=== PATIENT | male | born 1980 | race Two or more races ===

== ENCOUNTER 2019-12-06 12:43 | Outpatient (REF) | payer MEDICARE, MEDICAID, SELFPAY ==
[2019-12-06 13:23] LABS: MANUAL DIFF FLAG NO
[2019-12-06 13:38] LABS: Basophils Percent Auto 0.1 % (0-2); Eosinophils Percent Auto 0.1 % (0-4); Hematocrit 44.8 % (42-52); Hemoglobin 13.1 g/dl (14.0-18.0); Imm Gran Abs Auto 0.06 X10*3/uL (0.00-0.03); Imm Gran Pct Auto 0.6 % (0.0-0.4); Lymphocytes Absolute Auto 2.6 X10*3/uL (1.2-4.9); Lymphocytes Percent Auto 27.2 % (20-40); Mean Corpuscular HGB Conc 29.2 g/dl (31.0-36.0); Mean Corpuscular Hemoglobin 21.2 pg (27.0-33.0); Mean Corpuscular Volume 72.5 fL (80-98); Mean Platelet Volume 10.1 fL (9.4-12.4); Monocytes Absolute Auto 0.7 X10*3/uL (0.1-1.2); Monocytes Percent Auto 7.1 % (2-11); Neutrophils Absolute Auto 6.1 X10*3/uL (2.0-8.3); Neutrophils Percent Auto 64.9 % (45-73); Platelet Count 305 X10*3/uL (160-400); Red Blood Count 6.18 X10*6/uL (4.60-5.80); Red Cell Distribution Width 20.3 % (11.0-16.0); White Blood Count 9.4 X10*3/uL (4.8-10.8)
== END 2019-12-06 12:44 | disposition home or self-care (01) ==
LOC: HO.LABR 12:43
PROVIDERS: PCP Internal Medicine; Visit Provider Clinical Nurse Specialist Psychiatric/Mental Health, Adult
DX: Z79.899 Other long term (current) drug therapy (principal)
CPT/HCPCS: 36415; 85025

== ENCOUNTER 2019-12-27 09:57 | Outpatient (REF) | payer MEDICARE, MEDICAID, SELFPAY ==
[2019-12-27 10:36] LABS: MANUAL DIFF FLAG NO
[2019-12-27 10:49] LABS: Basophils Percent Auto 0.1 % (0-2); Hematocrit 45.3 % (42-52); Hemoglobin 13.2 g/dl (14.0-18.0); Imm Gran Abs Auto 0.06 X10*3/uL (0.00-0.03); Imm Gran Pct Auto 0.6 % (0.0-0.4); Lymphocytes Absolute Auto 2.5 X10*3/uL (1.2-4.9); Lymphocytes Percent Auto 25.5 % (20-40); Mean Corpuscular HGB Conc 29.1 g/dl (31.0-36.0); Mean Corpuscular Hemoglobin 21.1 pg (27.0-33.0); Mean Corpuscular Volume 72.2 fL (80-98); Mean Platelet Volume 10.2 fL (9.4-12.4); Monocytes Absolute Auto 0.8 X10*3/uL (0.1-1.2); Neutrophils Absolute Auto 6.4 X10*3/uL (2.0-8.3); Neutrophils Percent Auto 65.8 % (45-73); Platelet Count 293 X10*3/uL (160-400); Red Blood Count 6.27 X10*6/uL (4.60-5.80); Red Cell Distribution Width 19.9 % (11.0-16.0); White Blood Count 9.7 X10*3/uL (4.8-10.8)
== END 2019-12-27 09:58 | disposition home or self-care (01) ==
LOC: HO.LABR 09:57
PROVIDERS: PCP Internal Medicine; Visit Provider Clinical Nurse Specialist Psychiatric/Mental Health, Adult
DX: Z79.899 Other long term (current) drug therapy (principal)
CPT/HCPCS: 36415; 85025

== ENCOUNTER 2020-01-16 12:38 | Outpatient (REF) | payer MEDICARE, MEDICAID, SELFPAY ==
[2020-01-16 13:33] LABS: Mean Corpuscular Volume 71.8 fL (80-98); Red Blood Count 6.27 X10*6/uL (4.60-5.80); Red Cell Distribution Width 19.6 % (11.0-16.0)
[2020-01-16 13:36] LABS: Hemoglobin 13.1 g/dl (14.0-18.0); Imm Gran Abs Auto 0.04 X10*3/uL (0.00-0.03); Imm Gran Pct Auto 0.4 % (0.0-0.4); Lymphocytes Absolute Auto 2.3 X10*3/uL (1.2-4.9); Lymphocytes Percent Auto 21.7 % (20-40); Mean Corpuscular HGB Conc 29.1 g/dl (31.0-36.0); Mean Corpuscular Hemoglobin 20.9 pg (27.0-33.0); Monocytes Absolute Auto 0.7 X10*3/uL (0.1-1.2); Monocytes Percent Auto 6.9 % (2-11); Neutrophils Absolute Auto 7.7 X10*3/uL (2.0-8.3); Platelet Count 300 X10*3/uL (160-400); White Blood Count 10.8 X10*3/uL (4.8-10.8)
== END 2020-01-16 12:39 | disposition home or self-care (01) ==
LOC: HO.LABR 12:38
PROVIDERS: PCP Internal Medicine; Visit Provider Clinical Nurse Specialist Psychiatric/Mental Health, Adult
DX: Z79.899 Other long term (current) drug therapy (principal)
CPT/HCPCS: 36415; 85025

== ENCOUNTER 2020-02-06 14:00 | Outpatient (REF) | payer MEDICARE, MEDICAID, SELFPAY ==
[2020-02-06 15:04] LABS: Eosinophils Percent Auto 0.1 % (0-4); Imm Gran Abs Auto 0.03 X10*3/uL (0.00-0.03); Imm Gran Pct Auto 0.3 % (0.0-0.4); Lymphocytes Percent Auto 28.6 % (20-40); MANUAL DIFF FLAG SCAN; Red Cell Distribution Width 19.5 % (11.0-16.0); SCAN SMEAR FLAG 1
[2020-02-06 15:06] LABS: Basophils Percent Auto 0.2 % (0-2); Hematocrit 45.2 % (42-52); Hemoglobin 13.1 g/dl (14.0-18.0); Mean Corpuscular Hemoglobin 20.9 pg (27.0-33.0); Mean Corpuscular Volume 72.1 fL (80-98); Mean Platelet Volume 10.1 fL (9.4-12.4); Monocytes Absolute Auto 0.9 X10*3/uL (0.1-1.2); Monocytes Percent Auto 8.7 % (2-11); Neutrophils Absolute Auto 6.6 X10*3/uL (2.0-8.3); Neutrophils Percent Auto 62.1 % (45-73); Platelet Count 304 X10*3/uL (160-400); Red Blood Count 6.27 X10*6/uL (4.60-5.80); White Blood Count 10.6 X10*3/uL (4.8-10.8)
[2020-02-06 15:10] LABS: PLT ABN DIST 1
[2020-02-06 15:36] LABS: SLIDE REVIEW VERIFIED
== END 2020-02-06 14:01 | disposition home or self-care (01) ==
LOC: HO.LABR 14:00
PROVIDERS: PCP Internal Medicine; Visit Provider Clinical Nurse Specialist Psychiatric/Mental Health, Adult
DX: Z79.899 Other long term (current) drug therapy (principal)
CPT/HCPCS: 36415; 85025

== ENCOUNTER 2020-03-05 10:01 | Outpatient (REF) | payer MEDICARE, MEDICAID, SELFPAY ==
[2020-03-05 10:45] LABS: Eosinophils Percent Auto 0.1 % (0-4)
[2020-03-05 10:46] LABS: Basophils Percent Auto 0.1 % (0-2); Imm Gran Abs Auto 0.04 X10*3/uL (0.00-0.03); Imm Gran Pct Auto 0.4 % (0.0-0.4); Lymphocytes Absolute Auto 2.1 X10*3/uL (1.2-4.9); Lymphocytes Percent Auto 23.8 % (20-40); Mean Corpuscular HGB Conc 29.5 g/dl (31.0-36.0); Mean Corpuscular Hemoglobin 21.5 pg (27.0-33.0); Mean Corpuscular Volume 72.6 fL (80-98); Mean Platelet Volume 10.4 fL (9.4-12.4); Monocytes Absolute Auto 0.7 X10*3/uL (0.1-1.2); Monocytes Percent Auto 7.3 % (2-11); Neutrophils Absolute Auto 6.1 X10*3/uL (2.0-8.3); Neutrophils Percent Auto 68.3 % (45-73); Platelet Count 310 X10*3/uL (160-400); Red Blood Count 6.06 X10*6/uL (4.60-5.80); Red Cell Distribution Width 19.9 % (11.0-16.0)
[2020-03-05 10:51] LABS: MANUAL DIFF FLAG NO
== END 2020-03-05 10:02 | disposition home or self-care (01) ==
LOC: HO.LABR 10:01
PROVIDERS: PCP Internal Medicine; Visit Provider Clinical Nurse Specialist Psychiatric/Mental Health, Adult
DX: Z79.899 Other long term (current) drug therapy (principal)
CPT/HCPCS: 36415; 85025

== ENCOUNTER 2020-04-02 13:20 | Outpatient (REF) | payer MEDICARE, MEDICAID, SELFPAY ==
[2020-04-02 14:20] LABS: Mean Corpuscular Volume 71.8 fL (80-98)
[2020-04-02 14:22] LABS: Basophils Percent Auto 0.1 % (0-2); Eosinophils Percent Auto 0.1 % (0-4); Hemoglobin 13.3 g/dl (14.0-18.0); Imm Gran Abs Auto 0.04 X10*3/uL (0.00-0.03); Imm Gran Pct Auto 0.4 % (0.0-0.4); Lymphocytes Absolute Auto 3.1 X10*3/uL (1.2-4.9); Lymphocytes Percent Auto 29.9 % (20-40); Mean Corpuscular HGB Conc 29.6 g/dl (31.0-36.0); Mean Corpuscular Hemoglobin 21.2 pg (27.0-33.0); Monocytes Absolute Auto 0.7 X10*3/uL (0.1-1.2); Monocytes Percent Auto 7.1 % (2-11); Neutrophils Absolute Auto 6.4 X10*3/uL (2.0-8.3); Neutrophils Percent Auto 62.4 % (45-73); Platelet Count 314 X10*3/uL (160-400); Red Blood Count 6.27 X10*6/uL (4.60-5.80); Red Cell Distribution Width 19.7 % (11.0-16.0); White Blood Count 10.3 X10*3/uL (4.8-10.8)
[2020-04-02 14:39] LABS: MANUAL DIFF FLAG NO
[2020-04-02 14:44] LABS: Lithium 0.45 mmol/L (0.60-1.20)
[2020-04-02 14:47] LABS: Anion Gap 18 (12-20); Blood Urea Nitrogen 14 mg/dL (9-16); Carbon Dioxide 21 mmol/L (22-29); Chloride 104 mmol/L (96-108); Estimated Glomerular Filt Rate > 60; Glucose Random 213 mg/dL (60-115); Potassium 5.3 mmol/L (3.3-5.1); Sodium 138 mmol/L (135-145)
[2020-04-02 14:54] LABS: Thyroid Stimulating Hormone 2.81 uIU/mL (0.32-4.0)
[2020-04-02 14:56] LABS: Calcium 10.8 mg/dL (8.4-10.2)
== END 2020-04-02 13:21 | disposition home or self-care (01) ==
LOC: HO.LAB 13:20
PROVIDERS: PCP Internal Medicine; Visit Provider Clinical Nurse Specialist Psychiatric/Mental Health, Adult
DX: Z79.899 Other long term (current) drug therapy (principal)
CPT/HCPCS: 36415; 80048; 80178; 84443; 85025

== ENCOUNTER 2020-04-03 13:51 | Outpatient (REF) | payer MEDICARE, MEDICAID, SELFPAY ==
[2020-04-03 16:45] LABS: Basophils Percent Auto 0.1 % (0-2); Hemoglobin 13.2 g/dl (14.0-18.0); Imm Gran Pct Auto 0.5 % (0.0-0.4); MANUAL DIFF FLAG SCAN; SCAN SMEAR FLAG 1
[2020-04-03 16:46] LABS: Eosinophils Absolute Auto 0.1 X10*3/uL (0.0-0.4); Eosinophils Percent Auto 0.5 % (0-4); Hematocrit 44.1 % (42-52); Imm Gran Abs Auto 0.06 X10*3/uL (0.00-0.03); Lymphocytes Absolute Auto 3.4 X10*3/uL (1.2-4.9); Mean Corpuscular HGB Conc 29.9 g/dl (31.0-36.0); Mean Corpuscular Hemoglobin 21.5 pg (27.0-33.0); Mean Corpuscular Volume 71.9 fL (80-98); Monocytes Absolute Auto 0.8 X10*3/uL (0.1-1.2); Neutrophils Absolute Auto 6.7 X10*3/uL (2.0-8.3); Neutrophils Percent Auto 60.9 % (45-73); Platelet Count 341 X10*3/uL (160-400); Red Blood Count 6.13 X10*6/uL (4.60-5.80); Red Cell Distribution Width 19.6 % (11.0-16.0); White Blood Count 10.9 X10*3/uL (4.8-10.8)
[2020-04-03 16:47] LABS: PLT ABN DIST 1
[2020-04-03 17:06] LABS: Alanine Aminotransferase 22 U/L (0-40); Albumin Level 4.5 g/dL (3.5-5.0); Alkaline Phosphatase 119 U/L (39-117); Anion Gap 15 (12-20); Aspartate Amino Transferase 17 U/L (5-37); Bilirubin Total 0.2 mg/dL (0.0-1.0); Blood Urea Nitrogen 15 mg/dL (9-16); Calcium 10.1 mg/dL (8.4-10.2); Carbon Dioxide 21 mmol/L (22-29); Chloride 103 mmol/L (96-108); Cholesterol 212 mg/dL; Estimated Glomerular Filt Rate > 60; Glucose Fasting 112 mg/dL (60-99); HDL Cholesterol 30 mg/dL; Potassium 4.9 mmol/L (3.3-5.1); Sodium 134 mmol/L (135-145); Total Protein 7.9 g/dL (6.5-8.0); Triglycerides 545 mg/dL
[2020-04-03 17:11] LABS: SLIDE REVIEW VERIFIED
== END 2020-04-03 13:52 | disposition home or self-care (01) ==
LOC: HO.HMGCLDS 13:51
PROVIDERS: PCP Internal Medicine; Visit Provider Internal Medicine
DX: E11.65 Type 2 diabetes mellitus with hyperglycemia (principal); E78.5 Hyperlipidemia, unspecified; I10 Essential (primary) hypertension; Z79.4 Long term (current) use of insulin
CPT/HCPCS: 36415; 80053; 80061; 85025

== ENCOUNTER → 2020-04-25 11:07 | Outpatient (BNVA) | payer MEDICARE, MEDICAID, SELFPAY | PROVIDERS: PCP Internal Medicine; Visit Provider Internal Medicine Pulmonary Disease | DX: R91.1 Solitary pulmonary nodule (principal); J43.9 Emphysema, unspecified | CPT/HCPCS: 99202 ==

== ENCOUNTER 2020-04-29 12:49 | Outpatient (REF) | payer MEDICARE, MEDICAID, SELFPAY ==
[2020-04-29 13:55] LABS: Basophils Percent Auto 0.1 % (0-2); Hemoglobin 12.4 g/dl (14.0-18.0); MANUAL DIFF FLAG SCAN; Monocytes Absolute Auto 0.6 X10*3/uL (0.1-1.2); SCAN SMEAR FLAG 1
[2020-04-29 13:56] LABS: Eosinophils Percent Auto 0.1 % (0-4); Hematocrit 41.4 % (42-52); Imm Gran Abs Auto 0.03 X10*3/uL (0.00-0.03); Imm Gran Pct Auto 0.3 % (0.0-0.4); Lymphocytes Absolute Auto 2.7 X10*3/uL (1.2-4.9); Lymphocytes Percent Auto 29.6 % (20-40); Mean Corpuscular Hemoglobin 21.2 pg (27.0-33.0); Mean Corpuscular Volume 70.8 fL (80-98); Mean Platelet Volume 10.3 fL (9.4-12.4); Monocytes Percent Auto 7.1 % (2-11); Neutrophils Absolute Auto 5.7 X10*3/uL (2.0-8.3); Neutrophils Percent Auto 62.8 % (45-73); Platelet Count 305 X10*3/uL (160-400); Red Blood Count 5.85 X10*6/uL (4.60-5.80); Red Cell Distribution Width 19.2 % (11.0-16.0); White Blood Count 9.1 X10*3/uL (4.8-10.8)
[2020-04-29 14:02] LABS: PLT ABN DIST 1
[2020-04-29 14:56] LABS: SLIDE REVIEW VERIFIED
[2020-04-29 15:24] LABS: Creatinine Urine 31.33 mg/dL
== END 2020-04-29 12:50 | disposition home or self-care (01) ==
LOC: HO.LABR 12:49
PROVIDERS: Absent Provider Internal Medicine; PCP Internal Medicine; Visit Provider Clinical Nurse Specialist Psychiatric/Mental Health, Adult
DX: I10 Essential (primary) hypertension (principal); E78.5 Hyperlipidemia, unspecified; E11.65 Type 2 diabetes mellitus with hyperglycemia; Z79.899 Other long term (current) drug therapy; Z79.4 Long term (current) use of insulin
CPT/HCPCS: 36415; 82043; 85025

== ENCOUNTER 2020-05-17 12:41 | Outpatient (REF) | payer MEDICARE, MEDICAID, SELFPAY ==
--- NOTE | ~2020-05-17 | CT_ITS ---
EXAMINATION: CT CHEST WITHOUT CONTRAST CLINICAL INFORMATION: Pulmonary nodule. COMPARISON: CT chest 02/07/2015. TECHNIQUE: Multidetector volumetric CT imaging of the chest was done. Axial MIP volume rendering provided. Sagittal and coronal reformatted images were obtained. This CT examination was performed using dose optimization techniques as appropriate, variously including the following: *Automated exposure control *Adjustment of mA and/or kV according to patient size (this includes techniques or standardized protocols for targeted exams where dose is matched to indication/reason for exam; i.e. extremities or head) *Use of iterative reconstruction technique DLP: 225 mGy-cm FINDINGS: STUDIO MUSICIAN: Well-expanded lungs. LUNGS: There are diffuse emphysematous changes of the lungs without any acute pneumonic process. There is a 3 mm nodule right upper lobe along the posterior major fissure axial image 168/8, previously measured 2 mm. There is 3 mm nodule right upper lobe laterally axial image 168/6, stable. There is a 2 mm nodule left upper lobe axial image 174/8, stable. 2 mm two nodules in left upper lobe axial image 178/8, stable. 1 mm calcified nodule right lower lobe image 72/7, largest 9 mm nodule right middle lobe attached to the major fissure axial image 325/8, stable. There is no acute consolidation, mass or ground-glass density. MEDIASTINUM: The thyroid lobes are symmetric and normal. The central trachea and bronchi are widely patent. The heart size and the great vessels are normal caliber. No pericardial effusion seen. There are no abnormal-sized mediastinal or hilar lymph nodes seen. PLEURA: There is no pleural effusion. No pleural mass or thickening. AXILLA: No abnormal axillary lymph node seen. There is a 1.4 cm lymph node right axilla. The chest wall is unremarkable. UPPER ABDOMEN: There is likely mild cardiomegaly. Otherwise rest of visualized liver, spleen, pancreas and bilateral adrenal glands are unremarkable. Bone windows reveal no calvarial abnormality. OSSEOUS STRUCTURES: There is moderate ventral spondylosis mid and lower dorsal spine. No lytic process. CT/CT chest wo con IMPRESSION: Multiple bilateral pulmonary nodules. Some of the nodules including largest nodule appears slightly larger measuring 9 mm on today's exam compared to [address] chest exam. No abnormal mediastinal lymphadenopathy or mass seen.
== END 2020-05-17 12:42 | disposition home or self-care (01) ==
LOC: HO.CT 12:41
PROVIDERS: Visit Provider Internal Medicine Pulmonary Disease
DX: R91.1 Solitary pulmonary nodule (principal)
CPT/HCPCS: 71250

== ENCOUNTER → 2020-05-21 14:19 | Outpatient (BNVA) | payer MEDICARE, MEDICAID, SELFPAY | PROVIDERS: PCP Internal Medicine; Visit Provider Internal Medicine Pulmonary Disease | DX: J43.9 Emphysema, unspecified (principal); R91.8 Other nonspecific abnormal finding of lung field; F17.200 Nicotine dependence, unspecified, uncomplicated; Z71.6 Tobacco abuse counseling | CPT/HCPCS: 99212 ==

== ENCOUNTER 2020-05-27 13:23 | Outpatient (REF) | payer MEDICARE, MEDICAID, SELFPAY ==
[2020-05-27 13:40] LABS: MANUAL DIFF FLAG NO
[2020-05-27 13:42] LABS: Basophils Percent Auto 0.1 % (0-2); Eosinophils Percent Auto 0.2 % (0-4); Hematocrit 42.2 % (42-52); Hemoglobin 12.5 g/dl (14.0-18.0); Imm Gran Abs Auto 0.06 X10*3/uL (0.00-0.03); Imm Gran Pct Auto 0.6 % (0.0-0.4); Lymphocytes Absolute Auto 2.8 X10*3/uL (1.2-4.9); Lymphocytes Percent Auto 27.5 % (20-40); Mean Corpuscular HGB Conc 29.6 g/dl (31.0-36.0); Mean Corpuscular Volume 70.8 fL (80-98); Mean Platelet Volume 9.7 fL (9.4-12.4); Monocytes Absolute Auto 0.7 X10*3/uL (0.1-1.2); Monocytes Percent Auto 6.8 % (2-11); Neutrophils Absolute Auto 6.6 X10*3/uL (2.0-8.3); Neutrophils Percent Auto 64.8 % (45-73); Platelet Count 314 X10*3/uL (160-400); Red Blood Count 5.96 X10*6/uL (4.60-5.80); Red Cell Distribution Width 18.6 % (11.0-16.0); White Blood Count 10.2 X10*3/uL (4.8-10.8)
== END 2020-05-27 13:24 | disposition home or self-care (01) ==
LOC: HO.LABR 13:23
PROVIDERS: PCP Internal Medicine; Visit Provider Clinical Nurse Specialist Psychiatric/Mental Health, Adult
DX: Z79.899 Other long term (current) drug therapy (principal)
CPT/HCPCS: 36415; 85025

== ENCOUNTER 2020-05-29 12:38 | Outpatient (REF) | payer MEDICARE, MEDICAID, SELFPAY ==
--- NOTE | 2020-05-29 13:50 | PFT_ITS ---
FLOWS: FEV1 of 70% of predicted at 2.78 L. FVC 67% of predicted at 3.28 L. FEV1 to FVC ratio of 0.85. No bronchodilator response except in small to medium airways. LUNG VOLUMES: Total lung capacity 71% of predicted at 4.64 L. Residual volume 84% of predicted at 1.47 L. Slow vital capacity 66% of predicted at 3.17 L. Expiratory reserve volume 44% of predicted at 0.65 L. Diffusion capacity is moderately decreased, diffusion capacity improves to being mildly decreased after adjustment for alveolar ventilation. IMPRESSION: Moderate restrictive ventilatory defect with no bronchodilator response except in small to medium airways. Decreased diffusion capacity together with restrictive ventilatory defect suggests underlying pulmonary parenchymal disease. Clinical correlation is advised. MD DAVE Gardiner/MODL / [id number] MTDD
== END 2020-05-29 12:39 | disposition home or self-care (01) ==
LOC: HO.RESP 12:38
PROVIDERS: PCP Internal Medicine; Visit Provider Internal Medicine Pulmonary Disease
DX: J43.9 Emphysema, unspecified (principal)
CPT/HCPCS: 94060; 94727; 94729

== ENCOUNTER 2020-06-24 13:18 | Outpatient (REF) | payer MEDICARE, MEDICAID, SELFPAY ==
[2020-06-24 14:06] LABS: Basophils Percent Auto 0.2 % (0-2); Hematocrit 43.2 % (42-52); Red Cell Distribution Width 19.7 % (11.0-16.0); SCAN SMEAR FLAG 1
[2020-06-24 14:08] LABS: Eosinophils Percent Auto 0.2 % (0-4); Hemoglobin 12.3 g/dl (14.0-18.0); Imm Gran Abs Auto 0.04 X10*3/uL (0.00-0.03); Imm Gran Pct Auto 0.4 % (0.0-0.4); Lymphocytes Absolute Auto 2.9 X10*3/uL (1.2-4.9); Lymphocytes Percent Auto 27.6 % (20-40); Mean Corpuscular HGB Conc 28.5 g/dl (31.0-36.0); Mean Corpuscular Hemoglobin 20.3 pg (27.0-33.0); Mean Corpuscular Volume 71.3 fL (80-98); Mean Platelet Volume 10.2 fL (9.4-12.4); Monocytes Absolute Auto 0.8 X10*3/uL (0.1-1.2); Monocytes Percent Auto 7.4 % (2-11); Neutrophils Absolute Auto 6.7 X10*3/uL (2.0-8.3); Neutrophils Percent Auto 64.2 % (45-73); Platelet Count 283 X10*3/uL (160-400); Red Blood Count 6.06 X10*6/uL (4.60-5.80); White Blood Count 10.4 X10*3/uL (4.8-10.8)
[2020-06-24 14:14] LABS: PLT ABN DIST 1
== END 2020-06-24 13:19 | disposition home or self-care (01) ==
LOC: HO.LABR 13:18
PROVIDERS: PCP Internal Medicine; Visit Provider Clinical Nurse Specialist Psychiatric/Mental Health, Adult
DX: Z79.899 Other long term (current) drug therapy (principal)
CPT/HCPCS: 36415; 85025

== ENCOUNTER 2020-07-22 13:25 | Outpatient (REF) | payer MEDICARE, MEDICAID, SELFPAY ==
[2020-07-22 14:45] LABS: Basophils Percent Auto 0.1 % (0-2); Hemoglobin 12.4 g/dl (14.0-18.0); Lymphocytes Percent Auto 26.7 % (20-40); SCAN SMEAR FLAG 1
[2020-07-22 14:48] LABS: Hematocrit 43.1 % (42-52); Imm Gran Abs Auto 0.05 X10*3/uL (0.00-0.03); Imm Gran Pct Auto 0.5 % (0.0-0.4); Lymphocytes Absolute Auto 2.7 X10*3/uL (1.2-4.9); Mean Corpuscular HGB Conc 28.8 g/dl (31.0-36.0); Mean Corpuscular Hemoglobin 20.8 pg (27.0-33.0); Mean Corpuscular Volume 72.4 fL (80-98); Mean Platelet Volume 10.5 fL (9.4-12.4); Monocytes Absolute Auto 0.7 X10*3/uL (0.1-1.2); Monocytes Percent Auto 7.3 % (2-11); Neutrophils Absolute Auto 6.7 X10*3/uL (2.0-8.3); Neutrophils Percent Auto 65.4 % (45-73); Platelet Count 297 X10*3/uL (160-400); Red Blood Count 5.95 X10*6/uL (4.60-5.80); Red Cell Distribution Width 22.9 % (11.0-16.0); White Blood Count 10.2 X10*3/uL (4.8-10.8)
[2020-07-22 14:58] LABS: PLT ABN DIST 1
== END 2020-07-22 13:26 | disposition home or self-care (01) ==
LOC: HO.LABR 13:25
PROVIDERS: PCP Internal Medicine; Visit Provider Clinical Nurse Specialist Psychiatric/Mental Health, Adult
DX: Z79.899 Other long term (current) drug therapy (principal)
CPT/HCPCS: 36415; 85025

== ENCOUNTER 2020-08-19 11:19 | Outpatient (REF) | payer MEDICARE, MEDICAID, SELFPAY ==
[2020-08-19 12:01] LABS: Basophils Percent Auto 0.1 % (0-2); Imm Gran Abs Auto 0.05 X10*3/uL (0.00-0.03); Imm Gran Pct Auto 0.5 % (0.0-0.4); MANUAL DIFF FLAG SCAN; Monocytes Percent Auto 6.1 % (2-11); SCAN SMEAR FLAG 1
[2020-08-19 12:03] LABS: Eosinophils Percent Auto 0.1 % (0-4); Hematocrit 44.8 % (42-52); Hemoglobin 13.6 g/dl (14.0-18.0); Lymphocytes Absolute Auto 2.7 X10*3/uL (1.2-4.9); Lymphocytes Percent Auto 25.7 % (20-40); Mean Corpuscular HGB Conc 30.4 g/dl (31.0-36.0); Mean Corpuscular Hemoglobin 22.2 pg (27.0-33.0); Mean Corpuscular Volume 73.1 fL (80-98); Monocytes Absolute Auto 0.6 X10*3/uL (0.1-1.2); Neutrophils Percent Auto 67.5 % (45-73); Red Blood Count 6.13 X10*6/uL (4.60-5.80); Red Cell Distribution Width 23.2 % (11.0-16.0)
[2020-08-19 12:08] LABS: PLT ABN DIST 1
[2020-08-19 12:22] LABS: White Blood Count 10.4 X10*3/uL (4.8-10.8)
[2020-08-19 12:23] LABS: Platelet Count 295 X10*3/uL (160-400)
[2020-08-19 12:36] LABS: SLIDE REVIEW VERIFIED
== END 2020-08-19 11:20 | disposition home or self-care (01) ==
LOC: HO.LABR 11:19
PROVIDERS: PCP Internal Medicine; Visit Provider Clinical Nurse Specialist Psychiatric/Mental Health, Adult
DX: Z79.899 Other long term (current) drug therapy (principal)
CPT/HCPCS: 36415; 85025

== ENCOUNTER 2020-09-16 14:11 | Outpatient (REF) | payer MEDICARE, MEDICAID, SELFPAY ==
[2020-09-16 15:03] LABS: Basophils Percent Auto 0.1 % (0-2); Imm Gran Abs Auto 0.04 X10*3/uL (0.00-0.03); Imm Gran Pct Auto 0.4 % (0.0-0.4); Monocytes Absolute Auto 0.6 X10*3/uL (0.1-1.2); Neutrophils Percent Auto 67.4 % (45-73); Red Cell Distribution Width 22.5 % (11.0-16.0); SCAN SMEAR FLAG 1
[2020-09-16 15:05] LABS: Hematocrit 46.7 % (42-52); Hemoglobin 13.9 g/dl (14.0-18.0); Lymphocytes Absolute Auto 2.4 X10*3/uL (1.2-4.9); Lymphocytes Percent Auto 25.5 % (20-40); Mean Corpuscular HGB Conc 29.8 g/dl (31.0-36.0); Mean Corpuscular Hemoglobin 23.4 pg (27.0-33.0); Mean Corpuscular Volume 78.5 fL (80-98); Monocytes Percent Auto 6.6 % (2-11); Neutrophils Absolute Auto 6.2 X10*3/uL (2.0-8.3); Platelet Count 266 X10*3/uL (160-400); Red Blood Count 5.95 X10*6/uL (4.60-5.80); White Blood Count 9.3 X10*3/uL (4.8-10.8)
[2020-09-16 15:11] LABS: PLT ABN DIST 1
== END 2020-09-16 14:12 | disposition home or self-care (01) ==
LOC: HO.LABR 14:11
PROVIDERS: Absent Provider Clinical Nurse Specialist Psychiatric/Mental Health, Adult; PCP Internal Medicine; Visit Provider Internal Medicine
DX: Z79.899 Other long term (current) drug therapy (principal)
CPT/HCPCS: 36415; 85025

== ENCOUNTER 2020-09-30 09:53 | Outpatient (REF) | payer MEDICARE, MEDICAID, SELFPAY ==
[2020-09-30 11:21] LABS: MANUAL DIFF FLAG NO
[2020-09-30 11:49] LABS: Basophils Percent Auto 0.1 % (0-2); Hematocrit 51.8 % (42-52); Hemoglobin 15.7 g/dl (14.0-18.0); Imm Gran Abs Auto 0.04 X10*3/uL (0.00-0.03); Imm Gran Pct Auto 0.5 % (0.0-0.4); Lymphocytes Absolute Auto 2.2 X10*3/uL (1.2-4.9); Lymphocytes Percent Auto 25.1 % (20-40); Mean Corpuscular HGB Conc 30.3 g/dl (31.0-36.0); Mean Corpuscular Hemoglobin 24.1 pg (27.0-33.0); Mean Corpuscular Volume 79.6 fL (80-98); Mean Platelet Volume 9.9 fL (9.4-12.4); Monocytes Absolute Auto 0.6 X10*3/uL (0.1-1.2); Neutrophils Absolute Auto 5.8 X10*3/uL (2.0-8.3); Neutrophils Percent Auto 67.3 % (45-73); Platelet Count 254 X10*3/uL (160-400); Red Blood Count 6.51 X10*6/uL (4.60-5.80); Red Cell Distribution Width 21.7 % (11.0-16.0); White Blood Count 8.6 X10*3/uL (4.8-10.8)
[2020-09-30 11:57] LABS: Estimated Average Glucose 111 mg/dL; Hemoglobin A1c % 5.5 %
[2020-09-30 12:02] LABS: Alanine Aminotransferase 24 U/L (0-40); Anion Gap 13 (12-20); Aspartate Amino Transferase 24 U/L (5-37); Blood Urea Nitrogen 8 mg/dL (9-16); Calcium 10.6 mg/dL (8.4-10.2); Carbon Dioxide 22 mmol/L (22-29); Chloride 108 mmol/L (96-108); Cholesterol 208 mg/dL; Estimated Glomerular Filt Rate > 60; Glucose Fasting 52 mg/dL (60-99); HDL Cholesterol 30 mg/dL; Iron 94 mcg/dL (45-160); LDL Cholesterol Calculated 123 mg/dl; Percent Iron Saturation 22 % (15-50); Potassium 4.5 mmol/L (3.3-5.1); Sodium 138 mmol/L (135-145); Total Iron Binding Capacity 421 mcg/dL (228-428); Triglycerides 275 mg/dL; Unsaturated Iron Binding 327 ug/dL
== END 2020-09-30 09:54 | disposition home or self-care (01) ==
LOC: HO.HMGCLDS 09:53
PROVIDERS: PCP Internal Medicine; Visit Provider Internal Medicine
DX: E78.1 Pure hyperglyceridemia (principal); D50.9 Iron deficiency anemia, unspecified; E11.29 Type 2 diabetes mellitus with other diabetic kidney complication; E66.9 Obesity, unspecified; I10 Essential (primary) hypertension
CPT/HCPCS: 36415; 80048; 80061; 83036; 83540; 84450; 84460; 85025

== ENCOUNTER 2020-10-14 13:55 | Outpatient (REF) | payer MEDICARE, MEDICAID, SELFPAY ==
[2020-10-14 14:55] LABS: Basophils Percent Auto 0.1 % (0-2); Eosinophils Percent Auto 0.1 % (0-4); Hemoglobin 15.9 g/dl (14.0-18.0); Imm Gran Abs Auto 0.06 X10*3/uL (0.00-0.03); Imm Gran Pct Auto 0.6 % (0.0-0.4); Red Cell Distribution Width 20.3 % (11.0-16.0)
[2020-10-14 14:57] LABS: Hematocrit 50.7 % (42-52); Lymphocytes Absolute Auto 2.7 X10*3/uL (1.2-4.9); Lymphocytes Percent Auto 25.5 % (20-40); Mean Corpuscular HGB Conc 31.4 g/dl (31.0-36.0); Mean Corpuscular Hemoglobin 24.9 pg (27.0-33.0); Mean Corpuscular Volume 79.5 fL (80-98); Monocytes Absolute Auto 0.8 X10*3/uL (0.1-1.2); Neutrophils Absolute Auto 7.1 X10*3/uL (2.0-8.3); Neutrophils Percent Auto 66.7 % (45-73); Platelet Count 280 X10*3/uL (160-400); Red Blood Count 6.38 X10*6/uL (4.60-5.80); White Blood Count 10.7 X10*3/uL (4.8-10.8)
[2020-10-14 14:59] LABS: MANUAL DIFF FLAG NO
== END 2020-10-14 13:56 | disposition home or self-care (01) ==
LOC: HO.LABR 13:55
PROVIDERS: PCP Internal Medicine; Visit Provider Clinical Nurse Specialist Psychiatric/Mental Health, Adult
DX: Z79.899 Other long term (current) drug therapy (principal)
CPT/HCPCS: 36415; 85025

== ENCOUNTER 2020-11-05 10:06 | Outpatient (REF) | payer MEDICARE, MEDICAID, SELFPAY ==
[2020-11-05 10:48] LABS: MANUAL DIFF FLAG NO
[2020-11-05 11:02] LABS: Basophils Percent Auto 0.1 % (0-2); Hematocrit 51.4 % (42-52); Hemoglobin 16.5 g/dl (14.0-18.0); Imm Gran Abs Auto 0.07 X10*3/uL (0.00-0.03); Imm Gran Pct Auto 0.7 % (0.0-0.4); Lymphocytes Absolute Auto 2.4 X10*3/uL (1.2-4.9); Lymphocytes Percent Auto 23.3 % (20-40); Mean Corpuscular HGB Conc 32.1 g/dl (31.0-36.0); Mean Corpuscular Hemoglobin 25.9 pg (27.0-33.0); Mean Corpuscular Volume 80.6 fL (80-98); Mean Platelet Volume 10.2 fL (9.4-12.4); Monocytes Absolute Auto 0.7 X10*3/uL (0.1-1.2); Monocytes Percent Auto 6.7 % (2-11); Neutrophils Absolute Auto 7.1 X10*3/uL (2.0-8.3); Neutrophils Percent Auto 69.2 % (45-73); Platelet Count 266 X10*3/uL (160-400); Red Blood Count 6.38 X10*6/uL (4.60-5.80); Red Cell Distribution Width 19.6 % (11.0-16.0); White Blood Count 10.2 X10*3/uL (4.8-10.8)
== END 2020-11-05 10:07 | disposition home or self-care (01) ==
LOC: HO.LABR 10:06
PROVIDERS: PCP Internal Medicine; Visit Provider Clinical Nurse Specialist Psychiatric/Mental Health, Adult
DX: Z79.899 Other long term (current) drug therapy (principal)
CPT/HCPCS: 36415; 85025

== ENCOUNTER 2020-11-11 12:56 | Outpatient (REF) | payer MEDICARE, MEDICAID, SELFPAY ==
--- NOTE | ~2020-11-11 | CT_ITS ---
EXAMINATION: CT CHEST WITHOUT CONTRAST CLINICAL INFORMATION: Follow-up pulmonary nodule COMPARISON: Previous chest CT scans most recent April 2020 TECHNIQUE: Multidetector volumetric CT imaging of the chest was done. Axial MIP volume rendering provided. Sagittal and coronal reformatted images were obtained. This CT examination was performed using dose optimization techniques as appropriate, variously including the following: *Automated exposure control *Adjustment of mA and/or kV according to patient size (this includes techniques or standardized protocols for targeted exams where dose is matched to indication/reason for exam; i.e. extremities or head) *Use of iterative reconstruction technique DLP: 236 mGy-cm FINDINGS: LUNGS: There are bilateral pulmonary nodules that are stable. Largest pulmonary nodule is a 9 mm right middle lobe nodule adjacent to the major fissure. No new pulmonary nodule is seen. MEDIASTINUM: There are small mediastinal lymph nodes that are stable. No enlarged lymph nodes are seen. The mediastinum is otherwise normal. PLEURA: There is no pleural effusion. No pleural mass or thickening. AXILLA: There are small bilateral axillary lymph nodes that are stable. No enlarged lymph nodes or chest wall mass is seen. UPPER ABDOMEN: Unremarkable. OSSEOUS STRUCTURES: There are degenerative changes of the spine. CT/CT chest wo con IMPRESSION: Stable pulmonary nodules, largest measuring 9 mm in the right middle lobe adjacent to the major fissure.
== END 2020-11-11 12:57 | disposition home or self-care (01) ==
LOC: HO.CT 12:56
PROVIDERS: PCP Internal Medicine; Visit Provider Internal Medicine Pulmonary Disease
DX: R91.8 Other nonspecific abnormal finding of lung field (principal)
CPT/HCPCS: 71250

== ENCOUNTER → 2020-11-21 13:49 | Outpatient (BNVA) | payer MEDICARE, MEDICAID, SELFPAY | PROVIDERS: PCP Internal Medicine; Visit Provider Internal Medicine Pulmonary Disease | DX: J43.9 Emphysema, unspecified (principal); R91.8 Other nonspecific abnormal finding of lung field | CPT/HCPCS: 99212 ==

== ENCOUNTER 2020-12-18 10:22 | Outpatient (REF) | payer MEDICARE, MEDICAID, SELFPAY ==
[2020-12-18 10:34] LABS: MANUAL DIFF FLAG NO
[2020-12-18 11:03] LABS: Hematocrit 48.9 % (42-52); Hemoglobin 16.1 g/dl (14.0-18.0); Imm Gran Abs Auto 0.05 X10*3/uL (0.00-0.03); Imm Gran Pct Auto 0.6 % (0.0-0.4); Lymphocytes Absolute Auto 1.9 X10*3/uL (1.2-4.9); Lymphocytes Percent Auto 21.9 % (20-40); Mean Corpuscular HGB Conc 32.9 g/dl (31.0-36.0); Mean Corpuscular Hemoglobin 27.7 pg (27.0-33.0); Mean Corpuscular Volume 84.2 fL (80-98); Monocytes Absolute Auto 0.6 X10*3/uL (0.1-1.2); Monocytes Percent Auto 6.7 % (2-11); Neutrophils Absolute Auto 6.3 X10*3/uL (2.0-8.3); Neutrophils Percent Auto 70.8 % (45-73); Platelet Count 245 X10*3/uL (160-400); Red Blood Count 5.81 X10*6/uL (4.60-5.80); Red Cell Distribution Width 18.1 % (11.0-16.0); White Blood Count 8.8 X10*3/uL (4.8-10.8)
== END 2020-12-18 10:23 | disposition home or self-care (01) ==
LOC: HO.LABR 10:22
PROVIDERS: Visit Provider Clinical Nurse Specialist Psychiatric/Mental Health, Adult
DX: Z79.899 Other long term (current) drug therapy (principal)
CPT/HCPCS: 36415; 85025

== ENCOUNTER 2021-01-07 08:50 | Outpatient (REF) | payer MEDICARE, MEDICAID, SELFPAY ==
[2021-01-07 09:51] LABS: Lithium 0.69 mmol/L (0.60-1.20)
[2021-01-07 10:21] LABS: Thyroid Stimulating Hormone 1.42 uIU/mL (0.32-4.0)
[2021-01-07 10:44] LABS: Anion Gap 16 (12-20); Blood Urea Nitrogen 12 mg/dL (9-16); Calcium 10.7 mg/dL (8.4-10.2); Carbon Dioxide 20 mmol/L (22-29); Chloride 110 mmol/L (96-108); Estimated Glomerular Filt Rate > 60; Glucose Random 131 mg/dL (60-115); Sodium 140 mmol/L (135-145)
== END 2021-01-07 08:51 | disposition home or self-care (01) ==
LOC: HO.LAB 08:50
PROVIDERS: Visit Provider Clinical Nurse Specialist Psychiatric/Mental Health, Adult
DX: Z13.89 Encounter for screening for other disorder (principal)
CPT/HCPCS: 36415; 80048; 80178; 84443

== ENCOUNTER 2021-01-07 11:07 | Emergency (ER) | payer MEDICARE, MEDICAID, SELFPAY ==
[2021-01-07 12:06] VITALS: BP 150/95; PULSE 102; RESP 16; TEMP 36.7; O2SAT 100; BMI 35.4
--- NOTE | 2021-01-07 12:14 | ECG_ITS ---
Test Reason : elevated potasium Blood Pressure : / mmHG Vent. Rate : 095 BPM Atrial Rate : 095 BPM P-R Int : 152 ms QRS Dur : 088 ms QT Int : 328 ms P-R-T Axes : 054 051 002 degrees QTc Int : 412 ms Normal sinus rhythm Normal ECG When compared with ECG of 18-APR-2019 07:11, No significant change was found Referred By: Generic ED Physician Electronically Signed By:YIFAN DORSEY MD
[2021-01-07 12:38] LABS: MANUAL DIFF FLAG NO
[2021-01-07 12:43] LABS: Basophils Percent Auto 0.1 % (0-2); Hematocrit 49.1 % (42.0-52.0); Hemoglobin 16.2 g/dl (14.0-18.0); Imm Gran Abs Auto 0.06 X10*3/uL (0.00-0.03); Imm Gran Pct Auto 0.6 % (0.0-0.4); Lymphocytes Absolute Auto 2.4 X10*3/uL (1.2-4.9); Lymphocytes Percent Auto 24.9 % (20-40); Mean Corpuscular Hemoglobin 28.4 pg (27.0-33.0); Mean Platelet Volume 9.9 fL (9.4-12.4); Monocytes Absolute Auto 0.8 X10*3/uL (0.1-1.2); Monocytes Percent Auto 7.9 % (2-11); Neutrophils Absolute Auto 6.4 x10*3/uL (2.0-8.3); Neutrophils Percent Auto 66.5 % (45-73); Platelet Count 248 X10*3/uL (160-400); Red Blood Count 5.71 X10*6/uL (4.60-5.80); Red Cell Distribution Width 16.9 % (11.0-16.0); White Blood Count 9.6 X10*3/uL (4.8-10.8)
[2021-01-07 13:14] LABS: Anion Gap 14 (12-20); Blood Urea Nitrogen 11 mg/dL (9-16); Calcium 10.1 mg/dL (8.4-10.2); Carbon Dioxide 18 mmol/L (22-29); Chloride 111 mmol/L (96-108); Creatinine Clr Calc Pharmacy 139.5; Estimated Glomerular Filt Rate > 60; Glucose Random 92 mg/dL (60-115); Sodium 138 mmol/L (135-145)
[2021-01-07 14:40] VITALS: BP 158/98; PULSE 80; TEMP 36.8; O2SAT 99
--- NOTE | 2021-01-07 15:45 | ED.GENADULT ---
HPI - General Adult General Chief complaint: Recheck/Abnormal Lab/Rx Stated complaint: elevated potassium Time Seen by Provider: 01/07/21 12:23 Source: patient Mode of arrival: ambulatory Limitations: no limitations History of Present Illness HPI narrative: Patient comes to emergency room because he was told that his potassium is high. Patient had lab drawn today. Patient states that he is asymptomatic. Related Data Home Medications Medication Instructions Recorded Confirmed COVID-19 vacc,mRNA(Simperium)(PF) 30 0.3 ml IM DIRECTED 04/03/20 07/14/20 mcg/0.3 mL IM susp blood sugar diagnostic #10 ea 04/03/20 07/14/20 clozapine 200 mg tablet 200 mg PO BEDTIME 04/03/20 07/14/20 haloperidol 5 mg tablet 5 mg PO BID 04/03/20 07/14/20 hydroxyzine HCl 25 mg tablet mg PO 04/03/20 07/14/20 lancets 30 gauge #100 ea 04/03/20 07/14/20 lithium carbonate 300 mg capsule 600 mg PO BID cap 04/03/20 07/14/20 lorazepam 1 mg tablet 1 mg PO BID 04/03/20 07/14/20 trazodone 50 mg tablet 25 mg PO BEDTIME tab 04/03/20 07/14/20 Previous Rx's Medication Instructions Recorded clotrimazole 1 % topical cream 1 appl TOPICAL BID 14 Days #45 g 04/03/20 docusate sodium 100 mg capsule 100 mg PO BID PRN #60 cap 05/15/20 ferrous fumarate 324 mg (106 mg 324 mg PO DAILY #30 tab 07/10/20 iron) tablet omeprazole 40 mg capsule,delayed 40 mg PO DAILY #30 cap 09/15/20 release COMFRT TOUCH PAD ALC PREP #100 ea 10/01/20 gemfibrozil 600 mg tablet 600 mg PO BID #60 tab 10/07/20 losartan 25 mg tablet 25 mg PO DAILY #30 tab 10/07/20 omega-3 acid ethyl esters 1 gram 2 cap PO BID 30 Days #120 cap 10/16/20 capsule (Lovaza) insulin lispro protamine-lispro 30 unit (0.3 mL) SUBCUT BID #20 ml 10/21/20 100 unit/mL (75-25) subcutaneous susp (Humalog Mix 75-25(U-100)Insuln) empagliflozin 10 mg tablet 10 mg PO DAILY #28 tab 10/30/20 (Jardiance) metformin 1,000 mg tablet 1,000 mg PO BID #56 tab 11/05/20 albuterol sulfate 90 mcg/actuation 2 puff INHALATION Q4-6H PRN 30 11/21/20 aerosol inhaler Days #1 ea insulin syringe-needle U-100 0.5 #100 ea 12/26/20 mL 31 gauge x 5/16 acetaminophen 500 mg tablet 500 mg PO Q12H PRN #30 tab 01/07/21 Allergies Allergy/AdvReac Type Severity Reaction Status Date / Time No Known Allergies Allergy Verified 11/21/20 13:53 Review of Systems Review of Systems: Constitutional : No Weight loss, No Fever, No Chills, No Night Sweats, No Fatigue, No Malaise ENT/Mouth : No Hearing loss, No Ear Pain, No Nasal Congestion, No Sinus Pain, No Hoarseness, No sore throat, No Rhinorrhea, No Swallowing Difficulty Eyes: No Eye Pain, No Swelling, No Redness, No Foreign Body, No Discharge, No Vision Changes Cardiovascular : No Chest Pain, No SOB, No Dyspnea on Exertion, No Orthopnea, No Edema, No Palpitations Respiratory : No Cough, No Sputum, No Wheezing, No Smoke Exposure, No Dyspnea Gastrointestinal : No Nausea, No Vomiting, No Diarrhea, No Constipation, No abdominal Pain, No Hematochezia, No Melena Genitourinary : no irregular bleeding, No Dysuria, No Urinary Frequency, No Hematuria, No Urinary Incontinence, No Urgency, No Flank Pain, No Urinary Flow Changes, No Hesitancy Musculoskeletal : No joint pain, No Myalgias, No Joint Swelling Skin : No Skin Lesions, No rash Neuro : No Weakness, No Numbness, No Paresthesias, No Loss of Consciousness, No Dizziness, No Headache Psych : No Anxiety/Panic, No Depression, No SI/HI/AH/VH, No Social Issues, Heme/Lymph: No Bruising, No Bleeding,No Lymphadenopathy Endocrine : No Polyuria, No Polydipsia, No Temperature Intolerance [facility] Past Medical History Medical History Essential hypertension Mixed dyslipidemia Obesity (BMI 30-39.9) Restrictive airway disease Schizoaffective disorder Smoker unmotivated to quit Solitary pulmonary nodule on lung CT Type 2 diabetes mellitus with other diabetic kidney complication Surgical History No pertinent past surgical history Family History Family History Father Unknown family medical history Mother Unknown family medical history Brother No problems noted. Sister No problems noted. Social History Social History Housing: Other Housing Other:: senior living Alcohol intake: never Patient Tobacco Use Status: Current everyday Tobacco user Cigarette Packs Per Day: 2 e-Cigarette/Vaping Use: Never Used Advance Directives: No Advance Directives Information Provided: Yes service: No Current occupational status: disabled Physical Exam Vital Signs: Vital Signs: Last Vital Signs Temp 98.3 F 01/07/21 14:40 Pulse 80 01/07/21 14:40 Resp 16 01/07/21 12:06 BP 158/98 H 01/07/21 14:40 Pulse Ox 99 01/07/21 14:40 Body Mass Index 35.4 Const: Other: Appearance: Alert. Oriented X3. No acute distress. Eyes: Pupils equal, round and reactive to light. ENT: Pharynx normal. Neck: Normal inspection. Neck supple. No lymph nodes noted. No crepitus CVS: Normal heart rate and rhythm. Pulses normal. Normal S1 and S2 Respiratory: No respiratory distress. Breath sounds normal. No Wheezing. No rales Abdomen: Soft and nontender. No rigidity. No distention. good BS x4 Skin: Skin warm and dry. Normal skin color. Normal skin turgor. Extremities: No lower extremity edema. No Lacerations. No Rash Neuro: Oriented X 3. No motor deficit. No sensory deficit. Moving all extermities. No slurred speech. Course Course Course Narrative: Patient's labs were redrawn, potassium is normal. EKG does not show peaked T-waves. Patient is asymptomatic. Medical Decision Making Lab Data Result diagrams: 01/07/21 12:33 01/07/21 12:33 Labs: Lab Results 01/07/21 01/07/21 Range/Units 12:33 12:33 WBC 9.6 (4.8-10.8) X10*3/uL RBC 5.71 (4.60-5.80) X10*6/uL Hgb 16.2 (14.0-18.0) g/dl Hct 49.1 (42.0-52.0) % MCV 86.0 (80.0-98.0) fL MCH 28.4 (27.0-33.0) pg MCHC 33.0 (31.0-36.0) g/dl RDW 16.9 H (11.0-16.0) % Plt Count 248 (160-400) X10*3/uL MPV 9.9 (9.4-12.4) fL Immature Gran % (Auto) 0.6 H (0.0-0.4) % Neut % (Auto) 66.5 (45-73) % Lymph % (Auto) 24.9 (20-40) % [place] % (Auto) 7.9 (2-11) % Eos % (Auto) 0.0 (0-4) % Baso % (Auto) 0.1 (0-2) % Lymph # (Auto) 2.4 (1.2-4.9) X10*3/uL [place] # (Auto) 0.8 (0.1-1.2) X10*3/uL Eos # (Auto) 0.0 (0.0-0.4) X10*3/uL Baso # (Auto) 0.0 (0.0-0.2) X10*3/uL Abs Immat Gran (auto) 0.06 H (0.00-0.03) X10*3/uL Absolute Neuts (auto) 6.4 (2.0-8.3) x10*3/uL Absolute Nucleated RBC 0.000 (0.0-0.012) X10*3/uL Nucleated RBC % (auto) 0.0 (0.0-0.2) /100WBC Sodium 138 (135-145) mmol/L Potassium 5.0 (3.3-5.1) mmol/L Chloride 111 H (96-108) mmol/L Carbon Dioxide 18 L (22-29) mmol/L Anion Gap 14 (12-20) BUN 11 (9-16) mg/dL Creatinine 0.82 (0.5-1.4) mg/dL Estim Creat Clear Calc 139.5 Estimated GFR > 60 Random Glucose 92 (60-115) mg/dL Calcium 10.1 (8.4-10.2) mg/dL ECG Data Attestation: I personally reviewed and interpreted this ECG as follows: (Sinus rhythm, 195, no ST segment depression or elevation, nonspecific T-wave inversion in lead 3, no peaked T-waves, QTC 412) Discharge Plan Discharge Clinical Impression: Normal exam Patient Disposition: Home, Self-Care Additional Instructions: Normal exam Prescriptions: No Action docusate sodium 100 mg capsule 100 mg PO BID PRN (Reason: constipation) Qty: 60 RF: 0 omeprazole 40 mg capsule,delayed release(DR/EC) 40 mg PO DAILY Qty: 30 RF: 5 (DME) COMFRT TOUCH PAD ALC PREP See Rx Instructions .Route .MEDSUPPLY Qty: 100 RF: 3 gemfibrozil 600 mg tablet 600 mg PO BID Qty: 60 RF: 5 losartan 25 mg tablet 25 mg PO DAILY Qty: 30 RF: 5 Humalog Mix 75-25(U-100)Insuln 100 unit/mL (75-25) suspension 30 unit subcut BID Qty: 20 RF: 4 Jardiance 10 mg tablet 10 mg PO DAILY Qty: 28 RF: 6 metformin 1,000 mg tablet 1,000 mg PO BID Qty: 56 RF: 5 (DME) insulin syringe-needle U-100 0.5 mL 31 gauge x 5/16 syringe See Rx Instructions ea .ROUTE DIRECTED Qty: 100 RF: 3 acetaminophen 500 mg tablet 500 mg PO Q12H PRN (Reason: for pain) Qty: 30 RF: 0 ferrous fumarate 324 mg (106 mg iron) tablet 324 mg PO DAILY Qty: 30 RF: 5 Pfizer COVID-19 Vaccine (EUA) 30 mcg/0.3 mL suspension for reconstitution 0.3 ml IM DIRECTED RF: 0 lorazepam 1 mg tablet 1 mg PO BID RF: 0 lithium carbonate 300 mg capsule 600 mg PO BID RF: 0 clozapine 200 mg tablet 200 mg PO BEDTIME RF: 0 haloperidol 5 mg tablet 5 mg PO BID RF: 0 hydroxyzine HCl 25 mg tablet PO RF: 0 trazodone 50 mg tablet 25 mg PO BEDTIME RF: 0 (DME) lancets 30 gauge misc See Rx Instructions ea Not Applicable BID Qty: 100 RF: 0 (DME) Easy Talk Glucose Test Strip See Rx Instructions ea Not Applicable BID Qty: 10 RF: 0 clotrimazole 1 % cream 1 appl topical BID 14 Days Qty: 45 RF: 0 omega-3 acid ethyl esters [Lovaza] 1 gram capsule 2 cap PO BID 30 Days Qty: 120 RF: 5 albuterol sulfate 90 mcg/actuation HFA aerosol inhaler 2 puff inhalation Q4-6H PRN (Reason: shortness of breath or wheezing) 30 Days Qty: 1 RF: 2
[2021-01-07 15:49] VITALS: BP 135/82; PULSE 94; RESP 20; TEMP 36.9; O2SAT 97
== END 2021-01-07 16:10 | disposition home or self-care (01) ==
PROVIDERS: Emergency Provider Emergency Medicine; PCP Internal Medicine
DX: Z03.89 Encounter for observation for other suspected diseases and conditions ruled out (principal); I10 Essential (primary) hypertension; E11.9 Type 2 diabetes mellitus without complications; E78.2 Mixed hyperlipidemia; F17.200 Nicotine dependence, unspecified, uncomplicated
CPT/HCPCS: 36415; 80048; 80178; 84443; 85025; 93005; 99283; 99284

== ENCOUNTER 2021-01-14 09:07 | Outpatient (REF) | payer MEDICARE, MEDICAID, SELFPAY ==
[2021-01-14 11:48] LABS: MANUAL DIFF FLAG NO
[2021-01-14 11:51] LABS: Eosinophils Percent Auto 0.2 % (0-4); Hematocrit 49.1 % (42.0-52.0); Hemoglobin 16.2 g/dl (14.0-18.0); Imm Gran Abs Auto 0.04 X10*3/uL (0.00-0.03); Imm Gran Pct Auto 0.5 % (0.0-0.4); Lymphocytes Absolute Auto 2.1 X10*3/uL (1.2-4.9); Lymphocytes Percent Auto 23.7 % (20-40); Mean Corpuscular Hemoglobin 28.3 pg (27.0-33.0); Mean Corpuscular Volume 85.7 fL (80.0-98.0); Mean Platelet Volume 10.6 fL (9.4-12.4); Monocytes Absolute Auto 0.6 X10*3/uL (0.1-1.2); Monocytes Percent Auto 6.9 % (2-11); Neutrophils Absolute Auto 5.9 x10*3/uL (2.0-8.3); Neutrophils Percent Auto 68.7 % (45-73); Platelet Count 283 X10*3/uL (160-400); Red Blood Count 5.73 X10*6/uL (4.60-5.80); Red Cell Distribution Width 16.4 % (11.0-16.0); White Blood Count 8.6 X10*3/uL (4.8-10.8)
[2021-01-14 12:09] LABS: Estimated Average Glucose 120 mg/dL; Hemoglobin A1c % 5.8 %
[2021-01-14 12:17] LABS: Alanine Aminotransferase 17 U/L (0-40); Anion Gap 13 (12-20); Aspartate Amino Transferase 13 U/L (5-37); Blood Urea Nitrogen 14 mg/dL (9-16); Calcium 10.3 mg/dL (8.4-10.2); Carbon Dioxide 21 mmol/L (22-29); Chloride 107 mmol/L (96-108); Cholesterol 197 mg/dL; Estimated Glomerular Filt Rate > 60; Glucose Fasting 99 mg/dL (60-99); HDL Cholesterol 30 mg/dL; Iron 66 mcg/dL (45-160); Percent Iron Saturation 18 % (15-50); Potassium 4.7 mmol/L (3.3-5.1); Sodium 136 mmol/L (135-145); Total Iron Binding Capacity 364 mcg/dL (228-428); Triglycerides 417 mg/dL; Unsaturated Iron Binding 298 ug/dL
== END 2021-01-14 09:08 | disposition home or self-care (01) ==
LOC: HO.HMGCLR 09:07
PROVIDERS: PCP Internal Medicine; Visit Provider Clinical Nurse Specialist Psychiatric/Mental Health, Adult
DX: E11.29 Type 2 diabetes mellitus with other diabetic kidney complication (principal); E78.2 Mixed hyperlipidemia; I10 Essential (primary) hypertension; E66.9 Obesity, unspecified; F17.200 Nicotine dependence, unspecified, uncomplicated; Z79.899 Other long term (current) drug therapy
CPT/HCPCS: 36415; 80048; 80061; 83036; 83540; 84450; 84460; 85025

== ENCOUNTER 2021-02-11 10:13 | Outpatient (REF) | payer MEDICARE, MEDICAID, SELFPAY ==
[2021-02-11 10:26] LABS: MANUAL DIFF FLAG NO
[2021-02-11 10:38] LABS: Basophils Percent Auto 0.1 % (0-2); Eosinophils Percent Auto 0.2 % (0-4); Hematocrit 48.4 % (42.0-52.0); Hemoglobin 16.1 g/dl (14.0-18.0); Imm Gran Abs Auto 0.04 X10*3/uL (0.00-0.03); Imm Gran Pct Auto 0.4 % (0.0-0.4); Lymphocytes Absolute Auto 2.3 X10*3/uL (1.2-4.9); Lymphocytes Percent Auto 25.3 % (20-40); Mean Corpuscular HGB Conc 33.3 g/dl (31.0-36.0); Mean Corpuscular Hemoglobin 28.7 pg (27.0-33.0); Mean Corpuscular Volume 86.3 fL (80.0-98.0); Mean Platelet Volume 10.2 fL (9.4-12.4); Monocytes Absolute Auto 0.7 X10*3/uL (0.1-1.2); Monocytes Percent Auto 7.7 % (2-11); Neutrophils Percent Auto 66.3 % (45-73); Platelet Count 255 X10*3/uL (160-400); Red Blood Count 5.61 X10*6/uL (4.60-5.80); Red Cell Distribution Width 15.3 % (11.0-16.0); White Blood Count 9.1 X10*3/uL (4.8-10.8)
== END 2021-02-11 10:14 | disposition home or self-care (01) ==
LOC: HO.LABR 10:13
PROVIDERS: PCP Internal Medicine; Visit Provider Clinical Nurse Specialist Psychiatric/Mental Health, Adult
DX: Z79.899 Other long term (current) drug therapy (principal)
CPT/HCPCS: 36415; 85025

== ENCOUNTER 2021-03-11 13:10 | Outpatient (REF) | payer MEDICARE, MEDICAID, SELFPAY ==
[2021-03-11 13:22] LABS: MANUAL DIFF FLAG NO
[2021-03-11 13:39] LABS: Eosinophils Percent Auto 0.3 % (0-4); Hematocrit 50.1 % (42.0-52.0); Hemoglobin 16.9 g/dl (14.0-18.0); Imm Gran Abs Auto 0.04 X10*3/uL (0.00-0.03); Imm Gran Pct Auto 0.4 % (0.0-0.4); Lymphocytes Absolute Auto 2.8 X10*3/uL (1.2-4.9); Lymphocytes Percent Auto 26.6 % (20-40); Mean Corpuscular HGB Conc 33.7 g/dl (31.0-36.0); Mean Corpuscular Hemoglobin 28.9 pg (27.0-33.0); Mean Corpuscular Volume 85.6 fL (80.0-98.0); Mean Platelet Volume 10.6 fL (9.4-12.4); Monocytes Absolute Auto 0.7 X10*3/uL (0.1-1.2); Monocytes Percent Auto 6.9 % (2-11); Neutrophils Percent Auto 65.8 % (45-73); Platelet Count 268 X10*3/uL (160-400); Red Blood Count 5.85 X10*6/uL (4.60-5.80); Red Cell Distribution Width 14.8 % (11.0-16.0); White Blood Count 10.6 X10*3/uL (4.8-10.8)
== END 2021-03-11 13:11 | disposition home or self-care (01) ==
LOC: HO.LABR 13:10
PROVIDERS: PCP Internal Medicine; Visit Provider Clinical Nurse Specialist Psychiatric/Mental Health, Adult
DX: Z79.899 Other long term (current) drug therapy (principal)
CPT/HCPCS: 36415; 85025

== ENCOUNTER 2021-04-15 10:38 | Outpatient (REF) | payer MEDICARE, MEDICAID, SELFPAY ==
[2021-04-15 10:55] LABS: MANUAL DIFF FLAG NO
[2021-04-15 11:25] LABS: Basophils Percent Auto 0.1 % (0-2); Hematocrit 49.2 % (42.0-52.0); Hemoglobin 16.5 g/dl (14.0-18.0); Imm Gran Abs Auto 0.04 X10*3/uL (0.00-0.03); Imm Gran Pct Auto 0.4 % (0.0-0.4); Lymphocytes Absolute Auto 2.1 X10*3/uL (1.2-4.9); Lymphocytes Percent Auto 21.2 % (20-40); Mean Corpuscular HGB Conc 33.5 g/dl (31.0-36.0); Mean Corpuscular Hemoglobin 28.9 pg (27.0-33.0); Mean Corpuscular Volume 86.2 fL (80.0-98.0); Mean Platelet Volume 10.4 fL (9.4-12.4); Monocytes Absolute Auto 0.7 X10*3/uL (0.1-1.2); Monocytes Percent Auto 7.1 % (2-11); Neutrophils Absolute Auto 7.1 x10*3/uL (2.0-8.3); Neutrophils Percent Auto 71.2 % (45-73); Platelet Count 249 X10*3/uL (160-400); Red Blood Count 5.71 X10*6/uL (4.60-5.80); White Blood Count 9.9 X10*3/uL (4.8-10.8)
== END 2021-04-15 10:39 | disposition home or self-care (01) ==
LOC: HO.LABR 10:38
PROVIDERS: PCP Internal Medicine; Visit Provider Clinical Nurse Specialist Psychiatric/Mental Health, Adult
DX: Z79.899 Other long term (current) drug therapy (principal)
CPT/HCPCS: 36415; 85025

== ENCOUNTER 2021-05-13 12:43 | Outpatient (REF) | payer MEDICARE, MEDICAID, SELFPAY ==
[2021-05-13 13:03] LABS: MANUAL DIFF FLAG NO
[2021-05-13 13:30] LABS: Basophils Percent Auto 0.1 % (0-2); Eosinophils Percent Auto 0.1 % (0-4); Hematocrit 46.3 % (42.0-52.0); Hemoglobin 15.7 g/dl (14.0-18.0); Imm Gran Abs Auto 0.05 X10*3/uL (0.00-0.03); Imm Gran Pct Auto 0.6 % (0.0-0.4); Lymphocytes Absolute Auto 2.4 X10*3/uL (1.2-4.9); Lymphocytes Percent Auto 27.5 % (20-40); Mean Corpuscular HGB Conc 33.9 g/dl (31.0-36.0); Mean Corpuscular Hemoglobin 29.5 pg (27.0-33.0); Mean Corpuscular Volume 86.9 fL (80.0-98.0); Mean Platelet Volume 10.6 fL (9.4-12.4); Monocytes Absolute Auto 0.6 X10*3/uL (0.1-1.2); Monocytes Percent Auto 7.5 % (2-11); Neutrophils Absolute Auto 5.5 x10*3/uL (2.0-8.3); Neutrophils Percent Auto 64.2 % (45-73); Platelet Count 246 X10*3/uL (160-400); Red Blood Count 5.33 X10*6/uL (4.60-5.80); White Blood Count 8.5 X10*3/uL (4.8-10.8)
== END 2021-05-13 12:44 | disposition home or self-care (01) ==
LOC: HO.LABR 12:43
PROVIDERS: PCP Internal Medicine; Visit Provider Clinical Nurse Specialist Psychiatric/Mental Health, Adult
DX: Z79.899 Other long term (current) drug therapy (principal)
CPT/HCPCS: 36415; 85025

== ENCOUNTER 2021-05-19 09:34 | Outpatient (REF) | payer MEDICARE, MEDICAID, SELFPAY ==
[2021-05-19 12:03] LABS: Alanine Aminotransferase 19 U/L (0-40); Anion Gap 12 (12-20); Aspartate Amino Transferase 13 U/L (5-37); Blood Urea Nitrogen 16 mg/dL (9-16); Calcium 10.1 mg/dL (8.4-10.2); Carbon Dioxide 21 mmol/L (22-29); Chloride 107 mmol/L (96-108); Cholesterol 192 mg/dL; Estimated Glomerular Filt Rate > 60; Glucose Fasting 157 mg/dL (60-99); HDL Cholesterol 27 mg/dL; LDL Cholesterol Calculated 87 mg/dl; Sodium 135 mmol/L (135-145); Triglycerides 390 mg/dL
[2021-05-19 12:21] LABS: Estimated Average Glucose 111 mg/dL; Hemoglobin A1c % 5.5 %
== END 2021-05-19 09:35 | disposition home or self-care (01) ==
LOC: HO.HMGCLDS 09:34
PROVIDERS: PCP Internal Medicine; Visit Provider Internal Medicine
DX: E11.29 Type 2 diabetes mellitus with other diabetic kidney complication (principal); E66.9 Obesity, unspecified; E78.2 Mixed hyperlipidemia; I10 Essential (primary) hypertension
CPT/HCPCS: 36415; 80048; 80061; 82043; 82306; 83036; 84450; 84460

== ENCOUNTER 2021-06-09 15:47 | Outpatient (REF) | payer MEDICARE, MEDICAID, SELFPAY ==
[2021-06-09 15:56] LABS: MANUAL DIFF FLAG NO
[2021-06-09 16:52] LABS: Basophils Percent Auto 0.1 % (0-2); Hematocrit 46.7 % (42.0-52.0); Hemoglobin 15.8 g/dl (14.0-18.0); Imm Gran Abs Auto 0.06 X10*3/uL (0.00-0.03); Imm Gran Pct Auto 0.6 % (0.0-0.4); Lymphocytes Absolute Auto 2.8 X10*3/uL (1.2-4.9); Lymphocytes Percent Auto 26.6 % (20-40); Mean Corpuscular HGB Conc 33.8 g/dl (31.0-36.0); Mean Corpuscular Hemoglobin 28.7 pg (27.0-33.0); Mean Corpuscular Volume 84.8 fL (80.0-98.0); Mean Platelet Volume 10.2 fL (9.4-12.4); Monocytes Absolute Auto 0.7 X10*3/uL (0.1-1.2); Monocytes Percent Auto 6.5 % (2-11); Neut%MD 66.2 %; Neutrophils Absolute Auto 6.9 x10*3/uL (2.0-8.3); Neutrophils Percent Auto 66.2 % (45-73); Platelet Count 276 X10*3/uL (160-400); Red Blood Count 5.51 X10*6/uL (4.60-5.80); Red Cell Distribution Width 14.7 % (11.0-16.0); WBCANC 10.4 X10*3/uL; White Blood Count 10.4 X10*3/uL (4.8-10.8)
== END 2021-06-09 15:48 | disposition home or self-care (01) ==
LOC: HO.LABR 15:47
PROVIDERS: PCP Internal Medicine; Visit Provider Clinical Nurse Specialist Psychiatric/Mental Health, Adult
DX: Z79.899 Other long term (current) drug therapy (principal)
CPT/HCPCS: 36415; 85025

== ENCOUNTER 2021-07-03 14:51 | Outpatient (REF) | payer MEDICARE, MEDICAID, SELFPAY ==
[2021-07-03 16:34] LABS: Alanine Aminotransferase 12 U/L (0-40); Albumin Level 4.2 g/dL (3.5-5.0); Alkaline Phosphatase 121 U/L (39-117); Anion Gap 12 (12-20); Aspartate Amino Transferase 14 U/L (5-37); Bilirubin Total 0.3 mg/dL (0.0-1.0); Blood Urea Nitrogen 15 mg/dL (9-16); Calcium 10.4 mg/dL (8.4-10.2); Carbon Dioxide 21 mmol/L (22-29); Chloride 106 mmol/L (96-108); Estimated Glomerular Filt Rate > 60; Glucose Random 118 mg/dL (60-115); Potassium 4.9 mmol/L (3.3-5.1); Sodium 134 mmol/L (135-145); Total Protein 7.4 g/dL (6.5-8.0)
[2021-07-03 16:40] LABS: Lithium 1.03 mmol/L (0.60-1.20)
[2021-07-03 16:55] LABS: Thyroid Stimulating Hormone 2.54 uIU/mL (0.32-4.0)
== END 2021-07-03 14:52 | disposition home or self-care (01) ==
LOC: HO.HMGCLDS 14:51
PROVIDERS: PCP Internal Medicine; Visit Provider Clinical Nurse Specialist Psychiatric/Mental Health, Adult
DX: Z51.81 Encounter for therapeutic drug level monitoring (principal); Z79.899 Other long term (current) drug therapy
CPT/HCPCS: 36415; 80053; 80178; 84443

== ENCOUNTER 2021-07-08 14:20 | Outpatient (REF) | payer MEDICARE, MEDICAID, SELFPAY ==
[2021-07-08 16:18] LABS: MANUAL DIFF FLAG NO
[2021-07-08 16:23] LABS: Basophils Percent Auto 0.1 % (0-2); Eosinophils Percent Auto 0.2 % (0-4); Hemoglobin 16.2 g/dl (14.0-18.0); Imm Gran Abs Auto 0.05 X10*3/uL (0.00-0.03); Imm Gran Pct Auto 0.5 % (0.0-0.4); Lymphocytes Absolute Auto 2.7 X10*3/uL (1.2-4.9); Lymphocytes Percent Auto 26.3 % (20-40); Mean Corpuscular HGB Conc 33.8 g/dl (31.0-36.0); Mean Corpuscular Hemoglobin 28.6 pg (27.0-33.0); Mean Corpuscular Volume 84.7 fL (80.0-98.0); Mean Platelet Volume 10.7 fL (9.4-12.4); Monocytes Absolute Auto 0.7 X10*3/uL (0.1-1.2); Monocytes Percent Auto 6.5 % (2-11); Neutrophils Absolute Auto 6.9 x10*3/uL (2.0-8.3); Neutrophils Percent Auto 66.4 % (45-73); Platelet Count 278 X10*3/uL (160-400); Red Blood Count 5.67 X10*6/uL (4.60-5.80); Red Cell Distribution Width 14.6 % (11.0-16.0); White Blood Count 10.3 X10*3/uL (4.8-10.8)
[2021-07-08 16:33] LABS: Estimated Average Glucose 105 mg/dL; Hemoglobin A1c % 5.3 %
[2021-07-08 16:42] LABS: Alanine Aminotransferase 21 U/L (0-40); Anion Gap 15 (12-20); Aspartate Amino Transferase 19 U/L (5-37); Blood Urea Nitrogen 14 mg/dL (9-16); Calcium 11.3 mg/dL (8.4-10.2); Carbon Dioxide 24 mmol/L (22-29); Chloride 106 mmol/L (96-108); Cholesterol 239 mg/dL; Estimated Glomerular Filt Rate > 60; Glucose Fasting 138 mg/dL (60-99); HDL Cholesterol 28 mg/dL; Potassium 5.7 mmol/L (3.3-5.1); Sodium 139 mmol/L (135-145); Triglycerides 447 mg/dL
[2021-07-08 16:58] LABS: Vitamin D 25-OH Total 25.4 ng/mL (>30)
== END 2021-07-08 14:21 | disposition home or self-care (01) ==
LOC: HO.HMGCLR 14:20
PROVIDERS: PCP Internal Medicine; Visit Provider Clinical Nurse Specialist Psychiatric/Mental Health, Adult
DX: E11.29 Type 2 diabetes mellitus with other diabetic kidney complication (principal); E55.9 Vitamin D deficiency, unspecified; E66.9 Obesity, unspecified; E78.2 Mixed hyperlipidemia; I10 Essential (primary) hypertension; Z79.899 Other long term (current) drug therapy
CPT/HCPCS: 36415; 80048; 80061; 82306; 83036; 84450; 84460; 85025

== ENCOUNTER 2021-07-31 15:01 | Outpatient (REF) | payer MEDICARE, MEDICAID, SELFPAY ==
[2021-07-31 16:22] LABS: MANUAL DIFF FLAG NO
[2021-07-31 16:25] LABS: Basophils Percent Auto 0.2 % (0-2); Hematocrit 47.2 % (42.0-52.0); Hemoglobin 15.5 g/dl (14.0-18.0); Imm Gran Abs Auto 0.06 X10*3/uL (0.00-0.03); Imm Gran Pct Auto 0.6 % (0.0-0.4); Lymphocytes Absolute Auto 2.6 X10*3/uL (1.2-4.9); Lymphocytes Percent Auto 27.3 % (20-40); Mean Corpuscular HGB Conc 32.8 g/dl (31.0-36.0); Mean Corpuscular Volume 85.4 fL (80.0-98.0); Monocytes Absolute Auto 0.6 X10*3/uL (0.1-1.2); Monocytes Percent Auto 6.7 % (2-11); Neutrophils Absolute Auto 6.1 x10*3/uL (2.0-8.3); Neutrophils Percent Auto 65.2 % (45-73); Platelet Count 248 X10*3/uL (160-400); Red Blood Count 5.53 X10*6/uL (4.60-5.80); Red Cell Distribution Width 14.8 % (11.0-16.0); White Blood Count 9.4 X10*3/uL (4.8-10.8)
[2021-07-31 16:48] LABS: Potassium 5.1 mmol/L (3.3-5.1)
[2021-08-04 13:35] LABS: Calcium, Ionized 5.8 mg/dL (4.8-5.6)
== END 2021-07-31 15:02 | disposition home or self-care (01) ==
LOC: HO.HMGCLDS 15:01
PROVIDERS: PCP Internal Medicine; Visit Provider Clinical Nurse Specialist Psychiatric/Mental Health, Adult
DX: E83.52 Hypercalcemia (principal); E87.5 Hyperkalemia; Z79.899 Other long term (current) drug therapy
CPT/HCPCS: 36415; 82330; 84132; 85025

== ENCOUNTER 2021-08-04 12:39 | Outpatient (REF) | payer MEDICARE, MEDICAID, SELFPAY ==
[2021-08-04 12:51] LABS: MANUAL DIFF FLAG NO
[2021-08-04 13:52] LABS: Basophils Percent Auto 0.1 % (0-2); Hematocrit 47.2 % (42.0-52.0); Hemoglobin 15.6 g/dl (14.0-18.0); Imm Gran Abs Auto 0.04 X10*3/uL (0.00-0.03); Imm Gran Pct Auto 0.4 % (0.0-0.4); Lymphocytes Absolute Auto 2.5 X10*3/uL (1.2-4.9); Lymphocytes Percent Auto 25.5 % (20-40); Mean Corpuscular HGB Conc 33.1 g/dl (31.0-36.0); Mean Corpuscular Hemoglobin 28.2 pg (27.0-33.0); Mean Corpuscular Volume 85.2 fL (80.0-98.0); Mean Platelet Volume 10.5 fL (9.4-12.4); Monocytes Absolute Auto 0.7 X10*3/uL (0.1-1.2); Monocytes Percent Auto 7.4 % (2-11); Neutrophils Absolute Auto 6.5 x10*3/uL (2.0-8.3); Neutrophils Percent Auto 66.6 % (45-73); Platelet Count 255 X10*3/uL (160-400); Red Blood Count 5.54 X10*6/uL (4.60-5.80); Red Cell Distribution Width 14.6 % (11.0-16.0); White Blood Count 9.8 X10*3/uL (4.8-10.8)
== END 2021-08-04 12:40 | disposition home or self-care (01) ==
LOC: HO.LABR 12:39
PROVIDERS: PCP Internal Medicine; Visit Provider Clinical Nurse Specialist Psychiatric/Mental Health, Adult
DX: Z79.899 Other long term (current) drug therapy (principal)
CPT/HCPCS: 36415; 85025

== ENCOUNTER 2021-09-02 14:56 | Outpatient (REF) | payer MEDICARE, MEDICAID, SELFPAY ==
[2021-09-02 16:51] LABS: MANUAL DIFF FLAG NO
[2021-09-02 17:07] LABS: Basophils Percent Auto 0.1 % (0-2); Eosinophils Percent Auto 0.1 % (0-4); Hematocrit 46.8 % (42.0-52.0); Hemoglobin 15.6 g/dl (14.0-18.0); Imm Gran Abs Auto 0.04 X10*3/uL (0.00-0.03); Imm Gran Pct Auto 0.4 % (0.0-0.4); Lymphocytes Absolute Auto 2.5 X10*3/uL (1.2-4.9); Lymphocytes Percent Auto 26.5 % (20-40); Mean Corpuscular HGB Conc 33.3 g/dl (31.0-36.0); Mean Corpuscular Hemoglobin 28.3 pg (27.0-33.0); Mean Corpuscular Volume 84.9 fL (80.0-98.0); Mean Platelet Volume 10.6 fL (9.4-12.4); Monocytes Absolute Auto 0.7 X10*3/uL (0.1-1.2); Neutrophils Absolute Auto 6.3 x10*3/uL (2.0-8.3); Neutrophils Percent Auto 65.9 % (45-73); Platelet Count 259 X10*3/uL (160-400); Red Blood Count 5.51 X10*6/uL (4.60-5.80); Red Cell Distribution Width 15.1 % (11.0-16.0); White Blood Count 9.5 X10*3/uL (4.8-10.8)
== END 2021-09-02 14:57 | disposition home or self-care (01) ==
LOC: HO.LABR 14:56
PROVIDERS: PCP Internal Medicine; Visit Provider Clinical Nurse Specialist Psychiatric/Mental Health, Adult
DX: Z79.899 Other long term (current) drug therapy (principal)
CPT/HCPCS: 36415; 85025

== ENCOUNTER 2021-09-30 10:00 | Outpatient (REF) | payer MEDICARE, MEDICAID, SELFPAY ==
[2021-09-30 11:22] LABS: MANUAL DIFF FLAG NO
[2021-09-30 11:39] LABS: Basophils Percent Auto 0.1 % (0-2); Hemoglobin 16.3 g/dl (14.0-18.0); Imm Gran Abs Auto 0.07 X10*3/uL (0.00-0.03); Imm Gran Pct Auto 0.7 % (0.0-0.4); Lymphocytes Absolute Auto 2.1 X10*3/uL (1.2-4.9); Mean Corpuscular Hemoglobin 28.5 pg (27.0-33.0); Mean Corpuscular Volume 84.1 fL (80.0-98.0); Mean Platelet Volume 10.3 fL (9.4-12.4); Monocytes Absolute Auto 0.7 X10*3/uL (0.1-1.2); Monocytes Percent Auto 6.5 % (2-11); Neutrophils Absolute Auto 7.6 x10*3/uL (2.0-8.3); Neutrophils Percent Auto 72.7 % (45-73); Platelet Count 277 X10*3/uL (160-400); Red Blood Count 5.71 X10*6/uL (4.60-5.80); Red Cell Distribution Width 15.4 % (11.0-16.0); White Blood Count 10.4 X10*3/uL (4.8-10.8)
== END 2021-09-30 10:01 | disposition home or self-care (01) ==
LOC: HO.LABR 10:00
PROVIDERS: PCP Internal Medicine; Visit Provider Clinical Nurse Specialist Psychiatric/Mental Health, Adult
DX: Z79.899 Other long term (current) drug therapy (principal)
CPT/HCPCS: 36415; 85025

== ENCOUNTER 2021-10-30 13:28 | Outpatient (REF) | payer MEDICARE, MEDICAID, SELFPAY ==
[2021-10-30 13:43] LABS: MANUAL DIFF FLAG NO
[2021-10-30 14:13] LABS: Basophils Percent Auto 0.1 % (0-2); Eosinophils Percent Auto 0.1 % (0-4); Hematocrit 45.4 % (42.0-52.0); Hemoglobin 15.7 g/dl (14.0-18.0); Imm Gran Abs Auto 0.07 X10*3/uL (0.00-0.03); Imm Gran Pct Auto 0.7 % (0.0-0.4); Lymphocytes Absolute Auto 2.5 X10*3/uL (1.2-4.9); Mean Corpuscular HGB Conc 34.6 g/dl (31.0-36.0); Mean Corpuscular Hemoglobin 29.2 pg (27.0-33.0); Mean Corpuscular Volume 84.5 fL (80.0-98.0); Mean Platelet Volume 10.1 fL (9.4-12.4); Monocytes Absolute Auto 0.8 X10*3/uL (0.1-1.2); Monocytes Percent Auto 7.6 % (2-11); Neut%MD 67.5 %; Neutrophils Percent Auto 67.5 % (45-73); Platelet Count 270 X10*3/uL (160-400); Red Blood Count 5.37 X10*6/uL (4.60-5.80); Red Cell Distribution Width 15.7 % (11.0-16.0); WBCANC 10.3 X10*3/uL; White Blood Count 10.3 X10*3/uL (4.8-10.8)
== END 2021-10-30 13:29 | disposition home or self-care (01) ==
LOC: HO.LABR 13:28
PROVIDERS: PCP Internal Medicine; Visit Provider Clinical Nurse Specialist Psychiatric/Mental Health, Adult
DX: Z79.899 Other long term (current) drug therapy (principal)
CPT/HCPCS: 36415; 85025

== ENCOUNTER 2021-11-11 12:26 | Outpatient (REF) | payer MEDICARE, MEDICAID, SELFPAY ==
--- NOTE | ~2021-11-11 | CT_ITS ---
EXAMINATION: CT CHEST WITHOUT CONTRAST CLINICAL INFORMATION: Follow-up pulmonary nodules. COMPARISON: Prior chest CT examinations, most recently 11/11/2020. TECHNIQUE: Multidetector volumetric CT imaging of the chest was done. Axial MIP volume rendering provided. Sagittal and coronal reformatted images were obtained. This CT examination was performed using dose optimization techniques as appropriate, variously including the following: *Automated exposure control *Adjustment of mA and/or kV according to patient size (this includes techniques or standardized protocols for targeted exams where dose is matched to indication/reason for exam; i.e. extremities or head) *Use of iterative reconstruction technique DLP: 241 mGy-cm FINDINGS: CHANGE MANAGEMENT ADMINISTRATOR: The lungs are symmetrically well-expanded and grossly clear. There is mild elevation of the right hemidiaphragm. LUNGS: At the posterolateral right apex (7:135), a 4 mm noncalcified nodule is seen. Within the anterior segment of the right upper lobe (7:153, 154 and 159), 6 mm, 4 mm and 4 mm noncalcified nodules are seen. Abutting the right major fissure medially (7:75), a 4 mm benign fissural lymph node is seen. Abutting the accessory fissure (7:205), a 3 mm benign fissural lymph node is seen. Posteriorly within the right middle lobe, abutting the accessory fissure (7:299), a stable 9 x 4 mm noncalcified nodule is seen. There is a benign, calcified granuloma situated within the lateral basal segment of the left lower lobe (7:247). Within the apicoposterior segment of the left upper lobe laterally (7:195), a 2 mm noncalcified nodule is seen. These nodules are unchanged from 05/17/2020. There is no new mass, infiltrate or groundglass opacity. No generalized increase is seen in peripheral interlobular septal markings. There is a very mild bilateral mosaic attenuation pattern. There is a little if any small airway thickening. The central airways appear patent. MEDIASTINUM: The mediastinum is normal. PLEURA: There is no pleural effusion. No pleural mass or thickening. AXILLA: There are mildly enlarged bilateral axillary lymph nodes, the largest on the right showing a short axis diameter of 1.1 cm, and on the left 1.2 cm (3:11 and 14). UPPER ABDOMEN: Unremarkable. OSSEOUS STRUCTURES: There is multi-level moderate to marked thoracic degenerative disc disease and spondylosis. No acute or aggressive osseous abnormality is seen. CT/CT chest wo IV con IMPRESSION: 1. There is a continued stable appearance from 05/17/2020 of multiple bilateral pulmonary nodules, the largest within the right middle lobe measuring 9 mm. According to the UPDATED 2017 Fleischner Society recommendations, the advised follow-up imaging for multiple solid nodules, the largest measuring 6 mm or greater, is: LOW RISK PATIENT: CT at 3-6 months, then consider CT at 18-24 months. HIGH RISK PATIENT: CT at 3-6 months, then at 18-24 months. 2. No new nodule, mass, infiltrate or groundglass opacity is seen. 3. There is a very mild bilateral mosaic attenuation pattern, which can be obstructed with obstructive small airways disease. 4. No mediastinal or hilar lymphadenopathy or pleural effusion is seen. 5. Again, there are borderline enlarged, nonspecific bilateral axillary lymph nodes, which should be managed on a clinical basis. 6. No acute or aggressive osseous abnormality is seen. Fleischner guidelines were followed.
== END 2021-11-11 12:27 | disposition home or self-care (01) ==
LOC: HO.CT 12:26
PROVIDERS: Visit Provider Internal Medicine Pulmonary Disease
DX: R91.1 Solitary pulmonary nodule (principal)
CPT/HCPCS: 71250

== ENCOUNTER → 2021-11-13 13:54 | Outpatient (BNVA) | payer MEDICARE, MEDICAID, SELFPAY | PROVIDERS: PCP Internal Medicine; Visit Provider Internal Medicine Pulmonary Disease | DX: J43.9 Emphysema, unspecified (principal); R91.8 Other nonspecific abnormal finding of lung field; F17.210 Nicotine dependence, cigarettes, uncomplicated | CPT/HCPCS: 99212 ==

== ENCOUNTER 2021-11-25 09:56 | Outpatient (REF) | payer MEDICARE, MEDICAID, SELFPAY ==
[2021-11-25 11:23] LABS: MANUAL DIFF FLAG NO
[2021-11-25 11:31] LABS: Basophils Percent Auto 0.1 % (0-2); Hematocrit 45.5 % (42.0-52.0); Hemoglobin 15.2 g/dl (14.0-18.0); Imm Gran Abs Auto 0.04 X10*3/uL (0.00-0.03); Imm Gran Pct Auto 0.4 % (0.0-0.4); Lymphocytes Absolute Auto 1.9 X10*3/uL (1.2-4.9); Lymphocytes Percent Auto 21.2 % (20-40); Mean Corpuscular HGB Conc 33.4 g/dl (31.0-36.0); Mean Corpuscular Hemoglobin 28.5 pg (27.0-33.0); Mean Corpuscular Volume 85.4 fL (80.0-98.0); Mean Platelet Volume 10.2 fL (9.4-12.4); Monocytes Absolute Auto 0.6 X10*3/uL (0.1-1.2); Monocytes Percent Auto 7.1 % (2-11); Neutrophils Absolute Auto 6.4 x10*3/uL (2.0-8.3); Neutrophils Percent Auto 71.2 % (45-73); Platelet Count 280 X10*3/uL (160-400); Red Blood Count 5.33 X10*6/uL (4.60-5.80); Red Cell Distribution Width 15.3 % (11.0-16.0)
[2021-11-25 11:49] LABS: Alanine Aminotransferase 15 U/L (0-40); Anion Gap 14 (12-20); Aspartate Amino Transferase 14 U/L (5-37); Blood Urea Nitrogen 16 mg/dL (9-16); Carbon Dioxide 18 mmol/L (22-29); Chloride 109 mmol/L (96-108); Cholesterol 230 mg/dL; Estimated Glomerular Filt Rate > 60; Glucose Fasting 135 mg/dL (60-99); HDL Cholesterol 26 mg/dL; Potassium 5.1 mmol/L (3.3-5.1); Sodium 136 mmol/L (135-145); Triglycerides 488 mg/dL
[2021-11-25 12:06] LABS: Estimated Average Glucose 117 mg/dL; Hemoglobin A1c % 5.7 %
[2021-11-25 12:08] LABS: Vitamin D 25-OH Total 34.4 ng/mL (>30)
[2021-11-27 06:05] LABS: LDL Cholesterol Direct 114 mg/dL (<100)
[2021-11-27 12:32] LABS: Calcium, Ionized 5.3 mg/dL (4.8-5.6)
== END 2021-11-25 09:57 | disposition home or self-care (01) ==
LOC: HO.HMGCLDS 09:56
PROVIDERS: Absent Provider Clinical Nurse Specialist Psychiatric/Mental Health, Adult; PCP Internal Medicine; Visit Provider Internal Medicine
DX: E11.29 Type 2 diabetes mellitus with other diabetic kidney complication (principal); E66.9 Obesity, unspecified; E78.2 Mixed hyperlipidemia; E83.52 Hypercalcemia; I10 Essential (primary) hypertension; Z79.899 Other long term (current) drug therapy
CPT/HCPCS: 36415; 80048; 80061; 82306; 82330; 83036; 83721; 84450; 84460; 85025

== ENCOUNTER 2021-12-23 09:34 | Outpatient (REF) | payer MEDICARE, MEDICAID, SELFPAY ==
[2021-12-23 11:10] LABS: MANUAL DIFF FLAG NO
[2021-12-23 11:27] LABS: Basophils Percent Auto 0.2 % (0-2); Hematocrit 46.9 % (42.0-52.0); Hemoglobin 15.7 g/dl (14.0-18.0); Imm Gran Abs Auto 0.04 X10*3/uL (0.00-0.03); Imm Gran Pct Auto 0.4 % (0.0-0.4); Lymphocytes Absolute Auto 2.4 X10*3/uL (1.2-4.9); Lymphocytes Percent Auto 22.2 % (20-40); Mean Corpuscular HGB Conc 33.5 g/dl (31.0-36.0); Mean Corpuscular Hemoglobin 28.6 pg (27.0-33.0); Mean Corpuscular Volume 85.6 fL (80.0-98.0); Monocytes Absolute Auto 0.8 X10*3/uL (0.1-1.2); Monocytes Percent Auto 7.3 % (2-11); Neutrophils Absolute Auto 7.5 x10*3/uL (2.0-8.3); Neutrophils Percent Auto 69.9 % (45-73); Platelet Count 311 X10*3/uL (160-400); Red Blood Count 5.48 X10*6/uL (4.60-5.80); Red Cell Distribution Width 14.9 % (11.0-16.0); White Blood Count 10.7 X10*3/uL (4.8-10.8)
== END 2021-12-23 09:35 | disposition home or self-care (01) ==
LOC: HO.HMGCLR 09:34
PROVIDERS: PCP Internal Medicine; Visit Provider Clinical Nurse Specialist Psychiatric/Mental Health, Adult
DX: Z79.899 Other long term (current) drug therapy (principal)
CPT/HCPCS: 36415; 85025

== ENCOUNTER 2022-01-20 09:51 | Outpatient (REF) | payer MEDICARE, MEDICAID, SELFPAY ==
[2022-01-20 11:45] LABS: MANUAL DIFF FLAG NO
[2022-01-20 11:57] LABS: Basophils Percent Auto 0.1 % (0-2); Eosinophils Percent Auto 0.2 % (0-4); Hematocrit 46.1 % (42.0-52.0); Hemoglobin 15.4 g/dl (14.0-18.0); Imm Gran Abs Auto 0.04 X10*3/uL (0.00-0.03); Imm Gran Pct Auto 0.4 % (0.0-0.4); Lymphocytes Absolute Auto 2.3 X10*3/uL (1.2-4.9); Lymphocytes Percent Auto 22.2 % (20-40); Mean Corpuscular HGB Conc 33.4 g/dl (31.0-36.0); Mean Corpuscular Hemoglobin 28.4 pg (27.0-33.0); Mean Corpuscular Volume 85.1 fL (80.0-98.0); Mean Platelet Volume 10.6 fL (9.4-12.4); Monocytes Absolute Auto 0.7 X10*3/uL (0.1-1.2); Monocytes Percent Auto 6.5 % (2-11); Neutrophils Absolute Auto 7.3 x10*3/uL (2.0-8.3); Neutrophils Percent Auto 70.6 % (45-73); Platelet Count 278 X10*3/uL (160-400); Red Blood Count 5.42 X10*6/uL (4.60-5.80); Red Cell Distribution Width 14.9 % (11.0-16.0); White Blood Count 10.3 X10*3/uL (4.8-10.8)
[2022-01-20 12:40] LABS: Lithium 1.03 mmol/L (0.60-1.20)
[2022-01-20 13:20] LABS: Anion Gap 13 (12-20); Blood Urea Nitrogen 21 mg/dL (9-16); Calcium 10.7 mg/dL (8.4-10.2); Carbon Dioxide 21 mmol/L (22-29); Chloride 106 mmol/L (96-108); Estimated Glomerular Filt Rate > 60; Glucose Random 125 mg/dL (60-115); Potassium 5.1 mmol/L (3.3-5.1); Sodium 135 mmol/L (135-145); Thyroid Stimulating Hormone 1.99 uIU/mL (0.32-4.0)
== END 2022-01-20 09:52 | disposition home or self-care (01) ==
LOC: HO.HMGCLDS 09:51
PROVIDERS: PCP Internal Medicine; Visit Provider Clinical Nurse Specialist Psychiatric/Mental Health, Adult
DX: Z79.899 Other long term (current) drug therapy (principal)
CPT/HCPCS: 36415; 80048; 80178; 84443; 85025

== ENCOUNTER 2022-02-18 11:49 | Outpatient (REF) | payer MEDICARE, MEDICAID, SELFPAY ==
[2022-02-18 13:57] LABS: MANUAL DIFF FLAG NO
[2022-02-18 14:02] LABS: Basophils Percent Auto 0.1 % (0-2); Eosinophils Percent Auto 0.1 % (0-4); Hematocrit 43.5 % (42.0-52.0); Hemoglobin 14.7 g/dl (14.0-18.0); Imm Gran Abs Auto 0.04 X10*3/uL (0.00-0.03); Imm Gran Pct Auto 0.4 % (0.0-0.4); Lymphocytes Absolute Auto 2.4 X10*3/uL (1.2-4.9); Lymphocytes Percent Auto 23.1 % (20-40); Mean Corpuscular HGB Conc 33.8 g/dl (31.0-36.0); Mean Corpuscular Hemoglobin 28.4 pg (27.0-33.0); Mean Corpuscular Volume 84.1 fL (80.0-98.0); Mean Platelet Volume 10.1 fL (9.4-12.4); Monocytes Absolute Auto 0.7 X10*3/uL (0.1-1.2); Monocytes Percent Auto 6.3 % (2-11); Neutrophils Absolute Auto 7.4 x10*3/uL (2.0-8.3); Platelet Count 269 X10*3/uL (160-400); Red Blood Count 5.17 X10*6/uL (4.60-5.80); Red Cell Distribution Width 15.4 % (11.0-16.0); White Blood Count 10.6 X10*3/uL (4.8-10.8)
== END 2022-02-18 11:50 | disposition home or self-care (01) ==
LOC: HO.HMGCLR 11:49
PROVIDERS: PCP Internal Medicine; Visit Provider Clinical Nurse Specialist Psychiatric/Mental Health, Adult
DX: Z79.899 Other long term (current) drug therapy (principal)
CPT/HCPCS: 36415; 85025

== ENCOUNTER 2022-03-18 15:02 | Outpatient (REF) | payer MEDICARE, MEDICAID, SELFPAY ==
[2022-03-18 16:40] LABS: MANUAL DIFF FLAG NO
[2022-03-18 16:46] LABS: Basophils Percent Auto 0.3 % (0-2); Eosinophils Percent Auto 0.3 % (0-4); Hematocrit 45.2 % (42.0-52.0); Hemoglobin 15.3 g/dl (14.0-18.0); Imm Gran Abs Auto 0.09 X10*3/uL (0.00-0.03); Imm Gran Pct Auto 0.7 % (0.0-0.4); Lymphocytes Percent Auto 23.9 % (20-40); Mean Corpuscular HGB Conc 33.8 g/dl (31.0-36.0); Mean Corpuscular Volume 85.6 fL (80.0-98.0); Mean Platelet Volume 10.4 fL (9.4-12.4); Monocytes Absolute Auto 0.8 X10*3/uL (0.1-1.2); Monocytes Percent Auto 6.7 % (2-11); Neutrophils Absolute Auto 8.6 x10*3/uL (2.0-8.3); Neutrophils Percent Auto 68.1 % (45-73); Platelet Count 293 X10*3/uL (160-400); Red Blood Count 5.28 X10*6/uL (4.60-5.80); Red Cell Distribution Width 15.5 % (11.0-16.0); White Blood Count 12.6 X10*3/uL (4.8-10.8)
== END 2022-03-18 15:03 | disposition home or self-care (01) ==
LOC: HO.HMGCLDS 15:02
PROVIDERS: PCP Internal Medicine; Visit Provider Clinical Nurse Specialist Psychiatric/Mental Health, Adult
DX: Z79.899 Other long term (current) drug therapy (principal)
CPT/HCPCS: 36415; 85025

== ENCOUNTER 2022-04-15 12:33 | Outpatient (REF) | payer MEDICARE, MEDICAID, SELFPAY ==
[2022-04-15 14:03] LABS: MANUAL DIFF FLAG NO
[2022-04-15 14:14] LABS: Basophils Percent Auto 0.2 % (0-2); Hematocrit 48.9 % (42.0-52.0); Hemoglobin 16.1 g/dl (14.0-18.0); Imm Gran Abs Auto 0.06 X10*3/uL (0.00-0.03); Imm Gran Pct Auto 0.4 % (0.0-0.4); Lymphocytes Absolute Auto 2.8 X10*3/uL (1.2-4.9); Lymphocytes Percent Auto 21.3 % (20-40); Mean Corpuscular HGB Conc 32.9 g/dl (31.0-36.0); Mean Corpuscular Hemoglobin 28.7 pg (27.0-33.0); Mean Corpuscular Volume 87.2 fL (80.0-98.0); Mean Platelet Volume 10.3 fL (9.4-12.4); Monocytes Absolute Auto 0.9 X10*3/uL (0.1-1.2); Monocytes Percent Auto 6.4 % (2-11); Neutrophils Absolute Auto 9.6 x10*3/uL (2.0-8.3); Neutrophils Percent Auto 71.7 % (45-73); Platelet Count 327 X10*3/uL (160-400); Red Blood Count 5.61 X10*6/uL (4.60-5.80); Red Cell Distribution Width 14.9 % (11.0-16.0); White Blood Count 13.4 X10*3/uL (4.8-10.8)
== END 2022-04-15 12:34 | disposition home or self-care (01) ==
LOC: HO.HMGCLDS 12:33
PROVIDERS: Visit Provider Clinical Nurse Specialist Psychiatric/Mental Health, Adult
DX: Z79.899 Other long term (current) drug therapy (principal)
CPT/HCPCS: 36415; 85025

== ENCOUNTER 2022-04-29 08:59 | Outpatient (REF) | payer MEDICARE, MEDICAID, SELFPAY ==
[2022-04-29 11:01] LABS: MANUAL DIFF FLAG NO
[2022-04-29 11:22] LABS: Basophils Percent Auto 0.2 % (0-2); Eosinophils Percent Auto 0.3 % (0-4); Hematocrit 45.8 % (42.0-52.0); Imm Gran Abs Auto 0.04 X10*3/uL (0.00-0.03); Imm Gran Pct Auto 0.4 % (0.0-0.4); Lymphocytes Absolute Auto 2.3 X10*3/uL (1.2-4.9); Lymphocytes Percent Auto 21.5 % (20-40); Mean Corpuscular HGB Conc 32.8 g/dl (31.0-36.0); Mean Corpuscular Hemoglobin 28.1 pg (27.0-33.0); Mean Corpuscular Volume 85.9 fL (80.0-98.0); Mean Platelet Volume 9.8 fL (9.4-12.4); Monocytes Absolute Auto 0.7 X10*3/uL (0.1-1.2); Monocytes Percent Auto 6.6 % (2-11); Neutrophils Absolute Auto 7.5 x10*3/uL (2.0-8.3); Platelet Count 278 X10*3/uL (160-400); Red Blood Count 5.33 X10*6/uL (4.60-5.80); White Blood Count 10.5 X10*3/uL (4.8-10.8)
[2022-04-29 11:48] LABS: Estimated Average Glucose 111 mg/dL; Hemoglobin A1c % 5.5 %
[2022-04-29 12:27] LABS: Alanine Aminotransferase 21 U/L (0-40); Aspartate Amino Transferase 19 U/L (5-37); Cholesterol 192 mg/dL; HDL Cholesterol 29 mg/dL; LDL Cholesterol Calculated 96 mg/dl; Triglycerides 337 mg/dL
[2022-04-30 10:23] LABS: LDL Cholesterol Direct 108 mg/dL (<100)
== END 2022-04-29 09:00 | disposition home or self-care (01) ==
LOC: HO.HMGCLDS 08:59
PROVIDERS: Absent Provider Clinical Nurse Specialist Psychiatric/Mental Health, Adult; PCP Internal Medicine; Visit Provider Internal Medicine
DX: E78.2 Mixed hyperlipidemia (principal); E66.9 Obesity, unspecified; I10 Essential (primary) hypertension; E11.29 Type 2 diabetes mellitus with other diabetic kidney complication; Z79.899 Other long term (current) drug therapy
CPT/HCPCS: 36415; 80061; 83036; 83721; 84450; 84460; 85025

== ENCOUNTER 2022-05-14 13:40 | Outpatient (REF) | payer MEDICARE, MEDICAID, SELFPAY ==
[2022-05-14 16:38] LABS: MANUAL DIFF FLAG NO
[2022-05-14 16:41] LABS: Basophils Absolute Auto 0.1 X10*3/uL (0.0-0.2); Basophils Percent Auto 0.4 % (0-2); Eosinophils Absolute Auto 0.1 X10*3/uL (0.0-0.4); Eosinophils Percent Auto 0.8 % (0-4); Hematocrit 45.3 % (42.0-52.0); Hemoglobin 15.1 g/dl (14.0-18.0); Imm Gran Abs Auto 0.08 X10*3/uL (0.00-0.03); Imm Gran Pct Auto 0.6 % (0.0-0.4); Lymphocytes Absolute Auto 2.6 X10*3/uL (1.2-4.9); Lymphocytes Percent Auto 20.5 % (20-40); Mean Corpuscular HGB Conc 33.3 g/dl (31.0-36.0); Mean Corpuscular Hemoglobin 28.6 pg (27.0-33.0); Mean Corpuscular Volume 85.8 fL (80.0-98.0); Mean Platelet Volume 10.2 fL (9.4-12.4); Monocytes Absolute Auto 1.1 X10*3/uL (0.1-1.2); Monocytes Percent Auto 8.3 % (2-11); Neut%MD 69.4 %; Neutrophils Absolute Auto 8.8 x10*3/uL (2.0-8.3); Neutrophils Percent Auto 69.4 % (45-73); Platelet Count 302 X10*3/uL (160-400); Red Blood Count 5.28 X10*6/uL (4.60-5.80); Red Cell Distribution Width 14.8 % (11.0-16.0); WBCANC 12.7 X10*3/uL; White Blood Count 12.7 X10*3/uL (4.8-10.8)
== END 2022-05-14 13:41 | disposition home or self-care (01) ==
LOC: HO.HMGCLR 13:40
PROVIDERS: PCP Internal Medicine; Visit Provider Clinical Nurse Specialist Psychiatric/Mental Health, Adult
DX: Z79.899 Other long term (current) drug therapy (principal)
CPT/HCPCS: 36415; 85025

== ENCOUNTER 2022-06-09 12:45 | Outpatient (REF) | payer MEDICARE, MEDICAID, SELFPAY ==
[2022-06-09 13:51] LABS: MANUAL DIFF FLAG NO
[2022-06-09 14:07] LABS: Basophils Percent Auto 0.3 % (0-2); Eosinophils Percent Auto 0.1 % (0-4); Hematocrit 44.9 % (42.0-52.0); Hemoglobin 15.1 g/dl (14.0-18.0); Imm Gran Abs Auto 0.06 X10*3/uL (0.00-0.03); Imm Gran Pct Auto 0.5 % (0.0-0.4); Lymphocytes Absolute Auto 2.8 X10*3/uL (1.2-4.9); Lymphocytes Percent Auto 24.4 % (20-40); Mean Corpuscular HGB Conc 33.6 g/dl (31.0-36.0); Mean Corpuscular Hemoglobin 28.4 pg (27.0-33.0); Mean Corpuscular Volume 84.4 fL (80.0-98.0); Monocytes Absolute Auto 0.8 X10*3/uL (0.1-1.2); Monocytes Percent Auto 7.3 % (2-11); Neutrophils Absolute Auto 7.8 x10*3/uL (2.0-8.3); Neutrophils Percent Auto 67.4 % (45-73); Platelet Count 312 X10*3/uL (160-400); Red Blood Count 5.32 X10*6/uL (4.60-5.80); Red Cell Distribution Width 14.5 % (11.0-16.0); White Blood Count 11.6 X10*3/uL (4.8-10.8)
== END 2022-06-09 12:46 | disposition home or self-care (01) ==
LOC: HO.HMGCLR 12:45
PROVIDERS: PCP Internal Medicine; Visit Provider Clinical Nurse Specialist Psychiatric/Mental Health, Adult
DX: Z79.899 Other long term (current) drug therapy (principal)
CPT/HCPCS: 36415; 85025

== ENCOUNTER 2022-06-18 10:31 | Outpatient (REF) | payer MEDICARE, MEDICAID, SELFPAY ==
[2022-06-18 14:40] LABS: Anion Gap 12 (12-20); Blood Urea Nitrogen 27 mg/dL (9-16); Calcium 10.5 mg/dL (8.4-10.2); Carbon Dioxide 22 mmol/L (22-29); Chloride 108 mmol/L (96-108); Estimated Glomerular Filt Rate 38; Glucose Random 167 mg/dL (60-115); Potassium 5.6 mmol/L (3.3-5.1); Sodium 136 mmol/L (135-145)
[2022-06-18 14:59] LABS: Thyroid Stimulating Hormone 2.45 uIU/mL (0.32-4.0)
[2022-06-18 15:06] LABS: Lithium 1.08 mmol/L (0.60-1.20)
== END 2022-06-18 10:32 | disposition home or self-care (01) ==
LOC: HO.HMGCLR 10:31
PROVIDERS: PCP Internal Medicine; Visit Provider Clinical Nurse Specialist Psychiatric/Mental Health, Adult
DX: Z79.899 Other long term (current) drug therapy (principal)
CPT/HCPCS: 36415; 80048; 80178; 84443

== ENCOUNTER 2022-06-30 11:36 | Outpatient (REF) | payer MEDICARE, MEDICAID, SELFPAY ==
[2022-06-30 14:24] LABS: Potassium 5.3 mmol/L (3.3-5.1)
== END 2022-06-30 11:37 | disposition home or self-care (01) ==
LOC: HO.HMGCLDS 11:36
PROVIDERS: PCP Internal Medicine; Visit Provider Internal Medicine
DX: E87.5 Hyperkalemia (principal)
CPT/HCPCS: 36415; 84132

== ENCOUNTER 2022-07-13 14:44 | Outpatient (REF) | payer MEDICARE, MEDICAID, SELFPAY ==
[2022-07-13 16:39] LABS: MANUAL DIFF FLAG NO
[2022-07-13 16:44] LABS: Basophils Percent Auto 0.3 % (0-2); Eosinophils Percent Auto 0.1 % (0-4); Imm Gran Abs Auto 0.03 X10*3/uL (0.00-0.03); Imm Gran Pct Auto 0.4 % (0.0-0.4); Lymphocytes Absolute Auto 2.3 X10*3/uL (1.2-4.9); Lymphocytes Percent Auto 30.7 % (20-40); Mean Corpuscular HGB Conc 33.3 g/dl (31.0-36.0); Mean Corpuscular Hemoglobin 28.5 pg (27.0-33.0); Mean Corpuscular Volume 85.5 fL (80.0-98.0); Mean Platelet Volume 9.6 fL (9.4-12.4); Monocytes Absolute Auto 0.5 X10*3/uL (0.1-1.2); Monocytes Percent Auto 7.2 % (2-11); Neutrophils Absolute Auto 4.5 x10*3/uL (2.0-8.3); Neutrophils Percent Auto 61.3 % (45-73); Platelet Count 286 X10*3/uL (160-400); Red Blood Count 4.91 X10*6/uL (4.60-5.80); Red Cell Distribution Width 14.1 % (11.0-16.0); White Blood Count 7.3 X10*3/uL (4.8-10.8)
[2022-07-13 17:07] LABS: Anion Gap 13 (12-20); Blood Urea Nitrogen 14 mg/dL (9-16); Carbon Dioxide 21 mmol/L (22-29); Chloride 103 mmol/L (96-108); Estimated Glomerular Filt Rate 43; Glucose Random 131 mg/dL (60-115); Potassium 4.8 mmol/L (3.3-5.1); Sodium 132 mmol/L (135-145)
[2022-07-13 17:19] LABS: Lithium < 0.10 mmol/L (0.60-1.20)
[2022-07-13 17:24] LABS: Thyroid Stimulating Hormone 1.14 uIU/mL (0.32-4.0)
== END 2022-07-13 14:45 | disposition home or self-care (01) ==
LOC: HO.HMGCLR 14:44
PROVIDERS: PCP Internal Medicine; Visit Provider Clinical Nurse Specialist Psychiatric/Mental Health, Adult
DX: Z79.899 Other long term (current) drug therapy (principal)
CPT/HCPCS: 36415; 80048; 80178; 84443; 85025

== ENCOUNTER 2022-08-12 14:21 | Outpatient (REF) | payer MEDICARE, MEDICAID, SELFPAY ==
[2022-08-12 17:03] LABS: MANUAL DIFF FLAG NO
[2022-08-12 17:06] LABS: Basophils Percent Auto 0.3 % (0-2); Eosinophils Percent Auto 0.2 % (0-4); Hematocrit 42.5 % (42.0-52.0); Hemoglobin 14.4 g/dl (14.0-18.0); Imm Gran Abs Auto 0.03 X10*3/uL (0.00-0.03); Imm Gran Pct Auto 0.3 % (0.0-0.4); Lymphocytes Percent Auto 33.9 % (20-40); Mean Corpuscular HGB Conc 33.9 g/dl (31.0-36.0); Mean Corpuscular Hemoglobin 28.3 pg (27.0-33.0); Mean Corpuscular Volume 83.5 fL (80.0-98.0); Mean Platelet Volume 10.4 fL (9.4-12.4); Monocytes Absolute Auto 0.7 X10*3/uL (0.1-1.2); Monocytes Percent Auto 7.8 % (2-11); Neutrophils Absolute Auto 5.1 x10*3/uL (2.0-8.3); Neutrophils Percent Auto 57.5 % (45-73); Platelet Count 278 X10*3/uL (160-400); Red Blood Count 5.09 X10*6/uL (4.60-5.80); Red Cell Distribution Width 14.1 % (11.0-16.0); White Blood Count 8.9 X10*3/uL (4.8-10.8)
== END 2022-08-12 14:22 | disposition home or self-care (01) ==
LOC: HO.HMGCLR 14:21
PROVIDERS: PCP Internal Medicine; Visit Provider Clinical Nurse Specialist Psychiatric/Mental Health, Adult
DX: Z79.899 Other long term (current) drug therapy (principal)
CPT/HCPCS: 36415; 85025

== ENCOUNTER 2022-09-09 11:48 | Outpatient (REF) | payer MEDICARE, MEDICAID, SELFPAY ==
[2022-09-09 13:33] LABS: MANUAL DIFF FLAG NO
[2022-09-09 13:53] LABS: Basophils Percent Auto 0.4 % (0-2); Eosinophils Absolute Auto 0.1 X10*3/uL (0.0-0.4); Eosinophils Percent Auto 0.8 % (0-4); Hematocrit 41.6 % (42.0-52.0); Hemoglobin 13.8 g/dl (14.0-18.0); Imm Gran Abs Auto 0.05 X10*3/uL (0.00-0.03); Imm Gran Pct Auto 0.6 % (0.0-0.4); Lymphocytes Absolute Auto 2.5 X10*3/uL (1.2-4.9); Lymphocytes Percent Auto 29.6 % (20-40); Mean Corpuscular HGB Conc 33.2 g/dl (31.0-36.0); Mean Corpuscular Hemoglobin 27.7 pg (27.0-33.0); Mean Corpuscular Volume 83.5 fL (80.0-98.0); Mean Platelet Volume 9.7 fL (9.4-12.4); Monocytes Absolute Auto 0.6 X10*3/uL (0.1-1.2); Monocytes Percent Auto 7.4 % (2-11); Neutrophils Absolute Auto 5.1 x10*3/uL (2.0-8.3); Neutrophils Percent Auto 61.2 % (45-73); Platelet Count 269 X10*3/uL (160-400); Red Blood Count 4.98 X10*6/uL (4.60-5.80); Red Cell Distribution Width 14.3 % (11.0-16.0); White Blood Count 8.4 X10*3/uL (4.8-10.8)
[2022-09-09 14:14] LABS: Lithium < 0.10 mmol/L (0.60-1.20)
[2022-09-09 14:28] LABS: Anion Gap 15 (12-20); Blood Urea Nitrogen 27 mg/dL (9-16); Calcium 10.8 mg/dL (8.4-10.2); Carbon Dioxide 20 mmol/L (22-29); Chloride 106 mmol/L (96-108); Estimated Glomerular Filt Rate 32; Glucose Random 194 mg/dL (60-115); Potassium 4.8 mmol/L (3.3-5.1); Sodium 136 mmol/L (135-145)
[2022-09-09 14:52] LABS: Thyroid Stimulating Hormone 0.63 uIU/mL (0.32-4.0)
== END 2022-09-09 11:49 | disposition home or self-care (01) ==
LOC: HO.HMGCLR 11:48
PROVIDERS: PCP Internal Medicine; Visit Provider Clinical Nurse Specialist Psychiatric/Mental Health, Adult
DX: Z79.899 Other long term (current) drug therapy (principal)
CPT/HCPCS: 36415; 80048; 80178; 84443; 85025

== ENCOUNTER 2022-10-12 11:15 | Outpatient (REF) | payer MEDICARE, MEDICAID, SELFPAY ==
[2022-10-12 13:21] LABS: MANUAL DIFF FLAG NO
[2022-10-12 13:44] LABS: Basophils Percent Auto 0.4 % (0-2); Eosinophils Percent Auto 0.1 % (0-4); Hematocrit 40.3 % (42.0-52.0); Imm Gran Abs Auto 0.04 X10*3/uL (0.00-0.03); Imm Gran Pct Auto 0.6 % (0.0-0.4); Lymphocytes Absolute Auto 1.8 X10*3/uL (1.2-4.9); Mean Corpuscular HGB Conc 34.7 g/dl (31.0-36.0); Mean Corpuscular Hemoglobin 28.3 pg (27.0-33.0); Mean Corpuscular Volume 81.6 fL (80.0-98.0); Mean Platelet Volume 10.9 fL (9.4-12.4); Monocytes Absolute Auto 0.5 X10*3/uL (0.1-1.2); Neutrophils Absolute Auto 4.5 x10*3/uL (2.0-8.3); Neutrophils Percent Auto 65.9 % (45-73); Platelet Count 246 X10*3/uL (160-400); Red Blood Count 4.94 X10*6/uL (4.60-5.80); White Blood Count 6.8 X10*3/uL (4.8-10.8)
== END 2022-10-12 11:16 | disposition home or self-care (01) ==
LOC: HO.HMGCLR 11:15
PROVIDERS: PCP Internal Medicine; Visit Provider Clinical Nurse Specialist Psychiatric/Mental Health, Adult
DX: Z79.899 Other long term (current) drug therapy (principal)
CPT/HCPCS: 36415; 85025

== ENCOUNTER 2022-10-16 13:49 | Emergency (ER) | payer MEDICARE, MEDICAID, SELFPAY ==
[2022-10-16 13:58] VITALS: BP 144/92; BP 158/96; PULSE 103; PULSE 107; RESP 18; O2SAT 93; BMI 31.9
[2022-10-16 14:05] LABS: Glucose, Whole Blood > 600 mg/dL (60-115)
[2022-10-16 14:05] LABS: Glucose, Whole Blood > 600 mg/dL (60-115)
--- NOTE | 2022-10-16 14:07 | MHC.EDTECH ---
POC machine read Kayla CERVANTESN. aware. Test done 2x. left middle finger and right middle finger. SG
[2022-10-16 14:13] LABS: MANUAL DIFF FLAG NO
[2022-10-16 14:15] LABS: Basophils Percent Auto 0.4 % (0-2); Eosinophils Percent Auto 0.1 % (0-4); Hemoglobin 13.9 g/dl (14.0-18.0); Imm Gran Abs Auto 0.04 X10*3/uL (0.00-0.03); Imm Gran Pct Auto 0.4 % (0.0-0.4); Lymphocytes Absolute Auto 2.6 X10*3/uL (1.2-4.9); Lymphocytes Percent Auto 28.5 % (20-40); Mean Corpuscular HGB Conc 35.6 g/dl (31.0-36.0); Mean Corpuscular Hemoglobin 28.5 pg (27.0-33.0); Mean Corpuscular Volume 79.9 fL (80.0-98.0); Mean Platelet Volume 10.6 fL (9.4-12.4); Monocytes Absolute Auto 0.7 X10*3/uL (0.1-1.2); Monocytes Percent Auto 7.3 % (2-11); Neutrophils Absolute Auto 5.7 x10*3/uL (2.0-8.3); Neutrophils Percent Auto 63.3 % (45-73); Platelet Count 246 X10*3/uL (160-400); Red Blood Count 4.88 X10*6/uL (4.60-5.80); Red Cell Distribution Width 13.7 % (11.0-16.0)
[2022-10-16 14:21] LABS: Appearance Urine Clear; Color Urine Yellow; Glucose Urine UA >=1000 mg/dL (Negative); Leukocyte Esterase Urine Negative (Negative); Nitrite Urine Negative (Negative); PH 6.5 (5.0-9.0); UMIC TRIGGER UACC YES; Urine Blood Negative (Negative); Urine Ketones Negative (Negative); Urine Protein Negative (Neg-Trace)
[2022-10-16 14:26] LABS: Bacteria Urine None Seen (None Seen); Hyaline Casts Urine 0-2 /LPF (0-2); RBC Urine 0-2 /HPF (0-2); Squamous Epithelial Cell Urine 0-2 /HPF (0-2); WBC Urine 0-5 /HPF (0-5)
--- NOTE | 2022-10-16 14:33 | PC.NURSE ---
2 reading with glucometer reported >600, MD aware. awaiting lab glucose result
[2022-10-16 14:34] LABS: Anion Gap 15 (12-20); Blood Urea Nitrogen 44 mg/dL (9-16); Calcium 10.8 mg/dL (8.4-10.2); Carbon Dioxide 21 mmol/L (22-29); Chloride 97 mmol/L (96-108); Creatinine Clr Calc Pharmacy 37.6; Estimated Glomerular Filt Rate 25; Potassium 4.7 mmol/L (3.3-5.1); Sodium 128 mmol/L (135-145)
[2022-10-16] MEDS: 0.9 % Sodium Chloride 1,000 ML 999 ML IV ×3 (14:41→16:05)
[2022-10-16] MEDS: Insulin Regular, Human 100 UNIT/ML 3 ML VIAL 10 UNIT IVPUSH (14:46)
--- NOTE | 2022-10-16 15:15 | ED.GENADULT ---
HPI - General Adult General Chief complaint: General Medical Stated complaint: High blood sugar per EMS Time Seen by Provider: 10/16/22 14:33 Source: patient Mode of arrival: ambulatory Limitations: other (poor historian ) History of Present Illness HPI narrative: 42 year old male history of diabetes mellitus, dyslipidemia, obesity, emphysema with restrictive airway disease, and history of schizoaffective disorder, followed by psychiatry, here today with concenrs his sugar has been high for one day, states his iCetanayle maria d monitor read high . No medical complaints. States med compliance. No CP, SOB, N/V, abd pain, headache, vision changes, diziness., dizziess, changes in bowel habits and urination Related Data Home Medications Medication Instructions Recorded Confirmed blood sugar diagnostic #10 ea 04/03/20 10/16/22 clozapine 200 mg tablet 200 mg PO BEDTIME 04/03/20 10/16/22 haloperidol 5 mg tablet 5 mg PO BID 04/03/20 10/16/22 lancets 30 gauge #100 ea 04/03/20 10/16/22 lorazepam 1 mg tablet 1 mg PO BID 04/03/20 10/16/22 acetaminophen 500 mg tablet 500 mg PO Q6H PRN Pain 01/15/22 10/16/22 (Tylenol Extra Strength) insulin lispro protamine-lispro 30 unit subcut BID 10/16/22 10/16/22 100 unit/mL (75-25) subcutaneous susp (Humalog Mix 75-25(U-100)Insuln) metformin 1,000 mg tablet 1,000 mg PO BID 10/16/22 10/16/22 Previous Rx's Medication Instructions Recorded docusate sodium 100 mg capsule 100 mg PO BID PRN constipation #60 05/15/20 caps pen needle, diabetic 33 gauge x #100 ea 12/15/2105/14 (Comfort EZ Pen [place]) Anoro Ellipta 62.5 mcg-25 1 ea PO DAILY #60 ea 06/12/22 mcg/actuation powder for inhalation (umeclidinium-vilanterol) albuterol sulfate 90 mcg/actuation 2 puff inhalation Q4-6H PRN for 06/22/22 aerosol inhaler wheezing #1 ea fenofibrate 160 mg tablet 160 mg PO DAILY #90 tabs 07/10/22 ferrous fumarate 324 mg (106 mg 324 mg PO DAILY #90 tabs 08/07/22 iron) tablet empagliflozin 25 mg tablet 25 mg PO DAILY #30 tabs 08/31/22 omeprazole 20 mg capsule,delayed 20 mg PO BID #56 caps 09/14/22 release Lantus Solostar U-100 Insulin 100 35 unit (0.35 mL) subcut QPM #15 mL 09/22/22 unit/mL (3 mL) subcutaneous pen (insulin glargine) losartan 25 mg tablet 25 mg PO DAILY #90 tabs 10/16/22 Allergies Allergy/AdvReac Type Severity Reaction Status Date / Time No Known Allergies Allergy Verified 08/31/22 11:31 Review of Systems Review of Systems: Constitutional : No Weight loss, No Fever, No Chills, No Fatigue, No Malaise ENT/Mouth : No sore throat, No Rhinorrhea Eyes: No Eye Pain, No Swelling, No Redness Cardiovascular : No Chest Pain, No SOB, No Dyspnea on Exertion, No Orthopnea, No Edema, No Palpitations Respiratory : No Cough, No Sputum, No Wheezing Gastrointestinal : No Nausea, No Vomiting, No Diarrhea, No Constipation, No abdominal Pain, No Hematochezia, No Melena Genitourinary : No Dysuria, No Urinary Frequency, No Hematuria, Musculoskeletal : No joint pain, No Myalgias, No Joint Swelling Skin : No Skin Lesions, No rash Neuro : No Weakness, No Numbness, No Dizziness, No Headache Psych : No Anxiety/Panic, No Depression All other systems reviewed and are negative Yes all other systems are reviewed and are negative [facility] Past Medical History Attestation statement: The following information was validated with the patient. Source: old records reviewed and nursing notes reviewed Medical History Essential hypertension Mixed dyslipidemia Obesity (BMI 30-39.9) Rash and nonspecific skin eruption Restrictive airway disease Schizoaffective disorder Smoker unmotivated to quit Solitary pulmonary nodule on lung CT Tremor Type 2 diabetes mellitus with other diabetic kidney complication Vitamin D deficiency Surgical History No pertinent past surgical history Family History Family History Father Unknown family medical history Mother Unknown family medical history Brother No problems noted. Sister No problems noted. Social History Social History Housing: Other Housing Other:: half-way Alcohol intake: never Patient Tobacco Use Status: Current everyday Tobacco user Cigarette Packs Per Day: 2 Smoked in Last 30 Days: Yes e-Cigarette/Vaping Use: Never Used Use of substances other than those prescribed or required for medical reasons: No Advance Directives: No service: No Current occupational status: disabled Cognitive needs: No Hearing needs: No Vision needs: Yes Physical Exam ED Vital Signs: Vital Signs - 24 hr 10/16/22 13:58 10/16/22 17:35 Temperature 99.0 F Pulse Rate 103 H 81 Respiratory Rate 18 18 Blood Pressure 144/92 H 145/87 H Pulse Oximetry 93 98 Oxygen Delivery Method Room Air Room Air BMI result Body Mass Index 31.9 vss Appearance: Alert.? Oriented X3.? No acute distress.?Bizzare affect, unkempt. Head: Normocephalic, atraumatic, no step-offs or deformities Eyes: Pupils equal, round and reactive to light.? Neck: Normal inspection.? Neck supple.? CVS: Normal heart rate and rhythm.? Pulses normal.? Respiratory: No respiratory distress.? Breath sounds normal.? Abdomen: Soft and nontender.? Skin: Skin warm and dry.? Normal skin color.? Normal skin turgor.? Extremities: No lower extremity edema.? No calf ttp. 5/5 strength to bilateral upper and lower extremities Neuro: Oriented X 3.? No motor deficit.? No sensory deficit. CN 2-12 intact . Normal finger to nose, negative romberg and pronator drift. 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 Course Reevaluation(s) Reevaluation #1: Patient's CBC appears to be around patient's baseline. No acute finding. Patient's sodium 128, normal anion gap, normal potassium. Noted to have an acute on chronic kidney injury will hydrate with IV fluids, patient's blood glucose 721, giving 2 L IV fluids with 10 units of IV insulin. Patient's urine clean without infection noted to have glucose however no ketones. Beta hydroxybutyrate pending, VBG pending. I do not suspect that this is acute diabetic ketoacidosis. Time: 15:22 Reevaluation #2: Spoke to patients PCP states patient is at a half-way for intellectual delayed individuals, he has a poor diet. No longer on metformin due to kidney function. She feels as though patient would benifit from pscy consult, PT and CM. Unclear if patient is getting his meds, he is an unreliable historian per PCP. Usually has bizarre affect, this is not new. Time: 15:35 Reevaluation #3: Beta hydroxybutyrate normal again reassuring unlikely HHS, DKA. Likely poorly controlled diabetes likely secondary to poor med compliance. Time: 16:20 Additional Reevaluation(s): 1802 Patient's blood sugar normalized, will continue him on home meds. Patient is being followed by PT and case management. They are trying to figure out patient's outpatient providers and what resources he currently has at home. There is concerns the patient sugar was likely elevated secondary to non med compliance. PCP also vocalize interest in a possible psychiatric evaluation on this patient. At this time patient to be placed into observation to allow more time to be evaluated by PT, case management. Pending disposition. Patient aware. ( please refer to CM note.) Medications Administered Discontinued Medications Generic Name Dose Route Start Last Admin Trade Name Freq PRN Reason Stop Dose Admin Sodium Chloride 1,000 mls @ 999 mls/hr 10/16/22 14:45 10/16/22 15:51 Ns IV 10/16/22 15:45 Infused .Q1H1M ELIZA Infusion Sodium Chloride 1,000 mls @ 999 mls/hr 10/16/22 14:45 10/16/22 15:51 Ns IV 10/16/22 15:45 Infused .Q1H1M ELIZA Infusion Sodium Chloride 1,000 mls @ 999 mls/hr 10/16/22 16:00 10/16/22 17:09 Ns IV 10/16/22 17:00 Infused .Q1H1M ELIZA Infusion Insulin Human Regular 10 unit 10/16/22 14:35 10/16/22 14:46 Insulin Regular, Human 100 Unit/Ml 3 Ml Vial 0.1 unit/kg (10 unit) 10/16/22 14:36 10 unit IVPUSH Administration ONCE ONE Medical Decision Making Medical Decision Making MDM Narrative: 42-year-old male presents with high sugars, no medical complaints. According to chart review patient's PCP states 42-year-old male with diabetes mellitus currently on Humalog 109535 units but twice a day and metformin 1000 mg twice a day and Jardiance 10 mg daily, here today for follow-up.? Patient states that his nurses have been insisting that he take his evening dose of insulin even though his sugar has been running low around 60.? He has freestyle Maria D and has been checking his blood sugar and he states that his blood sugar has always been running low in the evenings.? Last hemoglobin A1c April 2022 was 5.5%.? He also states that he has been taking his Jardiance and around 11:00 o'clock when his nurses, in to give him his medicine, takes it with food peer ? PE patient with bizarre affect, unkempt. Likely poorly controlled diabetes mellitus, versus HHS versus DKA. Will rule out electrolyte disturbances. No signs of diabetic coma. No signs of encephalopathy. Plan labs, point of care, insulin, fluids, urine Differential Diagnosis Differential Diagnoses: The differential diagnosis associated with the presentation includes Likely poorly controlled diabetes mellitus, versus HHS versus DKA. Will rule out electrolyte disturbances. No signs of diabetic coma. No signs of encephalopathy. Admission/Observation Consideration of admission/observation: Escalation of care including admission/observation considered Possible Lab Data MDM Lab Attestation statement: I reviewed the patient's lab results. 10/16/22 14:09 10/16/22 14:09 Labs: Lab Results 10/16/22 10/16/22 10/16/22 Range/Units 14:00 14:02 14:09 WBC 9.0 (4.8-10.8) X10*3/uL RBC 4.88 (4.60-5.80) X10*6/uL Hgb 13.9 L (14.0-18.0) g/dl Hct 39.0 L (42.0-52.0) % MCV 79.9 L (80.0-98.0) fL MCH 28.5 (27.0-33.0) pg MCHC 35.6 (31.0-36.0) g/dl RDW 13.7 (11.0-16.0) % Plt Count 246 (160-400) X10*3/uL MPV 10.6 (9.4-12.4) fL Immature Gran % (Auto) 0.4 (0.0-0.4) % Neut % (Auto) 63.3 (45-73) % Lymph % (Auto) 28.5 (20-40) % Montgomery % (Auto) 7.3 (2-11) % Eos % (Auto) 0.1 (0-4) % Baso % (Auto) 0.4 (0-2) % Lymph # (Auto) 2.6 (1.2-4.9) X10*3/uL Montgomery # (Auto) 0.7 (0.1-1.2) X10*3/uL Eos # (Auto) 0.0 (0.0-0.4) X10*3/uL Baso # (Auto) 0.0 (0.0-0.2) X10*3/uL Abs Immat Gran (auto) 0.04 H (0.00-0.03) X10*3/uL Absolute Neuts (auto) 5.7 (2.0-8.3) x10*3/uL Absolute Nucleated RBC 0.000 (0.0-0.012) X10*3/uL Nucleated RBC % (auto) 0.0 (0.0-0.2) /100WBC VBG pH (7.32-7.43) VBG pCO2 mmHg VBG pO2 mmHg VBG HCO3 (22-26) mmol/L VBG O2 Saturation % VBG Base Excess mmol/L Sodium (135-145) mmol/L Potassium (3.3-5.1) mmol/L Chloride (96-108) mmol/L Carbon Dioxide (22-29) mmol/L Anion Gap (12-20) BUN (9-16) mg/dL Creatinine (0.5-1.4) mg/dL Estim Creat Clear Calc Estimated GFR POC Glucose > 600 H* > 600 H* (60-115) mg/dL Random Glucose (60-115) mg/dL Calcium (8.4-10.2) mg/dL Beta-Hydroxybutyrate (0.02-0.27) mmol/L Urine Color Urine Appearance Urine pH (5.0-9.0) Ur Specific Bluefield (1.005-1.025) Urine Protein (Neg-Trace) mg/dL Urine Glucose (UA) (Negative) mg/dL Urine Ketones (Negative) mg/dL Urine Blood (Negative) Urine Nitrite (Negative) Ur Leukocyte Esterase (Negative) Urine RBC (0-2) /HPF Urine WBC (0-5) /HPF Ur Squamous Epith Cells (0-2) /HPF Urine Bacteria (None Seen) Hyaline Casts (0-2) /LPF 10/16/22 10/16/22 10/16/22 Range/Units 14:09 14:12 15:14 WBC (4.8-10.8) X10*3/uL RBC (4.60-5.80) X10*6/uL Hgb (14.0-18.0) g/dl Hct (42.0-52.0) % MCV (80.0-98.0) fL MCH (27.0-33.0) pg MCHC (31.0-36.0) g/dl RDW (11.0-16.0) % Plt Count (160-400) X10*3/uL MPV (9.4-12.4) fL Immature Gran % (Auto) (0.0-0.4) % Neut % (Auto) (45-73) % Lymph % (Auto) (20-40) % Montgomery % (Auto) (2-11) % Eos % (Auto) (0-4) % Baso % (Auto) (0-2) % Lymph # (Auto) (1.2-4.9) X10*3/uL Montgomery # (Auto) (0.1-1.2) X10*3/uL Eos # (Auto) (0.0-0.4) X10*3/uL Baso # (Auto) (0.0-0.2) X10*3/uL Abs Immat Gran (auto) (0.00-0.03) X10*3/uL Absolute Neuts (auto) (2.0-8.3) x10*3/uL Absolute Nucleated RBC (0.0-0.012) X10*3/uL Nucleated RBC % (auto) (0.0-0.2) /100WBC VBG pH (7.32-7.43) VBG pCO2 mmHg VBG pO2 mmHg VBG HCO3 (22-26) mmol/L VBG O2 Saturation % VBG Base Excess mmol/L Sodium 128 L (135-145) mmol/L Potassium 4.7 (3.3-5.1) mmol/L Chloride 97 (96-108) mmol/L Carbon Dioxide 21 L (22-29) mmol/L Anion Gap 15 (12-20) BUN 44 H (9-16) mg/dL Creatinine 2.83 H (0.5-1.4) mg/dL Estim Creat Clear Calc 37.6 Estimated GFR 25 POC Glucose (60-115) mg/dL Random Glucose 721 H* (60-115) mg/dL Calcium 10.8 H (8.4-10.2) mg/dL Beta-Hydroxybutyrate 0.07 (0.02-0.27) mmol/L Urine Color Yellow Urine Appearance Clear Urine pH 6.5 (5.0-9.0) Ur Specific [place] 1.010 (1.005-1.025) Urine Protein Negative (Neg-Trace) mg/dL Urine Glucose (UA) >=1000 H (Negative) mg/dL Urine Ketones Negative (Negative) mg/dL Urine Blood Negative (Negative) Urine Nitrite Negative (Negative) Ur Leukocyte Esterase Negative (Negative) Urine RBC 0-2 (0-2) /HPF Urine WBC 0-5 (0-5) /HPF Ur Squamous Epith Cells 0-2 (0-2) /HPF Urine Bacteria None Seen (None Seen) Hyaline Casts 0-2 (0-2) /LPF 10/16/22 10/16/22 10/16/22 Range/Units 15:15 15:45 17:33 WBC (4.8-10.8) X10*3/uL RBC (4.60-5.80) X10*6/uL Hgb (14.0-18.0) g/dl Hct (42.0-52.0) % MCV (80.0-98.0) fL MCH (27.0-33.0) pg MCHC (31.0-36.0) g/dl RDW (11.0-16.0) % Plt Count (160-400) X10*3/uL MPV (9.4-12.4) fL Immature Gran % (Auto) (0.0-0.4) % Neut % (Auto) (45-73) % Lymph % (Auto) (20-40) % Montgomery % (Auto) (2-11) % Eos % (Auto) (0-4) % Baso % (Auto) (0-2) % Lymph # (Auto) (1.2-4.9) X10*3/uL Montgomery # (Auto) (0.1-1.2) X10*3/uL Eos # (Auto) (0.0-0.4) X10*3/uL Baso # (Auto) (0.0-0.2) X10*3/uL Abs Immat Gran (auto) (0.00-0.03) X10*3/uL Absolute Neuts (auto) (2.0-8.3) x10*3/uL Absolute Nucleated RBC (0.0-0.012) X10*3/uL Nucleated RBC % (auto) (0.0-0.2) /100WBC VBG pH 7.36 (7.32-7.43) VBG pCO2 35 mmHg VBG pO2 78 mmHg VBG HCO3 20 L (22-26) mmol/L VBG O2 Saturation 96.0 % VBG Base Excess -4.0 mmol/L Sodium (135-145) mmol/L Potassium (3.3-5.1) mmol/L Chloride (96-108) mmol/L Carbon Dioxide (22-29) mmol/L Anion Gap (12-20) BUN (9-16) mg/dL Creatinine (0.5-1.4) mg/dL Estim Creat Clear Calc Estimated GFR POC Glucose 365 H* 280 H (60-115) mg/dL Random Glucose (60-115) mg/dL Calcium (8.4-10.2) mg/dL Beta-Hydroxybutyrate (0.02-0.27) mmol/L Urine Color Urine Appearance Urine pH (5.0-9.0) Ur Specific [place] (1.005-1.025) Urine Protein (Neg-Trace) mg/dL Urine Glucose (UA) (Negative) mg/dL Urine Ketones (Negative) mg/dL Urine Blood (Negative) Urine Nitrite (Negative) Ur Leukocyte Esterase (Negative) Urine RBC (0-2) /HPF Urine WBC (0-5) /HPF Ur Squamous Epith Cells (0-2) /HPF Urine Bacteria (None Seen) Hyaline Casts (0-2) /LPF Core Measures AMI core measures followed: Yes Measure exclusions: not indicated Critical Care Time Critical Care Time Critical Care Time: No Discharge Plan Discharge Clinical Impression: Poorly controlled disease, DERRICK (acute kidney injury), Acute hyperglycemia Patient Disposition: Still a Patient Prescriptions: No Action docusate sodium 100 mg capsule 100 mg PO BID PRN (Reason: constipation) Qty: 60 0RF (DME) pen needle, diabetic [Comfort EZ Pen [place]] 33 gauge x 3/16 needle See Rx Instructions .Route Qty: 100 5RF Rx Instructions: inject insulin twice daily Anoro Ellipta 62.5-25 mcg/actuation blister with device 1 ea PO DAILY Qty: 60 5RF albuterol sulfate 90 mcg/actuation HFA aerosol inhaler 2 puff inhalation Q4-6H PRN (Reason: for wheezing) Qty: 1 1RF fenofibrate 160 mg tablet 160 mg PO DAILY Qty: 90 1RF ferrous fumarate 324 mg (106 mg iron) tablet 324 mg PO DAILY Qty: 90 1RF Rx Instructions: take with Vitamin C tablets or orange juice omeprazole 20 mg capsule,delayed release(DR/EC) 20 mg PO BID Qty: 56 5RF losartan 25 mg tablet 25 mg PO DAILY Qty: 90 1RF metformin 1,000 mg tablet 1,000 mg PO BID Humalog Mix 75-25(U-100)Insuln 100 unit/mL (75-25) suspension 30 unit subcut BID lorazepam 1 mg tablet 1 mg PO BID clozapine 200 mg tablet 200 mg PO BEDTIME haloperidol 5 mg tablet 5 mg PO BID (DME) lancets 30 gauge misc See Rx Instructions Not Applicable BID Qty: 100 Rx Instructions: As directed (DME) Easy Talk Glucose Test Strip See Rx Instructions Not Applicable BID Qty: 10 Rx Instructions: As directed acetaminophen [Tylenol Extra Strength] 500 mg tablet 500 mg PO Q6H PRN (Reason: Pain) Jardiance 25 mg tablet 25 mg PO DAILY Qty: 30 6RF Rx Instructions: Take 1 tablet 1 hour before breakfast insulin glargine [Lantus Solostar U-100 Insulin] 100 unit/mL (3 mL) insulin pen 35 unit subcut QPM Qty: 15 1RF
[2022-10-16 15:27] LABS: VBG HCO3 20 mmol/L (22-26); VBG pCO2 35 mmHg; VBG pH 7.36 (7.32-7.43); VBG pO2 78 mmHg
[2022-10-16 15:35] LABS: Beta-Hydroxybutyrate 0.07 mmol/L (0.02-0.27)
[2022-10-16 15:42] LABS: Venous Blood Gas Refer to POC result
[2022-10-16 15:48] LABS: Glucose, Whole Blood 365 mg/dL (60-115)
--- NOTE | 2022-10-16 16:02 | MHC.CM.ED ---
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 HE ALSO HAS DAILY CORPORATE SALES MANAGER SERVICES. CALL TO [facility] @ [phone] T/W GIVEN ROSIE'S CONTACT NUMBER OF [phone]. MESSAGE LEFT FOR A CALL BACK TO DISCUSS PATIENT DC PLAN. PROVIDER UPDATED.
--- NOTE | 2022-10-16 16:04 | PHA.MEDREC ---
Pharmacy Consult ? Medication Reconciliation Pharmacy has completed the medication reconciliation. Patient is poor historian, did not know his meds or last time taken. [facility], called for clarification on some medications and used claims for others. Patient is on clozaril 200 mg, last dose taken unknown
--- NOTE | 2022-10-16 16:12 | MHC.CM.ED ---
Addendum entered by Iva Luther RN 10/16/22 16:15: CALL TO [facility] @ [phone]. MESSAGE LEFT IN GENERAL MAILBOX FOR A CALL BACK TO DISCUSS PATIENT DC NEEDS Original Note: CALL TO DDS RN, WAYLON. PER WAYLON, PATIENT IS LIKELY AFFILIATED WITH [facility] SERVICES. SHE IS AWARE FROM WORK AT THIS TIME AND UNABLE TO HELP LOOK UP ANY FURTHER INFORMATION. SHE WILL CALL T/W BACK ONCE SHE HAS ACCESS.
[2022-10-16 17:35] VITALS: BP 145/87; PULSE 81; RESP 18; TEMP 37.2; O2SAT 98
[2022-10-16 17:36] LABS: Glucose, Whole Blood 280 mg/dL (60-115)
[2022-10-16 19:27] VITALS: BP 139/82; PULSE 74; RESP 18; O2SAT 96
[2022-10-16 21:19] LABS: Glucose, Whole Blood 233 mg/dL (60-115)
[2022-10-16] MEDS: HaloperidoL 5 MG TABLET PO (21:25)
[2022-10-16] MEDS: Insulin Glargine,Hum.rec.anlog 100 UNIT/ML 10 ML VIAL 35 UNIT SUBCUT (21:25)
[2022-10-16] MEDS: LORazepam 1 MG TABLET PO (21:25)
[2022-10-16] MEDS: Insulin Lispro 100 UNIT/ML 3 ML VIAL SUBCUT (21:26)
[2022-10-16 22:04] VITALS: BP 144/80; PULSE 90; RESP 20; TEMP 36.6; O2SAT 97
--- NOTE | 2022-10-16 22:25 | PC.NURSE ---
late entry: this RN called pharmacy for missing medication. Pt medicated otherwise per APR.Pt tolerated well, now resting
[2022-10-16] MEDS: cloZAPine 25 MG TABLET 50 MG PO (22:27)
--- NOTE | 2022-10-17 00:33 | PC.NURSE ---
pt resting comfortably in bed at this time, respirations even and unlabored, skin pwd. Occasionally getting up to walk around, empties urinal by oneself. No apparent distress at this time
--- NOTE | 2022-10-17 02:29 | PC.NURSE ---
pt continues to rest comfortably, offers no complaints to this RN. Respirations even and unlabored, skin pwd, laying down at this time. Continue plan of care for physician obs
[2022-10-17 03:05] VITALS: BP 138/92; PULSE 88; RESP 15; O2SAT 98
[2022-10-17 05:45] VITALS: BP 156/86; PULSE 79; RESP 17; TEMP 36.7; O2SAT 99
--- NOTE | 2022-10-17 06:46 | PC.NURSE ---
verbal report given to RN on overflow unit
[2022-10-17] MEDS: Omeprazole 20 MG CAPSULE.DR PO (07:07)
[2022-10-17 07:08] VITALS: BP 144/91; PULSE 86; RESP 16; O2SAT 98
--- NOTE | 2022-10-17 08:16 | MHC.EDTECH ---
Pt asked for clothes to be washed. Clothes are being washed in the behavioral pod washer. Put in at 0814am SG.
[2022-10-17 08:17] LABS: Glucose, Whole Blood 231 mg/dL (60-115)
[2022-10-17] MEDS: Ferrous Sulfate 324 MG TABLET.DR PO (08:50)
[2022-10-17] MEDS: LORazepam 1 MG TABLET PO (08:50)
[2022-10-17] MEDS: Insulin Lispro 100 UNIT/ML 3 ML VIAL SUBCUT ×2 (08:50→11:59)
[2022-10-17] MEDS: Docusate Sodium 100 MG CAPSULE PO (08:53)
[2022-10-17] MEDS: Fenofibrate 160 MG TABLET PO (09:25)
[2022-10-17] MEDS: Empagliflozin 25 MG TABLET PO (09:25)
[2022-10-17] MEDS: HaloperidoL 5 MG TABLET PO (09:25)
[2022-10-17 10:06] VITALS: BP 152/90; PULSE 78; RESP 18; TEMP 36.5; O2SAT 98
--- NOTE | 2022-10-17 10:07 | MHC.EDTECH ---
Patients clothes are washed, dried, folded and returned to pt overflow room 7 SG.
[2022-10-17 10:34] LABS: Anion Gap 13 (12-20); Blood Urea Nitrogen 37 mg/dL (9-16); Calcium 10.5 mg/dL (8.4-10.2); Carbon Dioxide 24 mmol/L (22-29); Chloride 109 mmol/L (96-108); Creatinine Clr Calc Pharmacy 42.8; Estimated Glomerular Filt Rate 28; Glucose Random 336 mg/dL (60-115); Potassium 5.2 mmol/L (3.3-5.1); Sodium 141 mmol/L (135-145)
[2022-10-17 11:54] LABS: Glucose, Whole Blood 301 mg/dL (60-115)
[2022-10-19 08:40] LABS: Glucose Random 721 mg/dL (60-115)
== END 2022-10-17 15:00 | disposition home or self-care (01) ==
PROVIDERS: Physician Assistant; Physician Assistant Medical; Emergency Provider Emergency Medicine Emergency Medical Services; PCP Internal Medicine
DX: E11.65 Type 2 diabetes mellitus with hyperglycemia (principal); N17.9 Acute kidney failure, unspecified; I10 Essential (primary) hypertension; E78.2 Mixed hyperlipidemia; F25.9 Schizoaffective disorder, unspecified; F17.210 Nicotine dependence, cigarettes, uncomplicated; E66.9 Obesity, unspecified; Z68.31 Body mass index [BMI] 31.0-31.9, adult; Z91.148 Patient's other noncompliance with medication regimen for other reason
CPT/HCPCS: 36415; 80048; 81001; 82010; 82803; 82947; 85025; 96361; 96374; 99284

== ENCOUNTER 2022-10-21 12:17 | Outpatient (AMB) | payer MEDICARE, MEDICAID, SELFPAY ==
--- NOTE | 2022-10-21 12:20 | A.OFFPC_ITS ---
Vital Signs 10/21/22 12:23 Height 5 ft 8 in Weight 217 lb BMI 33.0 BP 132/76 Blood Pressure Location Rt brachial Position Sitting Pulse 101 H Pulse Source Pulse Oximeter Pulse Oximetry (%) 97 Intake Visit Reasons: [facility] ER hyperglycemia Intake Note: pt is here for ED f/u - hyperglycemia Receptionist Required: No Accompanied by: Self / Same As Patient Allergies No Known Allergies Allergy (Verified 10/21/22 12:36) Medication List - Last Reconciled 10/21/22 by Rowena Cedeno MD acetaminophen (Tylenol Extra Strength) 500 mg PO Q12H PRN albuterol sulfate 90 mcg/actuation 2 puffs inhalation Q4-6H PRN Anoro Ellipta 62.5-25 mcg/actuation (umeclidinium-vilanterol) 1 ea PO DAILY NS clozapine 200 mg PO BEDTIME docusate sodium 100 mg PO BID PRN fenofibrate 160 mg PO DAILY ferrous fumarate 324 mg PO DAILY haloperidol 5 mg PO BID insulin glargine (Lantus Solostar U-100 Insulin) 40 units subcut QAM lorazepam 1 mg PO BID losartan 25 mg PO DAILY Tobacco use date assessed: 08/31/22 HPI [facility] ER hyperglycemia HPI Details 42 year old male history of diabetes mellitus, dyslipidemia, obesity, emphysema with restrictive airway disease, and history of schizoaffective disorder, followed by psychiatry, here today for follow-up after recent ER visit for acute hyperglycemia with freestyle Maria D reading high. At the ER his blood sugar was in the 700s. He has been on Humalog 75/ 25 , and sliding scale of insulin, as well as empagliflozin and metformin in the past, the latter discontinued due to decreasing renal function. Patient however has not been compliant with his medications or his diet. He has irregular meal times and eats whatever he likes. He has been taking his empagliflozin at 11:00 with his breakfast and has not been taking his insulin regularly. He has [facility] preparing his insulin and patient administers it to himself. His breakfast this morning was mashed potatoes with present spots, and had this neck of salad which was potato salad mid day. He gets meals on wheels once a day, but this consists of mashed potatoes, pasta and fruit cup all the time. States that he prepares his own dinner which usually consists of cereal, or any leftover meals. ? 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 Sister No problems noted. Social History Housing: Other [facility] Other[facility] Alcohol intake: never Patient Tobacco Use Status: Current everyday Tobacco user Cigarette Packs Per Day: 2 e-Cigarette/Vaping Use: Never Used service: No Current occupational status: disabled Cognitive needs: No Hearing needs: No Vision needs: Yes Questionnaire Thrive Questionnaire Date Thrive assessed: 10/21/22 What is your living situation today?: I have a steady place to live Within the past 12 months, did the food you bought not last and you didn't have the money to get more?: Never true Within the past 12 months, did you worry whether your food would run out before you got money to buy more?: Never true Do you have trouble paying for medicines?: No Do you have trouble getting transportation to medical appointments?: No Do you have trouble paying your heating and electricity bill?: No Do you have trouble taking care of your child, family member or friend?: No Do you have trouble with day-to-day activities such as bathing, preparing meals, shopping, managing finances, etc.?: No Are you currently unemployed and looking for a job?: No Are you interested in more education?: No AUDIT C Alcohol Use Questionnaire (AUDIT-C) 1. How often do you have a drink containing alcohol?: Never Total Score: 0 WILBERTO-7 AMB Questionnaire WILBERTO-7 Date WILBERTO - 7 assessed: 01/15/22 Source: Developed by Drs. Mauro Lunsford, Kimmie Rizvi, Remy Mora and colleagues, with an educational dale from [employer]. Review of Systems Const Denies daytime sleepiness, Denies fatigue, Denies headache(s) and Denies malaise Eyes Denies change in vision ENT Denies vertigo, Denies headache(s), Denies nasal congestion and Denies post nasal drip Card Denies chest pain, Denies pedal edema, Denies dyspnea and Denies orthopnea Resp Denies cough, Denies hemoptysis, Denies dyspnea and Denies wheezing GI Denies abdominal pain and Denies heartburn Denies genital lesions, Denies dysuria, Reports urinary frequency, Denies urinary incontinence and Denies urinary urgency Musc Denies myalgias, Denies arthralgias and Denies joint swelling Neuro Denies vertigo, Denies headache(s) and Denies Sensory deficit (Neuro) Endo Denies fatigue, Reports polydipsia and Reports polyuria Jimmy/Lymph Denies easy bruising Aller/Immun Denies seasonal rhinorrhea and Denies wheezing Physical exam (Primary Care) Vital Signs: Last Vital Signs Pulse 101 H 10/21/22 12:23 BP 132/76 10/21/22 12:23 Pulse Ox 97 10/21/22 12:23 BMI result Body Mass Index 33.0 Tobacco/Smoking Status: Tobacco use Status Tobacco use date assessed 08/31/22 10/21/22 12:21 Patient Tobacco Use Status Current everyday Tobacco 10/21/22 12:21 e-Cigarette/Vaping Use Never Used 10/21/22 12:21 Are you ready to quit: No Thrive Assessment: Date of Thrive Assessment Date Thrive assessed 01/15/22 10/21/22 12:21 Const Other: Nursing Unit Coordinator present General: cooperative, comfortable, no acute distress, poor hygiene and other (unkempt) Orientation/consciousness: patient oriented x3 HENMT Head: Yes normocephalic Ears: hearing grossly normal bilaterally General nose exam: Normal external nose present Face and sinus: Yes face symmetric Mouth: Normal oral and palatal mucosa present and moist mucous membranes Teeth and gingiva: poor dentition Eyes General: appearance normal, both eyes and all related structures Neck Neck: Yes full ROM, Yes no lymphadenopathy and Yes supple Resp Effort & Inspection: normal respiratory effort and able to speak in complete sentences Auscultation: clear to auscultation bilaterally Cardio Rate: regular rate Rhythm: regular rhythm Heart sounds: S1 normal heart sound present and S2 normal heart sound present GI Inspection: Yes obesity Palpation (GI): Soft to palpation, nontender, no guarding and no masses General: Yes no CVA tenderness Back/Spine/Pelvis Back: no CVA tenderness and No back tenderness Neuro General: patient oriented x3, gait normal, moves all extremities, Normal light touch and pain sensation, no focal motor deficits and CN's II-XI intact bilaterally Gait exam (Neuro): Normal gait present Sensory Exam: No Sensory deficit (Neuro) Extrem Other: Thickened and toenails bilaterally, peripheral pulses full and equal, no pedal edema noted, plantar calluses bilateral General: Yes full ROM, Yes no joint enlargement, Yes no pedal edema and Yes normal gait Results AMB Hemoglobin A1c AMB Hemoglobin A1c 9.7 % Last Edit by Jimmy Lim CMA on 10/21/22 12: 45 Results Reviewed Results Reviewed: Laboratory Last Values Hgb A1c (Clinic) 9.7 % (4.0-6.0) H 10/21/22 12:45 SPEC : [id number] KESHAWN: 10/16/22 STATUS: COMP REQ : [id number] RECD: 10/16/[address]: Sukhjinder Steel MD COMP: 10/16/22 ENTERED: 10/16/[address]: Rowena Cedeno MD [facility] ED Physician ORDERED: CBC Auto Diff Test Result Flag Reference Site WBC 9.0 4.8-10.8 X1 0*3/uL RBC 4.88 4.60-5.80 X10*6/uL HGB 13.9 L 14.0-18.0 g/dl HCT 39.0 L 42.0-52.0 % MCV 79.9 L 80.0-98.0 fL MCH 28.5 27.0-33.0 pg MCHC 35.6 31.0-36.0 g/dl RDW 13.7 11.0-16.0 % PLT 246 160-400 X10*3/uL MPV 10.6 9.4-12.4 fL Neut Pct Auto 63.3 45-73 % ImGran Pct Auto 0.4 0.0-0.4 % Lymp Pct Auto 28.5 20-40 % Hickman Pct Auto 7.3 2-11 % Eos Pct Auto 0.1 0-4 % Baso Pct Auto 0.4 0-2 % NRBC Pct Auto 0.0 0.0-0.2 /100WBC ANC Neut Abs # 5.7 2.0-8.3 x10*3/uL ImGran Abs Auto 0.04 H 0.00-0.03 X10*3/uL Lymph Abs Auto 2.6 1.2-4.9 X10*3/uL Hickman Abs Auto 0.7 0.1-1.2 X10*3/uL Eos Abs Auto 0.0 0.0-0.4 X10*3/uL Baso Abs Auto 0.0 0.0-0.2 X10*3/uL NRBC Abs Auto 0.000 0.0-0.012 X10*3/uL ENTERED: 10/17/[address] [facility] [address]: Rowena Cedeno MD ORDERED: BMP Test Result Flag Reference Site Sodium 141 135-145 mmol/L Potassium 5.2 H 3.3-5.1 mmol/L CL 109 H 96-108 mmol/L CO2 24 22-29 mmol/L Gap 13 12-20 BUN 37 H 9-16 mg/dL Creat 2.49 H 0.5-1.4 mg/dL Estimated CrCl 42.8 eGFR (calculated from the MDRD study equation) and eCrCl (calculated from the Cockcroft-Gault equation) are bas ed on different parameters and may not yield comparable results. If eCrCl result is absurd, please check patient's height/weight. EGFR 28 NOTE: For -Vietnamese individuals, multiply the result by 1.210. Chronic Kidney Disease: Estimated GFR < 60 mL/min/1.73m2 Severe Kidney Disease: Estimated GFR < 15 mL/min/1.73m2 Glucose, Random 336 H 60-115 mg/dL CA 10.5 H 8.4-10.2 mg/dL Assessment and Plan Assessment & Plan (1) Type 2 diabetes mellitus with other diabetic kidney complication: Code(s): E11.29 - Type 2 diabetes mellitus with other diabetic kidney complication Plan: Lantus dose was increased to 40 units subQ twice a day a.m. and p.m. before breakfast and supper, stressed importance of taking his empagliflozin 25 mg daily in a.m. an hour before breakfast and to take only with water. Referred to diabetic nurse, with regards to doing home visit to educate patients with regards to diet and further diabetes education. Stressed importance of getting flu vaccine and getting his COVID booster. Up-to-date with his pneumococcal vaccination. He is up-to-date with his diabetes retinopathy screening and sabina betes foot exam (2) Smoker unmotivated to quit: Code(s): F17.200 - Nicotine dependence, unspecified, uncomplicated Plan: Patient strongly advised to stop smoking, as smoking damages blood vessels, degenerative of joints and spine, damage to lungs and heart., predisposes to developing certain cancers like lung, breast, bladder, colon. Recommended to try decreasing cigarette use by 1-2 cigarettes a day. Advised to monitor what triggers are for smoking so that this can be discussed on the next office visit. We can discuss different options to quit smoking when ready. (3) Obesity (BMI 30-39.9): Code(s): E66.9 - Obesity, unspecified Plan: Referred to Community navigation service/circuit manager, for assistance for dietary guidance and further diabetes education. (4) Schizoaffective disorder: Code(s): F25.9 - Schizoaffective disorder, unspecified Plan: Followed by psychiatry (5) Essential hypertension: Code(s): I10 - Essential (primary) hypertension Plan: Blood pressure at goal of less than 130/80. Continue with losartan 25 mg daily. Reinforced importance of following a low sodium diet, getting regular exercise, and lowering stress levels. (6) Noncompliance with medication regimen: Code(s): Z91.148 - Patient's other noncompliance with medication regimen for other reason (7) Hypercalcemia: Code(s): E83.52 - Hypercalcemia Plan: Ordered serum calcium and intact PTH, has been referred to endocrine in the past but was a no-show. Orders: Orders AMB Hemoglobin A1c 10/21/22 Z13.9 - Encounter for screening, unspecified PTHI 11/16/22 E83.52 - Hypercalcemia Medications: Changed From insulin glargine (Lantus Solostar U-100 Insulin) 40 units subcut QAM E11.29 - Type 2 diabetes mellitus with other diabetic kidney complication To insulin glargine (Lantus Solostar U-100 Insulin) Take 40 units twice a day with breakfast and supper 40 units subcut Q12H E11.29 - Type 2 diabetes mellitus with other diabetic kidney complication Refilled empagliflozin Take 1 tablet 1 hour before breakfast 25 mg PO DAILY 30 tabs 6RF E11.65 - Type 2 diabetes mellitus with hyperglycemia, Z79.4 - lobsterman (current) use of insulin Coding Level of Care Code Est Pt Level 4 (74624) Diagnoses Type 2 diabetes mellitus with other diabetic kidney complication E11.29 Smoker unmotivated to quit F17.200 Obesity (BMI 30-39.9) E66.9 Schizoaffective disorder F25.9 Essential hypertension I10 Noncompliance with medication regimen Z91.148 Hypercalcemia E83.52
[2022-10-21 12:23] VITALS: BP 132/76; PULSE 101; O2SAT 97; BMI 33.0
== END 2022-10-21 13:26 | disposition home or self-care (01) ==
PROVIDERS: PCP Internal Medicine; Visit Provider Internal Medicine
DX: E11.29 Type 2 diabetes mellitus with other diabetic kidney complication (principal); F17.210 Nicotine dependence, cigarettes, uncomplicated; F25.9 Schizoaffective disorder, unspecified; E83.52 Hypercalcemia; I10 Essential (primary) hypertension; E66.9 Obesity, unspecified; Z91.148 Patient's other noncompliance with medication regimen for other reason
CPT/HCPCS: 83036; 99214

== ENCOUNTER 2022-11-11 13:41 | Outpatient (REF) | payer MEDICARE, MEDICAID, SELFPAY ==
[2022-11-11 14:00] LABS: MANUAL DIFF FLAG NO
[2022-11-11 14:11] LABS: Basophils Percent Auto 0.3 % (0-2); Eosinophils Absolute Auto 0.1 X10*3/uL (0.0-0.4); Eosinophils Percent Auto 0.8 % (0-4); Hematocrit 41.9 % (42.0-52.0); Hemoglobin 14.4 g/dl (14.0-18.0); Imm Gran Abs Auto 0.04 X10*3/uL (0.00-0.03); Imm Gran Pct Auto 0.5 % (0.0-0.4); Lymphocytes Absolute Auto 2.6 X10*3/uL (1.2-4.9); Lymphocytes Percent Auto 30.1 % (20-40); Mean Corpuscular HGB Conc 34.4 g/dl (31.0-36.0); Mean Corpuscular Hemoglobin 28.2 pg (27.0-33.0); Monocytes Absolute Auto 0.7 X10*3/uL (0.1-1.2); Monocytes Percent Auto 8.5 % (2-11); Neutrophils Absolute Auto 5.2 x10*3/uL (2.0-8.3); Neutrophils Percent Auto 59.8 % (45-73); Platelet Count 273 X10*3/uL (160-400); Red Blood Count 5.11 X10*6/uL (4.60-5.80); Red Cell Distribution Width 14.6 % (11.0-16.0); White Blood Count 8.7 X10*3/uL (4.8-10.8)
[2022-11-11 14:43] LABS: Estimated Average Glucose 209 mg/dL; Hemoglobin A1c % 8.9 % (<6.0)
[2022-11-11 14:48] LABS: Alanine Aminotransferase 15 U/L (0-40); Anion Gap 14 (12-20); Aspartate Amino Transferase 14 U/L (5-37); Blood Urea Nitrogen 30 mg/dL (9-16); Calcium 10.6 mg/dL (8.4-10.2); Carbon Dioxide 23 mmol/L (22-29); Chloride 102 mmol/L (96-108); Cholesterol 213 mg/dL (<200); Estimated Glomerular Filt Rate 25; Glucose Fasting 155 mg/dL (60-99); HDL Cholesterol 29 mg/dL (>40); Potassium 4.2 mmol/L (3.3-5.1); Sodium 135 mmol/L (135-145); Triglycerides 491 mg/dL (<150)
[2022-11-11 15:42] LABS: Creatinine Urine 16.18 mg/dL; Microalbum/Creatinine Ratio Ur 284.3 ug/mg cr (<30)
[2022-11-13 23:58] LABS: Calcium (PTHI) 10.3 mg/dL (8.6-10.3); PTHI 44 pg/mL (16-77)
== END 2022-11-11 13:42 | disposition home or self-care (01) ==
LOC: HO.LABR 13:41
PROVIDERS: PCP Internal Medicine; Visit Provider Clinical Nurse Specialist Psychiatric/Mental Health, Adult
DX: E11.29 Type 2 diabetes mellitus with other diabetic kidney complication (principal); E78.2 Mixed hyperlipidemia; I10 Essential (primary) hypertension; E83.52 Hypercalcemia; Z79.899 Other long term (current) drug therapy
CPT/HCPCS: 36415; 80048; 80061; 82043; 82570; 83036; 83970; 84450; 84460; 85025

== ENCOUNTER 2022-11-24 13:00 | Outpatient (AMB) | payer MEDICARE, MEDICAID, SELFPAY ==
[2022-11-24 13:02] VITALS: BP 130/88; PULSE 86; O2SAT 96; BMI 33.8
--- NOTE | 2022-11-24 13:02 | A.OFFPC_ITS ---
Vital Signs 11/24/22 13:02 Height 5 ft 8 in Weight 222 lb 4 oz BMI 33.8 BP 130/88 Blood Pressure Location Rt brachial Position Sitting Pulse 86 Pulse Source Pulse Oximeter Pulse Oximetry (%) 96 Oxygen Delivery Method Room Air Intake Visit Reasons: 1 month follow up Allergies No Known Allergies Allergy (Verified 11/24/22 13:28) Medication List - Last Reconciled 11/24/22 by Rowena Cedeno MD acetaminophen (Tylenol Extra Strength) 500 mg PO Q12H PRN albuterol sulfate 90 mcg/actuation 2 puffs inhalation Q4-6H PRN Anoro Ellipta 62.5-25 mcg/actuation (umeclidinium-vilanterol) 1 ea PO DAILY NS clozapine 200 mg PO BEDTIME docusate sodium 100 mg PO BID PRN empagliflozin 25 mg PO DAILY fenofibrate 160 mg PO DAILY ferrous fumarate 324 mg PO DAILY haloperidol 5 mg PO BID insulin glargine (Lantus Solostar U-100 Insulin) 50 units subcut QAM lorazepam 1 mg PO BID losartan 25 mg PO DAILY pen needle, diabetic (Comfort EZ Pen [place]) inject insulin twice daily Trulicity (dulaglutide) 0.75 mg (0.5 mL) subcut QWEEK NS Tobacco use date assessed: 11/24/22 Dental Screening Dental Screen Date: 11/24/22 Did you have a dental visit in the last 12 months?: Yes Did you have a dental problem in the last 6 months where you did not have access to dental care?: No Was dental information given to patient?: Patient has dentist HPI 1 month follow up HPI Details 42-year-old male here today for follow-u p on his diabetes mellitus, currently on Trulicity 0.75 mg once a week, Jardiance 25 mg in the morning and Lantus 50 units twice a day. Patient however has been having hypoglycemic episodes, states that his sugar this morning was 68. He was advised to just take Lantus in the morning but has not yet made the change. He also has a very poor diet, gets meals on wheels, does not shop, eats a lot of canned food, had spaghetti 0 with meat balls for breakfast this morning, blood sugar after eating went up to 162 mg/dl. He was referred to endocrine for follow-up, but has not yet been contacted regarding an appointment. He also has been referred to hospital educator, but patient canceled his appointment. His latest fasting labs showed markedly elevated triglycerides, hemoglobin A1c has gone down to 8.9%, serum GFR is down to 25. He has been referred and seen by Nephrology before, but patient refusing to go to any future appointments . Has been seeing his eye doctor for her retinopathy screening and his foot doctor swell on regular basis. Advised for him to get his flu shot and his COVID booster but patient declined getting both. [facility] Medical History (Updated 11/25/22 @ 03:06 by Rowena Cedeno MD) CKD (chronic kidney disease) stage 4, GFR 15-29 ml/min Type 2 diabetes mellitus with complication, with long-term current use of insulin Uncontrolled diabetes mellitus with hyperglycemia Hypercalcemia Noncompliance with medication regimen Rash and nonspecific skin eruption Tremor Vitamin D deficiency Mixed dyslipidemia Restrictive airway disease Type 2 diabetes mellitus with other diabetic kidney complication Solitary pulmonary nodule on lung CT Smoker unmotivated to quit Obesity (BMI 30-39.9) Schizoaffective disorder Essential hypertension Surgical History No pertinent past surgical history Family History Father Unknown family medical history Mother Unknown family medical history Brother No problems noted. Sister No problems noted. Social History Housing: Other Housing Other:: residential Alcohol intake: never Patient Tobacco Use Status: Current everyday Tobacco user Cigarette Packs Per Day: 2 e-Cigarette/Vaping Use: Never Used service: No Current occupational status: disabled Cognitive needs: No Hearing needs: No Vision needs: Yes Questionnaire Thrive Questionnaire Date Thrive assessed: 10/21/22 AUDIT C Alcohol Use Questionnaire (AUDIT-C) 1. How often do you have a drink containing alcohol?: Never 3. How often do you have six or more drinks on one occasion?: Never Total Score: 0 Score Reviewed/Action Taken: Yes WILBERTO-7 AMB Questionnaire WILBERTO-7 Date WILBERTO - 7 assessed: 01/15/22 Source: Developed by Drs. Mauro Lunsford, Kimmie B.W. Remy Rizvi and colleagues, with an educational dale from [employer]. Review of Systems Const Denies headache(s) and Reports lethargy Eyes Denies change in vision ENT Denies vertigo, Denies headache(s), Denies nasal congestion and Denies post nasal drip Card Denies chest pain, Denies chest pain with activity, Denies pedal edema, Denies irregular heart rhythm, Denies dyspnea and Denies orthopnea Resp Denies cough, Denies dyspnea and Denies wheezing GI Denies abdominal pain and Denies heartburn Denies dysuria, Reports urinary frequency, Denies urinary incontinence and Denies urinary urgency Musc Denies myalgias, Denies arthralgias and Denies joint swelling Neuro Reports behavioral changes, Denies vertigo, Denies headache(s) and Denies Sensory deficit (Neuro) Psych Reports behavioral changes and Reports mood swings Endo Reports polydipsia and Reports polyuria Jimmy/Lymph Denies easy bruising Aller/Immun Denies seasonal rhinorrhea and Denies wheezing Physical exam (Primary Care) Vital Signs: Last Vital Signs Pulse 86 11/24/22 13:02 BP 130/88 11/24/22 13:02 Pulse Ox 96 11/24/22 13:02 Oxygen Delivery Method Room Air 11/24/22 13:02 BMI result Body Mass Index 33.8 Tobacco/Smoking Status: Tobacco use Status Tobacco use date assessed 11/24/22 11/24/22 13:03 Patient Tobacco Use Status Current everyday Tobacco 11/24/22 13:03 e-Cigarette/Vaping Use Never Used 11/24/22 13:03 Are you ready to quit: No Thrive Assessment: Date of Thrive Assessment Date Thrive assessed 10/21/22 11/24/22 13:03 Const Other: Superior Court Judge present General: cooperative, comfortable, no acute distress and other (unkempt) Orientation/consciousness: patient oriented x3 HENMT Head: Yes normocephalic Ears: hearing grossly normal bilaterally General nose exam: Normal external nose present Face and sinus: Yes face symmetric Mouth: Normal oral and palatal mucosa present and moist mucous membranes Teeth and gingiva: poor dentition Eyes General: appearance normal, both eyes and all related structures Neck Neck: Yes full ROM, Yes no lymphadenopathy and Yes supple Resp Effort & Inspection: normal respiratory effort and able to speak in complete sentences Auscultation: clear to auscultation bilaterally Cardio Rate: regular rate Rhythm: regular rhythm Heart sounds: S1 normal heart sound present and S2 normal heart sound present GI Inspection: Yes obesity Palpation (GI): Soft to palpation, nontender, no guarding and no masses General: Yes no CVA tenderness Back/Spine/Pelvis Back: no CVA tenderness and No back tenderness Neuro General: patient oriented x3, gait normal, moves all extremities, Normal light touch and pain sensation, no focal motor deficits and CN's II-XI intact bilaterally Gait exam (Neuro): Normal gait present Sensory Exam: No Sensory deficit (Neuro) Extrem Other: Thickened and toenails bilaterally, peripheral pulses full and equal, no pedal edema noted, plantar calluses bilateral General: Yes full ROM, Yes no joint enlargement, Yes no pedal edema and Yes normal gait Results Reviewed Results Reviewed: ENTERED: 11/11/22-[address] [facility] [address]: Rui Dutta OPEN HEARTH STOCKYARD SUPERVISOR ORDERED: Met Prof Fast, AST, ALT, Lipid Panel Test Result Flag Reference Site Sodium 135 135-145 mmol/L Potassium 4.2 3.3-5.1 mmol/L CL 102 96-108 mmol/L CO2 23 22-29 mmol/L Gap 14 12-20 BUN 30 H 9-16 mg/dL Creat 2.83 H 0.5-1.4 mg/dL EGFR 25 NOTE: For -[place] individuals, multiply the result by 1.210. Chronic Kidney Disease: Estimated GFR < 60 mL/min/1.73m2 Severe Kidney Disease: Estimated GFR < 15 mL/min/1.73m2 FBS 155 H 60-99 mg/dL A fasting glucose of 126 mg/dl or greater on more than one occasion is considered diagnostic of diabetes. CA 10.6 H 8.4-10.2 mg/dL AST (GOT) 14 5-37 U/L ALT (GPT) 15 0-40 U/L Triglyceride 491 H <150 mg/dL Desirable Triglyceride: less than 150 mg/dL Borderline High Triglyceride 150-199 mg/dL High Triglyceride: 200-499 mg/dL Very High Triglyceride: greater than or equal to 5OO mg/dL Cholesterol 213 H <200 mg/dL Desirable Cholesterol: less than 200 mg/dL Borderline High Cholesterol: 200-239 mg/dL High Cholesterol: greater than 239 mg/dL LDL Calculated Test not performed <100 mg/dL Unable to calculate the LDL. The formula of Friedwald, Harrington, and Emanuel is only valid if the triglycerides are less than 400 mg/dl. HDL 29 L >40 mg/dL Desirable HDL: greater than 40 mg/dL Note: This HDL assay may give artificially low results in patients with liver disease. Laboratory Tests 11/11/22 13:58 Estimat Average Glucose 209 Hemoglobin A1c % 8.9 H Assessment and Plan Assessment & Plan (1) Uncontrolled diabetes mellitus with hyperglycemia: Code(s): E11.65 - Type 2 diabetes mellitus with hyperglycemia Qualifiers: Diabetes mellitus type: type 2 Qualified Code(s): E11.65 - Type 2 diabetes mellitus with hyperglycemia Plan: Continue with Trulicity and Jardiance, decrease Lantus to 50 units in am with breakfast will refer back again to nurse navigator for diabetes education and help with diet. Advised to keep but record of blood sugar readings 3 times a day before meals keep a record of the readings and send a log to us for review after a week. Up-to-date with his diabetes retinopathy screening and foot exam. Has diabetic nephropathy, refusing to go follow-up with nephrology. Reinforced importance of getting blood sugar and cholesterol and blood pressure controlled. Does not want to get flu or COVID vaccine booster (2) Mixed dyslipidemia: Code(s): E78.2 - Mixed hyperlipidemia Plan: Continue fenofibrate again emphasized importance of getting blood sugar under control (3) CKD (chronic kidney disease) stage 4, GFR 15-29 ml/min: Code(s): N18.4 - Chronic kidney disease, stage 4 (severe) Plan: Was being seen by Nephrology poor control of diabetes, patient refusing to go follow-up with his cardiology manager. Inform patient that if he does not get this treated, he will end up with renal failure and will need dialysis , but patient still refusing to go. (4) Essential hypertension: Code(s): I10 - Essential (primary) hypertension Plan: Blood pressure within normal limits, continued on losartan Orders: Orders Hemoglobin A1c 01/29/23 E11.65 - Type 2 diabetes mellitus with hyperglycemia, E78.2 - Mixed hyperlipidemia, N18.4 - Chronic kidney disease, stage 4 (severe) Lipid Panel 01/29/23 E11.65 - Type 2 diabetes mellitus with hyperglycemia, E78.2 - Mixed hyperlipidemia, N18.4 - Chronic kidney disease, stage 4 (severe) Comprehensive [place]. Panel Fast 01/29/23 E11.65 - Type 2 diabetes mellitus with hyperglycemia, E78.2 - Mixed hyperlipidemia, N18.4 - Chronic kidney disease, stage 4 (severe) Coding Level of Care Code Est Pt Level 4 (05965) Diagnoses Uncontrolled type 2 diabetes mellitus with hyperglycemia E11.65 Diabetes mellitus type: type 2 Mixed dyslipidemia E78.2 CKD (chronic kidney disease) stage 4, GFR 15-29 ml/min N18.4 Essential hypertension I10
== END 2022-11-24 14:36 | disposition home or self-care (01) ==
PROVIDERS: PCP Internal Medicine; Visit Provider Internal Medicine
DX: E11.65 Type 2 diabetes mellitus with hyperglycemia (principal); I12.9 Hypertensive chronic kidney disease with stage 1 through stage 4 chronic kidney disease, or unspecified chronic kidney disease; E78.2 Mixed hyperlipidemia; N18.4 Chronic kidney disease, stage 4 (severe)
CPT/HCPCS: 99214

== ENCOUNTER 2022-11-30 08:41 | Outpatient (REF) | payer MEDICARE, MEDICAID, SELFPAY ==
[2022-11-30 11:18] LABS: MANUAL DIFF FLAG NO
[2022-11-30 11:56] LABS: Basophils Percent Auto 0.4 % (0-2); Hematocrit 41.4 % (42.0-52.0); Hemoglobin 14.2 g/dl (14.0-18.0); Imm Gran Abs Auto 0.04 X10*3/uL (0.00-0.03); Imm Gran Pct Auto 0.5 % (0.0-0.4); Lymphocytes Absolute Auto 2.2 X10*3/uL (1.2-4.9); Lymphocytes Percent Auto 26.4 % (20-40); Mean Corpuscular HGB Conc 34.3 g/dl (31.0-36.0); Mean Corpuscular Hemoglobin 29.2 pg (27.0-33.0); Mean Corpuscular Volume 85.2 fL (80.0-98.0); Mean Platelet Volume 10.2 fL (9.4-12.4); Monocytes Absolute Auto 0.7 X10*3/uL (0.1-1.2); Monocytes Percent Auto 8.1 % (2-11); Neutrophils Absolute Auto 5.5 x10*3/uL (2.0-8.3); Neutrophils Percent Auto 64.6 % (45-73); Platelet Count 256 X10*3/uL (160-400); Red Blood Count 4.86 X10*6/uL (4.60-5.80); White Blood Count 8.5 X10*3/uL (4.8-10.8)
== END 2022-11-30 08:42 | disposition home or self-care (01) ==
LOC: HO.HMGCLR 08:41
PROVIDERS: PCP Internal Medicine; Visit Provider Clinical Nurse Specialist Psychiatric/Mental Health, Adult
DX: Z79.899 Other long term (current) drug therapy (principal)
CPT/HCPCS: 36415; 85025

== ENCOUNTER 2022-12-23 10:59 | Outpatient (AMB) | payer MEDICARE, MEDICAID, SELFPAY ==
[2022-12-23 11:01] VITALS: BP 132/87; PULSE 114; O2SAT 98; BMI 34.2
--- NOTE | 2022-12-23 11:01 | MHC.OFFVIS ---
Intake Vital Signs 12/23/22 11:01 Height 5 ft 8 in Weight 224 lb 13.944 oz BMI 34.2 BP 132/87 Blood Pressure Location Lt brachial Position Sitting Pulse 114 H Pulse Source Doppler Pulse Oximetry (%) 98 Oxygen Delivery Method Room Air Intake Visit Reasons: Emphysema of lung Allergies No Known Allergies Allergy (Verified 12/23/22 11:04) HPI Emphysema of lung HPI Details 42-year-old gentleman, active 40+ pack-year smoker with underlying schizophrenia followed for emphysema and previously stable bilateral pulmonary nodules up to 9 mm.? Patient has not completed his follow-up CT chest. He complains of mild chest congestion, though he denies an acute exacerbation. He has stopped using his Anoro. [facility] Medical History (Updated 11/25/22 @ 03:06 by Rowena Cedeno MD) CKD (chronic kidney disease) stage 4, GFR 15-29 ml/min Type 2 diabetes mellitus with complication, with long-term current use of insulin Uncontrolled diabetes mellitus with hyperglycemia Hypercalcemia Noncompliance with medication regimen Rash and nonspecific skin eruption Tremor Vitamin D deficiency Mixed dyslipidemia Restrictive airway disease Type 2 diabetes mellitus with other diabetic kidney complication Solitary pulmonary nodule on lung CT Smoker unmotivated to quit Obesity (BMI 30-39.9) Schizoaffective disorder Essential hypertension Surgical History No pertinent past surgical history Family History Father Unknown family medical history Mother Unknown family medical history Brother No problems noted. Sister No problems noted. Social History Housing: Other Housing Other:: senior care Alcohol intake: never Patient Tobacco Use Status: Current everyday Tobacco user Cigarette Packs Per Day: 2 e-Cigarette/Vaping Use: Never Used service: No Current occupational status: disabled Cognitive needs: No Hearing needs: No Vision needs: Yes Review of Systems Const Denies daytime sleepiness, Denies excessive sweating, Denies fatigue, Denies fever(s), Denies lethargy, Denies malaise, Denies night sweats, Denies snoring and Denies weight loss Eyes Denies blurry vision and Denies itchy eyes ENT Denies nasal congestion, Denies post nasal drip, Denies sinus pain, Denies sinus pressure and Denies other ( Thrush) Card Denies chest pain, Denies pedal edema, Denies dyspnea, Denies orthopnea and Denies paroxysmal nocturnal dyspnea Resp Reports cough, Denies hemoptysis, Denies excessive phlegm production, Denies dyspnea, Denies snoring and Denies wheezing GI Denies abdominal pain and Denies heartburn Musc Denies myalgias, Denies arthralgias and Denies joint swelling Skin/Breast Denies rash Neuro Denies memory loss and Denies seizure-like activity Psych Denies abnormal sleep pattern, Denies anxiety and Denies memory loss Endo Denies excessive sweating, Denies fatigue and Denies heat intolerance Jimmy/Lymph Denies easy bruising Aller/Immun Denies itchy eyes, Denies seasonal rhinorrhea and Denies wheezing Physical Exam Vital Signs: Last Vital Signs Pulse 114 H 12/23/22 11:01 BP 132/87 12/23/22 11:01 Pulse Ox 98 12/23/22 11:01 Oxygen Delivery Method Room Air 12/23/22 11:01 BMI result Body Mass Index 34.2 Const General: no acute distress and alert Nutritional Appearance: not obese Orientation/consciousness: Other orientation findings ( oriented) HEENT Head: Yes atraumatic Eyes General: appearance normal, both eyes and all related structures Sclerae: sclerae normal EOM: EOMs intact bilaterally Neck Neck: Yes supple Lymphatic: no lymphadenopathy noted Resp Effort & Inspection: normal respiratory effort and no use of accessory muscles Auscultation: clear to auscultation bilaterally Cardio Rate: regular rate Rhythm: regular rhythm Heart sounds: no gallops, no murmurs and no rubs Skin General skin exam: other ( warm) Extrem General: No clubbing, No cyanosis and No edema Assessment & Plan Assessment & Plan (1) Pulmonary nodules: Code(s): R91.8 - Other nonspecific abnormal finding of lung field Plan: patient refused 2nd follow-up CT chest. Previously stable 9 mm and under pulmonary nodules. Follow-up CT chest is reordered. Patient has been advised on benefits of completed follow-up CT chest. (2) Emphysema of lung: Code(s): J43.9 - Emphysema, unspecified Plan: Patient has discontinued his Anoro and now is complaining of a chronic cough and some wheezing. Will restart on Anoro. Orders: Orders CT chest wo IV con Today R91.8 - Other nonspecific abnormal finding of lung field Medications: Changed From Anoro Ellipta 62.5-25 mcg/actuation (umeclidinium-vilanterol) 1 ea PO DAILY 60 ea 0RF NS To Anoro Ellipta 62.5-25 mcg/actuation (umeclidinium-vilanterol) 1 ea PO DAILY 1 ea 6RF 30 days NS Coding Level of Care Code Est Pt Level 4 (67132) Diagnoses Pulmonary nodules R91.8 Emphysema of lung J43.9
== END 2022-12-23 11:21 | disposition home or self-care (01) ==
PROVIDERS: PCP Internal Medicine; Visit Provider Internal Medicine Pulmonary Disease
DX: R91.8 Other nonspecific abnormal finding of lung field (principal); J43.9 Emphysema, unspecified
CPT/HCPCS: 99214

== ENCOUNTER → 2022-12-23 10:59 | Outpatient (BNVA) | payer MEDICARE, MEDICAID, SELFPAY | PROVIDERS: PCP Internal Medicine; Visit Provider Internal Medicine Pulmonary Disease | DX: R91.8 Other nonspecific abnormal finding of lung field (principal); J43.9 Emphysema, unspecified | CPT/HCPCS: 99212 ==

== ENCOUNTER 2022-12-31 09:45 | Outpatient (REF) | payer MEDICARE, MEDICAID, SELFPAY ==
[2022-12-31 13:09] LABS: MANUAL DIFF FLAG NO
[2022-12-31 13:24] LABS: Basophils Percent Auto 0.4 % (0-2); Eosinophils Percent Auto 0.1 % (0-4); Hematocrit 43.5 % (42.0-52.0); Hemoglobin 15.1 g/dl (14.0-18.0); Imm Gran Abs Auto 0.04 X10*3/uL (0.00-0.03); Imm Gran Pct Auto 0.5 % (0.0-0.4); Lymphocytes Absolute Auto 1.4 X10*3/uL (1.2-4.9); Lymphocytes Percent Auto 17.1 % (20-40); Mean Corpuscular HGB Conc 34.7 g/dl (31.0-36.0); Mean Corpuscular Hemoglobin 29.3 pg (27.0-33.0); Mean Corpuscular Volume 84.3 fL (80.0-98.0); Mean Platelet Volume 10.2 fL (9.4-12.4); Monocytes Absolute Auto 0.5 X10*3/uL (0.1-1.2); Monocytes Percent Auto 6.4 % (2-11); Neut%MD 75.5 %; Neutrophils Absolute Auto 6.1 x10*3/uL (2.0-8.3); Neutrophils Percent Auto 75.5 % (45-73); Platelet Count 248 X10*3/uL (160-400); Red Blood Count 5.16 X10*6/uL (4.60-5.80); Red Cell Distribution Width 14.6 % (11.0-16.0)
== END 2022-12-31 09:46 | disposition home or self-care (01) ==
LOC: HO.HMGCLR 09:45
PROVIDERS: Visit Provider Clinical Nurse Specialist Psychiatric/Mental Health, Adult
DX: Z79.899 Other long term (current) drug therapy (principal)
CPT/HCPCS: 36415; 85025

== ENCOUNTER 2023-01-26 11:02 | Outpatient (REF) | payer MEDICARE, MEDICAID, SELFPAY ==
--- NOTE | ~2023-01-26 | CT_ITS ---
EXAMINATION: CT CHEST WITHOUT CONTRAST CLINICAL INFORMATION: Pulmonary nodularity. COMPARISON: 11/11/2021 TECHNIQUE: Multidetector volumetric CT imaging of the chest was done. Axial MIP volume rendering provided. Sagittal and coronal reformatted images were obtained. This CT examination was performed using dose optimization techniques as appropriate, variously including the following: *Automated exposure control *Adjustment of mA and/or kV according to patient size (this includes techniques or standardized protocols for targeted exams where dose is matched to indication/reason for exam; i.e. extremities or head) *Use of iterative reconstruction technique DLP: 326 mGy-cm FINDINGS: The thoracic inlet is comparable to previous. The axillary region once again shows some prominent adenopathy of uncertain etiology. Previously it measured 1.1 cm short axis on the same cut measures 1.4 cm short axis. This is on the right. On the left another node measuring 1.4 cm short axis previously 1 cm short axis. Centrally mildly prominent nodes are felt to be grossly stable. This is a noncontrast study but the hilar regions I feel are comparable to previous. Imaging of the lung soto. Right lung: Nodule abutting the major fissure in the right lung measured previously at 9 mm measures approximately a centimeter. Image 300 series 5. Stable-appearing 6 mm nodule on image 157. Stable-appearing 4 mm nodule on image 150. Stable-appearing peripheral nodule on image 165. 4 mm. Other small areas of micronodularity are noted on the right. Left lung: Again scattered areas of micronodularity. Nodule described in left midlung laterally is not as well seen here. No suspicious increase. New 2 mm nodule on image 176 left upper lobe. New 2 mm nodule left upper lobe anterior image 135. Review of the bone windows does not demonstrate evidence for bony lesion. CT/CT chest wo IV con IMPRESSION: Once again some prominent axillary adenopathy here and several nodes I believe show some mild increase. Underlying malignancy would need to be considered versus inflammatory etiology. Consider PET/CT at this time to further evaluate. The largest nodule in the right lung which is abutting the fissure appears slightly larger than previous at 1 cm. Again PET/CT would be recommended at this time for full evaluation Other small nodules are described some of which are stable and other small new nodules are noted. Again these may well be inflammatory. Early malignancy cannot be excluded.
[2023-01-26 11:56] LABS: MANUAL DIFF FLAG NO
[2023-01-26 12:05] LABS: Basophils Percent Auto 0.3 % (0-2); Eosinophils Percent Auto 0.2 % (0-4); Hemoglobin 15.1 g/dl (14.0-18.0); Imm Gran Abs Auto 0.06 X10*3/uL (0.00-0.03); Imm Gran Pct Auto 0.6 % (0.0-0.4); Lymphocytes Absolute Auto 2.3 X10*3/uL (1.2-4.9); Lymphocytes Percent Auto 24.6 % (20-40); Mean Corpuscular HGB Conc 35.1 g/dl (31.0-36.0); Mean Corpuscular Hemoglobin 28.8 pg (27.0-33.0); Mean Corpuscular Volume 81.9 fL (80.0-98.0); Monocytes Absolute Auto 0.7 X10*3/uL (0.1-1.2); Monocytes Percent Auto 7.7 % (2-11); Neut%MD 66.6 %; Neutrophils Absolute Auto 6.2 x10*3/uL (2.0-8.3); Neutrophils Percent Auto 66.6 % (45-73); Platelet Count 243 X10*3/uL (160-400); Red Blood Count 5.25 X10*6/uL (4.60-5.80); Red Cell Distribution Width 14.1 % (11.0-16.0); WBCANC 9.3 X10*3/uL; White Blood Count 9.3 X10*3/uL (4.8-10.8)
== END 2023-01-26 11:03 | disposition home or self-care (01) ==
LOC: HO.CT 11:02
PROVIDERS: Absent Provider Clinical Nurse Specialist Psychiatric/Mental Health, Adult; PCP Internal Medicine; Visit Provider Internal Medicine Pulmonary Disease
DX: R91.8 Other nonspecific abnormal finding of lung field (principal); Z79.899 Other long term (current) drug therapy
CPT/HCPCS: 36415; 71250; 85025

== ENCOUNTER 2023-01-28 11:38 | Outpatient (AMB) | payer MEDICARE, MEDICAID, SELFPAY ==
[2023-01-28 11:40] VITALS: BP 138/84; PULSE 104; O2SAT 98; BMI 34.2
--- NOTE | 2023-01-28 11:40 | A.OFFVIS_ITS ---
Intake Vital Signs 01/28/23 11:40 Height 5 ft 8 in Weight 224 lb 13.944 oz BMI 34.2 BP 138/84 Blood Pressure Location Rt brachial Position Sitting Pulse 104 H Pulse Source Doppler Pulse Oximetry (%) 98 Oxygen Delivery Method Room Air Intake Visit Reasons: Emphysema Allergies No Known Allergies Allergy (Verified 01/28/23 11:41) HPI Emphysema HPI Details 42-year-old gentleman, active 40+ pack-y ear smoker with underlying schizophrenia followed for emphysema and previously stable bilateral pulmonary nodules up to 9 mm.? Patient has completed his follow-up CT chest, however resultant not available for this visit. He has been using Anoro with improvement in his cough. Today he does complain of nasal congestion before bedtime. [facility] Medical History (Updated 01/28/23 @ 11:53 by Benny Hartmann MD) CKD (chronic kidney disease) stage 4, GFR 15-29 ml/min Type 2 diabetes mellitus with complication, with long-term current use of insulin Uncontrolled diabetes mellitus with hyperglycemia Hypercalcemia Noncompliance with medication regimen Rash and nonspecific skin eruption Tremor Vitamin D deficiency Mixed dyslipidemia Restrictive airway disease Type 2 diabetes mellitus with other diabetic kidney complication Solitary pulmonary nodule on lung CT Smoker unmotivated to quit Obesity (BMI 30-39.9) Schizoaffective disorder Essential hypertension Surgical History No pertinent past surgical history Family History Father Unknown family medical history Mother Unknown family medical history Brother No problems noted. Sister No problems noted. Social History Housing: Other Housing Other:: residential Alcohol intake: never Patient Tobacco Use Status: Current everyday Tobacco user Cigarette Packs Per Day: 2 e-Cigarette/Vaping Use: Never Used service: No Current occupational status: disabled Cognitive needs: No Hearing needs: No Vision needs: Yes Review of Systems Const Denies daytime sleepiness, Denies excessive sweating, Denies fatigue, Denies fever(s), Denies lethargy, Denies malaise, Denies night sweats, Denies snoring and Denies weight loss Eyes Denies blurry vision and Denies itchy eyes ENT Reports nasal congestion, Denies post nasal drip, Denies sinus pain, Denies sinus pressure and Denies other ( Thrush) Card Denies chest pain, Denies pedal edema, Denies dyspnea, Denies orthopnea and Denies paroxysmal nocturnal dyspnea Resp Denies cough, Denies hemoptysis, Denies excessive phlegm production, Denies dyspnea, Denies snoring and Denies wheezing GI Denies abdominal pain and Denies heartburn Musc Denies myalgias, Denies arthralgias and Denies joint swelling Skin/Breast Denies rash Neuro Denies memory loss and Denies seizure-like activity Psych Denies abnormal sleep pattern, Denies anxiety and Denies memory loss Endo Denies excessive sweating, Denies fatigue and Denies heat intolerance Jimmy/Lymph Denies easy bruising Aller/Immun Denies itchy eyes, Denies seasonal rhinorrhea and Denies wheezing Physical Exam Vital Signs: Last Vital Signs Pulse 104 H 01/28/23 11:40 BP 138/84 01/28/23 11:40 Pulse Ox 98 01/28/23 11:40 Oxygen Delivery Method Room Air 01/28/23 11:40 BMI result Body Mass Index 34.2 Const General: no acute distress and alert Nutritional Appearance: not obese Orientation/consciousness: Other orientation findings ( oriented) HEENT Head: Yes atraumatic Eyes General: appearance normal, both eyes and all related structures Sclerae: sclerae normal EOM: EOMs intact bilaterally Neck Neck: Yes supple Lymphatic: no lymphadenopathy noted Resp Effort & Inspection: normal respiratory effort and no use of accessory muscles Auscultation: clear to auscultation bilaterally Cardio Rate: regular rate Rhythm: regular rhythm Heart sounds: no gallops, no murmurs and no rubs Skin General skin exam: other ( warm) Extrem General: No clubbing, No cyanosis and No edema Assessment & Plan Assessment & Plan (1) Emphysema of lung: Code(s): J43.9 - Emphysema, unspecified Plan: Cough improved on Anoro. Continue current regimen. Including albuterol MDI. (2) Pulmonary nodules: Code(s): R91.8 - Other nonspecific abnormal finding of lung field Plan: Follow-up CT chest results a pending. Upon my review of the images, no worrisome nodule. (3) Nasal congestion: Code(s): R09.81 - Nasal congestion Plan: Will start on empiric Flonase. Medications: New fluticasone propionate 50 mcg/actuation (Flonase Allergy Relief) administer into each nostril 1 spray intranasal BEDTIME 16 grams 6RF 30 days Coding Level of Care Code Est Pt Level 4 (88569) Diagnoses Emphysema of lung J43.9 Pulmonary nodules R91.8 Nasal congestion R09.81
== END 2023-01-28 11:53 | disposition home or self-care (01) ==
PROVIDERS: PCP Internal Medicine; Visit Provider Internal Medicine Pulmonary Disease
DX: J43.9 Emphysema, unspecified (principal); R91.8 Other nonspecific abnormal finding of lung field; R09.81 Nasal congestion
CPT/HCPCS: 99214

== ENCOUNTER → 2023-01-28 11:38 | Outpatient (BNVA) | payer MEDICARE, MEDICAID, SELFPAY | PROVIDERS: PCP Internal Medicine; Visit Provider Internal Medicine Pulmonary Disease | DX: R91.8 Other nonspecific abnormal finding of lung field (principal); J43.9 Emphysema, unspecified; R09.81 Nasal congestion | CPT/HCPCS: 99212 ==

== ENCOUNTER 2023-01-29 08:03 | Outpatient (REF) | payer MEDICARE, MEDICAID, SELFPAY ==
[2023-01-29 11:45] LABS: Estimated Average Glucose 240 mg/dL
[2023-01-29 12:07] LABS: Alanine Aminotransferase 19 U/L (0-40); Alkaline Phosphatase 85 U/L (39-117); Anion Gap 14 (12-20); Aspartate Amino Transferase 18 U/L (5-37); Bilirubin Total 0.1 mg/dL (0.0-1.0); Blood Urea Nitrogen 30 mg/dL (9-16); Calcium 10.2 mg/dL (8.4-10.2); Carbon Dioxide 22 mmol/L (22-29); Chloride 103 mmol/L (96-108); Cholesterol 258 mg/dL (<200); Estimated Glomerular Filt Rate 35; Glucose Fasting 238 mg/dL (60-99); HDL Cholesterol 28 mg/dL (>40); Potassium 4.2 mmol/L (3.3-5.1); Sodium 135 mmol/L (135-145); Total Protein 7.9 g/dL (6.5-8.0); Triglycerides 658 mg/dL (<150)
== END 2023-01-29 08:04 | disposition home or self-care (01) ==
LOC: HO.HMGCLDS 08:03
PROVIDERS: PCP Internal Medicine; Visit Provider Internal Medicine
DX: E11.65 Type 2 diabetes mellitus with hyperglycemia (principal); N18.4 Chronic kidney disease, stage 4 (severe); E78.2 Mixed hyperlipidemia
CPT/HCPCS: 36415; 80053; 80061; 83036

== ENCOUNTER 2023-02-01 16:14 | Outpatient (AMB) | payer MEDICARE, MEDICAID, SELFPAY ==
--- NOTE | 2023-02-01 16:04 | A.OFFPC_ITS ---
Intake Visit Reasons: discuss BS with animal care taker/[phone] Intake Note: discuss pt's blood sugar house parent name is Lacell Allergies No Known Allergies Allergy (Verified 02/17/23 12:54) Medication List - Last Reconciled 02/01/23 by Rowena Cedeno MD acetaminophen (Tylenol Extra Strength) 500 mg PO Q12H PRN albuterol sulfate 90 mcg/actuation 2 puffs inhalation Q4-6H clozapine 200 mg PO BEDTIME docusate sodium 100 mg PO BID PRN empagliflozin 25 mg PO DAILY fenofibrate 160 mg PO DAILY ferrous fumarate 324 mg PO DAILY fluticasone propionate 50 mcg/actuation (Flonase Allergy Relief) 1 spray intranasal BEDTIME 30 days haloperidol 5 mg PO BID insulin glargine (Lantus Solostar U-100 Insulin) 50 units (0.5 mL) subcut QAM lorazepam 1 mg PO BID losartan 25 mg PO DAILY pen needle, diabetic (Comfort EZ [place]) inject insulin twice daily Trulicity (dulaglutide) 0.75 mg (0.5 mL) subcut QWEEK NS umeclidinium-vilanterol 62.5-25 mcg/actuation (Anoro Ellipta) 1 ea PO DAILY Tobacco use date assessed: 02/01/23 Dental Screening Dental Screen Date: 02/01/23 Did you have a dental visit in the last 12 months?: Yes Did you have a dental problem in the last 6 months where you did not have access to dental care?: No Was dental information given to patient?: Patient has dentist HPI discuss BS with animal care taker/[phone] HPI Details Tele health visit made with patient and caregiver regarding results of recent fasting labs. He has diabetes mellitus, nephropathy, currently taking Trulicity 0.75 mg once a week and empagliflozin 25 mg daily in a.m.. Hemoglobin A1c on recent labs came back at 10%, higher than last check. With an average glucose at 240 mg in the last 3 months. His fasting lipids also showed marked elevation in his triglycerides, unable to obtain LDL cholesterol. Currently on fenofibrate. Patient as per caregiver has not really been following recommended diet, snacks all the time, and no exercise at all. He also has not been checking his blood sugar at home. [facility] Medical History (Updated 02/17/23 @ 13:15 by Rowena Cedeno MD) Type 2 diabetes mellitus with obesity CKD (chronic kidney disease) stage 4, GFR 15-29 ml/min Type 2 diabetes mellitus with complication, with long-term current use of insulin Uncontrolled diabetes mellitus with hyperglycemia Hypercalcemia Noncompliance with medication regimen Rash and nonspecific skin eruption Tremor Vitamin D deficiency Mixed dyslipidemia Restrictive airway disease Type 2 diabetes mellitus with other diabetic kidney complication Solitary pulmonary nodule on lung CT Smoker unmotivated to quit Obesity (BMI 30-39.9) Schizoaffective disorder Essential hypertension Surgical History No pertinent past surgical history Family History Father Unknown family medical history Mother Unknown family medical history Brother No problems noted. Sister No problems noted. Social History Housing: Other Housing Other:: intermediate Alcohol intake: never Patient Tobacco Use Status: Current everyday Tobacco user Cigarette Packs Per Day: 2 e-Cigarette/Vaping Use: Never Used service: No Current occupational status: disabled Cognitive needs: No Hearing needs: No Vision needs: Yes Questionnaire Thrive Questionnaire Date Thrive assessed: 10/21/22 WILBERTO-7 AMB Questionnaire WILBERTO-7 Date WILBERTO - 7 assessed: 01/15/22 Source: Developed by Drs. Mauro Lunsford, Kimmie Rizvi, Remy Mora and colleagues, with an educational dale from [employer]. Review of Systems Const Denies daytime sleepiness, Denies excessive sweating, Denies fatigue, Denies fever(s), Denies lethargy, Denies malaise, Denies night sweats, Denies snoring and Denies weight loss Eyes Denies blurry vision and Denies itchy eyes ENT Reports nasal congestion, Denies post nasal drip, Denies sinus pain, Denies sinus pressure and Denies other ( Thrush) Card Denies chest pain, Denies pedal edema, Denies dyspnea, Denies orthopnea and Denies paroxysmal nocturnal dyspnea Resp Denies cough, Denies hemoptysis, Denies excessive phlegm production, Denies dyspnea, Denies snoring and Denies wheezing GI Denies abdominal pain and Denies heartburn Reports urinary frequency Musc Denies myalgias, Denies arthralgias and Denies joint swelling Skin/Breast Denies rash Neuro Denies memory loss, Denies seizure-like activity and Denies Sensory deficit (Neuro) Psych Denies abnormal sleep pattern, Denies anxiety and Denies memory loss Endo Denies excessive sweating, Denies fatigue and Denies heat intolerance Jimmy/Lymph Denies easy bruising Aller/Immun Denies itchy eyes, Denies seasonal rhinorrhea and Denies wheezing Physical exam (Primary Care) Tobacco/Smoking Status: Tobacco use Status Tobacco use date assessed 02/01/23 02/01/23 16:13 Patient Tobacco Use Status Current everyday Tobacco 02/01/23 16:05 e-Cigarette/Vaping Use Never Used 02/01/23 16:05 Thrive Assessment: Date of Thrive Assessment Date Thrive assessed 10/21/22 02/01/23 16:05 Neuro Sensory Exam: No Sensory deficit (Neuro) Telehealth Telehealth Location of provider rendering services: practice address Location of patient: address on file Patient Identification confirmed using: Name, : Yes Telehealth method: video Patient verbally consented to treatment: Yes Patient verbally consented to billing insurance company: Yes Patient informed of any privacy concerns related to visit: Yes Minutes spent on Phone/Video with Pt.: 15 Results Reviewed Results Reviewed: ENTERED: 01/29/23 KALA BELL: ORDERED: CMP Fast, Lipid Panel Test Result Flag Reference Site Sodium 135 135-145 mmol/L Potassium 4.2 3.3-5.1 mmol/L CL 103 96-108 mmol/L CO2 22 22-29 mmol/L Gap 14 12-20 BUN 30 H 9-16 mg/dL Creat 2.07 H 0.5-1.4 mg/dL EGFR 35 NOTE: For -[place] individuals, multiply the result by 1.210. Chronic Kidney Disease: Estimated GFR < 60 mL/min/1.73m2 Severe Kidney Disease: Estimated GFR < 15 mL/min/1.73m2 FBS 238 H 60-99 mg/dL A fasting glucose of 126 mg/dl or greater on more than one occasion is considered diagnostic of diabetes. CA 10.2 8.4-10.2 mg/dL Total Bili 0.1 0.0-1.0 mg/dL AST (GOT) 18 5-37 U/L ALT (GPT) 19 0-40 U/L Protein, Total 7.9 6.5-8.0 g/dL Alb 4.0 3.5-5.0 g/dL Triglyceride 658 H <150 mg/dL Desirable Triglyceride: less than 150 mg/dL Borderline High Triglyceride 150-199 mg/dL High Triglyceride: 200-499 mg/dL Very High Triglyceride: greater than or equal to 5OO mg/dL Cholesterol 258 H <200 mg/dL Desirable Cholesterol: less than 200 mg/dL Borderline High Cholesterol: 200-239 mg/dL High Cholesterol: greater than 239 mg/dL LDL Calculated Test not performed <100 mg/dL Unable to calculate the LDL. The formula of Friedwald, Harrington, and Emanuel is only valid if the triglycerides are less than 400 mg/dl. HDL 28 L >40 mg/dL Desirable HDL: greater than 40 mg/dL Note: This HDL assay may give artificially low results in patients with liver disease. Alk Phos 85 39-117 U/L Laboratory Tests 11/11/22 01/29/23 13:58 08:11 Estimat Average Glucose 240 Hemoglobin A1c % 10.0 H PTH Intact 44 Calcium (PTH Intact) 10.3 Assessment and Plan Assessment & Plan (1) Type 2 diabetes mellitus with complication, with long-term current use of insulin: Code(s): E11.8 - Type 2 diabetes mellitus with unspecified complications; Z79.4 - long term care social worker (current) use of insulin Plan: Will increase Trulicity dose to 1.5 mg once a week , and continue taking empagliflozin 25 mg once a day in a.m. take it an hour before breakfast and only with glass of water. Stressed adherence to recommended diet has been seen by diabetic nurse and discussed ways to take any eat but patient very noncompliant with diet, encouraged to some exercise on a daily basis. At least walk for 15 minutes every day. Recommend to get his diabetes eye screen and once a year.. Prescription sent for [employer] Maria D reader and sensor kit to check blood sugar at home (2) Mixed dyslipidemia: Code(s): E78.2 - Mixed hyperlipidemia Plan: Discuss recent fasting lipid results with patient and caregiver with marked elevation triglycerides, continue fenofibrate, in started rosuvastatin 5 mg daily. Stressed importance of following recommended diet and getting regular exercise. Recheck labs again in 3 month Medications: New rosuvastatin 5 mg PO DAILY 30 tabs 5RF flash glucose scanning reader (FreeStyle Maria D 2 [place]) As directed 1 ea 5RF E11.8 - Type 2 diabetes mellitus with unspecified complications, Z79.4 - long term care social worker (current) use of insulin, E11.65 - Type 2 diabetes mellitus with hyperglycemia flash glucose sensor (FreeStyle Maria D 2 Sensor kit) As directed 1 ea 5RF E11.8 - Type 2 diabetes mellitus with unspecified complications, Z79.4 - long term care social worker (current) use of insulin, E11.65 - Type 2 diabetes mellitus with hyperglycemia Changed From Trulicity 0.75 mg (0.5 mL) subcut QWEEK 2 mL 2RF NS E11.8 - Type 2 diabetes mellitus with unspecified complications, Z79.4 - long term care social worker (current) use of insulin To dulaglutide 1.5 mg (0.5 mL) subcut QWEEK 2 mL 4RF 30 days E11.8 - Type 2 diabetes mellitus with unspecified complications, Z79.4 - jail (current) use of insulin Coding Level of Care Code Tele Est Pt Level 3 (18827) Diagnoses Type 2 diabetes mellitus with complication, with long-term current use of insulin E11.8; Z79.4 Mixed dyslipidemia E78.2
== END 2023-02-01 16:59 | disposition home or self-care (01) ==
LOC: HO.HMGC 16:14
PROVIDERS: PCP Internal Medicine; Visit Provider Internal Medicine
DX: E11.8 Type 2 diabetes mellitus with unspecified complications (principal); Z79.4 Long term (current) use of insulin; E78.2 Mixed hyperlipidemia
CPT/HCPCS: 99213

== ENCOUNTER 2023-02-17 11:46 | Outpatient (AMB) | payer MEDICARE, MEDICAID, SELFPAY ==
--- NOTE | 2023-02-17 12:18 | MHC.PC.OV ---
Vital Signs 02/17/23 12:19 Height 5 ft 8 in Weight 223 lb BMI 33.9 BP 120/80 Blood Pressure Location Lt brachial Position Sitting Pulse 104 H Pulse Source Pulse Oximeter Pulse Oximetry (%) 96 Oxygen Delivery Method Room Air Intake Visit Reasons: 3 Month follow up Intake Note: Pt is here to go over his lab results Allergies No Known Allergies Allergy (Verified 02/17/23 12:54) Medication List - Last Reconciled 02/17/23 by Rowena Cedeno MD acetaminophen (Tylenol Extra Strength) 500 mg PO Q12H PRN albuterol sulfate 90 mcg/actuation 2 puffs inhalation Q4-6H clozapine 200 mg PO BEDTIME docusate sodium 100 mg PO BID PRN dulaglutide 1.5 mg (0.5 mL) subcut QWEEK 30 days empagliflozin 25 mg PO DAILY fenofibrate 160 mg PO DAILY ferrous fumarate 324 mg PO DAILY flash glucose scanning reader [facility] 2 [place]) As directed flash glucose sensor ([facility] Maria D 2 Sensor kit) As directed fluticasone propionate 50 mcg/actuation (Flonase Allergy Relief) 1 spray intranasal BEDTIME 30 days haloperidol 5 mg PO BID insulin glargine (Lantus Solostar U-100 Insulin) 50 units (0.5 mL) subcut QAM lorazepam 1 mg PO BID losartan 25 mg PO DAILY omeprazole 20 mg PO BID pen needle, diabetic (Comfort EZ Pen [place]) inject insulin twice daily rosuvastatin 5 mg PO DAILY umeclidinium-vilanterol 62.5-25 mcg/actuation (Anoro Ellipta) 1 ea PO DAILY Tobacco use date assessed: 02/17/23 Dental Screening Dental Screen Date: 02/17/23 Did you have a dental visit in the last 12 months?: Yes Did you have a dental problem in the last 6 months where you did not have access to dental care?: No Was dental information given to patient?: Patient has dentist HPI 3 Month follow up HPI Details 43-year-old male here today for follow-up on his diabetes mellitus. He is currently on Trulicity 1.5 mg weekl, Lantus 50 units daily in a.m., and Jardiance 25 mg daily in a.m.. Patient has been using his freestyle Maria D and his sugar readings has been ranging from a low of 250 to HI readings over the last several weeks. He has been giving himself all his medicine in the morning when his nurse comes. He does it before breakfast, which now consist of a turkey sandwich. States that he does not eat lunch or dinner but snacks. No exercise at all, does not leave the house . He does have an appointment with [facility] for his diabetes retinopathy exam next month. Copy of results requested. His currently on fenofibrate but triglycerides now in the 600. Continues to refuse getting any vaccines. Laboratory Tests 01/29/23 08:11 Estimat Average Gl ucose 240 Hemoglobin A1c % 10.0 H [facility] Medical History (Updated 02/17/23 @ 13:15 by Rowena Cedeno MD) Type 2 diabetes mellitus with obesity CKD (chronic kidney disease) stage 4, GFR 15-29 ml/min Type 2 diabetes mellitus with complication, with long-term current use of insulin Uncontrolled diabetes mellitus with hyperglycemia Hypercalcemia Noncompliance with medication regimen Rash and nonspecific skin eruption Tremor Vitamin D deficiency Mixed dyslipidemia Restrictive airway disease Type 2 diabetes mellitus with other diabetic kidney complication Solitary pulmonary nodule on lung CT Smoker unmotivated to quit Obesity (BMI 30-39.9) Schizoaffective disorder Essential hypertension Surgical History No pertinent past surgical history Family History Father Unknown family medical history Mother Unknown family medical history Brother No problems noted. Sister No problems noted. Social History Housing: Other Housing Other:: retirement Alcohol intake: never Patient Tobacco Use Status: Current everyday Tobacco user Cigarette Packs Per Day: 2 e-Cigarette/Vaping Use: Never Used service: No Current occupational status: disabled Cognitive needs: No Hearing needs: No Vision needs: Yes Questionnaire Thrive Questionnaire Date Thrive assessed: 10/21/22 WILBERTO-7 AMB Questionnaire WILBERTO-7 Date WILBERTO - 7 assessed: 01/15/22 Source: Developed by Drs. Mauro Lunsford, Kimmie Rizvi, Remy Mora and colleagues, with an educational dale from [employer]. Review of Systems Const Denies daytime sleepiness, Denies excessive sweating, Denies fatigue, Denies fever(s), Denies lethargy, Denies malaise, Denies night sweats, Denies snoring and Denies weight loss Eyes Denies blurry vision and Denies itchy eyes ENT Reports nasal congestion, Denies post nasal drip, Denies sinus pain, Denies sinus pressure and Denies other ( Thrush) Card Denies chest pain, Denies pedal edema, Denies dyspnea, Denies orthopnea and Denies paroxysmal nocturnal dyspnea Resp Denies cough, Denies hemoptysis, Denies excessive phlegm production, Denies dyspnea, Denies snoring and Denies wheezing GI Denies abdominal pain and Denies heartburn Reports urinary frequency Musc Denies myalgias, Denies arthralgias and Denies joint swelling Skin/Breast Denies rash Neuro Denies memory loss, Denies seizure-like activity and Denies Sensory deficit (Neuro) Psych Denies abnormal sleep pattern, Denies anxiety and Denies memory loss Endo Denies excessive sweating, Denies fatigue and Denies heat intolerance Jimmy/Lymph Denies easy bruising Aller/Immun Denies itchy eyes, Denies seasonal rhinorrhea and Denies wheezing Physical exam (Primary Care) Vital Signs: Last Vital Signs Pulse 104 H 02/17/23 12:19 BP 120/80 02/17/23 12:19 Pulse Ox 96 02/17/23 12:19 Oxygen Delivery Method Room Air 02/17/23 12:19 BMI result Body Mass Index 33.9 Tobacco/Smoking Status: Tobacco use Status Tobacco use date assessed 02/17/23 02/17/23 12:30 Patient Tobacco Use Status Current everyday Tobacco 02/17/23 12:19 e-Cigarette/Vaping Use Never Used 02/17/23 12:19 Are you ready to quit: No Thrive Assessment: Date of Thrive Assessment Date Thrive assessed 10/21/22 02/17/23 12:19 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 General: comfortable, no acute distress and other (unkempt) Orientation/consciousness: patient oriented x3 HENMT Head: Yes normocephalic Ears: hearing grossly normal bilaterally General nose exam: Normal external nose present Face and sinus: Yes face symmetric Mouth: Normal oral and palatal mucosa present and moist mucous membranes Teeth and gingiva: poor dentition Eyes General: appearance normal, both eyes and all related structures Neck Neck: Yes full ROM, Yes no lymphadenopathy and Yes supple Resp Effort & Inspection: normal respiratory effort and able to speak in complete sentences Auscultation: clear to auscultation bilaterally Cardio Rate: regular rate Rhythm: regular rhythm Heart sounds: S1 normal heart sound present and S2 normal heart sound present GI Inspection: Yes obesity Palpation (GI): Soft to palpation, nontender, no guarding and no masses General: Yes no CVA tenderness Back/Spine/Pelvis Back: no CVA tenderness and No back tenderness Skin General skin exam: dry skin Neuro General: patient oriented x3, gait normal, moves all extremities, Normal light touch and pain sensation, no focal motor deficits and CN's II-XI intact bilaterally Gait exam (Neuro): Normal gait present Sensory Exam: No Sensory deficit (Neuro) Extrem Other: Thickened and toenails bilaterally, peripheral pulses full and equal, no pedal edema noted, plantar calluses bilateral General: Yes full ROM, Yes no joint enlargement, Yes no pedal edema and Yes normal gait Results Reviewed Results Reviewed: ENTERED: 01/29/[address] [facility] [address]: ORDERED: CMP Fast, Lipid Panel Test Result Flag Reference Sodium 135 135-145 mmol/L Potassium 4.2 3.3-5.1 mmol/L CL 103 96-108 mmol/L CO2 22 22-29 mmol/L Gap 14 12-20 BUN 30 H 9-16 mg/dL Creat 2.07 H 0.5-1.4 mg/dL EGFR 35 NOTE: For -[place]izen [place] individuals, multiply the result by 1.210. Chronic Kidney Disease: Estimated GFR < 60 mL/min/1.73m2 Severe Kidney Disease: Estimated GFR < 15 mL/min/1.73m2 FBS 238 H 60-99 mg/dL A fasting glucose of 126 mg/dl or greater on more than one occasion is considered diagnostic of diabetes. CA 10.2 8.4-10.2 mg/dL Total Bili 0.1 0.0-1.0 mg/dL AST (GOT) 18 5-37 U/L ALT (GPT) 19 0-40 U/L Protein, Total 7.9 6.5-8.0 g/dL Alb 4.0 3.5-5.0 g/dL Triglyceride 658 H <150 mg/dL Desirable Triglyceride: less than 150 mg/dL Borderline High Triglyceride 150-199 mg/dL High Triglyceride: 200-499 mg/dL Very High Triglyceride: greater than or equal to 5OO mg/dL Cholesterol 258 H <200 mg/dL Desirable Cholesterol: less than 200 mg/dL Borderline High Cholesterol: 200-239 mg/dL High Cholesterol: greater than 239 mg/dL LDL Calculated Test not performed <100 mg/dL Unable to calculate the LDL. The formula of Friedwald, Harrington, and Emanuel is only valid if the triglycerides are less than 400 mg/dl. HDL 28 L >40 mg/dL Desirable HDL: greater than 40 mg/dL Note: This HDL assay may give artificially low results in patients with liver disease. Alk Phos 85 39-117 U/L Assessment and Plan Assessment & Plan (1) Type 2 diabetes mellitus with other diabetic kidney complication: Code(s): E11.29 - Type 2 diabetes mellitus with other diabetic kidney complication Plan: Currently on Lantus 50 units in the morning. Advised to increase it to by 2 units every 2 days until we can get his fasting glucose less than 150 mg/dL. Continue empagliflozin 25 mg once a day in a.m. an hour before eating. Unable to start him on mealtime insulin as he is unable to give it to self peer Stressed importance of picking the right food to eat. Avoid snacking on junk food. Has been referred for diabetes education in the past, patient has poor compliance with recommendations given. (2) CKD (chronic kidney disease) stage 4, GFR 15-29 ml/min: Code(s): N18.4 - Chronic kidney disease, stage 4 (severe) Plan: Stressed importance of getting blood pressure and diabetes mellitus under control, patient advised to avoid NSAIDs. Stay well-hydrated. Repeat another fasting lipid panel, microalbumin, screening, basic metabolic panel in 3 month (3) Mixed dyslipidemia: Code(s): E78.2 - Mixed hyperlipidemia Plan: Currently on rosuvastatin and fenofibrate stressed importance of following recommended diet, and getting blood sugar under control (4) Essential hypertension: Code(s): I10 - Essential (primary) hypertension Plan: Blood pressure stable controlled at present time. continue losartan 25 mg daily (5) Restrictive airway disease: Code(s): J98.4 - Other disorders of lung Plan: Referred to Pulmonary currently on Anoro Ellipta, and albuterol inhaler as needed (6) Pulmonary nodules: Code(s): R91.8 - Other nonspecific abnormal finding of lung field Plan: Referred to Pulmonary for further evaluation (7) Emphysema of lung: Code(s): J43.9 - Emphysema, unspecified Plan: Referred to Pulmonary, currently on Anoro Ellipta and rescue inhaler with albuterol. Advised to quit smoking but patient unmotivated to quit at present time. Orders: Orders Hemoglobin A1c 04/30/23 N18.4 - Chronic kidney disease, stage 4 (severe), E11.65 - Type 2 diabetes mellitus with hyperglycemia, E11.69 - Type 2 diabetes mellitus with other specified complication, E66.9 - Obesity, unspecified, E78.2 - Mixed hyperlipidemia, E11.29 - Type 2 diabetes mellitus with other diabetic kidney complication, I10 - Essential (primary) hypertension Alanine Aminotransferase 04/30/23 N18.4 - Chronic kidney disease, stage 4 (severe), E11.65 - Type 2 diabetes mellitus with hyperglycemia, E11.69 - Type 2 diabetes mellitus with other specified complication, E66.9 - Obesity, unspecified, E78.2 - Mixed hyperlipidemia, E11.29 - Type 2 diabetes mellitus with other diabetic kidney complication, I10 - Essential (primary) hypertension Microalbumin, Random (w Creat) 04/30/23 N18.4 - Chronic kidney disease, stage 4 (severe), E11.65 - Type 2 diabetes mellitus with hyperglycemia, E11.69 - Type 2 diabetes mellitus with other specified complication, E66.9 - Obesity, unspecified, E78.2 - Mixed hyperlipidemia, E11.29 - Type 2 diabetes mellitus with other diabetic kidney complication, I10 - Essential (primary) hypertension Vitamin D 25-OH Total 04/30/23 N18.4 - Chronic kidney disease, stage 4 (severe), E11.65 - Type 2 diabetes mellitus with hyperglycemia, E11.69 - Type 2 diabetes mellitus with other specified complication, E66.9 - Obesity, unspecified, E78.2 - Mixed hyperlipidemia, E11.29 - Type 2 diabetes mellitus with other diabetic kidney complication, I10 - Essential (primary) hypertension Aspartate Amino Transferase 04/30/23 N18.4 - Chronic kidney disease, stage 4 (severe), E11.65 - Type 2 diabetes mellitus with hyperglycemia, E11.69 - Type 2 diabetes mellitus with other specified complication, E66.9 - Obesity, unspecified, E78.2 - Mixed hyperlipidemia, E11.29 - Type 2 diabetes mellitus with other diabetic kidney complication, I10 - Essential (primary) hypertension Basic Metabolic Panel Fasting 04/30/23 N18.4 - Chronic kidney disease, stage 4 (severe), E11.65 - Type 2 diabetes mellitus with hyperglycemia, E11.69 - Type 2 diabetes mellitus with other specified complication, E66.9 - Obesity, unspecified, E78.2 - Mixed hyperlipidemia, E11.29 - Type 2 diabetes mellitus with other diabetic kidney complication, I10 - Essential (primary) hypertension Lipid Panel 04/30/23 N18.4 - Chronic kidney disease, stage 4 (severe), E11.65 - Type 2 diabetes mellitus with hyperglycemia, E11.69 - Type 2 diabetes mellitus with other specified complication, E66.9 - Obesity, unspecified, E78.2 - Mixed hyperlipidemia, E11.29 - Type 2 diabetes mellitus with other diabetic kidney complication, I10 - Essential (primary) hypertension Coding Level of Care Code Est Pt Level 4 (41335) Diagnoses Type 2 diabetes mellitus with other diabetic kidney complication E11.29 CKD (chronic kidney disease) stage 4, GFR 15-29 ml/min N18.4 Mixed dyslipidemia E78.2 Essential hypertension I10 Restrictive airway disease J98.4 Pulmonary nodules R91.8 Emphysema of lung J43.9
[2023-02-17 12:19] VITALS: BP 120/80; PULSE 104; O2SAT 96; BMI 33.9
== END 2023-02-17 13:11 | disposition home or self-care (01) ==
PROVIDERS: PCP Internal Medicine; Visit Provider Internal Medicine
DX: E11.29 Type 2 diabetes mellitus with other diabetic kidney complication (principal); I12.9 Hypertensive chronic kidney disease with stage 1 through stage 4 chronic kidney disease, or unspecified chronic kidney disease; N18.4 Chronic kidney disease, stage 4 (severe); E78.2 Mixed hyperlipidemia; J98.4 Other disorders of lung; R91.8 Other nonspecific abnormal finding of lung field; J43.9 Emphysema, unspecified
CPT/HCPCS: 99214

== ENCOUNTER 2023-02-25 12:00 | Outpatient (REF) | payer MEDICARE, MEDICAID, SELFPAY ==
[2023-02-25 13:35] LABS: MANUAL DIFF FLAG NO
[2023-02-25 13:47] LABS: Basophils Percent Auto 0.2 % (0-2); Hematocrit 42.1 % (42.0-52.0); Hemoglobin 14.9 g/dl (14.0-18.0); Imm Gran Abs Auto 0.06 X10*3/uL (0.00-0.03); Imm Gran Pct Auto 0.7 % (0.0-0.4); Lymphocytes Absolute Auto 2.3 X10*3/uL (1.2-4.9); Lymphocytes Percent Auto 27.7 % (20-40); Mean Corpuscular HGB Conc 35.4 g/dl (31.0-36.0); Mean Corpuscular Hemoglobin 29.4 pg (27.0-33.0); Mean Corpuscular Volume 83.2 fL (80.0-98.0); Monocytes Absolute Auto 0.5 X10*3/uL (0.1-1.2); Monocytes Percent Auto 6.4 % (2-11); Neutrophils Absolute Auto 5.5 x10*3/uL (2.0-8.3); Platelet Count 221 X10*3/uL (160-400); Red Blood Count 5.06 X10*6/uL (4.60-5.80); Red Cell Distribution Width 13.8 % (11.0-16.0); WBCANC 8.5 X10*3/uL; White Blood Count 8.5 X10*3/uL (4.8-10.8)
== END 2023-02-25 12:01 | disposition home or self-care (01) ==
LOC: HO.HMGCLR 12:00
PROVIDERS: PCP Internal Medicine; Visit Provider Clinical Nurse Specialist Psychiatric/Mental Health, Adult
DX: Z79.899 Other long term (current) drug therapy (principal)
CPT/HCPCS: 36415; 85025

== ENCOUNTER 2023-03-25 13:12 | Outpatient (REF) | payer MEDICARE, MEDICAID, SELFPAY ==
[2023-03-25 16:19] LABS: MANUAL DIFF FLAG NO
[2023-03-25 16:40] LABS: Basophils Percent Auto 0.3 % (0-2); Eosinophils Percent Auto 0.1 % (0-4); Hematocrit 43.6 % (42.0-52.0); Hemoglobin 14.9 g/dl (14.0-18.0); Imm Gran Abs Auto 0.03 X10*3/uL (0.00-0.03); Imm Gran Pct Auto 0.3 % (0.0-0.4); Lymphocytes Absolute Auto 2.4 X10*3/uL (1.2-4.9); Lymphocytes Percent Auto 26.8 % (20-40); Mean Corpuscular HGB Conc 34.2 g/dl (31.0-36.0); Mean Corpuscular Hemoglobin 28.2 pg (27.0-33.0); Mean Corpuscular Volume 82.6 fL (80.0-98.0); Mean Platelet Volume 11.1 fL (9.4-12.4); Monocytes Absolute Auto 0.5 X10*3/uL (0.1-1.2); Monocytes Percent Auto 6.1 % (2-11); Neutrophils Absolute Auto 5.9 x10*3/uL (2.0-8.3); Neutrophils Percent Auto 66.4 % (45-73); Platelet Count 228 X10*3/uL (160-400); Red Blood Count 5.28 X10*6/uL (4.60-5.80); Red Cell Distribution Width 14.1 % (11.0-16.0); White Blood Count 8.9 X10*3/uL (4.8-10.8)
== END 2023-03-25 13:13 | disposition home or self-care (01) ==
LOC: HO.HMGCLR 13:12
PROVIDERS: PCP Internal Medicine; Visit Provider Clinical Nurse Specialist Psychiatric/Mental Health, Adult
DX: Z79.899 Other long term (current) drug therapy (principal)
CPT/HCPCS: 36415; 85025

== ENCOUNTER 2023-04-21 14:27 | Outpatient (REF) | payer MEDICARE, MEDICAID, SELFPAY ==
[2023-04-21 16:06] LABS: MANUAL DIFF FLAG NO
[2023-04-21 16:14] LABS: Basophils Percent Auto 0.3 % (0-2); Eosinophils Percent Auto 0.2 % (0-4); Hemoglobin 14.5 g/dl (14.0-18.0); Imm Gran Abs Auto 0.05 X10*3/uL (0.00-0.03); Imm Gran Pct Auto 0.6 % (0.0-0.4); Lymphocytes Absolute Auto 2.8 X10*3/uL (1.2-4.9); Lymphocytes Percent Auto 31.7 % (20-40); Mean Corpuscular HGB Conc 35.4 g/dl (31.0-36.0); Mean Corpuscular Hemoglobin 28.7 pg (27.0-33.0); Mean Platelet Volume 10.8 fL (9.4-12.4); Monocytes Absolute Auto 0.7 X10*3/uL (0.1-1.2); Monocytes Percent Auto 7.5 % (2-11); Neutrophils Absolute Auto 5.4 x10*3/uL (2.0-8.3); Neutrophils Percent Auto 59.7 % (45-73); Platelet Count 228 X10*3/uL (160-400); Red Blood Count 5.06 X10*6/uL (4.60-5.80); Red Cell Distribution Width 14.1 % (11.0-16.0)
== END 2023-04-21 14:28 | disposition home or self-care (01) ==
LOC: HO.HMGCLR 14:27
PROVIDERS: Visit Provider Clinical Nurse Specialist Psychiatric/Mental Health, Adult
DX: Z79.899 Other long term (current) drug therapy (principal)
CPT/HCPCS: 36415; 85025

== ENCOUNTER 2023-05-19 11:31 | Outpatient (AMB) | payer MEDICARE, MEDICAID, SELFPAY ==
[2023-05-19 11:42] VITALS: BP 122/84; PULSE 100; O2SAT 96; BMI 34.0
--- NOTE | 2023-05-19 11:42 | A.OFFPC_ITS ---
<Statement entered by Rowena Cedeno MD - 07/05/24 15:29> This note has been administratively?closed. Vital Signs 05/19/23 11:42 Height 5 ft 8 in Weight 223 lb 6 oz BMI 34.0 BP 122/84 Blood Pressure Location Lt brachial Position Sitting Pulse 100 Pulse Source Pulse Oximeter Pulse Oximetry (%) 96 Oxygen Delivery Method Room Air Intake Visit Reasons: 3 Month follow up Intake Note: Pt is here today for his 3 months f/u Allergies No Known Allergies Allergy (Verified 05/19/23 12:19) Medication List - Last Reconciled 05/19/23 by Rowena Cedeno MD acetaminophen (Tylenol Extra Strength) 500 mg PO Q12H PRN albuterol sulfate 90 mcg/actuation 2 puffs inhalation Q4-6H clozapine 200 mg PO BEDTIME docusate sodium 100 mg PO BID PRN dulaglutide 1.5 mg (0.5 mL) subcut QWEEK 30 days empagliflozin 25 mg PO DAILY fenofibrate 160 mg PO DAILY ferrous fumarate 324 mg PO DAILY flash glucose scanning reader ([employer] Maria D 2 [place]) As directed flash glucose sensor (FreeStyle Maria D 2 Sensor kit) As directed fluticasone propionate 50 mcg/actuation (Flonase Allergy Relief) 1 spray intranasal BEDTIME 30 days haloperidol 5 mg PO BID insulin degludec (Tresiba U-100 Insulin) 80 units subcut DAILY lorazepam 1 mg PO BID losartan 25 mg PO DAILY omeprazole 20 mg PO BID pen needle, diabetic (Comfort EZ Pen [place]) inject insulin twice daily rosuvastatin 5 mg PO DAILY umeclidinium-vilanterol 62.5-25 mcg/actuation (Anoro Ellipta) 1 ea PO DAILY Tobacco use date assessed: 05/19/23 Dental Screening Dental Screen Date: 05/19/23 Did you have a dental visit in the last 12 months?: Yes Did you have a dental problem in the last 6 months where you did not have access to dental care?: No Was dental information given to patient?: Patient has dentist HPI 3 Month follow up HPI Details 43-year-old male with history of schizoa ffective disorder, emphysema, is accompanied today by his caregiver. Has been taking his diabetes mellitus, hypertension, dyslipidemia, obesity, here today for follow-up. He previously was on Lantus but was recently sees changed to Tresiba at 80 units subcu given in the morning by his visiting nurse.Has been taking his Jardiance in the morning an hour before breakfast, but states that he ran out of his Trulicity for approximately 4 weeks now and just recently started again higher dose of 1.5 mg 4 days ago. He has been checking his blood sugar with freestyle Maria D and it has been running around 150-200 in the mid morning and then dropping to between 150-100 mg in the mid afternoon with occasional drops up to 50 mg/dL. He states that he only eats breakfast, does not eat lunch or dinner, no exercise at all. [facility] Medical History Type 2 diabetes mellitus with obesity CKD (chronic kidney disease) stage 4, GFR 15-29 ml/min Type 2 diabetes mellitus with complication, with long-term current use of insulin Uncontrolled diabetes mellitus with hyperglycemia Hypercalcemia Noncompliance with medication regimen Rash and nonspecific skin eruption Tremor Vitamin D deficiency Mixed dyslipidemia Restrictive airway disease Type 2 diabetes mellitus with other diabetic kidney complication Solitary pulmonary nodule on lung CT Smoker unmotivated to quit Obesity (BMI 30-39.9) Schizoaffective disorder Essential hypertension Surgical History No pertinent past surgical history Family History Father Unknown family medical history Mother Unknown family medical history Brother No problems noted. Sister No problems noted. Social History Housing: Other Housing Other:: skilled nursing Alcohol intake: never Patient Tobacco Use Status: Current everyday Tobacco user Cigarette Packs Per Day: 2 e-Cigarette/Vaping Use: Never Used service: No Current occupational status: disabled Cognitive needs: No Hearing needs: No Vision needs: Yes Questionnaire PHQ-9 Over the last 2 weeks, how often have you been bothered by any of the following problems? 1. Little interest or pleasure in doing things: nearly every day 2. Feeling down, depressed, or hopeless: nearly every day 3. Trouble falling or staying asleep, or sleeping too much: nearly every day 4. Feeling tired or having little energy: nearly every day 5. Poor appetite or overeating: nearly every day 6. Feeling bad about yourself - or that you are a failure or have let yourself or your family down: not at all 7. Trouble concentrating on things, such as reading the newspaper or watching television: nearly every day 8. Moving or speaking so slowly that other people could have noticed. Or the opposite - being so fidgety or restless that you have been moving around a lot more than usual: nearly every day 9. Thoughts that you would be better off or of hurting yourself in some way: not at all Total score: 21 Depression Screening Interpretation: Positive Depression Screening Follow-up: Existing condition, In treatment and Community Mental Health Worker F/U Depression Screening Done: Yes Source: Developed by Drs. Mauro Lunsford, Kimmie Rizvi, Remy Mora and colleagues, with an educational dale from [employer]. Thrive Questionnaire Date Thrive assessed: 05/19/23 I am a: Patient What is your living situation today?: I have a steady place to live Within the past 12 months, did the food you bought not last and you didn't have the money to get more?: Never true Within the past 12 months, did you worry whether your food would run out before you got money to buy more?: Never true Do you have trouble paying for medicines?: No Do you have trouble getting transportation to medical appointments?: No Do you have trouble paying your heating and electricity bill?: No Do you have trouble taking care of your child, family member or friend?: No Do you have trouble with day-to-day activities such as bathing, preparing meals, shopping, managing finances, etc.?: No Are you currently unemployed and looking for a job?: No Are you interested in more education?: No THRIVE Score: 0 AUDIT C Alcohol Use Questionnaire (AUDIT-C) 1. How often do you have a drink containing alcohol?: Never Total Score: 0 WILBERTO-7 AMB Questionnaire WILBERTO-7 Date WILBERTO - 7 assessed: 05/19/23 Feeling nervous, anxious, or on edge: 1 = Several days Not being able to stop or control worryin = Nearly every day Worrying too much about different things: 1 = Several days Trouble relaxin = Nearly every day Being so restless that it is hard to sit still: 2 = More than half the days Becoming easily annoyed or irritable: 1 = Several days Feeling afraid as if something awful might happen: 1 = Several days Total WILBERTO-7 score (0-4 normal; 5-9 mild; 10-14 moderate; 15-21 severe): 12 Source: Developed by Drs. Mauro Lunsford, Kimmie Rizvi, Remy Mora and colleagues, with an educational dale from [employer]. WILBERTO-7 Assessment Billing WILBERTO-7 Assessment Tool: WILBERTO-7 Assessment 47753 (Followed by psychiatry) Review of Systems Const Denies fatigue, Denies fever(s), Denies lethargy and Denies malaise Eyes Denies blurry vision ENT Denies post nasal drip, Denies sinus pain, Denies sinus pressure and Denies other ( Thrush) Card Denies chest pain, Denies pedal edema, Denies dyspnea and Denies orthopnea Resp Denies cough, Denies hemoptysis, Denies dyspnea and Denies wheezing GI Denies abdominal pain and Denies heartburn Reports urinary frequency Musc Denies myalgias, Denies arthralgias and Denies joint swelling Skin/Breast Denies rash Neuro Denies seizure-like activity and Denies Sensory deficit (Neuro) Psych Reports as per HPI Endo Denies fatigue and Denies heat intolerance Jimmy/Lymph Denies easy bruising Aller/Immun Denies seasonal rhinorrhea and Denies wheezing Physical exam (Primary Care) Vital Signs: Last Vital Signs Pulse 109 H 05/19/23 11:42 BP 122/84 05/19/23 11:42 Pulse Ox 96 05/19/23 11:42 Oxygen Delivery Method Room Air 05/19/23 11:42 BMI result Body Mass Index 34.0 Tobacco/Smoking Status: Tobacco use Status Tobacco use date assessed 05/19/23 05/19/23 11:45 Patient Tobacco Use Status Current everyday Tobacco 05/19/23 11:45 e-Cigarette/Vaping Use Never Used 05/19/23 11:45 Are you ready to quit: No PHQ-9: PHQ-9 Score PHQ-9: Total score 21 05/19/23 12:18 Depression Screening Interpretation: Positive Depression Screening Follow-up: Existing condition, In treatment and Community Mental Health Worker F/U Thrive Assessment: Date of Thrive Assessment Date Thrive assessed 05/19/23 05/19/23 11:59 Const 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: 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 General: comfortable, no acute distress and other (unkempt) Orientation/consciousness: patient oriented x3 HENMT Head: Yes normocephalic General nose exam: Normal external nose present Face and sinus: Yes face symmetric Mouth: Normal oral and palatal mucosa present and moist mucous membranes Teeth and gingiva: poor dentition Eyes General: appearance normal, both eyes and all related structures Neck Neck: Yes full ROM, Yes no lymphadenopathy and Yes supple Resp Effort & Inspection: normal respiratory effort and able to speak in complete sentences Auscultation: clear to auscultation bilaterally Cardio Rate: regular rate Rhythm: regular rhythm Heart sounds: S1 normal heart sound present and S2 normal heart sound present GI Inspection: Yes obesity Palpation (GI): Soft to palpation, nontender, no guarding and no masses Skin General skin exam: dry skin Neuro General: patient oriented x3, gait normal, moves all extremities, Normal light touch and pain sensation, no focal motor deficits and CN's II-XI intact bilaterally Gait exam (Neuro): Normal gait present Sensory Exam: No Sensory deficit (Neuro) Extrem Other: Thickened and toenails bilaterally, peripheral pulses full and equal, no pedal edema noted, plantar calluses bilateral General: Yes full ROM, Yes no joint enlargement, Yes no pedal edema and Yes normal gait Results Reviewed Results Reviewed: me: ArelyMatty Age/Sex: 43/M : 1980 Unit#: [id number] Attend Dr: JUAN PURVIS, Re04/21/23 Status: DEP REF Location: [facility] Disch: SPEC : [id number] KESHAWN: 04/21/23 STATUS: COMP REQ : [id number] RECD: 04/21/23-[address]: JUAN PURVIS, COMP: 04/21/23 ENTERED: 04/21/23-[address]: ORDERED: CBC Auto Diff Test Result Flag Reference WBC 9.0 4.8-10.8 X10*3/uL RBC 5.06 4.60-5.80 X10*6/uL HGB 14.5 14.0-18.0 g/dl HCT 41.0 L 42.0-52.0 % MCV 81.0 80.0-98.0 fL MCH 28.7 27.0-33.0 pg MCHC 35.4 31.0-36.0 g/dl RDW 14.1 11.0-16.0 % PLT 228 160-400 X10*3/uL MPV 10.8 9.4-12.4 fL Neut Pct Auto 59.7 45-73 % ImGran Pct Auto 0.6 H 0.0-0.4 % Lymp Pct Auto 31.7 20-40 % Day Pct Auto 7.5 2-11 % Eos Pct Auto 0.2 0-4 % Baso Pct Auto 0.3 0-2 % NRBC Pct Auto 0.0 0.0-0.2 /100WBC ANC Neut Abs # 5.4 2.0-8.3 x10*3/uL ImGran Abs Auto 0.05 H 0.00-0.03 X10*3/uL Lymph Abs Auto 2.8 1.2-4.9 X10*3/uL Day Abs Auto 0.7 0.1-1.2 X10*3/uL Eos Abs Auto 0.0 0.0-0.4 X10*3/uL Baso Abs Auto 0.0 0.0-0.2 X10*3/uL NRBC Abs Auto 0.000 0.0-0.012 X10*3/uL Name: Matty Mcgee Age/Sex: 42/M : 1980 Unit#: [id number] Attend Dr: Rowena Cedeno MD Re01/29/23 Status: DEP [facility] Disch: SPEC : [id number] KESHAWN: 01/29/23 STATUS: COMP REQ : [id number] RECD: 01/29/[address]: Rowena Cedeno MD COMP: 01/29/23 ENTERED: 01/29/[address]: ORDERED: CMP Fast, Lipid Panel Test Result Flag Reference Sodium 135 135-145 mmol/L Potassium 4.2 3.3-5.1 mmol/L CL 103 96-108 mmol/L CO2 22 22-29 mmol/L Gap 14 12-20 BUN 30 H 9-16 mg/dL Creat 2.07 H 0.5-1.4 mg/dL EGFR 35 NOTE: For -Ivorian individuals, multiply the result by 1.210. Chronic Kidney Disease: Estimated GFR < 60 mL/min/1.73m2 Severe Kidney Disease: Estimated GFR < 15 mL/min/1.73m2 FBS 238 H 60-99 mg/dL A fasting glucose of 126 mg/dl or greater on more than one occasion is considered diagnostic of diabetes. CA 10.2 8.4-10.2 mg/dL Total Bili 0.1 0.0-1.0 mg/dL AST (GOT) 18 5-37 U/L ALT (GPT) 19 0-40 U/L Protein, Total 7.9 6.5-8.0 g/dL Alb 4.0 3.5-5.0 g/dL Triglyceride 658 H <150 mg/dL Desirable Triglyceride: less than 150 mg/dL Borderline High Triglyceride 150-199 mg/dL High Triglyceride: 200-499 mg/dL Very High Triglyceride: greater than or equal to 5OO mg/dL Cholesterol 258 H <200 mg/dL Desirable Cholesterol: less than 200 mg/dL Borderline High Cholesterol: 200-239 mg/dL High Cholesterol: greater than 239 mg/dL LDL Calculated Test not performed <100 mg/dL Unable to calculate the LDL. The formula of Friedwald, Harrington, and Emanuel is only valid if the triglycerides are less than 400 mg/dl. HDL 28 L >40 mg/dL Desirable HDL: greater than 40 mg/dL Note: This HDL assay may give artificially low results in patients with liver disease. Alk Phos 85 39-117 U/L Laboratory Tests 01/29/23 08:11 Estimat Average Glucose 240 Hemoglobin A1c % 10.0 H Assessment and Plan Assessment & Plan (1) Type 2 diabetes mellitus with complication, with long-term current use of insulin: Code(s): E11.8 - Type 2 diabetes mellitus with unspecified complications; Z79.4 - assisted (current) use of insulin Plan: Diabetes mellitus poorly controlled with hemoglobin A1c now at 10.0 %. Recently restarted back on Trulicity, but at a higher dose of 1.5 mg subcutaneously given once a week, continued on empagliflozin 25 mg daily in a.m., and are advised to take his Tresiba 80 units at night with supper instead of in the morning. Continue to monitor blood sugar with freestyle Maria D. Goal is to go at least less than 150 mg in the morning when he wakes up and maintain it throughout today. Reinforced importance of following recommended diet as discussed with his excellence consultant. He is up-to-date with his diabetes retinopathy screening, as well as his diabetes foot exam. As per his caregiver, she states that he already has an appointment to see Dr. Bebeto obrien at the [facility] next month. (2) Mixed dyslipidemia: Code(s): E78.2 - Mixed hyperlipidemia (3) Essential hypertension: Code(s): I10 - Essential (primary) hypertension Medications: Refilled empagliflozin Take 1 tablet 1 hour before breakfast 25 mg PO DAILY 30 tabs 6RF E11.65 - Type 2 diabetes mellitus with hyperglycemia, Z79.4 - assisted (current) use of insulin Coding Level of Care Code Est Pt Level 4 (00775) Diagnoses Type 2 diabetes mellitus with complication, with long-term current use of insulin E11.8; Z79.4 Mixed dyslipidemia E78.2 Essential hypertension I10 Additional Codes WILBERTO-7 Assessment Billing - WILBERTO-7 Assessment Tool: WILBERTO-7 Assessment 29403 ([id number])
== END 2023-05-19 12:46 | disposition home or self-care (01) ==
PROVIDERS: PCP Internal Medicine; Visit Provider Internal Medicine
DX: E11.8 Type 2 diabetes mellitus with unspecified complications (principal); Z79.4 Long term (current) use of insulin; E78.2 Mixed hyperlipidemia; I10 Essential (primary) hypertension
CPT/HCPCS: 99499

== ENCOUNTER 2023-05-19 12:39 | Outpatient (REF) | payer MEDICARE, MEDICAID, SELFPAY ==
[2023-05-19 16:09] LABS: MANUAL DIFF FLAG NO
[2023-05-19 16:25] LABS: Basophils Percent Auto 0.3 % (0-2); Hemoglobin 15.4 g/dl (14.0-18.0); Imm Gran Abs Auto 0.05 X10*3/uL (0.00-0.03); Imm Gran Pct Auto 0.6 % (0.0-0.4); Lymphocytes Absolute Auto 2.4 X10*3/uL (1.2-4.9); Lymphocytes Percent Auto 27.6 % (20-40); Mean Corpuscular HGB Conc 34.2 g/dl (31.0-36.0); Mean Corpuscular Hemoglobin 28.4 pg (27.0-33.0); Mean Corpuscular Volume 82.9 fL (80.0-98.0); Mean Platelet Volume 11.1 fL (9.4-12.4); Monocytes Absolute Auto 0.6 X10*3/uL (0.1-1.2); Monocytes Percent Auto 6.9 % (2-11); Neutrophils Absolute Auto 5.7 x10*3/uL (2.0-8.3); Neutrophils Percent Auto 64.6 % (45-73); Platelet Count 221 X10*3/uL (160-400); Red Blood Count 5.43 X10*6/uL (4.60-5.80); Red Cell Distribution Width 14.8 % (11.0-16.0); White Blood Count 8.8 X10*3/uL (4.8-10.8)
== END 2023-05-19 12:40 | disposition home or self-care (01) ==
LOC: HO.HMGCLR 12:39
PROVIDERS: PCP Internal Medicine; Visit Provider Clinical Nurse Specialist Psychiatric/Mental Health, Adult
DX: Z79.899 Other long term (current) drug therapy (principal)
CPT/HCPCS: 36415; 85025

== ENCOUNTER 2023-06-21 11:38 | Outpatient (REF) | payer MEDICARE, MEDICAID, SELFPAY ==
[2023-06-21 13:36] LABS: MANUAL DIFF FLAG NO
[2023-06-21 13:57] LABS: Basophils Percent Auto 0.2 % (0-2); Hemoglobin 15.7 g/dl (14.0-18.0); Imm Gran Abs Auto 0.06 X10*3/uL (0.00-0.03); Imm Gran Pct Auto 0.6 % (0.0-0.4); Lymphocytes Absolute Auto 2.6 X10*3/uL (1.2-4.9); Lymphocytes Percent Auto 24.5 % (20-40); Mean Corpuscular HGB Conc 34.1 g/dl (31.0-36.0); Mean Corpuscular Hemoglobin 28.6 pg (27.0-33.0); Mean Corpuscular Volume 83.9 fL (80.0-98.0); Mean Platelet Volume 10.4 fL (9.4-12.4); Monocytes Absolute Auto 0.6 X10*3/uL (0.1-1.2); Monocytes Percent Auto 5.7 % (2-11); Neutrophils Absolute Auto 7.3 x10*3/uL (2.0-8.3); Platelet Count 248 X10*3/uL (160-400); Red Blood Count 5.48 X10*6/uL (4.60-5.80); Red Cell Distribution Width 14.9 % (11.0-16.0); White Blood Count 10.5 X10*3/uL (4.8-10.8)
== END 2023-06-21 11:39 | disposition home or self-care (01) ==
LOC: HO.HMGCLR 11:38
PROVIDERS: PCP Internal Medicine; Visit Provider Clinical Nurse Specialist Psychiatric/Mental Health, Adult
DX: Z79.899 Other long term (current) drug therapy (principal)
CPT/HCPCS: 36415; 85025

== ENCOUNTER 2023-07-21 12:32 | Outpatient (REF) | payer MEDICARE, MEDICAID, SELFPAY ==
[2023-07-21 16:48] LABS: MANUAL DIFF FLAG NO
[2023-07-21 18:01] LABS: Basophils Percent Auto 0.3 % (0-2); Eosinophils Percent Auto 0.1 % (0-4); Hematocrit 44.4 % (42.0-52.0); Hemoglobin 15.2 g/dl (14.0-18.0); Imm Gran Abs Auto 0.04 X10*3/uL (0.00-0.03); Imm Gran Pct Auto 0.4 % (0.0-0.4); Lymphocytes Absolute Auto 2.5 X10*3/uL (1.2-4.9); Lymphocytes Percent Auto 27.4 % (20-40); Mean Corpuscular HGB Conc 34.2 g/dl (31.0-36.0); Mean Corpuscular Hemoglobin 29.1 pg (27.0-33.0); Mean Corpuscular Volume 84.9 fL (80.0-98.0); Mean Platelet Volume 10.6 fL (9.4-12.4); Monocytes Absolute Auto 0.7 X10*3/uL (0.1-1.2); Monocytes Percent Auto 7.3 % (2-11); Neutrophils Absolute Auto 5.8 x10*3/uL (2.0-8.3); Neutrophils Percent Auto 64.5 % (45-73); Platelet Count 225 X10*3/uL (160-400); Red Blood Count 5.23 X10*6/uL (4.60-5.80); Red Cell Distribution Width 15.5 % (11.0-16.0)
== END 2023-07-21 12:33 | disposition home or self-care (01) ==
LOC: HO.HMGCLR 12:32
PROVIDERS: PCP Internal Medicine; Visit Provider Clinical Nurse Specialist Psychiatric/Mental Health, Adult
DX: Z79.899 Other long term (current) drug therapy (principal)
CPT/HCPCS: 36415; 85025

== ENCOUNTER 2023-08-04 11:37 | Outpatient (AMB) | payer MEDICARE, MEDICAID, SELFPAY ==
[2023-08-04 11:43] VITALS: BP 128/70; PULSE 89; O2SAT 98; BMI 33.4
--- NOTE | 2023-08-04 11:43 | MHC.OFFVIS ---
Vital Signs 08/04/23 11:43 Height 5 ft 8 in Weight 220 lb BMI 33.4 BP 128/70 Blood Pressure Location Rt brachial Position Sitting Pulse 89 Pulse Source Pulse Oximeter Pulse Oximetry (%) 98 Oxygen Delivery Method Room Air Intake Visit Reasons: Emphysema Length Control Tester Required: No Allergies No Known Allergies Allergy (Verified 08/04/23 11:45) HPI HPI Emphysema: Details: 43-year-old gentleman, active 40+ pack-year smoker with underlying schizophrenia followed for emphysema, environmental allergies, and bilateral pulmonary nodule.? patient continues on Anoro, albuterol MDI, and Flonase with reasonable control of his symptoms. He denies any recent exacerbations. His CT chest shows slowly increasing pulmonary nodules. 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 CKD (chronic kidney disease) stage 4, GFR 15-29 ml/min Type 2 diabetes mellitus with complication, with long-term current use of insulin Uncontrolled diabetes mellitus with hyperglycemia Hypercalcemia Noncompliance with medication regimen Rash and nonspecific skin eruption Tremor Vitamin D deficiency Mixed dyslipidemia Restrictive airway disease Type 2 diabetes mellitus with other diabetic kidney complication Solitary pulmonary nodule on lung CT Smoker unmotivated to quit Obesity (BMI 30-39.9) Schizoaffective disorder Essential hypertension Surgical History No pertinent past surgical history Family History Father Unknown family medical history Mother Unknown family medical history Brother No problems noted. Sister No problems noted. Social History Housing: Other Housing Other:: longterm Alcohol intake: never Patient Tobacco Use Status: Current everyday Tobacco user Cigarette Packs Per Day: 2 e-Cigarette/Vaping Use: Never Used service: No Current occupational status: disabled Cognitive needs: No Hearing needs: No Vision needs: Yes Review of Systems Const Denies daytime sleepiness, Denies excessive sweating, Denies fatigue, Denies fever(s), Denies lethargy, Denies malaise, Denies night sweats, Denies snoring and Denies weight loss Eyes Denies blurry vision and Denies itchy eyes ENT Denies nasal congestion, Denies post nasal drip, Denies sinus pain, Denies sinus pressure and Denies other ( Thrush) Card Denies chest pain, Denies pedal edema, Denies dyspnea, Denies orthopnea and Denies paroxysmal nocturnal dyspnea Resp Denies cough, Denies hemoptysis, Denies excessive phlegm production, Denies dyspnea, Denies snoring and Denies wheezing GI Denies abdominal pain and Denies heartburn Musc Denies myalgias, Denies arthralgias and Denies joint swelling Skin/Breast Denies rash Neuro Denies memory loss and Denies seizure-like activity Psych Denies abnormal sleep pattern, Denies anxiety and Denies memory loss Endo Denies excessive sweating, Denies fatigue and Denies heat intolerance Jimmy/Lymph Denies easy bruising Aller/Immun Denies itchy eyes, Denies seasonal rhinorrhea and Denies wheezing Physical Exam Vital Signs: Last Vital Signs Pulse 89 08/04/23 11:43 BP 128/70 08/04/23 11:43 Pulse Ox 98 08/04/23 11:43 Oxygen Delivery Method Room Air 08/04/23 11:43 BMI result Body Mass Index 33.4 Const General: no acute distress and alert Nutritional Appearance: not obese Orientation/consciousness: Other orientation findings ( oriented) HEENT Head: Yes atraumatic Eyes General: appearance normal, both eyes and all related structures Sclerae: sclerae normal EOM: EOMs intact bilaterally Neck Neck: Yes supple Lymphatic: no lymphadenopathy noted Resp Effort & Inspection: normal respiratory effort and no use of accessory muscles Auscultation: clear to auscultation bilaterally Cardio Rate: regular rate Rhythm: regular rhythm Heart sounds: no gallops, no murmurs and no rubs Skin General skin exam: other ( warm) Extrem General: No clubbing, No cyanosis and No edema Assessment & Plan Assessment & Plan (1) Pulmonary nodules: Code(s): R91.8 - Other nonspecific abnormal finding of lung field Category: Medical Plan: Slowly enlarging pulmonary nodules. Will obtain PET-CT for further evaluation. (2) Emphysema of lung: Code(s): J43.9 - Emphysema, unspecified Category: Medical Plan: Well controlled on Anoro and albuterol MDI. Continue current regimen. (3) Environmental allergies: Code(s): Z91.09 - Other allergy status, other than to drugs and biological substances Category: Medical Plan: Well controlled on Flonase. Continue current regimen. Orders: Orders PET CT fusion skull to thigh Today R91.8 - Other nonspecific abnormal finding of lung field Coding Level of Care Code Est Pt Level 4 (06741) Diagnoses Pulmonary nodules R91.8 Emphysema of lung J43.9 Environmental allergies Z91.09
== END 2023-08-04 11:55 | disposition home or self-care (01) ==
PROVIDERS: PCP Internal Medicine; Visit Provider Internal Medicine Pulmonary Disease
DX: R91.8 Other nonspecific abnormal finding of lung field (principal); J43.9 Emphysema, unspecified; Z91.09 Other allergy status, other than to drugs and biological substances
CPT/HCPCS: 99214

== ENCOUNTER → 2023-08-04 11:37 | Outpatient (BNVA) | payer MEDICARE, MEDICAID, SELFPAY | PROVIDERS: PCP Internal Medicine; Visit Provider Internal Medicine Pulmonary Disease | DX: R91.8 Other nonspecific abnormal finding of lung field (principal); J43.9 Emphysema, unspecified; Z91.09 Other allergy status, other than to drugs and biological substances | CPT/HCPCS: 99212 ==

== ENCOUNTER 2023-08-18 11:01 | Outpatient (AMB) | payer MEDICARE, MEDICAID, SELFPAY ==
[2023-08-18 11:02] VITALS: BP 122/80; PULSE 105; TEMP 36.4; O2SAT 96; BMI 33.1
--- NOTE | 2023-08-18 11:02 | AM.OFFWIN_ITS ---
Intake Vital Signs 08/18/23 11:02 Height 5 ft 8 in Weight 218 lb BMI 33.1 BP 122/80 Blood Pressure Location Lt brachial Position Sitting Pulse 105 H Pulse Source Pulse Oximeter Temp 97.5 F Temp Source Temporal Artery Scan Pulse Oximetry (%) 96 Oxygen Delivery Method Room Air Intake Visit Reasons: EP RT ear pain Intake Note: pt is here today for rt ear pain started 2 months ago Patient Tobacco Use Status: Current everyday Tobacco user Allergies No Known Allergies Allergy (Verified 08/18/23 11:05) Do you need a note to return to daycare/school/sports/work: No HPI EP RT ear pain HPI Details 43 year old male patient here today with [facility] worker Liselle for c/o right ear pain and pressure for about 2 months. Has not had this evaluated yet. Denies any fever/chills. Denies drainage from ear but reports sensation of water in his ear. 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 CKD (chronic kidney disease) stage 4, GFR 15-29 ml/min Type 2 diabetes mellitus with complication, with long-term current use of insulin Uncontrolled diabetes mellitus with hyperglycemia Hypercalcemia Noncompliance with medication regimen Rash and nonspecific skin eruption Tremor Vitamin D deficiency Mixed dyslipidemia Restrictive airway disease Type 2 diabetes mellitus with other diabetic kidney complication Solitary pulmonary nodule on lung CT Smoker unmotivated to quit Obesity (BMI 30-39.9) Schizoaffective disorder Essential hypertension Surgical History No pertinent past surgical history Family History Father Unknown family medical history Mother Unknown family medical history Brother No problems noted. Sister No problems noted. Social History Housing: Other Housing Other:: correction Alcohol intake: never Patient Tobacco Use Status: Current everyday Tobacco user Cigarette Packs Per Day: 2 e-Cigarette/Vaping Use: Never Used service: No Current occupational status: disabled Cognitive needs: No Hearing needs: No Vision needs: Yes Review of Systems Const All systems reviewed & are unremarkable except as noted in HPI and below Physical Exam Vital Signs: BMI result Body Mass Index 0.3 Const General: cooperative, healthy appearing and no acute distress HEENT Head: Yes normal to inspection Ears: hearing grossly normal bilaterally, external ears normal, Abnormal EAC present excessive cerumen on the right and TM abnormal wth effusion purulent on the right, erythematous on the right and with fluid behind the TM on the right Neck Neck: Yes no lymphadenopathy Resp Effort & Inspection: normal respiratory effort Skin General skin exam: no rashes or lesions noted Extrem General: Yes capillary refill normal and Yes no clubbing, cyanosis or edema Psych Appearance: grossly normal Mental Status: mental status grossly normal Speech and movement: Normal speech and movement present Assessment & Plan Assessment & Plan (1) Right otitis media with effusion: Code(s): H65.91 - Unspecified nonsuppurative otitis media, right ear Plan: Cefdinir BID 7 days. Cannot take Augmentin due to renal impairment. Reviewed ind ications, use, possible s/e of medication. May take an otc decongestant and wax drops as needed. He should return to the clinic if he does not improve with treatment. Medications: New cefdinir Take twice a day for 1 week. 300 mg PO BID 7 days 14 caps 0RF H65.91 - Unspecified nonsuppurative otitis media, right ear Coding Level of Care Code Est Pt Level 4 (32910) Diagnoses Right otitis media with effusion H65.91
== END 2023-08-18 11:41 | disposition home or self-care (01) ==
PROVIDERS: PCP Internal Medicine; Visit Provider Nurse Practitioner Family
DX: H65.91 Unspecified nonsuppurative otitis media, right ear (principal)
CPT/HCPCS: 99214

== ENCOUNTER 2023-08-18 11:27 | Outpatient (REF) | payer MEDICARE, MEDICAID, SELFPAY ==
[2023-08-18 12:53] LABS: MANUAL DIFF FLAG NO
[2023-08-18 13:01] LABS: Basophils Percent Auto 0.3 % (0-2); Eosinophils Percent Auto 0.1 % (0-4); Hematocrit 45.2 % (42.0-52.0); Hemoglobin 15.7 g/dl (14.0-18.0); Imm Gran Abs Auto 0.04 X10*3/uL (0.00-0.03); Imm Gran Pct Auto 0.4 % (0.0-0.4); Lymphocytes Absolute Auto 2.2 X10*3/uL (1.2-4.9); Lymphocytes Percent Auto 23.9 % (20-40); Mean Corpuscular HGB Conc 34.7 g/dl (31.0-36.0); Mean Corpuscular Hemoglobin 28.9 pg (27.0-33.0); Mean Corpuscular Volume 83.1 fL (80.0-98.0); Mean Platelet Volume 10.6 fL (9.4-12.4); Monocytes Absolute Auto 0.6 X10*3/uL (0.1-1.2); Monocytes Percent Auto 6.6 % (2-11); Neutrophils Absolute Auto 6.3 x10*3/uL (2.0-8.3); Neutrophils Percent Auto 68.7 % (45-73); Platelet Count 225 X10*3/uL (160-400); Red Blood Count 5.44 X10*6/uL (4.60-5.80); Red Cell Distribution Width 14.7 % (11.0-16.0); White Blood Count 9.2 X10*3/uL (4.8-10.8)
== END 2023-08-18 11:28 | disposition home or self-care (01) ==
LOC: HO.HMGCLR 11:27
PROVIDERS: PCP Internal Medicine; Referring Provider Clinical Nurse Specialist Psychiatric/Mental Health, Adult; Visit Provider Internal Medicine
DX: Z79.899 Other long term (current) drug therapy (principal)
CPT/HCPCS: 36415; 85025

== ENCOUNTER 2023-09-08 09:04 | Outpatient (REF) | payer MEDICARE, MEDICAID, SELFPAY ==
[2023-09-08 13:10] LABS: MANUAL DIFF FLAG NO
[2023-09-08 13:30] LABS: Basophils Percent Auto 0.1 % (0-2); Hematocrit 47.5 % (42.0-52.0); Hemoglobin 16.8 g/dl (14.0-18.0); Imm Gran Abs Auto 0.05 X10*3/uL (0.00-0.03); Imm Gran Pct Auto 0.5 % (0.0-0.4); Lymphocytes Absolute Auto 2.3 X10*3/uL (1.2-4.9); Lymphocytes Percent Auto 25.1 % (20-40); Mean Corpuscular HGB Conc 35.4 g/dl (31.0-36.0); Mean Corpuscular Hemoglobin 29.5 pg (27.0-33.0); Mean Corpuscular Volume 83.3 fL (80.0-98.0); Mean Platelet Volume 10.8 fL (9.4-12.4); Monocytes Absolute Auto 0.6 X10*3/uL (0.1-1.2); Monocytes Percent Auto 6.4 % (2-11); Neutrophils Absolute Auto 6.3 x10*3/uL (2.0-8.3); Neutrophils Percent Auto 67.9 % (45-73); Platelet Count 203 X10*3/uL (160-400); Red Cell Distribution Width 14.1 % (11.0-16.0); White Blood Count 9.2 X10*3/uL (4.8-10.8)
[2023-09-08 13:46] LABS: Estimated Average Glucose 214 mg/dL; Hemoglobin A1c % 9.1 % (<6.0)
[2023-09-08 14:11] LABS: Alanine Aminotransferase 35 U/L (0-40); Anion Gap 13 (12-20); Aspartate Amino Transferase 28 U/L (5-37); Blood Urea Nitrogen 24 mg/dL (9-16); Calcium 9.9 mg/dL (8.4-10.2); Carbon Dioxide 22 mmol/L (22-29); Chloride 102 mmol/L (96-108); Cholesterol 145 mg/dL (<200); Estimated Glomerular Filt Rate 34; Glucose Fasting 189 mg/dL (60-99); HDL Cholesterol 25 mg/dL (>40); LDL Cholesterol Calculated 42 mg/dL (<100); Potassium 4.4 mmol/L (3.3-5.1); Sodium 133 mmol/L (135-145); Triglycerides 393 mg/dL (<150); Vitamin D 25-OH Total 32.6 ng/mL (>30)
[2023-09-08 14:30] LABS: Creatinine Urine 18.64 mg/dL; Microalbum/Creatinine Ratio Ur 160.9 ug/mg cr (<30)
== END 2023-09-08 09:05 | disposition home or self-care (01) ==
LOC: HO.HMGCLR 09:04
PROVIDERS: PCP Internal Medicine; Referring Provider Clinical Nurse Specialist Psychiatric/Mental Health, Adult; Visit Provider Internal Medicine
DX: Z79.899 Other long term (current) drug therapy (principal); N18.4 Chronic kidney disease, stage 4 (severe); E11.65 Type 2 diabetes mellitus with hyperglycemia; E11.69 Type 2 diabetes mellitus with other specified complication; E66.9 Obesity, unspecified; E78.2 Mixed hyperlipidemia; E11.29 Type 2 diabetes mellitus with other diabetic kidney complication; I10 Essential (primary) hypertension
CPT/HCPCS: 36415; 80048; 80061; 82043; 82306; 82570; 83036; 84450; 84460; 85025

== ENCOUNTER 2023-09-14 12:11 | Outpatient (AMB) | payer MEDICARE, MEDICAID, SELFPAY ==
[2023-09-14 12:59] VITALS: BP 128/86; PULSE 84; O2SAT 97; BMI 33.0
--- NOTE | 2023-09-14 12:59 | A.OFFPC_ITS ---
Vital Signs 09/14/23 12:59 Height 5 ft 8 in Weight 217 lb BMI 33.0 BP 128/86 Blood Pressure Location Lt brachial Position Sitting Pulse 84 Pulse Source Pulse Oximeter Pulse Oximetry (%) 97 Oxygen Delivery Method Room Air Intake Visit Reasons: PE Intake Note: Pt is here today for his PE Allergies No Known Allergies Allergy (Verified 09/20/23 02:28) Medication List - Last Reconciled 09/20/23 by Rowena Cedeno MD acetaminophen (Tylenol Extra Strength) 500 mg PO Q12H PRN albuterol sulfate 90 mcg/actuation 2 puffs inhalation Q4-6H bisacodyl (Dulcolax (bisacodyl)) 10 mg (2 x 5 mg) PO BEDTIME PRN 2 days clozapine 200 mg PO BEDTIME docusate sodium 100 mg PO BID PRN empagliflozin 25 mg PO DAILY fenofibrate 160 mg PO DAILY ferrous fumarate 324 mg PO DAILY flash glucose scanning reader ([email or web address] Maria D 2 [place]) As directed flash glucose sensor ([employer] Maria D 2 Sensor kit) As directed fluticasone propionate 50 mcg/actuation (Flonase Allergy Relief) 1 spray intranasal BEDTIME 30 days haloperidol 5 mg PO BID insulin degludec (Tresiba U-100 Insulin) 80 units subcut DAILY lorazepam 1 mg PO BID losartan 25 mg PO DAILY metformin 1,000 mg PO BID omeprazole 20 mg PO BID pen needle, diabetic (Comfort EZ Pen [place]) inject insulin twice daily rosuvastatin 5 mg PO DAILY semaglutide (Ozempic) mg subcut umeclidinium-vilanterol 62.5-25 mcg/actuation (Anoro Ellipta) 1 ea PO DAILY Tobacco use date assessed: 09/14/23 Dental Screening Dental Screen Date: 09/14/23 Did you have a dental visit in the last 12 months?: Yes Did you have a dental problem in the last 6 months where you did not have access to dental care?: No Was dental information given to patient?: Patient has dentist HPI PE HPI Details 43-year-old male with diabetes mellitus, hyperlipidemia, hypertension, with history schizoaffective disorder, and obesity, here today accompanied by caregiver for his physical exam. He has been trying to follow recommended diet, has been taking his medicines as directed, but admits to not getting any regular exercise. [facility] Medical History (Updated 09/14/23 @ 13:48 by Rowena Cedeno MD) CKD (chronic kidney disease) stage 3, GFR 30-59 ml/min Tinea unguium Type 2 diabetes mellitus with diabetic polyneuropathy Type 2 diabetes mellitus with obesity CKD (chronic kidney disease) stage 4, GFR 15-29 ml/min Type 2 diabetes mellitus with complication, with long-term current use of insulin Uncontrolled diabetes mellitus with hyperglycemia Hypercalcemia Noncompliance with medication regimen Rash and nonspecific skin eruption Tremor Vitamin D deficiency Mixed dyslipidemia Restrictive airway disease Type 2 diabetes mellitus with other diabetic kidney complication Solitary pulmonary nodule on lung CT Smoker unmotivated to quit Obesity (BMI 30-39.9) Schizoaffective disorder Essential hypertension Surgical History No pertinent past surgical history Family History Father Unknown family medical history Mother Unknown family medical history Brother No problems noted. Sister No problems noted. Social History Housing: Other Housing Other:: residential Alcohol intake: never Patient Tobacco Use Status: Current everyday Tobacco user Cigarette Packs Per Day: 2 e-Cigarette/Vaping Use: Never Used service: No Current occupational status: disabled Cognitive needs: No Hearing needs: No Vision needs: Yes Questionnaire PHQ-9 Over the last 2 weeks, how often have you been bothered by any of the following problems? 1. Little interest or pleasure in doing things: not at all 2. Feeling down, depressed, or hopeless: several days 3. Trouble falling or staying asleep, or sleeping too much: nearly every day 4. Feeling tired or having little energy: several days 5. Poor appetite or overeating: several days 6. Feeling bad about yourself - or that you are a failure or have let yourself or your family down: not at all 7. Trouble concentrating on things, such as reading the newspaper or watching television: several days 8. Moving or speaking so slowly that other people could have noticed. Or the opposite - being so fidgety or restless that you have been moving around a lot more than usual: several days 9. Thoughts that you would be better off or of hurting yourself in some way: not at all Total score: 8 Source: Developed by Drs. Mauro Lunsford, Kimmie Rizvi, Remy Mora and colleagues, with an educational dale from [employer]. Thrive Questionnaire Date Thrive assessed: 05/19/23 I am a: Patient What is your living situation today?: I have a steady place to live Within the past 12 months, did the food you bought not last and you didn't have the money to get more?: Never true Within the past 12 months, did you worry whether your food would run out before you got money to buy more?: Never true Do you have trouble paying for medicines?: No Do you have trouble getting transportation to medical appointments?: No Do you have trouble paying your heating and electricity bill?: No Do you have trouble taking care of your child, family member or friend?: No Do you have trouble with day-to-day activities such as bathing, preparing meals, shopping, managing finances, etc.?: No Are you currently unemployed and looking for a job?: No Are you interested in more education?: No Please select the resources that you would like help with: Housing/Nursing Home Currently or been in a relationship where the following occur: I choose not to answer THRIVE Score: 0 AUDIT C Alcohol Use Questionnaire (AUDIT-C) 1. How often do you have a drink containing alcohol?: Never Total Score: 0 WILBERTO-7 AMB Questionnaire WILBERTO-7 Date WILBERTO - 7 assessed: 05/19/23 Feeling nervous, anxious, or on edge: 0 = Not at all Not being able to stop or control worryin = Several days Worrying too much about different things: 0 = Not at all Trouble relaxin = Not at all Being so restless that it is hard to sit still: 0 = Not at all Becoming easily annoyed or irritable: 1 = Several days Feeling afraid as if something awful might happen: 0 = Not at all Total WILBERTO-7 score (0-4 normal; 5-9 mild; 10-14 moderate; 15-21 severe): 2 Source: Developed by Kimmie Leos Kurt Kroenke a nd colleagues, with an educational dale from [employer]. Review of Systems Const Denies fatigue, Denies fever(s), Denies lethargy and Denies malaise Eyes Denies blurry vision ENT Denies post nasal drip, Denies sinus pain, Denies sinus pressure and Denies other ( Thrush) Card Denies chest pain, Denies pedal edema, Denies dyspnea and Denies orthopnea Resp Denies cough, Denies hemoptysis, Denies dyspnea and Denies wheezing GI Denies abdominal pain and Denies heartburn Reports urinary frequency Musc Denies myalgias, Denies arthralgias and Denies joint swelling Skin/Breast Denies rash Neuro Denies Sensory deficit (Neuro) Psych Reports as per HPI Endo Denies fatigue and Denies heat intolerance Jimmy/Lymph Denies easy bruising Aller/Immun Denies seasonal rhinorrhea and Denies wheezing Physical exam (Primary Care) Vital Signs: Last Vital Signs Pulse 84 09/14/23 12:59 BP 128/86 09/14/23 12:59 Pulse Ox 97 09/14/23 12:59 Oxygen Delivery Method Room Air 09/14/23 12:59 BMI result Body Mass Index 33.0 Tobacco/Smoking Status: Tobacco use Status Tobacco use date assessed 09/14/23 09/14/23 13:09 Patient Tobacco Use Status Current everyday Tobacco 09/14/23 12:59 e-Cigarette/Vaping Use Never Used 09/14/23 12:59 Are you ready to quit: No PHQ-9: PHQ-9 Score PHQ-9: Total score 8 09/14/23 13:56 Thrive Assessment: Date of Thrive Assessment Date Thrive assessed 05/19/23 09/14/23 12:59 Currently or been in a relationship where the following occur: I choose not to answer Const Other: Learning Coordinator present General: comfortable and no acute distress Orientation/consciousness: patient oriented x3 HENMT Head: Yes normocephalic General nose exam: Normal external nose present Face and sinus: Yes face symmetric Mouth: Normal oral and palatal mucosa present and moist mucous membranes Teeth and gingiva: poor dentition Eyes General: appearance normal, both eyes and all related structures Neck Neck: Yes full ROM, Yes no lymphadenopathy and Yes supple Resp Effort & Inspection: normal respiratory effort and able to speak in complete sentences Auscultation: clear to auscultation bilaterally Cardio Rate: regular rate Rhythm: regular rhythm Heart sounds: S1 normal heart sound present and S2 normal heart sound present GI Inspection: Yes obesity Palpation (GI): Soft to palpation, nontender, no guarding and no masses General: Yes no CVA tenderness Back/Spine/Pelvis Back: no CVA tenderness and No back tenderness Skin General skin exam: dry skin Neuro General: patient oriented x3, gait normal, moves all extremities, Normal light touch and pain sensation, no focal motor deficits and CN's II-XI intact bilaterally Gait exam (Neuro): Normal gait present Sensory Exam: No Sensory deficit (Neuro) Extrem Other: Thickened and toenails bilaterally, peripheral pulses full and equal, no pedal edema noted, plantar calluses bilateral General: Yes full ROM, Yes no joint enlargement, Yes no pedal edema and Yes normal gait Results Reviewed Results Reviewed: vivi: Arely,Alberto Age/Sex: 43/M : 1980 Unit#: [id number] Attend Dr: Rowena Cedeno MD Re09/08/23 Status: DEP REF Location: [facility] Disch: SPEC : [id number] KESHAWN: 09/08/23 STATUS: COMP REQ : [id number] RECD: 09/08/[address]: Rui Dutta NP COMP: 09/08/23 ENTERED: 09/08/[address]: Rowena Cedeno MD ORDERED: CBC Auto Diff Test Result Flag Reference WBC 9.2 4.8-10.8 X10*3/uL RBC 5.70 4.60-5.80 X10*6/uL HGB 16.8 14.0-18.0 g/dl HCT 47.5 42.0-52.0 % MCV 83.3 80.0-98.0 fL MCH 29.5 27.0-33.0 pg MCHC 35.4 31.0-36.0 g/dl RDW 14.1 11.0-16.0 % PLT 203 160-400 X10*3/uL MPV 10.8 9.4-12.4 fL Neut Pct Auto 67.9 45-73 % ImGran Pct Auto 0.5 H 0.0-0.4 % Lymp Pct Auto 25.1 20-40 % Sampson Pct Auto 6.4 2-11 % Eos Pct Auto 0.0 0-4 % Baso Pct Auto 0.1 0-2 % NRBC Pct Auto 0.0 0.0-0.2 /100WBC ANC Neut Abs # 6.3 2.0-8.3 x10*3/uL ImGran Abs Auto 0.05 H 0.00-0.03 X10*3/uL Lymph Abs Auto 2.3 1.2-4.9 X10*3/uL Sampson Abs Auto 0.6 0.1-1.2 X10*3/uL Eos Abs Auto 0.0 0.0-0.4 X10*3/uL Baso Abs Auto 0.0 0.0-0.2 X10*3/uL NRBC Abs Auto 0.000 0.0-0.012 X10*3/uL vivi: Surjit Mcgeeto Age/Sex: 43/M : 1980 Unit#: [id number] Attend Dr: Rowena Cedeno MD Re09/08/23 Status: DEP REF Location: [facility] Disch: SPEC : [id number] KESHAWN: 09/08/23 STATUS: COMP REQ : [id number] RECD: 09/08/[address] [facility] [address]: Rui Dutta NP COMP: 09/08/23 ENTERED: 09/08/23 [facility] DR: Rowena Cedeno MD ORDERED: CBC Auto Diff Test Result Flag Reference WBC 9.2 4.8-10.8 X10*3/uL RBC 5.70 4.60-5.80 X10*6/uL HGB 16.8 14.0-18.0 g/dl HCT 47.5 42.0-52.0 % MCV 83.3 80.0-98.0 fL MCH 29.5 27.0-33.0 pg MCHC 35.4 31.0-36.0 g/dl RDW 14.1 11.0-16.0 % PLT 203 160-400 X10*3/uL MPV 10.8 9.4-12.4 fL Neut Pct Auto 67.9 45-73 % ImGran Pct Auto 0.5 H 0.0-0.4 % Lymp Pct Auto 25.1 20-40 % Sampson Pct Auto 6.4 2-11 % Eos Pct Auto 0.0 0-4 % Baso Pct Auto 0.1 0-2 % NRBC Pct Auto 0.0 0.0-0.2 /100WBC ANC Neut Abs # 6.3 2.0-8.3 x10*3/uL ImGran Abs Auto 0.05 H 0.00-0.03 X10*3/uL Lymph Abs Auto 2.3 1.2-4.9 X10*3/uL Sampson Abs Auto 0.6 0.1-1.2 X10*3/uL Eos Abs Auto 0.0 0.0-0.4 X10*3/uL Baso Abs Auto 0.0 0.0-0.2 X10*3/uL NRBC Abs Auto 0.000 0.0-0.012 X10*3/uL Laboratory Tests 09/08/23 09:34 Estimat Average Glucose 214 Hemoglobin A1c % 9.1 H Urine Creatinine 18.64 Urine Microalbumin 30.0 Microalb/Creat Ratio 160.9 H ENTERED: 09/08/23-931 KALA BELL: ORDERED: Met Prof Fast, AST, ALT, Lipid Panel, Vitamin D 25-OH Test Result Flag Reference Sodium 133 L 135-145 mmol/L Potassium 4.4 3.3-5.1 mmol/L CL 102 96-108 mmol/L CO2 22 22-29 mmol/L Gap 13 12-20 BUN 24 H 9-16 mg/dL Creat 2.11 H 0.5-1.4 mg/dL EGFR 34 NOTE: For -Thai individuals, multiply the result by 1.210. Chronic Kidney Disease: Estimated GFR < 60 mL/min/1.73m2 Severe Kidney Disease: Estimated GFR < 15 mL/min/1.73m2 FBS 189 H 60-99 mg/dL A fasting glucose of 126 mg/dl or greater on more than one occasion is considered diagnostic of diabetes. CA 9.9 8.4-10.2 mg/dL AST (GOT) 28 5-37 U/L ALT (GPT) 35 0-40 U/L Triglyceride 393 H <150 mg/dL Desirable Triglyceride: less than 150 mg/dL Borderline High Triglyceride 150-199 mg/dL High Triglyceride: 200-499 mg/dL Very High Triglyceride: greater than or equal to 5OO mg/dL Cholesterol 145 <200 mg/dL Desirable Cholesterol: less than 200 mg/dL Borderline High Cholesterol: 200-239 mg/dL High Cholesterol: greater than 239 mg/dL LDL Calculated 42 <100 mg/dL Desirable LDL: less than 100 mg/dL Near Optimal/Above Optimal LDL: 110-129 mg/dL Borderline High LDL: 130-159 mg/dL High LDL: 160-189 mg/dL Very High LDL: greater than or equal to 190 mg/dL HDL 25 L >40 mg/dL Desirable HDL: greater than 40 mg/dL Note: This HDL assay may give artificially low results in patients with liver disease. Vit D 25-OH Tot 32.6 >30 ng/mL Health Based Reference Values* Assessment and Plan Assessment & Plan (1) Annual visit for general adult medical examination with abnormal findings: Code(s): Z00.01 - Encounter for general adult medical examination with abnormal findings Plan: Reviewed recent fasting lab results with patient and caregiver. Recommended dental visit every 6 months and regular eye exams once a year. Take adequate calcium in diet and vitamin-D 3 at 2000 IU per cap once a day, in addition to weight-bearing exercises to help maintain good muscle tone and weight control. Instructed to do self-testicular exam check for any mass. Has had COVID vaccines in the past but does not want to get the booster, reminded to get yearly flu shots, up-to-date with his pneumonia vaccine and Tdap (2) CKD (chronic kidney disease) stage 3, GFR 30-59 ml/min: Code(s): N18.30 - Chronic kidney disease, stage 3 unspecified Plan: Likely due to poorly poorly controlled diabetes mellitus, referred to nephrology clinic for further evaluation management (3) Uncontrolled diabetes mellitus with hyperglycemia: Code(s): E11.65 - Type 2 diabetes mellitus with hyperglycemia Qualifiers: Diabetes mellitus type: type 2 Qualified Code(s): E11.65 - Type 2 diabetes mellitus with hyperglycemia Plan: Slight improvement in his a hemoglobin A1c noted now at 9.1%. Will continue on Ozempic, metformin 1000 mg twice a day and Tresiba 80 units at night as well as empagliflozin 25 mg daily. Reinforced importance of following recommended diet, and getting regular exercise at least 15 minutes of cardio exercise on a daily basis. (4) Mixed dyslipidemia: Code(s): E78.2 - Mixed hyperlipidemia Plan: Reviewed recent fasting lipid profile with patient with levels within normal limits except for low good cholesterol . Continue rosuvastatin 5 mg once a day , in addition to adherence to low-cholesterol diet and regular exercise, at least 30 minutes 3 to 4 times a week. Advised patient to make healthy food choices, eat more fruits, vegetables, whole grains, wild caught fish and low- fat dairy. Limit amount of meat and fried or fatty food products, as well as processed foods and fast foods. Follow-up scheduled with repeat fasting lipid panel in 3 months. (5) Type 2 diabetes mellitus with other diabetic kidney complication: Code(s): E11.29 - Type 2 diabetes mellitus with other diabetic kidney complication Plan: Slight improvement in his a hemoglobin A1c noted now at 9.1%. Will continue on Ozempic, metformin 1000 mg twice a day and Tresiba 80 units at night as well as empagliflozin 25 mg daily. Reinforced importance of following recommended diet, and getting regular exercise at least 15 minutes of cardio exercise on a daily basis , referral to nephrology ordered (6) Essential hypertension: Code(s): I10 - Essential (primary) hypertension Plan: Blood pressure at goal of less than 130/80. Continue with current medication. Reinforced importance of following a low sodium diet, getting regular exercise, and lowering stress levels. (7) Schizoaffective disorder: Code(s): F25.9 - Schizoaffective disorder, unspecified Plan: Followed by psychiatry (8) Smoker unmotivated to quit: Code(s): F17.200 - Nicotine dependence, unspecified, uncomplicated Plan: Patient strongly advised to stop smoking, as smoking damages blood vessels, degenerative of joints and spine, damage to lungs and heart., predisposes to developing certain cancers like lung, breast, bladder, colon. Recommended to try decreasing cigarette use by 1-2 cigarettes a day. Advised to monitor what triggers are for smoking so that this can be discussed on the next office visit. We can discuss different options to quit smoking when ready. (9) Solitary pulmonary nodule on lung CT: Code(s): R91.1 - Solitary pulmonary nodule Plan: Followed by Pulmonary Orders: Referrals Nephrology Referral E11.65 - Type 2 diabetes mellitus with hyperglycemia, N18.30 - Chronic kidney disease, stage 3 unspecified Coding Level of Care Code Est Pt [facility] Care [id number]) Diagnoses Annual visit for general adult medical examination with abnormal findings Z00.01 CKD (chronic kidney disease) stage 3, GFR 30-59 ml/min N18.30 Uncontrolled type 2 diabetes mellitus with hyperglycemia E11.65 Diabetes mellitus type: type 2 Mixed dyslipidemia E78.2 Type 2 diabetes mellitus with other diabetic kidney complication E11.29 Essential hypertension I10 Schizoaffective disorder F25.9 Smoker unmotivated to quit F17.200 Solitary pulmonary nodule on lung CT R91.1
== END 2023-09-14 13:57 | disposition home or self-care (01) ==
PROVIDERS: PCP Internal Medicine; Visit Provider Internal Medicine
DX: Z00.00 Encounter for general adult medical examination without abnormal findings (principal); N18.30 Chronic kidney disease, stage 3 unspecified; E11.65 Type 2 diabetes mellitus with hyperglycemia; E11.29 Type 2 diabetes mellitus with other diabetic kidney complication; F25.9 Schizoaffective disorder, unspecified; E78.2 Mixed hyperlipidemia; I10 Essential (primary) hypertension; F17.200 Nicotine dependence, unspecified, uncomplicated; R91.1 Solitary pulmonary nodule
CPT/HCPCS: 99396

== ENCOUNTER 2023-09-23 14:03 | Outpatient (AMB) | payer MEDICARE, MEDICAID, SELFPAY ==
[2023-09-23 14:05] VITALS: BP 110/76; PULSE 101; O2SAT 95; BMI 33.1
--- NOTE | 2023-09-23 14:05 | HO.NEPHOV_ITS ---
Vital Signs 09/23/23 14:05 Height 5 ft 8 in Weight 218 lb BMI 33.1 BP 110/76 Blood Pressure Location Lt brachial Position Sitting Pulse 101 H Pulse Source Pulse Oximeter Pulse Oximetry (%) 95 Oxygen Delivery Method Room Air Intake Visit Reasons: CKD/ Type2 Diabetes M[employer]/ [employer] Consultant Required: No Accompanied by: mend worker Allergies No Known Allergies Allergy (Verified 09/23/23 14:08) Medication List - Last Reconciled 09/23/23 by Bruce Ye MD acetaminophen (Tylenol Extra Strength) 500 mg PO Q12H PRN albuterol sulfate 90 mcg/actuation 2 puffs inhalation Q4-6H bisacodyl (Dulcolax (bisacodyl)) 10 mg (2 x 5 mg) PO BEDTIME PRN 2 days clozapine 200 mg PO BEDTIME docusate sodium 100 mg PO BID PRN empagliflozin 25 mg PO DAILY fenofibrate 160 mg PO DAILY ferrous fumarate 324 mg PO DAILY flash glucose scanning reader (AdMobiusStyle Maria D 2 [place]) As directed flash glucose sensor (FreeStyle Maria D 2 Sensor kit) As directed fluticasone propionate 50 mcg/actuation (Flonase Allergy Relief) 1 spray intranasal BEDTIME 30 days haloperidol 5 mg PO BID hydroxyzine HCl 25 mg PO BEDTIME PRN insulin degludec (Tresiba U-100 Insulin) 80 units subcut DAILY lorazepam 1 mg PO BID losartan 25 mg PO DAILY omeprazole 20 mg PO BID pen needle, diabetic (Comfort EZ [place]) inject insulin twice daily rosuvastatin 5 mg PO DAILY semaglutide (Ozempic) mg subcut umeclidinium-vilanterol 62.5-25 mcg/actuation (Anoro Ellipta) 1 ea PO DAILY HPI Comments Details: Matty is a middle-aged man with a history of schizoaffective disorder who was on lithium for many years. [place] was stopped 06/26/2022 He has a longstanding history of diabetes mellitus. History of chronic kidney disease. He was previously seen about a year ago and lost to follow-up. He has been referred again for management of CKD. Recent serum creatinine is 2.0 mg/dL with the EGFR of about 33 mL/minute. The blood pressure has been well controlled. He is currently on angiotensin receptor lesia along with Jardiance. He was on metformin which has been recently discontinued. He Smokes 2PPD [facility] Medical History (Updated 09/14/23 @ 13:48 by Rowena Cedeno MD) CKD (chronic kidney disease) stage 3, GFR 30-59 ml/min Tinea unguium Type 2 diabetes mellitus with diabetic polyneuropathy Type 2 diabetes mellitus with obesity CKD (chronic kidney disease) stage 4, GFR 15-29 ml/min Type 2 diabetes mellitus with complication, with long-term current use of insulin Uncontrolled diabetes mellitus with hyperglycemia Hypercalcemia Noncompliance with medication regimen Rash and nonspecific skin eruption Tremor Vitamin D deficiency Mixed dyslipidemia Restrictive airway disease Type 2 diabetes mellitus with other diabetic kidney complication Solitary pulmonary nodule on lung CT Smoker unmotivated to quit Obesity (BMI 30-39.9) Schizoaffective disorder Essential hypertension Surgical History No pertinent past surgical history Family History Father Unknown family medical history Mother Unknown family medical history Brother No problems noted. Sister No problems noted. Social History Housing: Other Housing Other:: [facility] Alcohol intake: never Patient Tobacco Use Status: Current everyday Tobacco user Cigarette Packs Per Day: 2 e-Cigarette/Vaping Use: Never Used service: No Current occupational status: disabled Cognitive needs: No Hearing needs: No Vision needs: Yes Review of Systems Const Denies fever(s) and Denies weight loss Card Denies chest pain Resp Denies cough and Denies hemoptysis GI Denies abdominal pain, Denies diarrhea and Denies nausea Musc Denies back pain Neuro Denies focal weakness Physical Exam Vital Signs: Last Vital Signs Pulse 101 H 09/23/23 14:05 BP 110/76 09/23/23 14:05 Pulse Ox 95 09/23/23 14:05 Oxygen Delivery Method Room Air 09/23/23 14:05 BMI result Body Mass Index 33.1 Const General: comfortable; No acute distress Orientation/consciousness: patient oriented x3 Eyes General: appearance normal, both eyes and all related structures Visual Gross: normal visual gross by confrontation Neck Neck: Yes supple and Yes no JVD Resp Effort & Inspection: normal respiratory effort and respiratory effort not decreased Auscultation: rhonchi Cardio Palpation: no palpable S3 and no palpable S4 Heart sounds: no rubs GI Inspection: Yes normal to inspection Palpation (GI): Soft to palpation Percussion: Yes normal to percussion Auscultation: normal bowel sounds General: Yes no CVA tenderness Back/Spine/Pelvis Back: no CVA tenderness Skin General skin exam: no petechiae and no purpura Neuro General: patient oriented x3 and no focal motor deficits Extrem General: No clubbing and No edema Results Reviewed Nephrology Results: Hgb 16.8 g/dl (14.0-18.0) 09/08/23 WBC 9.2 X10*3/uL (4.8-10.8) 09/08/23 Plt Count 203 X10*3/uL (160-400) 09/08/23 Sodium 133 mmol/L (135-145) L 09/08/23 Potassium 4.4 mmol/L (3.3-5.1) 09/08/23 Chloride 102 mmol/L (96-108) 09/08/23 Carbon Dioxide 22 mmol/L (22-29) 09/08/23 BUN 24 mg/dL (9-16) H 09/08/23 Creatinine 2.11 mg/dL (0.5-1.4) H 09/08/23 Calcium 9.9 mg/dL (8.4-10.2) 09/08/23 Urine Creatinine 18.64 mg/dL 09/08/23 Assessment & Plan Assessment & Plan (1) CKD (chronic kidney disease) stage 3, GFR 30-59 ml/min: Code(s): N18.30 - Chronic kidney disease, stage 3 unspecified Category: Medical Plan Matty has stage IIIB chronic kidney disease. CKD is most likely due to underlying diabetic kidney disease. He has been on lithium for a long time therefore lithium nephropathy can not be ruled out. At present he has no evidence of diabetes insipidus. He is no longer on lithium. Goal is to slow the portion of renal disease. Continue to maintain obtain blood pressure less than 130/80. Discussed importance of tight control blood sugar and A1c should be maintained less than 7%. Discussed importance of smoking cessation but he has no intention to quit. He will definitely benefit from weight loss. Given the degree of renal insufficiency I would avoid using metformin due to risk of lactic acidosis. We will continue to screen for comorbid conditions including anemia and secondary hyperparathyroidism prior to his next visit. Orders: Orders Comprehensive Met. Panel 3 Months N18.30 - Chronic kidney disease, stage 3 unspecified Total Protein Urine Random 3 Months N18.30 - Chronic kidney disease, stage 3 unspecified UA and rflx microscopic 3 Months N18.30 - Chronic kidney disease, stage 3 unspecified Parathyroid Hormone Intact 3 Months N18.30 - Chronic kidney disease, stage 3 unspecified Creatinine Urine 3 Months N18.30 - Chronic kidney disease, stage 3 unspecified Complete Blood Count Auto Diff 3 Months N18.30 - Chronic kidney disease, stage 3 unspecified Coding Level of Care Code New Pt Level 4 (41708) Diagnoses CKD (chronic kidney disease) stage 3, GFR 30-59 ml/min N18.30
== END 2023-09-23 15:06 | disposition home or self-care (01) ==
PROVIDERS: PCP Internal Medicine; Visit Provider Internal Medicine Hypertension Specialist
DX: N18.30 Chronic kidney disease, stage 3 unspecified (principal)
CPT/HCPCS: 99204

== ENCOUNTER → 2023-09-23 14:03 | Outpatient (BNVA) | payer MEDICARE, MEDICAID, SELFPAY | PROVIDERS: PCP Internal Medicine; Visit Provider Internal Medicine Hypertension Specialist | DX: E11.65 Type 2 diabetes mellitus with hyperglycemia (principal); E11.42 Type 2 diabetes mellitus with diabetic polyneuropathy; N18.30 Chronic kidney disease, stage 3 unspecified; Z91.148 Patient's other noncompliance with medication regimen for other reason | CPT/HCPCS: 99202 ==

== ENCOUNTER 2023-10-06 10:56 | Outpatient (REF) | payer MEDICARE, MEDICAID, SELFPAY ==
[2023-10-06 13:32] LABS: MANUAL DIFF FLAG NO
[2023-10-06 13:35] LABS: Basophils Percent Auto 0.2 % (0-2); Hematocrit 46.7 % (42.0-52.0); Hemoglobin 16.1 g/dl (14.0-18.0); Imm Gran Abs Auto 0.04 X10*3/uL (0.00-0.03); Imm Gran Pct Auto 0.4 % (0.0-0.4); Lymphocytes Absolute Auto 2.3 X10*3/uL (1.2-4.9); Lymphocytes Percent Auto 23.4 % (20-40); Mean Corpuscular HGB Conc 34.5 g/dl (31.0-36.0); Mean Corpuscular Hemoglobin 29.2 pg (27.0-33.0); Mean Corpuscular Volume 84.8 fL (80.0-98.0); Mean Platelet Volume 10.4 fL (9.4-12.4); Monocytes Absolute Auto 0.7 X10*3/uL (0.1-1.2); Monocytes Percent Auto 7.1 % (2-11); Neutrophils Absolute Auto 6.6 x10*3/uL (2.0-8.3); Neutrophils Percent Auto 68.9 % (45-73); Platelet Count 216 X10*3/uL (160-400); Red Blood Count 5.51 X10*6/uL (4.60-5.80); Red Cell Distribution Width 14.1 % (11.0-16.0); White Blood Count 9.6 X10*3/uL (4.8-10.8)
== END 2023-10-06 10:57 | disposition home or self-care (01) ==
LOC: HO.HMGCLR 10:56
PROVIDERS: PCP Internal Medicine; Visit Provider Clinical Nurse Specialist Psychiatric/Mental Health, Adult
DX: Z79.899 Other long term (current) drug therapy (principal)
CPT/HCPCS: 36415; 85025

== ENCOUNTER 2023-11-04 10:31 | Outpatient (REF) | payer MEDICARE, MEDICAID, SELFPAY ==
[2023-11-04 13:28] LABS: MANUAL DIFF FLAG NO
[2023-11-04 13:42] LABS: Basophils Percent Auto 0.1 % (0-2); Hematocrit 44.9 % (42.0-52.0); Hemoglobin 15.4 g/dl (14.0-18.0); Imm Gran Abs Auto 0.03 X10*3/uL (0.00-0.03); Imm Gran Pct Auto 0.3 % (0.0-0.4); Lymphocytes Absolute Auto 2.7 X10*3/uL (1.2-4.9); Lymphocytes Percent Auto 29.6 % (20-40); Mean Corpuscular HGB Conc 34.3 g/dl (31.0-36.0); Mean Corpuscular Hemoglobin 29.4 pg (27.0-33.0); Mean Corpuscular Volume 85.7 fL (80.0-98.0); Mean Platelet Volume 10.1 fL (9.4-12.4); Monocytes Absolute Auto 0.7 X10*3/uL (0.1-1.2); Monocytes Percent Auto 7.5 % (2-11); Neutrophils Absolute Auto 5.7 x10*3/uL (2.0-8.3); Neutrophils Percent Auto 62.5 % (45-73); Platelet Count 224 X10*3/uL (160-400); Red Blood Count 5.24 X10*6/uL (4.60-5.80); Red Cell Distribution Width 14.3 % (11.0-16.0); White Blood Count 9.2 X10*3/uL (4.8-10.8)
== END 2023-11-04 10:32 | disposition home or self-care (01) ==
LOC: HO.HMGCLR 10:31
PROVIDERS: PCP Internal Medicine; Visit Provider Clinical Nurse Specialist Psychiatric/Mental Health, Adult
DX: Z79.899 Other long term (current) drug therapy (principal)
CPT/HCPCS: 36415; 85025

== ENCOUNTER 2023-12-01 11:07 | Outpatient (AMB) | payer MEDICARE, MEDICAID, SELFPAY ==
--- NOTE | 2023-12-01 11:20 | MHC.OFFWIV ---
Intake Vital Signs 12/01/23 11:22 Height 5 ft 8 in Weight 220 lb BMI 33.4 BP 110/78 Blood Pressure Location Rt brachial Position Sitting Pulse 102 H Pulse Source Pulse Oximeter Pulse Oximetry (%) 97 Oxygen Delivery Method Room Air Intake Visit Reasons: EP RT hip pain Intake Note: Patient here for right hip pain that has been going on for about 1 week but yesterday it became severe. Patient Tobacco Use Status: Current everyday Tobacco user Allergies No Known Allergies Allergy (Verified 12/01/23 11:23) Do you need a note to return to daycare/school/sports/work: No HPI HPI Comments History of Present Illness Details Patient is a 43-year-old male here with his can worker complaining of 1 week of right hip pain. He states originally the pain was in his low back and now it is in his hip. He states it nothing seems to make it better but walking seems to make it worse. Patient denies any fevers, nausea, vomiting, diarrhea or urinary complaints. Patient's can worker had to give him a walker in order for him to be able to walk because the pain is so severe. She states he typically does not use a walker at baseline. [facility] Medical History (Updated 12/01/23 @ 11:48 by Angy Monroe PA-C) CKD (chronic kidney disease) stage 3, GFR 30-59 ml/min Tinea unguium Type 2 diabetes mellitus with diabetic polyneuropathy Type 2 diabetes mellitus with obesity CKD (chronic kidney disease) stage 4, GFR 15-29 ml/min Type 2 diabetes mellitus with complication, with long-term current use of insulin Uncontrolled diabetes mellitus with hyperglycemia Hypercalcemia Noncompliance with medication regimen Rash and nonspecific skin eruption Tremor Vitamin D deficiency Mixed dyslipidemia Restrictive airway disease Type 2 diabetes mellitus with other diabetic kidney complication Solitary pulmonary nodule on lung CT Smoker unmotivated to quit Obesity (BMI 30-39.9) Schizoaffective disorder Essential hypertension Surgical History No pertinent past surgical history Family History Father Unknown family medical history Mother Unknown family medical history Brother No problems noted. Sister No problems noted. Social History Housing: Other Housing Other:: residential Alcohol intake: never Patient Tobacco Use Status: Current everyday Tobacco user Cigarette Packs Per Day: 2 e-Cigarette/Vaping Use: Never Used service: No Current occupational status: disabled Cognitive needs: No Hearing needs: No Vision needs: Yes Review of Systems Const All systems reviewed & are unremarkable except as noted in HPI and below Physical Exam Vital Signs: Last Vital Signs Pulse 102 H 12/01/23 11:22 BP 110/78 12/01/23 11:22 Pulse Ox 97 12/01/23 11:22 Oxygen Delivery Method Room Air 12/01/23 11:22 BMI result Body Mass Index 33.4 Const General: cooperative, healthy appearing, comfortable, no acute distress and well developed Orientation/consciousness: patient oriented x3 Limitations: ambulation with walker (2/2 pain) HEENT Head: Yes normal to inspection Ears: hearing grossly normal bilaterally General nose exam: Normal external nose present Face and sinus: Yes normal facial exam Eyes General: appearance normal, both eyes and all related structures Neck Neck: Yes normal visual inspection and Yes full ROM Resp Effort & Inspection: normal respiratory effort and able to speak in complete sentences GI Inspection: Yes normal to inspection Male General Exam: Yes hernia (right inguinal, reducible when laying down) Skin General skin exam: no rashes or lesions noted Neuro General: patient oriented x3 Extrem General: Yes normal to inspection Assessment & Plan Assessment & Plan (1) Severe right inguinal pain: Code(s): R10.31 - Right lower quadrant pain Plan: Hernia is reducible when the patient lays down however is exquisitely painful when he stands up or tries to walk and is using a walker today because the pain is so severe. Recommended he go to the emergency department for an further workup to determine if strangulated or incarcerated. vacuum worker verbalized understanding and stated she will bring him to the emergency department right now. Called ahead to [facility] ED with expect. Plan See above Coding Level of Care Code Est Pt Level 5 (81245) Diagnoses Severe right inguinal pain R10.31
[2023-12-01 11:22] VITALS: BP 110/78; PULSE 102; O2SAT 97; BMI 33.4
== END 2023-12-01 13:41 | disposition home or self-care (01) ==
PROVIDERS: PCP Internal Medicine; Visit Provider Physician Assistant
DX: R10.31 Right lower quadrant pain (principal)

== ENCOUNTER → 2023-12-01 11:07 | Outpatient (BNVA) | payer MEDICARE, MEDICAID, SELFPAY | PROVIDERS: PCP Internal Medicine ==

== ENCOUNTER 2023-12-01 11:47 | Outpatient (REF) | payer MEDICARE, MEDICAID, SELFPAY ==
[2023-12-01 13:41] LABS: MANUAL DIFF FLAG NO
[2023-12-01 14:01] LABS: Hematocrit 43.6 % (42.0-52.0); Hemoglobin 15.1 g/dl (14.0-18.0); Imm Gran Abs Auto 0.05 X10*3/uL (0.00-0.03); Imm Gran Pct Auto 0.5 % (0.0-0.4); Lymphocytes Absolute Auto 2.3 X10*3/uL (1.2-4.9); Lymphocytes Percent Auto 23.5 % (20-40); Mean Corpuscular HGB Conc 34.6 g/dl (31.0-36.0); Mean Corpuscular Volume 83.8 fL (80.0-98.0); Mean Platelet Volume 10.4 fL (9.4-12.4); Monocytes Absolute Auto 0.8 X10*3/uL (0.1-1.2); Monocytes Percent Auto 8.5 % (2-11); Neutrophils Absolute Auto 6.6 x10*3/uL (2.0-8.3); Neutrophils Percent Auto 67.5 % (45-73); Platelet Count 234 X10*3/uL (160-400); Red Cell Distribution Width 14.5 % (11.0-16.0); White Blood Count 9.7 X10*3/uL (4.8-10.8)
== END 2023-12-01 11:48 | disposition home or self-care (01) ==
LOC: HO.HMGCLR 11:47
PROVIDERS: Visit Provider Clinical Nurse Specialist Psychiatric/Mental Health, Adult
DX: Z79.899 Other long term (current) drug therapy (principal); R10.31 Right lower quadrant pain
CPT/HCPCS: 36415; 85025; 99212

== ENCOUNTER 2023-12-01 12:40 | Emergency (ER) | payer MEDICARE, MEDICAID, SELFPAY ==
--- NOTE | ~2023-12-01 | US_ITS ---
EXAMINATION: US right inguinal region, LIMITED CLINICAL INFORMATION: Right inguinal hernia. Pain. COMPARISON: None available. TECHNIQUE: Grayscale ultrasound and color Doppler exam right inguinal region. FINDINGS: There is no inguinal hernia. There are morphologically normal-appearing lymph nodes. Largest has a short axis diameter 0.8 cm. No pathologically enlarged lymph nodes. No fluid collection mass or inflammation. US/US pelvic limited IMPRESSION: No acute abnormality. No inguinal hernia. Electronically signed by: Micheal Sims MD 12/01/2023 03:33 PM EDT
--- NOTE | ~2023-12-01 | CT_ITS ---
EXAMINATION: CT ABDOMEN AND PELVIS WITHOUT CONTRAST CLINICAL INFORMATION: Right hip/groin pain, evaluate for inguinal hernia. COMPARISON: Pelvic ultrasound 12/01/2023. TECHNIQUE: Multidetector volumetric imaging was performed from the superior aspect of the liver through the pubic symphysis. Sagittal and coronal reformatted images were obtained on the technologist's workstation. This CT examination was performed using dose optimization techniques as appropriate, variously including the following: *Automated exposure control *Adjustment of mA and/or kV according to patient size (this includes techniques or standardized protocols for targeted exams where dose is matched to indication/reason for exam; i.e. extremities or head) *Use of iterative reconstruction technique DLP: 788 mGy-cm FINDINGS: The lack of intravenous contrast limits evaluation of the solid visceral organs including the liver, spleen, pancreas, and kidneys. LUNG BASES: Well-defined oblong-shaped fissural based solid nodule measuring 1 cm along the anterior aspect of the right major fissure in the right middle lobe (4:27), unchanged dating back to 2020, most suggestive with a lymph node, for which no imaging follow-up is recommended. Small calcified granuloma in the right lower lobe (4:3). No focal consolidation or pleural effusion. LIVER, GALLBLADDER, AND BILIARY TREE: The liver is normal in size, shape, and attenuation. No focal hepatic lesion or biliary ductal dilatation is present. The gallbladder is unremarkable with no evidence of radiopaque gallstones, gallbladder wall thickening, or obvious pericholecystic inflammatory changes. PANCREAS: Diffuse fatty infiltration. No main ductal dilatation. No peripancreatic inflammatory changes. SPLEEN: Enlarged measuring 13.8 cm craniocaudally. ADRENAL GLANDS: Unremarkable. KIDNEYS AND URETERS: The kidneys are normal in size, shape, and attenuation. No hydronephrosis, hydroureter, or calculi seen. No perinephric stranding. BLADDER: Unremarkable. GASTROINTESTINAL TRACT: The stomach and the small bowel are nondilated. Normal appendix. A few colonic diverticuli without pericolonic inflammatory changes to suspect acute diverticulitis. No evidence of bowel obstruction. ABDOMINAL WALL: Small fat-containing left inguinal hernia and umbilical hernia. No right inguinal hernia. Trace superficial symmetric fat stranding in the soft tissues of the lower anterior abdominal wall (3:66), suggestive of injection sites. LYMPH NODES: No lymphadenopathy by CT short axis size criteria. VASCULAR: Normal caliber of the abdominal aorta. Mild atherosclerotic disease. PELVIC VISCERA: Unremarkable. OSSEOUS STRUCTURES: No acute or aggressive appearing osseous findings. CT/CT abdomen pelvis wo IV con IMPRESSION: 1. Small fat-containing left inguinal hernia and umbilical hernia. No right inguinal hernia. 2. Mild diverticulosis but no evidence of acute diverticulitis. 3. Nonspecific splenomegaly. Electronically signed by: Ronda Quiñones MD 12/01/2023 06:31 PM EDT
--- NOTE | ~2023-12-01 | XR_ITS ---
EXAMINATION: XR PELVIS XR HIP, RIGHT CLINICAL INFORMATION: Pain. COMPARISON: CT abdomen and pelvis from 12/01/2023. TECHNIQUE: Single AP radiograph of the pelvis. Two views of the right hip (AP and lateral). FINDINGS: No fracture or dislocation of the pelvis. The iliopectineal, ilioischial, and sacral arcuate lines remain intact. The sacroiliac joints remain in normal alignment on the limited view. The femoral heads remain well aligned with their respective acetabula on the single AP view. Mild degenerative arthropathy of the bilateral hip joints. No radiopaque foreign bodies. No fracture or dislocation of the right hip. The femoral head remains well-seated in the acetabulum. The trabecular lines remain intact. Mild degenerative loss of hip joint space. No lytic or sclerotic osseous lesions. No focal soft tissue swelling. No radiopaque foreign bodies. XR/XR hip RT w PEL1V IMPRESSION: 1. No evidence of acute fracture or dislocation of the pelvis or right hip. 2. 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 Electronically signed by: Sang Burdick DO 12/01/2023 08:44 PM EDT
--- NOTE | 2023-12-01 12:42 | ED_ITS ---
HPI - General Adult General Chief complaint: Abdominal Pain Stated complaint: urg care sent for hernia Time Seen by Provider: 12/01/23 15:56 Source: patient Mode of arrival: ambulatory Limitations: no limitations History of Present Illness HPI narrative: Patient is a 43-year-old male who presents to the emergency department for evaluation with referral from walk-in clinic. He presented there today for evaluation of pain to his right hip that is also felt within the right groin region over the past 4-5 days by his account. He states that previously he was experiencing pain across his right lower back for a couple of months, that was worse with ambulation. He was given a walker today by his long-term staff because the pain was so severe. He denies fevers or chills, nausea, vomiting, diarrhea, constipation, dysuria, urinary frequency/urgency/hesitancy. Denies having any known history of an inguinal hernia. States that he was told at the walk-in clinic that he had a large hernia that needed evaluation and may be the cause for his pain Related Data Home Medications ?Medication ?Instructions ?Recorded ?Confirmed clozapine 200 mg tablet 200 mg PO BEDTIME 04/03/20 09/23/23 haloperidol 5 mg tablet 5 mg PO BID 04/03/20 09/23/23 lorazepam 1 mg tablet 1 mg PO BID 04/03/20 09/23/23 acetaminophen 500 mg tablet 500 mg PO Q12H PRN Pain 10/21/22 09/23/23 (Tylenol Extra Strength) albuterol sulfate 90 mcg/actuation 2 puff inhalation Q4-6H for 02/01/23 09/23/23 aerosol inhaler wheezing insulin degludec 100 unit/mL 80 unit subcut DAILY 05/19/23 09/23/23 subcutaneous solution (Tresiba U-100 Insulin) semaglutide 1 mg/dose (4 mg/3 mL) mg subcut 09/14/23 09/23/23 subcutaneous pen injector (Ozempic) hydroxyzine HCl 25 mg tablet 25 mg PO BEDTIME PRN 09/23/23 09/23/23 Previous Rx's ?Medication ?Instructions ?Recorded docusate sodium 100 mg capsule 100 mg PO BID PRN constipation #60 05/15/20 caps fluticasone propionate 50 1 spray intranasal BEDTIME 30 days 01/28/23 mcg/actuation nasal #16 grams spray,suspension (Flonase Allergy Relief) flash glucose scanning reader #1 ea 02/01/23 (FreeStyle Maria D 2 [place]) flash glucose sensor (FreeStyle #1 ea 02/01/23 Maria D 2 Sensor kit) empagliflozin 25 mg tablet 25 mg PO DAILY #30 tabs 05/19/23 fenofibrate 160 mg tablet 160 mg PO DAILY #90 tabs 06/30/23 umeclidinium 62.5 mcg-vilanterol 1 ea PO DAILY #60 ea 07/06/23 25 mcg/actuation powdr for inhalation (Anoro Ellipta) ferrous fumarate 324 mg (106 mg 324 mg PO DAILY #90 tabs 08/03/23 iron) tablet bisacodyl 5 mg tablet,delayed 10 mg (2 x 5 mg) PO BEDTIME PRN 09/16/23 release (Dulcolax (bisacodyl)) constipation 2 days #4 tabs omeprazole 20 mg capsule,delayed 20 mg PO BID #180 caps 09/17/23 release losartan 25 mg tablet 25 mg PO DAILY #90 tabs 10/18/23 rosuvastatin 5 mg tablet 5 mg PO DAILY #30 tabs 11/19/23 pen needle, diabetic 33 gauge x #100 ea 11/22/23 3/16 (Comfort EZ Pen [place]) Allergies Allergy/AdvReac Type Severity Reaction Status Date / Time No Known Allergies Allergy Verified 12/01/23 12:50 Review of Systems 2 Review of Systems: Yes all other systems are reviewed and are negative PMFSH Past Medical History Attestation statement: The following information was validated with the patient. Source: old records reviewed Medical History CKD (chronic kidney disease) stage 3, GFR 30-59 ml/min Tinea unguium Type 2 diabetes mellitus with diabetic polyneuropathy Type 2 diabetes mellitus with obesity CKD (chronic kidney disease) stage 4, GFR 15-29 ml/min Type 2 diabetes mellitus with complication, with long-term current use of insulin Uncontrolled diabetes mellitus with hyperglycemia Hypercalcemia Noncompliance with medication regimen Rash and nonspecific skin eruption Tremor Vitamin D deficiency Mixed dyslipidemia Restrictive airway disease Type 2 diabetes mellitus with other diabetic kidney complication Solitary pulmonary nodule on lung CT Smoker unmotivated to quit Obesity (BMI 30-39.9) Schizoaffective disorder Essential hypertension Surgical History No pertinent past surgical history Family History Family History Father Unknown family medical history Mother Unknown family medical history Brother No problems noted. Sister No problems noted. Social History Social History Housing: Other Housing Other:: long-term Alcohol intake: never Patient Tobacco Use Status: Current everyday Tobacco user Cigarette Packs Per Day: 2 Smoked in Last 30 Days: Yes e-Cigarette/Vaping Use: Never Used Use of substances other than those prescribed or required for medical reasons: Yes Substance Use Type: Marijuana Substance Use Frequency: Occasionally Advance Directives: No Do you have a plan to hurt others: No Plan service: No Current occupational status: disabled Cognitive needs: No Hearing needs: No Vision needs: Yes Physical Exam ED Vital Signs: Vital Signs - 24 hr 12/01/23 12:44 12/01/23 14:57 12/01/23 16:28 Temperature 98.4 F 98.2 F 97.6 F Pulse Rate 95 86 82 Respiratory Rate 16 16 16 Blood Pressure 121/79 126/79 137/85 Pulse Oximetry 98 99 99 Oxygen Delivery Method Room Air Room Air Room Air 12/01/23 17:06 12/01/23 20:20 Temperature 98.2 F 98.2 F Pulse Rate 87 87 Respiratory Rate 16 16 Blood Pressure 132/88 132/88 Pulse Oximetry 94 94 Oxygen Delivery Method Room Air Room Air BMI result Body Mass Index 33.4 Appearance: Alert.?Oriented to person, place and time. No acute distress.?Normal affect. Eyes: Pupils equal, round and reactive to light.? ENT: Pharynx normal.?? Neck: Normal inspection.? Neck supple.?? CVS: Heart sounds normal. Normal heart rate and rhythm.? Pulses normal.?? Respiratory: No respiratory distress.? Lung sounds clear to auscultation bilaterally?? Abdomen: Soft right lower quadrant tenderness upon palpation, no appreciable inguinal hernia Normoactive bowel sounds. Skin: Skin warm and dry.? Normal skin color.? Extremities: No lower extremity edema.? No calf ttp?2+ DP/PT pulse bilaterally, decreased AROM to the right hip Neuro: Moves all extremities spontaneously. Sensation intact bilaterally. CN II- XII intact. No focal neuro deficits. Ambulates with normal steady gait. Course Course Course Narrative: This is a rapid medical exam performed by Mable Negron NP: Additional HPI, ROS, PE not included below will be deferred to primary provider. Patient is a 43-year-old male referred to ED by urgent care provider for evaluation of right inguinal and hip pain x 1 week. Difficulty with ambulation due to pain. Per UC provider, patient had reducible inguinal hernia but ongoing severe pain. Patient denies any difficulty urinating or having a bowel movement. Plan: labs, UA, will need CT Reevaluation(s) Reevaluation #1: CT abdomen and pelvis without evidence of a right inguinal hernia, noted small fat containing left inguinal hernia and umbilical hernia, no evidence of strangulation. Mild diverticulosis but no diverticulitis. Normal appendix. Time: 18:58 Medications Administered Discontinued Medications Generic Name Dose Route Start Last Admin Trade Name Freq PRN Reason Stop Dose Admin Morphine Sulfate 4 mg 12/01/23 16:31 12/01/23 17:04 Morphine Sulfate 4 Mg/Ml Cartridge IVPUSH 12/01/23 16:32 4 mg ONCE ONE Administration Protocol Ondansetron HCl 4 mg 12/01/23 16:31 12/01/23 17:04 Ondansetron Hcl 4 Mg/2 Ml Vial IVPUSH 12/01/23 16:32 4 mg ONCE ONE Administration Medical Decision Making Medical Decision Making MDM Narrative: Patient is a 43-year-old male with past medical history of CKD, type 2 diabetes with polyneuropathy and long-term insulin usage, dyslipidemia, restrictive airway disease, pulmonary nodule, obesity, schizoaffective disorder, hypertension presenting to emergency department for evaluation of right hip/groin pain as per HPI. At the time of my evaluation I am unable to appreciate the inguinal hernia despite my efforts for patient to increase his intra-abdominal pressure while supine, nor on standing. He does have exquisite tenderness upon palpation in his right inguinal region and upon palpation of his right lateral hip. No tenderness in the lumbar region or along the SI joint. Plan to obtain serum labs and CT of the abdomen and pelvis for further evaluation Differential Diagnosis Differential Diagnoses: The differential diagnosis associated with the presentation includes (Inguinal hernia, incarcerated/strangulated hernia, osteoarthritis of the right hip, appendicitis) Admission/Observation Consideration of admission/observation: Escalation of care including admission/observation considered (See narrative above in course narrative for further detail) Lab Data MDM Lab Attestation statement: I reviewed the patient's lab results. Urinalysis without evidence of infection or microscopic hematuria. No electrolyte derangement. Renal function at baseline. No lactic acidosis. LFTs within normal range. CBC is without leukocytosis anemia or thrombocytopenia. 12/01/23 12:56 12/01/23 12:56 Labs: Lab Results 12/01/23 12/01/23 Range/Units 12:56 14:54 WBC 10.8 (4.8-10.8) X10*3/uL RBC 5.32 (4.60-5.80) X10*6/uL Hgb 15.3 (14.0-18.0) g/dl Hct 43.4 (42.0-52.0) % MCV 81.6 (80.0-98.0) fL MCH 28.8 (27.0-33.0) pg MCHC 35.3 (31.0-36.0) g/dl RDW 14.3 (11.0-16.0) % Plt Count 225 (160-400) X10*3/uL MPV 10.0 (9.4-12.4) fL Immature Gran % (Auto) 0.4 (0.0-0.4) % Neut % (Auto) 65.1 (45-73) % Lymph % (Auto) 26.3 (20-40) % [place] % (Auto) 8.0 (2-11) % Eos % (Auto) 0.0 (0-4) % Baso % (Auto) 0.2 (0-2) % Lymph # (Auto) 2.8 (1.2-4.9) X10*3/uL [place] # (Auto) 0.9 (0.1-1.2) X10*3/uL Eos # (Auto) 0.0 (0.0-0.4) X10*3/uL Baso # (Auto) 0.0 (0.0-0.2) X10*3/uL Abs Immat Gran (auto) 0.04 H (0.00-0.03) X10*3/uL Absolute Neuts (auto) 7.0 (2.0-8.3) x10*3/uL Absolute Nucleated RBC 0.000 (0.0-0.012) X10*3/uL Nucleated RBC % (auto) 0.0 (0.0-0.2) /100WBC Sodium 139 (135-145) mmol/L Potassium 4.6 (3.3-5.1) mmol/L Chloride 108 (96-108) mmol/L Carbon Dioxide 20 L (22-29) mmol/L Anion Gap 16 (12-20) BUN 33 H (9-16) mg/dL Creatinine 2.33 H (0.5-1.4) mg/dL Estim Creat Clear Calc 46.3 Estimated GFR 31 Random Glucose 298 H (60-115) mg/dL Lactic Acid 1.5 (0.5-2.0) mmol/L Calcium 10.2 (8.4-10.2) mg/dL Total Bilirubin 0.2 (0.0-1.0) mg/dL AST 7 (5-37) U/L ALT 15 (0-40) U/L Alkaline Phosphatase 88 (39-117) U/L Total Protein 7.8 (6.5-8.0) g/dL Albumin 4.1 (3.5-5.0) g/dL Urine Color Yellow Urine Appearance Clear Urine pH 5.5 (5.0-9.0) Ur Specific [place] 1.015 (1.005-1.025) Urine Protein Negative (Neg-Trace) mg/dL Urine Glucose (UA) >=1000 H (Negative) mg/dL Urine Ketones Negative (Negative) mg/dL Urine Blood Negative (Negative) Urine Nitrite Negative (Negative) Ur Leukocyte Esterase Negative (Negative) Urine RBC 0-2 (0-2) /HPF Urine WBC 0-5 (0-5) /HPF Ur Squamous Epith Cells 0-2 (0-2) /HPF Urine Bacteria None Seen (None Seen) Hyaline Casts 0-2 (0-2) /LPF Independent Interpretation I performed an independent interpretation of an: Plain X-Ray (No fractures of the right hip) Radiology Impression Discussion of test interpretation with radiology: I have reviewed the radiologist's reading. Radiologist Impression: US/US pelvic limited IMPRESSION: No acute abnormality. No inguinal hernia. CT/CT abdomen pelvis wo IV con IMPRESSION: 1. Small fat-containing left inguinal hernia and umbilical hernia. No right inguinal hernia. 2. Mild diverticulosis but no evidence of acute diverticulitis. 3. Nonspecific splenomegaly. XR/XR hip RT w PEL1V IMPRESSION: 1. No evidence of acute fracture or dislocation of the pelvis or right hip. 2. 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 External Record Review External record reviewed: Outpatient record (Walk-in clinic visit earlier today) Had large reducible right inguinal hernia on examination - provider concern for strangulation/incarceration Prescription Management I considered prescription management with: Pain Medication Chronic Conditions Patient?s care impacted by: Diabetes and Hypertension Critical Care Time Critical Care Time Critical Care Time: Yes Total Critical Care Time: 35 Attestation: I personally attest to this critical care time spent taking care of the patient exclusive of all other billable procedures was approximately 35 minutes including initial evaluation of patient, ordering tests, morphine IV and re- evaluation, documentation, re-evaluation. Discharge Plan Discharge Clinical Impression: Acute pain of right hip Patient Disposition: Home, Self-Care Instructions: Hip Pain (ED) Additional Instructions: Imaging does not show evidence of any fracture to the hip. A CT scan of the abdomen and pelvis was obtained, there was concern when he was evaluated at urgent care for a right inguinal hernia, this hernia is not appreciated at the time of evaluation in the emergency department, no findings on CT scan concerning for a complicated hernia. Given your recent report of lower back pain, you can get neuropathic pain that can travel into the leg and hip. Please follow-up closely with primary care doctor. Apply ice to the area for 10-15 minutes 3-4 times daily, use the walker as needed to help facilitate walking Prescriptions: No Action docusate sodium 100 mg capsule 100 mg PO BID PRN (Reason: constipation) Qty: 60 0RF fenofibrate 160 mg tablet 160 mg PO DAILY Qty: 90 4RF Anoro Ellipta 62.5-25 mcg/actuation blister with device 1 ea PO DAILY Qty: 60 2RF ferrous fumarate 324 mg (106 mg iron) tablet 324 mg PO DAILY Qty: 90 0RF Rx Instructions: take with Vitamin C tablets or orange juice bisacodyl [Dulcolax (bisacodyl)] 5 mg tablet,delayed release (DR/EC) 10 mg PO BEDTIME PRN (Reason: constipation) 2 Days Qty: 4 0RF omeprazole 20 mg capsule,delayed release(DR/EC) 20 mg PO BID Qty: 180 0RF losartan 25 mg tablet 25 mg PO DAILY Qty: 90 0RF rosuvastatin 5 mg tablet 5 mg PO DAILY Qty: 30 0RF (DME) pen needle, diabetic [Comfort EZ Pen [place]] 33 gauge x 3/16 needle See Rx Instructions .Route Qty: 100 4RF Rx Instructions: inject insulin twice daily lorazepam 1 mg tablet 1 mg PO BID clozapine 200 mg tablet 200 mg PO BEDTIME haloperidol 5 mg tablet 5 mg PO BID acetaminophen [Tylenol Extra Strength] 500 mg tablet 500 mg PO Q12H PRN (Reason: Pain) Ozempic 1 mg/dose (4 mg/3 mL) pen injector subcut albuterol sulfate 90 mcg/actuation HFA aerosol inhaler 2 puff inhalation Q4-6H (DME) FreeStyle Maria D 2 Sensor Kit See Rx Instructions .Route Qty: 1 5RF Rx Instructions: As directed (DME) FreeStyle Maria D 2 [place] Misc See Rx Instructions .Route Qty: 1 5RF Rx Instructions: As directed insulin degludec [Tresiba U-100 Insulin] 100 unit/mL solution 80 unit subcut DAILY empagliflozin 25 mg tablet 25 mg PO DAILY Qty: 30 6RF Rx Instructions: Take 1 tablet 1 hour before breakfast fluticasone propionate [Flonase Allergy Relief] 50 mcg/actuation spray,suspension 1 spray intranasal BEDTIME 30 Days Qty: 16 6RF Rx Instructions: administer into each nostril hydroxyzine HCl 25 mg tablet 25 mg PO BEDTIME PRN Referrals: Rowena Cedeno MD [Primary Care Provider] - Interventions: ED Discharge Assessment Last Done: 12/01/23 20:20 Discharge Date/Time: 12/01/23 19:51 Print Language: Italian
[2023-12-01 12:44] VITALS: BP 121/79; PULSE 95; RESP 16; TEMP 36.9; O2SAT 98; BMI 33.4
[2023-12-01 13:04] LABS: MANUAL DIFF FLAG NO
[2023-12-01 13:07] LABS: Basophils Percent Auto 0.2 % (0-2); Hematocrit 43.4 % (42.0-52.0); Hemoglobin 15.3 g/dl (14.0-18.0); Imm Gran Abs Auto 0.04 X10*3/uL (0.00-0.03); Imm Gran Pct Auto 0.4 % (0.0-0.4); Lymphocytes Absolute Auto 2.8 X10*3/uL (1.2-4.9); Lymphocytes Percent Auto 26.3 % (20-40); Mean Corpuscular HGB Conc 35.3 g/dl (31.0-36.0); Mean Corpuscular Hemoglobin 28.8 pg (27.0-33.0); Mean Corpuscular Volume 81.6 fL (80.0-98.0); Monocytes Absolute Auto 0.9 X10*3/uL (0.1-1.2); Neutrophils Percent Auto 65.1 % (45-73); Platelet Count 225 X10*3/uL (160-400); Red Blood Count 5.32 X10*6/uL (4.60-5.80); Red Cell Distribution Width 14.3 % (11.0-16.0); White Blood Count 10.8 X10*3/uL (4.8-10.8)
[2023-12-01 13:24] LABS: Lactic Acid 1.5 mmol/L (0.5-2.0)
[2023-12-01 13:28] LABS: Alanine Aminotransferase 15 U/L (0-40); Albumin Level 4.1 g/dL (3.5-5.0); Alkaline Phosphatase 88 U/L (39-117); Anion Gap 16 (12-20); Aspartate Amino Transferase 7 U/L (5-37); Bilirubin Total 0.2 mg/dL (0.0-1.0); Blood Urea Nitrogen 33 mg/dL (9-16); Calcium 10.2 mg/dL (8.4-10.2); Carbon Dioxide 20 mmol/L (22-29); Chloride 108 mmol/L (96-108); Creatinine Clr Calc Pharmacy 46.3; Estimated Glomerular Filt Rate 31; Glucose Random 298 mg/dL (60-115); Potassium 4.6 mmol/L (3.3-5.1); Sodium 139 mmol/L (135-145); Total Protein 7.8 g/dL (6.5-8.0)
[2023-12-01 14:57] VITALS: BP 126/79; PULSE 86; RESP 16; TEMP 36.8; O2SAT 99
[2023-12-01 15:22] LABS: Appearance Urine Clear; Color Urine Yellow; Glucose Urine UA >=1000 mg/dL (Negative); Leukocyte Esterase Urine Negative (Negative); Nitrite Urine Negative (Negative); PH 5.5 (5.0-9.0); Specific Gravity - Urine 1.015 (1.005-1.025); UMIC TRIGGER UACC YES; Urine Blood Negative (Negative); Urine Ketones Negative (Negative); Urine Protein Negative (Neg-Trace)
[2023-12-01 15:24] LABS: Bacteria Urine None Seen (None Seen); Hyaline Casts Urine 0-2 /LPF (0-2); RBC Urine 0-2 /HPF (0-2); Squamous Epithelial Cell Urine 0-2 /HPF (0-2); WBC Urine 0-5 /HPF (0-5)
[2023-12-01 16:28] VITALS: BP 137/85; PULSE 82; RESP 16; TEMP 36.4; O2SAT 99
[2023-12-01] MEDS: Morphine Sulfate 4 MG/ML CARTRIDGE IVPUSH (17:04)
[2023-12-01] MEDS: ondansetron HCL 4 MG/2 ML VIAL IVPUSH (17:04)
[2023-12-01 17:06] VITALS: BP 132/88; PULSE 87; RESP 16; TEMP 36.8; O2SAT 94
[2023-12-01 20:20] VITALS: BP 132/88; PULSE 87; RESP 16; TEMP 36.8; O2SAT 94
== END 2023-12-01 19:51 | disposition home or self-care (01) ==
PROVIDERS: Registered Nurse Emergency; Emergency Provider Internal Medicine; PCP Internal Medicine
DX: M25.551 Pain in right hip (principal); R10.31 Right lower quadrant pain; F17.210 Nicotine dependence, cigarettes, uncomplicated
CPT/HCPCS: 36415; 73502; 74176; 76857; 80053; 81001; 83605; 85025; 96374; 96375; 99284; J2270; J2405

== ENCOUNTER 2023-12-04 08:52 | Emergency (ER) | payer MEDICARE, MEDICAID, SELFPAY ==
--- NOTE | ~2023-12-04 | CT_ITS ---
EXAMINATION: CT HIP WITHOUT CONTRAST, RIGHT CLINICAL INFORMATION: Right hip COMPARISON: Radiographs 12/01/2023 TECHNIQUE: Multidetector volumetric imaging was obtained through the right hip without contrast material. Multiplanar reformatted images were submitted in coronal and sagittal planes. This CT examination was performed using dose optimization techniques as appropriate, variously including the following: *Automated exposure control *Adjustment of mA and/or kV according to patient size (this includes techniques or standardized protocols for targeted exams where dose is matched to indication/reason for exam; i.e. extremities or head) *Use of iterative reconstruction technique DLP: 276 mGy-cm FINDINGS: No acute fracture or malalignment. Mild right hip osteoarthritis with small marginal osteophytes along the superior acetabular rim. Small focus of calcification at the gluteus minimus insertion onto the greater trochanter may represent calcific tendinitis. No adenopathy. Mild L5-S1 degenerative disc disease and facet arthrosis. CT/CT hip RT wo IV con IMPRESSION: No acute fracture or malalignment. Mild right hip osteoarthritis. Gluteus minimus insertional calcific tendinitis. Electronically signed by: Douglas King MD 12/04/2023 11:19 AM EDT
[2023-12-04 09:01] VITALS: BP 140/80; BP 144/83; PULSE 102; PULSE 95; RESP 18; TEMP 36.4; O2SAT 97; O2SAT 98; BMI 34.2
--- NOTE | 2023-12-04 10:11 | ED.BACK ---
HPI - Back Pain/Injury General Chief Complaint: Back Pain/Injury Stated Complaint: R HIP PAIN,AMB W/WALKER PER EMS Time Seen by Provider: 12/04/23 09:53 Source: patient and EMS Mode of arrival: EMS Limitations: no limitations History of Present Illness ED Provider: Rhoda Claire APRN HPI Narrative: 43 yo male with past medical history of IDDM, high cholesterol, chronic kidney disease, schizoaffective disorder who presents the ER with complaints of right hip pain for the last few weeks. Patient reports he was seen here on November 30 and was discharged home after some imaging with recommendation to take Tylenol for pain. Reports he has been taking Tylenol every 3-4 hours with continued pain. Denies any injury or trauma. He reports pain begins in his right hip and at times shoots down the right leg. He denies any associated numbness, tingling, weakness, swelling. He does live alone and is having difficulty with ambulation Related Data Home Medications ?Medication ?Instructions ?Recorded ?Confirmed clozapine 200 mg tablet 200 mg PO DAILY 04/03/20 12/04/23 haloperidol 5 mg tablet 5 mg PO BID 04/03/20 12/04/23 acetaminophen 500 mg tablet 500 mg PO Q12H PRN Pain 10/21/22 12/04/23 (Tylenol Extra Strength) albuterol sulfate 90 mcg/actuation 2 puff inhalation Q6H PRN for 02/01/23 12/04/23 aerosol inhaler wheezing insulin degludec 100 unit/mL 45 unit subcut DAILY 05/19/23 12/04/23 subcutaneous solution (Tresiba U-100 Insulin) semaglutide 1 mg/dose (4 mg/3 mL) 1 mg subcut TH@0900 09/14/23 12/04/23 subcutaneous pen injector (Ozempic) docusate sodium 100 mg capsule 100 mg PO BEDTIME 12/04/23 12/04/23 docusate sodium 100 mg capsule 200 mg PO DAILY constipation 12/04/23 12/04/23 Previous Rx's ?Medication ?Instructions ?Recorded fluticasone propionate 50 1 spray intranasal BEDTIME 30 days 01/28/23 mcg/actuation nasal #16 grams spray,suspension (Flonase Allergy Relief) flash glucose scanning reader #1 ea 02/01/23 (FreeStyle Maria D 2 [place]) flash glucose sensor (FreeStyle #1 ea 02/01/23 Maria D 2 Sensor kit) empagliflozin 25 mg tablet 25 mg PO DAILY #30 tabs 05/19/23 fenofibrate 160 mg tablet 160 mg PO DAILY #90 tabs 06/30/23 umeclidinium 62.5 mcg-vilanterol 1 ea PO DAILY #60 ea 07/06/23 25 mcg/actuation powdr for inhalation (Anoro Ellipta) ferrous fumarate 324 mg (106 mg 324 mg PO DAILY #90 tabs 08/03/23 iron) tablet bisacodyl 5 mg tablet,delayed 10 mg (2 x 5 mg) PO BEDTIME PRN 09/16/23 release (Dulcolax (bisacodyl)) constipation 2 days #4 tabs omeprazole 20 mg capsule,delayed 20 mg PO BID #180 caps 09/17/23 release losartan 25 mg tablet 25 mg PO DAILY #90 tabs 10/18/23 rosuvastatin 5 mg tablet 5 mg PO DAILY #30 tabs 11/19/23 pen needle, diabetic 33 gauge x #100 ea 11/22/2305/14 (Comfort EZ Pen [place]) Allergies Allergy/AdvReac Type Severity Reaction Status Date / Time No Known Allergies Allergy Verified 12/04/23 09:03 Review of Systems Review of Systems: Yes all other systems are reviewed and are negative Constitutional: Constitutional: Reports no additional constitutional complaints, Denies body ache(s), Denies chills, Denies fever(s), Denies headache(s), Denies night sweats, Denies weakness and Denies weight loss Eyes: Eyes: Reports no additional eye complaints and Denies change in vision ENT: Reports system reviewed and no additional complaints, except as documented, Denies dizziness, Denies headache(s), Denies nasal congestion, Denies nasal discharge and Denies neck pain Cardiovascular: Cardiovascular: Reports no additional cardiovascular complaints, Denies chest pain, Denies leg edema and Denies dyspnea Respiratory: Respiratory: Reports no additional respiratory complaints, Denies cough and Denies dyspnea Gastrointestinal: Gastrointestinal: Reports no additional gastrointestinal complaints, Denies abdominal pain, Denies diarrhea, Denies nausea and Denies vomiting Genitourinary: Genitourinary: Denies urinary incontinence Musculoskeletal: Musculoskeletal: Reports no additional musculoskeletal complaints, Denies back pain, Reports arthralgias, Denies joint swelling, Denies neck pain, Denies numbness, Reports radiating pain into limb and Denies tingling Integumentary/Breasts: Skin/Breast: Reports system reviewed and no additional complaints, except as docu and Denies rash Neurologic: Reports system reviewed and no additional complaints, except as documented, Denies Abnormal speech present, Denies dizziness, Denies headache(s), Denies numbness, Denies tingling and Denies weakness PMFSH Past Medical History Attestation statement: The following information was validated with the patient. Source: old records reviewed and nursing notes reviewed Medical History CKD (chronic kidney disease) stage 3, GFR 30-59 ml/min Tinea unguium Type 2 diabetes mellitus with diabetic polyneuropathy Type 2 diabetes mellitus with obesity CKD (chronic kidney disease) stage 4, GFR 15-29 ml/min Type 2 diabetes mellitus with complication, with long-term current use of insulin Uncontrolled diabetes mellitus with hyperglycemia Hypercalcemia Noncompliance with medication regimen Rash and nonspecific skin eruption Tremor Vitamin D deficiency Mixed dyslipidemia Restrictive airway disease Type 2 diabetes mellitus with other diabetic kidney complication Solitary pulmonary nodule on lung CT Smoker unmotivated to quit Obesity (BMI 30-39.9) Schizoaffective disorder Essential hypertension Surgical History No pertinent past surgical history Family History Family History Father Unknown family medical history Mother Unknown family medical history Brother No problems noted. Sister No problems noted. Social History Social History Housing: Other Housing Other:: fdc Alcohol intake: never Patient Tobacco Use Status: Current everyday Tobacco user Cigarette Packs Per Day: 2 Smoked in Last 30 Days: Yes e-Cigarette/Vaping Use: Never Used Use of substances other than those prescribed or required for medical reasons: Yes Substance Use Type: Marijuana Advance Directives: No Advance Directives Information Provided: Yes Do you have a plan to hurt others: No Plan service: No Current occupational status: disabled Cognitive needs: No Hearing needs: No Vision needs: Yes Physical Exam Vital Signs: Vital Signs: Last Vital Signs Temp 95.7 F L 12/04/23 16:43 Pulse 78 12/04/23 16:43 Resp 16 12/04/23 16:43 BP 140/90 H 12/04/23 16:43 Pulse Ox 99 12/04/23 16:43 O2 Del Method Room Air 12/04/23 16:43 BMI result Body Mass Index 34.2 Const: General: cooperative, healthy appearing, comfortable and no acute distress Orientation/consciousness: patient oriented x3 Limitations: no limitations HEENT: Head: Yes normal to inspection Ears: hearing grossly normal bilaterally General nose exam: Normal external nose present Face and sinus: Yes normal facial exam Mouth: Normal oral and palatal mucosa present Throat: Yes posterior oropharynx normal Eyes: General: appearance normal, both eyes and all related structures Pupils: Equal, round and reactive pupils present Neck: Neck: Yes normal visual inspection Chest: Chest palpation & inspection: normal inspection of the chest Resp: Effort & Inspection: normal respiratory effort Auscultation: clear to auscultation bilaterally Cardio: Rate: regular rate Rhythm: regular rhythm Peripheral pulses: Peripheral pulses 2+ throughout GI: Inspection: Yes normal to inspection Palpation (GI): Soft to palpation and nontender Auscultation: normal bowel sounds Back/Spine/Pelvis: Thoracic/Lumbar Spine: thoracic and lumbar spine normal to inspection Skin: General skin exam: no rashes or lesions noted Neuro: General: patient oriented x3, no focal motor deficits and normal sensation to monofilament Cranial nerves: Yes Equal, round and reactive pupils present Cognition (Neuro): normal cognition Speech: No Abnormal speech present Motor exam (neuro): 5/5 motor strength present throughout Sensory Exam: Normal double simultaneous stimulation for sensation Deep tendon reflexes (DTR's): Right patellar reflex intensity grade: 2+ and Left patellar reflex intensity grade: 2+ Extrem: Other: Pain on palpation to right hip flexor which is worsened with right straight leg raise. FROM of right hip/right knee. CMS intact distally. No pain on palpation over back General: Yes normal to inspection Course Course Course Narrative: CT shows arthritis, tendonitis. Despite analgesia patient having diff with ambulation. May need STR. Will consult PT/CM Reevaluation(s) Reevaluation #1: 1300-Placed in physician obs pending above Medications Administered Generic Name Dose Route Start Last Admin Trade Name Freq PRN Reason Stop Dose Admin Docusate Sodium 200 mg 12/04/23 15:00 12/04/23 15:41 Docusate Sodium 100 Mg Capsule PO Not Given DAILY ELIZA Empagliflozin 25 mg 12/04/23 15:00 12/04/23 15:41 Empagliflozin 25 Mg Tablet PO Not Given DAILY ELIZA Fenofibrate 160 mg 12/04/23 15:00 12/04/23 15:42 Fenofibrate 160 Mg Tablet PO Not Given DAILY ELIZA Haloperidol 5 mg 12/04/23 15:00 12/04/23 15:42 Haloperidol 5 Mg Tablet PO Not Given BID ELIZA Losartan Potassium 25 mg 12/04/23 15:00 12/04/23 15:42 Losartan Potassium 25 Mg Tablet PO Not Given DAILY [facility] Protocol Omeprazole 20 mg 12/04/23 16:30 12/04/23 16:34 Omeprazole 20 Mg Capsule. PO 20 mg BID@[id number],[id number] ELIZA Administration Discontinued Medications Generic Name Dose Route Start Last Admin Trade Name Annette PRN Reason Stop Dose Admin Oxycodone HCl 10 mg 12/04/23 10:22 12/04/23 10:47 Oxycodone Hcl Immed Release 5 Mg Tablet PO 12/04/23 10:23 10 mg ONCE ONE Administration Medical Decision Making Medical Decision Making MDM Narrative: 43 yo male with past medical history of IDDM, high cholesterol, chronic kidney disease, schizoaffective disorder who presents the ER with complaints of right hip pain for the last few weeks. Patient reports he was seen here on November 30 and was discharged home after some imaging with recommendation to take Tylenol for pain. Reports he has been taking Tylenol every 3-4 hours with continued pain. Denies any injury or trauma. He reports pain begins in his right hip and at times shoots down the right leg. He denies any associated numbness, tingling, weakness, swelling. He does live alone and is having difficulty with ambulation Pain on palpation to right hip flexor which is worsened with right straight leg raise. FROM of right hip/right knee. CMS intact distally. No pain on palpation over back No neurological deficits or red flag symptoms. Reviewed previous ER records (negative CT A/P, groin US, x-rays) Will obtain labs, CT hip, provide pain control May need CM Differential Diagnosis Differential Diagnoses: The differential diagnosis associated with the presentation includes Hip flexor strain, Sprain, radiculopathy. Low suspicion for cellulitis, vascular injury, arterial occlusion, fracture, dislocation, septic joint, DVT, malignancy, caude equina/cord compression, epidural abscess Admission/Observation Consideration of admission/observation: Escalation of care including admission/observation considered CT shows arthritis, tendonitis. Despite analgesia patient having diff with ambulation. May need STR. Will consult PT/CM Consult Healthcare Provider Management of the patient was discussed with: Dice Table Person Lab Data [facility] Lab Attestation statement: I reviewed the patient's lab results. 12/04/23 10:40 12/04/23 10:40 Labs: Lab Results 12/04/23 12/04/23 12/04/23 Range/Units 10:40 13:43 17:48 WBC 8.6 (4.8-10.8) X10*3/uL RBC 5.33 (4.60-5.80) X10*6/uL Hgb 15.3 (14.0-18.0) g/dl Hct 44.3 (42.0-52.0) % MCV 83.1 (80.0-98.0) fL MCH 28.7 (27.0-33.0) pg MCHC 34.5 (31.0-36.0) g/dl RDW 14.4 (11.0-16.0) % Plt Count 263 (160-400) X10*3/uL MPV 9.7 (9.4-12.4) fL Immature Gran % (Auto) 0.3 (0.0-0.4) % Neut % (Auto) 66.5 (45-73) % Lymph % (Auto) 25.8 (20-40) % [place] % (Auto) 7.2 (2-11) % Eos % (Auto) 0.1 (0-4) % Baso % (Auto) 0.1 (0-2) % Lymph # (Auto) 2.2 (1.2-4.9) X10*3/uL [place] # (Auto) 0.6 (0.1-1.2) X10*3/uL Eos # (Auto) 0.0 (0.0-0.4) X10*3/uL Baso # (Auto) 0.0 (0.0-0.2) X10*3/uL Abs Immat Gran (auto) 0.03 (0.00-0.03) X10*3/uL Absolute Neuts (auto) 5.7 (2.0-8.3) x10*3/uL Absolute Nucleated RBC 0.000 (0.0-0.012) X10*3/uL Nucleated RBC % (auto) 0.0 (0.0-0.2) /100WBC Sodium 141 (135-145) mmol/L Potassium 5.0 (3.3-5.1) mmol/L Chloride 111 H (96-108) mmol/L Carbon Dioxide 23 (22-29) mmol/L Anion Gap 12 (12-20) BUN 30 H (9-16) mg/dL Creatinine 2.30 H (0.5-1.4) mg/dL Estim Creat Clear Calc 47.4 Estimated GFR 31 POC Glucose 116 H 182 H (60-115) mg/dL Random Glucose 178 H (60-115) mg/dL Calcium 10.0 (8.4-10.2) mg/dL Total Bilirubin 0.2 (0.0-1.0) mg/dL Direct Bilirubin < 0.2 (0.0-0.5) mg/dL AST 11 (5-37) U/L ALT 14 (0-40) U/L Alkaline Phosphatase 68 (39-117) U/L Total Protein 7.4 (6.5-8.0) g/dL Albumin 4.0 (3.5-5.0) g/dL Independent Interpretation I performed an independent interpretation of an: CT Scan Interpretation: I independently reviewed the CT scan agree with the radiology report Radiology Impression Discussion of test interpretation with radiology: I have reviewed the radiologist's reading. Radiologist Impression: [place] [id number] CT Scan Report Signed Patient: Matty Mcgee MR#: [id number] : 1980 Acct:[id number] Age/Sex: 43 / M ADM Date: 12/04/23 Loc: HO.ED Attending Dr: Ordering Physician: Rhoda Hdz NP Date of Service: 12/04/23 Procedure(s): CT hip RT wo IV con Accession Number(s): [id number] cc: Rowena Cedeno MD; Rhoda Hdz NP~ EXAMINATION: CT HIP WITHOUT CONTRAST, RIGHT CLINICAL INFORMATION: Right hip COMPARISON: Radiographs 12/01/2023 TECHNIQUE: Multidetector volumetric imaging was obtained through the right hip without contrast material. Multiplanar reformatted images were submitted in coronal and sagittal planes. This CT examination was performed using dose optimization techniques as appropriate, variously including the following: *Automated exposure control *Adjustment of mA and/or kV according to patient size (this includes techniques or standardized protocols for targeted exams where dose is matched to indication/reason for exam; i.e. extremities or head) *Use of iterative reconstruction technique DLP: 276 mGy-cm FINDINGS: No acute fracture or malalignment. Mild right hip osteoarthritis with small marginal osteophytes along the superior acetabular rim. Small focus of calcification at the gluteus minimus insertion onto the greater trochanter may represent calcific tendinitis. No adenopathy. Mild L5-S1 degenerative disc disease and facet arthrosis. CT/CT hip RT wo IV con IMPRESSION: No acute fracture or malalignment. Mild right hip osteoarthritis. Gluteus minimus insertional calcific tendinitis. Independent Historian Clinical information obtained from an independent historian. History obtained from or confirmed by: EMS External Record Review External record reviewed: Outside ED record Discharge Plan Discharge Clinical Impression: Hip pain Patient Disposition: Still a Patient Instructions: Hip Pain (ED) Prescriptions: No Action fenofibrate 160 mg tablet 160 mg PO DAILY Qty: 90 4RF Anoro Ellipta 62.5-25 mcg/actuation blister with device 1 ea PO DAILY Qty: 60 2RF ferrous fumarate 324 mg (106 mg iron) tablet 324 mg PO DAILY Qty: 90 0RF Rx Instructions: take with Vitamin C tablets or orange juice bisacodyl [Dulcolax (bisacodyl)] 5 mg tablet,delayed release (DR/EC) 10 mg PO BEDTIME PRN (Reason: constipation) 2 Days Qty: 4 0RF omeprazole 20 mg capsule,delayed release(DR/EC) 20 mg PO BID Qty: 180 0RF losartan 25 mg tablet 25 mg PO DAILY Qty: 90 0RF rosuvastatin 5 mg tablet 5 mg PO DAILY Qty: 30 0RF (DME) pen needle, diabetic [Comfort EZ Pen [place]] 33 gauge x 3/16 needle See Rx Instructions .Route Qty: 100 4RF Rx Instructions: inject insulin twice daily docusate sodium 100 mg Capsule 100 mg PO BEDTIME docusate sodium 100 mg capsule 200 mg PO DAILY clozapine 200 mg tablet 200 mg PO DAILY haloperidol 5 mg tablet 5 mg PO BID acetaminophen [Tylenol Extra Strength] 500 mg tablet 500 mg PO Q12H PRN (Reason: Pain) Ozempic 1 mg/dose (4 mg/3 mL) pen injector 1 mg subcut TH@0900 albuterol sulfate 90 mcg/actuation HFA aerosol inhaler 2 puff inhalation Q6H PRN (Reason: for wheezing) (DME) FreeStyle Maria D 2 Sensor Kit See Rx Instructions .Route Qty: 1 5RF Rx Instructions: As directed (DME) FreeStyle Maria D 2 [place] Misc See Rx Instructions .Route Qty: 1 5RF Rx Instructions: As directed insulin degludec [Tresiba U-100 Insulin] 100 unit/mL solution 45 unit subcut DAILY empagliflozin 25 mg tablet 25 mg PO DAILY Qty: 30 6RF Rx Instructions: Take 1 tablet 1 hour before breakfast fluticasone propionate [Flonase Allergy Relief] 50 mcg/actuation spray,suspension 1 spray intranasal BEDTIME 30 Days Qty: 16 6RF Rx Instructions: administer into each nostril Print Language: Serbian
[2023-12-04 10:44] LABS: MANUAL DIFF FLAG NO
[2023-12-04 10:46] LABS: Basophils Percent Auto 0.1 % (0-2); Eosinophils Percent Auto 0.1 % (0-4); Hematocrit 44.3 % (42.0-52.0); Hemoglobin 15.3 g/dl (14.0-18.0); Imm Gran Abs Auto 0.03 X10*3/uL (0.00-0.03); Imm Gran Pct Auto 0.3 % (0.0-0.4); Lymphocytes Absolute Auto 2.2 X10*3/uL (1.2-4.9); Lymphocytes Percent Auto 25.8 % (20-40); Mean Corpuscular HGB Conc 34.5 g/dl (31.0-36.0); Mean Corpuscular Hemoglobin 28.7 pg (27.0-33.0); Mean Corpuscular Volume 83.1 fL (80.0-98.0); Mean Platelet Volume 9.7 fL (9.4-12.4); Monocytes Absolute Auto 0.6 X10*3/uL (0.1-1.2); Monocytes Percent Auto 7.2 % (2-11); Neutrophils Absolute Auto 5.7 x10*3/uL (2.0-8.3); Neutrophils Percent Auto 66.5 % (45-73); Platelet Count 263 X10*3/uL (160-400); Red Blood Count 5.33 X10*6/uL (4.60-5.80); Red Cell Distribution Width 14.4 % (11.0-16.0); White Blood Count 8.6 X10*3/uL (4.8-10.8)
[2023-12-04] MEDS: oxyCODONE HCl Immed Release 5 MG TABLET 10 MG PO (10:47)
--- NOTE | 2023-12-04 10:50 | PC.NURSE ---
pt a&ox3, vss, c/o 10/08 rt hip pain with movement, pt states he lives home alone and is unable to ambulate very much because of the pain. pt medicated for pain per order
[2023-12-04 11:23] LABS: Alanine Aminotransferase 14 U/L (0-40); Alkaline Phosphatase 68 U/L (39-117); Anion Gap 12 (12-20); Aspartate Amino Transferase 11 U/L (5-37); Bilirubin Direct < 0.2 mg/dL (0.0-0.5); Bilirubin Total 0.2 mg/dL (0.0-1.0); Blood Urea Nitrogen 30 mg/dL (9-16); Carbon Dioxide 23 mmol/L (22-29); Chloride 111 mmol/L (96-108); Creatinine Clr Calc Pharmacy 47.4; Estimated Glomerular Filt Rate 31; Glucose Random 178 mg/dL (60-115); Sodium 141 mmol/L (135-145); Total Protein 7.4 g/dL (6.5-8.0)
--- NOTE | 2023-12-04 11:55 | MHC.EDTECH ---
patient took a few steps away from the bed with walker and stated he could no longer ambulate do to not being able to put pressure on his right foot.
--- NOTE | 2023-12-04 11:56 | PC.NURSE ---
pt attempted to walk with walker, was only to take a few steps and c/o 9/10 pain and wanting to sit. will notify provider
[2023-12-04 12:16] VITALS: BP 144/83; PULSE 95; O2SAT 97
[2023-12-04 13:51] LABS: Glucose, Whole Blood 116 mg/dL (60-115)
--- NOTE | 2023-12-04 13:54 | PC.NURSE ---
pharmacy called x2 for med req to be completed, the patient list was faxed to pharmacy, they have stated that they need to come speak with the patient regarding medications on his list as there is inconsistencies.
--- NOTE | 2023-12-04 13:59 | PC.NURSE ---
pt a&ox3, continues to state he has 8/10 pain with movement in his hip. PT eval patient and suggested short term rehab, CM spoke with patient and is working on a place. Pharmacy to come speak with patient as well. pt currently sitting at bedside eating a sandwich. call marie within reach, will continue with plan of care
--- NOTE | 2023-12-04 14:03 | MHC.CM.PN ---
CM ED CONSULT RECEIVED. CM MET WITH PT AT BEDSIDE. 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 THROUGH [employer]. PT IS INDEPENDENT AT BASELINE. NO MH SERVICES OR COUNSELOR IN COMMUNITY. PER PT, PCP MANAGES MEDICATIONS. [place] DR. AGUILA [place] [facility] [place]. DP: PT HAS BEEN REC FOR STR BY P.T. REFERRALS SENT AND [facility] HAS OFFERED A BED AND PT ACCEPTS. CENTER WILL NEED [facility] APPROVAL BEFORE DC SO PT IS AWARE THIS WILL HAPPEN 12/05. CM WILL CONTINUE TO FOLLOW FOR ANY CHANGE TO DC PLAN.
--- NOTE | 2023-12-04 14:32 | PHA.MEDREC ---
Addendum entered by Paulo Go 12/04/23 15:14: reviewed Original Note: Pharmacy Consult ? Medication Reconciliation Pharmacy has completed the medication reconciliation.
--- NOTE | 2023-12-04 15:42 | PC.NURSE ---
pt is unable to tell this nurse the names of the medications he took this morning, upon questioning further pt states that he has a nurse that comes in and gives him his medications so hes unsure what he took. this nurse spoke with the emc provider and it was decided to hold the am medications as he stated he got medication this morning. will continue medications as due for the rest of the day
[2023-12-04] MEDS: Omeprazole 20 MG CAPSULE.DR PO (16:34)
--- NOTE | 2023-12-04 16:35 | PC.NURSE ---
pt medicated per order
[2023-12-04 16:43] VITALS: BP 140/90; PULSE 78; RESP 16; TEMP 35.4; O2SAT 99
[2023-12-04 17:52] LABS: Glucose, Whole Blood 182 mg/dL (60-115)
[2023-12-04] MEDS: HaloperidoL 5 MG TABLET PO (20:56)
[2023-12-04] MEDS: Docusate Sodium 100 MG CAPSULE PO (20:56)
[2023-12-04] MEDS: Fluticasone Propionate Nasal 16 GM SPRAY 1 SPRAY NOSTRIL-B (20:57)
[2023-12-04] MEDS: oxyCODONE HCl Immed Release 5 MG TABLET PO (21:00)
[2023-12-04 21:06] VITALS: BP 149/92; PULSE 78; RESP 16; TEMP 36.5; O2SAT 98
[2023-12-05] MEDS: Omeprazole 20 MG CAPSULE.DR PO ×2 (05:57→17:40)
--- NOTE | 2023-12-05 06:02 | PC.NURSE ---
Pt ambulatory to restroom using walker and with standby assist.
[2023-12-05 07:26] LABS: Glucose, Whole Blood 145 mg/dL (60-115)
[2023-12-05] MEDS: cloZAPine 100 MG TABLET 200 MG PO (09:02)
[2023-12-05] MEDS: Docusate Sodium 100 MG CAPSULE 200 MG PO (09:02)
[2023-12-05] MEDS: Atorvastatin Calcium 20 MG TABLET PO (09:03)
[2023-12-05 09:05] VITALS: BP 141/99
[2023-12-05] MEDS: Losartan Potassium 25 MG TABLET PO (09:05)
[2023-12-05] MEDS: HaloperidoL 5 MG TABLET PO ×2 (09:05→20:28)
[2023-12-05] MEDS: Fenofibrate 160 MG TABLET PO (09:05)
[2023-12-05] MEDS: Insulin Glargine,Hum.rec.anlog 100 UNIT/ML 10 ML VIAL 32 UNIT SUBCUT (09:06)
[2023-12-05] MEDS: Empagliflozin 25 MG TABLET PO (09:06)
[2023-12-05 09:28] VITALS: BP 141/99; PULSE 80; RESP 18; TEMP 36.6; O2SAT 98
[2023-12-05 11:51] LABS: Glucose, Whole Blood 190 mg/dL (60-115)
[2023-12-05 15:44] VITALS: BP 120/78; PULSE 99; RESP 16; TEMP 36.9; O2SAT 98
--- NOTE | 2023-12-05 16:37 | PC.NURSE ---
Case workers Karen updated on plan for STR
[2023-12-05 17:05] LABS: Glucose, Whole Blood 223 mg/dL (60-115)
[2023-12-05 17:42] VITALS: BP 128/89; PULSE 99; RESP 18; TEMP 36.6; O2SAT 97
[2023-12-05 20:20] VITALS: BP 127/87; PULSE 92; RESP 12; TEMP 36.6; O2SAT 96
[2023-12-05] MEDS: Fluticasone Propionate Nasal 16 GM SPRAY 1 SPRAY NOSTRIL-B (20:28)
[2023-12-05] MEDS: Docusate Sodium 100 MG CAPSULE PO (20:28)
--- NOTE | 2023-12-05 23:41 | PC.NURSE ---
Handoff report to Deedee RN for continued care.
[2023-12-06 04:11] LABS: Glucose, Whole Blood 159 mg/dL (60-115)
--- NOTE | 2023-12-06 04:19 | PC.NURSE ---
Patient is alert and oriented x3, VSS. POC 159. Patient denies any pain at present. Patient uses a urinal independently, ambulates to the restroom with a walker and supervision for BM. Patient offers no complaints at present, resting comfortably on the hospital marie, call marie in reach, plan of care ongoing.
[2023-12-06] MEDS: oxyCODONE HCl Immed Release 5 MG TABLET PO (05:15)
--- NOTE | 2023-12-06 05:20 | PC.NURSE ---
Patient medicated with PRN Oxycodone 5 mg PO for 8/10 pain in right hip.
[2023-12-06] MEDS: Omeprazole 20 MG CAPSULE.DR PO ×2 (06:45→17:20)
[2023-12-06 08:06] VITALS: BP 124/75; PULSE 77; RESP 18; TEMP 36.9; O2SAT 95
--- NOTE | 2023-12-06 08:44 | MHC.CM.ED ---
Patient remains in ER overflow. Physical therapy is recommending STR. [facility] is able to offer a bed. Patient accepted this bed. MDS completed and sent to [facility]. Waiting for [facility] leveling approval from [facility] before patient can transfer to facility. Continue to monitor for d/c needs.
[2023-12-06] MEDS: Losartan Potassium 25 MG TABLET PO (09:20)
[2023-12-06] MEDS: Ferrous Sulfate 324 MG TABLET.DR PO (09:20)
[2023-12-06] MEDS: Insulin Glargine,Hum.rec.anlog 100 UNIT/ML 10 ML VIAL 32 UNIT SUBCUT (09:20)
[2023-12-06] MEDS: Atorvastatin Calcium 20 MG TABLET PO (09:20)
--- NOTE | 2023-12-06 09:30 | PC.NURSE ---
Some 09:00 meds. missing from [facility] - requested per pharmacy. Awaiting meds. at this time.
[2023-12-06] MEDS: cloZAPine 100 MG TABLET 200 MG PO (10:56)
[2023-12-06] MEDS: Docusate Sodium 100 MG CAPSULE 200 MG PO (10:58)
[2023-12-06] MEDS: Empagliflozin 25 MG TABLET PO (10:58)
[2023-12-06] MEDS: Fenofibrate 160 MG TABLET PO (10:58)
[2023-12-06] MEDS: HaloperidoL 5 MG TABLET PO (10:58)
[2023-12-06 11:14] LABS: Glucose, Whole Blood 202 mg/dL (60-115)
[2023-12-06 14:00] VITALS: BP 134/85; PULSE 107; RESP 17; TEMP 36.9; O2SAT 94
--- NOTE | 2023-12-06 14:37 | MHC.CM.ED ---
Received notification from Donna at [facility] that [facility] leveling has been sent to [facility]. Moraima from [facility] agreeable to patient being transferred to the facility. Eric JOHN booked for 6pm. Med nec with chart. Patient, Lina FLORES and Mable DOMINGO aware. Continue to monitor for d/c needs.
--- NOTE | 2023-12-06 16:43 | MHC.EDTECH ---
SANDRA Mills said to disregard covid swab order .
[2023-12-06 16:45] LABS: Glucose, Whole Blood 230 mg/dL (60-115)
--- NOTE | 2023-12-06 16:53 | PC.NURSE ---
No COVID swab needed per Lydia, Case Management. Facility not requesting it.
[2023-12-06 17:58] VITALS: BP 139/88; PULSE 100; RESP 16; TEMP 36.7; O2SAT 98
--- NOTE | 2023-12-06 18:00 | MHC.EDTECH ---
This pct assumed care of Patient ,vitals taken ,Patient was set up with dinner ,ate 100 % drank 480 ml fluids ,1000 ml urine empty from urinal .
--- NOTE | 2023-12-06 18:47 | PC.NURSE ---
[id number] called to SANDRA Parker at [facility]
[2023-12-06 18:48] VITALS: BP 139/88; PULSE 100; RESP 16; TEMP 36.7; O2SAT 98
== END 2023-12-06 18:50 ==
PROVIDERS: Nurse Practitioner Family; Emergency Provider Internal Medicine; PCP Internal Medicine
DX: M25.551 Pain in right hip (principal); M76.9 Unspecified enthesopathy, lower limb, excluding foot; M16.11 Unilateral primary osteoarthritis, right hip; E11.22 Type 2 diabetes mellitus with diabetic chronic kidney disease; I12.9 Hypertensive chronic kidney disease with stage 1 through stage 4 chronic kidney disease, or unspecified chronic kidney disease; N18.4 Chronic kidney disease, stage 4 (severe); E78.2 Mixed hyperlipidemia; F25.9 Schizoaffective disorder, unspecified; F17.210 Nicotine dependence, cigarettes, uncomplicated; Z79.4 Long term (current) use of insulin; Z79.02 Long term (current) use of antithrombotics/antiplatelets; Z79.899 Other long term (current) drug therapy
CPT/HCPCS: 36415; 73700; 80048; 80076; 82947; 85025; 97162; 99285

== ENCOUNTER 2023-12-25 09:19 | Outpatient (REF) | payer MEDICARE, MEDICAID, SELFPAY ==
[2023-12-25 09:48] LABS: MANUAL DIFF FLAG NO
[2023-12-25 09:59] LABS: Basophils Percent Auto 0.1 % (0-2); Eosinophils Percent Auto 0.5 % (0-4); Hematocrit 41.7 % (42.0-52.0); Hemoglobin 14.5 g/dl (14.0-18.0); Imm Gran Abs Auto 0.05 X10*3/uL (0.00-0.03); Imm Gran Pct Auto 0.6 % (0.0-0.4); Lymphocytes Percent Auto 24.7 % (20-40); Mean Corpuscular HGB Conc 34.8 g/dl (31.0-36.0); Mean Corpuscular Hemoglobin 28.8 pg (27.0-33.0); Mean Corpuscular Volume 82.9 fL (80.0-98.0); Mean Platelet Volume 10.2 fL (9.4-12.4); Monocytes Absolute Auto 0.5 X10*3/uL (0.1-1.2); Monocytes Percent Auto 5.8 % (2-11); Neutrophils Absolute Auto 5.7 x10*3/uL (2.0-8.3); Neutrophils Percent Auto 68.3 % (45-73); Platelet Count 205 X10*3/uL (160-400); Red Blood Count 5.03 X10*6/uL (4.60-5.80); Red Cell Distribution Width 14.6 % (11.0-16.0); White Blood Count 8.3 X10*3/uL (4.8-10.8)
[2023-12-25 10:32] LABS: Appearance Urine Clear; Color Urine Yellow; Glucose Urine UA >=1000 mg/dL (Negative); Leukocyte Esterase Urine Negative (Negative); Nitrite Urine Negative (Negative); UMIC TRIGGER UA YES; Urine Blood Negative (Negative); Urine Ketones Negative (Negative); Urine Protein Negative (Neg-Trace)
[2023-12-25 10:37] LABS: Bacteria Urine None Seen (None Seen); Hyaline Casts Urine 0-2 /LPF (0-2); RBC Urine 0-2 /HPF (0-2); Squamous Epithelial Cell Urine 0-2 /HPF (0-2); WBC Urine 0-5 /HPF (0-5)
[2023-12-25 10:38] LABS: Alanine Aminotransferase 24 U/L (0-40); Albumin Level 3.9 g/dL (3.5-5.0); Alkaline Phosphatase 87 U/L (39-117); Anion Gap 13 (12-20); Aspartate Amino Transferase 17 U/L (5-37); Bilirubin Total 0.2 mg/dL (0.0-1.0); Blood Urea Nitrogen 29 mg/dL (9-16); Carbon Dioxide 21 mmol/L (22-29); Chloride 106 mmol/L (96-108); Estimated Glomerular Filt Rate 30; Glucose Random 362 mg/dL (60-115); Potassium 4.9 mmol/L (3.3-5.1); Sodium 135 mmol/L (135-145); Total Protein 7.1 g/dL (6.5-8.0)
[2023-12-25 11:05] LABS: Total Protein Urine Random < 7 mg/dL (<12)
== END 2023-12-25 09:20 | disposition home or self-care (01) ==
LOC: HO.LAB 09:19
PROVIDERS: PCP Internal Medicine; Visit Provider Internal Medicine Hypertension Specialist
DX: N18.30 Chronic kidney disease, stage 3 unspecified (principal)
CPT/HCPCS: 36415; 80053; 81001; 82570; 83970; 84156; 85025

== ENCOUNTER 2023-12-28 13:15 | Outpatient (AMB) | payer MEDICARE, MEDICAID, SELFPAY ==
[2023-12-28 13:33] VITALS: BP 112/82; PULSE 90; O2SAT 97; BMI 33.0
--- NOTE | 2023-12-28 13:33 | HO.NEPHOV ---
Vital Signs 12/28/23 13:33 Height 5 ft 8 in Weight 217 lb BMI 33.0 BP 112/82 Blood Pressure Location Lt brachial Position Sitting Pulse 90 Pulse Source Pulse Oximeter Pulse Oximetry (%) 97 Oxygen Delivery Method Room Air Intake Visit Reasons: Oct follow up/ Conf Gravity Flow Irrigator Required: No Accompanied by: Pulverizer Allergies No Known Allergies Allergy (Verified 12/28/23 13:34) Medication List - Last Reconciled 12/28/23 by Bruce Ye MD acetaminophen (Tylenol Extra Strength) 500 mg PO Q12H PRN albuterol sulfate 90 mcg/actuation 2 puffs inhalation Q6H PRN bisacodyl (Dulcolax (bisacodyl)) 10 mg (2 x 5 mg) PO BEDTIME PRN 2 days clozapine 200 mg PO DAILY docusate sodium 200 mg PO DAILY docusate sodium 100 mg PO BEDTIME empagliflozin 25 mg PO DAILY fenofibrate 160 mg PO DAILY ferrous fumarate 324 mg PO DAILY flash glucose scanning reader (careersmoreStyle Maria D 2 Mclean) As directed flash glucose sensor (FreeStyle Maria D 2 Sensor kit) As directed fluticasone propionate 50 mcg/actuation (Flonase Allergy Relief) 1 spray intranasal BEDTIME 30 days haloperidol 5 mg PO BID hydroxyzine HCl 25 mg PO DAILY insulin degludec (Tresiba U-100 Insulin) 45 units subcut DAILY lorazepam 1 mg PO DAILY PRN omeprazole 20 mg PO BID pen needle, diabetic (Comfort EZ [employer]) inject insulin twice daily rosuvastatin 5 mg PO DAILY semaglutide (Ozempic) 1 mg subcut TH@0900 umeclidinium-vilanterol 62.5-25 mcg/actuation (Anoro Ellipta) 1 ea PO DAILY HPI Comments Details: Matty is a middle-aged man with a history of schizoaffective disorder who was on lithium for many years. Amonate was stopped 06/26/2022 He has a longstanding history of diabetes mellitus. History of chronic kidney disease. He was previously seen about a year ago and lost to follow-up. He has been referred again for management of CKD. Recent serum creatinine is 2.0 mg/dL with the EGFR of about 33 mL/minute. The blood pressure has been well controlled. He is currently on angiotensin receptor lesia along with Jardiance. He was on metformin which has been recently discontinued. He Smokes 2PPD 12/28/23 Overall doing OK Off Metformin now Currently on SGLT-2 inhibitors [facility] Medical History CKD (chronic kidney disease) stage 3, GFR 30-59 ml/min Tinea unguium Type 2 diabetes mellitus with diabetic polyneuropathy Type 2 diabetes mellitus with obesity CKD (chronic kidney disease) stage 4, GFR 15-29 ml/min Type 2 diabetes mellitus with complication, with long-term current use of insulin Uncontrolled diabetes mellitus with hyperglycemia Hypercalcemia Noncompliance with medication regimen Rash and nonspecific skin eruption Tremor Vitamin D deficiency Mixed dyslipidemia Restrictive airway disease Type 2 diabetes mellitus with other diabetic kidney complication Solitary pulmonary nodule on lung CT Smoker unmotivated to quit Obesity (BMI 30-39.9) Schizoaffective disorder Essential hypertension Surgical History No pertinent past surgical history Family History Father Unknown family medical history Mother Unknown family medical history Brother No problems noted. Sister No problems noted. Social History Housing: Other Housing Other:: long term Alcohol intake: never Patient Tobacco Use Status: Current everyday Tobacco user Cigarette Packs Per Day: 2 e-Cigarette/Vaping Use: Never Used Substance Use Type: Marijuana Advance Directives Date on File: 12/06/23 service: No Current occupational status: disabled Cognitive needs: No Hearing needs: No Vision needs: Yes Physical Exam Vital Signs: BMI result Body Mass Index 33.0 Results Reviewed Nephrology Results: Hgb 14.5 g/dl (14.0-18.0) 12/25/23 WBC 8.3 X10*3/uL (4.8-10.8) 12/25/23 Plt Count 205 X10*3/uL (160-400) 12/25/23 Sodium 135 mmol/L (135-145) 12/25/23 Potassium 4.9 mmol/L (3.3-5.1) 12/25/23 Chloride 106 mmol/L (96-108) 12/25/23 Carbon Dioxide 21 mmol/L (22-29) L 12/25/23 BUN 29 mg/dL (9-16) H 12/25/23 Creatinine 2.39 mg/dL (0.5-1.4) H 12/25/23 Calcium 10.0 mg/dL (8.4-10.2) 12/25/23 PTH Intact 67.0 pg/mL (8.7-77.1) 12/25/23 Urine Protein Negative mg/dL (Neg-Trace) 12/25/23 Urine Creatinine 12.90 mg/dL 12/25/23 Assessment & Plan Assessment & Plan (1) CKD (chronic kidney disease) stage 3, GFR 30-59 ml/min: Code(s): N18.30 - Chronic kidney disease, stage 3 unspecified Category: Medical Plan Matty has stage IIIB chronic kidney disease. CKD is most likely due to underlying diabetic kidney disease. He has been on lithium for a long time therefore lithium nephropathy can not be ruled out. At present he has no evidence of diabetes insipidus. He is no longer on lithium. Goal is to slow the portion of renal disease. Continue to maintain obtain blood pressure less than 130/80. Discussed importance of tight control blood sugar and A1c should be maintained less than 7%. Discussed importance of smoking cessation but he has no intention to quit. He will definitely benefit from weight loss. Given the degree of renal insufficiency I agree with avoiding metformin due to risk of lactic acidosis. Agree with SGLT-2 inhibitors for renal protection We will continue to screen for comorbid conditions including anemia and secondary hyperparathyroidism prior to his next visit. Orders: Orders Electrolytes 4 Months N18.30 - Chronic kidney disease, stage 3 unspecified Calcium 4 Months N18.30 - Chronic kidney disease, stage 3 unspecified Creatinine Urine 4 Months N18.30 - Chronic kidney disease, stage 3 unspecified Blood Urea Nitrogen 4 Months N18.30 - Chronic kidney disease, stage 3 unspecified Creatinine 4 Months N18.30 - Chronic kidney disease, stage 3 unspecified Total Protein Urine Random 4 Months N18.30 - Chronic kidney disease, stage 3 unspecified Parathyroid Hormone Related Pr 4 Months N18.30 - Chronic kidney disease, stage 3 unspecified Complete Blood Count no Diff 4 Months N18.30 - Chronic kidney disease, stage 3 unspecified Coding Level of Care Code Est Pt Level 4 (68921) Diagnoses CKD (chronic kidney disease) stage 3, GFR 30-59 ml/min N18.30
== END 2023-12-28 13:49 | disposition home or self-care (01) ==
LOC: HO.HKA 13:16
PROVIDERS: PCP Internal Medicine; Visit Provider Internal Medicine Hypertension Specialist
DX: E11.22 Type 2 diabetes mellitus with diabetic chronic kidney disease (principal); N18.32 Chronic kidney disease, stage 3b
CPT/HCPCS: 99214

== ENCOUNTER → 2023-12-28 13:15 | Outpatient (BNVA) | payer MEDICARE, MEDICAID, SELFPAY | PROVIDERS: PCP Internal Medicine; Visit Provider Internal Medicine Hypertension Specialist | DX: E11.22 Type 2 diabetes mellitus with diabetic chronic kidney disease (principal); E11.65 Type 2 diabetes mellitus with hyperglycemia; E11.42 Type 2 diabetes mellitus with diabetic polyneuropathy; N18.32 Chronic kidney disease, stage 3b | CPT/HCPCS: 99212 ==

== ENCOUNTER 2023-12-29 14:38 | Outpatient (REF) | payer MEDICARE, MEDICAID, SELFPAY ==
[2023-12-29 14:52] LABS: MANUAL DIFF FLAG NO
[2023-12-29 15:05] LABS: Hematocrit 41.4 % (42.0-52.0); Hemoglobin 14.3 g/dl (14.0-18.0); Imm Gran Abs Auto 0.03 X10*3/uL (0.00-0.03); Imm Gran Pct Auto 0.4 % (0.0-0.4); Lymphocytes Absolute Auto 2.3 X10*3/uL (1.2-4.9); Lymphocytes Percent Auto 29.7 % (20-40); Mean Corpuscular HGB Conc 34.5 g/dl (31.0-36.0); Mean Corpuscular Hemoglobin 29.1 pg (27.0-33.0); Mean Corpuscular Volume 84.1 fL (80.0-98.0); Mean Platelet Volume 9.9 fL (9.4-12.4); Monocytes Absolute Auto 0.5 X10*3/uL (0.1-1.2); Monocytes Percent Auto 6.3 % (2-11); Neutrophils Absolute Auto 4.9 x10*3/uL (2.0-8.3); Neutrophils Percent Auto 63.6 % (45-73); Platelet Count 211 X10*3/uL (160-400); Red Blood Count 4.92 X10*6/uL (4.60-5.80); White Blood Count 7.7 X10*3/uL (4.8-10.8)
[2023-12-29 15:14] LABS: Estimated Average Glucose 189 mg/dL; Hemoglobin A1C 240.9616 umol/L; Hemoglobin A1c % 8.2 % (<6.0); Total Hemoglobin (HGBA1C) 3630.1016 umol/L
[2023-12-29 17:04] LABS: Alanine Aminotransferase 33 U/L (0-40); Anion Gap 14 (12-20); Aspartate Amino Transferase 17 U/L (5-37); Blood Urea Nitrogen 27 mg/dL (9-16); Calcium 9.7 mg/dL (8.4-10.2); Carbon Dioxide 22 mmol/L (22-29); Chloride 106 mmol/L (96-108); Cholesterol 140 mg/dL (<200); Estimated Glomerular Filt Rate 30; Glucose Fasting 368 mg/dL (60-99); HDL Cholesterol 25 mg/dL (>40); Potassium 5.1 mmol/L (3.3-5.1); Sodium 137 mmol/L (135-145); Triglycerides 458 mg/dL (<150)
== END 2023-12-29 14:39 | disposition home or self-care (01) ==
LOC: HO.LABR 14:38
PROVIDERS: PCP Internal Medicine
DX: Z79.899 Other long term (current) drug therapy (principal); E11.8 Type 2 diabetes mellitus with unspecified complications; Z79.4 Long term (current) use of insulin
CPT/HCPCS: 36415; 80048; 80061; 83036; 84450; 84460; 85025

== ENCOUNTER 2024-02-03 13:43 | Outpatient (REF) | payer MEDICARE, MEDICAID, SELFPAY ==
[2024-02-03 13:54] LABS: MANUAL DIFF FLAG NO
[2024-02-03 14:42] LABS: Hematocrit 44.9 % (42.0-52.0); Hemoglobin 15.4 g/dl (14.0-18.0); Imm Gran Abs Auto 0.05 X10*3/uL (0.00-0.03); Imm Gran Pct Auto 0.6 % (0.0-0.4); Lymphocytes Absolute Auto 2.5 X10*3/uL (1.2-4.9); Lymphocytes Percent Auto 29.3 % (20-40); Mean Corpuscular HGB Conc 34.3 g/dl (31.0-36.0); Mean Corpuscular Hemoglobin 28.7 pg (27.0-33.0); Mean Corpuscular Volume 83.6 fL (80.0-98.0); Mean Platelet Volume 10.2 fL (9.4-12.4); Monocytes Absolute Auto 0.7 X10*3/uL (0.1-1.2); Monocytes Percent Auto 7.8 % (2-11); Neutrophils Absolute Auto 5.3 x10*3/uL (2.0-8.3); Neutrophils Percent Auto 62.3 % (45-73); Platelet Count 220 X10*3/uL (160-400); Red Blood Count 5.37 X10*6/uL (4.60-5.80); Red Cell Distribution Width 15.1 % (11.0-16.0); White Blood Count 8.5 X10*3/uL (4.8-10.8)
--- OUTSIDE RECORDS SUMMARY | 2024-02-09 02:41 | XMS_ITS | Patient Health Record ---
Author Organization [facility] Address [address] [facility] [place] [address] Care Team Providers Care Food Critic Name Role Phone Pao ZHANG, Rowena Garrido Primary Care Provider Un available Black, Matilda Unavailable [phone] Allergies No Known Allergies Reason For Referral No Information Medications Medication SIG (Take, Route, Frequency, Duration) Notes Start Date End Date Status Cleocin-T 1 % 1 application to affected area Externally Twice a day Not-Salud la Extra Depth Orthopedic Shoes (1 Pair) with Customized Heat Molded Multidensity Innersoles (3 Pair) as directed Dx: IDDM/Polyneuropathy (E10.42), Hammertoe Foot Deformity (M20.41,M20.42), Preulcerative Skin Lesion(s) (L85.1) 03/31/2022 Active Jardiance 25 MG 1 tablet Once a day Active Cozaar 25 MG 1 tablet Orally Once a day Active traZODone HCl Active Hydrocortisone 2.5 % as directed Externa lly to feet Twice a day for 30 days Not-Taking hydrOXYzine HCl 25 MG as directed Orally Active Vascepa Not-Taking Taylor 3 Active Benadryl Not-Taking Losartan Potassium 25 MG 1 tablet Orally Once a day Not-Taking Clozaril 200 MG 1 tablet Orally Once a day Active Ativan 1 MG as directed Active metFORMIN HCl Not-Ta hola Haldol Active Tricor 145 MG 1 tablet Orally Once a day for 30 day(s) Not-Taking Colace 100 MG 1 capsule as needed Orally Once a day for 30 day(s) Active Invokana Not-Taking Tylenol Not-Taking Trulicity Active Omeprazole 20 MG 1 capsule 30 minutes before morning meal Orally Once a day Active PriLOSEC 20 MG 1 capsule Orally Onc e a day for 30 day(s) Not-Taking Rosuvastatin Calcium 5 MG 1 tablet Orall y Once a day Active [place] Carbonate 600 MG as directed Ora lly Twice a day Not-Taking Ozempic Active PriLOSEC Not-Taking Vitamin D Not-Taking Lantus Not-Taking Fenofibrate 160 MG as directed Active Tresiba 100 UNIT/ML as directed Subcutaneous Active Fish Oil Not-Taking Anoro Ellipta 62.5-25 MCG/ACT 1 puff Inhalation Once a day Active HumuLIN 70/30 (70-30) 100 UNIT/ML as directed Subcutaneous Not-Taking Flonase Active Gemfibrozil 600 MG as directed Orally Twice a day Not-Taking Albuterol Sulfate Ac tive Glucophage 1000 MG 1 tablet with meals Orally Twice a day for 30 day(s) Not-Taking Immunizations Vaccine Route Administration Date Status Comme nts COVID-19 Pfizer BioNTAmlogic Vaccine Unknown 12/25/2020 Administered First Dose: 04/01/20 Second Dose: 04/22/2020 Influenza Unknown 11/23/2014 Administered Influenza Unknown 11/12/2016 Administered Influenza Unknown 11/08/2017 Administered Influenza Unknown 12/11/2021 Administered Influenza Unknown 05/20/2023 Refused Pneumococcal Unknown 02/19/2016 Refused Social History Tobacco Use: Social History Observation Description Date Details (start date - stop date) Current Smoker NA - NA Tobacco Use/Smoking Question Answer Notes Are you a: current smoker How often do you smoke cigarettes? every day How many cigarettes a day do you smoke? 31 or mo re How soon after you wake up d o you smoke your first cigarette? within 5 minutes Are you interested in quitting? Thinking about q uitting Alcohol Screen Question Answer Notes Did you have a drink containing alcohol in the p ast year? No Points 0 Interpretation Negative Tobacco use other than smoking: Question Answer Notes Are you an other tobacco user? No Problems Problem Type SNOMED Code ICD Code Onset Dates Problem Status W/U Status Risk Notes Problem Acquired hammer toe of right foot (2007769741300089 ) Other hammer toe(s) (acquired), right foot (M20.41) Active confirmed Problem Acquired hammer toe of left foot (2784354978720497 ) Other hammer toe(s) (acquired), left foot (M20.42) Active confirmed Problem Localized, primary osteoarthritis of the ankle and/or foot (065949193) Primary osteoarthritis, right ankle and foot (M19.071) Active confirmed Problem Polyneuropathy due to diabetes mellitus type I (786599103) Type 1 diabetes mellitus with diabetic polyneuropathy (E10.42) Active confirmed Vital Signs Height 5ft 8in in 01/24/2024 Weight 220 lbs 01/24/2024 BMI 33.45 kg/m2 01/24/2024 Procedures Procedure Date Ordered Date Performed Result Body Sit e 15514-WZCPIPO NAIL, 6 OR MORE 02/08/2023 N/A 37641-NRQB SKIN LESIONS, OVER 4 02/08/2023 N/A 97501-HXEDEBL NAIL, 6 OR MORE 05/20/2023 N/A 52997-TDOM SKIN LESIONS, OVER 4 05/20/2023 N/A 59654-OUBISJR NAIL, 6 OR MORE 09/16/2023 N/A 78650-VCLL SKIN LESIONS, OVER 4 09/16/2023 N/A 59940-FKWNTNH NAIL, 6 OR MORE 01/24/2024 N/A 56203-Xxsmutxr Plate 01/24/2024 N/A 72080-ZHOE SKIN LESIONS, OVER 4 01/24/2024 N/A Encounters Encounter Location Date Provider Diagnosis [address] [address] 02/08/2023 Matilda Black Type 1 diabetes mellitus with diabetic polyneuropathy E10.42 and Tinea unguium B35.[address] [address] 05/20/2023 Matilda Black Type 1 diabetes mellitus with diabetic polyneuropathy E10.42 and Tinea unguium B35.[address] [address] 09/16/2023 Matilda Black Type 1 diabetes mellitus with diabetic polyneuropathy E10.42 and Tinea unguium B35.[address] [address] 01/24/2024 Matilda Black Type 1 diabetes mellitus with diabetic polyneuropathy E10.42 ; Tinea unguium B35.1 and Ingrown nail L60.0 [facility] [address] [place] [address] 09/16/2023 Matilda Gonzalez [facility] [address] [place] [address] 10/21/2023 Matilda Gonzalez Assessments Encounter Date Diagnosis (ICD Code) Assessment Notes Treatment Notes Treatment Clinical Notes Section Notes 02/08/2023 Tinea unguium (ICD-10 - B35.1) 02/08/2023 Type 1 diabetes mellitus with diabetic polyneuropathy (ICD-10 - E10.42) 05/20/2023 Type 1 diabetes mellitus with diabetic polyneuropathy (ICD-10 - E10.42) 09/16/2023 Type 1 diabetes mellitus with diabetic polyneuropathy (ICD-10 - E10.42) 01/24/2024 Type 1 diabetes mellitus with diabetic polyneuropathy (ICD-10 - E10.42) 01/24/2024 Tinea unguium (ICD-10 - B35.1) 09/16/2023 Tinea unguium (ICD-10 - B35.1) 05/20/2023 Tinea unguium (ICD-10 - B35.1) 01/24/2024 Ingrown nail (ICD-10 - L60.0) Plan Of Treatment Pending Test Test Name Order Date 00398-SMFIUIA NAIL, 6 OR MORE 01/07/2012 71539-OLOGLIW NAIL, 6 OR MORE 04/11/2012 53231-KVPLAGU NAIL, 6 OR MORE 07/11/2012 03616-OZOFQIN NAIL, 6 OR MORE 10/03/2012 52619-OTRUWHG NAIL, 6 OR MORE 12/19/2012 05834-NRPKCOY NAIL, 6 OR MORE 03/23/2013 03210-EZQVWDC NAIL, 6 OR MORE 06/21/2013 04881-GTOAOPH NAIL, 6 OR MORE 09/20/2013 06731-EPYRJKH NAIL, 6 OR MORE 12/07/2013 58731-XGBCAZO NAIL, 6 OR MORE 03/14/2014 82718-FCLNIUY NAIL, 6 OR MORE 06/20/2014 20390-FBRWHIE NAIL, 6 OR MORE 08/23/2014 17724-MDKENCV NAIL, 6 OR MORE 11/22/2014 22468-QFFZWME NAIL, 6 OR MORE 02/13/2015 55582-QZRAPTY NAIL, 6 OR MORE 05/15/2015 32661-COTKGAQ NAIL, 6 OR MORE 08/12/2015 00073-HFSQWWT NAIL, 6 OR MORE 11/11/2015 04713-INLNPVU NAIL, 6 OR MORE 02/19/2016 66472-XBLYBXH NAIL, 6 OR MORE 05/21/2016 21212-ZUHJZBY NAIL, 6 OR MORE 10/05/2016 41818-YZTRFKU NAIL, 6 OR MORE 01/11/2017 37478-GPBVUSX NAIL, 6 OR MORE 04/12/2017 56370-DJTAHSP NAIL, 6 OR MORE 09/16/2017 37023-RMJTMRG NAIL, 6 OR MORE 12/16/2017 01533-HKUXOSB NAIL, 6 OR MORE 03/17/2018 85359-ZMVNYZF NAIL, 6 OR MORE 07/14/2018 81990-XLUXZED NAIL, 6 OR MORE 01/16/2019 04801-FBIUCVO NAIL, 6 OR MORE 08/17/2019 39379-KMVGAXH NAIL, 6 OR MORE 11/20/2019 38643-LQXZFZK NAIL, 6 OR MORE 03/07/2020 12006-NZZUYVT NAIL, 6 OR MORE 06/06/2020 00835-QDBMMAJ NAIL, 6 OR MORE 09/12/2020 00981-NHBNIML NAIL, 6 OR MORE 12/26/2020 27774-AOMEKJJ NAIL, 6 OR MORE 04/07/2021 86262-RVNJQEO NAIL, 6 OR MORE 07/07/2021 24371-XFEEDGN NAIL, 6 OR MORE 10/13/2021 17480-KROMDPV NAIL, 6 OR MORE 01/12/2022 51832-WZWGMJD NAIL, 6 OR MORE 06/04/2022 97411-JKOFJJD NAIL, 6 OR MORE 08/24/2022 52165-UHLABKN NAIL, 6 OR MORE 11/19/2022 29741-IFPXWJW NAIL, 6 OR MORE 02/08/2023 24520-IFWCBGW NAIL, 6 OR MORE 05/20/2023 66105-UJJPYGS NAIL, 6 OR MORE 09/16/2023 96726-WQPKCFM NAIL, 6 OR MORE 01/24/2024 06728-Kkdiijtb Plate 01/24/2024 55001-Ogliglfj Plate 08/24/2022 98057-Fgvbpkht Plate 10/13/2021 17323-Mxrlwwfc Plate 07/07/2021 48944-Irxoudug Plate 11/22/2014 87049-Ywrpsgvq Plate 08/23/2014 44756-Awvgkufw Plate 06/20/2014 02936-Kqbuveam Plate 03/14/2014 10813-Xvyvrmoa Plate 12/07/2013 82552-Vpgtkxvn Plate 09/20/2013 65312-Yilricxt Plate 06/21/2013 62964-Etwlmdio Plate Each Additional 90274-Heumakit Plate Each Additional 10/2021 65367, J0702- INJECT or DRAIN, JOINT/BUR SA 06/06/2020 49820-RXAJ SKIN LESIONS, OVER 4 07/08/19 15723-DTKT SKIN LESIONS, OVER 4 04/07/19 30097-GHCG SKIN LESIONS, OVER 4 12/27/19 51371-KFFI SKIN LESIONS, OVER 4 10/14/19 99883-CCGB SKIN LESIONS, OVER 4 01/13/20 75158-CRZP SKIN LESIONS, OVER 4 08/25/19 23 27854-HREG SKIN LESIONS, OVER 4 06/05/19 27259-NHLJ SKIN LESIONS, OVER 4 09/16/19 24 86442-IDDF SKIN LESIONS, OVER 4 05/20/19 81650-ALGY SKIN LESIONS, OVER 4 02/09/20 98625-EGDG SKIN LESIONS, OVER 4 11/20/19 97099-BCBH SKIN LESIONS, OVER 4 01/24/20 24 68325-OPIP SKIN LESIONS, 2 TO 4 06/07/19 55756-XZMA SKIN LESIONS, 2 TO 4 09/13/19 42855-AOFM SKIN LESIONS, 2 TO 4 03/07/19 15667-QIXB SKIN LESIONS, 2 TO 4 11/20/19 98693-IOML SKIN LESIONS, 2 TO 4 08/17/19 90665-IFEI SKIN LESIONS, 2 TO 4 01/17/20 57289-ZKAH SKIN LESIONS, 2 TO 4 07/15/19 65386-MJRC SKIN LESIONS, 2 TO 4 03/17/19 46778-OPZL SKIN LESIONS, 2 TO 4 12/17/19 18 79969-GSFR SKIN LESIONS, 2 TO 4 07/19/20 18 79925-NLQO SKIN LESIONS, 2 TO 4 01/12/20 17 88129-NHST SKIN LESIONS, 2 TO 4 04/12/19 18 25386-YBBE SKIN LESIONS, 2 TO 4 06/22/19 14 07878-YGPJ SKIN LESIONS, 2 TO 4 09/21/19 14 96391-KATA SKIN LESIONS, 2 TO 4 12/08/19 14 88439-ACUR SKIN LESIONS, 2 TO 4 03/23/19 14 11734-SSQW SKIN LESIONS, 2 TO 4 10/04/19 13 98718-VCWJ SKIN LESIONS, 2 TO 4 07/12/19 13 78301-QMDU SKIN LESIONS, 2 TO 4 03/14/19 15 58827-MFXB SKIN LESIONS, 2 TO 4 06/21/19 15 15026-PXXI SKIN LESION 05/21/2016 52903-AQCY SKIN LESION 10/05/2016 Next Appt Details Provider Name:Matilda Gonzalez , 05/01/2024 01:30:00 PM, [address] [place] [address], [place], [address], Insurance Providers Payer Name Payer Address Payer Phone Subscriber Number Group Number Insured Name Patient Relationship to Insured Coverage Start Date Coverage End Date Medicare [employer] [address] [place] [address] [id number] Matty Mejia Self - patient is the insured Medical (General) History Medical History History ICD Code anxiety depression diabetic headaches/migraines high blood pressure psychiatric disorder reflux chicken pox Surgical History Surgery Date(Month/Year) Hospitalization History Reason Date(Month/Year) bad hip [facility] 10/31/2023 [facility]- pt cant remember overnight sleep study 12/2014
--- OUTSIDE RECORDS SUMMARY | 2024-02-09 02:41 | XMS_ITS ---
Author Organization [facility] Address [address] [place] [address] Care Team Providers Care Thermostat Repairer Name Role Phone Pao ZHANG, Rowena Garrido Primary Care Provider Un available Carlos Matilda Unavailable [phone] Encounters Encounter Location Date Provider Diagnosis [address] [address] 12/27/2023 Matilda Gonzalez Plan Of Treatment Next Appt Details Provider Name:Matilda Gonzalez , 05/01/2024 01:30:00 PM, [address] [place] [address], [phone], Progress Notes * Matty MCGEEDOB:[birth year] (43 yo M)Acc No.[id number]:12/27/2023 Progress Note Patient:?VARGAS Ludwig o Provider:?Matilda Gonzalez DPM :1980???Age:43 Y???Sex:Male Christo e:12/27/2023 Address: [address], [place] Pcp:Antonella Swan Subjective: * Chief Complaints: * ??? * Medical History:? Objective: * Vitals:? Assessment: Plan: * Treatment: * Images: * The named appointment provid er may or may not be the originator of this progress note, and it is not deemed complete until electronically signed by the appointment provider. Sign off status: Pending * Provider:?Matilda Gonzalez DPM Date:?2023 Generated for Rukhsana melton/Sylvia/Hans on:?02/09/2024 02:41 AM EST
--- OUTSIDE RECORDS SUMMARY | 2024-02-09 02:41 | XMS_ITS ---
[facility] Address [address] [facility] [place] [address] Care Team Providers Care Business Dean Name Role Phone Pao ZHANG, Rowena Garrido Primary Care Provider Un available Black, Matilda Unavailable [phone] Allergies No Known Allergies REASON FOR VISIT Painful nail(s) aggrevated by shoes and causing difficulty standing/walking., At Risk Footcare, Ingrown Nail Medications Medication SIG (Take, Route, Frequency, Duration) Notes Start Date End Date Status Hydrocortisone 2.5 % as directed Externa lly to feet Twice a day for 30 days Not-Taking Vascepa Not-Taking metFORMIN HCl Not-Ta hola Tricor 145 MG 1 tablet Orally Once a day for 30 day(s) Not-Taking Invokana Not-Taking PriLOSEC 20 MG 1 capsule Orally Onc e a day for 30 day(s) Not-Taking [place] Carbonate 600 MG as directed Ora lly Twice a day Not-Taking Cleocin-T 1 % 1 application to affected area Externally Twice a day Not-Takin g Benadryl Not-Taking Losartan Potassium 25 MG 1 tablet Orally Once a day Not-Taking PriLOSEC Not-Taking Fish Oil Not-Taking HumuLIN 70/30 (70-30) 100 UNIT/ML as directed Subcutaneous Not-Taking Gemfibrozil 600 MG as directed Orally Twice a day Not-Taking Glucophage 1000 MG 1 tablet with meals Orally Twice a day for 30 day(s) Not-Taking Extra Depth Orthopedic Shoes (1 Pair) with Customized Heat Molded Multidensity Innersoles (3 Pair) as directed Dx: IDDM/Polyneuropathy (E10.42), Hammertoe Foot Deformity (M20.41,M20.42), Preulcerative Skin Lesion(s) (L85.1) 03/31/2022 Active Jardiance 25 MG 1 tablet Once a day Active Vitamin D Not-Taking Lantus Not-Taking Fenofibrate 160 MG as directed Active Cozaar 25 MG 1 tablet Orally Once a day Active Clozaril 200 MG 1 tablet Orally Once a day Active Ativan 1 MG as directed Active Haldol Active Colace 100 MG 1 capsule as needed Orally Once a day for 30 day(s) Active Tylenol Not-Taking Trulicity Active traZODone HCl Active hydrOXYzine HCl 25 MG as directed Orally Active [place] 3 Active Omeprazole 20 MG 1 capsule 30 minutes before morning meal Orally Once a day Active Rosuvastatin Calcium 5 MG 1 tablet Orall y Once a day Active Tresiba 100 UNIT/ML as directed Subcutaneous Active Anoro Ellipta 62.5-25 MCG/ACT 1 puff Inhalation Once a day Active Flonase Active Ozempic Active Albuterol Sulfate Ac tive Social History Tobacco Use: Social History Observation [...] Are you an other tobacco user? No Vital Signs Height 5ft 8in in 01/24/2024 Weight 220 lbs 01/24/2024 BMI 33.45 kg/m2 01/24/2024 Procedures Procedure Date Ordered Date Performed Result Body Sit e 80111-EKEKPEE NAIL, 6 OR MORE 01/24/2024 N/A 77713-Lesjvwgk Plate 01/24/2024 N/A 37319-PWCT SKIN LESIONS, OVER 4 01/24/2024 N/A Encounters Encounter Location Date Provider Diagnosis [facility] [address] [place] [address] 01/24/2024 Matilda Black Type 1 diabetes mellitus with diabetic polyneuropathy E10.42 ; Tinea unguium B35.1 and Ingrown nail L60.0 Assessments Encounter Date Diagnosis (ICD Code) Assessment Notes Treatment Notes Treatment Clinical Notes Section Notes 01/24/2024 Type 1 diabetes mellitus with diabetic polyneuropathy (ICD-10 - E10.42) 01/24/2024 Tinea unguium (ICD-10 - B35.1) 01/24/2024 Ingrown nail (ICD-10 - L60.0) Plan Of Treatment Pending Test Test Name Order Date 84262-DJQDPWX NAIL, 6 OR MORE 01/24/2024 84795-Safshalh Plate 01/24/2024 96140-NQKE SKIN LESIONS, OVER 4 01/24/20 24 Next Appt Details Follow Up: prn, Reason: Provider Name:Matilda Gonzalez , 05/01/2024 01:30:00 PM, [address] [place] [address], [phone], Procedure Notes * Category Sub-Category Detail Notes Nail Avulsion Procedure A fine sterile e levator was placed between the eponychium, nail fold, and nail plate to separate the structures. A sterile nail splitter, and/or sterile 316 blade, was then used to longitudinally section the nail along its entire length through the eponychium to the area under the nail fold. The offending portion of nail was from the nail bed with a rolling action and then removed with a hemostat. No underlying bone was identified. There was minimal bleeding as hemostasis was achieved through the temporary use of either a digital tourniquet or the aforementioned local with epinephrine. A bacitracin sterile dressing was applied. Local wound aftercare instructions were discussed and dispensed. The patient was informed of both conservative and future surgical procedures to prevent recurrence. Tylenol or Motrin was recommended for pain or discomfort (58834), DIABETES: Matricectomy deferred at this time due to diabetes risk Anesthesia , was deferred - LISA ROPATHY: patient has medically documented neuropathic condition affecting sensation Location , Lateral nail borde r, TA Debride Nail 6-10 Nail debridement Performance o f this nail treatment by a nonprofessional would put this patients foot and overall health at risk. Therefore, debridement to affected nail(s), as described in exam, was performed extensively to reduce/remove overall nail length, girth, thickness, subungual debris, and necrotic tissue, by manual and/or electrical means through the use of a nail nipper and/or dremel-type hardboard grinder, to a more viable healthy nail plate or bed tissue 6-10 nails in total. Silver nitrate was used for any petechial bleeding as necessary. Definitive antifungal treatment options, both pharmaceutical and surgical, have been reviewed and discussed with the patient. The patient solely prefers the use of intermittent/as needed professional debridement services for their nail condition and understands the need for additional periodic treatments to maintain effectiveness in symptomatic relief - 20295 Keratoma Treatment Parring or Cutting o f Benign Hyperkeratotic Lesion(s) (-57) More than 4 Lesions - The Benign hyperkeratotic lesions, ( 5 ) in total, locations as stated and described in exam, were pared, and/or cut utilizing a sterile 15 blade, tissue nippers, and/or power dremel instrumentation - 40606 Progress Notes * Matty MCGEEDOB:[birth year] (43 yo M)Acc No.[id number]:01/24/2024 Progress Note Patient:?Ludwig MCGEE Provider:?Matilda Gonzalez DPM :1980???Age:43 Y???Sex:Male Christo e:01/24/2024 Address:[address] [place], [place] [id number] Pcp:Antonella Swan Subjective: * Chief Complaints: * ??? Painful nail(s) aggrevat ed by shoes and causing difficulty standing/walking.At Risk FootcareIngrown Nail * HPI: ???Painful Nails:?Pt States Last PCP Visit:?Date:?05/19/2023 ???At Risk footcare:?Pt States Last PCP Visit:?Date?05/19/2023 * ROS:?General/Constitutional:?Nausea?denies.?Vomiting?denies.?Hunger Thirst?denies.?Loss appetite?denies.?Chills?denies.?Fatigue?denies.?Fever?denies.?Night Sweats?denies.?Unexplained weight loss?denies.?Unexplained weight gain?denies.?HEENTM:?Dentures?denies.?Dizziness?denies.?Glasses/contacts?denies.?Retinopathy?de nies.?Blurred/double vision?denies.?TMJ?denies.?Discharge/drainage?denies.?Implants?denies.?Sore throat?denies.?Dental implants?denies.?Hard of hearing ?denies.?Difficulty chewing/swallowing/speaking?denies.?Nose bleeds?denies.?Sore mouth?denies.?Respiratory:?On Oxygen?denies.?Pneumonia/pleurisy?denies.?Bronchitis?denies.?Emphysema?denies.?C oughing?denies.?Cough blood?denies.?Shortness of breath?denies.?Wheezing?denies.?Cardiovascular:?Pacemaker?denies.?MVP?denies.?WPW?denies.?CHF?denies.?Heart attack?denies.?Septal defect?denies.?Rapid beat?denies.?Chest pain ?denies.?Atrial Fib.?denies.?Murmur/Palpitations?denies.?Gastrointestinal:?Hemorrhoids?denies.?Stomach/Abdominal pain?denies.?Dark blood stool?denies.?Irritable bowel ?denies.?Constipation?denies.?Diarrhea?denies.?Hematology:?Swelling?denies.?Clots?denies.?Varicose Veins?denies.?Bruising?denies.?Bleeding problem?denies.?Genitourinary:?Blood urine?denies.?Frequent/Painfu/urination/bladder control?denies.?Kidney stones?denies.?Infection (UTI)?denies.?Nephropathy?denies.?sex trans dis (STD)?denies.?Prostate?denies.?Musculoskeletal:?Hammertoes?denies.?Bunions?denies.?Back Pain?denies.?Muscle Cramps/ Resting?denies.?Muscle cramps / walking?denies.?Generalized aches and pains?denies.?Weakness?denies.?Integ.:?Lowery?denies.?Scars?denies.?Corns/calluses?admits.?Ingrown nails?, admits.?Painful nails?denies.?Open Sores?denies.?Rashes?denies.?Neurologic:?Difficulty sleeping?denies.?Brain disorder?denies.?Numbness?admits.?Balance trouble?denies.?Confusion?denies.?Fainting/blackouts?denies.?Tingling?admits.?Tr emors?denies.? * Medical History:? * Surgical History:?Denies Pas t Surgical History * Hospitalization/Major Diagno stic Procedure:?overnight sleep [place] [place] bad hip [facility] [place]/31/2023 * Family History:?Mother: dece ased.?Father: alive, , poor circulation, diagnosed with Diabetic - NIDDM, Other specified conditions influencing health status.? * Social History:?Tobacco Use:?Tobacco Use/Smoking?Are you a:?current smoker ?How often do you smoke cigarettes??every day ?How many cigarettes a day do you smoke??31 or more ?How soon after you wake up do you smoke your first cigarette??within 5 minutes ?Are you interested in quitting??Thinking about quitting ?Tobacco use other than smoking?Are you an other tobacco user??No ???Drugs/Alcohol:?Drugs?Have you used drugs other than those for medical reasons in the past 12 months??No ?Alcohol Screen?Did you have a drink containing alcohol in the past year??No ?Points?0 ?Interpretation?Negative ???Miscellaneous:?Caffeine: yes, frequency:, 2-3 cups per day. ?Children: no. ?Exercise: yes, limited- weight lifting. ?Marital status: single. ?Occupation: disabled. * Medications:?TakingOzempic A lbuterol Sulfate Flonase Anoro Ellipta 62.5-25 MCG/ACT Aerosol Powder Breath Activated 1 puff Inhalation Once a day Tresiba 100 UNIT/ML Solution as directed Subcutaneous Rosuvastatin Calcium 5 MG Tablet 1 tablet Orally Once a day Omeprazole 20 MG Capsule Delayed Release 1 capsule 30 minutes before morning meal Orally Once a day Trulicity [place] 3 hydrOXYzine HCl 25 MG Tablet as directed Orally traZODone HCl Colace 100 MG Capsule 1 capsule as needed Orally Once a day Haldol Ativan 1 MG Tablet as directed Clozaril 200 MG Tablet 1 tablet Orally Once a day Cozaar 25 MG Tablet 1 tablet Orally Once a day Jardiance 25 MG Tablet 1 tablet Once a day Extra Depth Orthopedic Shoes (1 Pair) with Customized Heat Molded Multidensity Innersoles (3 Pair) as directed Dx: IDDM/Polyneuropathy (E10.42), Hammertoe Foot Deformity (M20.41,M20.42), Preulcerative Skin Lesion(s) (L85.1) Fenofibrate 160 MG Tablet as directed Taking Ozempic Taking Albuterol Sulfate Taking Flonase Taking Anoro Ellipta 62.5-25 MCG/ACT Aerosol Powder Breath Activated 1 puff Inhalation Once a day Taking Tresiba 100 UNIT/ML Solution as directed Subcutaneous Taking Rosuvastatin Calcium 5 MG Tablet 1 tablet Orally Once a day Taking Omeprazole 20 MG Capsule Delayed Release 1 capsule 30 minutes before morning meal Orally Once a day Taking Trulicity Taking [place] 3 Taking hydrOXYzine HCl 25 MG Tablet as directed Orally Taking traZODone HCl Taking Colace 100 MG Capsule 1 capsule as needed Orally Once a day Taking Haldol Taking Ativan 1 MG Tablet as directed Taking Clozaril 200 MG Tablet 1 tablet Orally Once a day Taking Cozaar 25 MG Tablet 1 tablet Orally Once a day Taking Jardiance 25 MG Tablet 1 tablet Once a day Taking Extra Depth Orthopedic Shoes (1 Pair) with Customized Heat Molded Multidensity Innersoles (3 Pair) as directed Dx: IDDM/Polyneuropathy (E10.42), Hammertoe Foot Deformity (M20.41,M20.42), Preulcerative Skin Lesion(s) (L85.1) Taking Fenofibrate 160 MG Tablet as directed Not-Taking/PRNTylenol Lantus Vitamin D PriLOSEC Glucophage 1000 MG Tablet 1 tablet with meals Orally Twice a day Gemfibrozil 600 MG Tablet as directed Orally Twice a day HumuLIN 70/30 (70-30) 100 UNIT/ML Suspension as directed Subcutaneous Fish Oil [place] Carbonate 600 MG Capsule as directed Orally Twice a day PriLOSEC 20 MG Capsule Delayed Release 1 capsule Orally Once a day Cleocin-T 1 % Gel 1 application to affected area Externally Twice a day Losartan Potassium 25 MG Tablet 1 tablet Orally Once a day Benadryl Vascepa Hydrocortisone 2.5 % Cream as directed Externally to feet Twice a day Invokana Tricor 145 MG Tablet 1 tablet Orally Once a day metFORMIN HCl Medication List reviewed and reconciled with the patientNot- Taking/PRN Tylenol Not-Taking/PRN Lantus Not-Taking/PRN Vitamin D Not-Taking/PRN PriLOSEC Not-Taking/PRN Glucophage 1000 MG Tablet 1 tablet with meals Orally Twice a day Not-Taking/PRN Gemfibrozil 600 MG Tablet as directed Orally Twice a day Not-Taking/PRN HumuLIN 70/30 (70-30) 100 UNIT/ML Suspension as directed Subcutaneous Not-Taking/PRN Fish Oil Not-Taking/PRN [place] Carbonate 600 MG Capsule as directed Orally Twice a day Not-Taking/PRN PriLOSEC 20 MG Capsule Delayed Release 1 capsule Orally Once a day Not-Taking/PRN Cleocin-T 1 % Gel 1 application to affected area Externally Twice a day Not-Taking/PRN Losartan Potassium 25 MG Tablet 1 tablet Orally Once a day Not-Taking/PRN Benadryl Not-Taking/PRN Vascepa Not-Taking/PRN Hydrocortisone 2.5 % Cream as directed Externally to feet Twice a day Not- Taking/PRN Invokana Not-Taking/PRN Tricor 145 MG Tablet 1 tablet Orally Once a day Not-Taking/PRN metFORMIN HCl Medication List reviewed and reconciled with the patient * Allergies:?N.K.D.A.yes[Aller gies Verified] Objective: * Vitals:?Ht: 5ft 8in, Wt:220, BMI:33.45, Shoe size: 9.5-11, BS: 343, Ht-cm: 172.72 cm, Wt-k.79 kg. * Examination: ???Ophthalmology Referral: ?DIABETES EYE EXAM?Ingrown Nail: ?INSPECTION:?Reveals nail incurvation, pain on palpation, groove hypertrophy, groove ischemia, Lateral nail border, TA.?Nails: ?NAILS are:?grossly elongated,overgrown,dystrophic,greater than 5mm thick,discolored and friable with crumbly malodorous subungual debris, with pain on palpation ,?T1 , T2 , T4 , T5 , T6 , T7 , T9.?Neurological: ?SENSORY:?pt relates, burning, anesthesia, especially in the evening, 5.07 monofilament test , reduced , exam demonstrates, reduced vibration lower extremity reduced light touch sensation reduced sharp/dull pin prick discrimination .?Dermatologic: ?SKIN FINDINGS:?Skin exam reveals Keratotic lesion(s) located at SUB MTH (s),1,B/L?Plantar Heel(s), s),Left ,, SUB MTH (s), 5 , B/L.? Assessment: * Assessment: 1.?Type 1 diabetes mellitus with diabetic polyneuropathy - E10.42 (Primary)???2.?Tinea unguium - B35.1???3.?Ingrown nail - L60.0??? Plan: * Treatment: 2.?Tinea unguium?Procedure: 47731-IFHZRQP NAIL, 6 OR MORE 3.?Ingrown nail?Procedure: 12788-Zaoahlfy Plate * Procedures:?Debride Nail 6-10:?Nail debridement?Performance of this nail treatment by a nonprofessional would put this patients foot and overall health at risk. Therefore, debridement to affected nail(s), as described in exam, was performed extensively to reduce/remove overall nail length, girth, thickness, subungual debris, and necrotic tissue, by manual and/or electrical means through the use of a nail nipper and/or dremel-type hardboard grinder, to a more viable healthy nail plate or bed tissue 6-10 nails in total. Silver nitrate was used for any petechial bleeding as necessary. Definitive antifungal treatment options, both pharmaceutical and surgical, have been reviewed and discussed with the patient. The patient solely prefers the use of intermittent/as needed professional debridement services for their nail condition and understands the need for additional periodic treatments to maintain effectiveness in symptomatic relief - 01713.?Keratoma Treatment:?Parring or Cutting of Benign Hyperkeratotic Lesion(s)?(-57) More than 4 Lesions - The Benign hyperkeratotic lesions, ( 5 ) in total, locations as stated and described in exam, were pared, and/or cut utilizing a sterile 15 blade, tissue nippers, and/or power dremel instrumentation - 37986.?Nail Avulsion:?Location?, Lateral nail border, TA.?Anesthesia?, was deferred - NEUROPATHY: patient has medically documented neuropathic condition affecting sensation.?Procedure?A fine sterile elevator was placed between the eponychium, nail fold, and nail plate to separate the structures. A sterile nail splitter, and/or sterile 316 blade, was then used to longitudinally section the nail along its entire length through the eponychium to the area under the nail fold. The offending portion of nail was from the nail bed with a rolling action and then removed with a hemostat. No underlying bone was identified. There was minimal bleeding as hemostasis was achieved through the temporary use of either a digital tourniquet or the aforementioned local with epinephrine. A bacitracin sterile dressing was applied. Local wound aftercare instructions were discussed and dispensed. The patient was informed of both conservative and future surgical procedures to prevent recurrence. Tylenol or Motrin was recommended for pain or discomfort (46268), DIABETES: Matricectomy deferred at this time due to diabetes risk.? * Procedure Codes:?78908 DEBRI DE NAIL, 6 OR MORE, Modifiers: XS 95286 Avulsion Plate, [place]: [place] [address] TRIM SKIN LESIONS, OVER 4, Modifiers: XS * Follow Up:?prn * Images: * Sign off status: Completed true * Provider:?Matilda Gonzalez DPM Date:?2023 Generated for Rukhsana melton/Sylvia/aHns on:?02/09/2024 02:40 AM EST History and Physical Notes * HPI (History of Present Illness) Category Sub-Category Detail Notes Category Not es Painful Nails Pt States Last PCP Visit: Date:: 05/19/2023 At Risk footcare Pt States Last PCP Visit: Date: 4 Examination Category Sub-Category Detail Notes Category Not es Ingrown Nail INSPECTION: Reveals nail inc urvation, pain on palpation, groove hypertrophy, groove ischemia, Lateral nail border, TA Neurological SENSORY: pt relates, burn ing, anesthesia, especially in the evening, 5.07 monofilament test , reduced , exam demonstrates, reduced vibration lower extremity reduced light touch sensation reduced sharp/dull pin prick discrimination BABINSKI REFLEX: TINEL'S COMPRESSION: Dermatologic SKIN FINDINGS: Skin exam reveal s Keratotic lesion(s) located at SUB MTH (s),1,B/L Plantar Heel(s), s),Left ,, SUB MTH (s), 5 , B/L Ophthalmology Referral DIABETES EYE EXAM Procedure Per formed:: No 02/17/2024 first appt Nails NAILS are: grossly elongated,overgrown,dystrophic,greater than 5mm thick,discolored and friable with crumbly malodorous subungual debris, with pain on palpation , T1 , T2 , T4 , T5 , T6 , T7 , T9
--- OUTSIDE RECORDS SUMMARY | 2024-02-09 02:41 | XMS_ITS ---
Author Organization [facility] Address [address] [place] [address] Care Team Providers Care Sand Blaster Name Role Phone Pao ZHANG, Rowena Garrido Primary Care Provider Un available Carlos Matilda Unavailable [phone] Encounters Encounter Location Date Provider Diagnosis [address] [address] 12/16/2023 Matilda Gonzalez Plan Of Treatment Next Appt Details Provider Name:Matilda Gonzalez , 05/01/2024 01:30:00 PM, [address] [place] [address], [phone], Progress Notes * Matty MCGEEDOB:[birth year] (43 yo M)Acc No.[id number]:12/16/2023 Progress Note Patient:?VARGAS Ludwig o Provider:?Matilda Gonzalez DPM :1980???Age:43 Y???Sex:Male Christo e:12/16/2023 [facility] [place] Pcp:Antonella Swan Subjective: * Chief Complaints: * [...]
== END 2024-02-03 13:44 | disposition home or self-care (01) ==
LOC: HO.LABR 13:43
PROVIDERS: PCP Internal Medicine
DX: Z79.899 Other long term (current) drug therapy (principal)
CPT/HCPCS: 36415; 85025

== ENCOUNTER 2024-02-14 12:46 | Outpatient (AMB) | payer MEDICARE, MEDICAID, SELFPAY ==
--- OUTSIDE RECORDS SUMMARY | 2024-02-14 12:49 | XMS_ITS | Patient Health Record ---
Author Organization [facility] Address [address] [facility] [place] [address] Care Team Providers Care Health Workers Name Role Phone Pao ZHANG, Rowena Garrido Primary Care Provider Un available Black, Matilda Unavailable [phone] Allergies No Known Allergies Reason For Referral [...] MG as directed Orally Active Vascepa Not-Taking [place] 3 Active Benadryl Not-Taking Losartan Potassium 25 [...] tablet Orall y Once a day Active Crum Carbonate 600 MG as directed Ora lly [...] Administration Date Status Comme nts COVID-19 Pfizer [employer] Vaccine Unknown 12/25/2020 Administered First Dose: 04/01/20 [...] Problem Acquired hammer toe of right foot (2551762727846740 ) Other hammer toe(s) (acquired), right foot (M20.41) Active confirmed Problem Acquired hammer toe of left foot (3928727078384541 ) Other hammer toe(s) (acquired), left foot (M20.42) Active confirmed Problem Localized, primary osteoarthritis of the ankle and/or foot (978268860) Primary osteoarthritis, right ankle and foot (M19.071) Active confirmed Problem Polyneuropathy due to diabetes mellitus type I (168067340) Type 1 diabetes mellitus with diabetic polyneuropathy (E10.42) Active confirmed Vital Signs Height 5ft 8in in 01/24/2024 Weight 220 lbs 01/24/2024 BMI 33.45 kg/m2 01/24/2024 Procedures Procedure Date Ordered Date Performed Result Body Sit e 06682-GLDKTVA NAIL, 6 OR MORE 05/20/2023 N/A 18918-DGDN SKIN LESIONS, OVER 4 05/20/2023 N/A 11902-NFXHZKY NAIL, 6 OR MORE 09/16/2023 N/A 29693-QTME SKIN LESIONS, OVER 4 09/16/2023 N/A 83234-NKWIQUN NAIL, 6 OR MORE 01/24/2024 N/A 49134-Nckkjjxb Plate 01/24/2024 N/A 16463-DVHO SKIN LESIONS, OVER 4 01/24/2024 N/A Encounters Encounter Location Date Provider Diagnosis [address] [address] 05/20/2023 Matilda Black Type 1 diabetes mellitus with diabetic polyneuropathy E10.42 and Tinea unguium B35.[address] [address] 09/16/2023 Matilda Black Type 1 diabetes mellitus with diabetic polyneuropathy E10.42 and Tinea unguium B35.[address] [address] 01/24/2024 Matilda Black Type 1 diabetes mellitus with diabetic polyneuropathy E10.42 ; Tinea unguium B35.1 and Ingrown nail L60.[address] [address] 09/16/2023 Matilda Black [address] [address] 10/21/2023 Matilda Black Assessments Encounter Date Diagnosis (ICD Code) Assessment Notes Treatment Notes Treatment Clinical Notes Section Notes 05/20/2023 Type 1 diabetes mellitus with diabetic [...] Treatment Pending Test Test Name Order Date 61617-DYJGMBE NAIL, 6 OR MORE 01/07/2012 49241-TFCJCYJ NAIL, 6 OR MORE 04/11/2012 14645-OTNGPHC NAIL, 6 OR MORE 07/11/2012 45585-UNQASJS NAIL, 6 OR MORE 10/03/2012 10172-CWBBPLB NAIL, 6 OR MORE 12/19/2012 08867-TRTYREC NAIL, 6 OR MORE 03/23/2013 42610-EBCMEJE NAIL, 6 OR MORE 06/21/2013 73641-CEXLDRJ NAIL, 6 OR MORE 09/20/2013 12053-LJQBRCS NAIL, 6 OR MORE 12/07/2013 85312-FLUCSFI NAIL, 6 OR MORE 03/14/2014 28332-REZPXEC NAIL, 6 OR MORE 06/20/2014 68494-KXTJBXM NAIL, 6 OR MORE 08/23/2014 72262-QNYVKEK NAIL, 6 OR MORE 11/22/2014 93274-FIAUYBJ NAIL, 6 OR MORE 02/13/2015 12810-XFXBIDX NAIL, 6 OR MORE 05/15/2015 46607-BSLUTED NAIL, 6 OR MORE 08/12/2015 80365-HDXSTRD NAIL, 6 OR MORE 11/11/2015 90823-YHZZGMQ NAIL, 6 OR MORE 02/19/2016 22837-GSNXHUN NAIL, 6 OR MORE 05/21/2016 54814-VQJDNYB NAIL, 6 OR MORE 10/05/2016 54965-LFUVXHG NAIL, 6 OR MORE 01/11/2017 43552-EGYARXU NAIL, 6 OR MORE 04/12/2017 23696-ILMCHTE NAIL, 6 OR MORE 09/16/2017 34469-XXEAAUF NAIL, 6 OR MORE 12/16/2017 90843-ZZKZPVC NAIL, 6 OR MORE 03/17/2018 83431-KPDYBVO NAIL, 6 OR MORE 07/14/2018 68850-GVWYWJM NAIL, 6 OR MORE 01/16/2019 79765-KDUSYPU NAIL, 6 OR MORE 08/17/2019 33596-YLYVKPI NAIL, 6 OR MORE 11/20/2019 88933-ECIHSDR NAIL, 6 OR MORE 03/07/2020 51867-JJOPJTN NAIL, 6 OR MORE 06/06/2020 90968-JCFIROL NAIL, 6 OR MORE 09/12/2020 94063-GJMLFOH NAIL, 6 OR MORE 12/26/2020 38145-XPTFLUF NAIL, 6 OR MORE 04/07/2021 98800-OOGBRGU NAIL, 6 OR MORE 07/07/2021 17170-OKRTUGR NAIL, 6 OR MORE 10/13/2021 82089-RHNXJTW NAIL, 6 OR MORE 01/12/2022 83914-LXSMVGW NAIL, 6 OR MORE 06/04/2022 18643-PCLNZIQ NAIL, 6 OR MORE 08/24/2022 43198-PKIDODK NAIL, 6 OR MORE 11/19/2022 91900-SLGTBIW NAIL, 6 OR MORE 02/08/2023 76189-ZHVHXDH NAIL, 6 OR MORE 05/20/2023 92115-TBEIKSA NAIL, 6 OR MORE 09/16/2023 62757-CKEZNOV NAIL, 6 OR MORE 01/24/2024 67246-Ufqrslbo Plate 01/24/2024 03943-Omgcwenv Plate 08/24/2022 56468-Nhsevyjc Plate 10/13/2021 36441-Hpbgheii Plate 07/07/2021 14466-Iroleybz Plate 11/22/2014 60183-Acnsiqzy Plate 08/23/2014 67270-Xqztzhir Plate 06/20/2014 01473-Jaobjfsl Plate 03/14/2014 06140-Vbsdhfmy Plate 12/07/2013 05731-Goljiwjo Plate 09/20/2013 66028-Jmqxsapj Plate 06/21/2013 78175-Feluzsze Plate Each Additional 31521-Tpjzipaw Plate Each Additional 10/2021 70596, J0702- INJECT or DRAIN, JOINT/BUR SA 06/06/2020 37618-IEPL SKIN LESIONS, OVER 4 07/08/19 22008-CTZO SKIN LESIONS, OVER 4 04/07/19 63629-OBRB SKIN LESIONS, OVER 4 12/27/19 21 88478-VPUD SKIN LESIONS, OVER 4 10/14/19 97460-AZDU SKIN LESIONS, OVER 4 01/13/20 60344-XPCM SKIN LESIONS, OVER 4 08/25/19 23 41650-OJPH SKIN LESIONS, OVER 4 06/05/19 99593-ADZB SKIN LESIONS, OVER 4 09/16/19 48923-QKUT SKIN LESIONS, OVER 4 05/20/19 41502-OCDU SKIN LESIONS, OVER 4 02/09/20 20675-XXNG SKIN LESIONS, OVER 4 11/20/19 51152-PBEV SKIN LESIONS, OVER 4 01/24/20 00779-HAUQ SKIN LESIONS, 2 TO 4 06/07/19 21 69823-KRMU SKIN LESIONS, 2 TO 4 09/13/19 21 04115-LINX SKIN LESIONS, 2 TO 4 03/07/19 21 61630-UHUI SKIN LESIONS, 2 TO 4 11/20/19 20 82136-HCXK SKIN LESIONS, 2 TO 4 08/17/19 20 81149-SGBV SKIN LESIONS, 2 TO 4 01/17/20 19 51036-QWWI SKIN LESIONS, 2 TO 4 07/15/19 19 92626-JJYU SKIN LESIONS, 2 TO 4 03/17/19 19 05399-LCVA SKIN LESIONS, 2 TO 4 12/17/19 18 04947-PWXQ SKIN LESIONS, 2 TO 4 09/17/19 18 70486-BZBT SKIN LESIONS, 2 TO 4 01/12/20 17 13232-KYQF SKIN LESIONS, 2 TO 4 04/12/19 18 94923-RMWD SKIN LESIONS, 2 TO 4 06/22/19 14 78697-WEAI SKIN LESIONS, 2 TO 4 09/21/19 14 83773-HCCU SKIN LESIONS, 2 TO 4 12/08/19 14 73117-AKZG SKIN LESIONS, 2 TO 4 03/23/19 14 73978-RVGS SKIN LESIONS, 2 TO 4 10/04/19 13 05698-BKWL SKIN LESIONS, 2 TO 4 07/12/19 13 74417-RVIT SKIN LESIONS, 2 TO 4 03/14/19 15 86735-NMEQ SKIN LESIONS, 2 TO 4 06/21/19 15 17571-EUMT SKIN LESION 05/21/2016 80308-OAIO SKIN LESION 10/05/2016 Next Appt Details Provider Name:Matilda Gonzalez , 05/01/2024 01:30:00 PM, [address] [place], [address], Insurance Providers Payer Name Payer Address Payer Phone Subscriber Number Group Number Insured Name Patient Relationship to Insured Coverage Start Date Coverage End Date Medicare [employer] [address] [place] [address] [id number] Matty Mejia Self - patient is the insured Medical (General) History Medical History History ICD Code anxiety depression diabetic headaches/migraines high blood pressure psychiatric disorder reflux chicken pox Surgical History Surgery Date(Month/Year) Hospitalization History Reason Date(Month/Year) bad [place] [facility] [place] [facility] [place] overnight sleep study 12/2014
--- OUTSIDE RECORDS SUMMARY | 2024-02-14 12:49 | XMS_ITS ---
[facility] Organization [facility] Address [address] [facility] [place] [address] Care Team Providers Care Gas Pump Attendant Name Role Phone Pao ZHANG, Rowena Garrido Primary Care Provider Un available Black, Matilda Unavailable [phone] Allergies No Known Allergies REASON FOR VISIT [...] e a day for 30 day(s) Not-Taking [place] Carbonate 600 MG as directed Ora lly [...] HCl 25 MG as directed Orally Active [place] 3 Active Omeprazole 20 MG 1 capsule [...] Ordered Date Performed Result Body Sit e 50787-CHMDSMZ NAIL, 6 OR MORE 01/24/2024 N/A 81037-Pzdakieu Plate 01/24/2024 N/A 85293-LTNM SKIN LESIONS, OVER 4 01/24/2024 N/A Encounters Encounter Location Date Provider Diagnosis [facility] [employer] [address] [place] [address] 01/24/2024 Matilda Black Type 1 diabetes mellitus [...] Treatment Pending Test Test Name Order Date 62544-XWCJQGG NAIL, 6 OR MORE 01/24/2024 26271-Jzadmnjx Plate 01/24/2024 49900-UBLO SKIN LESIONS, OVER 4 01/24/20 24 Next Appt Details Follow Up: prn, Reason: Provider Name:Matilda Gonzalez , 05/01/2024 01:30:00 PM, [address] [place] [address], [phone], Procedure Notes * Category Sub-Category Detail Notes [...] Motrin was recommended for pain or discomfort (31369), DIABETES: Matricectomy deferred at this time due [...] use of a nail nipper and/or dremel-type napper grinder, to a more viable healthy nail [...] to maintain effectiveness in symptomatic relief - 68985 Keratoma Treatment Parring or Cutting o f Benign Hyperkeratotic Lesion(s) (-57) More than 4 Lesions - The Benign hyperkeratotic lesions, ( 5 ) in total, locations as stated and described in exam, were pared, and/or cut utilizing a sterile 15 blade, tissue nippers, and/or power dremel instrumentation - 83297 Progress Notes * Matty MCGEEDOB:[birth year] (43 yo M)Acc No.[id number]:01/24/2024 Progress Note Patient:?Ludwig MCGEE Provider:?Matilda Gonzalez DPM :1980???Age:43 Y???Sex:Male Christo e:01/24/2024 Address:[address] [place], [place] [id number] Pcp:Antonella Swan Subjective: * Chief Complaints: * [...] * Hospitalization/Major Diagno stic Procedure:[place] [place] [facility] [place]23 * Family History:?Mother: dece ased.?Father: alive, [...] morning meal Orally Once a day Trulicity [place] 3 hydrOXYzine HCl 25 MG Tablet as [...] Orally Once a day Taking Trulicity Taking [place] 3 Taking hydrOXYzine HCl 25 MG Tablet [...] UNIT/ML Suspension as directed Subcutaneous Fish Oil [place] Carbonate 600 MG Capsule as directed Orally [...] as directed Subcutaneous Not-Taking/PRN Fish Oil Not-Taking/PRN [place] Carbonate 600 MG Capsule as directed Orally [...] - L60.0??? Plan: * Treatment: 2.?Tinea unguium?Procedure: 94654-MHWEEVO NAIL, 6 OR MORE 3.?Ingrown nail?Procedure: 33912-Uxoxbpnu Plate * Procedures:?Debride Nail 6-10:?Nail debridement?Performance of this nail treatment by a nonprofessional would put this patients foot and overall health at risk. Therefore, debridement to affected nail(s), as described in exam, was performed extensively to reduce/remove overall nail length, girth, thickness, subungual debris, and necrotic tissue, by manual and/or electrical means through the use of a nail nipper and/or dremel-type napper grinder, to a more viable healthy nail [...] to maintain effectiveness in symptomatic relief - 69779.?Keratoma Treatment:?Parring or Cutting of Benign Hyperkeratotic Lesion(s)?(-57) More than 4 Lesions - The Benign hyperkeratotic lesions, ( 5 ) in total, locations as stated and described in exam, were pared, and/or cut utilizing a sterile 15 blade, tissue nippers, and/or power dremel instrumentation - 58820.?Nail Avulsion:?Location?, Lateral nail border, TA.?Anesthesia?, was deferred [...] Motrin was recommended for pain or discomfort (33974), DIABETES: Matricectomy deferred at this time due to diabetes risk.? * Procedure Codes:?04374 DEBRI DE NAIL, 6 OR MORE, Modifiers: XS 07636 Avulsion Plate, [place]: [place] [address] TRIM SKIN LESIONS, OVER 4, Modifiers: XS * Follow Up:?prn * Images: * Sign off status: Completed true * Provider:?Matilda Gonzalez DPM Date:?2023 Generated for Rukhsana melton/Sylvia/Hans on:?02/14/2024 12:48 PM EST History and Physical Notes * HPI [...]
--- OUTSIDE RECORDS SUMMARY | 2024-02-14 12:49 | XMS_ITS ---
Author Organization [facility] Address [address] [place] [address] Care Team Providers Care Emerging Solutions Executive Name Role Phone Pao ZHANG, Rowena Garrido Primary Care Provider Un available Carlos Matilda Unavailable [phone] Encounters Encounter Location Date Provider Diagnosis [address] [address] 12/27/2023 Matilda Gonzalez Plan Of Treatment Next Appt Details Provider Name:Matilda Gonzalez , 05/01/2024 01:30:00 PM, [address] [place] [address], [phone], Progress Notes * Matty MCGEEDOB:[birth year] (43 yo M)Acc No.[id number]:12/27/2023 Progress Note Patient:?VARGAS Ludwig o Provider:?Matilda Gonzalez DPM :1980???Age:43 Y???Sex:Male Christo e:12/27/2023 Address: [address], [place] Pcp:Antonella Swan Subjective: * Chief Complaints: * [...]
--- OUTSIDE RECORDS SUMMARY | 2024-02-14 12:49 | XMS_ITS ---
Author Organization [facility] Address [address] [place] [address] Care Team Providers Care Ob Gyn Physician Assistant Name Role Phone Pao ZHANG, Rowena Garrido Primary Care Provider Un available Carlos Matilda Unavailable [phone] Encounters Encounter Location Date Provider Diagnosis [address] [address] 12/16/2023 Matilda Gonzalez Plan Of Treatment Next Appt Details Provider Name:Matilda Gonzalez , 05/01/2024 01:30:00 PM, [address] [place] [address], [phone], Progress Notes * Matty MCGEEDOB:[birth year] (43 yo M)Acc No.[id number]:12/16/2023 Progress Note Patient:?VARGAS Ludwig o Provider:?Matilda Gonzalez DPM :1980???Age:43 Y???Sex:Male Christo e:12/16/2023 Address: [address], [place] Pcp:Antonella Swan Subjective: * Chief Complaints: * [...] DPM Date:?2023 Generated for Rukhsana melton/Sylvia/Hans on:?02/14/2024 12:49 PM EST
--- NOTE | 2024-02-14 12:53 | MHC.PC.OV ---
Vital Signs 02/14/24 12:57 Height 5 ft 8 in Weight 218 lb BMI 33.1 BP 110/76 Blood Pressure Location Rt brachial Position Sitting Pulse 92 Pulse Source Pulse Oximeter Pulse Oximetry (%) 98 Oxygen Delivery Method Room Air Intake Visit Reasons: Rsch from 02/08 Allergies No Known Allergies Allergy (Verified 02/14/24 13:16) Medication List - Last Reconciled 02/14/24 by Rowena Cedeno MD acetaminophen (Tylenol Extra Strength) 500 mg PO Q12H PRN albuterol sulfate 90 mcg/actuation 2 puffs inhalation Q6H PRN bisacodyl (Dulcolax (bisacodyl)) 10 mg (2 x 5 mg) PO BEDTIME PRN 2 days clozapine 200 mg PO DAILY docusate sodium 100 mg PO BID empagliflozin 25 mg PO DAILY fenofibrate 160 mg PO DAILY ferrous fumarate 324 mg PO DAILY flash glucose scanning reader ([employer] Maria D 2 Pearson) As directed flash glucose sensor ([employer] Maria D 2 Sensor kit) As directed fluticasone propionate 50 mcg/actuation (Flonase Allergy Relief) 1 spray intranasal BEDTIME 30 days haloperidol 5 mg PO BID hydroxyzine HCl 25 mg PO DAILY insulin degludec (Tresiba U-100 Insulin) 50 units subcut DAILY lorazepam 1 mg PO DAILY PRN omeprazole 20 mg PO BID pen needle, diabetic (Comfort EZ Pen [place]) inject insulin twice daily rosuvastatin 5 mg PO DAILY semaglutide (Ozempic) 1 mg subcut TH@0900 umeclidinium-vilanterol 62.5-25 mcg/actuation (Anoro Ellipta) 1 ea PO DAILY Tobacco use date assessed: 02/14/24 Dental Screening Dental Screen Date: 09/14/23 HPI Rsch from 02/08 HPI Details 44 year-old male with diabetes mellitus, hyperlipidemia, hypertension, with history schizoaffective disorder, and obesity, here today accompanied by his caregiver here today for follow-up. He has been taking his medicines as directed but has still not been noncompliant with diet, continues to smoke cigarettes with no desire to quit at present time adoes nd not engage in any regular exercise. Recently seen by Nephrology Dr. Ye, who has diagnosed him with stage III chronic kidney disease. Goal is to slow progression of renal disease and advised to maintain blood pressure less than 130/80, have a tight control blood sugar with A1c maintain below 7% and importance of smoking cessation has been discussed with patient, but patient has no intention to quit weight loss also recommended. Reinforced avoidance of metformin due to risk of lactic acidosis and continue on SGLT- 2 inhibitors for renal protection. Up-to-date with diabetes foot exam, sees Dr. Gonzalez for diabetes foot care and treatment of TInea uungium and ingrown toenail Has an appointment for his diabetes retinopathy screening later this month, sees Dr. Graves [facility] Medical History (Updated 02/14/24 @ 13:45 by Rowena Cedeno MD) CKD (chronic kidney disease) stage 3, GFR 30-59 ml/min Tinea unguium Type 2 diabetes mellitus with diabetic polyneuropathy CKD (chronic kidney disease) stage 4, GFR 15-29 ml/min Type 2 diabetes mellitus with complication, with long-term current use of insulin Uncontrolled diabetes mellitus with hyperglycemia Hypercalcemia Noncompliance with medication regimen Rash and nonspecific skin eruption Tremor Vitamin D deficiency Mixed dyslipidemia Restrictive airway disease Type 2 diabetes mellitus with other diabetic kidney complication Solitary pulmonary nodule on lung CT Smoker unmotivated to quit Obesity (BMI 30-39.9) Schizoaffective disorder Essential hypertension Surgical History No pertinent past surgical history Family History Father Unknown family medical history Mother Unknown family medical history Brother No problems noted. Sister No problems noted. Social History Housing: Other Housing Other:: alf Alcohol intake: never Patient Tobacco Use Status: Current everyday Tobacco user Cigarette Packs Per Day: 2 e-Cigarette/Vaping Use: Never Used Substance Use Type: Marijuana Advance Directives Date on File: 12/06/23 service: No Current occupational status: disabled Cognitive needs: No Hearing needs: No Vision needs: Yes Questionnaire Thrive Questionnaire Date Thrive assessed: 09/14/23 I am a: Patient What is your living situation today?: I have a steady place to live Within the past 12 months, did the food you bought not last and you didn't have the money to get more?: Never true Within the past 12 months, did you worry whether your food would run out before you got money to buy more?: Never true Do you have trouble paying for medicines?: No Do you have trouble getting transportation to medical appointments?: No Do you have trouble paying your heating and electricity bill?: No Do you have trouble taking care of your child, family member or friend?: No Do you have trouble with day-to-day activities such as bathing, preparing meals, shopping, managing finances, etc.?: No Are you currently unemployed and looking for a job?: No Are you interested in more education?: No Please select the resources that you would like help with: None Currently or been in a relationship where the following occur: I choose not to answer THRIVE Score: 0 WILBERTO-7 AMB Questionnaire WILBERTO-7 Date WILBERTO - 7 assessed: 05/19/23 Source: Developed by Drs. Mauro Lunsford, Kimmie Rizvi, Remy Mora and colleagues, with an educational dale from [employer]. Review of Systems Const Denies fatigue, Denies fever(s), Denies lethargy and Denies malaise Eyes Denies blurry vision ENT Denies post nasal drip, Denies sinus pain, Denies sinus pressure and Denies other ( Thrush) Card Denies chest pain, Denies pedal edema, Denies dyspnea and Denies orthopnea Resp Denies cough, Denies hemoptysis, Denies dyspnea and Denies wheezing GI Denies abdominal pain and Denies heartburn Reports urinary frequency Musc Denies myalgias, Denies arthralgias and Denies joint swelling Skin/Breast Denies rash Neuro Denies Sensory deficit (Neuro) Psych Reports as per HPI Endo Denies fatigue and Denies heat intolerance Jimmy/Lymph Denies easy bruising Aller/Immun Denies seasonal rhinorrhea and Denies wheezing Physical exam (Primary Care) Vital Signs: Last Vital Signs Pulse 92 02/14/24 12:57 BP 110/76 02/14/24 12:57 Pulse Ox 98 02/14/24 12:57 Oxygen Delivery Method Room Air 02/14/24 12:57 BMI result Body Mass Index 33.1 Tobacco/Smoking Status: Tobacco use Status Tobacco use date assessed 02/14/24 02/14/24 13:03 Patient Tobacco Use Status Current everyday Tobacco 02/14/24 12:54 e-Cigarette/Vaping Use Never Used 02/14/24 12:54 Are you ready to quit: No Thrive Assessment: Date of Thrive Assessment Date Thrive assessed 09/14/23 02/14/24 12:54 Currently or been in a relationship where the following occur: I choose not to answer Const Other: Field Sales Executive present General: comfortable and no acute distress Orientation/consciousness: patient oriented x3 HENMT Head: Yes normocephalic General nose exam: Normal external nose present Face and sinus: Yes face symmetric Mouth: Normal oral and palatal mucosa present and moist mucous membranes Teeth and gingiva: poor dentition Eyes General: appearance normal, both eyes and all related structures Neck Neck: Yes full ROM, Yes no lymphadenopathy and Yes supple Resp Effort & Inspection: normal respiratory effort and able to speak in complete sentences Auscultation: clear to auscultation bilaterally Cardio Rate: regular rate Rhythm: regular rhythm Heart sounds: S1 normal heart sound present and S2 normal heart sound present GI Inspection: Yes obesity Palpation (GI): Soft to palpation, nontender, no guarding and no masses General: Yes no CVA tenderness Back/Spine/Pelvis Back: no CVA tenderness and No back tenderness Skin General skin exam: dry skin Neuro General: patient oriented x3, gait normal, moves all extremities, Normal light touch and pain sensation, no focal motor deficits and CN's II-XI intact bilaterally Gait exam (Neuro): Normal gait present Sensory Exam: No Sensory deficit (Neuro) Extrem Other: Thickened and toenails bilaterally, peripheral pulses full and equal, no pedal edema noted, plantar calluses bilateral General: Yes full ROM, Yes no joint enlargement, Yes no pedal edema and Yes normal gait Results Reviewed Results Reviewed: Laboratory Tests 01/29/23 09/08/23 12/29/23 08:11 09:34 14:51 Estimat Average Glucose 189 Hemoglobin A1c % 10.0 H 9.1 H 8.2 H Name: Matty Mcgee Age/Sex: 43/M : 1980 Unit#: [id number] Attend Dr: Beverly Baez APRN Re12/29/23 Status: DEP REF Location: [facility] Disch: SPEC : [id number] KESHAWN: 12/29/23 STATUS: COMP REQ : [id number] RECD: 12/29/23 [facility] [address]: Rowena Cedeno MD COMP: 12/29/23 ENTERED: 12/29/23 [facility] DR: Beverly Baez APRN ORDERED: Met Prof Fast, AST, ALT, Lipid Panel Test Result Flag Reference Sodium 137 135-145 mmol/L Potassium 5.1 3.3-5.1 mmol/L CL 106 96-108 mmol/L CO2 22 22-29 mmol/L Gap 14 12-20 BUN 27 H 9-16 mg/dL Creat 2.34 H 0.5-1.4 mg/dL EGFR 30 NOTE: For -[place]vad[place] individuals, multiply the result by 1.210. Chronic Kidney Disease: Estimated GFR < 60 mL/min/1.73m2 Severe Kidney Disease: Estimated GFR < 15 mL/min/1.73m2 FBS 368 *H 60-99 mg/dL Critical value for test(s): FBS Results called to and read back by: DR. REX CHOUDHARY Person calling: NGUYENQ Date: 12/29/23 Time:1703 A fasting glucose of 126 mg/dl or greater on more than one occasion is considered diagnostic of diabetes. CA 9.7 8.4-10.2 mg/dL AST (GOT) 17 5-37 U/L ALT (GPT) 33 0-40 U/L Triglyceride 458 H <150 mg/dL Desirable Triglyceride: less than 150 mg/dL Borderline High Triglyceride 150-199 mg/dL High Triglyceride: 200-499 mg/dL Very High Triglyceride: greater than or equal to 5OO mg/dL Cholesterol 140 <200 mg/dL Desirable Cholesterol: less than 200 mg/dL Borderline High Cholesterol: 200-239 mg/dL High Cholesterol: greater than 239 mg/dL LDL Calculated Test not performed <100 mg/dL Unable to calculate the LDL. The formula of Friedwald, Harrington, and Emanuel is only valid if the triglycerides are less than 400 mg/dl. HDL 25 L >40 mg/dL Desirable HDL: greater than 40 mg/dL Note: This HDL assay may give artificially low results in patients with liver disease. Coding Level of Care Code Est Pt Level 4 (62613) Complex EM visit Add On G2211 Diagnoses CKD (chronic kidney disease) stage 3, GFR 30-59 ml/min N18.30 Type 2 diabetes mellitus with diabetic polyneuropathy E11.42 Mixed dyslipidemia E78.2 Smoker unmotivated to quit F17.200 Assessment & Plan Assessment & Plan (1) CKD (chronic kidney disease) stage 3, GFR 30-59 ml/min: Code(s): N18.30 - Chronic kidney disease, stage 3 unspecified Category: Medical (2) Type 2 diabetes mellitus with diabetic polyneuropathy: Comment: Followed by Podiatry, Dr. Gonzalez Code(s): E11.42 - Type 2 diabetes mellitus with diabetic polyneuropathy Category: Medical (3) Mixed dyslipidemia: Code(s): E78.2 - Mixed hyperlipidemia Category: Medical (4) Smoker unmotivated to quit: Code(s): F17.200 - Nicotine dependence, unspecified, uncomplicated Category: Social Hx Plan Continue with present treatment, improvement in diabetes control noted now with hemoglobin A1c down to 8.2%. Up-to-date with his diabetes retinopathy screening and diabetes foot exam. Patient unmotivated to quit smoking Blood pressure within normal limits Latest fasting lipids showed elevated triglycerides, with total cholesterol less than 100 mg/dL, will continue on fenofibrate and reinforced again importance of better diabetes control. Up-to-date with his Tdap and pneumococcal vaccination but does not want to get COVID booster or flu vaccine
[2024-02-14 12:57] VITALS: BP 110/76; PULSE 92; O2SAT 98; BMI 33.1
== END 2024-02-14 13:44 | disposition home or self-care (01) ==
PROVIDERS: PCP Internal Medicine; Visit Provider Internal Medicine
DX: N18.30 Chronic kidney disease, stage 3 unspecified (principal); E11.42 Type 2 diabetes mellitus with diabetic polyneuropathy; E78.2 Mixed hyperlipidemia; F17.200 Nicotine dependence, unspecified, uncomplicated

== ENCOUNTER → 2024-02-14 12:46 | Outpatient (BNVA) | payer MEDICARE, MEDICAID, SELFPAY | PROVIDERS: PCP Internal Medicine; Visit Provider Internal Medicine | DX: E78.2 Mixed hyperlipidemia (principal); E66.9 Obesity, unspecified; I12.9 Hypertensive chronic kidney disease with stage 1 through stage 4 chronic kidney disease, or unspecified chronic kidney disease; E11.42 Type 2 diabetes mellitus with diabetic polyneuropathy; E11.22 Type 2 diabetes mellitus with diabetic chronic kidney disease; N18.30 Chronic kidney disease, stage 3 unspecified; F17.200 Nicotine dependence, unspecified, uncomplicated | CPT/HCPCS: 99212 ==

== ENCOUNTER 2024-02-15 13:40 | Outpatient (AMB) | payer MEDICARE, MEDICAID, SELFPAY ==
[2024-02-15 13:43] VITALS: BP 122/84; PULSE 101; O2SAT 96; BMI 33.2
--- NOTE | 2024-02-15 13:43 | A.OFFVIS_ITS ---
Vital Signs 02/15/24 13:43 Height 5 ft 8 in Weight 218 lb 4.122 oz BMI 33.2 BP 122/84 Blood Pressure Location Rt brachial Position Sitting Pulse 101 H Pulse Source Doppler Pulse Oximetry (%) 96 Oxygen Delivery Method Room Air Intake Visit Reasons: emphysema Allergies No Known Allergies Allergy (Verified 02/14/24 13:16) HPI HPI emphysema: Details: 43-year-old gentleman, active 40+ pack-year smoker with underlying schizophrenia followed for emphysema, environmental allergies, and bilateral pulmonary nodule.?Patient continues on Anoro, albuterol MDI, and Flonase with reasonable control of his symptoms. He denies any recent exacerbations. His CT chest shows slowly increasing pulmonary nodules, but his PET scan in August 22 showed no FDG avidity. [facility] Medical History (Updated 02/14/24 @ 13:45 by Rowena Cedeno MD) CKD (chronic kidney disease) stage 3, GFR 30-59 ml/min Tinea unguium Type 2 diabetes mellitus with diabetic polyneuropathy CKD (chronic kidney disease) stage 4, GFR 15-29 ml/min Type 2 diabetes mellitus with complication, with long-term current use of insulin Uncontrolled diabetes mellitus with hyperglycemia Hypercalcemia Noncompliance with medication regimen Rash and nonspecific skin eruption Tremor Vitamin D deficiency Mixed dyslipidemia Restrictive airway disease Type 2 diabetes mellitus with other diabetic kidney complication Solitary pulmonary nodule on lung CT Smoker unmotivated to quit Obesity (BMI 30-39.9) Schizoaffective disorder Essential hypertension Surgical History No pertinent past surgical history Family History Father Unknown family medical history Mother Unknown family medical history Brother No problems noted. Sister No problems noted. Social History Housing: Other Housing Other:: halfway Alcohol intake: never Patient Tobacco Use Status: Current everyday Tobacco user Cigarette Packs Per Day: 2 e-Cigarette/Vaping Use: Never Used Substance Use Type: Marijuana Advance Directives Date on File: 12/06/23 service: No Current occupational status: disabled Cognitive needs: No Hearing needs: No Vision needs: Yes Review of Systems Const Denies daytime sleepiness, Denies excessive sweating, Denies fatigue, Denies fever(s), Denies lethargy, Denies malaise, Denies night sweats, Denies snoring and Denies weight loss Eyes Denies blurry vision and Denies itchy eyes ENT Denies nasal congestion, Denies post nasal drip, Denies sinus pain, Denies sinus pressure and Denies other ( Thrush) Card Denies chest pain, Denies pedal edema, Denies dyspnea, Denies orthopnea and Denies paroxysmal nocturnal dyspnea Resp Denies cough, Denies hemoptysis, Denies excessive phlegm production, Denies dyspnea, Denies snoring and Denies wheezing GI Denies abdominal pain and Denies heartburn Musc Denies myalgias, Denies arthralgias and Denies joint swelling Skin/Breast Denies rash Neuro Denies memory loss and Denies seizure-like activity Psych Denies abnormal sleep pattern, Denies anxiety and Denies memory loss Endo Denies excessive sweating, Denies fatigue and Denies heat intolerance Jimmy/Lymph Denies easy bruising Aller/Immun Denies itchy eyes, Denies seasonal rhinorrhea and Denies wheezing Physical Exam Vital Signs: Last Vital Signs Pulse 101 H 02/15/24 13:43 BP 122/84 02/15/24 13:43 Pulse Ox 96 02/15/24 13:43 Oxygen Delivery Method Room Air 02/15/24 13:43 BMI result Body Mass Index 33.2 Const General: no acute distress and alert Nutritional Appearance: not obese Orientation/consciousness: Other orientation findings ( oriented) HEENT Head: Yes atraumatic Eyes General: appearance normal, both eyes and all related structures Sclerae: sclerae normal EOM: EOMs intact bilaterally Neck Neck: Yes supple Lymphatic: no lymphadenopathy noted Resp Effort & Inspection: normal respiratory effort and no use of accessory muscles Auscultation: clear to auscultation bilaterally Cardio Rate: regular rate Rhythm: regular rhythm Heart sounds: no gallops, no murmurs and no rubs Skin General skin exam: other ( warm) Extrem General: No clubbing, No cyanosis and No edema Assessment & Plan Assessment & Plan (1) Emphysema of lung: Code(s): J43.9 - Emphysema, unspecified Category: Medical Plan: Controlled on current regimen of Anoro and albuterol MDI. Continue current regimen. (2) Pulmonary nodules: Code(s): R91.8 - Other nonspecific abnormal finding of lung field Category: Medical Plan: Previously slowly enlarging nodules noted on CT chest. PET-CT from July of 2023 with no evidence of FDG activity. Will continue to monitor with CT scan, next in July of 2024, ordered. (3) Environmental allergies: Code(s): Z91.09 - Other allergy status, other than to drugs and biological substances Category: Medical Plan: Well controlled on as needed Flonase. Continue current regimen. Orders: Orders CT chest wo IV con 07/30/24 R91.8 - Other nonspecific abnormal finding of lung field Coding Level of Care Code Est Pt Level 4 (36872) Complex EM visit Add On G2211 Diagnoses Emphysema of lung J43.9 Pulmonary nodules R91.8 Environmental allergies Z91.09
--- OUTSIDE RECORDS SUMMARY | 2024-02-15 13:44 | XMS_ITS ---
Author Organization [facility] Address [address] [place] [address] Care Team Providers Care Floor Installation Mechanic Name Role Phone Pao ZHANG, Rowena Garrido Primary Care Provider Un available Carlos Matilda Unavailable [phone] Encounters Encounter Location Date Provider Diagnosis [address] [address] 12/16/2023 Matilda Gonzalez Plan Of Treatment Next Appt Details Provider Name:Matilda Gonzalez , 05/01/2024 01:30:00 PM, [address] [place] [address], [phone], Progress Notes * Matty MCGEEDOB:[birth year] (43 yo M)Acc No.[id number]:12/16/2023 Progress Note Patient:?VARGAS Ludwig o Provider:?Matilda Gonzalez DPM :1980???Age:43 Y???Sex:Male Christo e:12/16/2023 [facility] [id number] Pcp:Antonella Swan Subjective: * Chief Complaints: * ??? * Medical History:? Objective: * Vitals:? Assessment: Plan: * Treatment: * Images: * The named appointment provid er may or may not be the originator of this progress note, and it is not deemed complete until electronically signed by the appointment provider. Sign off status: Pending * Provider:Diogenes Gonzalez DPM Date:?2023 Generated for Rukhsana melton/Sylvia/Hans on:?2024 01:43 PM EST
--- OUTSIDE RECORDS SUMMARY | 2024-02-15 13:44 | XMS_ITS ---
Author Organization [facility]iatry [facility] Address [address] [facility] [place] [address] Care Team Providers Care Boat Joiner Helper Name Role Phone Pao ZHANG, Rowena Garrido Primary Care Provider Un available Black, Matilda Unavailable [phone] Allergies No Known Allergies REASON FOR VISIT [...] e a day for 30 day(s) Not-Taking Coarsegold Carbonate 600 MG as directed Ora lly [...] HCl 25 MG as directed Orally Active Afton 3 Active Omeprazole 20 MG 1 capsule [...] Ordered Date Performed Result Body Sit e 32255-MZQORMF NAIL, 6 OR MORE 01/24/2024 N/A 89546-Xjifwsdk Plate 01/24/2024 N/A 27634-SDMG SKIN LESIONS, OVER 4 01/24/2024 N/A Encounters Encounter Location Date Provider Diagnosis [facility] [place] [address] [place] [address] 01/24/2024 Matilda Black Type 1 diabetes mellitus [...] Treatment Pending Test Test Name Order Date 99367-WWUWYZH NAIL, 6 OR MORE 01/24/2024 01209-Mxzqedqp Plate 01/24/2024 21430-QBJN SKIN LESIONS, OVER 4 01/24/20 24 Next Appt Details Follow Up: prn, Reason: Provider Name:Matilda Gonzalez , 05/01/2024 01:30:00 PM, [address] [place] [address], [phone], Procedure Notes * Category Sub-Category Detail Notes [...] Motrin was recommended for pain or discomfort (26146), DIABETES: Matricectomy deferred at this time due [...] use of a nail nipper and/or dremel-type grinder set up operator centerless, to a more viable healthy nail plate [...] to maintain effectiveness in symptomatic relief - 31246 Keratoma Treatment Parring or Cutting o f Benign Hyperkeratotic Lesion(s) (-57) More than 4 Lesions - The Benign hyperkeratotic lesions, ( 5 ) in total, locations as stated and described in exam, were pared, and/or cut utilizing a sterile 15 blade, tissue nippers, and/or power dremel instrumentation - 13094 Progress Notes * Matty MCGEEDOB:[birth year] (43 yo M)Acc No.[id number]:01/24/2024 Progress Note Patient:?Ludwig MCGEE Provider:?Matilda Gonzalez DPM :1980???Age:43 Y???Sex:Male Christo e:01/24/2024 Address:[address] [place], [place] [id number] Pcp:Antonella Swan Subjective: * Chief Complaints: * [...] * Hospitalization/Major Diagno stic Procedure:?[place] [place] [facility] [place] * Family History:?Mother: dece ased.?Father: alive, [...] morning meal Orally Once a day Trulicity Afton 3 hydrOXYzine HCl 25 MG Tablet as [...] Orally Once a day Taking Trulicity Taking Afton 3 Taking hydrOXYzine HCl 25 MG Tablet [...] UNIT/ML Suspension as directed Subcutaneous Fish Oil Coarsegold Carbonate 600 MG Capsule as directed Orally [...] as directed Subcutaneous Not-Taking/PRN Fish Oil Not-Taking/PRN Coarsegold Carbonate 600 MG Capsule as directed Orally [...] - L60.0??? Plan: * Treatment: 2.?Tinea unguium?Procedure: 89424-AOOQWCW NAIL, 6 OR MORE 3.?Ingrown nail?Procedure: 18892-Qqxvhlzz Plate * Procedures:?Debride Nail 6-10:?Nail debridement?Performance of this nail treatment by a nonprofessional would put this patients foot and overall health at risk. Therefore, debridement to affected nail(s), as described in exam, was performed extensively to reduce/remove overall nail length, girth, thickness, subungual debris, and necrotic tissue, by manual and/or electrical means through the use of a nail nipper and/or dremel-type grinder set up operator centerless, to a more viable healthy nail plate [...] to maintain effectiveness in symptomatic relief - 53525.?Keratoma Treatment:?Parring or Cutting of Benign Hyperkeratotic Lesion(s)?(-57) More than 4 Lesions - The Benign hyperkeratotic lesions, ( 5 ) in total, locations as stated and described in exam, were pared, and/or cut utilizing a sterile 15 blade, tissue nippers, and/or power dremel instrumentation - 05804.?Nail Avulsion:?Location?, Lateral nail border, TA.?Anesthesia?, was deferred [...] Motrin was recommended for pain or discomfort (28247), DIABETES: Matricectomy deferred at this time due to diabetes risk.? * Procedure Codes:?65043 DEBRI DE NAIL, 6 OR MORE, Modifiers: XS 43894 Avulsion [place], [place]: [place] [address] TRIM SKIN LESIONS, OVER 4, Modifiers: XS * Follow Up:?prn * Images: * Sign off status: Completed true * Provider:?Matilda Gonzalez DPM Date:?2023 Generated for Rukhsana melton/Sylvia/Hans on:?2024 01:43 PM EST History and Physical Notes * [...]
--- OUTSIDE RECORDS SUMMARY | 2024-02-15 13:44 | XMS_ITS | Patient Health Record ---
[facility] Address [address] [facility] [place] [address] Care Team Providers Care Loader Demolder Name Role Phone Pao ZHANG, Rowena Garrido Primary Care Provider Un available Black, Matilda Unavailable [phone] Allergies No Known Allergies Reason For Referral [...] MG as directed Orally Active Vascepa Not-Taking [place] 3 Active Benadryl Not-Taking Losartan Potassium 25 [...] tablet Orall y Once a day Active [place] Carbonate 600 MG as directed Ora lly [...] Administration Date Status Comme nts COVID-19 Pfizer BioNTBellco Vaccine Unknown 12/25/2020 Administered First Dose: 04/01/20 [...] Problem Acquired hammer toe of right foot (8403692715992544 ) Other hammer toe(s) (acquired), right foot (M20.41) Active confirmed Problem Acquired hammer toe of left foot (3418006709338057 ) Other hammer toe(s) (acquired), left foot (M20.42) Active confirmed Problem Localized, primary osteoarthritis of the ankle and/or foot (757174655) Primary osteoarthritis, right ankle and foot (M19.071) Active confirmed Problem Polyneuropathy due to diabetes mellitus type I (057181045) Type 1 diabetes mellitus with diabetic polyneuropathy (E10.42) Active confirmed Vital Signs Height 5ft 8in in 01/24/2024 Weight 220 lbs 01/24/2024 BMI 33.45 kg/m2 01/24/2024 Procedures Procedure Date Ordered Date Performed Result Body Sit e 68779-ZLVHCVY NAIL, 6 OR MORE 05/20/2023 N/A 67566-WTER SKIN LESIONS, OVER 4 05/20/2023 N/A 81281-LFTSMIO NAIL, 6 OR MORE 09/16/2023 N/A 26098-YPMU SKIN LESIONS, OVER 4 09/16/2023 N/A 09993-MWHEANB NAIL, 6 OR MORE 01/24/2024 N/A 36427-Sihxkcno Plate 01/24/2024 N/A 87330-USHW SKIN LESIONS, OVER 4 01/24/2024 N/A Encounters Encounter Location Date Provider Diagnosis [address] [address] 05/20/2023 Matilda Black Type 1 diabetes mellitus with diabetic polyneuropathy E10.42 and Tinea unguium B35.[address] [address] 09/16/2023 Matilda Black Type 1 diabetes mellitus with diabetic polyneuropathy E10.42 and Tinea unguium B35.[address] [address] 01/24/2024 Matilda Black Type 1 diabetes mellitus with diabetic polyneuropathy E10.42 ; Tinea unguium B35.1 and Ingrown nail L60.[address] [address] 09/16/2023 Matilda Black [address] [address] 10/21/2023 Matilda Black Assessments Encounter Date Diagnosis [...] Treatment Pending Test Test Name Order Date 35476-AGTDDVZ NAIL, 6 OR MORE 01/07/2012 17624-PHHMUSW NAIL, 6 OR MORE 04/11/2012 44079-OFHPRLP NAIL, 6 OR MORE 07/11/2012 98112-SUVNNGL NAIL, 6 OR MORE 10/03/2012 56676-OKOYUEV NAIL, 6 OR MORE 12/19/2012 77362-BDLGDWD NAIL, 6 OR MORE 03/23/2013 35141-BTOBHFC NAIL, 6 OR MORE 06/21/2013 83907-ZDXOIOW NAIL, 6 OR MORE 09/20/2013 08397-AIJTMCH NAIL, 6 OR MORE 12/07/2013 40592-EHIDPLK NAIL, 6 OR MORE 03/14/2014 97610-NEKVTHS NAIL, 6 OR MORE 06/20/2014 57706-OAOHGVG NAIL, 6 OR MORE 08/23/2014 63187-VGRWCLE NAIL, 6 OR MORE 11/22/2014 66620-LXMWRVD NAIL, 6 OR MORE 02/13/2015 35644-VDTJNYA NAIL, 6 OR MORE 05/15/2015 63362-RJODMRP NAIL, 6 OR MORE 08/12/2015 91293-MOTVUBB NAIL, 6 OR MORE 11/11/2015 21889-DZHWXUE NAIL, 6 OR MORE 02/19/2016 07220-BIFVSXF NAIL, 6 OR MORE 05/21/2016 41930-WZTCEOU NAIL, 6 OR MORE 10/05/2016 40961-EXOWOMK NAIL, 6 OR MORE 01/11/2017 73054-XBNCVVQ NAIL, 6 OR MORE 04/12/2017 95465-RDPMWSM NAIL, 6 OR MORE 09/16/2017 79711-MKVQUHT NAIL, 6 OR MORE 12/16/2017 95669-ZYQMCZX NAIL, 6 OR MORE 03/17/2018 80246-OFVIWRD NAIL, 6 OR MORE 07/14/2018 08689-YHQGETL NAIL, 6 OR MORE 01/16/2019 15332-TQYPVET NAIL, 6 OR MORE 08/17/2019 41235-KRFZLPL NAIL, 6 OR MORE 11/20/2019 11483-LCGPAWP NAIL, 6 OR MORE 03/07/2020 26760-UXTNTDF NAIL, 6 OR MORE 06/06/2020 07035-FADPMLF NAIL, 6 OR MORE 09/12/2020 89516-OBVPPJI NAIL, 6 OR MORE 12/26/2020 12809-RYDAGOT NAIL, 6 OR MORE 04/07/2021 87022-ZYGYSJE NAIL, 6 OR MORE 07/07/2021 46594-GFVPOBH NAIL, 6 OR MORE 10/13/2021 11093-WKXFQNT NAIL, 6 OR MORE 01/12/2022 99853-FOVCWFK NAIL, 6 OR MORE 06/04/2022 89985-ZSUHSAD NAIL, 6 OR MORE 08/24/2022 86321-PZNAAEF NAIL, 6 OR MORE 11/19/2022 75411-JKDRZDI NAIL, 6 OR MORE 02/08/2023 90976-AHXMBVJ NAIL, 6 OR MORE 05/20/2023 55744-BPZWHRI NAIL, 6 OR MORE 09/16/2023 80993-UYWCNHH NAIL, 6 OR MORE 01/24/2024 27031-Drbpdumf Plate 01/24/2024 17696-Dwjhtwol Plate 08/24/2022 71376-Lmbcqfch Plate 10/13/2021 45799-Cnrbueux Plate 07/07/2021 47382-Npmgsicf Plate 11/22/2014 56540-Gbbsohrz Plate 08/23/2014 09547-Ufrhrtua Plate 06/20/2014 92415-Xpcepzai Plate 03/14/2014 92845-Uuupnrwk Plate 12/07/2013 14429-Iubtmmpr Plate 09/20/2013 27872-Kqcwketl Plate 06/21/2013 39665-Thzjbvxj Plate Each Additional 34126-Ppjfuqhp Plate Each Additional 10/2021 66739, J0702- INJECT or DRAIN, JOINT/BUR SA 06/06/2020 08156-DNMY SKIN LESIONS, OVER 4 07/08/19 21901-VMNE SKIN LESIONS, OVER 4 04/07/19 84077-LNDP SKIN LESIONS, OVER 4 12/27/19 21 81603-RRQD SKIN LESIONS, OVER 4 10/14/19 52191-RHKT SKIN LESIONS, OVER 4 01/13/20 85411-NQAW SKIN LESIONS, OVER 4 08/25/19 23 36784-ITAX SKIN LESIONS, OVER 4 06/05/19 10414-YPBK SKIN LESIONS, OVER 4 09/16/19 72792-IEOY SKIN LESIONS, OVER 4 05/20/19 45072-XJYP SKIN LESIONS, OVER 4 02/09/20 72172-NQYH SKIN LESIONS, OVER 4 11/20/19 00438-LSGN SKIN LESIONS, OVER 4 01/24/20 78341-QUYI SKIN LESIONS, 2 TO 4 06/07/19 21 62438-UHYM SKIN LESIONS, 2 TO 4 09/13/19 21 28060-UXRH SKIN LESIONS, 2 TO 4 03/07/19 21 20374-JQSN SKIN LESIONS, 2 TO 4 11/20/19 20 07057-HEYF SKIN LESIONS, 2 TO 4 08/17/19 20 19154-YKLN SKIN LESIONS, 2 TO 4 01/17/20 19 12896-ATNP SKIN LESIONS, 2 TO 4 07/15/19 19 18722-VEYP SKIN LESIONS, 2 TO 4 03/17/19 19 67684-LBAK SKIN LESIONS, 2 TO 4 12/17/19 18 94917-VUJU SKIN LESIONS, 2 TO 4 09/17/19 18 87191-GZIP SKIN LESIONS, 2 TO 4 01/12/20 17 55721-UOFI SKIN LESIONS, 2 TO 4 04/12/19 18 69242-IBFS SKIN LESIONS, 2 TO 4 06/22/19 14 01479-GCIF SKIN LESIONS, 2 TO 4 09/21/19 14 19901-CKLI SKIN LESIONS, 2 TO 4 12/08/19 14 36655-HUIK SKIN LESIONS, 2 TO 4 03/23/19 14 88340-WPVS SKIN LESIONS, 2 TO 4 10/04/19 13 67707-HOYF SKIN LESIONS, 2 TO 4 07/12/19 13 12155-NWMK SKIN LESIONS, 2 TO 4 03/14/19 15 81218-JTCN SKIN LESIONS, 2 TO 4 06/21/19 15 28156-NXIR SKIN LESION 05/21/2016 75278-XFNW SKIN LESION 10/05/2016 Next Appt Details Provider Name:Matilda Gonzalez , 05/01/2024 01:30:00 PM, [address] [place], [address], Insurance Providers Payer Name Payer Address Payer Phone Subscriber Number Group Number Insured Name Patient Relationship to Insured Coverage Start Date Coverage End Date Medicare National Govt Sv[employer] [address] [place] [address] [id number] Matty Mejia Self - patient is the insured Medical (General) History Medical History History ICD Code anxiety depression diabetic headaches/migraines high blood pressure psychiatric disorder reflux chicken pox Surgical History Surgery Date(Month/Year) Hospitalization History Reason Date(Month/Year) bad hip [facility] [place]/2023 [facility] [place]- pt cant remember overnight sleep study 12/2014
--- OUTSIDE RECORDS SUMMARY | 2024-02-15 13:44 | XMS_ITS ---
Author Organization [facility] Address [address] [place] [address] Care Team Providers Care Passport Support Associate Name Role Phone Pao ZHANG, Rowena Garrido Primary Care Provider Un available Carlos Matilda Unavailable [phone] Encounters Encounter Location Date Provider Diagnosis [address] [address] 12/27/2023 Matilda Gonzalez Plan Of Treatment Next Appt Details Provider Name:Matilda Gonzalez , 05/01/2024 01:30:00 PM, [address] [place] [address], [address], Progress Notes * Matty MCGEEDOB:[birth year] (43 yo M)Acc No.[id number]:12/27/2023 Progress Note Patient:?VARGAS Ludwig o Provider:?Matilda Gonzalez DPM :1980???Age:43 Y???Sex:Male Christo e:12/27/2023 Address: [address], [place] Pcp:Antonella Swan Subjective: * Chief Complaints: * [...]
== END 2024-02-15 14:12 | disposition home or self-care (01) ==
PROVIDERS: PCP Internal Medicine; Visit Provider Internal Medicine Pulmonary Disease
DX: J43.9 Emphysema, unspecified (principal); R91.8 Other nonspecific abnormal finding of lung field; Z91.09 Other allergy status, other than to drugs and biological substances
CPT/HCPCS: 99214; G2211

== ENCOUNTER → 2024-02-15 13:40 | Outpatient (BNVA) | payer MEDICARE, MEDICAID, SELFPAY | PROVIDERS: PCP Internal Medicine; Visit Provider Internal Medicine Pulmonary Disease | DX: J43.9 Emphysema, unspecified (principal); Z91.09 Other allergy status, other than to drugs and biological substances; R91.8 Other nonspecific abnormal finding of lung field | CPT/HCPCS: 99212 ==

== ENCOUNTER 2024-03-02 13:10 | Outpatient (REF) | payer MEDICARE, MEDICAID, SELFPAY ==
[2024-03-02 13:23] LABS: MANUAL DIFF FLAG NO
[2024-03-02 14:11] LABS: Basophils Percent Auto 0.1 % (0-2); Hematocrit 45.7 % (42.0-52.0); Hemoglobin 15.5 g/dl (14.0-18.0); Imm Gran Abs Auto 0.04 X10*3/uL (0.00-0.03); Imm Gran Pct Auto 0.4 % (0.0-0.4); Lymphocytes Absolute Auto 2.9 X10*3/uL (1.2-4.9); Lymphocytes Percent Auto 31.6 % (20-40); Mean Corpuscular HGB Conc 33.9 g/dl (31.0-36.0); Mean Corpuscular Hemoglobin 28.2 pg (27.0-33.0); Mean Corpuscular Volume 83.1 fL (80.0-98.0); Mean Platelet Volume 10.1 fL (9.4-12.4); Monocytes Absolute Auto 0.7 X10*3/uL (0.1-1.2); Monocytes Percent Auto 7.1 % (2-11); Neutrophils Absolute Auto 5.7 x10*3/uL (2.0-8.3); Neutrophils Percent Auto 60.8 % (45-73); Platelet Count 222 X10*3/uL (160-400); Red Cell Distribution Width 14.5 % (11.0-16.0); White Blood Count 9.3 X10*3/uL (4.8-10.8)
--- OUTSIDE RECORDS SUMMARY | 2024-03-02 14:17 | XMS_ITS | Patient Health Record ---
Author Organization [facility] Address [address] [facility] [place] [address] Care Team Providers Care Prospecting Driller Helper Name Role Phone Pao ZHANG, Rowena Garrido Primary Care Provider Un available Black, Matilda Unavailable [phone] Allergies No Known Allergies Reason For Referral [...] MG as directed Orally Active Vascepa Not-Taking [place] 3 Active Benadryl Not-Taking Losartan Potassium 25 [...] tablet Orall y Once a day Active [place] Carbonate 600 MG as directed Ora lly [...] Administration Date Status Comme nts COVID-19 Pfizer BioNTCLASEMOVIL Vaccine Unknown 12/25/2020 Administered First Dose: 04/01/20 [...] Problem Acquired hammer toe of right foot (1868236207155363 ) Other hammer toe(s) (acquired), right foot (M20.41) Active confirmed Problem Acquired hammer toe of left foot (7400321067927513 ) Other hammer toe(s) (acquired), left foot (M20.42) Active confirmed Problem Localized, primary osteoarthritis of the ankle and/or foot (146908419) Primary osteoarthritis, right ankle and foot (M19.071) Active confirmed Problem Polyneuropathy due to diabetes mellitus type I (869239586) Type 1 diabetes mellitus with diabetic polyneuropathy (E10.42) Active confirmed Vital Signs Height 5ft 8in in 01/24/2024 Weight 220 lbs 01/24/2024 BMI 33.45 kg/m2 01/24/2024 Procedures Procedure Date Ordered Date Performed Result Body Sit e 02277-QAGWJDS NAIL, 6 OR MORE 05/20/2023 N/A 64516-PAMM SKIN LESIONS, OVER 4 05/20/2023 N/A 48714-RAJJOIG NAIL, 6 OR MORE 09/16/2023 N/A 31904-XEUR SKIN LESIONS, OVER 4 09/16/2023 N/A 68384-TSREJFX NAIL, 6 OR MORE 01/24/2024 N/A 61644-Ehdoyyph Plate 01/24/2024 N/A 88569-MFUV SKIN LESIONS, OVER 4 01/24/2024 N/A Encounters Encounter Location Date Provider Diagnosis [address] [address] 05/20/2023 Matilda Black Type 1 diabetes mellitus with diabetic polyneuropathy E10.42 and Tinea unguium B35.[address] [address] 09/16/2023 Matilda Black Type 1 diabetes mellitus with diabetic polyneuropathy E10.42 and Tinea unguium B35.[address] [address] 01/24/2024 Matilda Black Type 1 diabetes mellitus with diabetic polyneuropathy E10.42 ; Tinea unguium B35.1 and Ingrown nail L60.[address] [address] 09/16/2023 Matlida Black [address] [address] 10/21/2023 Matilda Black Assessments Encounter Date Diagnosis [...] Treatment Pending Test Test Name Order Date 32036-TDILWDM NAIL, 6 OR MORE 01/07/2012 27102-MQAKNTA NAIL, 6 OR MORE 04/11/2012 98041-FNZKRDI NAIL, 6 OR MORE 07/11/2012 53464-KSEHTYC NAIL, 6 OR MORE 10/03/2012 39420-QAGSJVU NAIL, 6 OR MORE 12/19/2012 81215-PQQZTGJ NAIL, 6 OR MORE 03/23/2013 10476-YNGSZQD NAIL, 6 OR MORE 06/21/2013 71114-NESRUTQ NAIL, 6 OR MORE 09/20/2013 66106-GMPQVXS NAIL, 6 OR MORE 12/07/2013 02696-QSKGKHN NAIL, 6 OR MORE 03/14/2014 42714-TSKDYTW NAIL, 6 OR MORE 06/20/2014 84102-EZYDOEY NAIL, 6 OR MORE 08/23/2014 79736-UGMLDVS NAIL, 6 OR MORE 11/22/2014 14126-WAAAZJV NAIL, 6 OR MORE 02/13/2015 28447-QFNOLKI NAIL, 6 OR MORE 05/15/2015 55860-GEAHLWY NAIL, 6 OR MORE 08/12/2015 04980-NNAOWDQ NAIL, 6 OR MORE 11/11/2015 65511-DPQLGZM NAIL, 6 OR MORE 02/19/2016 77341-YCRMMGZ NAIL, 6 OR MORE 05/21/2016 88563-XGNBUUV NAIL, 6 OR MORE 10/05/2016 24663-XFCZUCC NAIL, 6 OR MORE 01/11/2017 13113-EZWYVYA NAIL, 6 OR MORE 04/12/2017 07913-KIHUKFW NAIL, 6 OR MORE 09/16/2017 31313-XSVYBJM NAIL, 6 OR MORE 12/16/2017 27263-TJTTFPZ NAIL, 6 OR MORE 03/17/2018 93016-OWESYCC NAIL, 6 OR MORE 07/14/2018 71002-OCPWZAH NAIL, 6 OR MORE 01/16/2019 00174-DBRQQVO NAIL, 6 OR MORE 08/17/2019 71802-RJAVTHZ NAIL, 6 OR MORE 11/20/2019 68234-FGMQYXP NAIL, 6 OR MORE 03/07/2020 02194-LTLVJDQ NAIL, 6 OR MORE 06/06/2020 19790-NTAGFCW NAIL, 6 OR MORE 09/12/2020 45093-UWRLJHL NAIL, 6 OR MORE 12/26/2020 87649-DARUMXV NAIL, 6 OR MORE 04/07/2021 77902-IKLRWIC NAIL, 6 OR MORE 07/07/2021 10300-ZFZBIWW NAIL, 6 OR MORE 10/13/2021 55223-VKOXAVM NAIL, 6 OR MORE 01/12/2022 98181-KEYDKVB NAIL, 6 OR MORE 06/04/2022 77675-MJSYSGD NAIL, 6 OR MORE 08/24/2022 80591-GMUJKSA NAIL, 6 OR MORE 11/19/2022 42307-YRNKCAE NAIL, 6 OR MORE 02/08/2023 10820-YNBJMDC NAIL, 6 OR MORE 05/20/2023 96484-BGWBJHB NAIL, 6 OR MORE 09/16/2023 45922-HFHKEZS NAIL, 6 OR MORE 01/24/2024 94111-Qcwlfkmd Plate 01/24/2024 40422-Apwgsljm Plate 08/24/2022 84401-Lpwxnzsq Plate 10/13/2021 71461-Yjfdeoxf Plate 07/07/2021 98615-Lgovtuqd Plate 11/22/2014 06021-Rqrplcao Plate 08/23/2014 82498-Stdzjsbb Plate 06/20/2014 23259-Nduyuebz Plate 03/14/2014 60628-Femkponz Plate 12/07/2013 88736-Pdevebuw Plate 09/20/2013 11188-Jrjfuedj Plate 06/21/2013 62759-Yajjfech Plate Each Additional 88576-Fhmmyyww Plate Each Additional 10/2021 51039, J0702- INJECT or DRAIN, JOINT/BUR SA 06/06/2020 27206-GBSP SKIN LESIONS, OVER 4 07/08/19 00241-YPRA SKIN LESIONS, OVER 4 04/07/19 31815-IPJS SKIN LESIONS, OVER 4 12/27/19 21 41774-KBAC SKIN LESIONS, OVER 4 10/14/19 75414-RBFP SKIN LESIONS, OVER 4 01/13/20 65777-TQHV SKIN LESIONS, OVER 4 08/25/19 23 73670-PKQO SKIN LESIONS, OVER 4 06/05/19 28941-WIOH SKIN LESIONS, OVER 4 09/16/19 23871-YAHI SKIN LESIONS, OVER 4 05/20/19 02274-GVDT SKIN LESIONS, OVER 4 02/09/20 87888-MPAX SKIN LESIONS, OVER 4 11/20/19 38071-UNNT SKIN LESIONS, OVER 4 01/24/20 18565-AXGE SKIN LESIONS, 2 TO 4 06/07/19 21 56135-WAII SKIN LESIONS, 2 TO 4 09/13/19 21 55022-GWCW SKIN LESIONS, 2 TO 4 03/07/19 21 97464-BPOB SKIN LESIONS, 2 TO 4 11/20/19 20 34279-QMYH SKIN LESIONS, 2 TO 4 08/17/19 20 54485-YCVE SKIN LESIONS, 2 TO 4 01/17/20 19 91005-VNOP SKIN LESIONS, 2 TO 4 07/15/19 19 05996-HMNR SKIN LESIONS, 2 TO 4 03/17/19 19 74560-OYVD SKIN LESIONS, 2 TO 4 12/17/19 18 28533-UOOT SKIN LESIONS, 2 TO 4 09/17/19 18 68239-WAYM SKIN LESIONS, 2 TO 4 01/12/20 17 94795-AMOV SKIN LESIONS, 2 TO 4 04/12/19 18 46121-LLKQ SKIN LESIONS, 2 TO 4 06/22/19 14 19398-CABT SKIN LESIONS, 2 TO 4 09/21/19 14 16608-GBRV SKIN LESIONS, 2 TO 4 12/08/19 14 97184-XLCG SKIN LESIONS, 2 TO 4 03/23/19 14 53125-EFUM SKIN LESIONS, 2 TO 4 10/04/19 13 32477-UNHD SKIN LESIONS, 2 TO 4 07/12/19 13 46907-LMOX SKIN LESIONS, 2 TO 4 03/14/19 15 21243-YPDP SKIN LESIONS, 2 TO 4 06/21/19 15 99748-SEIQ SKIN LESION 05/21/2016 51811-VBVP SKIN LESION 10/05/2016 Next Appt Details Provider Name:Matilda Gonzalez , 05/01/2024 01:30:00 PM, [address] [place], [address], Insurance Providers Payer Name Payer Address Payer Phone Subscriber Number Group Number Insured Name Patient Relationship to Insured Coverage Start Date Coverage End Date Medicare National Govt Sv[employer] [address] [place] [address] [id number] Matty Mejia Self - patient is the insured Medical (General) History Medical History History ICD Code anxiety depression diabetic headaches/migraines high blood pressure psychiatric disorder reflux chicken pox Surgical History Surgery Date(Month/Year) Hospitalization History Reason Date(Month/Year) bad hip [facility] [place] 10/31/2023 [facility] [place] pt cant remember overnight sleep study 12/2014
--- OUTSIDE RECORDS SUMMARY | 2024-03-02 14:17 | XMS_ITS ---
Author Organization [facility] Address [address] [place] [address] Care Team Providers Care Telecom Network Manager Name Role Phone Pao ZHANG, Rowena Garrido Primary Care Provider Un available Carlos Matilda Unavailable [phone] Encounters Encounter Location Date Provider Diagnosis [address] [address] 12/16/2023 Matilda Gonzalez Plan Of Treatment Next Appt Details Provider Name:Matilda Gonzalez , 05/01/2024 01:30:00 PM, [address] [place] [address], [address], Progress Notes * Matty MCGEEDOB:[birth year] (44 yo M)Acc No.[id number]:12/16/2023 Progress Note Patient:?VARGAS Ludwig o Provider:?Matilda Gonzalez DPM :1980???Age:43 Y???Sex:Male Christo e:12/16/2023 Address: [address], [place] Pcp:Antonella Swan Subjective: * Chief Complaints: * ??? * Medical History:? Objective: * Vitals:? Assessment: Plan: * Treatment: * Images: * The named appointment provid er may or may not be the originator of this progress note, and it is not deemed complete until electronically signed by the appointment provider. Sign off status: Pending * Provider:?Matilda Gonzalez DPM Date:?2023 Generated for Rukhsana melton/Sylvia/Hans on:?03/02/2024 02:17 PM EST
--- OUTSIDE RECORDS SUMMARY | 2024-03-02 14:17 | XMS_ITS ---
Author Organization [facility] Address [address] [facility] [place] [address] Care Team Providers Care Caster Operator Name Role Phone Pao ZHANG, Rowena Garrido Primary Care Provider Un available Black, Matilda Unavailable [phone] Allergies No Known Allergies REASON FOR VISIT [...] e a day for 30 day(s) Not-Taking [place] Carbonate 600 MG as directed Ora lly [...] HCl 25 MG as directed Orally Active [place] 3 Active Omeprazole 20 MG 1 capsule [...] Ordered Date Performed Result Body Sit e 38591-QFWEZOC NAIL, 6 OR MORE 01/24/2024 N/A 60312-Tngmlcig Plate 01/24/2024 N/A 34226-GKJM SKIN LESIONS, OVER 4 01/24/2024 N/A Encounters Encounter Location Date Provider Diagnosis [facility] [address] [place] [address] 01/24/2024 Matilda Black Type 1 diabetes mellitus [...] Treatment Pending Test Test Name Order Date 38600-FBBGZTI NAIL, 6 OR MORE 01/24/2024 14959-Yygsapmv Plate 01/24/2024 85483-MMFL SKIN LESIONS, OVER 4 01/24/20 24 Next Appt Details Follow Up: prn, Reason: Provider Name:Matilda Gonzalez , 05/01/2024 01:30:00 PM, [address] [place] [address], [phone], Procedure Notes * Category Sub-Category Detail Notes [...] Motrin was recommended for pain or discomfort (01643), DIABETES: Matricectomy deferred at this time due [...] use of a nail nipper and/or dremel-type glaze grinder, to a more viable healthy nail [...] to maintain effectiveness in symptomatic relief - 33880 Keratoma Treatment Parring or Cutting o f Benign Hyperkeratotic Lesion(s) (-57) More than 4 Lesions - The Benign hyperkeratotic lesions, ( 5 ) in total, locations as stated and described in exam, were pared, and/or cut utilizing a sterile 15 blade, tissue nippers, and/or power dremel instrumentation - 00181 Progress Notes * Matty MCGEEDOB:[birth year] (43 yo M)Acc No.[id number]:01/24/2024 Progress Note Patient:?Ludwig MCGEE Provider:?Matilda Gonzalez DPM :1980???Age:43 Y???Sex:Male Christo e:01/24/2024 Address:[address] [place], [place] [id number] Pcp:Antonella Swan Subjective: * Chief Complaints: * [...] * Hospitalization/Major Diagno stic Procedure:[place] [place] [facility] [place] * Family History:?Mother: dece ased.?Father: alive, [...] morning meal Orally Once a day Trulicity [place] 3 hydrOXYzine HCl 25 MG Tablet as [...] Orally Once a day Taking Trulicity Taking [place] 3 Taking hydrOXYzine HCl 25 MG Tablet [...] UNIT/ML Suspension as directed Subcutaneous Fish Oil [place] Carbonate 600 MG Capsule as directed Orally [...] as directed Subcutaneous Not-Taking/PRN Fish Oil Not-Taking/PRN [place] Carbonate 600 MG Capsule as directed Orally [...] - L60.0??? Plan: * Treatment: 2.?Tinea unguium?Procedure: 42216-FMDLLOG NAIL, 6 OR MORE 3.?Ingrown nail?Procedure: 83344-Valylwbi Plate * Procedures:?Debride Nail 6-10:?Nail debridement?Performance of this nail treatment by a nonprofessional would put this patients foot and overall health at risk. Therefore, debridement to affected nail(s), as described in exam, was performed extensively to reduce/remove overall nail length, girth, thickness, subungual debris, and necrotic tissue, by manual and/or electrical means through the use of a nail nipper and/or dremel-type glaze grinder, to a more viable healthy nail [...] to maintain effectiveness in symptomatic relief - 13537.?Keratoma Treatment:?Parring or Cutting of Benign Hyperkeratotic Lesion(s)?(-57) More than 4 Lesions - The Benign hyperkeratotic lesions, ( 5 ) in total, locations as stated and described in exam, were pared, and/or cut utilizing a sterile 15 blade, tissue nippers, and/or power dremel instrumentation - 36685.?Nail Avulsion:?Location?, Lateral nail border, TA.?Anesthesia?, was deferred [...] Motrin was recommended for pain or discomfort (67321), DIABETES: Matricectomy deferred at this time due to diabetes risk.? * Procedure Codes:?13183 DEBRI DE NAIL, 6 OR MORE, Modifiers: XS 58163 Avulsion Plate, [place]: [place] [address] TRIM SKIN LESIONS, OVER 4, Modifiers: XS * Follow Up:?prn * Images: * Sign off status: Completed true * Provider:?Matilda Gonzalez DPM Date:?2023 Generated for Rukhsana melton/Sylvia/Hans on:?03/02/2024 11:39 AM EST History and Physical Notes * [...]
--- OUTSIDE RECORDS SUMMARY | 2024-03-02 14:17 | XMS_ITS ---
Author Organization [facility] Address [address] [place] [address] Care Team Providers Care Metallurgical Laboratory Assistant Name Role Phone Pao ZHANG, Rowena Garrido Primary Care Provider Un available Carlos Matilda Unavailable [phone] Encounters Encounter Location Date Provider Diagnosis [address] [address] 12/27/2023 Matilda Gonzalez Plan Of Treatment Next Appt Details Provider Name:Matilda Gonzalez , 05/01/2024 01:30:00 PM, [address] [place] [address], [phone], Progress Notes * Matty MCGEEDOB:[birth year] (44 yo M)Acc No.[id number]:12/27/2023 Progress Note Patient:?VARGAS Ludwig o Provider:?Matilda Gonzalez DPM :1980???Age:43 Y???Sex:Male Christo e:12/27/2023 Address: [address], [place] Pcp:Antonella Swan Subjective: * Chief Complaints: * [...] DPM Date:?2023 Generated for Rukhsana melton/Sylvia/Hans on:?03/02/2024 02:16 PM EST
== END 2024-03-02 13:11 | disposition home or self-care (01) ==
LOC: HO.LABR 13:10
PROVIDERS: PCP Internal Medicine
DX: Z79.899 Other long term (current) drug therapy (principal)
CPT/HCPCS: 36415; 85025

== ENCOUNTER 2024-04-03 11:09 | Outpatient (REF) | payer MEDICARE, MEDICAID, SELFPAY ==
--- OUTSIDE RECORDS SUMMARY | 2024-04-03 12:26 | XMS_ITS ---
Author Organization [facility] Address Unknown Problems Problem Status Start Date End Date SCHIZOAFFECTIVE DISORDER, UN SPECIFIED (Primary) (F25.9 - ICD-10-CM) ACTIVE 12/06/2023 TYPE 2 DIABETES MELLITUS WIT H HYPEROSMOLARITY WITHOUT NONKETOTIC HYPERGLYCEMIC-HYPEROSMOLAR COMA (NKHHC) (E11.00 - ICD-10-CM) ACTIVE 12/06/2023 OTHER DISORDERS OF LUNG (J98.4 - ICD-10-CM) ACTIVE 12/06/2023 PAIN IN RIGHT HIP (M25.551 - ICD-10-CM) ACTIVE 1 ESSENTIAL (PRIMARY) HYPERTENSION (I10 - ICD-10-CM) ACT KASANDRA 12/06/2023 OTHER LACK OF COORDINATION (R27.8 - ICD-10-CM) ACTIVE 12/06/2023 MUSCLE WEAKNESS (GENERALIZED) (M62.81 - ICD-10-CM) ACT KASANDRA 12/06/2023 DIFFICULTY IN WALKING, NOT E LSEWHERE CLASSIFIED (R26.2 - ICD-10-CM) ACTIVE 12/06/2023 CHRONIC KIDNEY DISEASE, STAG E 3 UNSPECIFIED (N18.30 - ICD-10-CM) ACTIVE 12/07/2023 CHRONIC KIDNEY DISEASE, STAG E 3 (MODERATE) (N18.3 - ICD-10-CM) RESOLVED 12/06/2023 12/06/2023 ANXIETY DISORDER, UNSPECIFIED (F41.9 - ICD-10-CM) ACTI VE 12/06/2023 GASTRO-ESOPHAGEAL REFLUX DIS EASE WITHOUT ESOPHAGITIS (K21.9 - ICD-10-CM) ACTIVE 12/06/2023 PURE HYPERCHOLESTEROLEMIA, U NSPECIFIED (E78.00 - ICD-10-CM) ACTIVE 12/06/2023 TYPE 2 DIABETES MELLITUS WIT H DIABETIC NEUROPATHY, UNSPECIFIED (E11.40 - ICD-10-CM) ACTIVE 12/06/2023 Encounters Encounter Performer Performer Role Encounter Diagnoses Location Date Discharge - Discharged to home or self care - Home (Agency Unknown) - Private home/apt. with home health services [facility] [place] 12/06/2023 08:38 pm EDT - 12/14/2023 12:26 pm EDT Immunizations Vaccine Date Influenza 12/07/2023 12:00 am EDT Social History
[2024-04-03 13:23] LABS: MANUAL DIFF FLAG NO
[2024-04-03 13:39] LABS: Basophils Percent Auto 0.1 % (0-2); Hematocrit 45.4 % (42.0-52.0); Hemoglobin 15.4 g/dl (14.0-18.0); Imm Gran Abs Auto 0.04 X10*3/uL (0.00-0.03); Imm Gran Pct Auto 0.5 % (0.0-0.4); Lymphocytes Absolute Auto 2.2 X10*3/uL (1.2-4.9); Lymphocytes Percent Auto 27.9 % (20-40); Mean Corpuscular HGB Conc 33.9 g/dl (31.0-36.0); Mean Corpuscular Hemoglobin 28.2 pg (27.0-33.0); Mean Corpuscular Volume 83.2 fL (80.0-98.0); Mean Platelet Volume 10.1 fL (9.4-12.4); Monocytes Absolute Auto 0.5 X10*3/uL (0.1-1.2); Monocytes Percent Auto 6.6 % (2-11); Neutrophils Percent Auto 64.9 % (45-73); Platelet Count 237 X10*3/uL (160-400); Red Blood Count 5.46 X10*6/uL (4.60-5.80); Red Cell Distribution Width 14.7 % (11.0-16.0); White Blood Count 7.7 X10*3/uL (4.8-10.8)
[2024-04-03 15:35] LABS: Creatinine Urine 25.92 mg/dL; Total Protein Urine Random 11 mg/dL (<12)
[2024-04-03 15:35] LABS: Anion Gap 13 (12-20); Blood Urea Nitrogen 22 mg/dL (9-16); Calcium 9.6 mg/dL (8.4-10.2); Carbon Dioxide 18 mmol/L (22-29); Chloride 113 mmol/L (96-108); Estimated Glomerular Filt Rate 37; Potassium 4.9 mmol/L (3.3-5.1); Sodium 139 mmol/L (135-145)
[2024-04-12 01:09] LABS: Parathyroid Hormone Related Pr 12 pg/mL (11-20)
== END 2024-04-03 11:10 | disposition home or self-care (01) ==
LOC: HO.HMGCLR 11:09
PROVIDERS: Internal Medicine Hypertension Specialist; PCP Internal Medicine; Visit Provider Clinical Nurse Specialist Psychiatric/Mental Health, Adult
DX: Z79.899 Other long term (current) drug therapy (principal); N18.30 Chronic kidney disease, stage 3 unspecified
CPT/HCPCS: 36415; 80051; 82310; 82565; 82570; 83519; 84156; 84520; 85025

== ENCOUNTER 2024-04-27 11:12 | Outpatient (REF) | payer MEDICARE, MEDICAID, SELFPAY ==
[2024-04-27 13:16] LABS: Hematocrit 46.5 % (42.0-52.0); Hemoglobin 15.8 g/dl (14.0-18.0); Mean Corpuscular Hemoglobin 28.1 pg (27.0-33.0); Mean Corpuscular Volume 82.6 fL (80.0-98.0); Mean Platelet Volume 10.1 fL (9.4-12.4); Platelet Count 246 X10*3/uL (160-400); Red Blood Count 5.63 X10*6/uL (4.60-5.80); Red Cell Distribution Width 14.9 % (11.0-16.0)
[2024-04-27 13:17] LABS: WBC ABN SCTR FOR CBC 1
--- OUTSIDE RECORDS SUMMARY | 2024-04-27 13:33 | XMS_ITS | Patient Health Record ---
Author Organization [facility] Address [address] [facility] [place] [address] Care Team Providers Care Compressor Operator Name Role Phone Pao ZHANG, Rowena Garrido Primary Care Provider Un available Black, Matilda Unavailable [phone] Allergies No Known Allergies Results Component Value Reference Range Notes HEMOGLOBIN A1C (GLYCOHEMOGLO BIN) Reviewed date:03/11/2024 11:38:18 AM Interpretation: Performing Lab: Notes/Report: HEMOGLOBIN A1C % (HH) 8.2 Reason For Referral No Information Medications Medication [...] MG as directed Orally Active Vascepa Not-Taking [place] 3 Active Benadryl Not-Taking Losartan Potassium 25 [...] tablet Orall y Once a day Active [place] Carbonate 600 MG as directed Ora lly [...] Administration Date Status Comme nts COVID-19 Pfizer BioNTech Vaccine Unknown 12/25/2020 Administered First Dose: 04/01/20 [...] Problem Acquired hammer toe of right foot (0871641292548699 ) Other hammer toe(s) (acquired), right foot (M20.41) Active confirmed Problem Acquired hammer toe of left foot (1184532178845789 ) Other hammer toe(s) (acquired), left foot (M20.42) Active confirmed Problem Localized, primary osteoarthritis of the ankle and/or foot (737126388) Primary osteoarthritis, right ankle and foot (M19.071) Active confirmed Problem Polyneuropathy due to diabetes mellitus type I (307548984) Type 1 diabetes mellitus with diabetic polyneuropathy (E10.42) Active confirmed Vital Signs Height 5ft 8in in 01/24/2024 Weight 220 lbs 01/24/2024 BMI 33.45 kg/m2 01/24/2024 Procedures Procedure Date Ordered Date Performed Result Body Sit e 55498-MZQLZJO NAIL, 6 OR MORE 05/20/2023 N/A 77030-AIMH SKIN LESIONS, OVER 4 05/20/2023 N/A 31203-RKPMKEO NAIL, 6 OR MORE 09/16/2023 N/A 37348-VMBX SKIN LESIONS, OVER 4 09/16/2023 N/A 83820-WRBEKCJ NAIL, 6 OR MORE 01/24/2024 N/A 84320-Tjhygqui Plate 01/24/2024 N/A 98842-QVFA SKIN LESIONS, OVER 4 01/24/2024 N/A Encounters Encounter Location Date Provider Diagnosis [address] [address] 05/20/2023 Matilda Black Type 1 diabetes mellitus with diabetic polyneuropathy E10.42 and Tinea unguium B35.[address] [address] 09/16/2023 Matilda Black Type 1 diabetes mellitus with diabetic polyneuropathy E10.42 and Tinea unguium B35.[address] [address] 01/24/2024 Matilda Black Type 1 diabetes mellitus with diabetic polyneuropathy E10.42 ; Tinea unguium B35.1 and Ingrown nail L60.[address] [address] 09/16/2023 Matilda Gonzalez [facility] [place] [address] [place] [address] 10/21/2023 Matildajuan Gonzalez [facility] Encounter Date Diagnosis (ICD Code) Assessment Notes [...] Treatment Pending Test Test Name Order Date 25619-KYDBCWR NAIL, 6 OR MORE 01/07/2012 17680-YNBBLZM NAIL, 6 OR MORE 04/11/2012 08879-OLXWICF NAIL, 6 OR MORE 07/11/2012 90942-NDWLOWF NAIL, 6 OR MORE 10/03/2012 25887-EHDSEBT NAIL, 6 OR MORE 12/19/2012 87628-SKYBIAY NAIL, 6 OR MORE 03/23/2013 22493-ASYTNYX NAIL, 6 OR MORE 06/21/2013 03865-YSUPRCC NAIL, 6 OR MORE 09/20/2013 88255-VSJCYFM NAIL, 6 OR MORE 12/07/2013 79530-TYINLQC NAIL, 6 OR MORE 03/14/2014 09300-LFLYPCW NAIL, 6 OR MORE 06/20/2014 82084-QFRLUXG NAIL, 6 OR MORE 08/23/2014 25980-CEEWYTR NAIL, 6 OR MORE 11/22/2014 16569-DYHBQXW NAIL, 6 OR MORE 02/13/2015 48269-NXJOBXS NAIL, 6 OR MORE 05/15/2015 64995-WGALEFJ NAIL, 6 OR MORE 08/12/2015 96725-NUIXGQY NAIL, 6 OR MORE 11/11/2015 82666-KFHYDAR NAIL, 6 OR MORE 02/19/2016 82240-WQEGBER NAIL, 6 OR MORE 05/21/2016 32230-EFZMPLU NAIL, 6 OR MORE 10/05/2016 57754-YBEQYSF NAIL, 6 OR MORE 01/11/2017 31824-VZMBEUD NAIL, 6 OR MORE 04/12/2017 43628-KSTJXSB NAIL, 6 OR MORE 09/16/2017 19648-RJPCJOL NAIL, 6 OR MORE 12/16/2017 96866-ZJJWTHW NAIL, 6 OR MORE 03/17/2018 61099-BIRHCED NAIL, 6 OR MORE 07/14/2018 64383-PWSPGTO NAIL, 6 OR MORE 01/16/2019 43493-OMGVKID NAIL, 6 OR MORE 08/17/2019 67102-FGEOXBF NAIL, 6 OR MORE 11/20/2019 52727-DYESZDV NAIL, 6 OR MORE 03/07/2020 89900-WNLRUTC NAIL, 6 OR MORE 06/06/2020 69988-FSLTLFN NAIL, 6 OR MORE 09/12/2020 66584-QOJCFHB NAIL, 6 OR MORE 12/26/2020 41515-FQTLTBE NAIL, 6 OR MORE 04/07/2021 38408-RPJYQNQ NAIL, 6 OR MORE 07/07/2021 72762-HDNDFUN NAIL, 6 OR MORE 10/13/2021 63667-PJTRFBV NAIL, 6 OR MORE 01/12/2022 62726-TLRMTDT NAIL, 6 OR MORE 06/04/2022 00363-OURAART NAIL, 6 OR MORE 08/24/2022 39198-XJHOTOV NAIL, 6 OR MORE 11/19/2022 34746-UIOVTBM NAIL, 6 OR MORE 02/08/2023 64184-FSMASAS NAIL, 6 OR MORE 05/20/2023 41681-KYYTZGZ NAIL, 6 OR MORE 09/16/2023 53516-UYYSPPR NAIL, 6 OR MORE 01/24/2024 34169-Slpyqriw Plate 01/24/2024 16311-Balgwydy Plate 08/24/2022 90716-Ffrrggoq Plate 10/13/2021 06578-Eylabuiu Plate 07/07/2021 28518-Cpdvulbs Plate 11/22/2014 90991-Erwreckf Plate 08/23/2014 07259-Epdnellg Plate 06/20/2014 54060-Cpnodpjq Plate 03/14/2014 39893-Dsazncib Plate 12/07/2013 11108-Elmsirap Plate 09/20/2013 30365-Pdxqxrnt Plate 06/21/2013 41841-Vneirgyj Plate Each Additional 61918-Ckoqcirk Plate Each Additional 10/2021 29410, J0702- INJECT or DRAIN, JOINT/BUR SA 06/06/2020 60467-OWFK SKIN LESIONS, OVER 4 07/08/19 81163-AUDG SKIN LESIONS, OVER 4 04/07/19 72193-RIHG SKIN LESIONS, OVER 4 12/27/19 21 62312-ZTRT SKIN LESIONS, OVER 4 10/14/19 17427-DKPL SKIN LESIONS, OVER 4 01/13/20 60631-JYBY SKIN LESIONS, OVER 4 08/25/19 68767-IUZX SKIN LESIONS, OVER 4 06/05/19 32197-HJUL SKIN LESIONS, OVER 4 09/16/19 24 93314-GSMV SKIN LESIONS, OVER 4 05/20/19 28865-POGJ SKIN LESIONS, OVER 4 02/09/20 30417-SIQC SKIN LESIONS, OVER 4 11/20/19 23 58544-TOHJ SKIN LESIONS, OVER 4 01/24/20 24 52303-EEAQ SKIN LESIONS, 2 TO 4 06/07/19 91460-BYGR SKIN LESIONS, 2 TO 4 09/13/19 21 32763-XWCC SKIN LESIONS, 2 TO 4 03/07/19 21 32682-NLTM SKIN LESIONS, 2 TO 4 11/20/19 20 61197-SKBP SKIN LESIONS, 2 TO 4 08/17/19 91822-ZFKZ SKIN LESIONS, 2 TO 4 01/17/20 19 18466-JLNI SKIN LESIONS, 2 TO 4 07/15/19 19 72756-NRPH SKIN LESIONS, 2 TO 4 03/17/19 19 97733-CBLJ SKIN LESIONS, 2 TO 4 12/17/19 18 84472-PHZW SKIN LESIONS, 2 TO 4 09/17/19 18 72017-YQZS SKIN LESIONS, 2 TO 4 01/12/20 17 17962-XLDL SKIN LESIONS, 2 TO 4 04/12/19 18 13439-JBHG SKIN LESIONS, 2 TO 4 06/22/19 14 16793-TGUQ SKIN LESIONS, 2 TO 4 09/21/19 14 33608-BCAW SKIN LESIONS, 2 TO 4 12/08/19 14 72052-EOIU SKIN LESIONS, 2 TO 4 03/23/19 14 23613-RJTY SKIN LESIONS, 2 TO 4 10/04/19 13 19423-EDSG SKIN LESIONS, 2 TO 4 07/12/19 13 03524-YFKC SKIN LESIONS, 2 TO 4 03/14/19 15 39682-ZTMB SKIN LESIONS, 2 TO 4 06/21/19 15 85912-MNHW SKIN LESION 05/21/2016 14972-LBTT SKIN LESION 10/05/2016 Next Appt Details Provider Name:Matilda Gonzalez , 05/01/2024 01:30:00 PM, [address] [place], [address], Insurance Providers Payer Name Payer Address Payer Phone Subscriber Number Group Number Insured Name Patient Relationship to Insured Coverage Start Date Coverage End Date Medicare National [employer] [address] [place] [address] [id number] Matty Mejia Self - patient is the insured Medical (General) History Medical History History ICD Code anxiety depression diabetic headaches/migraines high blood pressure psychiatric disorder reflux chicken pox Surgical History Surgery Date(Month/Year) Hospitalization History Reason Date(Month/Year) bad hip [facility]/[facility]23 [facility]- pt cant remember overnight sleep study 12/2014
--- OUTSIDE RECORDS SUMMARY | 2024-04-27 13:33 | XMS_ITS ---
Author Organization [facility] Address [address] [place] [address] Care Team Providers Care Second Crusher Name Role Phone Pao ZHANG, Rowena Garrido Primary Care Provider Un available Carlos Matilda Unavailable [phone] Encounters Encounter Location Date Provider Diagnosis [address] [address] 12/16/2023 Matilda Gonzalez Plan Of Treatment Next Appt Details Provider Name:Matilda Gonzalez , 05/01/2024 01:30:00 PM, [address] [place] [address], [phone], Progress Notes * Matty MCGEEDOB:[birth year] (44 yo M)Acc No.[id number]:12/16/2023 Progress Note Patient:?VARGAS Ludwig o Provider:?Matilda Gonzalez DPM :1980???Age:43 Y???Sex:Male Christo e:12/16/2023 Address: [address], [place] Pcp:Antonella Swan Subjective: * Chief Complaints: * ??? * Medical History:? Objective: * Vitals:? Assessment: Plan: * Treatment: * Images: * The named appointment provid er may or may not be the originator of this progress note, and it is not deemed complete until electronically signed by the appointment provider. Sign off status: Pending * Provider:?Matilda Gonzalez DPM Date:?2023 Generated for Rukhsana melton/Sylvia/Hans on:?04/27/2024 01:33 PM EST
--- OUTSIDE RECORDS SUMMARY | 2024-04-27 13:34 | XMS_ITS ---
Author Organization [facility] Address [address] [place] [address] Care Team Providers Care Mutuel Teller Name Role Phone Pao ZHANG, Rowena Garrido Primary Care Provider Un available Carlos Matilda Unavailable [phone] Encounters Encounter Location Date Provider Diagnosis [address] [address] 12/27/2023 Matilda Gonzalez Plan Of Treatment Next Appt Details Provider Name:Matilda Gonzalez , 05/01/2024 01:30:00 PM, [address] [place] [address], [phone], Progress Notes * Matty MCGEEDOB:[birth year] (44 yo M)Acc No.[id number]:12/27/2023 Progress Note Patient:?VARGAS Ludwig o Provider:?Matilda Gonzalez DPM :1980???Age:43 Y???Sex:Male Christo e:12/27/2023 Address: [address], [place] Pcp:Antonella Swan Subjective: * Chief Complaints: * [...]
[2024-04-27 13:52] LABS: Band Neutrophils Percent 0 % (3-5); Lymphocytes Percent Manual 19 % (20-40); Monocytes Percent Manual 7 % (2-11); Neutrophils Percent Manual 74 % (45-73)
[2024-04-27 13:54] LABS: Burr Cells 1+ (0-2) /OIF; Platelet Estimate NORMAL (NORMAL); Platelet Morphology Comment NORMAL; RBC Morphology NOTED
[2024-04-27 15:14] LABS: Lymphocytes Absolute Manual 1.8 X10*3/uL (1.2-4.9); Monocytes Absolute Manual 0.7 X10*3/uL (0.1-1.2); White Blood Count 9.4 X10*3/uL (4.8-10.8)
== END 2024-04-27 11:13 | disposition home or self-care (01) ==
LOC: HO.HMGCLR 11:12
PROVIDERS: PCP Internal Medicine; Visit Provider Clinical Nurse Specialist Psychiatric/Mental Health, Adult
DX: Z79.899 Other long term (current) drug therapy (principal)
CPT/HCPCS: 36415; 85007; 85027

== ENCOUNTER 2024-05-01 10:10 | Outpatient (AMB) | payer MEDICARE, MEDICAID, SELFPAY ==
[2024-05-01 10:11] VITALS: BP 124/86; PULSE 107; O2SAT 98; BMI 33.3
--- NOTE | 2024-05-01 10:11 | HO.NEPHOV ---
Vital Signs 05/01/24 10:11 Height 5 ft 8 in Weight 219 lb BMI 33.3 BP 124/86 Blood Pressure Location Lt brachial Position Sitting Pulse 107 H Pulse Source Pulse Oximeter Pulse Oximetry (%) 98 Oxygen Delivery Method Room Air Intake Visit Reasons: CKD/ Conf Licensed Marine Engineer Required: No Accompanied by: Staff out reach Allergies No Known Allergies Allergy (Verified 05/01/24 10:13) HPI Comments Details: Matty is a middle-aged man with a history of schizoaffective disorder who was on lithium for many years. Pastos was stopped 06/26/2022 He has a longstanding history of diabetes mellitus. History of chronic kidney disease. He was previously seen about a year ago and lost to follow-up. He has been referred again for management of CKD. Recent serum creatinine is 2.0 mg/dL with the EGFR of about 33 mL/minute. The blood pressure has been well controlled. He is currently on angiotensin receptor lesia along with Jardiance. He was on metformin which has been recently discontinued. He Smokes 2PPD 12/28/23 ;Overall doing OK ;Off Metformin now ;Currently on SGLT-2 inhibitors 05/01/24 c/o back pain - on and off; usually when sitting. No urinary symptoms. No GI sypmtoms Takes tylenol or Ibuprofen Still smokes 2 PPD PFSH Medical History (Updated 02/14/24 @ 13:45 by Rowena Cedeno MD) CKD (chronic kidney disease) stage 3, GFR 30-59 ml/min Tinea unguium Type 2 diabetes mellitus with diabetic polyneuropathy CKD (chronic kidney disease) stage 4, GFR 15-29 ml/min Type 2 diabetes mellitus with complication, with long-term current use of insulin Uncontrolled diabetes mellitus with hyperglycemia Hypercalcemia Noncompliance with medication regimen Rash and nonspecific skin eruption Tremor Vitamin D deficiency Mixed dyslipidemia Restrictive airway disease Type 2 diabetes mellitus with other diabetic kidney complication Solitary pulmonary nodule on lung CT Smoker unmotivated to quit Obesity (BMI 30-39.9) Schizoaffective disorder Essential hypertension Surgical History No pertinent past surgical history Family History Father Unknown family medical history Mother Unknown family medical history Brother No problems noted. Sister No problems noted. Social History Housing: Other Housing Other:: long term Alcohol intake: never Patient Tobacco Use Status: Current everyday Tobacco user Cigarette Packs Per Day: 2 e-Cigarette/Vaping Use: Never Used Substance Use Type: Marijuana Advance Directives Date on File: 12/06/23 service: No Current occupational status: disabled Cognitive needs: No Hearing needs: No Vision needs: Yes Physical Exam Vital Signs: Last Vital Signs Pulse 107 H 05/01/24 10:11 BP 124/86 05/01/24 10:11 Pulse Ox 98 05/01/24 10:11 Oxygen Delivery Method Room Air 05/01/24 10:11 BMI result Body Mass Index 33.3 Const General: comfortable; No acute distress Orientation/consciousness: patient oriented x3 Eyes General: appearance normal, both eyes and all related structures Visual Gross: normal visual gross by confrontation Neck Neck: Yes supple and Yes no JVD Resp Effort & Inspection: normal respiratory effort and respiratory effort not decreased Auscultation: rhonchi Cardio Palpation: no palpable S3 and no palpable S4 Heart sounds: no rubs GI Inspection: Yes normal to inspection Palpation (GI): Soft to palpation Percussion: Yes normal to percussion Auscultation: normal bowel sounds General: Yes no CVA tenderness Back/Spine/Pelvis Back: no CVA tenderness Skin General skin exam: no petechiae and no purpura Neuro General: patient oriented x3 and no focal motor deficits Extrem General: No clubbing and No edema Results Reviewed Nephrology Results: Hgb 15.8 g/dl (14.0-18.0) 04/27/24 WBC 9.4 X10*3/uL (4.8-10.8) 04/27/24 Plt Count 246 X10*3/uL (160-400) 04/27/24 Sodium 139 mmol/L (135-145) 04/03/24 Potassium 4.9 mmol/L (3.3-5.1) 04/03/24 Chloride 113 mmol/L (96-108) H 04/03/24 Carbon Dioxide 18 mmol/L (22-29) L 04/03/24 BUN 22 mg/dL (9-16) H 04/03/24 Creatinine 1.97 mg/dL (0.5-1.4) H 04/03/24 Calcium 9.6 mg/dL (8.4-10.2) 04/03/24 Urine Creatinine 25.92 mg/dL 04/03/24 Assessment & Plan Assessment & Plan (1) CKD (chronic kidney disease) stage 3, GFR 30-59 ml/min: Code(s): N18.30 - Chronic kidney disease, stage 3 unspecified Category: Medical Plan Matty has stage IIIB chronic kidney disease. CKD is most likely due to underlying diabetic kidney disease. He has been on lithium for a long time therefore lithium nephropathy can not be ruled out. At present he has no evidence of diabetes insipidus. He is no longer on lithium. Goal is to slow the portion of renal disease. Continue to maintain obtain blood pressure less than 130/80. Discussed importance of tight control blood sugar and A1c should be maintained less than 7%. Discussed importance of smoking cessation but he has no intention to quit. He will definitely benefit from weight loss. Encouraged to AVOID NSAIDS/Ibuprofen Given the degree of renal insufficiency I agree with avoiding metformin due to risk of lactic acidosis. Agree with SGLT-2 inhibitors for renal protection We will continue to screen for comorbid conditions including anemia and secondary hyperparathyroidism prior to his next visit. Discussed smoking cessation again Orders: Orders Parathyroid Hormone Intact 4 Months N18.30 - Chronic kidney disease, stage 3 unspecified Complete Blood Count no Diff 4 Months N18.30 - Chronic kidney disease, stage 3 unspecified Basic Metabolic Panel 4 Months N18.30 - Chronic kidney disease, stage 3 unspecified Coding Level of Care Code Est Pt Level 4 (15697) Diagnoses CKD (chronic kidney disease) stage 3, GFR 30-59 ml/min N18.30
--- OUTSIDE RECORDS SUMMARY | 2024-05-01 11:42 | XMS_ITS ---
Author Organization [facility] Address [address] [facility] [place] [address] Care Team Providers Care Benefits Coordinator Name Role Phone Pao ZHANG, Rowena Garrido Primary Care Provider Un available Black, Matilda Unavailable [phone] Allergies No Known Allergies REASON FOR VISIT [...] e a day for 30 day(s) Not-Taking [place] Carbonate 600 MG as directed Ora lly [...] HCl 25 MG as directed Orally Active [place] 3 Active Omeprazole 20 MG 1 capsule [...] Ordered Date Performed Result Body Sit e 77950-AKSANTE NAIL, 6 OR MORE 01/24/2024 N/A 71581-Ngdtcegd Plate 01/24/2024 N/A 38948-LNNF SKIN LESIONS, OVER 4 01/24/2024 N/A Encounters Encounter Location Date Provider Diagnosis [facility] [place] [address] [place] [address] 01/24/2024 Matilda Black Type 1 diabetes mellitus [...] Treatment Pending Test Test Name Order Date 53165-IMTZILT NAIL, 6 OR MORE 01/24/2024 19982-Wnfrqpkf Plate 01/24/2024 96603-RUPX SKIN LESIONS, OVER 4 01/24/20 24 Next Appt Details Follow Up: prn, Reason: Provider Name:Mtailda Gonzalez , 05/01/2024 01:30:00 PM, [address] [place] [address], [phone], Procedure Notes * Category Sub-Category Detail Notes [...] Motrin was recommended for pain or discomfort (72795), DIABETES: Matricectomy deferred at this time due [...] use of a nail nipper and/or dremel-type cinnamon grinder, to a more viable healthy nail [...] to maintain effectiveness in symptomatic relief - 71793 Keratoma Treatment Parring or Cutting o f Benign Hyperkeratotic Lesion(s) (-57) More than 4 Lesions - The Benign hyperkeratotic lesions, ( 5 ) in total, locations as stated and described in exam, were pared, and/or cut utilizing a sterile 15 blade, tissue nippers, and/or power dremel instrumentation - 43464 Progress Notes * Matty MCGEEDOB:[birth year] (44 yo M)Acc No.[id number]:01/24/2024 Progress Note Patient:?Ludwig MCGEE Provider:?Matilda Gonzalez DPM :1980???Age:43 Y???Sex:Male Christo e:01/24/2024 Address:[address] [place], [place] [id number] Pcp:Antonella Swan Subjective: * Chief Complaints: * [...] * Hospitalization/Major Diagno stic Procedure:?overnight sleep study [facility] [place] cant remember bad hip [facility] 10/31/2023 * Family History:?Mother: dece ased.?Father: alive, [...] morning meal Orally Once a day Trulicity [place] 3 hydrOXYzine HCl 25 MG Tablet as [...] Orally Once a day Taking Trulicity Taking [place] 3 Taking hydrOXYzine HCl 25 MG Tablet [...] UNIT/ML Suspension as directed Subcutaneous Fish Oil [place] Carbonate 600 MG Capsule as directed Orally [...] as directed Subcutaneous Not-Taking/PRN Fish Oil Not-Taking/PRN [place] Carbonate 600 MG Capsule as directed Orally [...] 343, Ht-cm: 172.72 cm, Wt-k.79 kg. * ???Past Orders: ???Lab:HEMOGLOBIN A1C (GLYCO HEMOGLOBIN) (Order Date - 01/24/2024) (Collection Date & Time - 01/24/2024 11:37 AM) ? Value Reference Range ?HEMOGLOBIN A1C % (HH) 8.2 * Examination: ???Ophthalmology Referral: ?DIABETES EYE EXAM?Procedure Performed:?No 02/17/2024 first appt ?Eye Exam not performed:?No reason specified?Ingrown Nail: ?INSPECTION:?Reveals nail incurvation, pain on palpation, [...] s),Left ,, SUB MTH (s), 5 , B/L.?General Examination: ?GENERAL APPEARANCE:?Reveals a pleasant, alert, well nourished, well- developed, well hydrated individual, who demonstrates proper attention to hygiene/body habitus, and is in no acute distress, Pt serves as own historian for office visit today.?ORIENTED:?person, place, and time.?FOOT EXAM:?Lower Extremity Neurological Exam performed:?Yes ?Visual exam of foot performed:?Yes ?Date?01/24/2024 ?Sensory testing performed:?sensations diminished ?Sensory and motor testing performed:?sensations diminished ?Pedal pulse taking performed:?2+ ?Footwear Evaluation?Footwear Evaluation performed:?Yes?Orthopedic: ?FOOTWEAR:?Non-Diabetic with no OT.? Assessment: * Assessment: 1.?Type 1 diabetes mellitus with diabetic polyneuropathy - E10.42 (Primary)???2.?Tinea unguium - B35.1???3.?Ingrown nail - L60.0??? Plan: * Treatment: 2.?Tinea unguium?Procedure: 71933-CWSHTWN NAIL, 6 OR MORE 3.?Ingrown nail?Procedure: 87708-Qezsjplx Plate * Procedures:?Debride Nail 6-10:?Nail debridement?Performance of this nail treatment by a nonprofessional would put this patients foot and overall health at risk. Therefore, debridement to affected nail(s), as described in exam, was performed extensively to reduce/remove overall nail length, girth, thickness, subungual debris, and necrotic tissue, by manual and/or electrical means through the use of a nail nipper and/or dremel-type cinnamon grinder, to a more viable healthy nail [...] to maintain effectiveness in symptomatic relief - 32093.?Keratoma Treatment:?Parring or Cutting of Benign Hyperkeratotic Lesion(s)?(-57) More than 4 Lesions - The Benign hyperkeratotic lesions, ( 5 ) in total, locations as stated and described in exam, were pared, and/or cut utilizing a sterile 15 blade, tissue nippers, and/or power dremel instrumentation - 59722.?Nail Avulsion:?Location?, Lateral nail border, TA.?Anesthesia?, was deferred [...] Motrin was recommended for pain or discomfort (72534), DIABETES: Matricectomy deferred at this time due to diabetes risk.? * Procedure Codes:?65050 DEBRI DE NAIL, 6 OR MORE, Modifiers: XS 98584 Avulsion Plate, [place]: [place] [address] TRIM SKIN LESIONS, OVER 4, Modifiers: XS * Preventive Medicine:? ??Counseling:?Tobacco use:?Type of Tobacco Use Cessation Counseling provided?Smoking cessation education ?Patient counseled on the dangers of smoking and urged to quit:?01/24/2024 ?Shoe Gear Counseling:?The patient deferred recommended diabetic shoes with heat moled inserts.? * Follow Up:?prn * Images: * Sign off status: Completed true * Provider:?Matilda Gonzalez DPM Date:?2023 Generated for Rukhsana melton/Sylvia/eTlorrie on:?05/01/2024 11:42 AM EST History and Physical Notes * HPI (History of Present Illness) Category Sub-Category Detail Notes Category Not es Painful Nails Pt States Last PCP Visit: Date:: 05/19/2023 At Risk footcare Pt States Last PCP Visit: Date: Examination Category Sub-Category Detail Notes Category Not [...] ,, SUB MTH (s), 5 , B/L Orthopedic FOOTWEAR: Non-Diabetic with no OT General Examination GENERAL APPEARANCE: Reveals a pleasant, alert, well nourished, well-developed, well hydrated individual, who demonstrates proper attention to hygiene/body habitus, and is in no acute distress, Pt serves as own historian for office visit today FOOT EXAM: Lower Extremity Neurological Exa m performed:: Yes Visual exam of foot performed:: Yes Date: 01/24/2024 Sensory testing performed:: sensations d iminished Sensory and motor testing performed:: se nsations diminished Pedal pulse taking performed:: 2+ ORIENTED: person, place, and t joann Footwear Evaluation Footwear Evaluation performe d:: Yes Ophthalmology Referral DIABETES EYE EXAM Procedu re Performed:: No 02/17/2024 first appt Eye Exam not performed:: No reason speci fied Nails NAILS are: grossly elongate d,overgrown,dystrophic,greater than 5mm thick,discolored and friable with crumbly malodorous subungual debris, with pain on palpation , T1 , T2 , T4 , T5 , T6 , T7 , T9
--- OUTSIDE RECORDS SUMMARY | 2024-05-01 11:42 | XMS_ITS ---
Author Organization [facility] Jaylan Address [address] [facility] [place] [address] Care Team Providers Care Academic Success Coordinator Name Role Phone Pao ZHANG, Rowena Garrido Primary Care Provider Un available Black, Matilda Unavailable [phone] Medications Medication SIG (Take, Route, Frequency, Duration) Notes Start Date End Date Status Vitamin D Not-Taking Lantus Not-Taking Tylenol Not-Taking Fenofibrate 160 MG as directed Active Extra Depth Orthopedic Shoes (1 Pair) with [...] Once a day for 30 day(s) Active traZODone HCl Active hydrOXYzine HCl 25 MG as directed Orally Active Quinhagak 3 Active Trulicity Active Omeprazole 20 MG 1 capsule 30 minutes before morning meal Orally Once a day Active Rosuvastatin Calcium 5 MG 1 tablet Orall y Once a day Active Tresiba 100 UNIT/ML as directed Subcutaneous Active Anoro Ellipta 62.5-25 MCG/ACT 1 puff Inhalation Once a day Active Flonase Active metFORMIN HCl Not-Ta hola Tricor 145 MG 1 tablet Orally Once a day for 30 day(s) Not-Taking Albuterol Sulfate Ac tive Invokana Not-Taking Ozempic Active Hydrocortisone 2.5 % as directed Externa lly to feet Twice a day for 30 days Not-Taking Vascepa Not-Taking Benadryl Not-Taking Losartan Potassium 25 MG 1 tablet Orally Once a day Not-Taking Cleocin-T 1 % 1 application to affected area Externally Twice a day Not-Takin g [place] Carbonate 600 MG as directed Ora lly Twice a day Not-Taking Fish Oil Not-Taking HumuLIN 70/30 (70-30) 100 UNIT/ML as directed Subcutaneous Not-Taking Gemfibrozil 600 MG as directed Orally Twice a day Not-Taking PriLOSEC 20 MG 1 capsule Orally Onc e a day for 30 day(s) Not-Taking Glucophage 1000 MG 1 tablet with meals Orally Twice a day for 30 day(s) Not-Taking PriLOSEC Not-Taking Encounters Encounter Location Date Provider Diagnosis [facility] [address] [address] 05/01/2024 Matilda Gonzalez Plan Of Treatment Next Appt Details Provider Name:Matilda Alex Gonzalez , 05/01/2024 01:30:00 PM, [address] [place] [address], [phone], Progress Notes * Matty MCGEEDOB:[birth year] (44 yo M)Acc No.[id number]:05/01/2024 Progress Note Patient:?Ludwig MCGEE Provider:?Matilda Gonzalez DPM :1980???Age:44 Y???Sex:Male Christo e:05/01/2024 Address:[address] [place], [place] [address], [place] Pcp:Antonella Swan Subjective: * Chief Complaints: * ??? * Medical History:?Anxiety, De pression, Diabetic, Headaches/migraines, High blood pressure, Psychiatric disorder, Reflux, Chicken pox. * Medications:?Taking Ozempic , Taking Albuterol Sulfate , Taking Flonase , Taking Anoro Ellipta 62.5-25 MCG/ACT Aerosol Powder Breath Activated 1 puff Inhalation Once a day , Taking Tresiba 100 UNIT/ML Solution as directed Subcutaneous , Taking Rosuvastatin Calcium 5 MG Tablet 1 tablet Orally Once a day , Taking Omeprazole 20 MG Capsule Delayed Release 1 capsule 30 minutes before morning meal Orally Once a day , Taking Trulicity , Taking Quinhagak 3 , Taking hydrOXYzine HCl 25 MG Tablet as directed Orally , Taking traZODone HCl , Taking Colace 100 MG Capsule 1 capsule as needed Orally Once a day , Taking Haldol , Taking Ativan 1 MG Tablet as directed , Taking Clozaril 200 MG Tablet 1 tablet Orally Once a day , Taking Cozaar 25 MG Tablet 1 tablet Orally Once a day , Taking Jardiance 25 MG Tablet 1 tablet Once a day , Taking Extra Depth Orthopedic Shoes (1 Pair) with Customized Heat Molded Multidensity Innersoles (3 Pair) as directed Dx: IDDM/Polyneuropathy (E10.42), Hammertoe Foot Deformity (M20.41,M20.42), Preulcerative Skin Lesion(s) (L85.1) , Taking Fenofibrate 160 MG Tablet as directed , Not-Taking/PRN Tylenol , Not-Taking/PRN Lantus , Not-Taking/PRN Vitamin D , Not-Taking/PRN PriLOSEC , Not-Taking/PRN Glucophage 1000 MG Tablet 1 tablet with meals Orally Twice a day , Not-Taking/PRN Gemfibrozil 600 MG Tablet as directed Orally Twice a day , Not-Taking/PRN HumuLIN 70/30 (70-30) 100 UNIT/ML Suspension as directed Subcutaneous , Not-Taking/PRN Fish Oil , Not-Taking/PRN [place] Carbonate 600 MG Capsule as directed Orally Twice a day , Not-Taking/PRN PriLOSEC 20 MG Capsule Delayed Release 1 capsule Orally Once a day , Not-Taking/PRN Cleocin-T 1 % Gel 1 application to affected area Externally Twice a day , Not-Taking/PRN Losartan Potassium 25 MG Tablet 1 tablet Orally Once a day , Not-Taking/PRN Benadryl , Not-Taking/PRN Vascepa , Not-Taking/PRN Hydrocortisone 2.5 % Cream as directed Externally to feet Twice a day , Not-Taking/PRN Invokana , Not-Taking/PRN Tricor 145 MG Tablet 1 tablet Orally Once a day , Not-Taking/PRN metFORMIN HCl Objective: * Vitals:? Assessment: Plan: * Treatment: * Images: * The named appointment provid er may or may not be the originator of this progress note, and it is not deemed complete until electronically signed by the appointment provider. Sign off status: Pending * Provider:Diogenes Gonzalez DPM Date:?2024 Generated for Rukhsana melton/Sylvia/Hans on:?05/01/2024 11:42 AM EST
--- OUTSIDE RECORDS SUMMARY | 2024-05-01 11:42 | XMS_ITS | Patient Health Record ---
[facility] Address [address] [facility] [place] [address] Care Team Providers Care Electronics Engineering Technologist Name Role Phone Pao ZHANG, Rowena Garrido Primary Care Provider Un available Black, Matilda Unavailable [phone] Allergies No Known Allergies Results Component Value Reference Range Notes HEMOGLOBIN A1C (GLYCOHEMOGLO BIN) Reviewed date:03/11/2024 11:38:18 AM Interpretation: Performing Lab: Notes/Report: HEMOGLOBIN A1C % (HH) 8.2 Reason For Referral No Information Medications Medication SIG (Take, Route, Frequency, Duration) Notes Start Date End Date Status [place] Carbonate 600 MG as directed Ora lly Twice a day Not-Taking Ativan 1 MG as directed Active Tricor 145 MG 1 tablet Orally Once a day for 30 day(s) Not-Taking Haldol Active Invokana Not-Taking Colace 100 MG 1 capsule as needed Orally Once a day for 30 day(s) Active Hydrocortisone 2.5 % as directed Externa lly to feet Twice a day for 30 days Not-Taking traZODone HCl Active Vascepa Not-Taking hydrOXYzine HCl 25 MG as directed Orally Active Benadryl Not-Taking [place] 3 Active Losartan Potassium 25 MG 1 tablet Orally Once a day Not-Taking Trulicity Active Cleocin-T 1 % 1 application to affected area Externally Twice a day Not-Takin g PriLOSEC 20 MG 1 capsule Orally Onc e a day for 30 day(s) Not-Taking Omeprazole 20 MG 1 capsule 30 minutes [...] Twice a day for 30 day(s) Not-Taking Ozempic Active PriLOSEC Not-Taking Vitamin D Not-Taking Lantus Not-Taking Tylenol Not-Taking [...] 1 tablet Orally Once a day Active metFORMIN HCl Not-Ta hola Immunizations Vaccine Route Administration Date Status Comme [...] Problem Acquired hammer toe of right foot (7041644452347656 ) Other hammer toe(s) (acquired), right foot (M20.41) Active confirmed Problem Acquired hammer toe of left foot (5050494671488704 ) Other hammer toe(s) (acquired), left foot (M20.42) Active confirmed Problem Localized, primary osteoarthritis of the ankle and/or foot (645325068) Primary osteoarthritis, right ankle and foot (M19.071) Active confirmed Problem Polyneuropathy due to diabetes mellitus type I (712774074) Type 1 diabetes mellitus with diabetic polyneuropathy (E10.42) Active confirmed Vital Signs Height 5ft 8in in 01/24/2024 Weight 220 lbs 01/24/2024 BMI 33.45 kg/m2 01/24/2024 Procedures Procedure Date Ordered Date Performed Result Body Sit e 60236-GFYURTJ NAIL, 6 OR MORE 05/20/2023 N/A 66692-TCKJ SKIN LESIONS, OVER 4 05/20/2023 N/A 42270-VITQGPG NAIL, 6 OR MORE 09/16/2023 N/A 25806-TOWX SKIN LESIONS, OVER 4 09/16/2023 N/A 82411-JCTFKFX NAIL, 6 OR MORE 01/24/2024 N/A 09474-Dwlrxgog Plate 01/24/2024 N/A 31133-PMEC SKIN LESIONS, OVER 4 01/24/2024 N/A Encounters Encounter Location Date Provider Diagnosis [address] [address] 05/20/2023 Matilda Black Type 1 diabetes mellitus with diabetic polyneuropathy E10.42 and Tinea unguium B35.[address] [address] 09/16/2023 Matilda Black Type 1 diabetes mellitus with diabetic polyneuropathy E10.42 and Tinea unguium B35.[address] [address] 01/24/2024 Matilda Black Type 1 diabetes mellitus with diabetic polyneuropathy E10.42 ; Tinea unguium B35.1 and Ingrown nail L60.[address] [address] 09/16/2023 Matilda Gonzalez [facility] [place] [address] [place] [address] 10/21/2023 Matildajuan Gonzalez [facility] Encounter Date Diagnosis (ICD Code) Assessment Notes [...] Treatment Pending Test Test Name Order Date 17638-ZVSSNRO NAIL, 6 OR MORE 01/07/2012 67171-XEDZBZQ NAIL, 6 OR MORE 04/11/2012 39779-KDTHJKL NAIL, 6 OR MORE 07/11/2012 25155-TGEHFZM NAIL, 6 OR MORE 10/03/2012 79029-XHKKPEP NAIL, 6 OR MORE 12/19/2012 59884-HYHFXAC NAIL, 6 OR MORE 03/23/2013 88029-VRFGCDO NAIL, 6 OR MORE 06/21/2013 12677-KDIXUOK NAIL, 6 OR MORE 09/20/2013 34849-OWSVIMT NAIL, 6 OR MORE 12/07/2013 80448-XWVQIBL NAIL, 6 OR MORE 03/14/2014 39818-DWWDSKV NAIL, 6 OR MORE 06/20/2014 33755-OQQMRYP NAIL, 6 OR MORE 08/23/2014 37087-ERHNDJV NAIL, 6 OR MORE 11/22/2014 65242-DJKGDOF NAIL, 6 OR MORE 02/13/2015 93408-UWBZVJR NAIL, 6 OR MORE 05/15/2015 49193-VCVSCXI NAIL, 6 OR MORE 08/12/2015 48769-ETKRSAL NAIL, 6 OR MORE 11/11/2015 33598-MVEDTGP NAIL, 6 OR MORE 02/19/2016 58833-TSGTDTQ NAIL, 6 OR MORE 05/21/2016 07159-KBBECWZ NAIL, 6 OR MORE 10/05/2016 55503-KFMQHPY NAIL, 6 OR MORE 01/11/2017 79076-EJHFPPN NAIL, 6 OR MORE 04/12/2017 16164-VLHHDFW NAIL, 6 OR MORE 09/16/2017 92223-YWSREIN NAIL, 6 OR MORE 12/16/2017 51304-OSMYOSR NAIL, 6 OR MORE 03/17/2018 00883-BXYZUUN NAIL, 6 OR MORE 07/14/2018 45416-RQYSIQM NAIL, 6 OR MORE 01/16/2019 48616-JTWECZS NAIL, 6 OR MORE 08/17/2019 13388-EGQJRMT NAIL, 6 OR MORE 11/20/2019 23157-MPITPPR NAIL, 6 OR MORE 03/07/2020 60885-DMXHLHV NAIL, 6 OR MORE 06/06/2020 43879-RETUPGI NAIL, 6 OR MORE 09/12/2020 54982-PXGTYTV NAIL, 6 OR MORE 12/26/2020 26910-FTERHDA NAIL, 6 OR MORE 04/07/2021 31234-UFPNRPO NAIL, 6 OR MORE 07/07/2021 91377-UIDBFGH NAIL, 6 OR MORE 10/13/2021 86526-CNVROCV NAIL, 6 OR MORE 01/12/2022 79053-FHWQSAG NAIL, 6 OR MORE 06/04/2022 14841-POWECYS NAIL, 6 OR MORE 08/24/2022 12027-KWOYQDI NAIL, 6 OR MORE 11/19/2022 19740-QBKVAQD NAIL, 6 OR MORE 02/08/2023 22712-CPACSSH NAIL, 6 OR MORE 05/20/2023 17882-FGYSFTA NAIL, 6 OR MORE 09/16/2023 50731-CZFCQAO NAIL, 6 OR MORE 01/24/2024 99259-Vpjgaoui Plate 01/24/2024 50411-Tcusydnp Plate 08/24/2022 35003-Vcfdeuzh Plate 10/13/2021 27949-Luuolwiz Plate 07/07/2021 81065-Hxspuwru Plate 11/22/2014 78152-Atiznsyy Plate 08/23/2014 45629-Gcphnxmh Plate 06/20/2014 53121-Mafjlfwh Plate 03/14/2014 91200-Zkydznaa Plate 12/07/2013 54755-Tpkdejlm Plate 09/20/2013 04603-Fftmdbks Plate 06/21/2013 51924-Mjashhyz Plate Each Additional 37827-Tdnwnqvj Plate Each Additional 10/2021 50545, J0702- INJECT or DRAIN, JOINT/BUR SA 06/06/2020 10418-CGSQ SKIN LESIONS, OVER 4 07/08/19 40161-YVSA SKIN LESIONS, OVER 4 04/07/19 66502-XUUG SKIN LESIONS, OVER 4 12/27/19 21 63763-EZFA SKIN LESIONS, OVER 4 10/14/19 08439-VKFM SKIN LESIONS, OVER 4 01/13/20 34994-RHXB SKIN LESIONS, OVER 4 08/25/19 18824-BMYR SKIN LESIONS, OVER 4 06/05/19 15187-ACTP SKIN LESIONS, OVER 4 09/16/19 24 12404-OTMV SKIN LESIONS, OVER 4 05/20/19 47710-BTHZ SKIN LESIONS, OVER 4 02/09/20 98795-NRAC SKIN LESIONS, OVER 4 11/20/19 23 18007-QFCK SKIN LESIONS, OVER 4 01/24/20 24 44056-MJOI SKIN LESIONS, 2 TO 4 06/07/19 68962-WTTZ SKIN LESIONS, 2 TO 4 09/13/19 21 17898-MPJQ SKIN LESIONS, 2 TO 4 03/07/19 21 88909-JWSR SKIN LESIONS, 2 TO 4 11/20/19 20 04527-ROSG SKIN LESIONS, 2 TO 4 08/17/19 35689-OXHV SKIN LESIONS, 2 TO 4 01/17/20 19 50423-DMIA SKIN LESIONS, 2 TO 4 07/15/19 19 32168-PMKA SKIN LESIONS, 2 TO 4 03/17/19 19 44105-DTNN SKIN LESIONS, 2 TO 4 12/17/19 18 41730-FTHV SKIN LESIONS, 2 TO 4 09/17/19 18 51276-RPWY SKIN LESIONS, 2 TO 4 01/12/20 17 94737-KZWI SKIN LESIONS, 2 TO 4 04/12/19 18 12705-XVQR SKIN LESIONS, 2 TO 4 06/22/19 14 04748-MTEZ SKIN LESIONS, 2 TO 4 09/21/19 14 86418-CXZC SKIN LESIONS, 2 TO 4 12/08/19 14 36602-JKBI SKIN LESIONS, 2 TO 4 03/23/19 14 53413-IVRQ SKIN LESIONS, 2 TO 4 10/04/19 13 64134-MFKK SKIN LESIONS, 2 TO 4 07/12/19 13 20918-VVEL SKIN LESIONS, 2 TO 4 03/14/19 15 06585-WIMC SKIN LESIONS, 2 TO 4 06/21/19 15 53576-LLXJ SKIN LESION 05/21/2016 83953-CAUQ SKIN LESION 10/05/2016 Next Appt Details Provider Name:Matilda Gonzalez , 05/01/2024 01:30:00 PM, [address] [place], [address], Insurance Providers Payer Name Payer Address Payer Phone Subscriber Number Group Number Insured Name Patient Relationship to Insured Coverage Start Date Coverage End Date Medicare [employer] [address] [place] [address] [id number] Matty Mejia Self - patient is the insured Medical (General) History Medical History History ICD Code anxiety depression diabetic headaches/migraines high blood pressure psychiatric disorder reflux chicken pox Surgical History Surgery Date(Month/Year) Hospitalization History Reason Date(Month/Year) bad hip [facility] [place] 10/31/2023 [facility]- pt cant remember overnight sleep study 12/2014
--- OUTSIDE RECORDS SUMMARY | 2024-05-01 11:43 | XMS_ITS ---
Author Organization [facility] Address [address] [place] [address] Care Team Providers Care Director Of Instruction Name Role Phone Pao ZHANG, Rowena Garrido Primary Care Provider Un available Carlos Matilda Unavailable [phone] Encounters Encounter Location Date Provider Diagnosis [address] [address] 12/27/2023 Matilda Gonzalez Plan Of Treatment Next Appt Details Provider Name:Matilda Gonzalez , 05/01/2024 01:30:00 PM, [address] [place] [address], [phone], Progress Notes * Matty MCGEEDOB:[birth year] (44 yo M)Acc No.[id number]:12/27/2023 Progress Note Patient:?VARGAS Ludwig o Provider:?Matilda Gonzalez DPM :1980???Age:43 Y???Sex:Male Christo e:12/27/2023 Address: [address], [place] Pcp:Antonella Swan Subjective: * Chief Complaints: * ??? * Medical History:? Objective: * Vitals:? Assessment: Plan: * Treatment: * Images: * The named appointment provid er may or may not be the originator of this progress note, and it is not deemed complete until electronically signed by the appointment provider. Sign off status: Pending * Provider:?Matilda Gonzalez DPM Date:?2023 Generated for Rukhsana melton/Sylvia/Hans on:?05/01/2024 11:42 AM EST
== END 2024-05-01 10:27 | disposition home or self-care (01) ==
PROVIDERS: PCP Internal Medicine; Visit Provider Internal Medicine Hypertension Specialist
DX: N18.30 Chronic kidney disease, stage 3 unspecified (principal)
CPT/HCPCS: 99214

== ENCOUNTER → 2024-05-01 10:10 | Outpatient (BNVA) | payer MEDICARE, MEDICAID, SELFPAY | PROVIDERS: PCP Internal Medicine; Visit Provider Internal Medicine Hypertension Specialist | DX: N18.30 Chronic kidney disease, stage 3 unspecified (principal) | CPT/HCPCS: 99212 ==

== ENCOUNTER 2024-05-23 11:37 | Outpatient (REF) | payer MEDICARE, MEDICAID, SELFPAY ==
[2024-05-23 13:22] LABS: MANUAL DIFF FLAG NO
[2024-05-23 13:31] LABS: Basophils Percent Auto 0.1 % (0-2); Eosinophils Percent Auto 0.1 % (0-4); Hematocrit 45.1 % (42.0-52.0); Hemoglobin 15.8 g/dl (14.0-18.0); Imm Gran Abs Auto 0.04 X10*3/uL (0.00-0.03); Imm Gran Pct Auto 0.5 % (0.0-0.4); Lymphocytes Absolute Auto 2.3 X10*3/uL (1.2-4.9); Lymphocytes Percent Auto 27.4 % (20-40); Mean Corpuscular Hemoglobin 28.4 pg (27.0-33.0); Mean Corpuscular Volume 81.1 fL (80.0-98.0); Mean Platelet Volume 9.8 fL (9.4-12.4); Monocytes Absolute Auto 0.7 X10*3/uL (0.1-1.2); Monocytes Percent Auto 8.3 % (2-11); Neutrophils Absolute Auto 5.4 x10*3/uL (2.0-8.3); Neutrophils Percent Auto 63.6 % (45-73); Platelet Count 217 X10*3/uL (160-400); Red Blood Count 5.56 X10*6/uL (4.60-5.80); Red Cell Distribution Width 14.9 % (11.0-16.0); White Blood Count 8.4 X10*3/uL (4.8-10.8)
== END 2024-05-23 11:38 | disposition home or self-care (01) ==
LOC: HO.HMGCLR 11:37
PROVIDERS: Visit Provider Clinical Nurse Specialist Psychiatric/Mental Health, Adult
DX: Z79.899 Other long term (current) drug therapy (principal)
CPT/HCPCS: 36415; 85025

== ENCOUNTER 2024-06-11 08:19 | Emergency (ER) | payer MEDICARE, MEDICAID, SELFPAY ==
--- NOTE | ~2024-06-11 | CT_ITS ---
CLINICAL HISTORY: L inguinal hip pain ?hernia CT abdomen and pelvis without contrast Comparison: CT/SR - CT HIP RT WO IV CON - 12/04/23 10:[address]/[place]/SR - CT ABDOMEN PELVIS WO IV CON - 12/01/23 16:42 EDT Findings: No consolidation or effusion. The liver, gallbladder, spleen, adrenal glands and pancreas are stable. Small unchanged left adrenal nodule. Kidneys, and ureters are within normal limits. Mild prominence related to significantly distended bladder. Normal appendix. There is an abnormal segment of small bowel with questioned partial intussusception and dilation proximal to this, axial images 51 -67. No pneumatosis, free air, free fluid or abscess. There does remain stool within the colon. Mild atherosclerotic disease. Very small fat containing left inguinal hernia. No acute osseous findings. Impression: Questioned partial intussusception involving small bowel within the left lower quadrant with mild dilation of the small bowel proximal to this. Early or partial obstruction is possible and follow-up with GI and/or repeat study with oral contrast could be considered. Otherwise incidental findings. This document has been electronically signed by: Paulo Macario MD on 06/11/2024 10:37:25
--- NOTE | ~2024-06-11 | CT_ITS ---
CLINICAL HISTORY: LLQ pain, ?Intussusception CT ABDOMEN AND PELVIS WITHOUT CONTRAST Comparison: None Findings: No consolidation or effusion. There are no acute abnormalities in the unenhanced solid organs. No renal or ureteral calculus. Mild fatty infiltration of the liver. Partly contracted gallbladder with no large calcified stone. No AAA. No bowel obstruction, pneumoperitoneum, or pneumatosis. Contrast opacifies the stomach and multiple proximal to mid small bowel loops. There is no evidence for an intussusception. No significant mucosal, mesenteric or paracolic edema. Pelvic contents unremarkable. Normal appendix. No acute fracture. IMPRESSION: No obstructive or acute inflammatory changes in the gastrointestinal and genitourinary tracts. This document has been electronically signed by: Griselda Roman DO on 06/11/2024 15:49:02
--- NOTE | ~2024-06-11 | XR_ITS ---
CLINICAL HISTORY: atraumatic left hip pain Exam: AP pelvis with AP and frog-leg lateral views of the left hip. Comparison: CT of the pelvis December 01, 2023. Findings: Bony alignment of the hip joints is anatomic. No fracture or erosion. Minimal to mild degenerative change of both hip joints. Impression: No acute findings. This document has been electronically signed by: Juvenal Pizarro MD on 06/11/2024 09:29:39
[2024-06-11 08:23] VITALS: BP 141/85; BP 160/104; PULSE 100; PULSE 113; RESP 19; TEMP 36.6; O2SAT 98; BMI 33.5
--- NOTE | 2024-06-11 08:36 | PC.NURSE ---
L groin area with skin intact, PWD; no palpable masses; pt reports pain mostly when ambulating; + DP pulses bilaterally; pt denies known injury; denies testicular pain; report urinary frequency over the last 2 days
[2024-06-11 08:38] LABS: Glucose, Whole Blood 223 mg/dL (60-115)
[2024-06-11 08:46] LABS: Appearance Urine Clear; Color Urine Yellow; Glucose Urine UA >=1000 mg/dL (Negative); Leukocyte Esterase Urine Negative (Negative); Nitrite Urine Negative (Negative); PH 6.5 (5.0-9.0); Specific Gravity - Urine <= 1.005 (1.005-1.025); UMIC TRIGGER UACC YES; Urine Blood Trace (Negative); Urine Ketones Negative (Negative); Urine Protein Negative (Neg-Trace)
--- OUTSIDE RECORDS SUMMARY | 2024-06-11 08:47 | XMS_ITS ---
Author Organization [facility] Address [address] [place] [address] Care Team Providers Care Daytime Caregiver Name Role Phone Pao ZHANG, Rowena Garrido Primary Care Provider Un available Carlos Matilda Unavailable [phone] Encounters Encounter Location Date Provider Diagnosis [address] [address] 12/27/2023 Matilda Gonzalez Plan Of Treatment Next Appt Details Provider Name:Matilda Gonzalez , 08/07/2024 01:30:00 PM, [address] [place] [address], [phone], Progress Notes * Matty MCGEEDOB:[birth year] (44 yo M)Acc No.[id number]:12/27/2023 Progress Note Patient:?VARGAS Ludwig o Provider:?Matilda Gonzalez DPM :1980???Age:43 Y???Sex:Male Christo e:12/27/2023 Address: [address], [place] Pcp:Antonella Swan Subjective: * Chief Complaints: * ??? * Medical History:? Objective: * Vitals:? Assessment: Plan: * Treatment: * Images: * The named appointment provid er may or may not be the originator of this progress note, and it is not deemed complete until electronically signed by the appointment provider. Sign off status: Pending * Provider:Diogenes Gonzalez DPM Date:?2023 Generated for Rukhsana melton/Sylvia/Hans on:?06/11/2024 08:47 AM EDT
--- OUTSIDE RECORDS SUMMARY | 2024-06-11 08:47 | XMS_ITS ---
Author Organization [facility] [place] Address [address] [facility] [place] [address] Care Team Providers Care Manager Employee Relations Name Role Phone Pao ZHANG, Rowena Garrido Primary Care Provider Un available Black, Matilda Unavailable [phone] Allergies No Known Allergies REASON FOR VISIT At Risk Footcare, Toe Irritation Medications Medication SIG (Take, Route, Frequency, Duration) Notes Start Date End Date Status Hydrocortisone 2.5 % as directed Externa lly to feet Twice a day for 30 days Not-Taking Tricor 145 MG 1 tablet Orally Once a day for 30 day(s) Not-Taking Invokana Not-Taking metFORMIN HCl Not-Ta hola Vascepa Not-Taking PriLOSEC 20 MG 1 capsule Orally Onc e a day for 30 day(s) Not-Taking [place] Carbonate 600 MG as directed Ora lly Twice a day Not-Taking Losartan Potassium 25 MG 1 tablet Orally Once a day Not-Taking Cleocin-T 1 % 1 application to affected area Externally Twice a day Not-Takin g Benadryl Not-Taking Glucophage 1000 MG 1 tablet with meals Orally Twice a day for 30 day(s) Not-Taking PriLOSEC Not-Taking Gemfibrozil 600 MG as directed Orally Twice a day Not-Taking Fish Oil Not-Taking HumuLIN 70/30 (70-30) 100 UNIT/ML as directed Subcutaneous Not-Taking Extra Depth Orthopedic Shoes (1 Pair) with Customized Heat Molded Multidensity Innersoles (3 Pair) as directed Dx: IDDM/Polyneuropathy (E10.42), Hammertoe Foot Deformity (M20.41,M20.42), Preulcerative Skin Lesion(s) (L85.1) 03/31/2022 Active Tylenol Not-Taking Fenofibrate 160 MG as directed Active Vitamin D Not-Taking Lantus Not-Taking Haldol Active Ativan 1 MG as directed Active Cozaar 25 MG 1 tablet Orally Once a day Active Clozaril 200 MG 1 tablet Orally Once a day Active Jardiance 25 MG 1 tablet Once a day Active Colace 100 MG 1 capsule as needed Orally Once a day for 30 day(s) Active [place] 3 Active Trulicity Active traZODone HCl Active hydrOXYzine HCl 25 MG as directed Orally Active Anoro Ellipta 62.5-25 MCG/ACT 1 puff Inhalation Once a day Active Flonase Active Tresiba 100 UNIT/ML as directed Subcutaneous Active Omeprazole 20 MG 1 capsule 30 minutes before morning meal Orally Once a day Active Rosuvastatin Calcium 5 MG 1 tablet Orall y Once a day Active Albuterol Sulfate Ac tive Ozempic Active Extra Depth Orthopedic Shoes (1 Pair) with Customized Heat Molded Multidensity Innersoles (3 Pair) as directed Dx: NIDDM/Polyneuropathy (E11.42), Hammertoe Foot Deformity (M20.41,M20.42), Preulcerative Skin Lesion(s) (L85.1 05/01/2024 Active Social History Tobacco Use: Social History Observation Description Date Details (start date - stop date) Current Smoker 05/02/1991 - NA Tobacco use other than smoking: Question Answer Notes Are you an other tobacco user? No Tobacco Control (Standard) Question Answer Notes Tobacco use: Current smoker When did you start smoking? 05/02/1991 How often do you smoke cigarettes? Every day How many cigarettes a day do you smoke? 6-10 How soon after you wake up d o you smoke your first cigarette? 6-30 minutes Are you interested in quitting? Not ready to giselle t Additional Findings: Tobacco user Modera te cigarette smoker (10-19 cigs/day) AUDIT-C (Standard) Question Answer Notes Did you have a drink containing alcohol in the p ast year? No Points 0 Interpretation Negative Vital Signs Blood pressure systolic 140 mm Hg 05/02/19 25 Blood pressure diastolic 80 mm Hg 025 Height 5ft 8in in 05/01/2024 Weight 219 lbs 05/01/2024 BMI 33.3 kg/m2 05/01/2024 Procedures Procedure Date Ordered Date Performed Result Body Sit e 28340-EWBQLVV NAIL, 6 OR MORE 05/01/2024 N/A 81125-TIFY SKIN LESIONS, OVER 4 05/01/2024 N/A Encounters Encounter Location Date Provider Diagnosis [facility] [address] [place] [address] 05/01/2024 Matilda Gonzalez Type 1 diabetes mellitus with diabetic polyneuropathy E10.42 ; Other hammer toe(s) (acquired), right foot M20.41 ; Tinea unguium B35.1 and Other hammer toe(s) (acquired), left foot M20.42 Assessments Encounter Date Diagnosis (ICD Code) Assessment Notes Treatment Notes Treatment Clinical Notes Section Notes 05/01/2024 Type 1 diabetes mellitus with diabetic polyneuropathy (ICD-10 - E10.42) 05/01/2024 Other hammer toe(s) (acquired), right foot (ICD-10 - M20.41) Patient Educated with: DIABETIC FOOT CARE INSTRUCTIONS. pdf (DIABETIC FOOT CARE INSTRUCTIONS. pdf) 05/01/2024 Tinea unguium (ICD-10 - B35.1) 05/01/2024 Other hammer toe(s) (acquired), left foot (ICD-10 - M20.42) Plan Of Treatment Medication Medication Name Sig Start Date Stop Date Notes Extra Depth Orthopedic Shoes (1 Pair) with Customized Heat Molded Multidensity Innersoles (3 Pair) as directed Dx: NIDDM/Polyneuropathy (E11.42), Hammertoe Foot Deformity (M20.41,M20.42), Preulcerative Skin Lesion(s) (L85.1 05/01/2024 Treatment Notes Assessment Notes Other hammer toe(s) (acquired), right fo ot Patient Educated with: DIABETIC FOOT CARE INSTRUCTIONS.pdf (DIABETIC FOOT CARE INSTRUCTIONS.pdf) Pending Test Test Name Order Date [id number]-JGJEKNF NAIL, 6 OR MORE 05/01/2024 40065-KCBP SKIN LESIONS, OVER 4 05/02/19 25 Next Appt Details Follow Up: 3 Months, Reason: Provider Name:Matilda Gonzalez , 08/07/2024 01:30:00 PM, [address] [place], [address], Procedure Notes * Category Sub-Category Detail Notes Debride Nail 6-10 Nail debridement Due to the cl inical pathology outlined in the exam findings, performance of this nail treatment is medically necessary as its management by an unskilled/untrained nonprofessional would put this patients foot and overall health at risk. Therefore, debridement to affected nail(s), as described in exam ( TA, T1, T2, T3, T4, T5, T6, T7, T8, T9, ), was performed exclusively by the physician of record to reduce/remove overall nail length, girth, thickness, subungual debris, and necrotic tissue, by manual and/or electrical means through the use of a nail nipper and/or dremel-type disk grinder, to a more viable healthy nail [...] to maintain effectiveness in symptomatic relief - 22480 Keratoma Treatment Parring or Cutting o f Benign Hyperkeratotic Lesion(s) (-57) More than 4 Lesions - Due to the at risk nature of the patients medical condition as documented in the exam findings, performance of this keratoderma treatment is medically necessary as its management by an unskilled/untrained nonprofessional would put this patients foot and overall health at risk. Therefore, the benign hyperkeratotic lesions, ( 5 ) in total, locations as stated and described in the exam ( SUB MTH (s),1,B/L Plantar Heel(s), s),Left ,, SUB MTH (s), 5 , B/L ), were pared, and/or cut utilizing a sterile 15 blade, tissue nippers, and/or power dremel instrumentation by the physician of record - 54506 Progress Notes * Opal MCGEEB:[birth year] (44 yo M)Acc No.[id number]:05/01/2024 Progress Note Patient:?VARGASLudwig Provider:?Matilda Gonzalez DPM :1980???Age:44 Y???Sex:Male Christo e:05/01/2024 Address: [address], [id number] Pcp:Antonella Swan Subjective: * Chief Complaints: * ???At Risk FootcareToe Irrit ation * HPI: ???At Risk footcare:?Pt States Last PCP Visit:?Date?05/19/2023 ???Toe pain:?Location:?B/L feet.?Duration:?several years.?Course:?worse.?Aggravated by:?shoes, any pressure.?Treatments:?change in shoes.? * ROS:?General/Constitutional:?Nausea?denies.?Vomiting?denies.?Hunger Thirst?denies.?Loss appetite?denies.?Chills?denies.?Fatigue?denies.?Fever?denies.?Night Sweats?denies.?Unexplained weight loss?denies.?Unexplained weight gain?denies.?HEENTM:?Dentures?denies.?Dizziness?denies.?Glasses/contacts?denies.?Retinopathy?den ies.?Blurred/double vision?denies.?TMJ?denies.?Discharge/drainage?denies.?Implants?denies.?Sore throat?denies.?Dental implants?denies.?Hard of hearing ?denies.?Difficulty chewing/swallowing/speaking?denies.?Nose bleeds?denies.?Sore mouth?denies.?Respiratory:?On O xygen?denies.?Pneumonia/pleurisy?denies.?Bronchitis?denies.?Emphysema?denies.?Co ughing?denies.?Cough blood?denies.?Shortness of breath?denies.?Wheezing?denies.?Cardiovascular:?Pacemaker?denies.?MVP?denies.?WPW?denies.?CHF?denies.?Heart attack?denies.?Septal defect?denies.?Rapid beat?denies.?Chest pain ?denies.?Atrial Fib.?denies.?Murmur/Palpitations?denies.?Gastrointestinal:?Hemorrhoids?denies.?Stomach/Abdominal pain?denies.?Dark blood stool?denies.?Irritable bowel ?denies.?Constipation?denies.?Diarrhea?denies.?Hematology:?Swelling?denies.?Clots?denies.?Varicose Veins?denies.?Bruising?denies.?Bleeding problem?denies.?Genitourinary:?Blood urine?denies.?Frequent/Painfu/urination/bladder control?denies.?Kidney stones?denies.?Infection (UTI)?denies.?Nephropathy?denies.?sex trans dis (STD)?denies.?Prostate?denies.?Musculoskeletal:?Hammertoes?denies.?Bunions?denies.?Back Pain?denies.?Muscle Cramps/ Resting?denies.?Muscle cramps / walking?denies.?Generalized aches and pains?denies.?Weakness?denies.?Integ.:?Lowery?denies.?Scars?denies.?Corns/calluses?admits.?Ingrown nails?, admits.?Painful nails?denies.?Open Sores?denies.?Rashes?denies.?Neurologic:?Difficulty sleeping?denies.?Brain disorder?denies.?Numbness?admits.?Balance t rouble?denies.?Confusion?denies.?Fainting/blackouts?denies.?Tingling?admits.?Frandy mors?denies.? * Medical History:? * Surgical History:?Denies Pas t Surgical History * Hospitalization/Major Diagno stic Procedure:?overnight sleep study 12/2014[facility] [place]- pt cant remember bad hip [facility] 10/31/2023 * Family History:?Mother: dece ased.?Father: alive, , poor circulation, diagnosed with Diabetic - NIDDM, Other specified conditions influencing health status.? * Social History:?Tobacco Use:?Tobacco use other than smoking?Are you an other tobacco user??No ?Tobacco Control (Standard)?Tobacco use:?Current smoker ?When did you start smoking??05/02/1991 ?How often do you smoke cigarettes??Every day ?How many cigarettes a day do you smoke??6-10 ?How soon after you wake up do you smoke your first cigarette??6-30 minutes ?Are you interested in quitting??Not ready to quit ?Additional Findings: Tobacco user?Moderate cigarette smoker (10-19 cigs/day) ???Drugs/Alcohol:?Drugs?Have you used drugs other than those for medical reasons in the past 12 months??No ???Miscellaneous:?Caffeine: yes, frequency:, 2-3 cups per day. ?Children: no. ?Exercise: yes, limited- weight lifting. ?Marital status: single. ?Occupation: disabled. ???Drug/Alcohol:?AUDIT-C (Standard)?Did you have a drink containing alcohol in the past year??No ?Points?0 ?Interpretation?Negative * Medications:?TakingOzempic A lbuterol Sulfate Flonase Anoro Ellipta 62.5-25 MCG/ACT Aerosol Powder Breath Activated 1 puff Inhalation Once a day Tresiba 100 UNIT/ML Solution as directed Subcutaneous Rosuvastatin Calcium 5 MG Tablet 1 tablet Orally Once a day Omeprazole 20 MG Capsule Delayed Release 1 capsule 30 minutes before morning meal Orally Once a day Trulicity [place] 3 hydrOXYzine HCl 25 MG Tablet as [...] Orally Once a day Taking Trulicity Taking [place] 3 Taking hydrOXYzine HCl 25 MG Tablet [...] UNIT/ML Suspension as directed Subcutaneous Fish Oil [place] Carbonate 600 MG Capsule as directed Orally [...] as directed Subcutaneous Not-Taking/PRN Fish Oil Not-Taking/PRN [place] Carbonate 600 MG Capsule as directed Orally [...] reviewed and reconciled with the patient * Allergies:?N.K.D.A.yes[Jennifer jackman Verified] Objective: * Vitals:?Ht:5ft 8in, Wt:219, BMI:33.3, Shoe size:9.5-11, BP:140/80mm Hg, BS:190, Ht-cm: 172.72 cm, Wt-k.34 kg. * ???Past Orders: ???Lab:HEMOGLOBIN A1C (GLYCO HEMOGLOBIN) (Order Date - 01/24/2024) (Collection Date & Time - 01/24/2024 11:37 AM) ? Value Reference Range ?HEMOGLOBIN A1C % (HH) 8.2 * Examination: ???Ophthalmology Referral: ?DIABETES EYE EXAM?Procedure Performed:?Yes ?Date of Exam Performed?03/03/2024 ?Diabetic Retinopathy Screening:?Yes ?Retinal Screening Performed:?Yes ?Findings of Diabetic Eye Exam:?no retinopathy?General Examination: ?GENERAL APPEARANCE:?Reveals a pleasant, alert, well [...] ?Pedal pulse taking performed:?2+ ?Footwear Evaluation?Footwear Evaluation performed:?Yes?Nails: ?NAILS are:?Elongated, overgrown, dystrophic, lytic, greater than 3mm thick, discolored and friable with crumbly malodorous subungual debris, TA, T1, T2, T3, T4, T5, T6, T7, T8, T9.?Neurological: ?SENSORY:?Neurological exam demonstrates reduced sharp/dull pin prick discrimination reduced light touch sensation reduced vibration sensation reduced proprioception sensation in a stocking fashion 5.07 monofilament test performed at plantar aspects of 5 varied sites per foot shows sensation plantar aspects absent at Forefoot B/L, Pt relates, burning, especially in the evening, B/L.?Dermatologic: ?SKIN FINDINGS:?Skin exam reveals Keratotic lesion(s) located at SUB MTH (s),1,B/L?Plantar Heel(s), s),Left ,, SUB MTH (s), 5 , B/L.?Orthopedic: ?DIGITAL DEFORMITIES:?Digital contracture, PIPJ, 2-5 B/L, incompl-reducible to push-up test, no over, nor underlapping,?there is?evidence of shoe producing skin irritation.?FOOTWEAR:?Non-Diabetic with no OT , worn, non-supportive, shoe gear properties exacerbate patient's foot/toe deformity.?Vascular: ?DP PULSES (B):?2/4, B/L.?PT PULSES (B):?2/4, B/L.?CAPILLARY FILL TIME:?immediate, all digits, B/L.?TROPHIC CONDITION-TEXTURE/ELASTICITY/TURGOR/HAIR GROWTH (B):?normal, B/L.?TEMPERTURE GRADIENT (C):?normal, warm to cool, proximal to distal, B/L, B/L.?PIGMENTATION:?normal, B/L.? Assessment: * Assessment: 1.?Other hammer toe(s) (acqu ired), right foot - M20.41 (Primary)???Specify :Chronic problem, Worse (4),Rx Management (4)???2.?Type 1 diabetes mellitus with diabetic polyneuropathy - E10.42???3.?Tinea unguium - B35.1???4.?Other hammer toe(s) (acquired), left foot - M20.42???Specify :Chronic problem, Worse (4),Rx Management (4)??? Plan: * Treatment: 2.?Type 1 diabetes mellitus with diabetic polyneuropathy?Procedure: 60999-RCEG SKIN LESIONS, OVER 4 3.?Tinea unguium?Procedure: 73913-WJDQJZN NAIL, 6 OR MORE * Procedures:?Debride Nail 6-10:?Nail debridement?Due to the clinical pathology outlined in the exam findings, performance of this nail treatment is medically necessary as its management by an unskilled/untrained nonprofessional would put this patients foot and overall health at risk. Therefore, debridement to affected nail(s), as described in exam ( TA, T1, T2, T3, T4, T5, T6, T7, T8, T9, ), was performed exclusively by the physician of record to reduce/remove overall nail length, girth, thickness, subungual debris, and necrotic tissue, by manual and/or electrical means through the use of a nail nipper and/or dremel-type disk grinder, to a more viable healthy nail plate or bed tissue 6- 10 nails in total. Silver nitrate was used for any petechial bleeding as necessary. Definitive antifungal treatment options, both pharmaceutical and surgical, have been reviewed and discussed with the patient. The patient solely prefers the use of intermittent/as needed professional debridement services for their nail condition and understands the need for additional periodic treatments to maintain effectiveness in symptomatic relief - 24729.?Keratoma Treatment:?Parring or Cutting of Benign Hyperkeratotic Lesion(s)?(-57) More than 4 Lesions - Due to the at risk nature of the patients medical condition as documented in the exam findings, performance of this keratoderma treatment is medically necessary as its management by an unskilled/untrained nonprofessional would put this patients foot and overall health at risk. Therefore, the benign hyperkeratotic lesions, ( 5 ) in total, locations as stated and described in the exam ( SUB MTH (s),1,B/L Plantar Heel(s), s),Left ,, SUB MTH (s), 5 , B/L ), were pared, and/or cut utilizing a sterile 15 blade, tissue nippers, and/or power dremel instrumentation by the physician of record - 46027.? * Procedure Codes:?05652 DEBRI DE NAIL, 6 OR MORE, Modifiers: XS 36782 TRIM SKIN LESIONS, OVER 4, Modifiers: XS 3052F HG A1C>EQUAL 8.0%<EQUAL 9.0% * Preventive Medicine:? ??Counseling:?Tobacco use:?Type of Tobacco Use Cessation Counseling provided?Smoking cessation education ?Patient counseled on the dangers of smoking and urged to quit:?05/01/2024 ?Discussion:?-14: Office or other outpatient visit for the evaluation and management of an established patient, which required a medically appropriate history and/or examination and MODERATE level of DECISION MAKING for: 1 OR MORE CHRONIC PROBLEM(S) THATS WORSENING, 2 STABLE CHRONIC PROBLEMS, A NEWLY DIAGNOSED PROBLEM WITH UNCERTAIN PROGNOSIS, AN ACUTE COMPLICATED INJURY WITH MULTIPLE TREATMENT OPTIONS, OR AN ACUTE PROBLEM WITH ACCOMPANYING SYSTEMIC SYMPTOMS, THAT POSE(S) A MODERATE RISK OF MORBIDITY. THIS CONDITION MAY ALSO INCLUDE RX DRUG MANAGEMENT, OR A DECISON FOR MINOR SURGERY. The visit on the day of the encounter encompassed interpreting the data and educating the patient as to the nature of their condition, treatment options available according to their individual PMH, meds, allergies, and overall health/living conditions, as well as any potential risks or complications that may occur from a failure to adhere to, and participate in, the recommended course of therapy. The discussion included a complete verbal, and/or written explanation of the examination results, any x-rays taken, the proposed diagnosis, and outline of the treatment plan. A schedule for future care needs was also explained. The patient verbalized an understanding of the instructions at this time and agreed to be an active participant in their treatment. If the patient should think of any questions or concerns after the visit, I have encouraged the patient to call the office.?Digital Surgery:?We elected to try conservative treatment at the present time.?Digital Treatment:?HT- I explained to the patient the possible etiologies of Hammertoes, including genetics/foot type/shoegear/activity level/exercise routine and the risks/benefits of all the different treatment options for their pain including: No treatment at all, Rest, Ice, New/supportive/wider/deeper Shoe gear, Digital Padding/Strapping/Taping/Bracing/Gel protective sleeves, Foot/Ankle AFO Bracing, Stretching exercises, Deep Tissue Massage, Arch support/shoe inserts with splay metatarsal padding, and Custom orthoses. I insisted that any digital devices be removed daily and not worn overnight for safety. The patient is to carefully examine the toes daily for any skin irritation while using any splinting or padding device. The advantages and disadvantages of each option were discussed and the patients questions re: shoe gear, padding, custom vs prefabricated inserts, activity level, and consistency in home treatment regimens for optimal success were answered to their verbally confirmed satisfaction, Recomm, rest, ice, proper shoegear, padding, orthotics, anti-inflammatories or tylenol as tolerated, topical analgesics, cortisone injections.?Shoe Gear Counseling:?SHOE Rx - The patient was counseled in great detail on their muscoloskeletal foot and toe deformities which coincided with the dermatological presentations visualized on exam. We discussed how their deformities put the integrity of their feet at risk for potential pedal complications which makes the accomidative diabetic shoes and cutomizable inserts medically necessary. We discussed the different shoe and insert treatment types and options, as well as the important advantages for adhering to regularly wearing these accomidative devices daily. The patient was made aware of the fact that a failure to abide by these recommedations may be deleterious to their foot health as they are able to prevent many pedal complications such as skin irritation, skin ulceration, infection, and even loss of toe/foot/leg/or life. Time was also spent with the patient dispensing and discussing proper diabetic footcare techniques including daily skin moisturization, daily foot inspection for any interruption in skin integrity including open lesions, or sign of infection such as redness/malodor/drainage/swelling. Also discussed and recommended were procedures regarding daily shoe inspection for the presence of internal foreign bodies as well as any visualized irregular shoe or insert wear. Patient questions re: shoes, inserts, and self foot inspections were answered to their satisfaction as the patient verbally confirmed a full understanding of the above information. A Rx for Extra Depth Orthopedic Shoes with 3 pair of custom heat-molded inserts was dispensed.? ??Screening/Special Tests:?Fall Risk?Screening:?No falls in the past year ?FALLS: Screening for Future Fall Risk?Have you had any falls with injury in the past year??No * Follow Up:?3 Months * Images: * Sign off status: Completed true * Provider:?Matilda Gonzalez DPM Date:?2024 Generated for Rukhsana melton/Sylvia/Hans on:?06/11/2024 08:47 AM EDT History and Physical Notes * HPI (History of Present Illness) Category Sub-Category Detail Notes Category Not es Toe pain Location: B/L feet Duration: several years Course: worse Aggravated by: shoes, any pressure Treatments: change in shoes At Risk footcare Pt States Last PCP Visit: Date: 4 Examination Category Sub-Category Detail Notes Category Not es Ingrown Nail INSPECTION: Neurological SENSORY: Neurological exa m demonstrates reduced sharp/dull pin prick discrimination reduced light touch sensation reduced vibration sensation reduced proprioception sensation in a stocking fashion 5.07 monofilament test performed at plantar aspects of 5 varied sites per foot shows sensation plantar aspects absent at Forefoot B/L, Pt relates, burning, especially in the evening, B/L Dermatologic SKIN FINDINGS: Skin exam reveal s Keratotic lesion(s) located at SUB MTH (s),1,B/L Plantar Heel(s), s),Left ,, SUB MTH (s), 5 , B/L Orthopedic FOOTWEAR EVALUATION: Non-Diabeti c with no OT , worn, non-supportive, shoe gear properties exacerbate patient's foot/toe deformity DIGITAL DEFORMITIES: Digital contracture , PIPJ, 2-5 B/L, incompl-reducible to push-up test, no over, nor underlapping, there is evidence of shoe producing skin irritation General Examination GENERAL APPEARANCE: Reveals a pleasant, [...] d:: Yes Ophthalmology Referral DIABETES EYE EXAM Procedure Perform ed:: Yes ?Date of Exam Performed: 03/03/2024 Diabetic Retinopathy Screening:: Yes Retinal Screening Performed:: Yes Findings of Diabetic Eye Exam:: no retin opathy Vascular DP PULSES (B): 2/4, B/L PT PULSES (B): 2/4, B/L CAPILLARY FILL TIME: immediate, all digi ts, B/L TEMPERTURE GRADIENT (C): normal, warm to cool, proximal to distal, B/L, B/L TROPHIC CONDITION-TEXTURE/ELASTICITY/TURGOR/HAIR GROWTH (B): normal, B/L PIGMENTATION: normal, B/L Nails NAILS are: Elongated, overg rown, dystrophic, lytic, greater than 3mm thick, discolored and friable with crumbly malodorous subungual debris, TA, T1, T2, T3, T4, T5, T6, T7, T8, T9
--- OUTSIDE RECORDS SUMMARY | 2024-06-11 08:47 | XMS_ITS | Patient Health Record ---
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 Name Role Phone Pao ZHANG, Rowena Garrido Primary Care Provider Un available Black, Matilda Unavailable [phone] Allergies No Known Allergies Results Component Value Reference Range Notes HEMOGLOBIN A1C (GLYCOHEMOGLO BIN) Reviewed date:03/11/2024 11:38:18 AM Interpretation: Performing Lab: Notes/Report: HEMOGLOBIN A1C % (HH) 8.2 Reason For Referral No Information Medications Medication SIG (Take, Route, Frequency, Duration) Notes Start Date End Date Status Tricor 145 MG 1 tablet Orally Once a day for 30 day(s) Not-Taking Invokana Not-Taking Cozaar 25 MG 1 tablet Orally Once a day Active Clozaril 200 MG 1 tablet Orally Once a day Active metFORMIN HCl Not-Ta hola Extra Depth Orthopedic Shoes (1 Pair) with Customized Heat Molded Multidensity Innersoles (3 Pair) as directed Dx: IDDM/Polyneuropathy (E10.42), Hammertoe Foot Deformity (M20.41,M20.42), Preulcerative Skin Lesion(s) (L85.1) 03/31/2022 Active Jardiance 25 MG 1 tablet Once a day Active Tylenol Not-Taking Fenofibrate 160 MG as directed Active Vitamin D Not-Taking Lantus Not-Taking Haldol Active Colace 100 MG 1 capsule as needed Orally Once a day for 30 day(s) Active Hydrocortisone 2.5 % as directed Externa lly to feet Twice a day for 30 days Not-Taking Ativan 1 MG as directed Active Gemfibrozil 600 MG as directed Orally Twice a day Not-Taking Tresiba 100 UNIT/ML as directed Subcutaneous Active Fish Oil Not-Taking Extra Depth Orthopedic Shoes (1 Pair) with Customized Heat Molded Multidensity Innersoles (3 Pair) as directed Dx: NIDDM/Polyneuropathy (E11.42), Hammertoe Foot Deformity (M20.41,M20.42), Preulcerative Skin Lesion(s) (L85.1 05/01/2024 Active HumuLIN 70/30 (70-30) 100 UNIT/ML as directed Subcutaneous Not-Taking Omeprazole 20 MG 1 capsule 30 minutes before morning meal Orally Once a day Active PriLOSEC 20 MG 1 capsule Orally Onc e a day for 30 day(s) Not-Taking Rosuvastatin Calcium 5 MG 1 tablet Orall y Once a day Active [place] Carbonate 600 MG as directed Ora lly Twice a day Not-Taking [place] 3 Active Losartan Potassium 25 MG 1 tablet Orally Once a day Not-Taking Trulicity Active Cleocin-T 1 % 1 application to affected area Externally Twice a day Not-Takin g traZODone HCl Active Vascepa Not-Taking hydrOXYzine HCl 25 MG as directed Orally Active Benadryl Not-Taking Albuterol Sulfate Ac tive Glucophage 1000 MG 1 tablet with meals Orally Twice a day for 30 day(s) Not-Taking Ozempic Active PriLOSEC Not-Taking Anoro Ellipta 62.5-25 MCG/ACT 1 puff Inhalation Once a day Active Flonase Active Immunizations Vaccine Route Administration Date Status Comme [...] ast year? No Points 0 Interpretation Negative Problems Problem Type SNOMED Code ICD Code Onset Dates Problem Status W/U Status Risk Notes Problem Acquired hammer toe of right foot (3083473758166142 ) Other hammer toe(s) (acquired), right foot (M20.41) Active confirmed Problem Acquired hammer toe of left foot (4173899538372004 ) Other hammer toe(s) (acquired), left foot (M20.42) Active confirmed Problem Localized, primary osteoarthritis of the ankle and/or foot (358603987) Primary osteoarthritis, right ankle and foot (M19.071) Active confirmed Problem Polyneuropathy due to diabetes mellitus type I (310373394) Type 1 diabetes mellitus with diabetic polyneuropathy (E10.42) Active confirmed Vital Signs Blood pressure diastolic 80 mm Hg 05/01/2024 Height 5ft 8in in 05/01/2024 Blood pressure systolic 140 mm Hg 05/01/2024 Weight 219 lbs 05/01/2024 BMI 33.3 kg/m2 05/01/2024 Procedures Procedure Date Ordered Date Performed Result Body Sit e 84069-QRDTYDE NAIL, 6 OR MORE 09/16/2023 N/A 71795-WNMG SKIN LESIONS, OVER 4 09/16/2023 N/A 35800-NGPZKMB NAIL, 6 OR MORE 01/24/2024 N/A 46521-Zdpwaoez Plate 01/24/2024 N/A 22015-NFYQ SKIN LESIONS, OVER 4 01/24/2024 N/A 51475-DRBZCEK NAIL, 6 OR MORE 05/01/2024 N/A 37705-KRVO SKIN LESIONS, OVER 4 05/01/2024 N/A Encounters Encounter Location Date Provider Diagnosis [facility] [address] [place] [address] 09/16/2023 Matilda Black Type 1 diabetes mellitus with diabetic polyneuropathy E10.42 and Tinea unguium B35.[address] [address] 01/24/2024 Matilda Gonzalez Type 1 diabetes mellitus with diabetic polyneuropathy E10.42 ; Tinea unguium B35.1 and Ingrown nail L60.[address] [address] 05/01/2024 Matilda Gonzalez Type 1 diabetes mellitus with diabetic polyneuropathy E10.42 ; Other hammer toe(s) (acquired), right foot M20.41 ; Tinea unguium B35.1 and Other hammer toe(s) (acquired), left foot M20.[address] [address] 09/16/2023 Matilda Gonzalez [address] [address] 10/21/2023 Matilda Gonzalez Assessments Encounter Date Diagnosis (ICD Code) Assessment Notes Treatment Notes Treatment Clinical Notes Section Notes 09/16/2023 Type 1 diabetes mellitus with diabetic polyneuropathy (ICD-10 - E10.42) 01/24/2024 Type 1 diabetes mellitus with diabetic polyneuropathy (ICD-10 - E10.42) 05/01/2024 Other hammer toe(s) (acquired), right foot (ICD-10 - M20.41) Patient Educated with: DIABETIC FOOT CARE INSTRUCTIONS. pdf (DIABETIC FOOT CARE INSTRUCTIONS. pdf) 05/01/2024 Type 1 diabetes mellitus with diabetic polyneuropathy (ICD-10 - E10.42) 05/01/2024 Tinea unguium (ICD-10 - B35.1) 01/24/2024 Tinea unguium (ICD-10 - B35.1) 09/16/2023 Tinea unguium (ICD-10 - B35.1) 05/01/2024 Other hammer toe(s) (acquired), left foot (ICD-10 - M20.42) 01/24/2024 Ingrown nail (ICD-10 - L60.0) Plan Of Treatment Pending Test Test Name Order Date 70299-AZOXWRS NAIL, 6 OR MORE 01/07/2012 47418-BIEGMQP NAIL, 6 OR MORE 04/11/2012 85356-IOOITZG NAIL, 6 OR MORE 07/11/2012 28368-ASPEGOQ NAIL, 6 OR MORE 10/03/2012 78597-VRCLPIJ NAIL, 6 OR MORE 12/19/2012 94107-CMLBDHW NAIL, 6 OR MORE 03/23/2013 36440-IEWCZGT NAIL, 6 OR MORE 06/21/2013 90465-TQCAEHO NAIL, 6 OR MORE 09/20/2013 25867-TUCHAWD NAIL, 6 OR MORE 12/07/2013 14100-XBFFFNO NAIL, 6 OR MORE 03/14/2014 12261-PQPBUHT NAIL, 6 OR MORE 06/20/2014 96989-VAGBTYJ NAIL, 6 OR MORE 08/23/2014 64667-WRFYRCA NAIL, 6 OR MORE 11/22/2014 12547-XECUGXG NAIL, 6 OR MORE 02/13/2015 06397-ORDFPQG NAIL, 6 OR MORE 05/15/2015 33734-DTEZAXC NAIL, 6 OR MORE 08/12/2015 52789-BHIXJKN NAIL, 6 OR MORE 11/11/2015 30375-ODDDSVF NAIL, 6 OR MORE 02/19/2016 82221-WUDMTFH NAIL, 6 OR MORE 05/21/2016 64446-HBPAWDC NAIL, 6 OR MORE 10/05/2016 42678-NGHDZRB NAIL, 6 OR MORE 01/11/2017 20689-EBJACLK NAIL, 6 OR MORE 04/12/2017 72278-SZKICHQ NAIL, 6 OR MORE 09/16/2017 60257-GNJBBZK NAIL, 6 OR MORE 12/16/2017 16594-UVHOQOB NAIL, 6 OR MORE 03/17/2018 45049-XTVZTDV NAIL, 6 OR MORE 07/14/2018 90581-DGWCBAM NAIL, 6 OR MORE 01/16/2019 26698-ARWRGHC NAIL, 6 OR MORE 08/17/2019 59924-NUIKGTE NAIL, 6 OR MORE 11/20/2019 17307-CJPRTHB NAIL, 6 OR MORE 03/07/2020 11825-KJNUMPH NAIL, 6 OR MORE 06/06/2020 68363-XTNDHCE NAIL, 6 OR MORE 09/12/2020 12683-SULHMVC NAIL, 6 OR MORE 12/26/2020 82370-OSXOZBA NAIL, 6 OR MORE 04/07/2021 29710-MSEQSZZ NAIL, 6 OR MORE 07/07/2021 82311-UUNJKUB NAIL, 6 OR MORE 10/13/2021 04680-JDEJSXN NAIL, 6 OR MORE 01/12/2022 56821-UEIUSZB NAIL, 6 OR MORE 06/04/2022 73522-MQQLLLR NAIL, 6 OR MORE 08/24/2022 35236-HEEADHW NAIL, 6 OR MORE 11/19/2022 82950-DFKHMFF NAIL, 6 OR MORE 02/08/2023 66427-JCFIQRT NAIL, 6 OR MORE 05/20/2023 74752-XHUKMDL NAIL, 6 OR MORE 09/16/2023 89875-XMBXIUA NAIL, 6 OR MORE 01/24/2024 32514-TGWNHSL NAIL, 6 OR MORE 05/01/2024 35578-Qhvaghmg Plate 01/24/2024 08114-Xuajhvuj Plate 08/24/2022 74696-Opcdmbdq Plate 10/13/2021 48351-Lgjletpy Plate 07/07/2021 76732-Jezlhgwp Plate 11/22/2014 54170-Xwylehiw Plate 08/23/2014 14962-Zqpzaufs Plate 06/20/2014 94535-Zngjwhoj Plate 03/14/2014 23054-Tswlyunf Plate 12/07/2013 15828-Fxkbqmro Plate 09/20/2013 37663-Qgbxcqut Plate 06/21/2013 50028-Hrndflws Plate Each Additional 21692-Vhyodpnz Plate Each Additional 10/2021 80095, J0702- INJECT or DRAIN, JOINT/BUR SA 06/06/2020 65758-EYQA SKIN LESIONS, OVER 4 07/08/19 22 92231-ZNSU SKIN LESIONS, OVER 4 04/07/19 22 48341-KCEM SKIN LESIONS, OVER 4 12/27/19 21 55059-ZMZP SKIN LESIONS, OVER 4 10/14/19 22 44174-VNVL SKIN LESIONS, OVER 4 01/13/20 22 96106-PHUH SKIN LESIONS, OVER 4 08/25/19 23 11899-GAGG SKIN LESIONS, OVER 4 06/05/19 23 37784-BVAJ SKIN LESIONS, OVER 4 09/16/19 24 93954-NQTY SKIN LESIONS, OVER 4 05/20/19 24 98075-QEDU SKIN LESIONS, OVER 4 02/09/20 23 36913-XDRF SKIN LESIONS, OVER 4 11/20/19 23 30320-KGGO SKIN LESIONS, OVER 4 01/24/20 24 31914-RHWL SKIN LESIONS, OVER 4 05/02/19 25 97439-KVPU SKIN LESIONS, 2 TO 4 06/07/19 21 38278-SMZH SKIN LESIONS, 2 TO 4 09/13/19 21 53972-GXSS SKIN LESIONS, 2 TO 4 03/07/19 21 81767-HUVY SKIN LESIONS, 2 TO 4 11/20/19 20 73311-AVXS SKIN LESIONS, 2 TO 4 08/17/19 20 66601-YRZH SKIN LESIONS, 2 TO 4 01/17/20 19 12448-DPML SKIN LESIONS, 2 TO 4 07/15/19 19 17812-HGAC SKIN LESIONS, 2 TO 4 03/17/19 19 29526-PDKL SKIN LESIONS, 2 TO 4 12/17/19 18 48587-MMMI SKIN LESIONS, 2 TO 4 09/17/19 18 01077-ERCE SKIN LESIONS, 2 TO 4 01/12/20 17 24340-YLWA SKIN LESIONS, 2 TO 4 04/12/19 18 40311-GDDT SKIN LESIONS, 2 TO 4 06/22/19 14 72562-ORSZ SKIN LESIONS, 2 TO 4 09/21/19 14 23860-PCFY SKIN LESIONS, 2 TO 4 12/08/19 14 76532-ARRX SKIN LESIONS, 2 TO 4 03/23/19 14 75983-XHZA SKIN LESIONS, 2 TO 4 10/04/19 13 13372-QAZD SKIN LESIONS, 2 TO 4 07/12/19 13 47412-IBJI SKIN LESIONS, 2 TO 4 03/14/19 15 07136-VENA SKIN LESIONS, 2 TO 4 06/21/19 15 97439-OHRO SKIN LESION 05/21/2016 09597-UHXT SKIN LESION 10/05/2016 Next Appt Details Provider Name:Matilda Gonzalez , 08/07/2024 01:30:00 PM, [address] [facility], [place], [address], Insurance Providers Payer Name Payer Address Payer Phone Subscriber Number Group Number Insured Name Patient Relationship to Insured Coverage Start Date Coverage End Date [employer] [address] [place] [address] [phone] [id number] Matty Mejia Self - patient is the insured Medical (General) History Medical History History ICD Code anxiety depression diabetic headaches/migraines high blood pressure psychiatric disorder reflux chicken pox Surgical History Surgery Date(Month/Year) Hospitalization History Reason Date(Month/Year) bad hip [facility] 10/31/2023 [facility]- pt cant remember overnight sleep study 12/2014
[2024-06-11 08:50] LABS: Bacteria Urine None Seen (None Seen); Hyaline Casts Urine 0-2 /LPF (0-2); RBC Urine 0-2 /HPF (0-2); Squamous Epithelial Cell Urine 0-2 /HPF (0-2); WBC Urine 0-5 /HPF (0-5)
--- NOTE | 2024-06-11 09:05 | ED_ITS ---
HPI - Extremity Problem General Chief complaint: Extremity Problem Stated complaint: L SIDED GROIN PAIN Time Seen by Provider: 06/11/24 08:25 Source: patient Mode of arrival: ambulatory Limitations: no limitations History of Present Illness ED Provider: MABLE ARDON PA-C HPI Narrative: 44 year old male with pmhx significant for HTN, insulin dependent diabetes mellitus, CKD, schizoaffective disorder presents to the ED today via EMS from home for evaluation of LLQ, left hip and left groin pain x3 days. When asked to point to where he has pain, he points to his left inguinal fold and tells me if feels deeper in my bone . Denies any injury, trauma or falls. Reports similar pain to right hip in the past. He was told it was arthritis. He states this feels similar. He has been taking Tylenol at home with minimal relief. His last dose was yesterday around 5:00 p.m.. He is on chronic lorazepam. Reports chronic constipation. Reports passing a small BM this morning. Denies fever, chills, N/V, urinary symptoms, testicular pain/swelling, penile discharge. Related Data Home Medications ?Medication ?Instructions ?Recorded ?Confirmed haloperidol 5 mg tablet 5 mg PO BID 04/03/20 06/12/24 acetaminophen 500 mg tablet 500 mg PO Q12H PRN Pain 10/21/22 06/12/24 (Tylenol Extra Strength) albuterol sulfate 90 mcg/actuation 2 puff inhalation Q6H PRN for 02/01/23 06/12/24 aerosol inhaler wheezing semaglutide 1 mg/dose (4 mg/3 mL) 1 mg subcut TH@0900 09/14/23 06/12/24 subcutaneous pen injector (Ozempic) hydroxyzine HCl 25 mg tablet 25 mg PO DAILY 12/28/23 06/12/24 lorazepam 1 mg tablet 1 mg PO DAILY PRN Anxiety 12/28/23 06/12/24 docusate sodium 100 mg capsule 100 mg PO BID 02/14/24 06/12/24 clozapine 200 mg tablet 200 mg PO BEDTIME 05/01/24 06/12/24 insulin degludec 100 unit/mL 45 unit subcut DAILY 05/23/24 06/12/24 subcutaneous solution (Tresiba U-100 Insulin) Previous Rx's ?Medication ?Instructions ?Recorded fluticasone propionate 50 1 spray intranasal BEDTIME 30 days 01/28/23 mcg/actuation nasal #16 grams spray,suspension (Flonase Allergy Relief) flash glucose scanning reader #1 ea 02/01/23 (FreeStyle Maria D 2 [place]) flash glucose sensor (FreeStyle #1 ea 02/01/23 Maria D 2 Sensor kit) fenofibrate 160 mg tablet 160 mg PO DAILY #90 tabs 06/30/23 ferrous fumarate 324 mg (106 mg 324 mg PO DAILY #90 tabs 08/03/23 iron) tablet bisacodyl 5 mg tablet,delayed 10 mg (2 x 5 mg) PO BEDTIME PRN 09/16/23 release (Dulcolax (bisacodyl)) constipation 2 days #4 tabs pen needle, diabetic 33 gauge x #100 ea 11/22/23 3/ (Comfort EZ Pen [place]) umeclidinium 62.5 mcg-vilanterol 1 ea PO DAILY #60 ea 12/27/23 25 mcg/actuation powdr for inhalation (Anoro Ellipta) empagliflozin 25 mg tablet 25 mg PO DAILY #30 tabs 01/14/24 omeprazole 20 mg capsule,delayed 20 mg PO BID #180 caps 02/04/24 release rosuvastatin 5 mg tablet 5 mg PO DAILY #90 tabs 02/11/24 Allergies Allergy/AdvReac Type Severity Reaction Status Date / Time No Known Allergies Allergy Verified 06/11/24 08:32 Review of Systems 2 Review of Systems: Yes all other systems are reviewed and are negative PMFSH Past Medical History Attestation statement: The following information was validated with the patient. Source: old records reviewed and nursing notes reviewed Medical History CKD (chronic kidney disease) stage 3, GFR 30-59 ml/min Tinea unguium Type 2 diabetes mellitus with diabetic polyneuropathy CKD (chronic kidney disease) stage 4, GFR 15-29 ml/min Type 2 diabetes mellitus with complication, with long-term current use of insulin Uncontrolled diabetes mellitus with hyperglycemia Hypercalcemia Noncompliance with medication regimen Rash and nonspecific skin eruption Tremor Vitamin D deficiency Mixed dyslipidemia Restrictive airway disease Type 2 diabetes mellitus with other diabetic kidney complication Solitary pulmonary nodule on lung CT Smoker unmotivated to quit Obesity (BMI 30-39.9) Schizoaffective disorder Essential hypertension Surgical History No pertinent past surgical history Family History Family History Father Unknown family medical history Mother Unknown family medical history Brother No problems noted. Sister No problems noted. Social History Social History Housing: Other Housing Other:: [facility] Alcohol intake: never Patient Tobacco Use Status: Current everyday Tobacco user Cigarette Packs Per Day: 2 e-Cigarette/Vaping Use: Never Used Substance Use Type: Marijuana Advance Directives Date on File: 12/06/23 service: No Current occupational status: disabled Cognitive needs: No Hearing needs: No Vision needs: Yes Physical Exam 2 Vital Signs: Vital Signs: Last Vital Signs Temp 98.2 F 06/12/24 11:16 Pulse 91 06/12/24 11:16 Resp 16 06/12/24 11:16 BP 147/93 H 06/12/24 11:16 Pulse Ox 94 06/12/24 11:16 O2 Del Method Room Air 06/12/24 11:16 BMI result Body Mass Index 33.5 hypertensive, vitals are otherwise wnl General: Well appearing, in no acute distress. Skin: Warm, dry, intact. No rashes or lesions. Head: Normocephalic, atraumatic. EENT: Hearing is intact b/l. Conjunctiva clear. PERRLA. EOM intact. Moist mucous membranes.? Neck: Supple without LAD Cardiac: Chest wall symmetric. RRR Lungs: Normal respiratory effort without accessory muscle use. CTA bilaterally Abdomen: +mildly distended, soft, minimal tenderness to left lower quadrant, active bs. No rebound tenderness or guarding. [facility] to milled rubber tender. patient agreeable to sensitive exam. Testicles with normal lie. No noted swelling or overlying skin changes. Uncircumcised penis, no expressible discharge from the urethral meatus. No erythema or overlying penile lesions. No inguinal lymphadenopathy. No palpable inguinal hernia. Back: +tender to palpation over left hip. No palpable deformity or crepitus. LLE not rotated or shortened. ROM limited to right hip d/t pain. Ext: Upper and lower extremities atraumatic, without tenderness, deformity, swelling or erythema. 2+dp/pt pulse intact. Neuro: AOx3. Normal speech. Strength 5/5 intact throughout. No saddle anesthesia. Sensation intact to light touch. NV intact distally. Psych: Appropriate mood and affect. Responds appropriately to questions. Course Course Course Narrative: 1059 -- CBC showing slight leukocytosis to 11 without left shift. No anemia. H&H stable. Chemistry without acute electrolyte abnormality requiring intervention. Renal function is baseline per CKD. Random glucose 151. Calcium slightly elevated at 10.5. Urine without infection. X-ray left hip unremarkable. CT abdomen/pelvis showing questionable partial intussusception involving the small bowel within the left lower quadrant with mild dilation of the small bowel proximal to this. Early or partial obstruction is possible. there is also a very small left inguinal hernia. ct with IV contrast had been ordered to r/o infection v hernia. i did not have concern for obstruction and this oral contrast was not ordered. > Discussed with Dr. Major - He is requesting repeat CT scan with oral contrast to further assess. This has been ordered. roofing technician aware of need for oral contrast. > patient continues to endorse pain after Tylenol. will trial IV morphine while awaiting scan. 1557 -- repeat CT A/P with oral contrast is quite unremarkable. No obstructive or acute inflammatory changes within the GI or genitourinary tract. No evidence of intussusception. Pelvic contents unremarkable. Normal appendix. No fracture. I attempted to get patient up and ambulating. He tells me he cannot d/t pain and does not want to try and ambulate. I offered PT evaluation and he is agreeable. > I discussed code status in depth with patient. he states he is DNR/DNI. code status updated. > physical therapy/ case management consultation placed. physician observation initiated at this time. Reevaluation(s) Reevaluation #1: Time: 11:01 Date: 06/12/24 Provider: Юлия Silva DO Physician observation ended at 1102am. Patient has been cleared for discharge by the PT/CM. Will follow up as an outpatient. up and walking no issues Medications Administered Discontinued Medications Generic Name Dose Route Start Last Admin Trade Name Freq PRN Reason Stop Dose Admin Acetaminophen 975 mg 06/11/24 08:51 06/11/24 09:15 Acetaminophen 325 Mg Tablet PO 06/11/24 08:52 975 mg ONCE ONE Administration Diatrizoate Meglum/Diatrizoate Sod 30 ml 06/11/24 13:33 06/11/24 13:34 Diatrizoate Meglumine, Sodium 30 Ml Solution PO 06/11/24 13:34 30 ml ONCE ONE Administration Docusate Sodium 100 mg 06/12/24 09:00 06/12/24 09:34 Docusate Sodium 100 Mg Capsule PO 100 mg BID ELIZA Administration Empagliflozin 25 mg 06/12/24 09:00 06/12/24 09:30 Empagliflozin 25 Mg Tablet PO Not Given DAILY ELIZA Fenofibrate 160 mg 06/12/24 09:00 06/12/24 09:30 Fenofibrate 160 Mg Tablet PO Not Given DAILY ELIZA Haloperidol 5 mg 06/12/24 09:00 06/12/24 09:30 Haloperidol 5 Mg Tablet PO Not Given BID [facility] Hydroxyzine HCl 25 mg 06/12/24 09:00 06/12/24 09:30 Hydroxyzine Hcl 25 Mg Tablet PO Not Given DAILY [facility] Morphine Sulfate 4 mg 06/11/24 10:53 06/11/24 11:05 Morphine Sulfate 4 Mg/Ml Cartridge IVPUSH 06/11/24 10:54 4 mg ONCE ONE Administration Protocol Morphine Sulfate 4 mg 06/11/24 15:20 06/11/24 15:41 Morphine Sulfate 4 Mg/Ml Cartridge IVPUSH 06/11/24 15:21 4 mg ONCE ONE Administration Protocol Non-Formulary Medication 324 mg 06/12/24 09:00 06/12/24 09:30 Ferrous Fumarate PO Not Given DAILY [facility] Non-Formulary Medication 45 unit 06/12/24 09:00 06/12/24 09:30 Insulin Degludec [Tresiba U-100 Insulin] SUBCUT Not Given DAILY [facility] Non-Formulary Medication 5 mg 06/12/24 09:00 06/12/24 09:30 Rosuvastatin PO Not Given DAILY [facility] Non-Formulary Medication 1 each 06/12/24 09:00 06/12/24 09:30 Umeclidinium-Vilanterol [Anoro Ellipta] PO Not Given DAILY [facility] Medical Decision Making Medical Decision Making MDM Narrative: 44 year old male with pmhx significant for HTN, insulin dependent diabetes mellitus, CKD, schizoaffective disorder presents to the ED today via EMS from home for evaluation of left hip pain x3 days. Vitals notable for hypertension to 141/85. Vitals are otherwise WNL. He is nontoxic-appearing and in no acute distress. Lying comfortably on the exam bed. Patient agreeable to sensitive exam - [facility] anaesthetic technician in room to milled rubber tender. Testicles with normal lie. No noted swelling or overlying skin changes. Uncircumcised penis, no expressible discharge from the urethral meatus. No erythema or overlying penile lesions. No inguinal lymphadenopathy. No palpable inguinal hernia. There is tenderness to palpation over left hip. No palpable deformity or crepitus. LLE not rotated or shortened. unable to flex left hip d/t pain. SILT throughout. Differential diagnosis includes arthritis, fracture, bursitis, inguinal hernia, UTI. I am also considering constipation, diverticulosis, diverticulitis. Unlikely SBO. Unlikely orchitis, testicular torsion, STI. Unlikely hip dislocation, NV compromise, threat to limb, compartment syndrome, DVT. Plan for screening labs, UA, xrays, pain control, and re-evaluation. Differential Diagnosis Differential Diagnoses: The differential diagnosis associated with the presentation includes As above Admission/Observation Not indicated Lab Data MDM Lab Attestation statement: I reviewed the patient's lab results. as above. 06/11/24 10:24 06/11/24 10:24 Labs: Lab Results 06/11/24 06/11/24 06/11/24 Range/Units 08:33 08:40 10:24 WBC 11.0 H (4.8-10.8) X10*3/uL RBC 5.72 (4.60-5.80) X10*6/uL Hgb 16.2 (14.0-18.0) g/dl Hct 46.2 (42.0-52.0) % MCV 80.8 (80.0-98.0) fL MCH 28.3 (27.0-33.0) pg MCHC 35.1 (31.0-36.0) g/dl RDW 14.3 (11.0-16.0) % Plt Count 229 (160-400) X10*3/uL MPV 9.5 (9.4-12.4) fL Immature Gran % (Auto) 0.4 (0.0-0.4) % Neut % (Auto) 73.6 H (45-73) % Lymph % (Auto) 15.5 L (20-40) % [place] % (Auto) 10.1 (2-11) % Eos % (Auto) 0.3 (0-4) % Baso % (Auto) 0.1 (0-2) % Lymph # (Auto) 1.7 (1.2-4.9) X10*3/uL [place] # (Auto) 1.1 (0.1-1.2) X10*3/uL Eos # (Auto) 0.0 (0.0-0.4) X10*3/uL Baso # (Auto) 0.0 (0.0-0.2) X10*3/uL Abs Immat Gran (auto) 0.04 H (0.00-0.03) X10*3/uL Absolute Neuts (auto) 8.1 (2.0-8.3) x10*3/uL Absolute Nucleated RBC 0.000 (0.0-0.012) X10*3/uL Nucleated RBC % (auto) 0.0 (0.0-0.2) /100WBC Sodium 135 (135-145) mmol/L Potassium 4.6 (3.3-5.1) mmol/L Chloride 104 (96-108) mmol/L Carbon Dioxide 22 (22-29) mmol/L Anion Gap 14 (12-20) BUN 18 H (9-16) mg/dL Creatinine 1.85 H (0.5-1.4) mg/dL Estim Creat Clear Calc 57.7 Estimated GFR 40 POC Glucose 223 H (60-115) mg/dL Random Glucose 151 H (60-115) mg/dL Calcium 10.5 H D (8.4-10.2) mg/dL Total Bilirubin 0.3 (0.0-1.0) mg/dL AST 23 (5-37) U/L ALT 19 (0-40) U/L Alkaline Phosphatase 73 (39-117) U/L Total Protein 8.0 (6.5-8.0) g/dL Albumin 4.4 (3.5-5.0) g/dL Urine Color Yellow Urine Appearance Clear Urine pH 6.5 (5.0-9.0) Ur Specific [place] <= 1.005 (1.005-1.025) Urine Protein Negative (Neg-Trace) mg/dL Urine Glucose (UA) >=1000 H (Negative) mg/dL Urine Ketones Negative (Negative) mg/dL Urine Blood Trace H (Negative) Urine Nitrite Negative (Negative) Ur Leukocyte Esterase Negative (Negative) Urine RBC 0-2 (0-2) /HPF Urine WBC 0-5 (0-5) /HPF Ur Squamous Epith Cells 0-2 (0-2) /HPF Urine Bacteria None Seen (None Seen) Hyaline Casts 0-2 (0-2) /LPF 06/11/24 06/12/24 Range/Units 18:44 07:24 WBC (4.8-10.8) X10*3/uL RBC (4.60-5.80) X10*6/uL Hgb (14.0-18.0) g/dl Hct (42.0-52.0) % MCV (80.0-98.0) fL MCH (27.0-33.0) pg MCHC (31.0-36.0) g/dl RDW (11.0-16.0) % Plt Count (160-400) X10*3/uL MPV (9.4-12.4) fL Immature Gran % (Auto) (0.0-0.4) % Neut % (Auto) (45-73) % Lymph % (Auto) (20-40) % [place] % (Auto) (2-11) % Eos % (Auto) (0-4) % Baso % (Auto) (0-2) % Lymph # (Auto) (1.2-4.9) X10*3/uL [place] # (Auto) (0.1-1.2) X10*3/uL Eos # (Auto) (0.0-0.4) X10*3/uL Baso # (Auto) (0.0-0.2) X10*3/uL Abs Immat Gran (auto) (0.00-0.03) X10*3/uL Absolute Neuts (auto) (2.0-8.3) x10*3/uL Absolute Nucleated RBC (0.0-0.012) X10*3/uL Nucleated RBC % (auto) (0.0-0.2) /100WBC Sodium (135-145) mmol/L Potassium (3.3-5.1) mmol/L Chloride (96-108) mmol/L Carbon Dioxide (22-29) mmol/L Anion Gap (12-20) BUN (9-16) mg/dL Creatinine (0.5-1.4) mg/dL Estim Creat Clear Calc Estimated GFR POC Glucose 96 152 H (60-115) mg/dL Random Glucose (60-115) mg/dL Calcium (8.4-10.2) mg/dL Total Bilirubin (0.0-1.0) mg/dL AST (5-37) U/L ALT (0-40) U/L Alkaline Phosphatase (39-117) U/L Total Protein (6.5-8.0) g/dL Albumin (3.5-5.0) g/dL Urine Color Urine Appearance Urine pH (5.0-9.0) Ur Specific [place] (1.005-1.025) Urine Protein (Neg-Trace) mg/dL Urine Glucose (UA) (Negative) mg/dL Urine Ketones (Negative) mg/dL Urine Blood (Negative) Urine Nitrite (Negative) Ur Leukocyte Esterase (Negative) Urine RBC (0-2) /HPF Urine WBC (0-5) /HPF Ur Squamous Epith Cells (0-2) /HPF Urine Bacteria (None Seen) Hyaline Casts (0-2) /LPF Independent Interpretation I performed an independent interpretation of an: Plain X-Ray and CT Scan Interpretation: xr left hip/ pelvis without fracture or dislocation CT a/p with IV contrast showing possible intussusception of small bowel to left lower quadrant CT a/p with oral contrast without bowel obstruction Radiology Impression Discussion of test interpretation with radiology: I have reviewed the radiologist's reading. Radiologist Impression: Procedure(s): CT abdomen pelvis wo IV con Accession Number(s): [id number] cc: Rowena Cedeno MD; Mable Ardon~ Report Number: [id number]: Total DLP = 744.00 mGy-cm ADDENDUMThis document has been electronically signed by: Paulo Macario MD on 06/11/2024 10:37:25 ADDENDUM: This report was discussed with CHAYO Lucero on Jun 11, 2024 10:40:00 EDT. This document has been electronically signed by: Yarely Partida on 06/11/2024 10:40:49 Addendum Dictated By: Paulo Macario MD Addendum Signed By: <Electronically signed by Paulo Macario MD in [place]> 06/11/24 1041 Addendum Cosigned By: DD/ TD/TT: 06/11/24 CLINICAL HISTORY: L inguinal hip pain ?hernia CT abdomen and pelvis without contrast Comparison: CT/SR - CT HIP RT WO IV CON - 12/04/23 10:[address]/SC/SR - CT ABDOMEN PELVIS WO IV CON - 12/01/23 16:42 EDT Findings: No consolidation or effusion. The liver, gallbladder, spleen, adrenal glands and pancreas are stable. Small unchanged left adrenal nodule. Kidneys, and ureters are within normal limits. Mild prominence related to significantly distended bladder. Normal appendix. There is an abnormal segment of small bowel with questioned partial intussusception and dilation proximal to this, axial images 51 -67. No pneumatosis, free air, free fluid or abscess. There does remain stool within the colon. Mild atherosclerotic disease. Very small fat containing left inguinal hernia. No acute osseous findings. Impression: Questioned partial intussusception involving small bowel within the left lower quadrant with mild dilation of the small bowel proximal to this. Early or partial obstruction is possible and follow-up with GI and/or repeat study with oral contrast could be considered. Otherwise incidental findings. Procedure(s): XR hip LT w PEL1V Accession Number(s): [id number] cc: Rowena Cedeno MD; Mable Ardon~ CLINICAL HISTORY: atraumatic left hip pain Exam: AP pelvis with AP and frog-leg lateral views of the left hip. Comparison: CT of the pelvis December 01, 2023. Findings: Bony alignment of the hip joints is anatomic. No fracture or erosion. Minimal to mild degenerative change of both hip joints. Impression: No acute findings. Procedure(s): CT abdomen pelvis wo IV con Accession Number(s): [id number] cc: Rowena Cedeno MD; Mable Ardon~ Report Number: [id number]: Total DLP = 717.00 mGy-cm CLINICAL HISTORY: LLQ pain, ?Intussusception CT ABDOMEN AND PELVIS WITHOUT CONTRAST Comparison: None Findings: No consolidation or effusion. There are no acute abnormalities in the unenhanced solid organs. No renal or ureteral calculus. Mild fatty infiltration of the liver. Partly contracted gallbladder with no large calcified stone. No AAA. No bowel obstruction, pneumoperitoneum, or pneumatosis. Contrast opacifies the stomach and multiple proximal to mid small bowel loops. There is no evidence for an intussusception. No significant mucosal, mesenteric or paracolic edema. Pelvic contents unremarkable. Normal appendix. No acute fracture. IMPRESSION: No obstructive or acute inflammatory changes in the gastrointestinal and genitourinary tracts. Independent Historian Clinical information obtained from an independent historian. History obtained from or confirmed by: EMS External Record Review External record reviewed: Inpatient record Prescription Management I considered prescription management with: Pain Medication Chronic Conditions Patient?s care impacted by: Diabetes and Hypertension Social Determinants Patient?s care significantly limited by Social Determinants of Health including: Other Social Determinant of Health Critical Care Time Critical Care Time Critical Care Time: Yes Total Critical Care Time: 31 Attestation: Critical care time in the amount of 31 minutes has been provided to the patient in terms of direct patient care, frequent reevaluation on IV morphine, review and interpretation of medical data and results, consultation w/ general surgery, and management of potentially life-threatening conditions. This is all outside of any medical procedures. Discharge Plan Discharge Clinical Impression: Left inguinal hernia, Left hip pain Patient Disposition: Home, Self-Care Instructions: Inguinal Hernia (ED), Hip Pain (ED) Additional Instructions: return for any worsening symptoms or concerns follow up with your doctor reach out to surgery if this continues Prescriptions: No Action fenofibrate 160 mg tablet 160 mg PO DAILY Qty: 90 4RF ferrous fumarate 324 mg (106 mg iron) tablet 324 mg PO DAILY Qty: 90 0RF Rx Instructions: take with Vitamin C tablets or orange juice bisacodyl [Dulcolax (bisacodyl)] 5 mg tablet,delayed release (DR/EC) 10 mg PO BEDTIME PRN (Reason: constipation) 2 Days Qty: 4 0RF (DME) pen needle, diabetic [Comfort EZ Pen [place]] 33 gauge x 3/16 needle See Rx Instructions .Route Qty: 100 4RF Rx Instructions: inject insulin twice daily Anoro Ellipta 62.5-25 mcg/actuation blister with device 1 ea PO DAILY Qty: 60 5RF empagliflozin 25 mg tablet 25 mg PO DAILY Qty: 30 5RF Rx Instructions: Take 1 tablet 1 hour before breakfast omeprazole 20 mg capsule,delayed release(DR/EC) 20 mg PO BID Qty: 180 1RF rosuvastatin 5 mg tablet 5 mg PO DAILY Qty: 90 1RF insulin degludec [Tresiba U-100 Insulin] 100 unit/mL solution 45 unit subcut DAILY docusate sodium 100 mg capsule 100 mg PO BID haloperidol 5 mg tablet 5 mg PO BID clozapine 200 mg tablet 200 mg PO BEDTIME acetaminophen [Tylenol Extra Strength] 500 mg tablet 500 mg PO Q12H PRN (Reason: Pain) Ozempic 1 mg/dose (4 mg/3 mL) pen injector 1 mg subcut TH@0900 albuterol sulfate 90 mcg/actuation HFA aerosol inhaler 2 puff inhalation Q6H PRN (Reason: for wheezing) (DME) FreeStyle Maria D 2 Sensor Kit See Rx Instructions .Route Qty: 1 5RF Rx Instructions: As directed (DME) FreeStyle Maria D 2 [place] Misc See Rx Instructions .Route Qty: 1 5RF Rx Instructions: As directed fluticasone propionate [Flonase Allergy Relief] 50 mcg/actuation spray,suspension 1 spray intranasal BEDTIME 30 Days Qty: 16 6RF Rx Instructions: administer into each nostril lorazepam 1 mg tablet 1 mg PO DAILY PRN (Reason: Anxiety) hydroxyzine HCl 25 mg tablet 25 mg PO DAILY Referrals: [facility] [place] General Surgeons [Provider Group] Interventions: ED Discharge Assessment Last Done: 06/12/24 11:16 Discharge Date/Time: 06/12/24 11:17 Print Language: Thai
[2024-06-11] MEDS: Acetaminophen 325 MG TABLET 975 MG PO (09:15)
[2024-06-11 10:28] LABS: MANUAL DIFF FLAG NO
[2024-06-11 10:30] LABS: Basophils Percent Auto 0.1 % (0-2); Eosinophils Percent Auto 0.3 % (0-4); Hematocrit 46.2 % (42.0-52.0); Hemoglobin 16.2 g/dl (14.0-18.0); Imm Gran Abs Auto 0.04 X10*3/uL (0.00-0.03); Imm Gran Pct Auto 0.4 % (0.0-0.4); Lymphocytes Absolute Auto 1.7 X10*3/uL (1.2-4.9); Lymphocytes Percent Auto 15.5 % (20-40); Mean Corpuscular HGB Conc 35.1 g/dl (31.0-36.0); Mean Corpuscular Hemoglobin 28.3 pg (27.0-33.0); Mean Corpuscular Volume 80.8 fL (80.0-98.0); Mean Platelet Volume 9.5 fL (9.4-12.4); Monocytes Absolute Auto 1.1 X10*3/uL (0.1-1.2); Monocytes Percent Auto 10.1 % (2-11); Neutrophils Absolute Auto 8.1 x10*3/uL (2.0-8.3); Neutrophils Percent Auto 73.6 % (45-73); Platelet Count 229 X10*3/uL (160-400); Red Blood Count 5.72 X10*6/uL (4.60-5.80); Red Cell Distribution Width 14.3 % (11.0-16.0)
--- NOTE | 2024-06-11 10:38 | PC.NURSE ---
Pt has had excessive urination since arrival (approx 2200ml clear urine); REMEDIATION PROJECT ENGINEER made aware
[2024-06-11 10:45] LABS: Alanine Aminotransferase 19 U/L (0-40); Albumin Level 4.4 g/dL (3.5-5.0); Alkaline Phosphatase 73 U/L (39-117); Anion Gap 14 (12-20); Aspartate Amino Transferase 23 U/L (5-37); Bilirubin Total 0.3 mg/dL (0.0-1.0); Blood Urea Nitrogen 18 mg/dL (9-16); Calcium 10.5 mg/dL (8.4-10.2); Carbon Dioxide 22 mmol/L (22-29); Chloride 104 mmol/L (96-108); Creatinine Clr Calc Pharmacy 57.7; Estimated Glomerular Filt Rate 40; Glucose Random 151 mg/dL (60-115); Potassium 4.6 mmol/L (3.3-5.1); Sodium 135 mmol/L (135-145)
[2024-06-11] MEDS: Morphine Sulfate 4 MG/ML CARTRIDGE IVPUSH ×2 (11:05→15:41)
--- NOTE | 2024-06-11 11:11 | PC.NURSE ---
Pt medicated per orders for pain; pt drinking PO contrast for CT scan
[2024-06-11 12:41] VITALS: BP 146/86; PULSE 96; RESP 19; TEMP 36.6; O2SAT 98
[2024-06-11] MEDS: Diatrizoate Meglumine, Sodium 30 ML SOLUTION PO (13:34)
[2024-06-11 14:37] VITALS: BP 127/90; PULSE 102; RESP 18; TEMP 37.3; O2SAT 94
[2024-06-11 17:01] VITALS: BP 118/88; PULSE 97; RESP 14; TEMP 36.3; O2SAT 97
--- NOTE | 2024-06-11 18:41 | PC.NURSE ---
Pt resting quietly in room; states still 4/10 pain L groin/hip area, but pt tolerating position changes better then on arrival POC BG 96; pt eating/drinking in room
[2024-06-11 18:49] LABS: Glucose, Whole Blood 96 mg/dL (60-115)
[2024-06-11 19:31] VITALS: BP 131/84; PULSE 101; RESP 16; TEMP 36.7; O2SAT 97
[2024-06-12 06:30] VITALS: BP 134/91; PULSE 91; RESP 14; TEMP 36.8; O2SAT 97
[2024-06-12 07:16] VITALS: BP 147/93; PULSE 102; RESP 18; O2SAT 94
[2024-06-12 07:30] LABS: Glucose, Whole Blood 152 mg/dL (60-115)
--- NOTE | 2024-06-12 07:31 | PC.NURSE ---
Assumed care of pt at 0700. Pt a/ox3, respirations even and unlabored, no increased wob/sob noted. Vitals updated in worklist. Med rec completed by this RN- pt diabetic, morning POC 152. notified to order home meds/sliding scale insulin. Pt sitting up in bed eating breakfast, pt stated to detail technician he hasn't urinated since yesterday. Bladder scan showed >1243 mls, MD Silva notified, verbal order for [place]ina[place].
--- NOTE | 2024-06-12 07:57 | PC.NURSE ---
Pt standing up at side of bed attempting to urinate, pt able to reposition himself to edge of bed/stand independently. Steady gait while standing. Pt able to urinate while standing, output 1,025 mls, no serrano needed at this time. PVR scan 455mls. MD Silva aware. Call marie within reach, all needs met at this time.
--- NOTE | 2024-06-12 08:06 | PC.NURSE ---
Physical Therapy at bedside for assessment.
[2024-06-12] MEDS: Docusate Sodium 100 MG CAPSULE PO (09:34)
--- NOTE | 2024-06-12 10:28 | MHC.CM.PN ---
This CM met with pt, he will be discharging home today with resumption of previous [facility] services, pts [employer] will be transporting him home today.
[2024-06-12 11:16] VITALS: BP 147/93; PULSE 91; RESP 16; TEMP 36.8; O2SAT 94
== END 2024-06-12 11:17 | disposition home or self-care (01) ==
PROVIDERS: Physician Assistant Medical; Emergency Provider Emergency Medicine; PCP Internal Medicine
DX: K40.90 Unilateral inguinal hernia, without obstruction or gangrene, not specified as recurrent (principal); M25.552 Pain in left hip; R10.32 Left lower quadrant pain; R10.30 Lower abdominal pain, unspecified; E11.22 Type 2 diabetes mellitus with diabetic chronic kidney disease; I12.9 Hypertensive chronic kidney disease with stage 1 through stage 4 chronic kidney disease, or unspecified chronic kidney disease; N18.30 Chronic kidney disease, stage 3 unspecified; Z79.899 Other long term (current) drug therapy; Z79.4 Long term (current) use of insulin
CPT/HCPCS: 36415; 73502; 74176; 80053; 81001; 82947; 85025; 96374; 96376; 97161; 99285; J2270

== ENCOUNTER → 2024-06-11 08:51 | Outpatient (BNV) | payer MEDICARE, MEDICAID, SELFPAY | PROVIDERS: Emergency Provider Emergency Medicine; PCP Internal Medicine; Visit Provider Radiology Diagnostic Radiology | DX: R10.32 Left lower quadrant pain (principal); M16.12 Unilateral primary osteoarthritis, left hip | CPT/HCPCS: 74176 ==

== ENCOUNTER 2024-06-29 14:49 | Outpatient (REF) | payer MEDICARE, MEDICAID, SELFPAY ==
[2024-06-29 16:06] LABS: MANUAL DIFF FLAG NO
[2024-06-29 16:18] LABS: Basophils Percent Auto 0.1 % (0-2); Eosinophils Percent Auto 0.1 % (0-4); Hematocrit 42.8 % (42.0-52.0); Imm Gran Abs Auto 0.04 X10*3/uL (0.00-0.03); Imm Gran Pct Auto 0.5 % (0.0-0.4); Lymphocytes Absolute Auto 2.2 X10*3/uL (1.2-4.9); Lymphocytes Percent Auto 26.5 % (20-40); Mean Corpuscular Hemoglobin 28.4 pg (27.0-33.0); Mean Corpuscular Volume 81.1 fL (80.0-98.0); Mean Platelet Volume 10.4 fL (9.4-12.4); Monocytes Absolute Auto 0.5 X10*3/uL (0.1-1.2); Monocytes Percent Auto 6.4 % (2-11); Neutrophils Absolute Auto 5.5 x10*3/uL (2.0-8.3); Neutrophils Percent Auto 66.4 % (45-73); Platelet Count 236 X10*3/uL (160-400); Red Blood Count 5.28 X10*6/uL (4.60-5.80); Red Cell Distribution Width 14.7 % (11.0-16.0); White Blood Count 8.3 X10*3/uL (4.8-10.8)
--- OUTSIDE RECORDS SUMMARY | 2024-06-29 16:49 | XMS_ITS ---
Author Organization [facility] Address [address] [place] [address] Care Team Providers Care Private Chef Name Role Phone Pao ZHANG, Rowena Garrido Primary Care Provider Un available Black, Matilda Unavailable [phone] Allergies No Known Allergies REASON FOR VISIT [...] e a day for 30 day(s) Not-Taking Duffield Carbonate 600 MG as directed Ora lly [...] HCl 25 MG as directed Orally Active Kensett 3 Active Omeprazole 20 MG 1 capsule [...] Ordered Date Performed Result Body Sit e 93840-OQHWTDE NAIL, 6 OR MORE 01/24/2024 N/A 26567-Sbitrqpp Plate 01/24/2024 N/A 15673-BUAI SKIN LESIONS, OVER 4 01/24/2024 N/A Encounters Encounter Location Date Provider Diagnosis [facility] [place] [address] [place] [address] 01/24/2024 Matilda Black Type 1 diabetes mellitus [...] Treatment Pending Test Test Name Order Date 39054-TIPCAFW NAIL, 6 OR MORE 01/24/2024 63009-Ucwbzwck Plate 01/24/2024 17374-PPZF SKIN LESIONS, OVER 4 01/24/20 24 Next Appt Details Follow Up: prn, Reason: Provider Name:Matilda Gonzalez , 08/07/2024 01:30:00 PM, [address] [place] [address], [phone], Procedure Notes * Category Sub-Category Detail Notes [...] Motrin was recommended for pain or discomfort (82353), DIABETES: Matricectomy deferred at this time due [...] use of a nail nipper and/or dremel-type spice grinder, to a more viable healthy nail [...] to maintain effectiveness in symptomatic relief - 90091 Keratoma Treatment Parring or Cutting o f Benign Hyperkeratotic Lesion(s) (-57) More than 4 Lesions - The Benign hyperkeratotic lesions, ( 5 ) in total, locations as stated and described in exam, were pared, and/or cut utilizing a sterile 15 blade, tissue nippers, and/or power dremel instrumentation - 59892 Progress Notes * Matty MCGEEDOB:[birth year] (44 yo M)Acc No.[id number]:01/24/2024 Progress Note Patient:?Ludwig MCGEE Provider:?Matilda Gonzalez DPM :1980???Age:43 Y???Sex:Male Christo e:01/24/2024 Address:[address] [place], [place] [id number] Pcp:Antonella Swan Subjective: * Chief Complaints: * [...] * Hospitalization/Major Diagno stic Procedure:?overnight sleep study 12/2014[facility]- pt cant remember bad hip [facility] 10/31/2023 * Family History:?Mother: dece ased.?Father: alive, [...] morning meal Orally Once a day Trulicity Kensett 3 hydrOXYzine HCl 25 MG Tablet as [...] Orally Once a day Taking Trulicity Taking Kensett 3 Taking hydrOXYzine HCl 25 MG Tablet [...] UNIT/ML Suspension as directed Subcutaneous Fish Oil Duffield Carbonate 600 MG Capsule as directed Orally [...] as directed Subcutaneous Not-Taking/PRN Fish Oil Not-Taking/PRN Duffield Carbonate 600 MG Capsule as directed Orally [...] - L60.0??? Plan: * Treatment: 2.?Tinea unguium?Procedure: 90739-TOJDPMF NAIL, 6 OR MORE 3.?Ingrown nail?Procedure: 73896-Yzdwvyil Plate * Procedures:?Debride Nail 6-10:?Nail debridement?Performance of this nail treatment by a nonprofessional would put this patients foot and overall health at risk. Therefore, debridement to affected nail(s), as described in exam, was performed extensively to reduce/remove overall nail length, girth, thickness, subungual debris, and necrotic tissue, by manual and/or electrical means through the use of a nail nipper and/or dremel-type spice grinder, to a more viable healthy nail [...] to maintain effectiveness in symptomatic relief - 97471.?Keratoma Treatment:?Parring or Cutting of Benign Hyperkeratotic Lesion(s)?(-57) More than 4 Lesions - The Benign hyperkeratotic lesions, ( 5 ) in total, locations as stated and described in exam, were pared, and/or cut utilizing a sterile 15 blade, tissue nippers, and/or power dremel instrumentation - 33644.?Nail Avulsion:?Location?, Lateral nail border, TA.?Anesthesia?, was deferred [...] Motrin was recommended for pain or discomfort (17365), DIABETES: Matricectomy deferred at this time due to diabetes risk.? * Procedure Codes:?30691 DEBRI DE NAIL, 6 OR MORE, Modifiers: XS 16935 Avulsion Plate, [place]: [place] [address] TRIM SKIN LESIONS, OVER 4, Modifiers: XS * Preventive Medicine:? ??Counseling:?Tobacco use:?Type of Tobacco Use Cessation Counseling provided?Smoking cessation education ?Patient counseled on the dangers of smoking and urged to quit:?01/24/2024 ?Shoe Gear Counseling:?The patient deferred recommended diabetic shoes with heat moled inserts.? * Follow Up:?prn * Images: * Sign off status: Completed true * Provider:?Matilda Gonzalez DPM Date:?2023 Generated for Rukhsana melton/Sylvia/eTladansmwillis on:?06/29/2024 04:49 PM EDT History and Physical Notes * HPI [...] (s), 5 , B/L Orthopedic FOOTWEAR EVALUATION: Non-Diabetic with no OT General Examination GENERAL [...]
--- OUTSIDE RECORDS SUMMARY | 2024-06-29 16:50 | XMS_ITS ---
Author Organization [facility] Address [address] [place] [id number] Care Team Providers Care Thermometer Tester Name Role Phone Pao ZHANG, Rowena Garrido Primary Care Provider Un available Carlos Matilda Unavailable [phone] Encounters Encounter Location Date Provider Diagnosis [address] [address] 12/27/2023 Matilda Gonzalez Plan Of Treatment Next Appt Details Provider Name:Matilda Gonzalez , 08/07/2024 01:30:00 PM, [address] [place] [address], [phone], Progress Notes * Matty MCGEEDOB:[birth year] (44 yo M)Acc No.[id number]:12/27/2023 Progress Note Patient:?VARGAS Ludwig o Provider:?Matilda Gonzalez DPM :1980???Age:43 Y???Sex:Male Christo e:12/27/2023 Address: [address], [id number] Pcp:Antonella Swan Subjective: * Chief Complaints: * ??? * Medical History:? Objective: * Vitals:? Assessment: Plan: * Treatment: * Images: * The named appointment provid er may or may not be the originator of this progress note, and it is not deemed complete until electronically signed by the appointment provider. Sign off status: Pending * Provider:Diogenes Gonzalez DPM Date:?2023 Generated for Rukhsana melton/Sylvia/Hans on:?06/29/2024 04:50 PM EDT
--- OUTSIDE RECORDS SUMMARY | 2024-06-29 16:50 | XMS_ITS | Patient Health Record ---
Author Organization [facility] Address [address] [facility] [place] [address] Care Team Providers Care Animal Ecologist Name Role Phone Pao ZHANG, Rowena Garrido Primary Care Provider Un available Black, Matilda Unavailable [phone] Allergies No Known Allergies Results Component Value [...] tablet Orall y Once a day Active Myra Carbonate 600 MG as directed Ora lly Twice a day Not-Taking [place] 3 Active Losartan Potassium 25 MG 1 [...] Problem Acquired hammer toe of right foot (7942536615155885 ) Other hammer toe(s) (acquired), right foot (M20.41) Active confirmed Problem Acquired hammer toe of left foot ([id number] ) Other hammer toe(s) (acquired), left foot (M20.42) Active confirmed Problem Localized, primary osteoarthritis of the ankle and/or foot (875060247) Primary osteoarthritis, right ankle and foot (M19.071) Active confirmed Problem Polyneuropathy due to diabetes mellitus type I (196055798) Type 1 diabetes mellitus with diabetic polyneuropathy (E10.42) Active confirmed Vital Signs Blood pressure diastolic 80 mm Hg 05/01/2024 Height 5ft 8in in 05/01/2024 Blood pressure systolic 140 mm Hg 05/01/2024 Weight 219 lbs 05/01/2024 BMI 33.3 kg/m2 05/01/2024 Procedures Procedure Date Ordered Date Performed Result Body Sit e 80897-GIFCLQI NAIL, 6 OR MORE 09/16/2023 N/A 58986-ELVO SKIN LESIONS, OVER 4 09/16/2023 N/A 23155-FFUCRCH NAIL, 6 OR MORE 01/24/2024 N/A 16210-Tdtzyouo Plate 01/24/2024 N/A 49634-RMNX SKIN LESIONS, OVER 4 01/24/2024 N/A 89505-DIFVSDR NAIL, 6 OR MORE 05/01/2024 N/A 38957-VZLA SKIN LESIONS, OVER 4 05/01/2024 N/A Encounters Encounter Location Date Provider Diagnosis [facility] [place] [address] [place] [address] 09/16/2023 Matilda Black Type 1 diabetes mellitus with diabetic polyneuropathy E10.42 and Tinea unguium B35.[address] [address] 01/24/2024 Matilda Gonzalez Type 1 diabetes mellitus with diabetic polyneuropathy E10.42 ; Tinea unguium B35.1 and Ingrown nail L60.[address] [address] 05/01/2024 Matilda Gonzalez Type 1 diabetes mellitus with diabetic polyneuropathy E10.42 ; Other hammer toe(s) (acquired), right foot M20.41 ; Tinea unguium B35.1 and Other hammer toe(s) (acquired), left foot M20.[address] [address] 09/16/2023 Matilda Gonzalez [address] [address] 10/21/2023 Matilda Gonzalez Assessments Encounter Date Diagnosis [...] Treatment Pending Test Test Name Order Date 52654-OVZSJRR NAIL, 6 OR MORE 01/07/2012 79596-XBJARKF NAIL, 6 OR MORE 04/11/2012 23041-XXDPLXH NAIL, 6 OR MORE 07/11/2012 98147-RFNRADM NAIL, 6 OR MORE 10/03/2012 44992-RQZTWVE NAIL, 6 OR MORE 12/19/2012 22531-SJHZKTN NAIL, 6 OR MORE 03/23/2013 87290-FCEZFYV NAIL, 6 OR MORE 06/21/2013 33092-OBQBEOE NAIL, 6 OR MORE 09/20/2013 00804-QRTNXRF NAIL, 6 OR MORE 12/07/2013 95499-ZVOYEVS NAIL, 6 OR MORE 03/14/2014 17842-BMWRTJA NAIL, 6 OR MORE 06/20/2014 85494-VBPVXHK NAIL, 6 OR MORE 08/23/2014 96072-JCETFQR NAIL, 6 OR MORE 11/22/2014 04329-QJOOBEV NAIL, 6 OR MORE 02/13/2015 51296-JFWNHWB NAIL, 6 OR MORE 05/15/2015 32104-YKTWNTV NAIL, 6 OR MORE 08/12/2015 74496-FTAWXMQ NAIL, 6 OR MORE 11/11/2015 31526-VPWYYSV NAIL, 6 OR MORE 02/19/2016 22768-JTZEKSW NAIL, 6 OR MORE 05/21/2016 97635-MIIIWSY NAIL, 6 OR MORE 10/05/2016 80533-FAHXGAA NAIL, 6 OR MORE 01/11/2017 40717-XIFWPRN NAIL, 6 OR MORE 04/12/2017 56198-REIPGCP NAIL, 6 OR MORE 09/16/2017 51400-YCMHOQJ NAIL, 6 OR MORE 12/16/2017 85204-CDTKLZP NAIL, 6 OR MORE 03/17/2018 52142-CECZCIS NAIL, 6 OR MORE 07/14/2018 14392-ZKHTUVX NAIL, 6 OR MORE 01/16/2019 58983-ZKLGYXH NAIL, 6 OR MORE 08/17/2019 21270-MNOUHDZ NAIL, 6 OR MORE 11/20/2019 09986-JIIADXM NAIL, 6 OR MORE 03/07/2020 30540-FMBZANI NAIL, 6 OR MORE 06/06/2020 00977-YSPLAZZ NAIL, 6 OR MORE 09/12/2020 88135-LKUELRX NAIL, 6 OR MORE 12/26/2020 90990-JTKGZGZ NAIL, 6 OR MORE 04/07/2021 74357-GAPEEBX NAIL, 6 OR MORE 07/07/2021 87707-KMBNUAS NAIL, 6 OR MORE 10/13/2021 00732-WPLXTOA NAIL, 6 OR MORE 01/12/2022 09920-JWRVTCG NAIL, 6 OR MORE 06/04/2022 89367-RMOKLQO NAIL, 6 OR MORE 08/24/2022 69144-XAINRNO NAIL, 6 OR MORE 11/19/2022 55702-TFTNLTE NAIL, 6 OR MORE 02/08/2023 83009-FMVNMDJ NAIL, 6 OR MORE 05/20/2023 48635-QAYNTIJ NAIL, 6 OR MORE 09/16/2023 74841-QHIQNAE NAIL, 6 OR MORE 01/24/2024 39916-YNYDIQI NAIL, 6 OR MORE 05/01/2024 96888-Nbdrnnja Plate 01/24/2024 85460-Tzresmim Plate 08/24/2022 40125-Mxwocndu Plate 10/13/2021 10844-Rdcutjfj Plate 07/07/2021 72753-Cywanspy Plate 11/22/2014 82801-Nizqmkhj Plate 08/23/2014 32775-Hfmxyxdu Plate 06/20/2014 33273-Lavymsmm Plate 03/14/2014 31396-Hhcrohbp Plate 12/07/2013 19676-Cngenlhk Plate 09/20/2013 01917-Arpzemaa Plate 06/21/2013 11222-Wrzdlmyd Plate Each Additional 61115-Rnfxucwv Plate Each Additional 10/2021 99863, J0702- INJECT or DRAIN, JOINT/BUR SA 06/06/2020 70930-IEKM SKIN LESIONS, OVER 4 07/08/19 22 43980-EXYA SKIN LESIONS, OVER 4 04/07/19 22 98705-CSPL SKIN LESIONS, OVER 4 12/27/19 21 21291-BORM SKIN LESIONS, OVER 4 10/14/19 22 90816-OSMR SKIN LESIONS, OVER 4 01/13/20 22 23384-FUIH SKIN LESIONS, OVER 4 08/25/19 23 49459-AAVZ SKIN LESIONS, OVER 4 06/05/19 23 47392-BDYX SKIN LESIONS, OVER 4 09/16/19 24 98483-UENA SKIN LESIONS, OVER 4 05/20/19 24 49773-NNGC SKIN LESIONS, OVER 4 02/09/20 23 08133-PFMI SKIN LESIONS, OVER 4 11/20/19 23 95372-SGKJ SKIN LESIONS, OVER 4 01/24/20 24 45426-IJLX SKIN LESIONS, OVER 4 05/02/19 25 08759-MJDK SKIN LESIONS, 2 TO 4 06/07/19 21 01995-CDYE SKIN LESIONS, 2 TO 4 09/13/19 21 82171-JOHO SKIN LESIONS, 2 TO 4 03/07/19 21 43955-VEFH SKIN LESIONS, 2 TO 4 11/20/19 20 97604-EQOE SKIN LESIONS, 2 TO 4 08/17/19 20 55130-AOYM SKIN LESIONS, 2 TO 4 01/17/20 19 89521-RFTN SKIN LESIONS, 2 TO 4 07/15/19 19 84470-ENTF SKIN LESIONS, 2 TO 4 03/17/19 19 48114-DTWC SKIN LESIONS, 2 TO 4 12/17/19 18 01472-QLMJ SKIN LESIONS, 2 TO 4 09/17/19 18 11490-GPCI SKIN LESIONS, 2 TO 4 01/12/20 17 84067-AQQL SKIN LESIONS, 2 TO 4 04/12/19 18 91068-JQFL SKIN LESIONS, 2 TO 4 06/22/19 14 61707-GALJ SKIN LESIONS, 2 TO 4 09/21/19 14 83254-RBMP SKIN LESIONS, 2 TO 4 12/08/19 14 00011-IFLY SKIN LESIONS, 2 TO 4 03/23/19 14 13987-ISJS SKIN LESIONS, 2 TO 4 10/04/19 13 82993-BATR SKIN LESIONS, 2 TO 4 07/12/19 13 87552-LAEX SKIN LESIONS, 2 TO 4 03/14/19 15 91384-SURB SKIN LESIONS, 2 TO 4 06/21/19 15 94399-IVEJ SKIN LESION 05/21/2016 85906-YXBN SKIN LESION 10/05/2016 Next Appt Details Provider Name:Matilda Gonzalez , 08/07/2024 01:30:00 PM, [address] [facility], [place], [address], Insurance Providers Payer Name Payer Address Payer Phone Subscriber Number Group Number Insured Name Patient Relationship to Insured Coverage Start Date Coverage End Date Medicare National Govt Sv[employer] [address] [place] [address] [id number] Matty Mejia Self - patient is the insured Medical (General) History Medical History History ICD Code anxiety depression diabetic headaches/migraines high blood pressure psychiatric disorder reflux chicken pox Surgical History Surgery Date(Month/Year) Hospitalization History Reason Date(Month/Year) [place] [facility] [place] [facility] [place] sleep study 12/2014
--- OUTSIDE RECORDS SUMMARY | 2024-06-29 16:50 | XMS_ITS ---
Author Organization [facility] Address [address] [facility] [place] [address] Care Team Providers Care Hoop Maker Helper Machine Name Role Phone Pao ZHANG, Rowena Garrido Primary Care Provider Un available Black, Matilda Unavailable [phone] Allergies No Known Allergies REASON FOR VISIT [...] e a day for 30 day(s) Not-Taking Coy Carbonate 600 MG as directed Ora lly [...] Once a day for 30 day(s) Active [place] 3 Active Trulicity Active traZODone HCl Active [...] No Points 0 Interpretation Negative Vital Signs Height 5ft 8in in 05/01/2024 Weight 219 lbs 05/01/2024 BMI 33.3 kg/m2 05/01/2024 Blood pressure systolic 140 mm Hg 05/02/19 25 Blood pressure diastolic 80 mm Hg 025 Procedures Procedure Date Ordered Date Performed Result Body Sit e 75129-OTKGXIP NAIL, 6 OR MORE 05/01/2024 N/A 89793-INKK SKIN LESIONS, OVER 4 05/01/2024 N/A Encounters Encounter Location Date Provider Diagnosis [facility] [place] [address] [place] [address] 05/01/2024 Matilda Gonzalez Type 1 diabetes mellitus [...] INSTRUCTIONS.pdf) Pending Test Test Name Order Date 06747-LMAEAIF NAIL, 6 OR MORE 05/01/2024 19813-IDVS SKIN LESIONS, OVER 4 05/02/19 25 Next Appt Details Follow Up: 3 Months, Reason: Provider Name:Matilda Gonzalez , 08/07/2024 01:30:00 PM, [address] [place], [address], Procedure Notes * Category Sub-Category Detail Notes [...] use of a nail nipper and/or dremel-type tooth grinder, to a more viable healthy nail [...] to maintain effectiveness in symptomatic relief - 53800 Keratoma Treatment Parring or Cutting o f [...] instrumentation by the physician of record - 18092 Progress Notes * Opal MCGEEB:[birth year] (44 yo M)Acc No.[id number]:05/01/2024 Progress Note Patient:?VARGASLudwig Provider:?Matilda Gonzalez DPM :1980???Age:44 Y???Sex:Male Christo e:05/01/2024 Address: [address], [place] Pcp:Antonella Swan Subjective: * Chief Complaints: * [...] stic Procedure:?overnight [place] [place] bad hip [facility] [place]23 * Family History:?Mother: dece ased.?Father: alive, [...] morning meal Orally Once a day Trulicity [place] 3 hydrOXYzine HCl 25 MG Tablet as [...] Orally Once a day Taking Trulicity Taking [place] 3 Taking hydrOXYzine HCl 25 MG Tablet [...] UNIT/ML Suspension as directed Subcutaneous Fish Oil Coy Carbonate 600 MG Capsule as directed Orally [...] as directed Subcutaneous Not-Taking/PRN Fish Oil Not-Taking/PRN Coy Carbonate 600 MG Capsule as directed Orally [...] 2.?Type 1 diabetes mellitus with diabetic polyneuropathy?Procedure: 13802-HYHT SKIN LESIONS, OVER 4 3.?Tinea unguium?Procedure: 66584-EZUJBHT NAIL, 6 OR MORE * Procedures:?Debride Nail [...] use of a nail nipper and/or dremel-type tooth grinder, to a more viable healthy nail [...] to maintain effectiveness in symptomatic relief - 03222.?Keratoma Treatment:?Parring or Cutting of Benign Hyperkeratotic Lesion(s)?(-57) [...] instrumentation by the physician of record - 00578.? * Procedure Codes:?69566 DEBRI DE NAIL, 6 OR MORE, Modifiers: XS 61905 TRIM SKIN LESIONS, OVER 4, Modifiers: XS [...] Gonzalez DPM Date:?2024 Generated for Rukhsana melton/Sylvia/Hans on:?06/29/2024 04:49 PM EDT History and Physical [...]
== END 2024-06-29 14:50 | disposition home or self-care (01) ==
LOC: HO.HMGCLR 14:49
PROVIDERS: PCP Internal Medicine
DX: E11.42 Type 2 diabetes mellitus with diabetic polyneuropathy (principal); B35.1 Tinea unguium; L84 Corns and callosities; E11.22 Type 2 diabetes mellitus with diabetic chronic kidney disease; N18.9 Chronic kidney disease, unspecified
CPT/HCPCS: 36415; 85025; 96127; 99212

== ENCOUNTER 2024-06-29 15:09 | Outpatient (AMB) | payer MEDICARE, MEDICAID, SELFPAY ==
--- NOTE | 2024-06-29 15:12 | A.OFFPC_ITS ---
Vital Signs 06/29/24 15:14 Height 5 ft 8 in Weight 220 lb BMI 33.4 BP 110/64 Blood Pressure Location Rt brachial Position Sitting Respiration 16 Pulse 91 Pulse Source Pulse Oximeter Temp 97.8 F Temp Source Oral Pulse Oximetry (%) 96 Oxygen Delivery Method Room Air Intake Visit Reasons: fitting for sneakers Intake Note: Pt is here today for fitting for sneakers Allergies No Known Allergies Allergy (Verified 07/02/24 18:58) Medication List - Last Reconciled 07/02/24 by Rowena Cedeno MD acetaminophen (Tylenol Extra Strength) 500 mg PO Q12H PRN albuterol sulfate 90 mcg/actuation 2 puffs inhalation Q6H PRN bisacodyl (Dulcolax (bisacodyl)) 10 mg (2 x 5 mg) PO BEDTIME PRN 2 days clozapine 200 mg PO BEDTIME docusate sodium 100 mg PO BID empagliflozin 25 mg PO DAILY fenofibrate 160 mg PO DAILY ferrous fumarate 324 mg PO DAILY flash glucose scanning reader ([employer] Maria D 2 [place]) As directed flash glucose sensor ([employer] Maria D 2 Sensor kit) As directed fluticasone propionate 50 mcg/actuation (Flonase Allergy Relief) 1 spray intranasal BEDTIME 30 days haloperidol 5 mg PO BID hydroxyzine HCl 25 mg PO DAILY insulin degludec (Tresiba U-100 Insulin) 50 units subcut DAILY lorazepam 1 mg PO DAILY PRN omeprazole 20 mg PO BID pen needle, diabetic (Comfort EZ Pen [place]) inject insulin twice daily rosuvastatin 5 mg PO DAILY semaglutide (Ozempic) 1 mg subcut TH@0900 umeclidinium-vilanterol 62.5-25 mcg/actuation (Anoro Ellipta) 1 ea PO DAILY Tobacco use date assessed: 06/29/24 Dental Screening Dental Screen Date: 06/29/24 Did you have a dental visit in the last 12 months?: Yes Did you have a dental problem in the last 6 months where you did not have access to dental care?: No Was dental information given to patient?: Patient has dentist HPI fitting for sneakers HPI Details 44-year-old male with , CKD, type 2 sabina betes mellitus, currently followed by Dr. Bhatia, here today for diabetic foot exam and requesting a prescription for diabetic shoes. Diabetes mellitus is currently not well controlled, with latest hemoglobin A1c at 7.9% last 06/17/2024. He currently sees Dr. Gonzalez his stone unloader, who has prescribed him extra depth orthopedic shoes with customized heat molded multi density innersoles. . He is currently being seen for a preulcerative callus and has onychomycotic toenails and diabetic polyneuropathy. [facility] Medical History (Updated 07/02/24 @ 19:07 by Rowena Cedeno MD) Pre-ulcerative calluses CKD (chronic kidney disease) stage 3, GFR 30-59 ml/min Tinea unguium Type 2 diabetes mellitus with diabetic polyneuropathy CKD (chronic kidney disease) stage 4, GFR 15-29 ml/min Type 2 diabetes mellitus with complication, with long-term current use of insulin Uncontrolled diabetes mellitus with hyperglycemia Hypercalcemia Noncompliance with medication regimen Rash and nonspecific skin eruption Tremor Vitamin D deficiency Mixed dyslipidemia Restrictive airway disease Type 2 diabetes mellitus with other diabetic kidney complication Solitary pulmonary nodule on lung CT Smoker unmotivated to quit Obesity (BMI 30-39.9) Schizoaffective disorder Essential hypertension Surgical History No pertinent past surgical history Family History Father Unknown family medical history Mother Unknown family medical history Brother No problems noted. Sister No problems noted. Social History Housing: Other Housing Other:: shelter Alcohol intake: never Patient Tobacco Use Status: Current everyday Tobacco user Cigarette Packs Per Day: 2 e-Cigarette/Vaping Use: Never Used Substance Use Type: Marijuana Advance Directives Date on File: 12/06/23 service: No Current occupational status: disabled Cognitive needs: No Hearing needs: No Vision needs: Yes Questionnaire PHQ-9 Over the last 2 weeks, how often have you been bothered by any of the following problems? 1. Little interest or pleasure in doing things: nearly every day 2. Feeling down, depressed, or hopeless: not at all 3. Trouble falling or staying asleep, or sleeping too much: several days 4. Feeling tired or having little energy: not at all 5. Poor appetite or overeating: several days 6. Feeling bad about yourself - or that you are a failure or have let yourself or your family down: not at all 7. Trouble concentrating on things, such as reading the newspaper or watching television: not at all 8. Moving or speaking so slowly that other people could have noticed. Or the opposite - being so fidgety or restless that you have been moving around a lot more than usual: not at all 9. Thoughts that you would be better off or of hurting yourself in some way: not at all Total score: 5 Depression Screening Interpretation: Negative Depression Screening Done: Yes 54632 - PHQ-9 Billing: Yes Source: Developed by Drs. Mauro Lunsford, Kimmie Rizvi, Remy Mora and colleagues, with an educational dale from [employer]. Thrive Questionnaire Date Thrive assessed: 06/29/24 I am a: Patient What is your living situation today?: I have a steady place to live Within the past 12 months, did the food you bought not last and you didn't have the money to get more?: Never true Within the past 12 months, did you worry whether your food would run out before you got money to buy more?: Never true Do you have trouble paying for medicines?: No Do you have trouble getting transportation to medical appointments?: No Do you have trouble paying your heating and electricity bill?: No Do you have trouble taking care of your child, family member or friend?: No Do you have trouble with day-to-day activities such as bathing, preparing meals, shopping, managing finances, etc.?: No Are you currently unemployed and looking for a job?: No Are you interested in more education?: No Please select the resources that you would like help with: None Currently or been in a relationship where the following occur: I choose not to answer THRIVE Score: 0 AUDIT C Alcohol Use Questionnaire (AUDIT-C) 1. How often do you have a drink containing alcohol?: Never Total Score: 0 WILBERTO-7 AMB Questionnaire WILBERTO-7 Date WILBERTO - 7 assessed: 06/29/24 Feeling nervous, anxious, or on edge: 0 = Not at all Not being able to stop or control worryin = Not at all Worrying too much about different things: 0 = Not at all Trouble relaxin = Several days Being so restless that it is hard to sit still: 0 = Not at all Becoming easily annoyed or irritable: 0 = Not at all Feeling afraid as if something awful might happen: 0 = Not at all Total WILBERTO-7 score (0-4 normal; 5-9 mild; 10-14 moderate; 15-21 severe): 1 Source: Developed by Drs. Mauro Lunsford, Kimmie Rizvi, Remy Mora and colleagues, with an educational dale from [employer]. WILBERTO-7 Assessment Billing WILBERTO-7 Assessment Tool: WILBERTO-7 Assessment 68213 Review of Systems Const All systems reviewed & are unremarkable except as noted in HPI and below Physical exam (Primary Care) Vital Signs: Last Vital Signs Temp 97.8 F 06/29/24 15:14 Pulse 91 06/29/24 15:14 Resp 16 06/29/24 15:14 BP 110/64 06/29/24 15:14 Pulse Ox 96 06/29/24 15:14 Oxygen Delivery Method Room Air 06/29/24 15:14 BMI result Body Mass Index 33.4 Tobacco/Smoking Status: Tobacco use Status Tobacco use date assessed 06/29/24 06/29/24 15:17 Patient Tobacco Use Status Current everyday Tobacco 06/29/24 15:13 e-Cigarette/Vaping Use Never Used 06/29/24 15:13 PHQ-9: PHQ-9 Score PHQ-9: Total score 5 07/02/24 19:00 Depression Screening Interpretation: Negative Thrive Assessment: Date of Thrive Assessment Date Thrive assessed 06/29/24 06/29/24 15:17 Currently or been in a relationship where the following occur: I choose not to answer Const Other: Obese, Alert oriented x3, accompanied by caregiver, ambulatory normal gait Resp Auscultation: clear to auscultation bilaterally Cardio Other: S1-S2 present regular rate and rhythm GI Other: Obese, normal bowel sounds, soft, nontender with no mass palpated Extrem Other: Discolored, thickened toenails in both feet, preulcerative callus noted on both feet, decreased sensation by monofilament testing in both feet Coding Level of Care Code Est Pt Level 3 (41484) Diagnoses Type 2 diabetes mellitus with diabetic polyneuropathy E11.42 Tinea unguium B35.1 Pre-ulcerative calluses L84 Additional Codes PHQ-9 - 32543 - PHQ-9 Billing: Yes ([id number]) WILBERTO-7 Assessment Billing - WILBERTO-7 Assessment Tool: WILBERTO-7 Assessment 16543 ([id number]) Assessment & Plan Assessment & Plan (1) Type 2 diabetes mellitus with diabetic polyneuropathy: Comment: Followed by Podiatry, Dr. Gonzalez Code(s): E11.42 - Type 2 diabetes mellitus with diabetic polyneuropathy Category: Medical (2) Tinea unguium: Comment: Followed by Code(s): B35.1 - Tinea unguium Category: Medical (3) Pre-ulcerative calluses: Code(s): L84 - Corns and callosities Category: Medical Plan Currently followed by Dr. Gonzalez, who has prescribed extra depth orthopedic shoes with customized heat molded multi density innersoles. Currently followed by Dr. Bhatia [facility] endocrine clinic for his diabetes mellitus, and sees Dr. Ye for his chronic kidney disease
[2024-06-29 15:14] VITALS: BP 110/64; PULSE 91; RESP 16; TEMP 36.6; O2SAT 96; BMI 33.4
== END 2024-06-29 16:17 | disposition home or self-care (01) ==
LOC: HO.HMCC 15:10
PROVIDERS: PCP Internal Medicine; Visit Provider Internal Medicine
DX: E11.42 Type 2 diabetes mellitus with diabetic polyneuropathy (principal); B35.1 Tinea unguium; L84 Corns and callosities

== ENCOUNTER 2024-07-31 10:05 | Outpatient (REF) | payer MEDICARE, MEDICAID, SELFPAY ==
--- OUTSIDE RECORDS SUMMARY | 2024-07-31 10:59 | XMS_ITS | Patient Health Record ---
Author Organization [facility] Address [address] [facility] [place] [address] Care Team Providers Care Junior Administrative Assistant Name Role Phone Pao ZHANG, Rowena Garrido Primary Care Provider Un available Black, Matilda Unavailable [phone] Allergies No Known Allergies Results Component Value [...] tablet Orall y Once a day Active [place] Carbonate 600 MG as directed Ora lly Twice a day Not-Taking [place] 3 Active Losartan Potassium 25 MG 1 [...] Problem Acquired hammer toe of right foot (2620932938789437 ) Other hammer toe(s) (acquired), right foot (M20.41) Active confirmed Problem Acquired hammer toe of left foot (3974026075453247 ) Other hammer toe(s) (acquired), left foot (M20.42) Active confirmed Problem Localized, primary osteoarthritis of the ankle and/or foot (812412621) Primary osteoarthritis, right ankle and foot (M19.071) Active confirmed Problem Polyneuropathy due to diabetes mellitus type I (759863541) Type 1 diabetes mellitus with diabetic polyneuropathy (E10.42) Active confirmed Vital Signs Blood pressure diastolic 80 mm Hg 05/01/2024 Height 5ft 8in in 05/01/2024 Blood pressure systolic 140 mm Hg 05/01/2024 Weight 219 lbs 05/01/2024 BMI 33.3 kg/m2 05/01/2024 Procedures Procedure Date Ordered Date Performed Result Body Sit e 45498-CFMPNTC NAIL, 6 OR MORE 09/16/2023 N/A 15383-OZIA SKIN LESIONS, OVER 4 09/16/2023 N/A 74636-DABIASE NAIL, 6 OR MORE 01/24/2024 N/A 69586-Kiusdzpv Plate 01/24/2024 N/A 78968-JWUI SKIN LESIONS, OVER 4 01/24/2024 N/A 32827-KMWH SKIN LESIONS, OVER 4 05/01/2024 N/A 18285-ZABWWZB NAIL, 6 OR MORE 05/01/2024 N/A Encounters Encounter Location Date Provider Diagnosis [facility] [place] [address] [place] [address] 09/16/2023 Matilda Black Type 1 diabetes mellitus with diabetic polyneuropathy E10.42 and Tinea unguium B35.[address] [address] 01/24/2024 Matilda Gonzalez Type 1 diabetes mellitus with diabetic polyneuropathy E10.42 ; Tinea unguium B35.1 and Ingrown nail L60.[address] [address] 05/01/2024 Matilda Gonzalez Type 1 diabetes mellitus with diabetic polyneuropathy E10.42 ; Other hammer toe(s) (acquired), right foot M20.41 ; Tinea unguium B35.1 and Other hammer toe(s) (acquired), left foot M20.[address] [address] 09/16/2023 Matilda Gonzalez [address] [address] 10/21/2023 Matilda Gonzalez Assessments Encounter Date Diagnosis [...] Treatment Pending Test Test Name Order Date 28658-VYCZKSV NAIL, 6 OR MORE 01/07/2012 72915-VRJJOBX NAIL, 6 OR MORE 04/11/2012 06099-VLCFKRW NAIL, 6 OR MORE 07/11/2012 40515-WZAWESK NAIL, 6 OR MORE 10/03/2012 76211-ONNFLCQ NAIL, 6 OR MORE 12/19/2012 29342-BCZZCPN NAIL, 6 OR MORE 03/23/2013 25711-VZKYLEC NAIL, 6 OR MORE 06/21/2013 04940-CNAARGC NAIL, 6 OR MORE 09/20/2013 02800-NIACTAR NAIL, 6 OR MORE 12/07/2013 01794-QLGSRXL NAIL, 6 OR MORE 03/14/2014 85542-OHPYAKG NAIL, 6 OR MORE 06/20/2014 56722-HWGVIQQ NAIL, 6 OR MORE 08/23/2014 39635-IXHBRDI NAIL, 6 OR MORE 11/22/2014 33790-FVQFAEU NAIL, 6 OR MORE 02/13/2015 11303-NQDPZDV NAIL, 6 OR MORE 05/15/2015 81132-GKIIWUT NAIL, 6 OR MORE 08/12/2015 12131-TXYPUFX NAIL, 6 OR MORE 11/11/2015 06852-CEQOVJQ NAIL, 6 OR MORE 02/19/2016 78075-EUVPWYS NAIL, 6 OR MORE 05/21/2016 99179-AMJQKOG NAIL, 6 OR MORE 10/05/2016 99095-XJLRODQ NAIL, 6 OR MORE 01/11/2017 68508-DXVNYXZ NAIL, 6 OR MORE 04/12/2017 10975-BCFKOLV NAIL, 6 OR MORE 09/16/2017 00174-GNDWCLA NAIL, 6 OR MORE 12/16/2017 14541-MHQBVKZ NAIL, 6 OR MORE 03/17/2018 87521-VFFMFPT NAIL, 6 OR MORE 07/14/2018 48753-PAMFEFF NAIL, 6 OR MORE 01/16/2019 86791-FMLBDOV NAIL, 6 OR MORE 08/17/2019 03800-QFXDHQL NAIL, 6 OR MORE 11/20/2019 90500-KLVXYSU NAIL, 6 OR MORE 03/07/2020 83780-SEEIHAW NAIL, 6 OR MORE 06/06/2020 06375-SHKGQBP NAIL, 6 OR MORE 09/12/2020 52959-PVSHERU NAIL, 6 OR MORE 12/26/2020 65917-GLVYVUI NAIL, 6 OR MORE 04/07/2021 07787-RAGRJWK NAIL, 6 OR MORE 07/07/2021 78410-QWPRRBO NAIL, 6 OR MORE 10/13/2021 07419-QCVAOZM NAIL, 6 OR MORE 01/12/2022 26127-BHQJPCH NAIL, 6 OR MORE 06/04/2022 51084-XTCJXKK NAIL, 6 OR MORE 08/24/2022 36417-WEMMDSY NAIL, 6 OR MORE 11/19/2022 78782-GHBQGCX NAIL, 6 OR MORE 02/08/2023 66605-TAOOZPY NAIL, 6 OR MORE 05/20/2023 80692-NYRBOLZ NAIL, 6 OR MORE 09/16/2023 87100-RHVGXKE NAIL, 6 OR MORE 01/24/2024 02672-RDMRVKB NAIL, 6 OR MORE 05/01/2024 28958-Vguxqgvw Plate 01/24/2024 31844-Eifzqvnz Plate 08/24/2022 65110-Pnahnifd Plate 10/13/2021 10109-Xxdyoclm Plate 07/07/2021 35138-Zrmzthcm Plate 11/22/2014 61866-Lkzkymti Plate 08/23/2014 55314-Csrhepsv Plate 06/20/2014 55708-Ekudycab Plate 03/14/2014 17046-Ddsecdmc Plate 12/07/2013 88505-Ezmwknhu Plate 09/20/2013 51708-Qvrdzdfk Plate 06/21/2013 90181-Wocoifex Plate Each Additional 24544-Wvjberoc Plate Each Additional 10/2021 41040, J0702- INJECT or DRAIN, JOINT/BUR SA 06/06/2020 66147-GKIM SKIN LESIONS, OVER 4 07/08/19 22 59475-IJOM SKIN LESIONS, OVER 4 04/07/19 22 50654-OGWR SKIN LESIONS, OVER 4 12/27/19 21 22776-KXAL SKIN LESIONS, OVER 4 10/14/19 22 71537-CZMV SKIN LESIONS, OVER 4 01/13/20 22 83448-ARKB SKIN LESIONS, OVER 4 08/25/19 23 66255-YNZS SKIN LESIONS, OVER 4 06/05/19 23 19778-SJAC SKIN LESIONS, OVER 4 09/16/19 24 17914-EWWF SKIN LESIONS, OVER 4 05/20/19 24 61018-TALZ SKIN LESIONS, OVER 4 02/09/20 23 82630-HTBQ SKIN LESIONS, OVER 4 11/20/19 23 58658-DFPW SKIN LESIONS, OVER 4 01/24/20 24 17301-LFVA SKIN LESIONS, OVER 4 05/02/19 25 57780-SBPI SKIN LESIONS, 2 TO 4 06/07/19 21 45465-JQBS SKIN LESIONS, 2 TO 4 09/13/19 21 42116-PXLF SKIN LESIONS, 2 TO 4 03/07/19 21 44214-YTLH SKIN LESIONS, 2 TO 4 11/20/19 20 31227-VULT SKIN LESIONS, 2 TO 4 08/17/19 20 08478-BVHH SKIN LESIONS, 2 TO 4 01/17/20 19 26848-LTIS SKIN LESIONS, 2 TO 4 07/15/19 19 59511-QOPT SKIN LESIONS, 2 TO 4 03/17/19 19 75380-MSML SKIN LESIONS, 2 TO 4 12/17/19 18 57895-VOPI SKIN LESIONS, 2 TO 4 09/17/19 18 05095-OUKH SKIN LESIONS, 2 TO 4 01/12/20 17 94239-FAFS SKIN LESIONS, 2 TO 4 04/12/19 18 73315-VTDH SKIN LESIONS, 2 TO 4 06/22/19 14 45952-INPJ SKIN LESIONS, 2 TO 4 09/21/19 14 51518-WPKL SKIN LESIONS, 2 TO 4 12/08/19 14 90136-YRCX SKIN LESIONS, 2 TO 4 03/23/19 14 62243-NMKS SKIN LESIONS, 2 TO 4 10/04/19 13 79771-WSOP SKIN LESIONS, 2 TO 4 07/12/19 13 97205-TXGK SKIN LESIONS, 2 TO 4 03/14/19 15 86762-BVKF SKIN LESIONS, 2 TO 4 06/21/19 15 28316-KCMN SKIN LESION 05/21/2016 20112-EPQB SKIN LESION 10/05/2016 Next Appt Details Provider Name:Matilda Gonzalez , 08/07/2024 01:30:00 PM, [address] [facility], [place], [address], Insurance Providers Payer Name Payer Address Payer Phone Subscriber Number Group Number Insured Name Patient Relationship to Insured Coverage Start Date Coverage End Date Medicare National Govt Svcs Inc [address] [place] [address] [id number] Matty Mejia Self - patient is the insured Medical (General) History Medical History History ICD Code anxiety depression diabetic headaches/migraines high blood pressure psychiatric disorder reflux chicken pox Surgical History Surgery Date(Month/Year) Hospitalization History Reason Date(Month/Year) bad hip [facility] [place] [facility] [place] overnight sleep study 12/2014
[2024-07-31 13:08] LABS: MANUAL DIFF FLAG NO
[2024-07-31 13:18] LABS: Basophils Percent Auto 0.1 % (0-2); Eosinophils Percent Auto 0.1 % (0-4); Hematocrit 45.7 % (42.0-52.0); Hemoglobin 15.9 g/dl (14.0-18.0); Imm Gran Abs Auto 0.05 X10*3/uL (0.00-0.03); Imm Gran Pct Auto 0.6 % (0.0-0.4); Lymphocytes Absolute Auto 2.5 X10*3/uL (1.2-4.9); Lymphocytes Percent Auto 29.9 % (20-40); Mean Corpuscular HGB Conc 34.8 g/dl (31.0-36.0); Mean Corpuscular Hemoglobin 28.2 pg (27.0-33.0); Mean Platelet Volume 10.3 fL (9.4-12.4); Monocytes Absolute Auto 0.6 X10*3/uL (0.1-1.2); Monocytes Percent Auto 7.3 % (2-11); Neutrophils Absolute Auto 5.1 x10*3/uL (2.0-8.3); Platelet Count 208 X10*3/uL (160-400); Red Blood Count 5.64 X10*6/uL (4.60-5.80); Red Cell Distribution Width 14.9 % (11.0-16.0); White Blood Count 8.2 X10*3/uL (4.8-10.8)
== END 2024-07-31 10:06 | disposition home or self-care (01) ==
LOC: HO.HMGCLR 10:05
PROVIDERS: PCP Internal Medicine; Referring Provider Internal Medicine
DX: Z79.899 Other long term (current) drug therapy (principal)
CPT/HCPCS: 36415; 85025

== ENCOUNTER 2024-08-30 12:43 | Outpatient (REF) | payer MEDICARE, MEDICAID, SELFPAY ==
--- NOTE | ~2024-08-30 | CT_ITS ---
EXAMINATION: CT CHEST WITHOUT CONTRAST CLINICAL INFORMATION: Pulmonary nodules. COMPARISON: January 26, 2023. TECHNIQUE: Multidetector volumetric CT imaging of the chest was done. Axial MIP volume rendering provided. Sagittal and coronal reformatted images were obtained. This CT examination was performed using dose optimization techniques as appropriate, variously including the following: *Automated exposure control *Adjustment of mA and/or kV according to patient size (this includes techniques or standardized protocols for targeted exams where dose is matched to indication/reason for exam; i.e. extremities or head) *Use of iterative reconstruction technique DLP: 233 mGy centimeter. 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 Patient's large body habitus LUNGS: Right lun mm noncalcified pulmonary, right upper lung lobe. 2.5 mm noncalcified pulmonary nodule, right upper lung lobe. 1 mm noncalcified pulmonary nodule, right upper lung lobe. 1.5 mm calcified pulmonary nodule, right lower lung lobe likely granuloma. 6.5 mm noncalcified pulmonary nodule, right middle lung lobe. No bronchiectasis. No honeycombing. Left lung: No gross pulmonary nodules. No bronchiectasis. Honeycombing. MEDIASTINUM: No lymphadenopathy. No pericardial effusion. No pneumomediastinum. No hemopericardium. Heart is not enlarged. No aneurysm, thoracic aorta. CORONARY ARTERY CALCIFICATION: None visualized on this study. PLEURA: No pleural effusion. No pneumothorax. No calcified pleural plaques. AXILLA: No lymphadenopathy. UPPER ABDOMEN: Contracted gallbladder tiny cholelithiasis cannot be excluded. Fluid-filled prominent, likely recent medial. Small accessory spleen. Fatty appearance of the pancreas. OSSEOUS STRUCTURES: Multilevel spondylosis without acute fracture or listhesis. No lytic or blastic. CT/CT chest wo IV con IMPRESSION: Stable nonspecific pulmonary nodules, predominantly right lung. Fleischner guidelines were followed. Electronically signed by: Jg Jules MD 08/30/2024 02:24 PM EDT
--- OUTSIDE RECORDS SUMMARY | 2024-08-30 13:12 | XMS_ITS | Patient Health Record ---
[facility] Address [address] [place] [address] Care Team Providers Care Clinical Massage Therapist Name Role Phone Pao ZHANG, Rowena Garrido Primary Care Provider Un available Black, Matilda Unavailable [phone] Allergies No Known Allergies Results Component Value Reference Range Notes HEMOGLOBIN A1C (GLYCOHEMOGLO BIN) Reviewed date:03/11/2024 11:38:18 AM Interpretation: Performing Lab: Notes/Report: HEMOGLOBIN A1C % (HH) 8.2 Reason For Referral No Information Medications Medication SIG (Take, Route, Frequency, Duration) Notes Start Date End Date Status Fenofibrate 160 MG as directed Active Clozaril 200 MG 1 tablet Orally Once a day Active Tricor 145 MG 1 tablet Orally Once a day; Duration: 30 day(s) Not-Taking Cozaar 25 MG 1 tablet Orally Once a day Active metFORMIN HCl Not-Ta hola Jardiance 25 MG 1 tablet Once a day Active Extra Depth Orthopedic Shoes (1 Pair) with Customized Heat Molded Multidensity Innersoles (3 Pair) as directed Dx: IDDM/Polyneuropathy (E10.42), Hammertoe Foot Deformity (M20.41,M20.42), Preulcerative Skin Lesion(s) (L85.1) 03/31/2022 Active traZODone HCl Active Benadryl Not-Taking Colace 100 MG 1 capsule as needed Orally Once a day; Duration: 30 day(s) Active Vascepa Not-Taking Haldol Active Hydrocortisone 2.5 % as directed Externa lly to feet Twice a day; Duration: 30 days Not-Taking Ativan 1 MG as directed Active Invokana Not-Taking PriLOSEC 20 MG 1 capsule Orally Onc e a day; Duration: 30 day(s) Not-Taking Cleocin-T 1 % 1 application to affected area Externally Twice a day Not-Takin g hydrOXYzine HCl 25 MG as directed Orally Active Losartan Potassium 25 MG 1 tablet Orally Once a day Not-Taking Trulicity Active [place] 3 Active Anoro Ellipta 62.5-25 MCG/ACT 1 puff Inhalation Once a day Active Gemfibrozil 600 MG as directed Orally Twice a day Not-Taking Tresiba 100 UNIT/ML as directed Subcutaneous Active HumuLIN 70/30 (70-30) 100 UNIT/ML as directed Subcutaneous Not-Taking Rosuvastatin Calcium 5 MG 1 tablet Orall y Once a day Active Fish Oil Not-Taking Omeprazole 20 MG 1 capsule 30 minutes before morning meal Orally Once a day Active [place] Carbonate 600 MG as directed Ora lly Twice a day Not-Taking Lantus Not-Taking Ozempic Active Vitamin D Not-Taking Albuterol Sulfate Ac tive PriLOSEC Not-Taking Flonase Active Glucophage 1000 MG 1 tablet with meals Orally Twice a day; Duration: 30 day(s) Not-Taking Extra Depth Orthopedic Shoes (1 Pair) with Customized Heat Molded Multidensity Innersoles (3 Pair) as directed Dx: NIDDM/Polyneuropathy (E11.42), Hammertoe Foot Deformity (M20.41,M20.42), Preulcerative Skin Lesion(s) (L85.1 05/01/2024 Active Tylenol Not-Taking Immunizations Vaccine Route Administration Date Status Comme nts COVID-19 Pfizer BioNTech Vaccine Unknown 12/25/2020 Administered First Dose: 04/01/20 Second Dose: 04/22/2020 Influenza Unknown 11/23/2014 Administered Influenza Unknown 11/12/2016 Administered Influenza Unknown 11/08/2017 Administered Influenza Unknown 12/11/2021 Administered Influenza Unknown 05/20/2023 Refused Influenza Unknown 12/31/2023 Administered Pneumococcal Unknown 02/19/2016 Refused Social History Tobacco [...] Problem Acquired hammer toe of right foot (7799773925901095 ) Other hammer toe(s) (acquired), right foot (M20.41) Active confirmed Problem Acquired hammer toe of left foot (0940821008926845 ) Other hammer toe(s) (acquired), left foot (M20.42) Active confirmed Problem Localized, primary osteoarthritis of the ankle and/or foot (141703227) Primary osteoarthritis, right ankle and foot (M19.071) Active confirmed Problem Polyneuropathy due to diabetes mellitus type I (459326845) Type 1 diabetes mellitus with diabetic polyneuropathy (E10.42) Active confirmed Vital Signs Blood pressure diastolic 80 mm Hg 08/07/2024 Height 5ft8in in 08/07/2024 Blood pressure systolic 140 mm Hg 08/07/2024 Weight 220 lbs 08/07/2024 BMI 33.45 kg/m2 08/07/2024 Procedures Procedure Date Ordered Date Performed Result Body Sit e 55093-RSMPJNL NAIL, 6 OR MORE 09/16/2023 N/A 14457-WCVH SKIN LESIONS, OVER 4 09/16/2023 N/A 96265-MVYBLVN NAIL, 6 OR MORE 01/24/2024 N/A 17775-Qixfzfxg Plate 01/24/2024 N/A 70954-EEGA SKIN LESIONS, OVER 4 01/24/2024 N/A 28344-OMNTDXB NAIL, 6 OR MORE 05/01/2024 N/A 73485-IDNM SKIN LESIONS, OVER 4 05/01/2024 N/A 45870-JLRKBIR NAIL, 6 OR MORE 08/07/2024 N/A 85397-RGBJ SKIN LESIONS, OVER 4 08/07/2024 N/A Encounters Encounter Location Date Provider Diagnosis [address] [address] 09/16/2023 Matilda Gonzalez Type 1 diabetes mellitus with diabetic polyneuropathy E10.42 and Tinea unguium B35.[address] [address] 01/24/2024 Matildafelecia Gonzalez Type 1 diabetes mellitus with diabetic polyneuropathy E10.42 ; Tinea unguium B35.1 and Ingrown nail L60.[address] [address] 05/01/2024 Matildafelecia Gonzalez Type 1 diabetes mellitus with diabetic polyneuropathy E10.42 ; Other hammer toe(s) (acquired), right foot M20.41 ; Tinea unguium B35.1 and Other hammer toe(s) (acquired), left foot M20.[address] [address] 08/07/2024 Matilda Gonzalez Other hammer toe(s) (acquired), right foot M20.41 ; Metatarsalgia, left foot M77.42 ; Type 1 diabetes mellitus with diabetic polyneuropathy E10.42 ; Tinea unguium B35.1 ; Other hammer toe(s) (acquired), left foot M20.42 ; Pain in left foot M79.672 ; Pain in left ankle and joints of left foot M25.572 and Bursitis of intermetatarsal bursa of left foot M77.[address] [address] 09/16/2023 Matilda Gonzalez [address] [address] 10/21/2023 Matilda Gonzalez Assessments Encounter Date Diagnosis [...] mellitus with diabetic polyneuropathy (ICD-10 - E10.42) 08/07/2024 Other hammer toe(s) (acquired), right foot (ICD-10 - M20.41) 08/07/2024 Metatarsalgia, left foot (ICD-10 - M77.42) 08/07/2024 Type 1 diabetes mellitus with diabetic polyneuropathy (ICD-10 - E10.42) 05/01/2024 Tinea unguium (ICD-10 - B35.1) 01/24/2024 Tinea unguium (ICD-10 - B35.1) 09/16/2023 Tinea unguium (ICD-10 - B35.1) 05/01/2024 Other hammer toe(s) (acquired), left foot (ICD-10 - M20.42) 01/24/2024 Ingrown nail (ICD-10 - L60.0) 08/07/2024 Tinea unguium (ICD-10 - B35.1) 08/07/2024 Other hammer toe(s) (acquired), left foot (ICD-10 - M20.42) 08/07/2024 Pain in left foot (ICD-10 - M79.672) 08/07/2024 Pain in left ankle and joints of left foot (ICD-10 - M25.572) 08/07/2024 Bursitis of intermetatarsal bursa of left foot (ICD-10 - M77.52) Plan Of Treatment Pending Test Test Name Order Date 00207-JITMHRB NAIL, 6 OR MORE 01/07/2012 34043-GBIXCYZ NAIL, 6 OR MORE 04/11/2012 59593-KZYOVZU NAIL, 6 OR MORE 07/11/2012 25917-SMYFNJL NAIL, 6 OR MORE 10/03/2012 82965-WNWTPWT NAIL, 6 OR MORE 12/19/2012 13752-BPXEXUN NAIL, 6 OR MORE 03/23/2013 56230-VNWYTMI NAIL, 6 OR MORE 06/21/2013 31154-WLFTXHA NAIL, 6 OR MORE 09/20/2013 90761-QILHWYM NAIL, 6 OR MORE 12/07/2013 05594-AYKAIAL NAIL, 6 OR MORE 03/14/2014 91604-DDIEYLU NAIL, 6 OR MORE 06/20/2014 83245-OYVYJUU NAIL, 6 OR MORE 08/23/2014 44210-NJONWNE NAIL, 6 OR MORE 11/22/2014 37488-NFZFDMI NAIL, 6 OR MORE 02/13/2015 74436-NYJLNXE NAIL, 6 OR MORE 05/15/2015 41255-TRTHTFZ NAIL, 6 OR MORE 08/12/2015 49761-ZQFBKFI NAIL, 6 OR MORE 11/11/2015 29095-EMJQZTL NAIL, 6 OR MORE 02/19/2016 51824-RIITFHH NAIL, 6 OR MORE 05/21/2016 70755-WWEPFVP NAIL, 6 OR MORE 10/05/2016 97666-VGBGNCR NAIL, 6 OR MORE 01/11/2017 82962-FKNWZEF NAIL, 6 OR MORE 04/12/2017 22715-ZQNEGFE NAIL, 6 OR MORE 09/16/2017 91508-FNJXXKJ NAIL, 6 OR MORE 12/16/2017 98653-UILSFTU NAIL, 6 OR MORE 03/17/2018 51097-CMXWJEF NAIL, 6 OR MORE 07/14/2018 00650-FXLUWZU NAIL, 6 OR MORE 01/16/2019 13534-IGYPCYJ NAIL, 6 OR MORE 08/17/2019 41156-NUIDZMO NAIL, 6 OR MORE 11/20/2019 58455-KDTJFQY NAIL, 6 OR MORE 03/07/2020 56946-ZBJAPUV NAIL, 6 OR MORE 06/06/2020 19722-DMUCGME NAIL, 6 OR MORE 09/12/2020 49294-QERQSZK NAIL, 6 OR MORE 12/26/2020 90348-XWEGMSY NAIL, 6 OR MORE 04/07/2021 38216-TZYNJHT NAIL, 6 OR MORE 07/07/2021 38283-YBUOABJ NAIL, 6 OR MORE 10/13/2021 57030-TQNVABP NAIL, 6 OR MORE 01/12/2022 24601-IIMKTPD NAIL, 6 OR MORE 06/04/2022 49248-EABGJRA NAIL, 6 OR MORE 08/24/2022 56914-NKTXYZB NAIL, 6 OR MORE 11/19/2022 38481-ICJJVXI NAIL, 6 OR MORE 02/08/2023 59854-GTWPURY NAIL, 6 OR MORE 05/20/2023 39599-FOWOXNL NAIL, 6 OR MORE 09/16/2023 11441-NTUQZIU NAIL, 6 OR MORE 01/24/2024 16613-MIKFHAO NAIL, 6 OR MORE 05/01/2024 17548-ATBPUJR NAIL, 6 OR MORE 08/07/2024 61400-Otkjfkff Plate 01/24/2024 16890-Osouvwsy Plate 08/24/2022 98798-Jxmohnqz Plate 10/13/2021 12731-Lmwnotlx Plate 07/07/2021 64300-Kulbvlnq Plate 11/22/2014 54392-Obhqjuvx Plate 08/23/2014 17936-Dwuzlzxe Plate 06/20/2014 24874-Wsvzymjq Plate 03/14/2014 09933-Ulrbhznr Plate 12/07/2013 27583-Psnrwzwv Plate 09/20/2013 88665-Diolejxp Plate 06/21/2013 62879-Erryxfec Plate Each Additional 17820-Zctakrly Plate Each Additional 10/2021 94532, J0702- INJECT or DRAIN, JOINT/BUR SA 06/06/2020 15947-HXAX SKIN LESIONS, OVER 4 07/08/19 07054-CDUO SKIN LESIONS, OVER 4 04/07/19 33975-ODKU SKIN LESIONS, OVER 4 12/27/19 21 50375-LNCK SKIN LESIONS, OVER 4 10/14/19 22 23902-IWXR SKIN LESIONS, OVER 4 01/13/20 76258-HXFS SKIN LESIONS, OVER 4 08/25/19 23 78830-AJDA SKIN LESIONS, OVER 4 06/05/19 23 61101-QPTD SKIN LESIONS, OVER 4 09/16/19 24 76470-OHIO SKIN LESIONS, OVER 4 05/20/19 24 75017-UUKN SKIN LESIONS, OVER 4 02/09/20 23451-KNJN SKIN LESIONS, OVER 4 11/20/19 43958-GUYQ SKIN LESIONS, OVER 4 01/24/20 24 37717-XTEB SKIN LESIONS, OVER 4 05/02/19 98542-OSSO SKIN LESIONS, OVER 4 08/08/19 72825-ULML SKIN LESIONS, 2 TO 4 06/07/19 32653-ABSV SKIN LESIONS, 2 TO 4 07/15/20 21 41601-QKOM SKIN LESIONS, 2 TO 4 03/07/19 21 27915-LXIO SKIN LESIONS, 2 TO 4 11/20/19 20 60544-RVED SKIN LESIONS, 2 TO 4 08/17/19 20 39156-LRDC SKIN LESIONS, 2 TO 4 01/17/20 19 19573-KSPT SKIN LESIONS, 2 TO 4 07/15/19 19 30885-EQZT SKIN LESIONS, 2 TO 4 03/17/19 19 28680-IXOD SKIN LESIONS, 2 TO 4 12/17/19 18 10130-LKBQ SKIN LESIONS, 2 TO 4 09/17/19 18 38333-UXVR SKIN LESIONS, 2 TO 4 01/12/20 17 39679-MFOC SKIN LESIONS, 2 TO 4 04/12/19 18 64400-QADP SKIN LESIONS, 2 TO 4 06/22/19 14 55190-USSQ SKIN LESIONS, 2 TO 4 09/21/19 14 11883-ENME SKIN LESIONS, 2 TO 4 12/08/19 14 17590-OQBM SKIN LESIONS, 2 TO 4 03/23/19 14 34130-ADAF SKIN LESIONS, 2 TO 4 10/04/19 13 46698-TGCB SKIN LESIONS, 2 TO 4 07/12/19 13 45625-SBDH SKIN LESIONS, 2 TO 4 03/14/19 15 95966-YOEL SKIN LESIONS, 2 TO 4 06/21/19 15 02154-JNWJ SKIN LESION 05/21/2016 04700-HAOQ SKIN LESION 10/05/2016 Next Appt Details Provider Name:Matilda Gonzalez , 11/06/2024 01:30:00 PM, [address], [place], [address], Insurance Providers Payer Name Payer Address Payer Phone Subscriber Number Group Number Insured Name Patient Relationship to Insured Coverage Start Date Coverage End Date Medicare [employer] [address] [place] [address] [phone] [id number] Matty Mejia Self - patient is the insured Medical (General) History Medical History History ICD Code anxiety depression diabetic headaches/migraines high blood pressure psychiatric disorder reflux chicken pox Surgical History Surgery Date(Month/Year) Hospitalization History Reason Date(Month/Year) bad hip [facility] 10/31/2023 [facility]- pt cant remember overnight sleep study 12/2014
[2024-08-30 13:21] LABS: MANUAL DIFF FLAG NO
[2024-08-30 13:44] LABS: Hematocrit 48.1 % (42.0-52.0); Hemoglobin 16.4 g/dl (14.0-18.0); Mean Corpuscular HGB Conc 34.1 g/dl (31.0-36.0); Mean Corpuscular Hemoglobin 28.1 pg (27.0-33.0); Mean Corpuscular Volume 82.4 fL (80.0-98.0); NRBC Abs Auto 0.000 X10*3/uL (0.0-0.012); NRBC Pct Auto 0.0 /100WBC (0.0-0.2); Platelet Count 216 X10*3/uL (160-400); Red Blood Count 5.84 X10*6/uL (4.60-5.80); White Blood Count 7.6 X10*3/uL (4.8-10.8)
[2024-08-30 13:45] LABS: Hematocrit 47.4 % (42.0-52.0); Hemoglobin 16.4 g/dl (14.0-18.0); Imm Gran Abs Auto 0.04 X10*3/uL (0.00-0.03); Imm Gran Pct Auto 0.5 % (0.0-0.4); Lymphocytes Absolute Auto 2.3 X10*3/uL (1.2-4.9); Mean Corpuscular HGB Conc 34.6 g/dl (31.0-36.0); Mean Corpuscular Hemoglobin 28.5 pg (27.0-33.0); Mean Corpuscular Volume 82.3 fL (80.0-98.0); NRBC Abs Auto 0.000 X10*3/uL (0.0-0.012); NRBC Pct Auto 0.0 /100WBC (0.0-0.2); Platelet Count 219 X10*3/uL (160-400); Red Blood Count 5.76 X10*6/uL (4.60-5.80); White Blood Count 7.7 X10*3/uL (4.8-10.8)
[2024-08-30 13:55] LABS: Appearance Urine Clear; Glucose Urine UA >=1000 mg/dL (Negative); PH 6.0 (5.0-9.0); Specific Gravity - Urine 1.010 (1.005-1.025); UMIC TRIGGER UA YES
[2024-08-30 14:14] LABS: Anion Gap 12 (12-20); Blood Urea Nitrogen 19 mg/dL (9-16); Calcium 10.0 mg/dL (8.4-10.2); Carbon Dioxide 25 mmol/L (22-29); Chloride 107 mmol/L (96-108); Estimated Glomerular Filt Rate 35; Potassium 5.4 mmol/L (3.3-5.1); Sodium 139 mmol/L (135-145)
[2024-08-30 14:20] LABS: Parathyroid Hormone Intact 65.2 pg/mL (8.7-77.1)
== END 2024-08-30 12:44 | disposition home or self-care (01) ==
LOC: HO.CT 12:43
PROVIDERS: Absent Provider Internal Medicine Hypertension Specialist; PCP Internal Medicine; Visit Provider Internal Medicine Pulmonary Disease
DX: R91.8 Other nonspecific abnormal finding of lung field (principal); N18.30 Chronic kidney disease, stage 3 unspecified; Z79.899 Other long term (current) drug therapy
CPT/HCPCS: 36415; 71250; 80048; 81001; 83970; 85025; 85027

== ENCOUNTER → 2024-08-30 12:45 | Outpatient (BNV) | payer MEDICARE, MEDICAID, SELFPAY | PROVIDERS: Absent Provider Internal Medicine Hypertension Specialist; PCP Internal Medicine; Visit Provider Radiology Diagnostic Radiology | DX: R91.8 Other nonspecific abnormal finding of lung field (principal) | CPT/HCPCS: 71250 ==

== ENCOUNTER 2024-08-31 09:58 | Outpatient (AMB) | payer MEDICARE, MEDICAID, SELFPAY ==
--- NOTE | 2024-08-31 10:06 | HO.NEPHOV ---
Vital Signs 08/31/24 10:10 Height 5 ft 8 in Weight 215 lb 6 oz BMI 32.7 BP 110/82 Blood Pressure Location Lt brachial Position Sitting Pulse 97 Pulse Source Pulse Oximeter Pulse Oximetry (%) 97 Oxygen Delivery Method Room Air Intake Visit Reasons: August-Conf Resource Economist Required: No Accompanied by: Other Relationship Allergies No Known Allergies Allergy (Verified 08/31/24 10:10) Medication List - Last Reconciled 08/31/24 by Bruce Ye MD acetaminophen (Tylenol Extra Strength) 500 mg PO Q12H PRN albuterol sulfate 90 mcg/actuation 2 puffs inhalation Q6H PRN clozapine 200 mg PO BEDTIME docusate sodium 100 mg PO BID empagliflozin 25 mg PO DAILY [Extra depth orthopedic shoes (1 pair) with customized heat molded Multi- density Innersoles (3 pairs) As directed] fenofibrate 160 mg PO DAILY flash glucose scanning reader (FreeStyle Maria D 2 [place]) As directed flash glucose sensor (FreeStyle Maria D 2 Sensor kit) As directed fluticasone propionate 50 mcg/actuation (Flonase Allergy Relief) 1 spray intranasal BEDTIME 30 days haloperidol 5 mg PO BID hydroxyzine HCl 25 mg PO DAILY insulin degludec (Tresiba U-100 Insulin) 50 units subcut DAILY insulin lispro-aabc (Lyumjev KwikPen U-100 Insulin) 1 sliding scale dose subcut USEASDIRECTD lorazepam 1 mg PO DAILY PRN losartan (Cozaar) 25 mg PO DAILY omega-3 fatty acids 2,000 mg PO BID omeprazole 20 mg PO BID pen needle, diabetic (Comfort EZ Pen [place]) inject insulin twice daily rosuvastatin 5 mg PO DAILY semaglutide (Ozempic) 1 mg subcut TH@0900 umeclidinium-vilanterol 62.5-25 mcg/actuation (Anoro Ellipta) 1 ea PO DAILY HPI Comments Details: Matty is a middle-aged man with a history of schizoaffective disorder who was on lithium for many years. Soper was stopped 06/26/2022 He has a longstanding history of diabetes mellitus. History of chronic kidney disease. He was previously seen about a year ago and lost to follow-up. He has been referred again for management of CKD. Recent serum creatinine is 2.0 mg/dL with the EGFR of about 33 mL/minute. The blood pressure has been well controlled. He is currently on angiotensin receptor lesia along with Jardiance. He was on metformin which has been recently discontinued. He Smokes 2PPD 12/28/23 ;Overall doing OK ;Off Metformin now ;Currently on SGLT-2 inhibitors 05/01/24;c/o back pain - on and off; usually when sitting. No urinary symptoms. No GI sypmtoms Takes tylenol or Ibuprofen Still smokes 2 PPD 08/31/24 The patient is a 44-year-old male with CKD continues to have chronic low back pain REcently had mild hyperkalemia. The patient reports experiencing low back pain primarily when sitting, which has been persistent for a long duration, including since his last visit. The pain is described as stiffness that occurs after sitting for 15 to 30 minutes and improves after standing and moving around. He denies taking any pain medications regularly, although Tylenol is listed as an option. The patient's kidney function is stable, but recent blood work indicates hyperkalemia. He admits to consuming foods high in potassium, such as bananas, which may contribute to the elevated levels. He is advised to reduce intake of high-potassium foods. A lung nodule was previously identified on a CT scan, and follow-up imaging shows it remains unchanged in size. The patient is a smoker, consuming two packs per day, which is a significant risk factor for lung issues. [facility] Medical History (Updated 07/03/24 @ 14:58 by Rowena Cedeno MD) Acquired hammer toe deformity of lesser toe of both feet Pre-ulcerative calluses CKD (chronic kidney disease) stage 3, GFR 30-59 ml/min Tinea unguium Type 2 diabetes mellitus with diabetic polyneuropathy CKD (chronic kidney disease) stage 4, GFR 15-29 ml/min Type 2 diabetes mellitus with complication, with long-term current use of insulin Uncontrolled diabetes mellitus with hyperglycemia Hypercalcemia Noncompliance with medication regimen Rash and nonspecific skin eruption Tremor Vitamin D deficiency Mixed dyslipidemia Restrictive airway disease Type 2 diabetes mellitus with other diabetic kidney complication Solitary pulmonary nodule on lung CT Smoker unmotivated to quit Obesity (BMI 30-39.9) Schizoaffective disorder Essential hypertension Surgical History No pertinent past surgical history Family History Father Unknown family medical history Mother Unknown family medical history Brother No problems noted. Sister No problems noted. Social History Housing: Other Housing Other:: intermediate Alcohol intake: never Patient Tobacco Use Status: Current everyday Tobacco user Cigarette Packs Per Day: 2 e-Cigarette/Vaping Use: Never Used Substance Use Type: Marijuana Advance Directives Date on File: 12/06/23 service: No Current occupational status: disabled Cognitive needs: No Hearing needs: No Vision needs: Yes Physical Exam Vital Signs: Last Vital Signs Pulse 97 08/31/24 10:10 BP 110/82 08/31/24 10:10 Pulse Ox 97 08/31/24 10:10 Oxygen Delivery Method Room Air 08/31/24 10:10 BMI result Body Mass Index 32.7 Const General: comfortable; No acute distress Orientation/consciousness: patient oriented x3 Eyes General: appearance normal, both eyes and all related structures Visual Gross: normal visual gross by confrontation Neck Neck: Yes supple and Yes no JVD Resp Effort & Inspection: normal respiratory effort and respiratory effort not decreased Auscultation: rhonchi Cardio Palpation: no palpable S3 and no palpable S4 Heart sounds: no rubs GI Inspection: Yes normal to inspection Palpation (GI): Soft to palpation Percussion: Yes normal to percussion Auscultation: normal bowel sounds General: Yes no CVA tenderness Back/Spine/Pelvis Back: no CVA tenderness Skin General skin exam: no petechiae and no purpura Neuro General: patient oriented x3 and no focal motor deficits Extrem General: No clubbing and No edema Results Reviewed Nephrology Results: Hgb, (14.0-18.0) 16.4 g/dl 08/30/24 WBC, (4.8-10.8) 7.7 X10*3/uL 08/30/24 Plt Count, (160-400) 219 X10*3/uL 08/30/24 Sodium, (135-145) 139 mmol/L 08/30/24 Potassium, (3.3-5.1) 5.4 mmol/L H 08/30/24 Chloride, (96-108) 107 mmol/L 08/30/24 Carbon Dioxide, (22-29) 25 mmol/L 08/30/24 BUN, (9-16) 19 mg/dL H 08/30/24 Creatinine, (0.5-1.4) 2.04 mg/dL H 08/30/24 Calcium, (8.4-10.2) 10.0 mg/dL 08/30/24 PTH Intact, (8.7-77.1) 65.2 pg/mL 08/30/24 Urine Protein, (Neg-Trace) Negative mg/dL 08/30/24 Assessment & Plan Assessment & Plan (1) CKD (chronic kidney disease) stage 3, GFR 30-59 ml/min: Code(s): N18.30 - Chronic kidney disease, stage 3 unspecified Category: Medical Plan Matty has stage IIIB chronic kidney disease. CKD is most likely due to underlying diabetic kidney disease. He has been on lithium for a long time therefore lithium nephropathy can not be ruled out. At present he has no evidence of diabetes insipidus. He is no longer on lithium. Goal is to slow the portion of renal disease. Continue to maintain obtain blood pressure less than 130/80. Discussed importance of tight control blood sugar and A1c should be maintained less than 7%. Discussed importance of smoking cessation but he has no intention to quit. He will definitely benefit from weight loss. Encouraged to AVOID NSAIDS/Ibuprofen Given the degree of renal insufficiency I agree with avoiding metformin due to risk of lactic acidosis. Agree with SGLT-2 inhibitors for renal protection We will continue to screen for comorbid conditions including anemia and secondary hyperparathyroidism prior to his next visit. Discussed smoking cessation again Discussed low K diet Avoid Oranges/Bananas Orders: Orders Complete Blood Count no Diff 4 Months N18.30 - Chronic kidney disease, stage 3 unspecified Total Protein Urine Random Today N18.30 - Chronic kidney disease, stage 3 unspecified Creatinine Urine Today N18.30 - Chronic kidney disease, stage 3 unspecified Comprehensive Met. Panel Today N18.30 - Chronic kidney disease, stage 3 unspecified UA and rflx microscopic Today N18.30 - Chronic kidney disease, stage 3 unspecified Coding Level of Care Code Est Pt Level 4 (81031) Diagnoses CKD (chronic kidney disease) stage 3, GFR 30-59 ml/min N18.30
[2024-08-31 10:10] VITALS: BP 110/82; PULSE 97; O2SAT 97; BMI 32.7
--- OUTSIDE RECORDS SUMMARY | 2024-08-31 10:34 | XMS_ITS | Patient Health Record ---
Author Organization [facility] Address [address] [place] [address] Care Team Providers Care Lap Polisher Name Role Phone Pao ZHANG, Rowena Garrido Primary Care Provider Un available Black, Matilda Unavailable [phone] Allergies No Known Allergies Results Component Value [...] Orally Once a day Not-Taking Trulicity Active [place] 3 Active Anoro Ellipta 62.5-25 MCG/ACT 1 [...] morning meal Orally Once a day Active [place] Carbonate 600 MG as directed Ora lly [...] Problem Status W/U Status Risk Notes Problem Other hammer toe(s) (acquired), right foot (M20.41) Active confirmed Problem Acquired hammer toe of left foot (1832150270176167 ) Other hammer toe(s) (acquired), left foot (M20.42) Active confirmed Problem Localized, primary osteoarthritis of the ankle and/or foot (116661472) Primary osteoarthritis, right ankle and foot (M19.071) Active confirmed Problem Polyneuropathy due to diabetes mellitus type I (359217118) Type 1 diabetes mellitus with diabetic polyneuropathy (E10.42) Active confirmed Vital Signs Blood pressure diastolic 80 mm Hg 08/07/2024 Height 5ft8in in 08/07/2024 Blood pressure systolic 140 mm Hg 08/07/2024 Weight 220 lbs 08/07/2024 BMI 33.45 kg/m2 08/07/2024 Procedures Procedure Date Ordered Date Performed Result Body Sit e 94135-JXIAYSI NAIL, 6 OR MORE 09/16/2023 N/A 18677-VQDF SKIN LESIONS, OVER 4 09/16/2023 N/A 08733-YHHCBJT NAIL, 6 OR MORE 01/24/2024 N/A 49059-Ctqmhrpj Plate 01/24/2024 N/A 63031-GHLH SKIN LESIONS, OVER 4 01/24/2024 N/A 09516-DLDIFSV NAIL, 6 OR MORE 05/01/2024 N/A 77346-MDAE SKIN LESIONS, OVER 4 05/01/2024 N/A 34747-UWQLIHH NAIL, 6 OR MORE 08/07/2024 N/A 21780-NOSH SKIN LESIONS, OVER 4 08/07/2024 N/A Encounters Encounter Location Date Provider Diagnosis [place] [address] [address] 09/16/2023 Matilda Black Type 1 diabetes mellitus with diabetic polyneuropathy E10.42 and Tinea unguium B35.[address] [address] 01/24/2024 Matildafelecia Gonzalez Type 1 diabetes mellitus with diabetic polyneuropathy E10.42 ; Tinea unguium B35.1 and Ingrown nail L60.[address] [address] 05/01/2024 Matilda Black Type 1 diabetes mellitus with diabetic polyneuropathy E10.42 ; Other hammer toe(s) (acquired), right foot M20.41 ; Tinea unguium B35.1 and Other hammer toe(s) (acquired), left foot M20.[address] [address] 08/07/2024 Matilda Black Other hammer toe(s) (acquired), right foot M20.41 ; Metatarsalgia, left foot M77.42 ; Type 1 diabetes mellitus with diabetic polyneuropathy E10.42 ; Tinea unguium B35.1 ; Other hammer toe(s) (acquired), left foot M20.42 ; Pain in left foot M79.672 ; Pain in left ankle and joints of left foot M25.572 and Bursitis of intermetatarsal bursa of left foot M77.[address] [address] 09/16/2023 Matilda Gonzalez [address] [address] 10/21/2023 Matilda Gonzalez Assessments Encounter Date Diagnosis [...] Treatment Pending Test Test Name Order Date 90677-ZJLIKYI NAIL, 6 OR MORE 01/07/2012 25251-DIFQAFG NAIL, 6 OR MORE 04/11/2012 78217-SXFFEQK NAIL, 6 OR MORE 07/11/2012 06766-NKTFKJB NAIL, 6 OR MORE 10/03/2012 74841-DUOTOBV NAIL, 6 OR MORE 12/19/2012 72552-ZDUDIWR NAIL, 6 OR MORE 03/23/2013 33897-JGSVAWM NAIL, 6 OR MORE 06/21/2013 94200-JOFDNJG NAIL, 6 OR MORE 09/20/2013 75769-YBKLDLK NAIL, 6 OR MORE 12/07/2013 81357-NWGPERI NAIL, 6 OR MORE 03/14/2014 35971-EQSZYRJ NAIL, 6 OR MORE 06/20/2014 54963-MNCTZJB NAIL, 6 OR MORE 08/23/2014 47786-TPNOKUJ NAIL, 6 OR MORE 11/22/2014 55810-TLFYMKX NAIL, 6 OR MORE 02/13/2015 13664-JDXYWJN NAIL, 6 OR MORE 05/15/2015 69171-FGWBWJV NAIL, 6 OR MORE 08/12/2015 98209-UPTORMX NAIL, 6 OR MORE 11/11/2015 42025-QHMZDUI NAIL, 6 OR MORE 02/19/2016 62664-FSUDHDR NAIL, 6 OR MORE 05/21/2016 71186-HKPMEIA NAIL, 6 OR MORE 10/05/2016 26064-RHSGWAI NAIL, 6 OR MORE 01/11/2017 16318-TJNSLZM NAIL, 6 OR MORE 04/12/2017 76725-WIFRKRA NAIL, 6 OR MORE 09/16/2017 86952-UWJOVMR NAIL, 6 OR MORE 12/16/2017 10457-AAHLXUZ NAIL, 6 OR MORE 03/17/2018 19684-OPBBZNG NAIL, 6 OR MORE 07/14/2018 61284-ENWCAWA NAIL, 6 OR MORE 01/16/2019 39400-QFESQHO NAIL, 6 OR MORE 08/17/2019 61488-CDIKRUC NAIL, 6 OR MORE 11/20/2019 39410-KYOSSYP NAIL, 6 OR MORE 03/07/2020 02558-PXIAHSP NAIL, 6 OR MORE 06/06/2020 46768-WYVGMHB NAIL, 6 OR MORE 09/12/2020 63591-ONXSODE NAIL, 6 OR MORE 12/26/2020 75994-OFTXHYT NAIL, 6 OR MORE 04/07/2021 64500-QJEYILI NAIL, 6 OR MORE 07/07/2021 02708-CYGDPZU NAIL, 6 OR MORE 10/13/2021 47692-NWAFRHP NAIL, 6 OR MORE 01/12/2022 79063-UYNAWJZ NAIL, 6 OR MORE 06/04/2022 73928-RAIPZLP NAIL, 6 OR MORE 08/24/2022 23321-LMHFSSP NAIL, 6 OR MORE 11/19/2022 91402-CIMXEYH NAIL, 6 OR MORE 02/08/2023 76018-XWWWOCK NAIL, 6 OR MORE 05/20/2023 01893-VRDAAVF NAIL, 6 OR MORE 09/16/2023 93372-VNESJZI NAIL, 6 OR MORE 01/24/2024 97238-BYDETVO NAIL, 6 OR MORE 05/01/2024 34330-ZBIRWKY NAIL, 6 OR MORE 08/07/2024 40489-Zjwdtepy Plate 01/24/2024 77583-Eelfitvg Plate 08/24/2022 31708-Tpcrimqd Plate 10/13/2021 07160-Fdolxicb Plate 07/07/2021 19505-Dcqsqzdw Plate 11/22/2014 20788-Ufmkjsil Plate 08/23/2014 41371-Hzoerkhu Plate 06/20/2014 81587-Sowdvkrg Plate 03/14/2014 19743-Vcqbuoyg Plate 12/07/2013 33171-Ewolctzk Plate 09/20/2013 88811-Ekhyccot Plate 06/21/2013 53121-Xmjgdcpt Plate Each Additional 23642-Rehcmxdy Plate Each Additional 10/2021 97826, J0702- INJECT or DRAIN, JOINT/BUR SA 06/06/2020 99829-WCTY SKIN LESIONS, OVER 4 07/08/19 17245-DMKA SKIN LESIONS, OVER 4 04/07/19 31360-IDUZ SKIN LESIONS, OVER 4 12/27/19 21 00458-ZNSZ SKIN LESIONS, OVER 4 10/14/19 83679-RRYQ SKIN LESIONS, OVER 4 01/13/20 33014-KJVK SKIN LESIONS, OVER 4 08/25/19 23 94056-PJEO SKIN LESIONS, OVER 4 06/05/19 59260-NOGN SKIN LESIONS, OVER 4 09/16/19 24 56273-HGVU SKIN LESIONS, OVER 4 05/20/19 24 19863-RUXV SKIN LESIONS, OVER 4 02/09/20 84927-SPLE SKIN LESIONS, OVER 4 11/20/19 51309-NCXC SKIN LESIONS, OVER 4 01/24/20 59766-ABER SKIN LESIONS, OVER 4 05/02/19 06199-WFMQ SKIN LESIONS, OVER 4 08/08/19 36488-SREC SKIN LESIONS, 2 TO 4 06/07/19 74113-VXLZ SKIN LESIONS, 2 TO 4 09/13/19 62358-AREU SKIN LESIONS, 2 TO 4 01/07/20 21 53553-HBDM SKIN LESIONS, 2 TO 4 11/20/19 20 93951-ANLF SKIN LESIONS, 2 TO 4 08/17/19 20 22853-QHGO SKIN LESIONS, 2 TO 4 01/17/20 19 79545-TBXI SKIN LESIONS, 2 TO 4 07/15/19 19 56991-DTXU SKIN LESIONS, 2 TO 4 03/17/19 19 20044-NIUP SKIN LESIONS, 2 TO 4 12/17/19 18 53678-ZSRV SKIN LESIONS, 2 TO 4 09/17/19 18 58399-EIQV SKIN LESIONS, 2 TO 4 01/12/20 17 42825-YMSE SKIN LESIONS, 2 TO 4 04/12/19 18 19635-ZBWB SKIN LESIONS, 2 TO 4 06/22/19 14 24899-VIXR SKIN LESIONS, 2 TO 4 09/21/19 14 94835-SRAF SKIN LESIONS, 2 TO 4 12/08/19 14 21087-FTMU SKIN LESIONS, 2 TO 4 03/23/19 14 79802-XDGB SKIN LESIONS, 2 TO 4 10/04/19 13 27502-WJZP SKIN LESIONS, 2 TO 4 07/12/19 13 14663-FJHM SKIN LESIONS, 2 TO 4 03/14/19 15 33938-XXPN SKIN LESIONS, 2 TO 4 06/21/19 15 83069-UUWO SKIN LESION 05/21/2016 96872-POBD SKIN LESION 10/05/2016 Next Appt Details Provider Name:Matilda Gonzalez , 11/06/2024 01:30:00 PM, [address] [place], [address], Insurance Providers Payer Name Payer Address Payer Phone Subscriber Number Group Number Insured Name Patient Relationship to Insured Coverage Start Date Coverage End Date Medicare [facility] [employer] [address] [place] [address] [id number] Matty Mejia Self - patient is the insured Medical (General) History Medical History History ICD Code anxiety depression diabetic headaches/migraines high blood pressure psychiatric disorder reflux chicken pox Surgical History Surgery Date(Month/Year) Hospitalization History Reason Date(Month/Year) bad hip [facility] [place] 10/[place]/2023 [facility] [place]- pt cant remember overnight sleep study 12/2014
== END 2024-08-31 10:22 | disposition home or self-care (01) ==
LOC: HO.HKA 09:59
PROVIDERS: PCP Internal Medicine; Visit Provider Internal Medicine Hypertension Specialist
DX: N18.30 Chronic kidney disease, stage 3 unspecified (principal)
CPT/HCPCS: 99214

== ENCOUNTER → 2024-08-31 09:58 | Outpatient (BNVA) | payer MEDICARE, MEDICAID, SELFPAY | PROVIDERS: PCP Internal Medicine; Visit Provider Internal Medicine Hypertension Specialist | DX: E11.22 Type 2 diabetes mellitus with diabetic chronic kidney disease (principal); I12.9 Hypertensive chronic kidney disease with stage 1 through stage 4 chronic kidney disease, or unspecified chronic kidney disease; N18.32 Chronic kidney disease, stage 3b; Z79.4 Long term (current) use of insulin; Z79.899 Other long term (current) drug therapy | CPT/HCPCS: 99212 ==

== ENCOUNTER 2024-09-27 13:03 | Outpatient (REF) | payer MEDICARE, MEDICAID, SELFPAY ==
--- OUTSIDE RECORDS SUMMARY | 2024-09-27 13:38 | XMS_ITS | Patient Health Record ---
Author Organization [facility] Address [address] [facility] [place] [address] Care Team Providers Care Statistician Mathematical Name Role Phone Pao ZHANG, Rowena Garrido Primary Care Provider Un available Black, Matilda Unavailable [phone] Allergies No Known Allergies Results Component Value [...] Orally Once a day Not-Taking Trulicity Active [place] 3 Active Anoro Ellipta 62.5-25 MCG/ACT 1 [...] morning meal Orally Once a day Active [place] Carbonate 600 MG as directed Ora lly [...] Vaccine Route Administration Date Status Comme nts Influenza Unknown 11/23/2014 Administered Influenza Unknown 11/12/2016 Administered Influenza Unknown 11/08/2017 Administered Influenza Unknown 12/11/2021 Administered Influenza Unknown 05/20/2023 Refused Influenza Unknown 12/31/2023 Administered Pneumococcal Unknown 02/19/2016 Refused COVID-19 Pfizer BioNTech Vaccine Unknown 12/25/2020 Administered First Dose: 04/01/20 Second Dose: 04/22/2020 Social History Tobacco Use: Social History Observation [...] Problem Acquired hammer toe of right foot ([id number] ) Other hammer toe(s) (acquired), right foot (M20.41) Active confirmed Problem Acquired hammer toe of left foot (9246433714825930 ) Other hammer toe(s) (acquired), left foot (M20.42) Active confirmed Problem Localized, primary osteoarthritis of the ankle and/or foot (670135686) Primary osteoarthritis, right ankle and foot (M19.071) Active confirmed Problem Polyneuropathy due to diabetes mellitus type I (421878536) Type 1 diabetes mellitus with diabetic polyneuropathy (E10.42) Active confirmed Vital Signs Blood pressure diastolic 80 mm Hg 08/07/2024 Height 5ft8in in 08/07/2024 Blood pressure systolic 140 mm Hg 08/07/2024 Weight 220 lbs 08/07/2024 BMI 33.45 kg/m2 08/07/2024 Procedures Procedure Date Ordered Date Performed Result Body Sit e 30180-SBYUEDP NAIL, 6 OR MORE 01/24/2024 N/A 05783-Tjoicsbe Plate 01/24/2024 N/A 83839-IPRG SKIN LESIONS, OVER 4 01/24/2024 N/A 41631-HXIOXCZ NAIL, 6 OR MORE 05/01/2024 N/A 72983-BWMK SKIN LESIONS, OVER 4 05/01/2024 N/A 57521-TSTGKOK NAIL, 6 OR MORE 08/07/2024 N/A 80432-DUYC SKIN LESIONS, OVER 4 08/07/2024 N/A Encounters Encounter Location Date Provider Diagnosis [facility] [address] [place] [address] 01/24/2024 Matilda Black Type 1 diabetes mellitus with diabetic polyneuropathy E10.42 ; Tinea unguium B35.1 and Ingrown nail L60.[address] [address] 05/01/2024 Matilda Gonzalez Type 1 diabetes mellitus with diabetic polyneuropathy E10.42 ; Other hammer toe(s) (acquired), right foot M20.41 ; Tinea unguium B35.1 and Other hammer toe(s) (acquired), left foot M20.[address] [address] 08/07/2024 Matilda Gonzalez Other hammer toe(s) (acquired), right foot M20.41 ; Metatarsalgia, left foot M77.42 ; Type 1 diabetes mellitus with diabetic polyneuropathy E10.42 ; Tinea unguium B35.1 ; Other hammer toe(s) (acquired), left foot M20.42 ; Pain in left foot M79.672 ; Pain in left ankle and joints of left foot M25.572 and Bursitis of intermetatarsal bursa of left foot M77.[address] [address] 10/21/2023 Matilda Gonzalez Assessments Encounter Date Diagnosis [...] B35.1) 01/24/2024 Tinea unguium (ICD-10 - B35.1) 05/01/2024 Other [...] Treatment Pending Test Test Name Order Date 73961-STUGEHG NAIL, 6 OR MORE 01/07/2012 88384-IKRFJPF NAIL, 6 OR MORE 04/11/2012 93245-EOZRPXW NAIL, 6 OR MORE 07/11/2012 71418-QUZEHYF NAIL, 6 OR MORE 10/03/2012 45437-YRATLCF NAIL, 6 OR MORE 12/19/2012 80625-JYFWYOO NAIL, 6 OR MORE 03/23/2013 06107-TDWYIZR NAIL, 6 OR MORE 06/21/2013 42521-BJQTXLD NAIL, 6 OR MORE 09/20/2013 77759-GVRAOWK NAIL, 6 OR MORE 12/07/2013 75072-ZNXSXGL NAIL, 6 OR MORE 03/14/2014 90474-HIWUSAG NAIL, 6 OR MORE 06/20/2014 53828-DKNAYGA NAIL, 6 OR MORE 08/23/2014 36276-WKIBADC NAIL, 6 OR MORE 11/22/2014 92471-EQBXNUZ NAIL, 6 OR MORE 02/13/2015 76707-NTOSBYX NAIL, 6 OR MORE 05/15/2015 46508-BQJRVLE NAIL, 6 OR MORE 08/12/2015 28493-KJURFQA NAIL, 6 OR MORE 11/11/2015 54773-PEWHKOI NAIL, 6 OR MORE 02/19/2016 44950-KBKSNXS NAIL, 6 OR MORE 05/21/2016 33013-ITOTILZ NAIL, 6 OR MORE 10/05/2016 11070-SVFTMYW NAIL, 6 OR MORE 01/11/2017 74480-DXNERGV NAIL, 6 OR MORE 04/12/2017 36851-LTUWCWC NAIL, 6 OR MORE 09/16/2017 88229-PKHFNDT NAIL, 6 OR MORE 12/16/2017 42392-AYLEAFC NAIL, 6 OR MORE 03/17/2018 36506-XSBNUAN NAIL, 6 OR MORE 07/14/2018 10682-UYYHBKV NAIL, 6 OR MORE 01/16/2019 87478-ECLOFNW NAIL, 6 OR MORE 08/17/2019 48494-UAWIBOX NAIL, 6 OR MORE 11/20/2019 04238-GVADOSJ NAIL, 6 OR MORE 03/07/2020 66645-MRAFBGG NAIL, 6 OR MORE 06/06/2020 82774-IGPTUVT NAIL, 6 OR MORE 09/12/2020 10181-PMXBBPG NAIL, 6 OR MORE 12/26/2020 11813-PTBRXUI NAIL, 6 OR MORE 04/07/2021 15966-TFLBHHV NAIL, 6 OR MORE 07/07/2021 46992-WQKQTZU NAIL, 6 OR MORE 10/13/2021 33892-LYIAGBN NAIL, 6 OR MORE 01/12/2022 20590-YRJTVAZ NAIL, 6 OR MORE 06/04/2022 24530-BAVWDWH NAIL, 6 OR MORE 08/24/2022 91909-SNGUKDY NAIL, 6 OR MORE 11/19/2022 30550-ZBEKFTO NAIL, 6 OR MORE 02/08/2023 20480-TWLPWWV NAIL, 6 OR MORE 05/20/2023 82209-QQYIJPU NAIL, 6 OR MORE 09/16/2023 95923-XDYWPXV NAIL, 6 OR MORE 01/24/2024 30572-JLAUUBF NAIL, 6 OR MORE 05/01/2024 84963-PSXWMKH NAIL, 6 OR MORE 08/07/2024 69447-Vukhepvm Plate 01/24/2024 48270-Awnesjpg Plate 08/24/2022 86947-Dcgvebvy Plate 10/13/2021 64478-Mlmkahos Plate 07/07/2021 97928-Igwcwiiu Plate 11/22/2014 14968-Utcgohbc Plate 08/23/2014 83965-Zybcohbx Plate 06/20/2014 80269-Vhhvxjlt Plate 03/14/2014 59105-Ixsjxuly Plate 12/07/2013 21712-Wbiwdots Plate 09/20/2013 83233-Clhptove Plate 06/21/2013 70288-Nowiojms Plate Each Additional 00707-Weupgsmx Plate Each Additional 10/2021 31854, J0702- INJECT or DRAIN, JOINT/BUR SA 06/06/2020 42622-ZLBF SKIN LESIONS, OVER 4 07/08/19 93842-SNIA SKIN LESIONS, OVER 4 04/07/19 35601-CDGN SKIN LESIONS, OVER 4 12/27/19 13953-VNGM SKIN LESIONS, OVER 4 10/14/19 78381-CXZZ SKIN LESIONS, OVER 4 01/13/20 03838-GBFV SKIN LESIONS, OVER 4 08/25/19 23 96081-NZSU SKIN LESIONS, OVER 4 06/05/19 76421-YEOQ SKIN LESIONS, OVER 4 09/16/19 38267-DZVJ SKIN LESIONS, OVER 4 05/20/19 24 18298-LUKQ SKIN LESIONS, OVER 4 02/09/20 00692-YEEF SKIN LESIONS, OVER 4 11/20/19 23 68060-SQCX SKIN LESIONS, OVER 4 01/24/20 33616-XPDM SKIN LESIONS, OVER 4 05/02/19 06351-QHFA SKIN LESIONS, OVER 4 08/08/19 25 74503-LCQF SKIN LESIONS, 2 TO 4 06/07/19 48719-WWKT SKIN LESIONS, 2 TO 4 09/13/19 56641-RPZL SKIN LESIONS, 2 TO 4 03/07/19 06166-UQOX SKIN LESIONS, 2 TO 4 11/20/19 20 11311-SQTN SKIN LESIONS, 2 TO 4 08/17/19 20 69941-HIXZ SKIN LESIONS, 2 TO 4 01/17/20 91679-USHG SKIN LESIONS, 2 TO 4 07/15/19 51555-XBLL SKIN LESIONS, 2 TO 4 03/17/19 91683-JLDE SKIN LESIONS, 2 TO 4 12/17/19 18 04513-ZLKB SKIN LESIONS, 2 TO 4 09/17/19 18 52266-YZNZ SKIN LESIONS, 2 TO 4 01/12/20 88353-FWLJ SKIN LESIONS, 2 TO 4 04/12/19 18 87540-RUUC SKIN LESIONS, 2 TO 4 06/22/19 14 95818-IWLI SKIN LESIONS, 2 TO 4 09/21/19 14 03172-ITBI SKIN LESIONS, 2 TO 4 12/08/19 14 28268-PLGY SKIN LESIONS, 2 TO 4 03/23/19 14 46364-PKBL SKIN LESIONS, 2 TO 4 10/04/19 13 87800-SSTM SKIN LESIONS, 2 TO 4 07/12/19 13 91419-ZEGP SKIN LESIONS, 2 TO 4 03/14/19 15 49645-KIEG SKIN LESIONS, 2 TO 4 06/21/19 15 20249-HIWK SKIN LESION 05/21/2016 86941-SXRP SKIN LESION 10/05/2016 Next Appt Details Provider Name:Matilda Gonzalez , 11/06/2024 01:30:00 PM, [address] [place] [address], [phone], Insurance Providers Payer Name Payer Address Payer Phone Subscriber Number Group Number Insured Name Patient Relationship to Insured Coverage Start Date Coverage End Date Medicare National [employer] [address] [facility] [place] [address] [id number] Matty Mejia Self - patient is the insured Medical (General) History Medical History History ICD Code anxiety depression diabetic headaches/migraines high blood pressure psychiatric disorder reflux chicken pox Surgical History Surgery Date(Month/Year) Hospitalization History Reason Date(Month/Year) bad hip [facility] [place] 10/31/2023 [facility] [place]- pt cant remember overnight sleep study 12/2014
--- OUTSIDE RECORDS SUMMARY | 2024-09-27 13:38 | XMS_ITS | Clinical Summary ---
Author Organization [facility] Address [address] [facility] [address] [place] [id number] Phone Care Team Providers Care Band Top Maker Name Role Phone Rowena Cedeno MD Primary Care Provider Bruce Ye MD Unavailable + [phone] Raymundo Adams MD Unavailable + [phone] Ishmael Beckwith MD Unavailable [phone] Matilda Gonzalez DPM Unavailable Paxton Nance DDS Unavailable [phone] Efraín Lopez DPM Unavailable Rneee vailable Allergies No known active allergies Medications haloperidoL (HALDOL) 5 MG tablet Take 5 mg by mouth 2 (two) times a day. And as needed Active albuterol 90 mcg/actuation inhaler Inhale 2 puffs into the lungs every 6 (six) hours as needed for wheezing. Active umeclidinium-gregg anteroL (ANORO ELLIPTA) 62.5-25 mcg/actuation diskus inhaler Inhale 1 puff into the lungs every morning. Active LORazepam (ATIVAN) 1 MG tablet Take 1 mg by mouth 2 (two) times a day. Active cloZAPine (CLOZARIL) 200 MG tablet Take 200 mg by mouth every evening. Active docusate sodium (COLACE) 50 MG capsule Take 100 mg by mouth 2 (two) times a day. Active losartan (COZAAR) 25 MG tablet Take 25 mg by mouth daily. Active rosuvastatin (CRESTOR) 5 MG tablet Take 5 mg by mouth daily. Active fenofibrate (LOFIBRA) 160 MG tablet Take 160 mg by mouth daily. Active omega-3 fatty acids-fish oil 340-1,000 mg Cap Take 2 capsules by mouth 2 (two) times a day. Active fluticasone propionate (FLONASE) 50 mcg/actuation nasal spray 1 spray by Nasal route every evening. Active empagliflozin (JARDIANCE) 25 mg tablet Take 25 mg by mouth every morning. Active omeprazole (PRILOSEC) 20 mg TbEC Take 20 mg by mouth 2 (two) times a day. Active acetaminophen (TYLENOL) 500 MG tablet Take 500 mg by mouth every 6 (six) hours as needed for pain (specific location in comments). Active hydrOXYzine (ATARAX) 25 MG tablet Take 25 mg by mouth as needed for itching. Active TRUE COMFORT SAFETY PEN NEEDLE 32 gauge x 5/32 Ndle Inject 1 each under the skin 2 (two) times a day. 06/28/19 24 Active ferrous furamate 324 mg (106 mg elemental) Tab Take 324 mg by mouth daily. 05/08/19 24 Active ALCOHOL PREP PADS PadM Apply 1 each topically. 06/29/19 24 Active insulin degludec U-100 (TRESIBA) injection penIndications:T ype 2 diabetes mellitus with stage 4 chronic kidney disease, with long-term current use of insulin,Type 2 diabetes mellitus with hyperglycemia, with long-term current use of insulin Inject 45 Units under the skin nightly at bedtime. 45 mL 1 06/15/19 25 Active semaglutide (OZEMPIC) 1 mg/dose (4 mg/3 mL) subcutaneous injection penIndications:T ype 2 diabetes mellitus with stage 4 chronic kidney disease, with long-term current use of insulin,Type 2 diabetes mellitus with hyperglycemia, with long-term current use of insulin INJECT 1mg UNDER THE SKIN EVERY 7 DAYS 3 mL 09/22/19 25 Active insulin lispro (HUMALOG KWIKPEN INSULIN) 100 unit/mL injection penIndications:T ype 2 diabetes mellitus with stage 4 chronic kidney disease, with long-term current use of insulin,Type 2 diabetes mellitus with hyperglycemia, with long-term current use of insulin INJECT ONCE DAILY WITH BREAKFAST BEFORE eating VIA sliding scale 70-100 2u; 101-150 4u; 151-200 6u; 201-250 8u; 251-300 10u; 301-350 12u; 351-400; 14u; >400 16u 15 mL 09/22/19 25 Active HUMALOG KWIKPEN INSULIN 100 unit/mL Earnesto ns:Type 2 diabetes mellitus with stage 4 chronic kidney disease, with long-term current use of insulin,Type 2 diabetes mellitus with hyperglycemia, with long-term current use of insulin Please use once a day with breakfast based on the correction scale below. Must administer before eating. 70-100 =2 unit 101-150 =4 units 151-200 = 6 units 201-250 =8 units 251-300 =10 units 301-350 =12 units 351-400 =14 units greater than 400 =16 units 15 mL 1 06/15/19 25 025 Discontinued semaglutide (OZEMPIC) 1 mg/dose (4 mg/3 mL) subcutaneous injection penIndications:T ype 2 diabetes mellitus with stage 4 chronic kidney disease, with long-term current use of insulin,Type 2 diabetes mellitus with hyperglycemia, with long-term current use of insulin Inject 1 mg under the skin every 7 days. 9 mL 06/15/19 25 025 Discontinued Active Problems Problem Noted Date Diagnosed Date Type 2 diabetes mellitus wit h stage 4 chronic kidney disease, with long-term current use of insulin 05/03/2023 Assessment & Plan (06/14/2024 12:36 PM EDT): Improved control the hemoglobin A1c dropped to 7.7% but he still having postprandial hyperglycemia after breakfast because he has 3 cups of cool feet with 6 spoons of sugar in each. So I told him to decrease the amount of sugar or decrease the coffee to 1 cup a day. I told him if he does not have any improvement by next time I will have no choice but to increase to Humalog for breakfast. I am not making any changes because he is going to work on his diet. The only problem is really for the most part is still postprandial glucose after breakfast. He states that he has so much coffee with sugar because he does not want his glucose to go low but he has a normal fasting glucose of 100 in the morning so his glucose are not low and furthermore he does not feel sick. So it does not really make sense what he is doing. Also he needs to repeat the lab work fasting because he did not do it fasting he states he is going to do it tomorrow. He should return for follow-up in 3 months. Assessment & Plan (03/02/2024 12:34 PM EST): Uncontrolled. Hemoglobin A1c 8.6% he is having postprandial hyperglycemia after breakfast. He states he does not eat the rest of the day not even snacks. So the Ozempic is working to suppress his appetite. But he also has vomited after eating breakfast. The reason why the glucose is high after breakfast is because he has 2 cups of coffee with 6 tablespoons of sugar in each cup. Otherwise he has a turkey sandwich which is fine. So he needs to limit the sugar intake. I suggested to decrease it by 1 tablespoon/week so that he can get used to not having such as 3 coffee. In his case he may actually benefit from sweetener instead of regular sugar. Although I do not really recommend sweeteners either especially Splenda because it can change microbiome and promote diabetes and obesity. So since I cannot increase the Ozempic I am going to prescribe prandial insulin such as Humalog or NovoLog based on a correction scale. He should use this for breakfast only. He should continue using Ozempic and Tresiba. The Humalog and NovoLog has to be done before breakfast not after breakfast is fine for the Tresiba to be administer after breakfast it really does not matter. But the prandial insulin must be administered before eating based on his glucose before eating. 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 He tends to develop hypoglycemia so I am decreasing the Tresiba to 45 units. He also tends to have postprandial hyperglycemia. So he is going to need GLP-1 agonist. Off of Trulicity he was having postprandial hyperglycemia. He was unable to get this medication so I am switching him to Ozempic 1 mg. Since I am adding Ozempic I am decreasing the Tresiba from 55 to 45 units in order to prevent him from developing fasting hypoglycemia. He should return for follow-up in 3 months. Assessment & Plan (06/23/2023 12:30 PM EDT): Uncontrolled. He has frequent hypoglycemia. He does have CKD stage IV and possibly retains insulin. I am decreasing the Tresiba to 70 units and he should continue Trulicity 3.0 mg. He still has postprandial hyperglycemia despite this. But maybe he is over eating to correct for the low glucose levels. 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 The patient has current severe hypoglycemia. There is significant concern hypoglycemic seizures which can be potentially fatal. I reemphasized to the patient that the use of insulin is high risk therapy that requires intensive monitoring for toxic effects (hypoglycemia, metabolic decompensation) due to the narrow therapeutic index of the medication and other factors (such as age, acute renal insufficiency, variable appetite and use of steroids) therefore close monitoring of blood sugar with regular review is paramount in the safe use of this medication. So at this point I will give him a follow-up appointment in 6 weeks time because of the frequent hypoglycemia. Assessment & Plan (05/03/2023 3:47 PM EST): Uncontrolled. He is already using Lantus 60 units and anything above this he will need to do multiple injections because Lantus above 60 units that is not very well absorbed. We could consider other types of insulin such as Tresiba or Toujeo. He is also on Trulicity 1.5 mg we could consider increasing this to 3 mg but the problem is that this medication is not available and even if we increase it he would not be able to get it. He does not want to use prandial insulin with meals even despite the fact that I told him that he has CKD stage IV and if he does not get his diabetes improved he may end up on dialysis. So right now the only choice I have is to try to switch him from Trulicity to Mounjaro. However this medication is also not readily available. So I think the best option right now is to switch Lantus to Tresiba which has an action time of 42 hours it is more potent and we can increase the insulin dose to try to drop his glucose levels because most of the glucose are above 250 mg/dL. So we will start with changing the basal insulin and as it improves we can try switching the GLP agonist prefer the use of Mounjaro which has GIP as well and has better glycemic control. However the problem with doing this is that if we switch from Trulicity to Mounjaro we have to decrease the dose and his diabetes glycemic control will worsen. So for now I will increase the Trulicity from 1.5 to 3.0 mg weekly in hopes that he is able to obtain it. This in addition to switching the Lantus to Tresiba should improve glycemic control. Type 2 diabetes mellitus with hyperglycemia 06/2023 Encounters Date Type Department Care Team Description 09/20/2024 Refill [facility] [address] [place] [address] Efraín Bhatia DO Medication Refill from Last 3 Months Family History Medical History Relation Comments Diabetes mellitus Father Diabetes mellitus Paternal Grandfather Diabetes mellitus Paternal Grandmother Diabetes mellitus Paternal Great-Grandmother Diabetes mellitus Sister Relation Status Comments Father Alive Mother Paternal Grandfather Paternal Grandmother Paternal Great-Grandmother Sister Alive Social History Tobacco Use Types Packs/Day Years Used Date Smoking Tobacco: Every Day Cigarettes 2 37.5 Started: 03/31/1987 Smokeless Tobacco: Never Tobacco Cessation:Ready to Q uit: Not Asked; Counseling Given: Not Answered Alcohol Use Standard Drinks/Week Comments Not Currently 0 (1 standard drink = 0.6 oz pure alcohol) 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 Not on jyoti e 02/25/2023 Are you concerned about learning? Not on file 02/25/2023 No 02/25/2023 No 02/25/2023 Digital Access Answer Date Recorded No 02/25/2023 No 02/25/2023 Reliable internet access at home? Not on file 02/25/2023 Device with a working camera? Not on file Sex and Gender Information Value Date Recorded Sex Assigned at Not on file Legal Sex Male 12:00 PM EST Gender Identity Not on file Sexual Orientation Not on file Last Filed Vital Signs Vital Sign Reading Time Taken Comments Blood Pressure 108/70 06/14/2024 12:02 PM EDT Pulse 97 06/14/2024 12:02 PM EDT Temperature - - Respiratory Rate - - Oxygen Saturation 97% 06/14/2024 12:02 PM EDT Inhaled Oxygen Concentration - - Weight 99.3 kg (219 lb) 06/14/2024 12:02 PM EDT Height 172.7 cm (5' 8 ) 06/14/2024 12:02 PM EDT Body Mass Index 33.3 06/14/2024 12:02 PM EDT Plan of Treatment Upcoming Encounters Date Type Department Care Team ([facility] st Contact Info) Description 10/03/2024 12:10 PM EDT Office Visit [facility] [address] [place] [id number] Efraín Bhatia DO [address] [place] [id number] Health Maintenance Due Date Last Done Comments ABSOLUTE NEUTROPHIL COUNT (ANC) 1979 Adult Td,Tdap Booster 1979 DEPRESSION SCREENING 1991 HEPATITIS C SCREENING 1997 HIV ONE-TIME SCREENING (18-65 YEARS) 1997 PNEUMOCOCCAL VACCINES (0-49 years) (1 of 2 - PCV) 1998 DIABETIC EYE EXAM 04/05/2023 COVID-19 VACCINE ( - 2023-25 season) 2023 COLOGUARD 02/16/2024 COLONOSCOPY 02/16/2024 COLORECTAL CANCER SCREENING 02/16/2024 FIT TEST 02/16/2024 FOBT 02/16/2024 SIGMOIDOSCOPY 02/16/2024 VIRTUAL COLONOSCOPY 02/16/2024 BLOOD PRESSURE 12/14/2024 06/14/2024 HEMOGLOBIN A1C 12/15/2024 06/15/2024, 04/0 09/2024, 03/02/2024, Additional history exists SMOKING Hx and SMOKELESS TOBACCO SCREENING 06/14/2025 06/14/2024 CREATININE LEVEL 06/15/2025 06/15/2024 POTASSIUM LEVEL 06/15/2025 06/15/2024 HEPATITIS A VACCINES Aged Out No long er eligible based on patient's age to complete this topic HIB VACCINES Aged Out No longer eligi ble based on patient's age to complete this topic MENINGOCOCCAL VACCINES (ACWY) Aged Out No longer eligible based on patient's age to complete this topic MENINGOCOCCAL VACCINES (B) Aged Out N o longer eligible based on patient's age to complete this topic Medical Devices Not on file Procedures Procedure Name Priority Date/Time Associated Diagnosis Comments HEMOGLOBIN A1C Routine 06/15/2024 8:46 AM EDT Type 2 diabetes mellitus with stage 4 chronic kidney disease, with long-term current use of insulin RENAL PANEL Routine 06/15/2024 8:46 AM EDT Type 2 diabetes mellitus with stage 4 chronic kidney disease, with long-term current use of insulin from Last 3 Months or Most Recently Relevant to Health Maintenance Results * (ABNORMAL) Renal panel (06/15/2024 8:46 AM EDT) SODIUM 134 133 - 146 mmol/L [facility] POTASSIUM 4.9 3.3 - 5.1 mmol/L [facility] Comment:Specimen slightly he molyzed, result may be falsely elevated. CHLORIDE 102 96 - 108 mmol/L [facility] CO2 22 21 - 35 mmol/L [facility] GLUCOSE 188(H) 70 - 99 mg/dL [facility] BUN 36(H) 6 - 19 mg/dL [facility] CREATININE 2.10(H) 0.5 - 1.5 mg/dL [facility] CALCIUM 9.9 8.4 - 10.3 mg/dL [facility] PHOSPHORUS 3.7 2.7 - 4.5 mg/dL [facility] ALBUMIN 4.0 3.9 - 4.8 g/dL [facility] EGFR 39(L) >59 mL/min/1.7 3m2 [facility] Comment:Estimated glomerular filtration rate calculated using the CKD-EPI refit equation. ANION GAP 15 10 - 20 mmol/L [facility] Blood 06/15/2024 8:46 AM EDT 06/15/2024 8:48 AM EDT us Efraín Bhatia DO LAB BLOOD ORDERABLES Final Resul t [facility] [address] [place] [address] * (ABNORMAL) Hemoglobin A1c (06/15/2024 8:46 AM EDT) HEMOGLOBIN A1C 7.9(H) 4.3 - 5.8 % [facility] Blood 06/15/2024 8:46 AM EDT 06/15/2024 8:48 AM EDT us Efraín Larao DO LAB BLOOD ORDERABLES Final Resul t [facility] [address] [place] [address] from Last 3 Months or Most Recently Relevant to Health Maintenance Insurance [facility] PART [facility] & B [place] PART A & B [facility] MEDIC[facility] PART A & B [facility] PART A & B [facility] MEDIC[facility] PART A & B [facility] MEDIC[facility] PART A & B Care Teams Band Top Maker Relationship Specialty Start Date End Date Rowena Cedeno MD [address] [place] [address] PCP - General Internal Medicine 02/24/23 Bruce Ye MD [address] [place] [phone] Nephrology 04/05/23 Raymundo Adams MD [address] [place] [address] [place] [id number] Family Medicine 04/05/23 Ishmael Beckwith MD [address] [place] [address] [email or web address] [email or web address] 04/05/23 Matilda Gonzalez DPM [address] [place] [phone] Podiatry 04/05/23 Paxton Nance DDS [address] [place] [id number] 04/05/23 Efraín Lopez DPM Podiatry 04/05/23 Additional Source Comments The information contained in this document represents components of the legal health record. It is not the complete legal health record.[facility]
[2024-09-27 16:04] LABS: MANUAL DIFF FLAG NO
[2024-09-27 16:10] LABS: Hematocrit 41.8 % (42.0-52.0); Hemoglobin 15.0 g/dl (14.0-18.0); Imm Gran Abs Auto 0.03 X10*3/uL (0.00-0.03); Imm Gran Pct Auto 0.4 % (0.0-0.4); Lymphocytes Absolute Auto 2.4 X10*3/uL (1.2-4.9); Mean Corpuscular HGB Conc 35.9 g/dl (31.0-36.0); Mean Corpuscular Hemoglobin 28.6 pg (27.0-33.0); Mean Corpuscular Volume 79.6 fL (80.0-98.0); NRBC Abs Auto 0.000 X10*3/uL (0.0-0.012); NRBC Pct Auto 0.0 /100WBC (0.0-0.2); Platelet Count 191 X10*3/uL (160-400); Red Blood Count 5.25 X10*6/uL (4.60-5.80); White Blood Count 7.7 X10*3/uL (4.8-10.8)
== END 2024-09-27 13:04 | disposition home or self-care (01) ==
LOC: HO.HMGCLR 13:03
PROVIDERS: PCP Internal Medicine
DX: Z79.899 Other long term (current) drug therapy (principal)
CPT/HCPCS: 36415; 85025

== ENCOUNTER 2024-10-05 14:23 | Outpatient (AMB) | payer MEDICARE, MEDICAID, SELFPAY ==
[2024-10-05 14:36] VITALS: BP 124/82; PULSE 101; RESP 16; TEMP 36.7; O2SAT 98; BMI 32.7
--- NOTE | 2024-10-05 14:36 | A.OFFPC_ITS ---
Vital Signs 10/05/24 14:36 Height 5 ft 8 in Weight 215 lb BMI 32.7 BP 124/82 Blood Pressure Location Lt brachial Position Sitting Respiration 16 Pulse 101 H Pulse Source Pulse Oximeter Temp 98.1 F Temp Source Oral Pulse Oximetry (%) 98 Oxygen Delivery Method Room Air Intake Visit Reasons: PE Intake Note: Pt is here today for his PE Allergies No Known Allergies Allergy (Verified 10/05/24 15:25) Medication List - Last Reconciled 10/05/24 by Rowena Cedeno MD acetaminophen (Tylenol Extra Strength) 500 mg PO Q12H PRN albuterol sulfate 90 mcg/actuation 2 puffs inhalation Q6H PRN clozapine 200 mg PO BEDTIME empagliflozin 25 mg PO DAILY [Extra depth orthopedic shoes (1 pair) with customized heat molded Multi- density Innersoles (3 pairs) As directed] fenofibrate 160 mg PO DAILY flash glucose scanning reader (Sliced ApplesStyle Maria D 2 [place]) As directed flash glucose sensor (FreeStyle Maria D 2 Sensor kit) As directed fluticasone propionate 50 mcg/actuation (Flonase Allergy Relief) 1 spray intranasal BEDTIME 30 days haloperidol 5 mg PO BID hydroxyzine HCl 25 mg PO DAILY insulin degludec (Tresiba U-100 Insulin) 40 units subcut DAILY insulin lispro-aabc (Lyumjev KwikPen U-100 Insulin) 1 sliding scale dose subcut USEASDIRECTD lorazepam 1 mg PO DAILY PRN omega-3 fatty acids 2,000 mg PO BID omeprazole 20 mg PO BID pen needle, diabetic (Comfort EZ Pen [place]) inject insulin twice daily rosuvastatin 5 mg PO DAILY semaglutide (Ozempic) 1 mg subcut TH@0900 sennosides-docusate sodium 8.6-50 mg (Senna-S) 1 tab-cap PO BEDTIME umeclidinium-vilanterol 62.5-25 mcg/actuation (Anoro Ellipta) 1 ea PO DAILY Tobacco use date assessed: 10/05/24 Dental Screening Dental Screen Date: 10/05/24 Did you have a dental visit in the last 12 months?: Yes Did you have a dental problem in the last 6 months where you did not have access to dental care?: Yes Was dental information given to patient?: Patient has dentist HPI PE HPI Details - The patient is a 44-year-old male pres enting with diabetes mellitus and hypertension, here today for his physical exam.. - Diabetes mellitus: The patient's blood sugar level has decreased to 7.6, which is an improvement from previous levels. - The patient is currently on Tresiba, O zempic, and Jardiance for diabetes management. He states that Ozempic reduces his appetite, leading to less food intake and a reduction in junk food consumption. [place] [facility] [place] - Constipation: The patient reports diff iculty with bowel movements and occasional rectal bleeding, which he attributes to constipation. - The patient has been using Colace for relief but reports limited effectiveness. - Cataracts: The patient has been diagno sed with early-stage cataracts, noted d uring an eye examination in July. - Knee pain: The patient reports persist ent knee pain [facility] Medical History (Updated 10/05/24 @ 17:20 by Rowena Cedeno MD) Acquired hammer toe deformity of lesser toe of both feet Pre-ulcerative calluses CKD (chronic kidney disease) stage 3, GFR 30-59 ml/min Tinea unguium Type 2 diabetes mellitus with diabetic polyneuropathy CKD (chronic kidney disease) stage 4, GFR 15-29 ml/min Type 2 diabetes mellitus with complication, with long-term current use of insulin Uncontrolled diabetes mellitus with hyperglycemia Hypercalcemia Noncompliance with medication regimen Rash and nonspecific skin eruption Tremor Vitamin D deficiency Mixed dyslipidemia Restrictive airway disease Type 2 diabetes mellitus with other diabetic kidney complication Solitary pulmonary nodule on lung CT Smoker unmotivated to quit Obesity (BMI 30-39.9) Schizoaffective disorder Essential hypertension Surgical History No pertinent past surgical history Family History Father Unknown family medical history Mother Unknown family medical history Brother No problems noted. Sister No problems noted. Social History Housing: Other Housing Other:: [facility] Alcohol intake: never Patient Tobacco Use Status: Current everyday Tobacco user Cigarette Packs Per Day: 2 e-Cigarette/Vaping Use: Never Used Substance Use Type: Marijuana Advance Directives Date on File: 12/06/23 service: No Current occupational status: disabled Cognitive needs: No Hearing needs: No Vision needs: Yes Questionnaire Thrive Questionnaire Date Thrive assessed: 06/29/24 I am a: Patient What is your living situation today?: I have a steady place to live Within the past 12 months, did the food you bought not last and you didn't have the money to get more?: Never true Within the past 12 months, did you worry whether your food would run out before you got money to buy more?: Never true Do you have trouble paying for medicines?: No Do you have trouble getting transportation to medical appointments?: No Do you have trouble paying your heating and electricity bill?: No Do you have trouble taking care of your child, family member or friend?: No Do you have trouble with day-to-day activities such as bathing, preparing meals, shopping, managing finances, etc.?: No Are you currently unemployed and looking for a job?: No Are you interested in more education?: No Please select the resources that you would like help with: None Currently or been in a relationship where the following occur: I choose not to answer THRIVE Score: 0 WILBERTO-7 AMB Questionnaire WILBERTO-7 Date WILBERTO - 7 assessed: 06/29/24 Source: Developed by Drs. Mauro Lunsford, Kimmie Rizvi, Remy Mora and colleagues, with an educational dale from [employer]. Review of Systems Const Denies fatigue, Denies fever(s), Denies lethargy and Denies malaise Eyes Denies blurry vision ENT Reports no additional complaints Card Denies chest pain and Denies dyspnea Resp Denies cough, Denies hemoptysis, Denies dyspnea and Denies wheezing GI Denies abdominal pain and Denies heartburn Reports urinary frequency Musc Denies myalgias, Denies arthralgias and Denies joint swelling Skin/Breast Denies rash Neuro Denies Sensory deficit (Neuro) Psych Reports as per HPI Endo Denies fatigue and Denies heat intolerance Jimmy/Lymph Denies easy bruising Aller/Immun Denies seasonal rhinorrhea and Denies wheezing Physical exam (Primary Care) Vital Signs: Last Vital Signs Temp 98.1 F 10/05/24 14:36 Pulse 101 H 10/05/24 14:36 Resp 16 10/05/24 14:36 BP 124/82 10/05/24 14:36 Pulse Ox 98 10/05/24 14:36 Oxygen Delivery Method Room Air 10/05/24 14:36 BMI result Body Mass Index 32.7 Tobacco/Smoking Status: Tobacco use Status Tobacco use date assessed 10/05/24 10/05/24 14:37 Patient Tobacco Use Status Current everyday Tobacco 10/05/24 14:37 e-Cigarette/Vaping Use Never Used 10/05/24 14:37 Thrive Assessment: Date of Thrive Assessment Date Thrive assessed 06/29/24 10/05/24 14:37 Currently or been in a relationship where the following occur: I choose not to answer Const Other: Obese, Alert oriented x3, accompanied by caregiver, ambulatory normal gait Orientation/consciousness: patient oriented x3 HENMT Head: Yes normocephalic Ears: external ears normal, TM's normal bilaterally and EAC's normal Face and sinus: Yes face symmetric Mouth: Normal oral and palatal mucosa present, oropharynx normal and moist mucous membranes Eyes General: appearance normal, both eyes and all related structures Neck Neck: Yes normal visual inspection, Yes full ROM and Yes no lymphadenopathy Resp Auscultation: clear to auscultation bilaterally Cardio Other: S1-S2 present regular rate and rhythm GI Other: Obese, normal bowel sounds, soft, nontender with no mass palpated General: Yes no CVA tenderness Back/Spine/Pelvis Back: no CVA tenderness Skin General skin exam: no rashes or lesions noted and dry skin Neuro General: patient oriented x3, gait normal, moves all extremities, Normal light touch and pain sensation and no focal motor deficits Cranial nerves: Yes CN's II-XII intact bilaterally Sensory Exam: No Sensory deficit (Neuro) Extrem Other: Discolored, thickened toenails in both feet, preulcerative callus noted on both feet, decreased sensation by monofilament testing in both feet Psych Appearance: grossly normal Mental Status: mental status grossly normal Speech and movement: Normal speech and movement present Affect: normal affect Results Reviewed Results Reviewed: Name: Matty Mcgee Age/Sex: 44/M : 1980 Unit#: [id number] Attend Dr: Beverly Baez APRN Re09/27/24 Status: DEP REF Location: [facility] Disch: SPEC : [id number] KESHAWN: 09/27/24 STATUS: COMP REQ : [id number] RECD: 09/27/24-[address] [facility] [address]: Beverly Baez MARRIAGE AND FAMILY COUNSELOR COMP: 09/27/24-1322 ENTERED: 09/27/[address]: Rowena Cedeno MD ORDERED: CBC Auto Diff Test Result Flag Reference WBC 7.7 4.8-10.8 X10*3/uL RBC 5.25 4.60-5.80 X10*6/uL HGB 15.0 14.0-18.0 g/dl HCT 41.8 L 42.0-52.0 % MCV 79.6 L 80.0-98.0 fL MCH 28.6 27.0-33.0 pg MCHC 35.9 31.0-36.0 g/dl RDW 14.6 11.0-16.0 % PLT 191 160-400 X10*3/uL MPV 10.2 9.4-12.4 fL Neut Pct Auto 62.9 45-73 % ImGran Pct Auto 0.4 0.0-0.4 % Lymp Pct Auto 30.6 20-40 % Appling Pct Auto 6.0 2-11 % Eos Pct Auto 0.0 0-4 % Baso Pct Auto 0.1 0-2 % NRBC Pct Auto 0.0 0.0-0.2 /100WBC ANC Neut Abs # 4.9 2.0-8.3 x10*3/uL ImGran Abs Auto 0.03 0.00-0.03 X10*3/uL Lymph Abs Auto 2.4 1.2-4.9 X10*3/uL [place] Abs Auto 0.5 0.1-1.2 X10*3/uL Eos Abs Auto 0.0 0.0-0.4 X10*3/uL Baso Abs Auto 0.0 0.0-0.2 X10*3/uL NRBC Abs Auto 0.000 0.0-0.012 X10*3/uL Name: Matty Mcgee Age/Sex: 44/M : 1980 Unit#: [id number] Attend Dr: Benny Hartmann MD Re08/30/24 Status: DEP REF Location: [facility] Disch: SPEC : [id number] KESHAWN: 08/30/24 STATUS: COMP REQ : [id number] RECD: 08/30/[address]: Bruce Ye MD COMP: 08/30/24 ENTERED: 08/30/24-[address] [facility] [address]: Rowena Cedeno MD, Andrey MD ORDERED: BMP Test Result Flag Reference Sodium 139 135-145 mmol/L Potassium 5.4 H 3.3-5.1 mmol/L CL 107 96-108 mmol/L CO2 25 22-29 mmol/L Gap 12 12-20 BUN 19 H 9-16 mg/dL Creat 2.04 H 0.5-1.4 mg/dL eGFR 35 Chronic Kidney Disease: Estimated GFR < 60 mL/min/1.73m2 Severe Kidney Disease: Estimated GFR < 15 mL/min/1.73m2 Glucose, Random 167 H 60-115 mg/dL CA 10.0 8.4-10.2 mg/dL Coding Level of Care Code Est Pt Prev Care 40-64y(79571) Diagnoses Mixed dyslipidemia E78.2 Schizoaffective disorder F25.9 Essential hypertension I10 Type 2 diabetes mellitus with other diabetic kidney complication E11.29 Type 2 diabetes mellitus with complication, with long-term current use of insulin E11.8; Z79.4 Type 2 diabetes mellitus with diabetic polyneuropathy E11.42 CKD (chronic kidney disease) stage 4, GFR 15-29 ml/min N18.4 Emphysema of lung J43.9 Annual visit for general adult medical examination with abnormal findings Z00.01 Assessment & Plan Assessment & Plan (1) Mixed dyslipidemia: Code(s): E78.2 - Mixed hyperlipidemia Category: Medical (2) Schizoaffective disorder: Code(s): F25.9 - Schizoaffective disorder, unspecified Category: Medical (3) Essential hypertension: Code(s): I10 - Essential (primary) hypertension Category: Medical (4) Type 2 diabetes mellitus with other diabetic kidney complication: Comment: Followed by Dr. Bhatia, with latest hemoglobin A1c at 7.8% on 10/04/2024, with fo llow-up appointment scheduled in 3 months Code(s): E11.29 - Type 2 diabetes mellitus with other diabetic kidney complication Category: Medical (5) Type 2 diabetes mellitus with complication, with long-term current use of insulin: Code(s): E11.8 - Type 2 diabetes mellitus with unspecified complications; Z79.4 - penitentiary (current) use of insulin Category: Medical (6) Type 2 diabetes mellitus with diabetic polyneuropathy: Comment: Followed by Podiatry, Dr. Gonzalez Code(s): E11.42 - Type 2 diabetes mellitus with diabetic polyneuropathy Category: Medical (7) CKD (chronic kidney disease) stage 4, GFR 15-29 ml/min: Code(s): N18.4 - Chronic kidney disease, stage 4 (severe) Category: Medical (8) Emphysema of lung: Code(s): J43.9 - Emphysema, unspecified Category: Medical (9) Annual visit for general adult medical examination with abnormal findings: Code(s): Z00.01 - Encounter for general adult medical examination with abnormal findings Plan The management of diabetes mellitus includes the continuation of current medications: Triceba, Ozempic, and Jardiance. The patient is advised to monitor blood sugar levels regularly and maintain dietary modifications to support glycemic control. A fasting lipid panel has been ordered to assess cholesterol levels, and the patient is encouraged to receive a flu shot this year. For constipation, the patient is advised to switch from Colace to a combination of Senna and docusate, taken at night, to improve bowel movements. If this regimen proves ineffective, further evaluation and alternative treatments will be considered. A referral for a screening colonoscopy has been made to assess for any underlying gastrointestinal issues, given the patient's age and symptoms. The patient is informed about the preparation required for the procedure and the importance of completing it correctly. Patient was informed and verbally consented to the use of an ambient scribe for clinic note documentation during this visit. Orders: Orders Lipid Panel 10/05/24 E78.2 - Mixed hyperlipidemia Medications: New sennosides-docusate sodium 8.6-50 mg (Senna-S) 1 tab-cap PO BEDTIME 30 tabs 3RF
== END 2024-10-05 15:25 | disposition home or self-care (01) ==
LOC: HO.HMCC 14:23
PROVIDERS: PCP Internal Medicine; Visit Provider Internal Medicine
DX: Z00.01 Encounter for general adult medical examination with abnormal findings (principal); I12.9 Hypertensive chronic kidney disease with stage 1 through stage 4 chronic kidney disease, or unspecified chronic kidney disease; F25.9 Schizoaffective disorder, unspecified; E11.29 Type 2 diabetes mellitus with other diabetic kidney complication; E11.8 Type 2 diabetes mellitus with unspecified complications; Z79.4 Long term (current) use of insulin; E11.42 Type 2 diabetes mellitus with diabetic polyneuropathy; N18.4 Chronic kidney disease, stage 4 (severe); J43.9 Emphysema, unspecified; E78.2 Mixed hyperlipidemia

== ENCOUNTER → 2024-10-05 14:23 | Outpatient (BNVA) | payer MEDICARE, MEDICAID, SELFPAY | PROVIDERS: PCP Internal Medicine; Visit Provider Internal Medicine | DX: Z00.01 Encounter for general adult medical examination with abnormal findings (principal); E78.2 Mixed hyperlipidemia; F25.9 Schizoaffective disorder, unspecified; I10 Essential (primary) hypertension; E11.29 Type 2 diabetes mellitus with other diabetic kidney complication; I12.9 Hypertensive chronic kidney disease with stage 1 through stage 4 chronic kidney disease, or unspecified chronic kidney disease; E11.22 Type 2 diabetes mellitus with diabetic chronic kidney disease; N18.4 Chronic kidney disease, stage 4 (severe); E11.42 Type 2 diabetes mellitus with diabetic polyneuropathy; J43.9 Emphysema, unspecified; Z79.4 Long term (current) use of insulin | CPT/HCPCS: 99396 ==

== ENCOUNTER 2024-10-11 08:13 | Outpatient (REF) | payer MEDICARE, MEDICAID, SELFPAY ==
--- OUTSIDE RECORDS SUMMARY | 2024-10-11 08:18 | XMS_ITS | Patient Health Record ---
Author Organization [facility] Address [address] [place] [address] Care Team Providers Care Stone Setter Name Role Phone Pao ZHANG, Rowena Garrido Primary Care Provider Un available Black, Matilda Unavailable [phone] Allergies No Known Allergies Results Component Value [...] Orally Once a day Not-Taking Trulicity Active [place] 3 Active Anoro Ellipta 62.5-25 MCG/ACT 1 [...] morning meal Orally Once a day Active [place] Carbonate 600 MG as directed Ora lly [...] Problem Acquired hammer toe of right foot (9240066931854623 ) Other hammer toe(s) (acquired), right foot (M20.41) Active confirmed Problem Acquired hammer toe of left foot (0719087052831142 ) Other hammer toe(s) (acquired), left foot (M20.42) Active confirmed Problem Localized, primary osteoarthritis of the ankle and/or foot (927049070) Primary osteoarthritis, right ankle and foot (M19.071) Active confirmed Problem Polyneuropathy due to diabetes mellitus type I (060113279) Type 1 diabetes mellitus with diabetic polyneuropathy (E10.42) Active confirmed Vital Signs Blood pressure diastolic 80 mm Hg 08/07/2024 Height 5ft8in in 08/07/2024 Blood pressure systolic 140 mm Hg 08/07/2024 Weight 220 lbs 08/07/2024 BMI 33.45 kg/m2 08/07/2024 Procedures Procedure Date Ordered Date Performed Result Body Sit e 86349-WGZKOAQ NAIL, 6 OR MORE 01/24/2024 N/A 55944-Nlcwbmgf Plate 01/24/2024 N/A 44649-RHKE SKIN LESIONS, OVER 4 01/24/2024 N/A 09936-CMYABVM NAIL, 6 OR MORE 05/01/2024 N/A 40841-TNII SKIN LESIONS, OVER 4 05/01/2024 N/A 11859-JORGBFF NAIL, 6 OR MORE 08/07/2024 N/A 55500-BSRH SKIN LESIONS, OVER 4 08/07/2024 N/A Encounters Encounter Location Date Provider Diagnosis [facility] [place] [address] [place] [address] 01/24/2024 Matilda Black Type 1 diabetes mellitus with diabetic polyneuropathy E10.42 ; Tinea unguium B35.1 and Ingrown nail L60.[address] [address] 05/01/2024 Matilda Gonzalez Type 1 diabetes mellitus with diabetic polyneuropathy E10.42 ; Other hammer toe(s) (acquired), right foot M20.41 ; Tinea unguium B35.1 and Other hammer toe(s) (acquired), left foot M20.[address] [address] 08/07/2024 Matilda Gonzalez Other hammer toe(s) (acquired), right foot M20.41 ; Metatarsalgia, left foot M77.42 ; Type 1 diabetes mellitus with diabetic polyneuropathy E10.42 ; Tinea unguium B35.1 ; Other hammer toe(s) (acquired), left foot M20.42 ; Pain in left foot M79.672 ; Pain in left ankle and joints of left foot M25.572 and Bursitis of intermetatarsal bursa of left foot M77.[address] [address] 10/21/2023 Matilda Gonzalez Assessments Encounter Date Diagnosis [...] Treatment Pending Test Test Name Order Date 40266-ODRRAJX NAIL, 6 OR MORE 01/07/2012 87476-SPPGIOC NAIL, 6 OR MORE 04/11/2012 12076-YHMXKVR NAIL, 6 OR MORE 07/11/2012 95327-EJJOUXN NAIL, 6 OR MORE 10/03/2012 40937-YRSRKHW NAIL, 6 OR MORE 12/19/2012 07806-PMJAOKJ NAIL, 6 OR MORE 03/23/2013 85541-UVIHSTL NAIL, 6 OR MORE 06/21/2013 71625-XLHSRIE NAIL, 6 OR MORE 09/20/2013 38224-UZFHVHE NAIL, 6 OR MORE 12/07/2013 96118-IDGBEEW NAIL, 6 OR MORE 03/14/2014 69169-FQZOSGS NAIL, 6 OR MORE 06/20/2014 78056-IVTTWHX NAIL, 6 OR MORE 08/23/2014 91923-CRFLKHX NAIL, 6 OR MORE 11/22/2014 58247-ZTJPQTB NAIL, 6 OR MORE 02/13/2015 63158-JBPDQOA NAIL, 6 OR MORE 05/15/2015 00434-TKLIBAT NAIL, 6 OR MORE 08/12/2015 21217-HUQMNMU NAIL, 6 OR MORE 11/11/2015 62772-UNYIISD NAIL, 6 OR MORE 02/19/2016 11994-MSMMAWS NAIL, 6 OR MORE 05/21/2016 17251-MCOMMOD NAIL, 6 OR MORE 10/05/2016 37759-XZKJLLC NAIL, 6 OR MORE 01/11/2017 64923-VQBQYNO NAIL, 6 OR MORE 04/12/2017 60469-PXHKJZC NAIL, 6 OR MORE 09/16/2017 75384-GUYVCMA NAIL, 6 OR MORE 12/16/2017 62989-VJCGZKK NAIL, 6 OR MORE 03/17/2018 20769-JYBJKRN NAIL, 6 OR MORE 07/14/2018 91875-VBHKAVW NAIL, 6 OR MORE 01/16/2019 48142-RVXWAOB NAIL, 6 OR MORE 08/17/2019 37149-DYAKXAH NAIL, 6 OR MORE 11/20/2019 39791-CECZGGA NAIL, 6 OR MORE 03/07/2020 19374-HZSTUZW NAIL, 6 OR MORE 06/06/2020 67348-LCBXYWC NAIL, 6 OR MORE 09/12/2020 32525-IOJYDKJ NAIL, 6 OR MORE 12/26/2020 44947-ASGBLBV NAIL, 6 OR MORE 04/07/2021 79497-SATTIGW NAIL, 6 OR MORE 07/07/2021 03813-LEDWAUL NAIL, 6 OR MORE 10/13/2021 48078-EGORRGA NAIL, 6 OR MORE 01/12/2022 72703-QFFCUEW NAIL, 6 OR MORE 06/04/2022 50756-MWKRUZX NAIL, 6 OR MORE 08/24/2022 26231-IKPDVAQ NAIL, 6 OR MORE 11/19/2022 06349-LJFERRW NAIL, 6 OR MORE 02/08/2023 47963-HDPRYYA NAIL, 6 OR MORE 05/20/2023 42709-FAAUFHN NAIL, 6 OR MORE 09/16/2023 57903-QGNUUHL NAIL, 6 OR MORE 01/24/2024 48485-FJQHWFJ NAIL, 6 OR MORE 05/01/2024 99624-JDIJNMW NAIL, 6 OR MORE 08/07/2024 40548-Wmstijdo Plate 01/24/2024 21666-Uvccteul Plate 08/24/2022 61253-Pnknxdhp Plate 10/13/2021 02651-Dscwtaag Plate 07/07/2021 28965-Ddmnmohn Plate 11/22/2014 27601-Kcqffwwc Plate 08/23/2014 16372-Neroymty Plate 06/20/2014 89314-Yqjdtrjm Plate 03/14/2014 09097-Mfpcwvof Plate 12/07/2013 32340-Nhwsogfz Plate 09/20/2013 14013-Eykrqfrd Plate 06/21/2013 89157-Osgctlwd Plate Each Additional 13972-Cfxisjrk Plate Each Additional 10/2021 80140, J0702- INJECT or DRAIN, JOINT/BUR SA 06/06/2020 86864-AOPS SKIN LESIONS, OVER 4 07/08/19 23362-JRHB SKIN LESIONS, OVER 4 04/07/19 40798-ASBQ SKIN LESIONS, OVER 4 12/27/19 83785-KDRH SKIN LESIONS, OVER 4 10/14/19 04905-GYFY SKIN LESIONS, OVER 4 01/13/20 82690-KZVH SKIN LESIONS, OVER 4 08/25/19 23 17380-ZKQS SKIN LESIONS, OVER 4 06/05/19 08116-VQOF SKIN LESIONS, OVER 4 09/16/19 07469-KROX SKIN LESIONS, OVER 4 05/20/19 24 38497-PXSJ SKIN LESIONS, OVER 4 02/09/20 38026-XKND SKIN LESIONS, OVER 4 11/20/19 23 06606-BLVO SKIN LESIONS, OVER 4 01/24/20 51020-WXYT SKIN LESIONS, OVER 4 05/02/19 45424-RTJO SKIN LESIONS, OVER 4 08/08/19 25 86020-XXGD SKIN LESIONS, 2 TO 4 06/07/19 29075-PYJA SKIN LESIONS, 2 TO 4 09/13/19 60195-ALKX SKIN LESIONS, 2 TO 4 03/07/19 00648-VZCH SKIN LESIONS, 2 TO 4 11/20/19 20 77657-NHEE SKIN LESIONS, 2 TO 4 08/17/19 20 50606-PVSN SKIN LESIONS, 2 TO 4 01/17/20 76419-NQGE SKIN LESIONS, 2 TO 4 07/15/19 19403-DJZU SKIN LESIONS, 2 TO 4 03/17/19 60643-MHZZ SKIN LESIONS, 2 TO 4 12/17/19 18 17596-CGQZ SKIN LESIONS, 2 TO 4 09/17/19 18 11532-QAHO SKIN LESIONS, 2 TO 4 01/12/20 15510-ZOYF SKIN LESIONS, 2 TO 4 04/12/19 18 17246-MRWY SKIN LESIONS, 2 TO 4 06/22/19 14 82855-OGIO SKIN LESIONS, 2 TO 4 09/21/19 14 84103-WXCJ SKIN LESIONS, 2 TO 4 12/08/19 14 51913-EJVJ SKIN LESIONS, 2 TO 4 03/23/19 14 54254-EMPG SKIN LESIONS, 2 TO 4 10/04/19 13 31736-MSWE SKIN LESIONS, 2 TO 4 07/12/19 13 48322-JRNY SKIN LESIONS, 2 TO 4 03/14/19 15 38260-KQSC SKIN LESIONS, 2 TO 4 06/21/19 15 16765-GMSV SKIN LESION 05/21/2016 06232-OFIJ SKIN LESION 10/05/2016 Next Appt Details Provider Name:Matilda Gonzalez , 11/06/2024 01:30:00 PM, [address] [place] [address], [phone], Insurance Providers Payer Name Payer Address Payer Phone Subscriber Number Group Number Insured Name Patient Relationship to Insured Coverage Start Date Coverage End Date Medicare National [employer] [address] [facility] [place] [address] [id number] Matty Mejia Self - patient is the insured Medical (General) History Medical History History ICD Code anxiety depression diabetic headaches/migraines high blood pressure psychiatric disorder reflux chicken pox Surgical History Surgery Date(Month/Year) Hospitalization History Reason Date(Month/Year[place] [facility] [place] [facility] [place] sleep study 12[place]2014
--- OUTSIDE RECORDS SUMMARY | 2024-10-11 08:19 | XMS_ITS | Clinical Summary ---
Author Organization [facility] Address [address] [facility] [address] [place] [address] Phone Care Team Providers Care Attractions Associate Name Role Phone Rowena Cedeno MD Primary Care Provider Bruce Ye MD Unavailable [phone] Raymundo Adams MD Unavailable [phone] Ishmael Beckwith MD Unavailable [phone] Matilda Gonzalez DPM Unavailable Paxton Nance DDS Unavailable Efraín Lopez DPM Unavailable Renee vailable Allergies No known active allergies Medications haloperidoL (HALDOL) 5 MG tablet Take 5 mg by mouth 2 (two) times a day. And as needed Active albuterol 90 mcg/actuation inhaler Inhale 2 puffs into the lungs every 6 (six) hours as needed for wheezing. Active umeclidinium-vi lanteroL (ANORO ELLIPTA) 62.5-25 mcg/actuation diskus inhaler Inhale [...] 24 Active insulin degludec U-100 (TRESIBA) injection penIndications: Type 2 diabetes mellitus with stage 4 chronic kidney disease, with long-term current use of insulin,Type 2 diabetes mellitus with hyperglycemia, with long-term current use of insulin Inject 40 Units under the skin nightly at bedtime. 45 mL 1 10/05/19 25 Active semaglutide (OZEMPIC) 1 mg/dose (4 mg/3 mL) subcutaneous injection penIndications: Type 2 diabetes mellitus with stage 4 chronic kidney disease, with long-term current use of insulin,Type 2 diabetes mellitus with hyperglycemia, with long-term current use of insulin Inject 1 mg under the skin once a week. 3 mL 10/05/19 25 Active insulin lispro (HUMALOG KWIKPEN INSULIN) 100 unit/mL injection penIndications: Type 2 diabetes mellitus with stage 4 chronic kidney disease, with long-term current use of insulin,Type 2 diabetes mellitus with hyperglycemia, with long-term current use of insulin INJECT ONCE DAILY WITH BREAKFAST BEFORE eating VIA sliding scale 70-100 4u; 101-150 6u; 151-200 8u; 201-250 10u; 251-300 12u; 301-350 14u; 351-400; 16u; >400 18u 15 mL 1 10/05/19 25 Active HUMALOG KWIKPEN INSULIN 100 unit/mL kwikpenIndicati ons:Type 2 diabetes mellitus with stage 4 chronic [...] 15 mL 1 06/15/19 25 025 Discontinued insulin degludec U-100 (TRESIBA) injection penIndications: Type 2 diabetes mellitus with stage 4 chronic kidney disease, with long-term current use of insulin,Type 2 diabetes mellitus with hyperglycemia, with long-term current use of insulin Inject 45 Units under the skin nightly at bedtime. 45 mL 1 06/15/19 25 025 Discontinued(R eorder) semaglutide (OZEMPIC) 1 mg/dose (4 mg/3 mL) subcutaneous injection penIndications: Type 2 diabetes mellitus with stage 4 chronic kidney disease, with long-term current use of insulin,Type 2 diabetes mellitus with hyperglycemia, with long-term current use of insulin Inject 1 mg under the skin every 7 days. 9 mL 06/15/19 25 025 Discontinued semaglutide (OZEMPIC) 1 mg/dose (4 mg/3 mL) subcutaneous injection penIndications: Type 2 diabetes mellitus with stage 4 chronic kidney disease, with long-term current use of insulin,Type 2 diabetes mellitus with hyperglycemia, with long-term current use of insulin INJECT 1mg UNDER THE SKIN EVERY 7 DAYS 3 mL 09/22/19 25 025 Discontinued(R eorder) insulin lispro (HUMALOG KWIKPEN INSULIN) 100 unit/mL injection penIndications: Type 2 diabetes mellitus with stage 4 chronic kidney disease, with long-term current use of insulin,Type 2 diabetes mellitus with hyperglycemia, with long-term current use of insulin INJECT ONCE DAILY WITH BREAKFAST BEFORE eating VIA sliding scale 70-100 2u; 101-150 4u; 151-200 6u; 201-250 8u; 251-300 10u; 301-350 12u; 351-400; 14u; >400 16u 15 mL 09/22/19 25 025 Discontinued(R gautam) Active Problems Problem Noted Date Diagnosed Date Type 2 diabetes mellitus wit h stage 4 chronic kidney disease, with long-term current use of insulin 05/03/2023 Assessment & Plan (10/04/2024 1:44 PM EDT): Uncontrolled. Hemoglobin A1c 7.8%. He continues to have postprandial hyperglycemia for breakfast. He states that the visiting nurse comes late so he started administering Humalog himself and he also administers Tresiba in the morning. What he is doing wrong is that he eats and drinks his coffee first then administers the Humalog after the fact. But the damage has already been done the glucose are elevated and that he is prone to develop hypoglycemia. So he is causing his own problems. I am going to decrease the Tresiba to 40 units. He should continue Ozempic at the current dose continue Jardiance. He should repeat hemoglobin A1c prior to the follow-up visit in 3 months. 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 The patient has current severe hypoglycemia. [...] Encounters Date Type Department Care Team Description 10/04/2024 1:20 PM EDT Office Visit [facility] [address] [place] [address] Efraín Bhatia, Type 2 diabetes mellitus with stage 4 chronic kidney disease, with long-term current use of insulin (Primary Dx); Type 2 diabetes mellitus with hyperglycemia, with long-term current use of insulin 09/20/2024 Refill [facility] [address] [place] [address] Efraín Bhatia DO Medication Refill from Last [...] Sign Reading Time Taken Comments Blood Pressure 118/76 10/04/2024 12:57 PM EDT Pulse 93 10/04/2024 12:57 PM EDT Temperature - - Respiratory Rate - - Oxygen Saturation 97% 10/04/2024 12:57 PM EDT Inhaled Oxygen Concentration - - Weight 98.4 kg (217 lb) 10/04/2024 12:57 PM EDT Height 172.7 cm (5' 8 ) 06/14/2024 12:02 PM EDT Body Mass Index 32.99 06/14/2024 12:02 PM EDT Plan of Treatment Upcoming Encounters Date Type Department Care Team (Late st Contact Info) Description 01/29/2025 1:20 PM EST Office Visit [facility] [address] [place] [address] [phone] Efraín Bhatia DO [address] [place] [phone] [email or web address] Health Maintenance Due Date Last Done Comments ABSOLUTE NEUTROPHIL COUNT (ANC) 1979 Adult Td,Tdap Booster 1979 DEPRESSION SCREENING 1991 HEPATITIS C SCREENING 1997 HIV ONE-TIME SCREENING (18-65 YEARS) 1997 PNEUMOCOCCAL VACCINES (0-49 years) (1 of 2 - PCV) 1998 DIABETIC EYE EXAM 04/05/2023 COVID-19 VACCINE ( - season) 2023 COLOGUARD 02/16/2024 COLONOSCOPY 02/16/2024 COLORECTAL CANCER SCREENING 02/16/2024 FIT TEST 02/16/2024 FOBT 02/16/2024 SIGMOIDOSCOPY 02/16/2024 VIRTUAL COLONOSCOPY 02/16/2024 BLOOD PRESSURE 04/06/2025 10/04/2024 HEMOGLOBIN A1C 04/06/2025 10/04/2024, 05/30, 06/06/2024, Additional history exists SMOKING Hx and SMOKELESS [...] Procedure Name Priority Date/Time Associated Diagnosis Comments POCT HEMOGLOBIN A1C Routine 10/04/2024 1 :40 PM EDT Type 2 diabetes mellitus with stage 4 chronic kidney disease, with long-term current use of insulin Type 2 diabetes mellitus with hyperglycemia, with long-term current use of insulin RENAL PANEL Routine 06/15/2024 8:46 AM EDT Type 2 diabetes mellitus with stage 4 chronic kidney disease, with long-term current use of insulin from Last 3 Months or Most Recently Relevant to Health Maintenance Results * (ABNORMAL) POCT Hemoglobin A1c (10/04/2024 1:40 PM EDT) Hemoglobin A1c 7.8(A) 4.2 - 5.6 % Other 10/04/2024 1:40 PM EDT Efraín Bhatia DO POINT OF CARE TEST ORDERABLES Fi nal Result * (ABNORMAL) Renal panel (06/15/2024 8:46 AM EDT) SODIUM 134 133 - 146 mmol/L [facility] POTASSIUM 4.9 3.3 - 5.1 mmol/L [facility] Comment:Specimen slightly he molyzed, result may be falsely elevated. CHLORIDE 102 96 - 108 mmol/L [facility] CO2 22 21 - 35 mmol/L [facility] GLUCOSE 188(H) 70 - 99 mg/dL [facility] BUN 36(H) 6 - 19 mg/dL [facility] CREATININE 2.10(H) 0.5 - 1.5 mg/dL [facility] CALCIUM 9.9 8.4 - 10.3 mg/dL [facility] PHOSPHORUS 3.7 2.7 - 4.5 mg/dL [facility] ALBUMIN 4.0 3.9 - 4.8 g/dL [facility] EGFR 39(L) >59 mL/min/1.7 3m2 [facility] Comment:Estimated glomerular filtration rate calculated using the CKD-EPI refit equation. ANION GAP 15 10 - 20 mmol/L [facility] Blood 06/15/2024 8:46 AM EDT 06/15/2024 8:48 AM EDT Efraín Bhatia DO LAB BLOOD ORDERABLES Final Resul t [facility] [address] [place] [address] from Last 3 Months or Most Recently Relevant to Health Maintenance Insurance [facility] MEDICARE PART A & B [place] MEDICARE PART A & B [facility] MEDICARE PART A & B [place] MEDICARE PART A & B [facility] MEDICARE PART A & B [facility] MEDICARE PART A & B Care Teams Attractions Associate Relationship Specialty Start Date End Date Rowena Cedeno MD [address] [place] [address] [place] [address] PCP - General Internal Medicine 02/24/23 Bruce Ye MD [address] [place] [id number] Nephrology 04/05/23 Raymundo Adams MD [address] [place] [address] IGNACIO ZAMORA [address] Family Medicine 04/05/23 Ishmael Beckwith MD [address] [place] [address] [address] [address] [email or web address] 04/05/23 Matilda Gonzalez DPM [address] [place] [address] Podiatry 04/05/23 Paxton Nance DDS [address] [place] [id number] 04/05/23 Efraín Lopez DPM Podiatry 04/05/23 Additional Source Comments The information contained in this document represents components of the legal health record. It is not the complete legal health record.[facility]
[2024-10-11 11:20] LABS: Appearance Urine Clear; Glucose Urine UA 500 mg/dL (Negative); PH 6.0 (5.0-9.0); Specific Gravity - Urine <= 1.005 (1.005-1.025)
[2024-10-11 11:22] LABS: Alanine Aminotransferase 22 U/L (0-40); Albumin Level 3.9 g/dL (3.5-5.0); Alkaline Phosphatase 83 U/L (39-117); Anion Gap 12 (12-20); Aspartate Amino Transferase 20 U/L (5-37); Blood Urea Nitrogen 17 mg/dL (9-16); Calcium 9.5 mg/dL (8.4-10.2); Carbon Dioxide 21 mmol/L (22-29); Chloride 103 mmol/L (96-108); Cholesterol 127 mg/dL (<200); Estimated Glomerular Filt Rate 42; HDL Cholesterol 22 mg/dL (>40); Potassium 4.6 mmol/L (3.3-5.1); Sodium 131 mmol/L (135-145); Total Protein 7.0 g/dL (6.5-8.0); Triglycerides 363 mg/dL (<150)
[2024-10-11 12:03] LABS: Total Protein Urine Random < 7 mg/dL (<12)
== END 2024-10-11 08:14 | disposition home or self-care (01) ==
LOC: HO.HMGCLDS 08:13
PROVIDERS: PCP Internal Medicine; Referring Provider Internal Medicine Hypertension Specialist; Visit Provider Internal Medicine
DX: E78.2 Mixed hyperlipidemia (principal); N18.30 Chronic kidney disease, stage 3 unspecified
CPT/HCPCS: 36415; 80053; 80061; 81003; 82570; 84156

== ENCOUNTER 2024-10-12 14:17 | Outpatient (AMB) | payer MEDICARE, MEDICAID, SELFPAY ==
[2024-10-12 14:39] VITALS: BP 111/70; PULSE 91; O2SAT 97; BMI 32.5
--- NOTE | 2024-10-12 14:39 | A.OFFVIS_ITS ---
Vital Signs 10/12/24 14:39 Height 5 ft 8 in Weight 214 lb BMI 32.5 BP 111/70 Blood Pressure Location Rt brachial Position Sitting Pulse 91 Pulse Source Pulse Oximeter Pulse Oximetry (%) 97 Oxygen Delivery Method Room Air Intake Visit Reasons: Emphysema Allergies No Known Allergies Allergy (Verified 10/12/24 14:47) HPI HPI Emphysema: Details: 44-year-old gentleman, active 40+ pack-year smoker with underlying schizophrenia followed for emphysema, environmental allergies, and bilateral pulmonary nodule.?Patient continues on Anoro, albuterol MDI, and Flonase with reasonable control of his symptoms. He denies any recent exacerbations. His CT chest shows slowly increasing pulmonary nodules, but his PET scan in August 22 showed no FDG avidity, in his follow-up CT chest after PET scan showed no changes in his underlying pulmonary nodules. 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 Pre-ulcerative calluses CKD (chronic kidney disease) stage 3, GFR 30-59 ml/min Tinea unguium Type 2 diabetes mellitus with diabetic polyneuropathy CKD (chronic kidney disease) stage 4, GFR 15-29 ml/min Type 2 diabetes mellitus with complication, with long-term current use of insulin Uncontrolled diabetes mellitus with hyperglycemia Hypercalcemia Noncompliance with medication regimen Rash and nonspecific skin eruption Tremor Vitamin D deficiency Mixed dyslipidemia Restrictive airway disease Type 2 diabetes mellitus with other diabetic kidney complication Solitary pulmonary nodule on lung CT Smoker unmotivated to quit Obesity (BMI 30-39.9) Schizoaffective disorder Essential hypertension Surgical History No pertinent past surgical history Family History Father Unknown family medical history Mother Unknown family medical history Brother No problems noted. Sister No problems noted. Social History Housing: Other Housing Other:: long-term Alcohol intake: never Patient Tobacco Use Status: Current everyday Tobacco user Cigarette Packs Per Day: 2 e-Cigarette/Vaping Use: Never Used Substance Use Type: Marijuana Advance Directives Date on File: 12/06/23 service: No Current occupational status: disabled Cognitive needs: No Hearing needs: No Vision needs: Yes Review of Systems Const Denies daytime sleepiness, Denies excessive sweating, Denies fatigue, Denies fever(s), Denies lethargy, Denies malaise, Denies night sweats, Denies snoring and Denies weight loss Eyes Denies blurry vision and Denies itchy eyes ENT Denies nasal congestion, Denies post nasal drip, Denies sinus pain, Denies sinus pressure and Denies other ( Thrush) Card Denies chest pain, Denies pedal edema, Denies dyspnea, Denies orthopnea and Denies paroxysmal nocturnal dyspnea Resp Denies cough, Denies hemoptysis, Denies excessive phlegm production, Denies dyspnea, Denies snoring and Denies wheezing GI Denies abdominal pain and Denies heartburn Musc Denies myalgias, Denies arthralgias and Denies joint swelling Skin/Breast Denies rash Neuro Denies memory loss and Denies seizure-like activity Psych Denies abnormal sleep pattern, Denies anxiety and Denies memory loss Endo Denies excessive sweating, Denies fatigue and Denies heat intolerance Jimmy/Lymph Denies easy bruising Aller/Immun Denies itchy eyes, Denies seasonal rhinorrhea and Denies wheezing Physical Exam Vital Signs: Last Vital Signs Pulse 91 10/12/24 14:39 BP 111/70 10/12/24 14:39 Pulse Ox 97 10/12/24 14:39 Oxygen Delivery Method Room Air 10/12/24 14:39 BMI result Body Mass Index 32.5 Const General: no acute distress and alert Nutritional Appearance: not obese Orientation/consciousness: Other orientation findings ( oriented) HEENT Head: Yes atraumatic Eyes General: appearance normal, both eyes and all related structures Sclerae: sclerae normal EOM: EOMs intact bilaterally Neck Neck: Yes supple Lymphatic: no lymphadenopathy noted Resp Effort & Inspection: normal respiratory effort and no use of accessory muscles Auscultation: clear to auscultation bilaterally Cardio Rate: regular rate Rhythm: regular rhythm Heart sounds: no gallops, no murmurs and no rubs Skin General skin exam: other ( warm) Extrem General: No clubbing, No cyanosis and No edema Assessment & Plan Assessment & Plan (1) Emphysema of lung: Code(s): J43.9 - Emphysema, unspecified Category: Medical Plan: Well controlled on current regimen of Anoro and albuterol MDI. Continue current regimen. (2) Pulmonary nodules: Code(s): R91.8 - Other nonspecific abnormal finding of lung field Category: Medical Plan: Results of follow-up CT chest reviewed, shows stable pulmonary nodules. Will repeat CT chest in 12 months, if stable at that time, then no further imaging follow-up would be required until patient would qualify for lung cancer screening. Orders: Orders CT chest wo IV con 10/02/25 R91.8 - Other nonspecific abnormal finding of lung field Coding Level of Care Code Est Pt Level 4 (88406) Diagnoses Emphysema of lung J43.9 Pulmonary nodules R91.8
--- OUTSIDE RECORDS SUMMARY | 2024-10-12 15:04 | XMS_ITS | Clinical Summary ---
Author Organization [facility] Address [address] 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 The patient has current severe hypoglycemia. [...] PM EDT Office Visit [facility] [address] [place] [address] Efraín Bhatia, Type 2 diabetes mellitus with stage 4 chronic kidney disease, with long-term current use of insulin (Primary Dx); Type 2 diabetes mellitus with hyperglycemia, with long-term current use of insulin 09/20/2024 Refill [facility] [address] [place] [address] Efraín Bhatia DO Medication Refill from Last [...] 1:20 PM EST Office Visit [facility] [address] [place] [address] [phone] Efraín Bhatia DO [address] [place] [phone] [email or web address] EDT) SODIUM 134 133 - 146 mmol/L [facility] POTASSIUM 4.9 3.3 - 5.1 mmol/L [facility] Comment:Specimen slightly he molyzed, result may be falsely elevated. CHLORIDE 102 96 - 108 mmol/L [facility] CO2 22 21 - 35 mmol/L [facility] GLUCOSE 188(H) 70 - 99 mg/dL [facility] BUN 36(H) 6 - 19 mg/dL [facility] CREATININE 2.10(H) 0.5 - 1.5 mg/dL [facility] CALCIUM 9.9 8.4 - 10.3 mg/dL [facility] PHOSPHORUS 3.7 2.7 - 4.5 mg/dL [facility] ALBUMIN 4.0 3.9 - 4.8 g/dL [facility] EGFR 39(L) >59 mL/min/1.7 3m2 [facility] Comment:Estimated glomerular filtration rate calculated using the CKD-EPI refit equation. ANION GAP 15 10 - 20 mmol/L [facility] Blood 06/15/2024 8:46 AM EDT 06/15/2024 8:48 AM EDT Efraín Bhatia DO LAB BLOOD ORDERABLES Final Resul t [facility] [address] [place] [address] from Last 3 Months or Most Recently Relevant to Health Maintenance Insurance [facility] MEDICARE PART A & B [place] MEDICARE PART A & B [facility] MEDICARE PART A & B [place] PART A & B [facility] MEDICARE PART A & B [facility] MEDICARE PART A & B Care Teams Wire Drawer Relationship Specialty Start Date End Date Rowena Cedeno MD [address] [place] [address] [place] [address] PCP - General Internal Medicine 02/24/23 Bruce Ye MD [address] [place] [id number] Nephrology 04/05/23 Raymundo Adams MD [address] [place] [address] IGNACIO ZAMORA [address] Family Medicine 04/05/23 Ishmael Beckwith MD [address] [place] [address] Dr [address] [address] [email or web address] 04/05/23 Matilda Gonzalez DPM [address] [place] [address] Podiatry 04/05/23 Paxton Nance DDS [address] [place] [id number] 04/05/23 Efraín Lopez DPM Podiatry 04/05/23 Additional Source Comments The information contained in this document represents components of the legal health record. It is not the complete legal health record.[facility]
--- OUTSIDE RECORDS SUMMARY | 2024-10-12 15:04 | XMS_ITS | Patient Health Record ---
[facility] Address [address] [facility] [place] [address] Care Team Providers Care Acid Pump Operator Name Role Phone Pao ZHANG, Rowena Garrido Primary Care Provider Un available Black, Matilda Unavailable [phone] Allergies No Known Allergies Results Component Value [...] Orally Once a day Not-Taking Trulicity Active [place] 3 Active Anoro Ellipta 62.5-25 MCG/ACT 1 [...] morning meal Orally Once a day Active [place] Carbonate 600 MG as directed Ora lly [...] Problem Acquired hammer toe of right foot (9199180601840313 ) Other hammer toe(s) (acquired), right foot (M20.41) Active confirmed Problem Acquired hammer toe of left foot (5302567126659467 ) Other hammer toe(s) (acquired), left foot (M20.42) Active confirmed Problem Localized, primary osteoarthritis of the ankle and/or foot (885369203) Primary osteoarthritis, right ankle and foot (M19.071) Active confirmed Problem Polyneuropathy due to diabetes mellitus type I (822529605) Type 1 diabetes mellitus with diabetic polyneuropathy (E10.42) Active confirmed Vital Signs Blood pressure diastolic 80 mm Hg 08/07/2024 Height 5ft8in in 08/07/2024 Blood pressure systolic 140 mm Hg 08/07/2024 Weight 220 lbs 08/07/2024 BMI 33.45 kg/m2 08/07/2024 Procedures Procedure Date Ordered Date Performed Result Body Sit e 23867-DHKOLTN NAIL, 6 OR MORE 01/24/2024 N/A 04210-Xhqwvfzm Plate 01/24/2024 N/A 93374-TOFW SKIN LESIONS, OVER 4 01/24/2024 N/A 57789-NYISGCC NAIL, 6 OR MORE 05/01/2024 N/A 49848-OHVT SKIN LESIONS, OVER 4 05/01/2024 N/A 13191-CBIOPJO NAIL, 6 OR MORE 08/07/2024 N/A 70895-HSBT SKIN LESIONS, OVER 4 08/07/2024 N/A Encounters Encounter Location Date Provider Diagnosis [facility] [place] [address] [place] [address] 01/24/2024 Matilda Black Type 1 diabetes mellitus with diabetic polyneuropathy E10.42 ; Tinea unguium B35.1 and Ingrown nail L60.[address] [address] 05/01/2024 Matilda Gonzalez Type 1 diabetes mellitus with diabetic polyneuropathy E10.42 ; Other hammer toe(s) (acquired), right foot M20.41 ; Tinea unguium B35.1 and Other hammer toe(s) (acquired), left foot M20.[address] [address] 08/07/2024 Matilda Gonzalez Other hammer toe(s) (acquired), right foot M20.41 ; Metatarsalgia, left foot M77.42 ; Type 1 diabetes mellitus with diabetic polyneuropathy E10.42 ; Tinea unguium B35.1 ; Other hammer toe(s) (acquired), left foot M20.42 ; Pain in left foot M79.672 ; Pain in left ankle and joints of left foot M25.572 and Bursitis of intermetatarsal bursa of left foot M77.[address] [address] 10/21/2023 Matilda Gonzalez Assessments Encounter Date Diagnosis [...] Treatment Pending Test Test Name Order Date 68168-TXSDRAX NAIL, 6 OR MORE 01/07/2012 17453-SVCYVVS NAIL, 6 OR MORE 04/11/2012 31381-DXSIHTO NAIL, 6 OR MORE 07/11/2012 06577-BEVSFTK NAIL, 6 OR MORE 10/03/2012 92438-APHWGSB NAIL, 6 OR MORE 12/19/2012 34842-VRJSPNJ NAIL, 6 OR MORE 03/23/2013 64078-LJGYTKR NAIL, 6 OR MORE 06/21/2013 71428-PEMZCRI NAIL, 6 OR MORE 09/20/2013 39905-LAUYTDL NAIL, 6 OR MORE 12/07/2013 35172-AEFTWJB NAIL, 6 OR MORE 03/14/2014 42876-ZGEWVYG NAIL, 6 OR MORE 06/20/2014 19156-XNXCMMI NAIL, 6 OR MORE 08/23/2014 30158-TJKODFW NAIL, 6 OR MORE 11/22/2014 62229-URJQVSI NAIL, 6 OR MORE 02/13/2015 50691-YOQVXOW NAIL, 6 OR MORE 05/15/2015 97849-ZPNPZTP NAIL, 6 OR MORE 08/12/2015 53146-OXYBLDA NAIL, 6 OR MORE 11/11/2015 57496-ADAJHYB NAIL, 6 OR MORE 02/19/2016 54355-HRRHYMW NAIL, 6 OR MORE 05/21/2016 99406-PSEISUT NAIL, 6 OR MORE 10/05/2016 20350-NSFSXUI NAIL, 6 OR MORE 01/11/2017 32824-HGRTRKR NAIL, 6 OR MORE 04/12/2017 42334-YVIJYLV NAIL, 6 OR MORE 09/16/2017 29039-QFJJOKW NAIL, 6 OR MORE 12/16/2017 25704-XUZNZRO NAIL, 6 OR MORE 03/17/2018 47251-QRAAEYU NAIL, 6 OR MORE 07/14/2018 31837-KDMWBAW NAIL, 6 OR MORE 01/16/2019 55793-GCTRQHV NAIL, 6 OR MORE 08/17/2019 18551-JVSKZOR NAIL, 6 OR MORE 11/20/2019 47871-MNRRSVV NAIL, 6 OR MORE 03/07/2020 23918-MGTBYMG NAIL, 6 OR MORE 06/06/2020 62581-QVSDVAO NAIL, 6 OR MORE 09/12/2020 72684-AALNPOH NAIL, 6 OR MORE 12/26/2020 17105-JNLNLIB NAIL, 6 OR MORE 04/07/2021 79567-AYMJRUV NAIL, 6 OR MORE 07/07/2021 45655-IQXHDWR NAIL, 6 OR MORE 10/13/2021 81877-XYMXMDX NAIL, 6 OR MORE 01/12/2022 22521-JVQMLJE NAIL, 6 OR MORE 06/04/2022 03423-KNGJEOU NAIL, 6 OR MORE 08/24/2022 02519-CBQGLNZ NAIL, 6 OR MORE 11/19/2022 07107-FIWEPHF NAIL, 6 OR MORE 02/08/2023 93629-EZTBCUD NAIL, 6 OR MORE 05/20/2023 58664-LMWKOYB NAIL, 6 OR MORE 09/16/2023 66080-NIIQQFM NAIL, 6 OR MORE 01/24/2024 87150-XRFTWWO NAIL, 6 OR MORE 05/01/2024 62471-KVBIUIU NAIL, 6 OR MORE 08/07/2024 49382-Tkavtxij Plate 01/24/2024 22820-Lhoueevg Plate 08/24/2022 96259-Xwzlcjsd Plate 10/13/2021 94824-Xztwpmwz Plate 07/07/2021 57879-Dzxvmwkt Plate 11/22/2014 09881-Ngkjjbsn Plate 08/23/2014 26429-Zrrntyyh Plate 06/20/2014 06075-Exnnnyif Plate 03/14/2014 46652-Idvtabja Plate 12/07/2013 37097-Sunlrpwf Plate 09/20/2013 51368-Tqycldeo Plate 06/21/2013 93786-Lldophpw Plate Each Additional 01250-Beliubrq Plate Each Additional 10/2021 50822, J0702- INJECT or DRAIN, JOINT/BUR SA 06/06/2020 66498-UHOJ SKIN LESIONS, OVER 4 07/08/19 95087-KDUI SKIN LESIONS, OVER 4 04/07/19 98046-YBEA SKIN LESIONS, OVER 4 12/27/19 84919-IFAZ SKIN LESIONS, OVER 4 10/14/19 54285-STNU SKIN LESIONS, OVER 4 01/13/20 55991-JKJP SKIN LESIONS, OVER 4 08/25/19 23 08696-PZKM SKIN LESIONS, OVER 4 06/05/19 56194-ZKJS SKIN LESIONS, OVER 4 09/16/19 75937-RSKL SKIN LESIONS, OVER 4 05/20/19 24 85994-SLKX SKIN LESIONS, OVER 4 02/09/20 32725-TZUA SKIN LESIONS, OVER 4 11/20/19 23 82035-SOQR SKIN LESIONS, OVER 4 01/24/20 06293-YTWP SKIN LESIONS, OVER 4 05/02/19 49448-SBEJ SKIN LESIONS, OVER 4 08/08/19 25 13385-IDAP SKIN LESIONS, 2 TO 4 06/07/19 99449-AXBV SKIN LESIONS, 2 TO 4 09/13/19 12871-SRGY SKIN LESIONS, 2 TO 4 03/07/19 69087-OVOX SKIN LESIONS, 2 TO 4 11/20/19 20 80517-EZBV SKIN LESIONS, 2 TO 4 08/17/19 20 95242-KQSO SKIN LESIONS, 2 TO 4 01/17/20 69363-JIBJ SKIN LESIONS, 2 TO 4 07/15/19 88887-EEUX SKIN LESIONS, 2 TO 4 03/17/19 52524-JWUR SKIN LESIONS, 2 TO 4 12/17/19 18 45729-LKPV SKIN LESIONS, 2 TO 4 09/17/19 18 68519-JPRN SKIN LESIONS, 2 TO 4 01/12/20 86707-JQID SKIN LESIONS, 2 TO 4 04/12/19 18 95099-OXRF SKIN LESIONS, 2 TO 4 06/22/19 14 89621-ZSLH SKIN LESIONS, 2 TO 4 09/21/19 14 39404-TYED SKIN LESIONS, 2 TO 4 12/08/19 14 55476-HTNY SKIN LESIONS, 2 TO 4 03/23/19 14 20575-OQSJ SKIN LESIONS, 2 TO 4 10/04/19 13 86122-RARJ SKIN LESIONS, 2 TO 4 07/12/19 13 68055-QXDZ SKIN LESIONS, 2 TO 4 03/14/19 15 35394-AVGE SKIN LESIONS, 2 TO 4 06/21/19 15 34751-ADER SKIN LESION 05/21/2016 74145-GDKZ SKIN LESION 10/05/2016 Next Appt Details Provider Name:Matilda Gonzalez , 11/06/2024 01:30:00 PM, [address] [place] [address], [address], Insurance Providers Payer Name Payer Address Payer Phone Subscriber Number Group Number Insured Name Patient Relationship to Insured Coverage Start Date Coverage End Date Medicare National Govt Svcs Inc [address] [place] [address] [id number] Matty Mejia Self - patient is the insured Medical (General) History Medical History History ICD Code anxiety depression diabetic headaches/migraines high blood pressure psychiatric disorder reflux chicken pox Surgical History Surgery Date(Month/Year) Hospitalization History Reason Date(Month/Year) bad hip [facility] [place] [facility] 10/31/2023 [facility] [place] [facility]- pt cant remember overnight sleep study 12/2014
== END 2024-10-12 15:09 | disposition home or self-care (01) ==
LOC: HO.HPS 14:18
PROVIDERS: PCP Internal Medicine; Visit Provider Internal Medicine Pulmonary Disease
DX: J43.9 Emphysema, unspecified (principal); R91.8 Other nonspecific abnormal finding of lung field
CPT/HCPCS: 99214

== ENCOUNTER → 2024-10-12 14:17 | Outpatient (BNVA) | payer MEDICARE, MEDICAID, SELFPAY | PROVIDERS: PCP Internal Medicine; Visit Provider Internal Medicine Pulmonary Disease | DX: J43.9 Emphysema, unspecified (principal); R91.8 Other nonspecific abnormal finding of lung field; F17.210 Nicotine dependence, cigarettes, uncomplicated; Z79.899 Other long term (current) drug therapy | CPT/HCPCS: 99212 ==

== ENCOUNTER 2024-10-25 10:58 | Outpatient (REF) | payer MEDICARE, MEDICAID, SELFPAY ==
--- OUTSIDE RECORDS SUMMARY | 2024-10-25 11:55 | XMS_ITS | Patient Health Record ---
Author Organization [facility] Address [address] [facility] [place] [address] Care Team Providers Care Mortgage Loan Processing Clerk Name Role Phone Pao ZHANG, Rowena Garrido Primary Care Provider Un available Black, Matilda Unavailable [phone] Allergies No Known Allergies Results Component Value [...] Orally Once a day Not-Taking Trulicity Active [place] 3 Active Anoro Ellipta 62.5-25 MCG/ACT 1 [...] morning meal Orally Once a day Active [place] Carbonate 600 MG as directed Ora lly [...] Problem Acquired hammer toe of right foot (0395188092446512 ) Other hammer toe(s) (acquired), right foot (M20.41) Active confirmed Problem Acquired hammer toe of left foot (5130684309626940 ) Other hammer toe(s) (acquired), left foot (M20.42) Active confirmed Problem Localized, primary osteoarthritis of the ankle and/or foot (622188710) Primary osteoarthritis, right ankle and foot (M19.071) Active confirmed Problem Polyneuropathy due to diabetes mellitus type I (451474219) Type 1 diabetes mellitus with diabetic polyneuropathy (E10.42) Active confirmed Vital Signs Blood pressure diastolic 80 mm Hg 08/07/2024 Height 5ft8in in 08/07/2024 Blood pressure systolic 140 mm Hg 08/07/2024 Weight 220 lbs 08/07/2024 BMI 33.45 kg/m2 08/07/2024 Procedures Procedure Date Ordered Date Performed Result Body Sit e 18292-IYNOVXA NAIL, 6 OR MORE 01/24/2024 N/A 20825-Cfufxqkz Plate 01/24/2024 N/A 84843-LFYC SKIN LESIONS, OVER 4 01/24/2024 N/A 68857-CTOXZAC NAIL, 6 OR MORE 05/01/2024 N/A 50476-JHGA SKIN LESIONS, OVER 4 05/01/2024 N/A 05613-NSDVRXR NAIL, 6 OR MORE 08/07/2024 N/A 25802-YJVF SKIN LESIONS, OVER 4 08/07/2024 N/A Encounters Encounter Location Date Provider Diagnosis [facility] [place] [address] [place] [address] 01/24/2024 Matilda Black Type 1 diabetes mellitus with diabetic polyneuropathy E10.42 ; Tinea unguium B35.1 and Ingrown nail L60.[address] [facility] [address] 05/01/2024 Matilda Gonzalez Type 1 diabetes mellitus with diabetic polyneuropathy E10.42 ; Other hammer toe(s) (acquired), right foot M20.41 ; Tinea unguium B35.1 and Other hammer toe(s) (acquired), left foot M20.[address] [address] 08/07/2024 Matilda Gonzalez Other hammer toe(s) (acquired), right foot M20.41 ; Metatarsalgia, left foot M77.42 ; Type 1 diabetes mellitus with diabetic polyneuropathy E10.42 ; Tinea unguium B35.1 ; Other hammer toe(s) (acquired), left foot M20.42 ; Pain in left foot M79.672 ; Pain in left ankle and joints of left foot M25.572 and Bursitis of intermetatarsal bursa of left foot M77.52 Assessments Encounter Date Diagnosis (ICD Code) Assessment [...] Treatment Pending Test Test Name Order Date 72898-HUANEXV NAIL, 6 OR MORE 01/07/2012 69840-NRGVWAN NAIL, 6 OR MORE 04/11/2012 05368-LPRPHKH NAIL, 6 OR MORE 07/11/2012 13965-NKITYGD NAIL, 6 OR MORE 10/03/2012 81427-OOMRSLF NAIL, 6 OR MORE 12/19/2012 00734-TGIVZFV NAIL, 6 OR MORE 03/23/2013 86876-PJARPFJ NAIL, 6 OR MORE 06/21/2013 17945-CTQNJND NAIL, 6 OR MORE 09/20/2013 75670-WLOQFYE NAIL, 6 OR MORE 12/07/2013 94152-ENCRGEB NAIL, 6 OR MORE 03/14/2014 80116-AKVHHWJ NAIL, 6 OR MORE 06/20/2014 70283-IKFAUXX NAIL, 6 OR MORE 08/23/2014 21635-QEGGAVU NAIL, 6 OR MORE 11/22/2014 94043-TDXNCNT NAIL, 6 OR MORE 02/13/2015 12113-DTBYZBQ NAIL, 6 OR MORE 05/15/2015 29343-RLVMQUF NAIL, 6 OR MORE 08/12/2015 03475-HFTEUCU NAIL, 6 OR MORE 11/11/2015 33150-BYNHYYE NAIL, 6 OR MORE 02/19/2016 12391-JPUMLJH NAIL, 6 OR MORE 05/21/2016 00279-JWUIQZF NAIL, 6 OR MORE 10/05/2016 44068-XKURLPN NAIL, 6 OR MORE 01/11/2017 57920-SOCVNZX NAIL, 6 OR MORE 04/12/2017 35613-TWFPOFU NAIL, 6 OR MORE 09/16/2017 64652-MAMJLHM NAIL, 6 OR MORE 12/16/2017 46383-GJBLGMP NAIL, 6 OR MORE 03/17/2018 88445-NDQBDBA NAIL, 6 OR MORE 07/14/2018 21649-RUQMMTY NAIL, 6 OR MORE 01/16/2019 65385-REPOFEX NAIL, 6 OR MORE 08/17/2019 72346-MJRBRAB NAIL, 6 OR MORE 11/20/2019 50350-SPJWEPQ NAIL, 6 OR MORE 03/07/2020 72814-BMKPRPP NAIL, 6 OR MORE 06/06/2020 24303-PQDAWEK NAIL, 6 OR MORE 09/12/2020 68032-PVEPKLZ NAIL, 6 OR MORE 12/26/2020 05088-KKZZOVG NAIL, 6 OR MORE 04/07/2021 40322-PGYSWDR NAIL, 6 OR MORE 07/07/2021 70310-OTIOGWE NAIL, 6 OR MORE 10/13/2021 15109-TMJZTGJ NAIL, 6 OR MORE 01/12/2022 56072-KVWSDLL NAIL, 6 OR MORE 06/04/2022 82227-OSLWFON NAIL, 6 OR MORE 08/24/2022 06007-CIGNLXN NAIL, 6 OR MORE 11/19/2022 39784-NHGIBCT NAIL, 6 OR MORE 02/08/2023 54147-GGZHNSA NAIL, 6 OR MORE 05/20/2023 05558-CLCCCUZ NAIL, 6 OR MORE 09/16/2023 92646-QXYKUDT NAIL, 6 OR MORE 01/24/2024 65131-AIJGMRW NAIL, 6 OR MORE 05/01/2024 53865-UBWAAFN NAIL, 6 OR MORE 08/07/2024 04098-Eolexlzm Plate 01/24/2024 66711-Csikjnhd Plate 08/24/2022 76696-Tzqqloqw Plate 10/13/2021 92744-Bzqyaiop Plate 07/07/2021 99235-Awumotpf Plate 11/22/2014 50211-Ckevvdmu Plate 08/23/2014 14860-Ntjnkvat Plate 06/20/2014 46684-Ghhokwzy Plate 03/14/2014 42507-Unfoffiv Plate 12/07/2013 44374-Vbuxnfuc Plate 09/20/2013 52528-Wimexaei Plate 06/21/2013 00975-Gtjsuvse Plate Each Additional 30869-Xwbshtjb Plate Each Additional 10/2021 84116, J0702- INJECT or DRAIN, JOINT/BUR SA 06/06/2020 93205-CXUF SKIN LESIONS, OVER 4 07/08/19 66469-KXPB SKIN LESIONS, OVER 4 04/07/19 91985-PKNE SKIN LESIONS, OVER 4 12/27/19 77771-BBCN SKIN LESIONS, OVER 4 10/14/19 51193-BSXE SKIN LESIONS, OVER 4 01/13/20 46815-FXNK SKIN LESIONS, OVER 4 08/25/19 14655-MLPT SKIN LESIONS, OVER 4 06/05/19 63289-LJTA SKIN LESIONS, OVER 4 09/16/19 24 01683-BQBY SKIN LESIONS, OVER 4 05/20/19 24 56559-SSYZ SKIN LESIONS, OVER 4 02/09/20 81153-HQEB SKIN LESIONS, OVER 4 11/20/19 23 69065-ABHX SKIN LESIONS, OVER 4 01/24/20 24 72524-EMGQ SKIN LESIONS, OVER 4 05/02/19 11911-MHRP SKIN LESIONS, OVER 4 08/08/19 98126-WRPR SKIN LESIONS, 2 TO 4 06/07/19 21 23763-OPEP SKIN LESIONS, 2 TO 4 09/13/19 21 48303-YNEB SKIN LESIONS, 2 TO 4 03/07/19 21 06360-MHEA SKIN LESIONS, 2 TO 4 11/20/19 20 95416-FYKL SKIN LESIONS, 2 TO 4 08/17/19 20 89859-AGDL SKIN LESIONS, 2 TO 4 01/17/20 19 62965-QVYR SKIN LESIONS, 2 TO 4 07/15/19 19 50798-ZNSQ SKIN LESIONS, 2 TO 4 03/17/19 19 04132-KRVC SKIN LESIONS, 2 TO 4 12/17/19 18 44846-IAPT SKIN LESIONS, 2 TO 4 09/17/19 18 63094-TFEA SKIN LESIONS, 2 TO 4 01/12/20 17 27914-BXJP SKIN LESIONS, 2 TO 4 04/12/19 18 06764-ZVAP SKIN LESIONS, 2 TO 4 06/22/19 14 61501-VWXI SKIN LESIONS, 2 TO 4 09/21/19 14 11772-KUDG SKIN LESIONS, 2 TO 4 12/08/19 14 07328-YVEO SKIN LESIONS, 2 TO 4 03/23/19 14 99784-APAU SKIN LESIONS, 2 TO 4 10/04/19 13 84875-ANFP SKIN LESIONS, 2 TO 4 07/12/19 13 14497-OTFO SKIN LESIONS, 2 TO 4 03/14/19 15 27380-HJAB SKIN LESIONS, 2 TO 4 06/21/19 15 26553-OKBA SKIN LESION 05/21/2016 35951-WJHT SKIN LESION 10/05/2016 Next Appt Details Provider Name:Matilda Gonzalez , 11/06/2024 01:30:00 PM, [address] [place], [address], Insurance Providers Payer Name Payer Address Payer Phone Subscriber Number Group Number Insured Name Patient Relationship to Insured Coverage Start Date Coverage End Date Medicare National Govt Svcs Inc [address] [place] [address] [id number] FranciscawvMatty penn Self - patient is the insured Medical (General) History Medical History History ICD Code anxiety depression diabetic headaches/migraines high blood pressure psychiatric disorder reflux chicken pox Surgical History Surgery Date(Month/Year) Hospitalization History Reason Date(Month/Year) bad hip [facility] 10/31/2023 [facility]- pt cant remember overnight sleep study 12/2014
--- OUTSIDE RECORDS SUMMARY | 2024-10-25 11:55 | XMS_ITS | Clinical Summary ---
Author Organization [facility] Address [address] [facility] [address] [place] [address] Phone Care Team Providers Care Technology Services Manager Name Role Phone Rowena Cedeno MD Primary Care Provider Bruce Ye MD Unavailable + [phone] Raymundo Adams MD Unavailable + [phone] Ishmael Beckwith MD Unavailable [phone] Matilda Gonzalez DPM Unavailable [phone] Paxton Nance DDS Unavailable [phone] Efraín Lopez DPM Unavailable Renee vailable Allergies [...] the skin 2 (two) times a day. 4 Active ferrous furamate 324 mg (106 mg elemental) Tab Take 324 mg by mouth daily. 4 Active ALCOHOL PREP PADS PadM Apply 1 each topically. 4 Active insulin degludec U-100 (TRESIBA) injection penIndications:T ype 2 diabetes mellitus with stage 4 chronic kidney disease, with long-term current use of insulin,Type 2 diabetes mellitus with hyperglycemia, with long-term current use of insulin Inject 40 Units under the skin nightly at bedtime. 45 mL 1 5 Active semaglutide (OZEMPIC) 1 mg/dose (4 mg/3 mL) subcutaneous injection penIndications:T ype 2 diabetes mellitus with stage 4 chronic kidney disease, with long-term current use of insulin,Type 2 diabetes mellitus with hyperglycemia, with long-term current use of insulin Inject 1 mg under the skin once a week. 3 mL 5 Active insulin lispro (HUMALOG KWIKPEN INSULIN) 100 [...] 351-400; 16u; >400 18u 15 mL 1 5 Active insulin degludec U-100 (TRESIBA) injection penIndications:T ype 2 diabetes mellitus with stage 4 chronic kidney disease, with long-term current use of insulin,Type 2 diabetes mellitus with hyperglycemia, with long-term current use of insulin Inject 45 Units under the skin nightly at bedtime. 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 The patient has current severe hypoglycemia. [...] Description 10/04/2024 1:20 PM EDT Office Visit [facility] [address] [place] [address] [place] [address] Efraín Bhatia, DO Type 2 diabetes mellitus with stage 4 chronic kidney disease, with long-term current use of insulin (Primary Dx); Type 2 diabetes mellitus with hyperglycemia, with long-term current use of insulin 09/20/2024 Refill [facility] [address] [place] [address] Lyndon, Efraín, DO Medication Refill from Last 3 Months Family History Medical History Relation Comments Diabetes mellitus Father Diabetes mellitus Paternal Grandfather Diabetes mellitus Paternal Grandmother Diabetes mellitus Paternal Great-Grandmother Diabetes mellitus Sister Relation Status Comments Father Alive Mother Paternal Grandfather Paternal Grandmother Paternal Great-Grandmother Sister Alive Social History Tobacco Use Types Packs/Day Years Used Date Smoking Tobacco: Every Day Cigarettes 2 37.6 Started: 03/31/1987 Smokeless Tobacco: Never Tobacco Cessation:Ready [...] 1:20 PM EST Office Visit [facility] [address] [place] [address] Efraín Bhatia DO [address] [place] [address] Health Maintenance Due Date Last Done Comments ABSOLUTE NEUTROPHIL COUNT (ANC) 1979 Adult Td,Tdap Booster 1979 DEPRESSION SCREENING 1991 HEPATITIS C SCREENING 1997 HIV ONE-TIME SCREENING (18-65 YEARS) 1997 PNEUMOCOCCAL VACCINES (0-49 years) (1 of 2 - PCV) 1998 DIABETIC EYE EXAM 04/05/2023 COVID-19 VACCINE ( - 2023- season) 2023 COLOGUARD 02/16/2024 COLONOSCOPY 02/16/2024 COLORECTAL [...] EDT) SODIUM 134 133 - 146 mmol/L [facility] POTASSIUM 4.9 3.3 - 5.1 mmol/L [facility] Comment:Specimen slightly he molyzed, result may be falsely elevated. CHLORIDE 102 96 - 108 mmol/L [facility] CO2 22 21 - 35 mmol/L [facility] GLUCOSE 188(H) 70 - 99 mg/dL [facility] BUN 36(H) 6 - 19 mg/dL [facility] CREATININE 2.10(H) 0.5 - 1.5 mg/dL [facility] CALCIUM 9.9 8.4 - 10.3 mg/dL [facility] PHOSPHORUS 3.7 2.7 - 4.5 mg/dL [facility] ALBUMIN 4.0 3.9 - 4.8 g/dL [facility] EGFR 39(L) >59 mL/min/1.7 3m2 [facility] Comment:Estimated glomerular filtration rate calculated using the CKD-EPI refit equation. ANION GAP 15 10 - 20 mmol/L [facility] Blood 06/15/2024 8:46 AM EDT 06/15/2024 8:48 AM EDT Efraín Bhatia DO LAB BLOOD ORDERABLES Final Resul t [facility] [address] [place] [address] from Last 3 Months or Most Recently Relevant to Health Maintenance [facility] [place] B Member Subscriber Plan / Payer ( fective 1999-Present) Name:Matty Mcgee Member ID:[id number] Relation to Subscriber:Self Name:Matty Mcgee Subscriber ID:[id number] Payer ID:[id number] Group ID:Not on file Type:Medicare Address: [place] [phone] [place] B Care Teams Technology Services Manager Relationship Specialty Start Date End Date Rowena Cedeno MD [address] [place] [address] [place] [address] PCP - General Internal Medicine 02/24/23 Bruce Ye MD [address] [place] [address] Nephrology 04/05/23 Raymundo Adams MD [address] [place] [address] Family Medicine 04/05/23 Ishmael Beckwith MD [address] [place] [address] Dr [address] [address] [email or web address] 04/05/23 Matilda Gonzalez DPM [address] [place] [address] Podiatry 04/05/23 Paxton Nance DDS [address] [place] [address] 04/05/23 Efraín Lopez DPM Podiatry 04/05/23 Additional Source Comments The information contained in this document represents components of the legal health record. It is not the complete legal health record.[facility]
[2024-10-25 13:18] LABS: MANUAL DIFF FLAG NO
[2024-10-25 14:06] LABS: Hematocrit 47.5 % (42.0-52.0); Hemoglobin 16.1 g/dl (14.0-18.0); Imm Gran Abs Auto 0.02 X10*3/uL (0.00-0.03); Imm Gran Pct Auto 0.3 % (0.0-0.4); Lymphocytes Absolute Auto 1.8 X10*3/uL (1.2-4.9); Mean Corpuscular HGB Conc 33.9 g/dl (31.0-36.0); Mean Corpuscular Hemoglobin 28.2 pg (27.0-33.0); Mean Corpuscular Volume 83.2 fL (80.0-98.0); NRBC Abs Auto 0.000 X10*3/uL (0.0-0.012); NRBC Pct Auto 0.0 /100WBC (0.0-0.2); Platelet Count 207 X10*3/uL (160-400); Red Blood Count 5.71 X10*6/uL (4.60-5.80); White Blood Count 6.7 X10*3/uL (4.8-10.8)
== END 2024-10-25 10:59 | disposition home or self-care (01) ==
LOC: HO.HMGCLR 10:58
PROVIDERS: PCP Internal Medicine
DX: Z79.899 Other long term (current) drug therapy (principal)
CPT/HCPCS: 36415; 85025

== ENCOUNTER 2024-11-16 09:43 | Emergency (ER) | payer MEDICARE, MEDICAID, SELFPAY ==
--- OUTSIDE RECORDS SUMMARY | 2023-12-27 07:15 | XMS_ITS ---
Author Organization [facility] Address [address] [place] [address] Care Team Providers Care Supply Person Name Role Phone Pao ZHANG, Rowena Garrido Primary Care Provider Un available Matilda Gonzalez Unavailable [phone] Encounters Encounter Location Date Provider Diagnosis [address] [address] 12/27/2023 Matilda Carlos Plan Of Treatment Next Appt Details Provider Name:Matilda Gonzalez , 01/18/2025 02:15:00 PM, [address] [place] [address], [address], Progress Notes * Matty MCGEEDOB:[birth year] (44 yo M)Acc No.[id number]:12/27/2023 Progress Note Patient: Benjamin PASCALBRITANYSurjit ANDRADEto Provider: Jacky Gonzalez DPM :1980 A ge:43 Y S ex:Male Date:12/27/2023 [facility] [place] Pcp:Antonella Swan Subjective: * Chief Complaints: * [...] Date: 1 Generated for Rukhsana melton/Sylvia/Hans on: 0 11/16/2024 11:54 AM EDT
--- NOTE | 2024-11-16 09:49 | ED.GENADULT ---
HPI - General Adult General Chief complaint: Psychiatric Symptoms Stated complaint: abscess on mouth, s12 Time Seen by Provider: 11/16/24 09:48 Source: patient and EMS Mode of arrival: EMS Limitations: no limitations History of Present Illness ED Provider: Zhanna Lowry PA-C HPI narrative: Patient is a 44 year old assigned male at with a history of DM, CKD, schizophrenia, and diabetes presenting to the emergency department today on a section 12 for a right sided mouth lesion. Patient's section 12, filled out by [facility], states that the patient has a right sided oral lesion that needs to be biopsied and he is refusing to do that so they sectioned him to come to the ER. Patient denies any thoughts of hurting himself, thoughts of hurting others, or any complaints at this time. Patient states that he will get his right mouth lesion biopsied but he doesn't need anything right now. Related Data Home Medications ?Medication ?Instructions ?Recorded ?Confirmed haloperidol 5 mg tablet 5 mg PO BID 04/03/20 10/05/24 acetaminophen 500 mg tablet 500 mg PO Q12H PRN Pain 10/21/22 10/05/24 (Tylenol Extra Strength) albuterol sulfate 90 mcg/actuation 2 puff inhalation Q6H PRN for 02/01/23 10/05/24 aerosol inhaler wheezing semaglutide 1 mg/dose (4 mg/3 mL) 1 mg subcut TH@0900 09/14/23 10/05/24 subcutaneous pen injector (Ozempic) hydroxyzine HCl 25 mg tablet 25 mg PO DAILY 12/28/23 10/05/24 lorazepam 1 mg tablet 1 mg PO DAILY PRN Anxiety 12/28/23 10/05/24 clozapine 200 mg tablet 200 mg PO BEDTIME 05/01/24 10/05/24 insulin lispro-aabc 100 unit/mL 1 sliding scale dose subcut 08/31/24 10/05/24 subcutaneous pen (Lyumjev Felix USEASDIRECTD U-100 Insulin) omega-3 fatty acids 1,000 mg 2,000 mg PO BID 08/31/24 10/05/24 capsule insulin degludec 100 unit/mL 40 unit subcut DAILY 10/05/24 10/05/24 subcutaneous solution (Tresiba U-100 Insulin) Previous Rx's ?Medication ?Instructions ?Recorded fluticasone propionate 50 1 spray intranasal BEDTIME 30 days 01/28/23 mcg/actuation nasal #16 grams spray,suspension (Flonase Allergy Relief) flash glucose scanning reader #1 ea 02/01/23 (FreeStyle Maria D 2 [place]) flash glucose sensor (FreeStyle #1 ea 02/01/23 Maria D 2 Sensor kit) pen needle, diabetic 33 gauge x #100 ea 11/22/2305/14 (Comfort EZ Pen Dennis) umeclidinium 62.5 mcg-vilanterol 1 ea PO DAILY #60 ea 12/27/23 25 mcg/actuation powdr for inhalation (Anoro Ellipta) Extra depth orthopedic shoes (1 #1 ea 07/03/24 pair) with customized heat molded Multi- density Innersoles (3 pairs) fenofibrate 160 mg tablet 160 mg PO DAILY #90 tabs 07/18/24 empagliflozin 25 mg tablet 25 mg PO DAILY #30 tabs 07/28/24 omeprazole 20 mg capsule,delayed 20 mg PO BID #180 caps 08/03/24 release sennosides 8.6 mg-docusate sodium 1 tab-cap PO BEDTIME #30 tabs 10/05/24 50 mg tablet (Senna-S) losartan 25 mg tablet 25 mg PO DAILY 3 months #90 tabs 10/20/24 rosuvastatin 5 mg tablet 5 mg PO DAILY #90 tabs 11/07/24 Allergies Allergy/AdvReac Type Severity Reaction Status Date / Time No Known Allergies Allergy Verified 11/16/24 09:55 Review of Systems Constitutional: Constitutional: Reports as per HPI Eyes: Eyes: Reports as per HPI ENT: Reports as per HPI Cardiovascular: Cardiovascular: Reports as per HPI Respiratory: Respiratory: Reports as per HPI Gastrointestinal: Gastrointestinal: Reports as per HPI Genitourinary: Genitourinary: Reports as per HPI Musculoskeletal: Musculoskeletal: Reports as per HPI Integumentary/Breasts: Skin/Breast: Reports as per HPI Neurologic: Reports as per HPI Psychiatric: Psychiatric: Reports as per HPI Endocrine: Endocrine: Reports as per HPI Hematologic/Lymphatic: Hematologic/Lymphatic: Reports as per HPI Allergic/Immunologic: Allergic/Immunologic: Reports as per HPI [facility] Past Medical History Attestation statement: The following information was validated with the patient. Source: old records reviewed and nursing notes reviewed Medical History Acquired hammer toe deformity of lesser toe of both feet Pre-ulcerative calluses CKD (chronic kidney disease) stage 3, GFR 30-59 ml/min Tinea unguium Type 2 diabetes mellitus with diabetic polyneuropathy CKD (chronic kidney disease) stage 4, GFR 15-29 ml/min Type 2 diabetes mellitus with complication, with long-term current use of insulin Uncontrolled diabetes mellitus with hyperglycemia Hypercalcemia Noncompliance with medication regimen Rash and nonspecific skin eruption Tremor Vitamin D deficiency Mixed dyslipidemia Restrictive airway disease Type 2 diabetes mellitus with other diabetic kidney complication Solitary pulmonary nodule on lung CT Smoker unmotivated to quit Obesity (BMI 30-39.9) Schizoaffective disorder Essential hypertension Surgical History No pertinent past surgical history Family History Family History Father Unknown family medical history Mother Unknown family medical history Brother No problems noted. Sister No problems noted. Social History Social History Housing: Other [facility] Other[facility] Alcohol intake: never Patient Tobacco Use Status: Current everyday Tobacco user Cigarette Packs Per Day: 2 e-Cigarette/Vaping Use: Never Used Substance Use Type: Marijuana Advance Directives: Yes Advance Directives on File: Yes Advance Directives Date on File: 12/06/23 Do you have a plan to hurt others: No Plan service: No Current occupational status: disabled Cognitive needs: No Hearing needs: No Vision needs: Yes Physical Exam ED Vital Signs: Vital Signs - 24 hr 11/16/24 09:53 11/16/24 10:14 Temperature 98.4 F Pulse Rate 103 H 96 Respiratory Rate 18 17 Blood Pressure 152/94 H Pulse Oximetry 97 98 Oxygen Delivery Method Room Air Room Air BMI result Body Mass Index 33.1 Const General: cooperative, no acute distress, alert and awake Nutritional Appearance: well nourished Orientation/consciousness: patient oriented x3 HENMT Head: Yes normal to inspection and Yes atraumatic Ears: hearing grossly normal bilaterally and external ears normal General nose exam: Normal external nose present, no nasal discharge noted and no epistaxis Face and sinus: Yes normal facial exam, No abrasion and No laceration Mouth: no drooling and no muffled voice Mouth/tongue images:  1. Discolored / white-jacob lesion - no swelling, no erythema, no fluctuance Eyes General: appearance normal, both eyes and all related structures Periorbital: periorbital findings normal Eyelids: Yes eyelids normal Conjunctivae: conjunctivae normal Pupils: Equal, round and reactive pupils present EOM: EOMs intact bilaterally Neck Neck: Yes normal visual inspection and Yes full ROM Resp Effort & Inspection: normal respiratory effort and able to speak in complete sentences Neuro General: patient oriented x3, moves all extremities and CN's II-XI intact bilaterally Cranial nerves: Yes Equal, round and reactive pupils present Cognition (Neuro): normal cognition Extrem General: Yes normal to inspection, Yes full ROM and Yes capillary refill normal Psych Appearance: grossly normal Mental Status: mental status grossly normal Affect: normal affect Attitude: cooperative Thought process: Normal thought process present Thought content: Normal thought content present Insight: Good insight present (Psych) Medical Decision Making Medical Decision Making MDM Narrative: Patient is a 44 year old assigned male at with a history of DM, CKD, schizophrenia, and diabetes presenting to the emergency department today on a section 12 for a right sided mouth lesion Patient's physical exam was as noted in the physical exam portion of this note and consistent with leukoplakia. No evidence of abscess, no evidence of infection. The patient is alert, oriented, and completely appropriate. Patient is not responding to internal stimuli, not homicidal, not suicidal. Patient has the right to refuse follow up for this oral lesion and there is no emergent issue that needs addressing at this time. I explained my physical exam findings to the patient. I answered all questions asked by the patient. Patient stated that he would follow up on an outpatient basis for this lesion. I stressed the importance of the patient taking his medication as directed (either prescribed or as the over the counter packaging recommends). I stressed the importance of the patient following up with his primary care provider, a dentist, and if necessary - an OMFS specialist. I stressed the importance of the patient returning to the emergency department immediately if he were to develop any dizziness, shortness of breath, difficulty breathing, chest pain, blurry vision, loss of vision, nausea, vomiting, abdominal pain, fever, chills, back pain, or any other complaints. Patient verbalized agreement and understanding with this treatment plan and discharge. Differential Diagnosis Differential Diagnoses: The differential diagnosis associated with the presentation includes Oral lesion Leukoplakia Admission/Observation Consideration of admission/observation: Escalation of care including admission/observation considered Patient would have been admitted to the hospital had his clinical presentation warranted hospital admission. Independent Historian Clinical information obtained from an independent historian. History obtained from or confirmed by: EMS (EMS provided additional history and confirmed the history provided by the patient. ) Tests considered The following testing was considered but not selected: I considered obtaining a CBC, CMP, ESR, and CRP however, the patient's current clinical presentation did not warrant this. Chronic Conditions Patient?s care impacted by: Diabetes Discharge Plan Discharge Clinical Impression: Oral lesion Patient Disposition: Home, Self-Care Additional Instructions: Your right sided oral lesion needs to be examined further by an OMFS specialist or a dentist however, there is no emergent process that needs treatment at this time. IF you are prescribed home medications and/or you are taking over the counter medications at home - it is very important you continue to do so as prescribed / directed unless told otherwise. Follow up with a primary care provider. Return to the emergency department immediately if your symptoms worsen or if you develop any numbness, tingling, dizziness, shortness of breath, difficulty breathing, chest pain, blurry vision, loss of vision, nausea, vomiting, abdominal pain, fever, chills, back pain, or any other complaints. Call or visit any of the clinics below to establish with a dentist: [facility] [address] [place] [address] [address] [place] [address] OR [address] [facility] [address] [place] [address] [address] [place] [address] [address] [facility] [address] [place] [address] [address] [facility] [address] [place] [address] [address] [facility] [address] [place] [address] [address] [facility] [address] [place] [address] [address] [facility] [address] [place] [address] [address] [place] [address] [address] [place] [address] [address] [facility] [address] [place] [address] [facility] [address] [place] [address] [facility] [address] [facility] [address] [place] [address] [facility] [address] [place] [address] [facility] [address] [place] [address] [facility] [address] [place] [address] [facility] [address] [facility], [address] [facility] [address] [place] [address] [address] [place] [address] [address] [place] [address] (One number for all locations) [facility] [address] [place] [address] [facility] [address] [place] [address] [facility] [address] [place] [address] If you do not have a primary care provider - call any of the below numbers to establish and follow up with a primary care provider. [facility] Primary Care ([place]) [phone] [address] [facility], [address] [facility] Primary Care ([address] [place]) [phone] [facility], [address] [facility] Primary Care ([address] [place]) [phone] [address] [facility], [address] [facility], [address] [facility] Primary Care ([place]) [phone] [place] [address], [address] [facility], [address] [facility] Family Medicine [phone] [place] [address], [id number] Please see the information below about our Patient Portal. If you are not yet enrolled in the [facility] Patient Portal, you will receive an enrollment email invitation following your visit to any [facility] care setting. You may also self-enroll in the Patient Portal by visiting our website: [email or web address] The following information is required to access the Patient Portal: - Your [facility] Medical Record Number - Your personal home email address (must match what is in your electronic medical record, Registration staff can assist with this) - Name - Date of Capabilities of the Patient Portal: - Message some providers - View upcoming appointments - Access your health summary, medical history, and visit history - View current conditions and allergies - View procedure and lab results - View your medications, including guidelines, side effects, and precautions - Complete pre-appointment questionnaires requested by your provider - Ready summary reports of your office visits and procedures To access the Patient Portal Mobile Eduin, follow these directions: - Search [facility] in the Eduin Store or Qmerce Store - Download the Eduin - Search for [facility] - Enter your login/password Prescriptions: No Action (DME) pen needle, diabetic [Comfort EZ Pen Dennis] 33 gauge x 3/16 needle See Rx Instructions .Route Qty: 100 4RF Rx Instructions: inject insulin twice daily Anoro Ellipta 62.5-25 mcg/actuation blister with device 1 ea PO DAILY Qty: 60 5RF (DME) Extra depth orthopedic shoes (1 pair) with customized heat molded Multi- density Innersoles (3 pairs) See Rx Instructions .Route .MEDSUPPLY Qty: 1 0RF Rx Instructions: As directed fenofibrate 160 mg tablet 160 mg PO DAILY Qty: 90 1RF empagliflozin 25 mg tablet 25 mg PO DAILY Qty: 30 5RF Rx Instructions: Take 1 tablet 1 hour before breakfast omeprazole 20 mg capsule,delayed release(DR/EC) 20 mg PO BID Qty: 180 2RF insulin degludec [Tresiba U-100 Insulin] 100 unit/mL solution 40 unit subcut DAILY losartan 25 mg tablet 25 mg PO DAILY 90 Days Qty: 90 2RF rosuvastatin 5 mg tablet 5 mg PO DAILY Qty: 90 1RF haloperidol 5 mg tablet 5 mg PO BID clozapine 200 mg tablet 200 mg PO BEDTIME acetaminophen [Tylenol Extra Strength] 500 mg tablet 500 mg PO Q12H PRN (Reason: Pain) Ozempic 1 mg/dose (4 mg/3 mL) pen injector 1 mg subcut TH@0900 albuterol sulfate 90 mcg/actuation HFA aerosol inhaler 2 puff inhalation Q6H PRN (Reason: for wheezing) (DME) FreeStyle Maria D 2 Sensor Kit See Rx Instructions .Route Qty: 1 5RF Rx Instructions: As directed (DME) FreeStyle Maria D 2 [place] Misc See Rx Instructions .Route Qty: 1 5RF Rx Instructions: As directed sennosides-docusate sodium [Senna-S] 8.6-50 mg tablet 1 tab-cap PO BEDTIME Qty: 30 3RF omega-3 fatty acids 1,000 mg capsule 2,000 mg PO BID Lyumjev KwikPen U-100 Insulin 100 unit/mL insulin pen 1 sliding scale dose subcut USEASDIRECTD fluticasone propionate [Flonase Allergy Relief] 50 mcg/actuation spray,suspension 1 spray intranasal BEDTIME 30 Days Qty: 16 6RF Rx Instructions: administer into each nostril lorazepam 1 mg tablet 1 mg PO DAILY PRN (Reason: Anxiety) hydroxyzine HCl 25 mg tablet 25 mg PO DAILY Interventions: Crowley-Suicide Risk Severity Scale Last Done: 11/16/24 10:15 Print Language: Malaysian
[2024-11-16 09:50] VITALS: BP 159/96; PULSE 110; O2SAT 100
[2024-11-16 09:53] VITALS: BP 152/94; PULSE 103; RESP 18; TEMP 36.9; O2SAT 97; BMI 33.1
[2024-11-16 10:14] VITALS: PULSE 96; RESP 17; O2SAT 98
--- NOTE | 2024-11-16 10:26 | PC.NURSE ---
Addendum entered by Davida Recio RN 11/16/24 10:32: Call back received from Charla. Will contact Pts worker for pick, if not available Charla will come for Pt. Original Note: Pt cleared for d/c at this time. Call placed to Manager Of Maintenance Deedee @ [phone] who reports Pt sent to ED for concerns of infection and unwillingness to receive Tx. Deedee informed Pt seen by ED provider and noted to have oral lesion. She was advised that biopsies for this is not performed in ED and Pt will require OP follow up with OMFS. Deedee reports Electrical Assembly Supervisor Charla is to be contacted for transportation back to [facility] location. Charla can be reached @ [phone]. Call placed to Charla at above noted contact number. No answer at this time. Voicemail left outlining Pt is up for d/c and in need of transportation. Call back number provided. Awaiting call back.
[2024-11-16 10:59] VITALS: BP 152/78; PULSE 96; RESP 17; TEMP 36.8; O2SAT 98
--- OUTSIDE RECORDS SUMMARY | 2024-11-16 11:55 | XMS_ITS | Patient Health Record ---
Author Organization [facility] Address [address] [facility] [place] [address] Care Team Providers Care Cafe Attendant Name Role Phone Pao ZHANG, Rowena Garrido Primary Care Provider Un available Black, Matilda Unavailable [phone] Allergies No Known Allergies Results Component Value Reference Range Notes HEMOGLOBIN A1C (GLYCOHEMOGLO BIN) Reviewed date:03/11/2024 11:38:18 AM Interpretation: Performing Lab: Notes/Report: HEMOGLOBIN A1C % (HH) 8.2 HEMOGLOBIN A1C (GLYCOHEMOGLO BIN) Reviewed date:11/06/2024 01:33:18 PM Interpretation: Performing Lab: Notes/Report: HEMOGLOBIN A1C % (HH) 8.2 Reason For Referral No Information Medications Medication SIG (Take, Route, Frequency, Duration) Notes Start Date End Date Status Cozaar 25 MG 1 tablet Orally Once a day Active Clozaril 200 MG 1 tablet Orally Once a day Active Ativan 1 MG as directed Active Haldol Active Albuterol Sulfate Ac tive Hydrocortisone 2.5 % as directed Externa lly to feet Twice a day; Duration: 30 days Not-Taking Ozempic Active Vascepa Not-Taking Lantus Not-Taking Benadryl Not-Taking Tylenol Not-Taking Extra Depth Orthopedic Shoes (1 Pair) with Customized Heat Molded Multidensity Innersoles (3 Pair) as directed Dx: NIDDM/Polyneuropathy (E11.42), Hammertoe Foot Deformity (M20.41,M20.42), Preulcerative Skin Lesion(s) (L85.1 05/01/2024 Active Fenofibrate 160 MG as directed Active Extra Depth Orthopedic Shoes (1 Pair) with Customized Heat Molded Multidensity Innersoles (3 Pair) as directed Dx: IDDM/Polyneuropathy (E10.42), Hammertoe Foot Deformity (M20.41,M20.42), Preulcerative Skin Lesion(s) (L85.1) 03/31/2022 Active Jardiance 25 MG 1 tablet Once a day Active metFORMIN HCl Not-Ta hola Tricor 145 MG 1 tablet Orally Once a day; Duration: 30 day(s) Not-Taking Invokana Not-Taking Tresiba 100 UNIT/ML as directed Subcutaneous Active HumuLIN 70/30 (70-30) 100 UNIT/ML as directed Subcutaneous Not-Taking Anoro Ellipta 62.5-25 MCG/ACT 1 puff Inhalation Once a day Active Gemfibrozil 600 MG as directed Orally Twice a day Not-Taking Flonase Active Glucophage 1000 MG 1 tablet with meals Orally Twice a day; Duration: 30 day(s) Not-Taking PriLOSEC Not-Taking Vitamin D Not-Taking Colace 100 MG 1 capsule as needed Orally Once a day; Duration: 30 day(s) Active traZODone HCl Active hydrOXYzine HCl 25 MG as directed Orally Active Losartan Potassium 25 MG 1 tablet Orally Once a day Not-Taking [place] 3 Active Cleocin-T 1 % 1 application to affected area Externally Twice a day Not-Takin g Trulicity Active PriLOSEC 20 MG 1 capsule Orally Onc e a day; Duration: 30 day(s) Not-Taking Omeprazole 20 MG 1 capsule 30 minutes before morning meal Orally Once a day Active Cody Carbonate 600 MG as directed Ora lly Twice a day Not-Taking Rosuvastatin Calcium 5 MG 1 tablet Orall y Once a day Active Fish Oil Not-Taking Immunizations Vaccine Route Administration Date Status [...] Problem Acquired hammer toe of right foot (4253282670459167 ) Other hammer toe(s) (acquired), right foot (M20.41) Active confirmed Problem Acquired hammer toe of left foot (9611185557131188 ) Other hammer toe(s) (acquired), left foot (M20.42) Active confirmed Problem Polyneuropathy due to diabetes mellitus type I (519322224) Type 1 diabetes mellitus with diabetic polyneuropathy (E10.42) Active confirmed Vital Signs Blood pressure diastolic 80 mm Hg 11/06/2024 Height 5ft8in in 11/06/2024 Blood pressure systolic 139 mm Hg 11/06/2024 Weight 216 lbs 11/06/2024 BMI 32.84 kg/m2 11/06/2024 Procedures Procedure Date Ordered Date Performed Result Body Sit e 77306-KXVSJUQ NAIL, 6 OR MORE 01/24/2024 N/A 28681-Puvlpwaj Plate 01/24/2024 N/A 96353-RKZM SKIN LESIONS, OVER 4 01/24/2024 N/A 58668-SVFXWSH NAIL, 6 OR MORE 05/01/2024 N/A 48972-TAXZ SKIN LESIONS, OVER 4 05/01/2024 N/A 49958-XNTLMCY NAIL, 6 OR MORE 08/07/2024 N/A 76095-ZBET SKIN LESIONS, OVER 4 08/07/2024 N/A 49477-TTFOGPQ NAIL, 6 OR MORE 11/06/2024 N/A 44399-HPWB SKIN LESIONS, OVER 4 11/06/2024 N/A Encounters Encounter Location Date Provider Diagnosis [address] [address] 01/24/2024 Matildajuan Gonzalez Type 1 diabetes mellitus with diabetic polyneuropathy E10.42 ; Tinea unguium B35.1 and Ingrown nail L60.[address] [address] 05/01/2024 Matilda Black Type 1 diabetes mellitus with diabetic polyneuropathy E10.42 ; Other hammer toe(s) (acquired), right foot M20.41 ; Tinea unguium B35.1 and Other hammer toe(s) (acquired), left foot M20.[address] [address] 08/07/2024 Matilda Black Other hammer toe(s) (acquired), right foot M20.41 ; Metatarsalgia, left foot M77.42 ; Type 1 diabetes mellitus with diabetic polyneuropathy E10.42 ; Tinea unguium B35.1 ; Other hammer toe(s) (acquired), left foot M20.42 ; Pain in left foot M79.672 ; Pain in left ankle and joints of left foot M25.572 and Bursitis of intermetatarsal bursa of left foot M77.[address] [address] 11/06/2024 Matilda Black Other hammer toe(s) (acquired), right [...] 08/07/2024 Metatarsalgia, left foot (ICD-10 - M77.42) 11/06/2024 Other hammer toe(s) (acquired), right foot (ICD-10 - M20.41) 11/06/2024 Metatarsalgia, left foot (ICD-10 - M77.42) 08/07/2024 Type 1 diabetes mellitus with diabetic polyneuropathy (ICD-10 - E10.42) 05/01/2024 Tinea unguium (ICD-10 - B35.1) 01/24/2024 Tinea unguium (ICD-10 - B35.1) 05/01/2024 Other hammer toe(s) (acquired), left foot (ICD-10 - M20.42) 01/24/2024 Ingrown nail (ICD-10 - L60.0) 08/07/2024 Tinea unguium (ICD-10 - B35.1) 11/06/2024 Type 1 diabetes mellitus with diabetic polyneuropathy (ICD-10 - E10.42) 11/06/2024 Tinea unguium (ICD-10 - B35.1) 08/07/2024 Other hammer toe(s) (acquired), left foot (ICD-10 - M20.42) 11/06/2024 Other hammer toe(s) (acquired), left foot (ICD-10 - M20.42) 08/07/2024 Pain in left foot (ICD-10 - M79.672) 11/06/2024 Pain in left foot (ICD-10 - M79.672) 08/07/2024 Pain in left ankle and joints of left foot (ICD-10 - M25.572) 08/07/2024 Bursitis of intermetatarsal bursa of left foot (ICD-10 - M77.52) 11/06/2024 Pain in left ankle and joints of left foot (ICD-10 - M25.572) 11/06/2024 Bursitis of intermetatarsal bursa of left foot (ICD-10 - M77.52) Plan Of Treatment Pending Test Test Name Order Date 60958-GJJUMTF NAIL, 6 OR MORE 01/07/2012 49152-VZWZGVS NAIL, 6 OR MORE 04/11/2012 49833-PHVXDCG NAIL, 6 OR MORE 07/11/2012 23145-JRNTLDN NAIL, 6 OR MORE 10/03/2012 45918-JYFNCHV NAIL, 6 OR MORE 12/19/2012 53263-NZIHURM NAIL, 6 OR MORE 03/23/2013 43855-SRJTGBD NAIL, 6 OR MORE 06/21/2013 57106-FTRMTRC NAIL, 6 OR MORE 09/20/2013 76599-EGJUWTZ NAIL, 6 OR MORE 12/07/2013 06602-DSKYSUY NAIL, 6 OR MORE 03/14/2014 80470-FSZYYOF NAIL, 6 OR MORE 06/20/2014 54487-BXBCZGZ NAIL, 6 OR MORE 08/23/2014 39266-EFLIHOT NAIL, 6 OR MORE 11/22/2014 01943-JUNNPKF NAIL, 6 OR MORE 02/13/2015 21961-MCNJMCH NAIL, 6 OR MORE 05/15/2015 41048-FQGZOTG NAIL, 6 OR MORE 08/12/2015 09938-UBCUFJI NAIL, 6 OR MORE 11/11/2015 68728-PXBRFTB NAIL, 6 OR MORE 02/19/2016 89166-QBZYZAD NAIL, 6 OR MORE 05/21/2016 16668-ZILADKK NAIL, 6 OR MORE 10/05/2016 45741-TQWBQOR NAIL, 6 OR MORE 01/11/2017 66236-OKLCKNE NAIL, 6 OR MORE 04/12/2017 54214-WLERTCZ NAIL, 6 OR MORE 09/16/2017 74621-HKEPFIP NAIL, 6 OR MORE 12/16/2017 70290-MTTLMNR NAIL, 6 OR MORE 03/17/2018 86086-BRPGMDN NAIL, 6 OR MORE 07/14/2018 66516-YCOZENK NAIL, 6 OR MORE 01/16/2019 53605-DQWBITR NAIL, 6 OR MORE 08/17/2019 18359-AQPTSIJ NAIL, 6 OR MORE 11/20/2019 54718-AOEFCQD NAIL, 6 OR MORE 03/07/2020 39369-XUHBISM NAIL, 6 OR MORE 06/06/2020 49121-LVZOZKO NAIL, 6 OR MORE 09/12/2020 47974-SZOECZQ NAIL, 6 OR MORE 12/26/2020 07336-OGSNBIM NAIL, 6 OR MORE 04/07/2021 00088-VTBVRUX NAIL, 6 OR MORE 07/07/2021 50022-WSIIJFD NAIL, 6 OR MORE 10/13/2021 62330-PPRVJQM NAIL, 6 OR MORE 01/12/2022 48716-YNLSKDJ NAIL, 6 OR MORE 06/04/2022 19475-VPDEJDT NAIL, 6 OR MORE 08/24/2022 89133-TSWRSQI NAIL, 6 OR MORE 11/19/2022 95737-VUSXRSM NAIL, 6 OR MORE 02/08/2023 74142-BUIMGVE NAIL, 6 OR MORE 05/20/2023 88683-GUSVPOU NAIL, 6 OR MORE 09/16/2023 13498-CMDAOQU NAIL, 6 OR MORE 01/24/2024 06112-QSAPKJJ NAIL, 6 OR MORE 05/01/2024 95988-TYFSCDK NAIL, 6 OR MORE 08/07/2024 01838-KDXMDQS NAIL, 6 OR MORE 11/06/2024 61056-Silyirzz Plate 01/24/2024 91494-Zxycuwaj Plate 08/24/2022 08563-Rprgsjsi Plate 10/13/2021 60117-Xynrdbon Plate 07/07/2021 37578-Jsmgeddz Plate 11/22/2014 70628-Adsyqbzo Plate 08/23/2014 75760-Yzkjybjk Plate 06/20/2014 78320-Ksumdpax Plate 03/14/2014 37705-Tvjbtxuz Plate 12/07/2013 12828-Wqeqlxsu Plate 09/20/2013 69776-Aabfvcrd Plate 06/21/2013 81876-Kcylmoxz Plate Each Additional 74790-Kjvcpgbv Plate Each Additional 10/2021 85707, J0702- INJECT or DRAIN, JOINT/BUR SA 06/06/2020 45469-RJUK SKIN LESIONS, OVER 4 07/08/19 22 54251-JXZT SKIN LESIONS, OVER 4 02/07/20 22 75437-WYOT SKIN LESIONS, OVER 4 12/27/19 83674-SLXY SKIN LESIONS, OVER 4 10/14/19 05978-NBLJ SKIN LESIONS, OVER 4 01/13/20 93505-LEGH SKIN LESIONS, OVER 4 08/25/19 75153-UZSX SKIN LESIONS, OVER 4 06/05/19 03984-KPVB SKIN LESIONS, OVER 4 09/16/19 57088-RHGZ SKIN LESIONS, OVER 4 05/20/19 15149-ICLB SKIN LESIONS, OVER 4 02/09/20 95492-MCJR SKIN LESIONS, OVER 4 11/20/19 64618-RXJE SKIN LESIONS, OVER 4 01/24/20 87884-OUID SKIN LESIONS, OVER 4 05/02/19 38452-NPXD SKIN LESIONS, OVER 4 08/08/19 27038-VERJ SKIN LESIONS, OVER 4 11/07/19 55027-ZCJM SKIN LESIONS, 2 TO 4 06/07/19 45771-AJCS SKIN LESIONS, 2 TO 4 09/13/19 07360-DSIG SKIN LESIONS, 2 TO 4 03/07/19 21 36679-PRFN SKIN LESIONS, 2 TO 4 11/20/19 20 63091-GXXI SKIN LESIONS, 2 TO 4 08/17/19 72443-FMSS SKIN LESIONS, 2 TO 4 01/17/20 19 26808-DCOM SKIN LESIONS, 2 TO 4 07/15/19 19 43009-BPPF SKIN LESIONS, 2 TO 4 03/17/19 19 60966-TUGB SKIN LESIONS, 2 TO 4 12/17/19 18 47425-UOEN SKIN LESIONS, 2 TO 4 09/17/19 18 15364-AXJI SKIN LESIONS, 2 TO 4 01/12/20 17 40054-NDTD SKIN LESIONS, 2 TO 4 04/12/19 18 31444-SZQE SKIN LESIONS, 2 TO 4 06/22/19 14 42166-QWDQ SKIN LESIONS, 2 TO 4 09/21/19 14 54138-KLXT SKIN LESIONS, 2 TO 4 12/08/19 14 65798-NLLE SKIN LESIONS, 2 TO 4 03/23/19 14 44018-AHWI SKIN LESIONS, 2 TO 4 10/04/19 13 95614-EOTX SKIN LESIONS, 2 TO 4 07/12/19 13 27608-VXRI SKIN LESIONS, 2 TO 4 03/14/19 15 67512-AIYW SKIN LESIONS, 2 TO 4 06/21/19 15 32475-KDHR SKIN LESION 05/21/2016 84016-UXBC SKIN LESION 10/05/2016 Next Appt Details Provider Name:Matilda Gonzalez , 01/18/2025 02:15:00 PM, [address] [place], [address], Insurance Providers Payer Name Payer Address Payer Phone Subscriber Number Group Number Insured Name Patient Relationship to Insured Coverage Start Date Coverage End Date Medicare National [employer] [address] [place] [address] [id number] FranciscaarMatty penn Self - patient is the insured Medical (General) History Medical History History ICD Code anxiety depression diabetic headaches/migraines high blood pressure psychiatric disorder reflux chicken pox Surgical History Surgery Date(Month/Year) Hospitalization History Reason Date(Month/Year) bad hip [facility] [place] [facility] [place] cant remember overnight sleep study 12/2014
--- OUTSIDE RECORDS SUMMARY | 2024-11-16 11:55 | XMS_ITS | Clinical Summary ---
Author Organization [facility] Address [address] [facility] [address] [place] [address] Phone Care Team Providers Care Electron Gun Assembler Name Role Phone Rowena Cedeno MD Primary Care Provider Bruce Ye MD Unavailable [phone] Raymundo Adams MD Unavailable [phone] Ishmael Beckwith MD Unavailable [phone] Matilda Gonzalez DPM Unavailable [phone] Paxton Nance DDS Unavailable Efraín Lopez DPM Unavailable Renee vailable Allergies No known active allergies Medications haloperidoL (HALDOL) 5 MG tablet Take 5 mg by mouth 2 (two) times a day. And as needed Active albuterol 90 mcg/actuation inhaler Inhale 2 puffs into the lungs every 6 (six) hours as needed for wheezing. Active umeclidinium-sarah nteroL (ANORO ELLIPTA) 62.5-25 mcg/actuation diskus inhaler Inhale [...] 4 Active insulin degludec U-100 (TRESIBA) injection penIndications:Ty pe 2 diabetes mellitus with stage 4 chronic kidney disease, with long-term current use of insulin,Type 2 diabetes mellitus with hyperglycemia, with long-term current use of insulin Inject 40 Units under the skin nightly at bedtime. 45 mL 1 5 Active semaglutide (OZEMPIC) 1 mg/dose (4 mg/3 mL) subcutaneous injection penIndications:Ty pe 2 diabetes mellitus with stage 4 chronic kidney disease, with long-term current use of insulin,Type 2 diabetes mellitus with hyperglycemia, with long-term current use of insulin Inject 1 mg under the skin once a week. 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 The patient has current severe hypoglycemia. [...] PM EDT Office Visit [facility] [address] [place] [address] Efraín Bhatia, Type 2 diabetes mellitus with stage 4 chronic kidney disease, with long-term current use of insulin (Primary Dx); Type 2 diabetes mellitus with hyperglycemia, with long-term current use of insulin 09/20/2024 Refill [facility] [address] [place] [address] Efraín Bhatia DO Medication Refill from Last [...] 1:20 PM EST Office Visit [facility] [address] [place] [address] Efraín Bhatia DO [address] [place] [address] [email or web address] Health Maintenance Due Date Last Done Comments ABSOLUTE NEUTROPHIL COUNT (ANC) 1979 Adult Td,Tdap Booster 1979 DEPRESSION SCREENING 1991 HEPATITIS C SCREENING 1997 HIV ONE-TIME SCREENING (18-65 YEARS) 1997 PNEUMOCOCCAL VACCINES (0-49 years) (1 of 2 - PCV) 1998 DIABETIC EYE EXAM 04/05/2023 COLOGUARD 02/16/2024 COLONOSCOPY 02/16/2024 COLORECTAL CANCER SCREENING 02/16/2024 FIT TEST 02/16/2024 FOBT 02/16/2024 SIGMOIDOSCOPY 02/16/2024 VIRTUAL COLONOSCOPY 02/16/2024 INFLUENZA VACCINE (#1) 2024 COVID-19 VACCINE ( season) 2024 BLOOD PRESSURE 04/06/2025 10/04/2024 HEMOGLOBIN A1C 04/06/2025 [...] EDT) SODIUM 134 133 - 146 mmol/L [facility] POTASSIUM 4.9 3.3 - 5.1 mmol/L [facility] Comment:Specimen slightly he molyzed, result may be falsely elevated. CHLORIDE 102 96 - 108 mmol/L [facility] CO2 22 21 - 35 mmol/L [facility] GLUCOSE 188(H) 70 - 99 mg/dL [facility] BUN 36(H) 6 - 19 mg/dL [facility] CREATININE 2.10(H) 0.5 - 1.5 mg/dL [facility] CALCIUM 9.9 8.4 - 10.3 mg/dL [facility] PHOSPHORUS 3.7 2.7 - 4.5 mg/dL [facility] ALBUMIN 4.0 3.9 - 4.8 g/dL [facility] EGFR 39(L) >59 mL/min/1.7 3m2 [facility] Comment:Estimated glomerular filtration rate calculated using the CKD-EPI refit equation. ANION GAP 15 10 - 20 mmol/L [facility] Blood 06/15/2024 8:46 AM EDT 06/15/2024 8:48 AM EDT us Efraín Bhatia DO LAB BLOOD ORDERABLES Final Resul t [facility] [address] [place] [address] from Last 3 Months or Most Recently Relevant to Health Maintenance Insurance [facility] MEDICARE PART A & [place] [address] [place] PART A & B ([place]) [address] [place] [address] [facility] MEDIC[facility] PART A & B [place] A & B Member Subscriber Plan / Payer (Ef fective 1999-) Name:Matty Mcgee Member ID:[id number] Relation to Subscriber:Self Name:Matty Mcgee Subscriber ID:[id number] Payer ID:[id number] Group ID:Not on file Type:Medicare Address: [facility] [address] [place] [phone] [facility] MEDICARE PART A & B Member Subscriber Plan / Payer (Ef fective 1999-) Name:Matty Mcgee Member ID:[id number] Relation to Subscriber:Self Name:Matty Mcgee Subscriber ID:[id number] Payer ID:[id number] Group ID:Not on file Type:Medicare Address: [facility] [address] [place] [address] [facility] MEDICARE PART A & B Care Teams Electron Gun Assembler Relationship Specialty Start Date End Date Rowena Cedeno MD [address] [facility] [place] [address] PCP - General Internal Medicine 02/24/23 Bruce Ye MD [address] [place] [address] Nephrology 04/05/23 Raymundo Adams MD [address] [place] [address] [place] [address] Family Medicine 04/05/23 Ishmael Beckwith MD [address] [place] [address] [address] [address] [email or web address] Nephrology 04/05/23 Matilda Gonzalez DPM [address] [place] [address] Podiatry 04/05/23 Paxton Nance DDS [address] [place] [address] 04/05/23 Efraín Lopez DPM Podiatry 04/05/23 Additional Source Comments The information contained in this document represents components of the legal health record. It is not the complete legal health record.[facility]
== END 2024-11-16 11:00 | disposition home or self-care (01) ==
PROVIDERS: Emergency Provider Emergency Medicine; PCP Internal Medicine
DX: K13.70 Unspecified lesions of oral mucosa (principal); E11.9 Type 2 diabetes mellitus without complications; Z79.4 Long term (current) use of insulin; Z79.899 Other long term (current) drug therapy
CPT/HCPCS: 99283; 99284

== ENCOUNTER 2024-11-29 13:21 | Outpatient (REF) | payer MEDICARE, MEDICAID, SELFPAY ==
--- OUTSIDE RECORDS SUMMARY | 2024-11-29 14:33 | XMS_ITS | Clinical Summary ---
Author Organization [facility] Address [address] [facility] [address] [place] [address] Phone Care Team Providers Care Union Organizer Name Role Phone Rowena Cedeno MD Primary Care Provider Bruce Ye MD Unavailable [phone] Raymundo Adams MD Unavailable [phone] Ishmael Beckwith MD Unavailable [phone] Matilda Gonzalez DPM Unavailable Paxton Nance DDS Unavailable [phone] Efraín Lopez DPM Unavailable Renee vailable [...] bedtime. 45 mL 1 10/05/19 25 Active insulin lispro (HUMALOG KWIKPEN [...] 18u 15 mL 1 10/05/19 25 Active OZEMPIC 1 mg/dose (4 mg/3 mL) subcutaneous injection penIndications:T ype 2 diabetes mellitus with stage 4 chronic kidney disease, with long-term current use of insulin,Type 2 diabetes mellitus with hyperglycemia, with long-term current use of insulin Inject 1 mg under the skin once a week. 3 mL 11/23/19 25 Active semaglutide (OZEMPIC) 1 mg/dose (4 mg/3 mL) subcutaneous injection penIndications:T ype 2 diabetes mellitus with stage 4 chronic kidney disease, with long-term current use of insulin,Type 2 diabetes mellitus with hyperglycemia, with long-term current use of insulin Inject 1 mg under the skin once a week. 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 The patient has current severe hypoglycemia. [...] Encounters Date Type Department Care Team Description 11/21/2024 Refill [facility] [address] [place] [address] [place] [address] Efraín Bhatia DO Medication Refill 10/04/2024 1:20 PM EDT Office Visit [facility] [address] [place] [address] [place] [address] Efraín Bhatia, Type 2 diabetes mellitus with stage 4 chronic kidney disease, with long-term current use of insulin (Primary Dx); Type 2 diabetes mellitus with hyperglycemia, with long-term current use of insulin 09/20/2024 Refill [facility] [address] [place] [address] [place] [address] Efraín Bhatia DO Medication Refill from Last 3 Months Family History Medical History Relation Comments Diabetes mellitus Father Diabetes mellitus Paternal Grandfather Diabetes mellitus Paternal Grandmother Diabetes mellitus Paternal Great-Grandmother Diabetes mellitus Sister Relation Status Comments Father Alive Mother Paternal Grandfather Paternal Grandmother Paternal Great-Grandmother Sister Alive Social History Tobacco Use Types Packs/Day Years Used Date Smoking Tobacco: Every Day Cigarettes 2 37.7 Started: 03/31/1987 Smokeless Tobacco: Never Tobacco Cessation:Ready [...] 1:20 PM EST Office Visit [facility] [address] [place] [address] Efraín Bhatia DO [address] [place] [address] [email or web address] Health Maintenance Due Date Last Done Comments [...] PRESSURE 04/06/2025 10/04/2024 HEMOGLOBIN A1C 04/06/2025 10/04/2024, 0408/2024, 06/06/2024, Additional history exists SMOKING Hx and [...] DO LAB BLOOD ORDERABLES Final Resul t [address] [address] from Last 3 Months or Most Recently Relevant to Health Maintenance Insurance [facility] MEDICARE PART A & B [place] PART A & [place] PART A & B [facility] MEDICARE PART A & B Care Teams Union Organizer Relationship Specialty Start Date End Date Rowena Cedeno MD [address] [facility] [place] [address] PCP - General Internal Medicine 02/24/23 Bruce Ye MD [address] [place], [place] [address] [address] Nephrology 04/05/23 Raymundo Adams MD [address] [place] [address] Family Medicine 04/05/23 Ishmael Beckwith MD [address] [place] [address] [address] [address] [email or web address] Nephrology 04/05/23 Matilda Gonzalez DPM [address] [place] [address] Podiatry 04/05/23 Paxton Nance DDS [address] [place] [address] 04/05/23 Efraín Lopez DPM Podiatry 04/05/23 Additional Source Comments The information contained in this document represents components of the legal health record. It is not the complete legal health record.[facility]
[2024-11-29 16:12] LABS: MANUAL DIFF FLAG NO
[2024-11-29 16:16] LABS: Hematocrit 43.4 % (42.0-52.0); Hemoglobin 15.1 g/dl (14.0-18.0); Imm Gran Abs Auto 0.04 X10*3/uL (0.00-0.03); Imm Gran Pct Auto 0.5 % (0.0-0.4); Lymphocytes Absolute Auto 2.5 X10*3/uL (1.2-4.9); Mean Corpuscular HGB Conc 34.8 g/dl (31.0-36.0); Mean Corpuscular Hemoglobin 27.9 pg (27.0-33.0); Mean Corpuscular Volume 80.1 fL (80.0-98.0); NRBC Abs Auto 0.000 X10*3/uL (0.0-0.012); NRBC Pct Auto 0.0 /100WBC (0.0-0.2); Platelet Count 210 X10*3/uL (160-400); Red Blood Count 5.42 X10*6/uL (4.60-5.80); White Blood Count 8.6 X10*3/uL (4.8-10.8)
== END 2024-11-29 13:22 | disposition home or self-care (01) ==
LOC: HO.HMGCLR 13:21
PROVIDERS: PCP Internal Medicine
DX: Z79.899 Other long term (current) drug therapy (principal)
CPT/HCPCS: 36415; 85025

== ENCOUNTER 2024-12-11 11:04 | Emergency (ER) | payer MEDICARE, MEDICAID, SELFPAY ==
--- NOTE | ~2024-12-11 | US_ITS ---
CLINICAL HISTORY: Bilateral lower extremity pain Venous duplex ultrasound bilateral lower extremity Comparison: None provided Findings: The visualized deep veins are fully compressible with normal Doppler color flow and spectral tracings. Rouleaux flow noted within the right popliteal vein. No popliteal cyst. IMPRESSION: 1. Negative for bilateral lower extremity deep vein thrombosis. 2. Rouleaux flow is noted within the right popliteal vein. This can indicate venous stasis or hyperviscosity. This document has been electronically signed by: Jossy Perla MD on 12/11/2024 16:28:20
--- NOTE | ~2024-12-11 | XR_ITS ---
CLINICAL HISTORY: Pain 5 view, pelvis and bilateral hips Comparison: CR - XR HIP LT W PEL1V - 06/11/24 09:01 EDT Findings: The bones are intact. No significant arthritic change. The soft tissues are unremarkable. IMPRESSION: No acute findings. This document has been electronically signed by: Jossy Perla MD on 12/11/2024 15:45:09
[2024-12-11 11:16] VITALS: BP 141/81; PULSE 102; RESP 20; TEMP 36.2; O2SAT 96; BMI 32.8
--- NOTE | 2024-12-11 11:16 | ED.GENADULT ---
HPI - General Adult General Chief complaint: Extremity Injury, Lower Stated complaint: ABD TO PELVIS AFTER WORKING OUT PER EMS Time Seen by Provider: 12/11/24 14:22 Source: patient Mode of arrival: ambulatory Limitations: no limitations History of Present Illness ED Provider: DR. Castellanos HPI narrative: 44-year-old male with PMH of IDDM, HLD, CKD, schizoaffective disorder who presented to the ED for bilateral groins pain especially if he try to abduct his legs, patient had similar symptoms in the past when he was exercising, patient otherwise declined any injury, no fall, no strenuous activity, patient is able to ambulate steadily, no fever, no chills, no skin discharge, no skin redness or hotness. Related Data Home Medications ?Medication ?Instructions ?Recorded ?Confirmed haloperidol 5 mg tablet 5 mg PO BID 04/03/20 10/05/24 acetaminophen 500 mg tablet 500 mg PO Q12H PRN Pain 10/21/22 10/05/24 (Tylenol Extra Strength) albuterol sulfate 90 mcg/actuation 2 puff inhalation Q6H PRN for 02/01/23 10/05/24 aerosol inhaler wheezing semaglutide 1 mg/dose (4 mg/3 mL) 1 mg subcut TH@0900 09/14/23 10/05/24 subcutaneous pen injector (Ozempic) hydroxyzine HCl 25 mg tablet 25 mg PO DAILY 12/28/23 10/05/24 lorazepam 1 mg tablet 1 mg PO DAILY PRN Anxiety 12/28/23 10/05/24 clozapine 200 mg tablet 200 mg PO BEDTIME 05/01/24 10/05/24 insulin lispro-aabc 100 unit/mL 1 sliding scale dose subcut 08/31/24 10/05/24 subcutaneous pen (Lyumjev KwikPen USEASDIRECTD U-100 Insulin) omega-3 fatty acids 1,000 mg 2,000 mg PO BID 08/31/24 10/05/24 capsule insulin degludec 100 unit/mL 40 unit subcut DAILY 10/05/24 10/05/24 subcutaneous solution (Tresiba U-100 Insulin) Previous Rx's ?Medication ?Instructions ?Recorded fluticasone propionate 50 1 spray intranasal BEDTIME 30 days 01/28/23 mcg/actuation nasal #16 grams spray,suspension (Flonase Allergy Relief) flash glucose scanning reader #1 ea 02/01/23 (FreeStyle Maria D 2 [place]) flash glucose sensor (FreeStyle #1 ea 02/01/23 Maria D 2 Sensor kit) pen needle, diabetic 33 gauge x #100 ea 11/22/23 3/ (Comfort EZ Pen [place]) umeclidinium 62.5 mcg-vilanterol 1 ea PO DAILY #60 ea 12/27/23 25 mcg/actuation powdr for inhalation (Anoro Ellipta) Extra depth orthopedic shoes (1 #1 ea 07/03/24 pair) with customized heat molded Multi- density Innersoles (3 pairs) fenofibrate 160 mg tablet 160 mg PO DAILY #90 tabs 07/18/24 empagliflozin 25 mg tablet 25 mg PO DAILY #30 tabs 07/28/24 omeprazole 20 mg capsule,delayed 20 mg PO BID #180 caps 08/03/24 release sennosides 8.6 mg-docusate sodium 1 tab-cap PO BEDTIME #30 tabs 10/05/24 50 mg tablet (Senna-S) losartan 25 mg tablet 25 mg PO DAILY 3 months #90 tabs 10/20/24 rosuvastatin 5 mg tablet 5 mg PO DAILY #90 tabs 11/07/24 Allergies Allergy/AdvReac Type Severity Reaction Status Date / Time No Known Allergies Allergy Verified 12/11/24 11:17 Review of Systems Review of Systems: All other systems are reviewed and are negative Constitutional: Reports as per HPI and Reports no additional constitutional complaints Eyes: Reports as per HPI and Reports no additional eye complaints Reports system reviewed and no additional complaints, except as documented Cardiovascular: Reports as per HPI and Reports no additional cardiovascular complaints Respiratory: Reports as per HPI and Reports no additional respiratory complaints Gastrointestinal: Reports as per HPI and Reports no additional gastrointestinal complaints Genitourinary: Reports no additional female genitourinary complaints Musculoskeletal: Reports no additional musculoskeletal complaints Skin/Breast: Reports system reviewed and no additional complaints, except as docu Psychiatric: Reports no additional psychiatric complaints Endocrine: Reports no additional endocrine complaints Hematologic/Lymphatic: Reports no additional hematologic/lymphatic complaints Allergic/Immunologic: Reports no additional allergic/immunologic complaints Reports system reviewed and no additional complaints, except as documented and Reports Abnormal speech present PMFSH Past Medical History Medical History Acquired hammer toe deformity of lesser toe of both feet Pre-ulcerative calluses CKD (chronic kidney disease) stage 3, GFR 30-59 ml/min Tinea unguium Type 2 diabetes mellitus with diabetic polyneuropathy CKD (chronic kidney disease) stage 4, GFR 15-29 ml/min Type 2 diabetes mellitus with complication, with long-term current use of insulin Uncontrolled diabetes mellitus with hyperglycemia Hypercalcemia Noncompliance with medication regimen Rash and nonspecific skin eruption Tremor Vitamin D deficiency Mixed dyslipidemia Restrictive airway disease Type 2 diabetes mellitus with other diabetic kidney complication Solitary pulmonary nodule on lung CT Smoker unmotivated to quit Obesity (BMI 30-39.9) Schizoaffective disorder Essential hypertension Surgical History No pertinent past surgical history Family History Family History Father Unknown family medical history Mother Unknown family medical history Brother No problems noted. Sister No problems noted. Social History Social History Housing: Other Housing Other:: [facility] Unable to assess alcohol history related to: Unknown Alcohol intake: never Patient Tobacco Use Status: Current everyday Tobacco user Cigarette Packs Per Day: 2 e-Cigarette/Vaping Use: Never Used Substance Use Type: Marijuana Advance Directives: Yes Advance Directives on File: Yes Advance Directives Date on File: 12/06/23 service: No Current occupational status: disabled Cognitive needs: No Hearing needs: No Vision needs: Yes Physical Exam ED Vital Signs: Vital Signs - 24 hr 12/11/24 11:16 12/11/24 12:00 12/11/24 14:24 Temperature 97.2 F 98.2 F 97.5 F Pulse Rate 102 H 93 89 Respiratory Rate 20 18 14 Blood Pressure 141/81 H 128/88 140/91 H Pulse Oximetry 96 96 98 Oxygen Delivery Method Room Air Room Air Room Air BMI result Body Mass Index 32.8 Vital signs have been reviewed and appear to be correct. Blood pressure elevated. Heart rate normal. Respiratory rate normal. Temperature normal. Oxygen saturation normal. Appearance: Alert. Oriented X3. No acute distress. Head: Normal external exam. Normocephalic. Atraumatic. No Han signs noted. No raccoon eyes noted Eyes: PERRLA. EOMI. Conjunctiva and sclera normal. Eyelids normal. ENT: TM's Normal. Pharynx normal. Uvula midline. Moist mucous membranes. No trismus noted. No drooling noted. No muffled voice noted. Neck: Normal inspection. Neck supple. FROM. No adenopathy. Thyroid Normal. No meningeal signs. No neck mass noted. CVS: Normal heart rate and rhythm. Heart sound normal. No murmurs noted. Pulses normal throughout. Respiratory: No respiratory distress. Painless inspiration. Breath sounds normal. No wheezes/rales/rhonchi noted. Chest nontender. No accessory muscle usage noted or decreased air movement noted. Abdomen: Soft and nontender. Bowel sounds normal in all 4 quadrants. No distention noted. No organomegaly noted. No visible injury noted. Back: No CVA tenderness. Full range of motion noted. Skin: No redness, no hotness, no tenderness over any skin region in particular in the anterior thigh area. Extremities: No lower extremity edema. Extremities exhibit normal range of motion. Extremities nontender. Neuro: Oriented X 3. Cranial nerve exam: II-XII are grossly intact No motor deficit. No sensory deficit. Reflexes normal. Course Course Course Narrative: Rapid medical examination performed in triage by Zhanna Lowry PA-C. Patient is a 44 year old assigned male at presenting to the emergency department with bilateral thigh pain. Patient states over the last week he has had bilateral thigh pain that is not improving. Detailed physical exam and review of systems are deferred to the home health clinician. Labs ordered. Patient placed back in the waiting room pending room availability and results. Reevaluation(s) Reevaluation #1: Bilateral groin area pain only with adduction of both legs, unremarkable skin exam, unremarkable neurovascular exam. X-ray is unremarkable for acute pathology. No infectious process in the inner thigh area. No ligamentous injury, no DVT. Necrotizing fasciitis is extremely unlikely without involving the skin or the scrotum with normal WBCs. Time: 15:00 Medications Administered Discontinued Medications Generic Name Dose Route Start Last Admin Trade Name Freq PRN Reason Stop Dose Admin Ibuprofen 600 mg 12/11/24 15:04 12/11/24 15:46 Ibuprofen 600 Mg Tablet PO 12/11/24 15:05 600 mg ONCE ONE Administration Medical Decision Making Differential Diagnosis Differential Diagnoses: The differential diagnosis associated with the presentation includes (DVT, bilateral hip arthritis, bilateral inguinal ligament injury, cellulitis, necrotizing fasciitis.) Admission/Observation Consideration of admission/observation: Escalation of care including admission/observation considered Lab Data MDM Lab Attestation statement: I reviewed the patient's lab results. 12/11/24 11:25 12/11/24 11:25 Labs: Lab Results 12/11/24 12/11/24 Range/Units 11:25 13:46 WBC 9.1 (4.8-10.8) X10*3/uL RBC 5.73 (4.60-5.80) X10*6/uL Hgb 15.9 (14.0-18.0) g/dl Hct 47.0 (42.0-52.0) % MCV 82.0 (80.0-98.0) fL MCH 27.7 (27.0-33.0) pg MCHC 33.8 (31.0-36.0) g/dl RDW 14.1 (11.0-16.0) % Plt Count 207 (160-400) X10*3/uL MPV 9.4 (9.4-12.4) fL Immature Gran % (Auto) 0.4 (0.0-0.4) % Neut % (Auto) 70.1 (45-73) % Lymph % (Auto) 22.9 (20-40) % Cache % (Auto) 6.1 (2-11) % Eos % (Auto) 0.4 (0-4) % Baso % (Auto) 0.1 (0-2) % Lymph # (Auto) 2.1 (1.2-4.9) X10*3/uL Cache # (Auto) 0.6 (0.1-1.2) X10*3/uL Eos # (Auto) 0.0 (0.0-0.4) X10*3/uL Baso # (Auto) 0.0 (0.0-0.2) X10*3/uL Abs Immat Gran (auto) 0.04 H (0.00-0.03) X10*3/uL Absolute Neuts (auto) 6.4 (2.0-8.3) x10*3/uL Absolute Nucleated RBC 0.000 (0.0-0.012) X10*3/uL Nucleated RBC % (auto) 0.0 (0.0-0.2) /100WBC ESR 16 H (0-15) MM/HR Sodium 135 (135-145) mmol/L Potassium 4.7 (3.3-5.1) mmol/L Chloride 106 (96-108) mmol/L Carbon Dioxide 22 (22-29) mmol/L Anion Gap 12 (12-20) BUN 17 H (9-16) mg/dL Creatinine 1.76 H (0.5-1.4) mg/dL Estim Creat Clear Calc 60.1 Estimated GFR 42 Random Glucose 166 H (60-115) mg/dL Calcium 9.8 (8.4-10.2) mg/dL Magnesium 1.9 (1.6-2.6) mg/dL Total Bilirubin 0.2 (0.0-1.0) mg/dL AST 14 (5-37) U/L ALT 16 (0-40) U/L Alkaline Phosphatase 72 (39-117) U/L Total Creatine Kinase 77 (38-174) U/L C-Reactive Protein 1.89 H (< or = 0.50) mg/dL Total Protein 7.3 (6.5-8.0) g/dL Albumin 4.2 (3.5-5.0) g/dL Urine Color Yellow Urine Appearance Clear Urine pH 6.5 (5.0-9.0) Ur Specific [place] <= 1.005 (1.005-1.025) Urine Protein Negative (Neg-Trace) mg/dL Urine Glucose (UA) 500 H (Negative) mg/dL Urine Ketones Negative (Negative) mg/dL Urine Blood Negative (Negative) Urine Nitrite Negative (Negative) Ur Leukocyte Esterase Negative (Negative) Independent Interpretation I performed an independent interpretation of an: Plain X-Ray (Bilateral hips x-ray: Mild arthritis bilaterally.) and Ultrasound (Venous ultrasound: No DVT.) Radiology Impression Discussion of test interpretation with radiology: I have reviewed the radiologist's reading. Discharge Plan Discharge Clinical Impression: Sprain of groin Patient Disposition: Home, Self-Care Instructions: Sprain (ED) Additional Instructions: Take ibuprofen 200 mg tablet ([id number]) every 6 hours if needed for pain. Prescriptions: No Action (DME) pen needle, diabetic [Comfort EZ Pen [place]] 33 gauge x 3/16 needle See Rx Instructions .Route Qty: 100 4RF Rx Instructions: inject insulin twice daily Anoro Ellipta 62.5-25 mcg/actuation blister with device 1 ea PO DAILY Qty: 60 5RF (DME) Extra depth orthopedic shoes (1 pair) with customized heat molded Multi- density Innersoles (3 pairs) See Rx Instructions .Route .MEDSUPPLY Qty: 1 0RF Rx Instructions: As directed fenofibrate 160 mg tablet 160 mg PO DAILY Qty: 90 1RF empagliflozin 25 mg tablet 25 mg PO DAILY Qty: 30 5RF Rx Instructions: Take 1 tablet 1 hour before breakfast omeprazole 20 mg capsule,delayed release(DR/EC) 20 mg PO BID Qty: 180 2RF insulin degludec [Tresiba U-100 Insulin] 100 unit/mL solution 40 unit subcut DAILY losartan 25 mg tablet 25 mg PO DAILY 90 Days Qty: 90 2RF rosuvastatin 5 mg tablet 5 mg PO DAILY Qty: 90 1RF haloperidol 5 mg tablet 5 mg PO BID clozapine 200 mg tablet 200 mg PO BEDTIME acetaminophen [Tylenol Extra Strength] 500 mg tablet 500 mg PO Q12H PRN (Reason: Pain) Ozempic 1 mg/dose (4 mg/3 mL) pen injector 1 mg subcut TH@0900 albuterol sulfate 90 mcg/actuation HFA aerosol inhaler 2 puff inhalation Q6H PRN (Reason: for wheezing) (DME) FreeStyle Maria D 2 Sensor Kit See Rx Instructions .Route Qty: 1 5RF Rx Instructions: As directed (DME) FreeStyle Maria D 2 [place] Misc See Rx Instructions .Route Qty: 1 5RF Rx Instructions: As directed sennosides-docusate sodium [Senna-S] 8.6-50 mg tablet 1 tab-cap PO BEDTIME Qty: 30 3RF omega-3 fatty acids 1,000 mg capsule 2,000 mg PO BID Lyumjev KwikPen U-100 Insulin 100 unit/mL insulin pen 1 sliding scale dose subcut USEASDIRECTD fluticasone propionate [Flonase Allergy Relief] 50 mcg/actuation spray,suspension 1 spray intranasal BEDTIME 30 Days Qty: 16 6RF Rx Instructions: administer into each nostril lorazepam 1 mg tablet 1 mg PO DAILY PRN (Reason: Anxiety) hydroxyzine HCl 25 mg tablet 25 mg PO DAILY Referrals: Rowena Cedeno MD [Primary Care Provider, Internal Medicine] Print Language: Nepali
[2024-12-11 11:32] LABS: MANUAL DIFF FLAG NO
[2024-12-11 11:33] LABS: Hematocrit 47.0 % (42.0-52.0); Hemoglobin 15.9 g/dl (14.0-18.0); Imm Gran Abs Auto 0.04 X10*3/uL (0.00-0.03); Imm Gran Pct Auto 0.4 % (0.0-0.4); Lymphocytes Absolute Auto 2.1 X10*3/uL (1.2-4.9); Mean Corpuscular HGB Conc 33.8 g/dl (31.0-36.0); Mean Corpuscular Hemoglobin 27.7 pg (27.0-33.0); Mean Corpuscular Volume 82.0 fL (80.0-98.0); NRBC Abs Auto 0.000 X10*3/uL (0.0-0.012); NRBC Pct Auto 0.0 /100WBC (0.0-0.2); Platelet Count 207 X10*3/uL (160-400); Red Blood Count 5.73 X10*6/uL (4.60-5.80); White Blood Count 9.1 X10*3/uL (4.8-10.8)
[2024-12-11 11:45] LABS: Alanine Aminotransferase 16 U/L (0-40); Albumin Level 4.2 g/dL (3.5-5.0); Alkaline Phosphatase 72 U/L (39-117); Anion Gap 12 (12-20); Aspartate Amino Transferase 14 U/L (5-37); Blood Urea Nitrogen 17 mg/dL (9-16); Calcium 9.8 mg/dL (8.4-10.2); Carbon Dioxide 22 mmol/L (22-29); Chloride 106 mmol/L (96-108); Creatinine Clr Calc Pharmacy 60.1; Estimated Glomerular Filt Rate 42; Magnesium 1.9 mg/dL (1.6-2.6); Potassium 4.7 mmol/L (3.3-5.1); Sodium 135 mmol/L (135-145); Total Protein 7.3 g/dL (6.5-8.0)
[2024-12-11 12:00] VITALS: BP 128/88; PULSE 93; RESP 18; TEMP 36.8; O2SAT 96
[2024-12-11 12:11] LABS: Erythrocyte Sedimentation Rate 16 MM/HR (0-15)
--- OUTSIDE RECORDS SUMMARY | 2024-12-11 12:58 | XMS_ITS | Clinical Summary ---
Author Organization [facility] Address [address] [place] [id number] Phone Care Team Providers Care Supervisor [employer] Name Role Phone Rowena Cedeno MD Primary Care Provider Bruce Ye MD Unavailable [phone] Raymundo Adams MD Unavailable [phone] Ishmael Beckwith MD Unavailable [phone] Matilda Gonzalez DPM Unavailable [phone] Paxton Nance DDS Unavailable [phone] Efraín Lopez DPM Unavailable Renee vailable [...] feel symptomatic other than lightheadedness in the head of ethics and compliance hours. The patient has current severe hypoglycemia. [...] Care Team Description 11/21/2024 Refill [facility] [address] [place] [address] [place] [address] Efraín Bhatia DO Medication Refill 10/04/2024 1:20 PM EDT Office Visit [facility] [address] [place] [address] [place] [address] Efraín Bhatia, Type 2 diabetes mellitus with stage 4 chronic kidney disease, with long-term current use of insulin (Primary Dx); Type 2 diabetes mellitus with hyperglycemia, with long-term current use of insulin 09/20/2024 Refill [facility] [address] [place] [address] [place] [address] Efraín Bhatia DO Medication Refill from Last [...] 1:20 PM EST Office Visit [facility] [address] [place] [id number] Efraín Bhatia DO [address] [place] [address] [email or web address] Health Maintenance Due Date Last Done Comments [...] INFLUENZA VACCINE (#1) 2024 COVID-19 VACCINE ( - season) 2024 BLOOD PRESSURE 04/06/2025 10/04/2024 HEMOGLOBIN [...] EDT) SODIUM 134 133 - 146 mmol/L [facility] POTASSIUM 4.9 3.3 - 5.1 mmol/L [facility] Comment:Specimen slightly he molyzed, result may be falsely elevated. CHLORIDE 102 96 - 108 mmol/L [facility] CO2 22 21 - 35 mmol/L [facility] GLUCOSE 188(H) 70 - 99 mg/dL [facility] BUN 36(H) 6 - 19 mg/dL [facility] CREATININE 2.10(H) 0.5 - 1.5 mg/dL [facility] CALCIUM 9.9 8.4 - 10.3 mg/dL [facility] PHOSPHORUS 3.7 2.7 - 4.5 mg/dL [facility] ALBUMIN 4.0 3.9 - 4.8 g/dL [facility] EGFR 39(L) >59 mL/min/1.7 3m2 [facility] Comment:Estimated glomerular filtration rate calculated using the CKD-EPI refit equation. ANION GAP 15 10 - 20 mmol/L [facility] Blood 06/15/2024 8:46 AM EDT 06/15/2024 8:48 AM EDT us Efraín Bhatia DO LAB BLOOD ORDERABLES Final Resul t [address] [id number] from Last 3 Months or Most Recently Relevant to Health Maintenance Insurance [facility] MEDICARE PART A & B [place] B Member Subscriber Plan / Payer (Ef fective 1999-Present) Name:Matty Mcgee Member ID:[id number] Relation to Subscriber:Self Name:Matty Mcgee Subscriber ID:[id number] Payer ID:[id number] Group ID:Not on file Type:Medicare Address: [facility] [employer] [facility] [address] [place] [address] [place] A & B [facility] MEDICARE PART A & B Care Teams Supervisor [employer] Relationship Specialty Start Date End Date Rowena Cedeno MD [address] [place] [address] PCP - General Internal Medicine 02/24/23 Bruce Ye MD [address] [place], [place] [address], [place] [address] Nephrology 04/05/23 Raymundo Adams MD [address] [place] [id number] Family Medicine 04/05/23 Ishmael Beckwith MD [address] [place] [address] [email or web address] [address] [email or web address] 04/05/23 Matilda Gonzalez DPM [address] [place] [address] Podiatry 04/05/23 Paxton Nance DDS [address] [place] [address] 04/05/23 Efraín Lopez DPM Podiatry 04/05/23 Additional Source Comments The information contained in this document represents components of the legal health record. It is not the complete legal health record.[facility]
--- OUTSIDE RECORDS SUMMARY | 2024-12-11 12:58 | XMS_ITS | Patient Health Record ---
Author Organization [facility] Address [address] [facility] [place] [address] Care Team Providers Care Ui Developer Designer Name Role Phone Pao ZHANG, Rowena Garrido Primary Care Provider Un available Black, Matilda Unavailable [phone] Allergies No Known Allergies Results Component Value [...] 1 tablet Orally Once a day Not-Taking [place] 3 Active Cleocin-T 1 % 1 application to affected area Externally Twice a day Not-Takin g Trulicity Active PriLOSEC 20 MG 1 capsule Orally Onc e a day; Duration: 30 day(s) Not-Taking Omeprazole 20 MG 1 capsule 30 minutes before morning meal Orally Once a day Active [place] Carbonate 600 MG as directed Ora lly [...] Problem Acquired hammer toe of right foot (6917546221802964 ) Other hammer toe(s) (acquired), right foot (M20.41) Active confirmed Problem Acquired hammer toe of left foot (4212975204814430 ) Other hammer toe(s) (acquired), left foot (M20.42) Active confirmed Problem Polyneuropathy due to diabetes mellitus type I (192223233) Type 1 diabetes mellitus with diabetic polyneuropathy (E10.42) Active confirmed Vital Signs Blood pressure diastolic 80 mm Hg 11/06/2024 Height 5ft8in in 11/06/2024 Blood pressure systolic 139 mm Hg 11/06/2024 Weight 216 lbs 11/06/2024 BMI 32.84 kg/m2 11/06/2024 Procedures Procedure Date Ordered Date Performed Result Body Sit e 97757-ZRODQAA NAIL, 6 OR MORE 01/24/2024 N/A 93632-Logavgki Plate 01/24/2024 N/A 09975-UJSS SKIN LESIONS, OVER 4 01/24/2024 N/A 99981-QBJJUIX NAIL, 6 OR MORE 05/01/2024 N/A 72458-NZKA SKIN LESIONS, OVER 4 05/01/2024 N/A 68725-OTIYAZO NAIL, 6 OR MORE 08/07/2024 N/A 66179-HQFF SKIN LESIONS, OVER 4 08/07/2024 N/A 60800-QQSJBNS NAIL, 6 OR MORE 11/06/2024 N/A 03987-ZXWO SKIN LESIONS, OVER 4 11/06/2024 N/A Encounters Encounter Location Date Provider Diagnosis [address] [address] 01/24/2024 Matildajuan Gonzalez Type 1 diabetes mellitus with diabetic polyneuropathy E10.42 ; Tinea unguium B35.1 and Ingrown nail L60.[address] [address] 05/01/2024 Matilda Black Type 1 diabetes mellitus with diabetic polyneuropathy E10.42 ; Other hammer toe(s) (acquired), right foot M20.41 ; Tinea unguium B35.1 and Other hammer toe(s) (acquired), left foot M20.[address] [address] 08/07/2024 Matilda Black Other hammer toe(s) (acquired), right foot M20.41 ; Metatarsalgia, left foot M77.42 ; Type 1 diabetes mellitus with diabetic polyneuropathy E10.42 ; Tinea unguium B35.1 ; Other hammer toe(s) (acquired), left foot M20.42 ; Pain in left foot M79.672 ; Pain in left ankle and joints of left foot M25.572 and Bursitis of intermetatarsal bursa of left foot M77.[address] [address] 11/06/2024 Matilda Black Other hammer toe(s) (acquired), [...] Treatment Pending Test Test Name Order Date 52225-MODUTKB NAIL, 6 OR MORE 01/07/2012 23426-XYHLYLL NAIL, 6 OR MORE 04/11/2012 44980-YOLFJQS NAIL, 6 OR MORE 07/11/2012 05849-GECQJFB NAIL, 6 OR MORE 10/03/2012 82755-VANBVKP NAIL, 6 OR MORE 12/19/2012 08869-MAQVTHM NAIL, 6 OR MORE 03/23/2013 25619-FMADTVN NAIL, 6 OR MORE 06/21/2013 27765-JSEQILF NAIL, 6 OR MORE 09/20/2013 83285-YOTATDT NAIL, 6 OR MORE 12/07/2013 30420-GMIYBML NAIL, 6 OR MORE 03/14/2014 96954-ZMUFOID NAIL, 6 OR MORE 06/20/2014 31968-AJBOIKK NAIL, 6 OR MORE 08/23/2014 47686-DTDJWBI NAIL, 6 OR MORE 11/22/2014 32403-QMQTBSC NAIL, 6 OR MORE 02/13/2015 50115-ZJNVSST NAIL, 6 OR MORE 05/15/2015 29896-XAOTCCU NAIL, 6 OR MORE 08/12/2015 00071-KERJBQT NAIL, 6 OR MORE 11/11/2015 83456-RYZJFKO NAIL, 6 OR MORE 02/19/2016 25127-ETFNCBG NAIL, 6 OR MORE 05/21/2016 64108-RFDOHYX NAIL, 6 OR MORE 10/05/2016 87669-KYIGMSE NAIL, 6 OR MORE 01/11/2017 84608-VAAGMAC NAIL, 6 OR MORE 04/12/2017 05615-DGXPATF NAIL, 6 OR MORE 09/16/2017 57788-MQJWPVH NAIL, 6 OR MORE 12/16/2017 75855-MXERDUV NAIL, 6 OR MORE 03/17/2018 59505-OBUTENU NAIL, 6 OR MORE 07/14/2018 00495-ZFINMRT NAIL, 6 OR MORE 01/16/2019 73806-HECBDJZ NAIL, 6 OR MORE 08/17/2019 74287-PMQUFNM NAIL, 6 OR MORE 11/20/2019 99379-KOXTZAG NAIL, 6 OR MORE 03/07/2020 10980-CHSCCTF NAIL, 6 OR MORE 06/06/2020 39754-XISHUJC NAIL, 6 OR MORE 09/12/2020 27926-SLCTUPY NAIL, 6 OR MORE 12/26/2020 24226-PKEVQEK NAIL, 6 OR MORE 04/07/2021 94677-DUDNUCN NAIL, 6 OR MORE 07/07/2021 92466-WHVGNMG NAIL, 6 OR MORE 10/13/2021 40543-PCLLLTV NAIL, 6 OR MORE 01/12/2022 70749-PVWKPKK NAIL, 6 OR MORE 06/04/2022 78787-LZBLBJJ NAIL, 6 OR MORE 08/24/2022 87485-UOFKQLJ NAIL, 6 OR MORE 11/19/2022 88618-UEWIYZR NAIL, 6 OR MORE 02/08/2023 07107-QVYNCAZ NAIL, 6 OR MORE 05/20/2023 99967-RUJZGNY NAIL, 6 OR MORE 09/16/2023 74578-KEMEALL NAIL, 6 OR MORE 01/24/2024 18073-IWHJFDJ NAIL, 6 OR MORE 05/01/2024 43506-WMYWUVV NAIL, 6 OR MORE 08/07/2024 11640-DQELCPH NAIL, 6 OR MORE 11/06/2024 27822-Rhzwvshb Plate 01/24/2024 15766-Kiwkjcqe Plate 08/24/2022 70298-Gygxjxci Plate 10/13/2021 88545-Zikpgbky Plate 07/07/2021 07936-Racnrebx Plate 11/22/2014 85429-Czriqiqy Plate 08/23/2014 21908-Jkalpges Plate 06/20/2014 41455-Qndokcio Plate 03/14/2014 73240-Hngbtlnj Plate 12/07/2013 46021-Yxsimvee Plate 09/20/2013 75811-Vsuvyvbs Plate 06/21/2013 05899-Evweowms Plate Each Additional 96894-Qynjymrq Plate Each Additional 10/2021 27759, J0702- INJECT or DRAIN, JOINT/BUR SA 06/06/2020 41356-EFDO SKIN LESIONS, OVER 4 07/08/19 22 59290-ONWF SKIN LESIONS, OVER 4 02/07/20 22 69684-GSKN SKIN LESIONS, OVER 4 12/27/19 58162-COUC SKIN LESIONS, OVER 4 10/14/19 15494-XPPP SKIN LESIONS, OVER 4 01/13/20 88535-VHYF SKIN LESIONS, OVER 4 08/25/19 80901-JBQS SKIN LESIONS, OVER 4 06/05/19 44532-AWHH SKIN LESIONS, OVER 4 09/16/19 91155-XOBV SKIN LESIONS, OVER 4 05/20/19 25137-CDXF SKIN LESIONS, OVER 4 02/09/20 87184-STBE SKIN LESIONS, OVER 4 11/20/19 89005-OULL SKIN LESIONS, OVER 4 01/24/20 77690-SXLI SKIN LESIONS, OVER 4 05/02/19 79084-PJUY SKIN LESIONS, OVER 4 08/08/19 31566-QIXH SKIN LESIONS, OVER 4 11/07/19 26035-YNOQ SKIN LESIONS, 2 TO 4 06/07/19 23268-ZUBS SKIN LESIONS, 2 TO 4 09/13/19 08416-YEIZ SKIN LESIONS, 2 TO 4 03/07/19 21 05149-QDXS SKIN LESIONS, 2 TO 4 11/20/19 20 16616-HOHB SKIN LESIONS, 2 TO 4 08/17/19 86406-XYAW SKIN LESIONS, 2 TO 4 01/17/20 19 09961-HUUU SKIN LESIONS, 2 TO 4 07/15/19 19 35186-WJOX SKIN LESIONS, 2 TO 4 03/17/19 19 82884-PPDW SKIN LESIONS, 2 TO 4 12/17/19 18 14066-HFSB SKIN LESIONS, 2 TO 4 09/17/19 18 11887-GTYX SKIN LESIONS, 2 TO 4 01/12/20 17 79858-CEMN SKIN LESIONS, 2 TO 4 04/12/19 18 45736-KZJP SKIN LESIONS, 2 TO 4 06/22/19 14 87017-DRWP SKIN LESIONS, 2 TO 4 09/21/19 14 87228-VKQL SKIN LESIONS, 2 TO 4 12/08/19 14 55855-TJYQ SKIN LESIONS, 2 TO 4 03/23/19 14 17242-CHPR SKIN LESIONS, 2 TO 4 10/04/19 13 68707-LMSC SKIN LESIONS, 2 TO 4 07/12/19 13 31943-JTMD SKIN LESIONS, 2 TO 4 03/14/19 15 89638-PPKQ SKIN LESIONS, 2 TO 4 06/21/19 15 34585-RLAT SKIN LESION 05/21/2016 80882-QNLG SKIN LESION 10/05/2016 Next Appt Details Provider Name:Matilda Gonzalez , 01/18/2025 02:15:00 PM, [address] [place], [address], Insurance Providers Payer Name Payer Address Payer Phone Subscriber Number Group Number Insured Name Patient Relationship to Insured Coverage Start Date Coverage End Date Medicare National [employer] [address] [place] [address] [id number] FranciscaarMatty penn Self - patient is the insured Medical (General) History Medical History History ICD Code anxiety depression diabetic headaches/migraines high blood pressure psychiatric disorder reflux chicken pox Surgical History Surgery Date(Month/Year) Hospitalization History Reason Date(Month/Year) bad hip [facility] [place] [facility] [place] cant remember overnight sleep study 12/2014
--- NOTE | 2024-12-11 13:32 | PC.NURSE ---
Pt to ED 7 from triage, reports pain to interior portion of bilat thighs after doing leg raises last couple days. Also reports hx of hernia. A/O x 3 and able to stand bedside, changed into hospital attire. VS obtained, pt given urinal and informed of need for urine sample when able.
[2024-12-11 14:02] LABS: Appearance Urine Clear; Glucose Urine UA 500 mg/dL (Negative); PH 6.5 (5.0-9.0); Specific Gravity - Urine <= 1.005 (1.005-1.025)
[2024-12-11 14:24] VITALS: BP 140/91; PULSE 89; RESP 14; TEMP 36.4; O2SAT 98
[2024-12-11 16:57] VITALS: BP 140/91; PULSE 89; RESP 14; TEMP 36.4; O2SAT 98
== END 2024-12-11 16:58 | disposition home or self-care (01) ==
PROVIDERS: Physician Assistant Medical; Emergency Provider Emergency Medicine; PCP Internal Medicine
DX: S76.212A Strain of adductor muscle, fascia and tendon of left thigh, initial encounter (principal); S76.211A Strain of adductor muscle, fascia and tendon of right thigh, initial encounter; M16.0 Bilateral primary osteoarthritis of hip; M79.652 Pain in left thigh; M79.651 Pain in right thigh; E11.22 Type 2 diabetes mellitus with diabetic chronic kidney disease; I12.9 Hypertensive chronic kidney disease with stage 1 through stage 4 chronic kidney disease, or unspecified chronic kidney disease; N18.4 Chronic kidney disease, stage 4 (severe); Z79.4 Long term (current) use of insulin; X58.XXXA Exposure to other specified factors, initial encounter; Y93.9 Activity, unspecified; Y92.9 Unspecified place or not applicable; Y99.9 Unspecified external cause status
CPT/HCPCS: 36415; 73522; 80053; 81003; 82550; 83735; 85025; 85652; 86140; 93970; 99284

== ENCOUNTER → 2024-12-11 14:58 | Outpatient (BNV) | payer MEDICARE, MEDICAID, SELFPAY | PROVIDERS: Emergency Provider Emergency Medicine; PCP Internal Medicine; Visit Provider Radiology Diagnostic Radiology | DX: M79.604 Pain in right leg (principal); M79.605 Pain in left leg; M25.551 Pain in right hip; M25.552 Pain in left hip | CPT/HCPCS: 73522; 93970 ==

== ENCOUNTER 2024-12-28 08:52 | Outpatient (REF) | payer MEDICARE, MEDICAID, SELFPAY ==
--- OUTSIDE RECORDS SUMMARY | 2023-12-16 09:15 | XMS_ITS ---
Author Organization [facility] Address [address] [place] [address] Care Team Providers Care Forming Department End Finder Name Role Phone Pao ZHANG, Rowena Garrido Primary Care Provider Un available Matilda Gonzalez Unavailable [phone] Encounters Encounter Location Date Provider Diagnosis [address] [address] 12/16/2023 Matilda Carlos Plan Of Treatment Next Appt Details Provider Name:Matilda Gonzalez , 01/18/2025 02:15:00 PM, [address] [place] [address], [address], Progress Notes * Matty MCGEEDOB:[birth year] (44 yo M)Acc No.[id number]:12/16/2023 Progress Note Patient: Benjamin PASCALBRITANYSurjit ANDRADEto Provider: Jacky Gonzalez DPM :1980 A ge:43 Y S ex:Male Date:12/16/2023 [facility] [place] Pcp:Antonella Swan Subjective: * Chief Complaints: * [...] Date: 1 Generated for Rukhsana melton/Sylvia/Hans on: 09:52 AM EDT
--- OUTSIDE RECORDS SUMMARY | 2023-12-27 07:15 | XMS_ITS ---
Author Organization [facility] Address [address] [place] [address] Care Team Providers Care Satellite Tv Technician Name Role Phone Pao ZHANG, Rowena Garrido Primary Care Provider Un available Matilda Gonzalez Unavailable [phone] Encounters Encounter Location Date Provider Diagnosis [address] [address] 12/27/2023 Matilda Carlos Plan Of Treatment Next Appt Details Provider Name:Matilda Gonzalez , 01/18/2025 02:15:00 PM, [address] [place] [address], [phone], Progress Notes * Matty MCGEEDOB:[birth year] (44 yo M)Acc No.[id number]:12/27/2023 Progress Note Patient: Benjamin PASCALBRITANYSurjit ANDRADEto Provider: Jacky Gonzalez DPM :1980 A ge:43 Y S ex:Male Date:12/27/2023 [facility] [place] Pcp:Antonella Swan Subjective: * Chief Complaints: * [...]
--- OUTSIDE RECORDS SUMMARY | 2024-12-28 09:53 | XMS_ITS | Patient Health Record ---
Author Organization [facility] Address [address] [facility] [place] [address] Care Team Providers Care Wind Development Director Name Role Phone Pao ZHANG, Rowena Garrido Primary Care Provider Un available Black, Matilda Unavailable [phone] Allergies No Known Allergies Results Component Value [...] 1 tablet Orally Once a day Not-Taking [place] 3 Active Cleocin-T 1 % 1 application to affected area Externally Twice a day Not-Takin g Trulicity Active PriLOSEC 20 MG 1 capsule Orally Onc e a day; Duration: 30 day(s) Not-Taking Omeprazole 20 MG 1 capsule 30 minutes before morning meal Orally Once a day Active [place] Carbonate 600 MG as directed Ora lly [...] Problem Acquired hammer toe of right foot ([id number] ) Other hammer toe(s) (acquired), right foot (M20.41) Active confirmed Problem Acquired hammer toe of left foot (9339967586765881 ) Other hammer toe(s) (acquired), left foot (M20.42) Active confirmed Problem Polyneuropathy due to diabetes mellitus type I (036225426) Type 1 diabetes mellitus with diabetic polyneuropathy (E10.42) Active confirmed Vital Signs Blood pressure diastolic 80 mm Hg 11/06/2024 Height 5ft8in in 11/06/2024 Blood pressure systolic 139 mm Hg 11/06/2024 Weight 216 lbs 11/06/2024 BMI 32.84 kg/m2 11/06/2024 Procedures Procedure Date Ordered Date Performed Result Body Sit e 29962-FLEKPII NAIL, 6 OR MORE 01/24/2024 N/A 17081-Eigfhvha Plate 01/24/2024 N/A 21680-KGUE SKIN LESIONS, OVER 4 01/24/2024 N/A 27786-DZANUJM NAIL, 6 OR MORE 05/01/2024 N/A 24390-SRCV SKIN LESIONS, OVER 4 05/01/2024 N/A 66353-UXWBKPM NAIL, 6 OR MORE 08/07/2024 N/A 14571-XYQV SKIN LESIONS, OVER 4 08/07/2024 N/A 24439-ERHNDQZ NAIL, 6 OR MORE 11/06/2024 N/A 90039-PWDU SKIN LESIONS, OVER 4 11/06/2024 N/A Encounters Encounter Location Date Provider Diagnosis [address] [address] 01/24/2024 Matildajuan Gonzalez Type 1 diabetes mellitus with diabetic polyneuropathy E10.42 ; Tinea unguium B35.1 and Ingrown nail L60.[address] [address] 05/01/2024 Matilda Black Type 1 diabetes mellitus with diabetic polyneuropathy E10.42 ; Other hammer toe(s) (acquired), right foot M20.41 ; Tinea unguium B35.1 and Other hammer toe(s) (acquired), left foot M20.[address] [address] 08/07/2024 Matilda Black Other hammer toe(s) (acquired), right foot M20.41 ; Metatarsalgia, left foot M77.42 ; Type 1 diabetes mellitus with diabetic polyneuropathy E10.42 ; Tinea unguium B35.1 ; Other hammer toe(s) (acquired), left foot M20.42 ; Pain in left foot M79.672 ; Pain in left ankle and joints of left foot M25.572 and Bursitis of intermetatarsal bursa of left foot M77.[address] [address] 11/06/2024 Matilda Black Other hammer toe(s) (acquired), [...] Treatment Pending Test Test Name Order Date 91692-NRAWSXT NAIL, 6 OR MORE 01/07/2012 17705-UYNXCLA NAIL, 6 OR MORE 04/11/2012 71489-JMSNSIS NAIL, 6 OR MORE 07/11/2012 27907-PNDNAGS NAIL, 6 OR MORE 10/03/2012 31282-VVYTQAB NAIL, 6 OR MORE 12/19/2012 08429-PEDUKII NAIL, 6 OR MORE 03/23/2013 23152-ZCOOTJK NAIL, 6 OR MORE 06/21/2013 57066-EIDGIUK NAIL, 6 OR MORE 09/20/2013 67432-ZGRPIJZ NAIL, 6 OR MORE 12/07/2013 66005-WXFRSYY NAIL, 6 OR MORE 03/14/2014 66886-OXEHYMJ NAIL, 6 OR MORE 06/20/2014 84498-VEHOUYP NAIL, 6 OR MORE 08/23/2014 34755-RVCFOMK NAIL, 6 OR MORE 11/22/2014 02750-RWZFFYG NAIL, 6 OR MORE 02/13/2015 81454-ISALGEU NAIL, 6 OR MORE 05/15/2015 12935-WSOCMGC NAIL, 6 OR MORE 08/12/2015 31244-MSCWSSR NAIL, 6 OR MORE 11/11/2015 22834-JSSKZYM NAIL, 6 OR MORE 02/19/2016 46778-RBXQLBU NAIL, 6 OR MORE 05/21/2016 58209-RUZXPNS NAIL, 6 OR MORE 10/05/2016 30214-MTOQXDK NAIL, 6 OR MORE 01/11/2017 36632-SWXXABP NAIL, 6 OR MORE 04/12/2017 44912-XTFJJLO NAIL, 6 OR MORE 09/16/2017 61296-ASRDFZR NAIL, 6 OR MORE 12/16/2017 27638-KNCVJJI NAIL, 6 OR MORE 03/17/2018 25259-HIVLRKW NAIL, 6 OR MORE 07/14/2018 13119-YWOJSED NAIL, 6 OR MORE 01/16/2019 68568-WBUFSXE NAIL, 6 OR MORE 08/17/2019 85730-TVMEJDS NAIL, 6 OR MORE 11/20/2019 05495-QSGBZIH NAIL, 6 OR MORE 03/07/2020 47007-NILVVHY NAIL, 6 OR MORE 06/06/2020 29939-EVRYIGV NAIL, 6 OR MORE 09/12/2020 55656-EKOXVRX NAIL, 6 OR MORE 12/26/2020 13451-SRSQEKJ NAIL, 6 OR MORE 04/07/2021 28702-QNCNWKT NAIL, 6 OR MORE 07/07/2021 01665-VRNZNFD NAIL, 6 OR MORE 10/13/2021 97842-MFRBGKZ NAIL, 6 OR MORE 01/12/2022 45602-TUNMHJZ NAIL, 6 OR MORE 06/04/2022 95427-ATOFVMB NAIL, 6 OR MORE 08/24/2022 49117-OGLFCAC NAIL, 6 OR MORE 11/19/2022 21656-OOYHMMZ NAIL, 6 OR MORE 02/08/2023 26813-JOOZFEH NAIL, 6 OR MORE 05/20/2023 40570-AXVPSBA NAIL, 6 OR MORE 09/16/2023 08857-SIEBSMU NAIL, 6 OR MORE 01/24/2024 04660-QAOIJKS NAIL, 6 OR MORE 05/01/2024 97090-UGKNJWB NAIL, 6 OR MORE 08/07/2024 56680-DKHMKOL NAIL, 6 OR MORE 11/06/2024 57863-Qpseaqub Plate 01/24/2024 78508-Rbttpjrv Plate 08/24/2022 84771-Vqiqqzeh Plate 10/13/2021 26483-Zlredbpd Plate 07/07/2021 75454-Ofuasxcz Plate 11/22/2014 60953-Uljglssj Plate 08/23/2014 61872-Cnaojuge Plate 06/20/2014 66572-Vmyutddz Plate 03/14/2014 10571-Rcpponmo Plate 12/07/2013 96946-Nubsmjvk Plate 09/20/2013 25652-Gulclunr Plate 06/21/2013 23289-Rwprtemj Plate Each Additional 89519-Lkgypeus Plate Each Additional 10/2021 34257, J0702- INJECT or DRAIN, JOINT/BUR SA 06/06/2020 05295-AQAY SKIN LESIONS, OVER 4 07/08/19 22 32506-ESIZ SKIN LESIONS, OVER 4 02/07/20 22 64009-LKGI SKIN LESIONS, OVER 4 12/27/19 44676-GFIX SKIN LESIONS, OVER 4 10/14/19 04173-MDZI SKIN LESIONS, OVER 4 01/13/20 07107-WHZG SKIN LESIONS, OVER 4 08/25/19 18918-HOHJ SKIN LESIONS, OVER 4 06/05/19 16644-TYTE SKIN LESIONS, OVER 4 09/16/19 25305-YKBW SKIN LESIONS, OVER 4 05/20/19 70226-ORRN SKIN LESIONS, OVER 4 02/09/20 35932-RZSA SKIN LESIONS, OVER 4 11/20/19 52954-HEKX SKIN LESIONS, OVER 4 01/24/20 03384-DIVC SKIN LESIONS, OVER 4 05/02/19 55285-KDTY SKIN LESIONS, OVER 4 08/08/19 34451-MCTI SKIN LESIONS, OVER 4 11/07/19 01066-UJFZ SKIN LESIONS, 2 TO 4 06/07/19 59787-DZET SKIN LESIONS, 2 TO 4 09/13/19 67522-YUQU SKIN LESIONS, 2 TO 4 03/07/19 21 36732-FHRK SKIN LESIONS, 2 TO 4 11/20/19 20 38207-NWMW SKIN LESIONS, 2 TO 4 08/17/19 75545-MTJV SKIN LESIONS, 2 TO 4 01/17/20 19 71555-BTIQ SKIN LESIONS, 2 TO 4 07/15/19 19 97965-KDEX SKIN LESIONS, 2 TO 4 03/17/19 19 92661-IXZB SKIN LESIONS, 2 TO 4 12/17/19 18 75697-YXOQ SKIN LESIONS, 2 TO 4 09/17/19 18 92584-OTEI SKIN LESIONS, 2 TO 4 01/12/20 17 65823-VVSH SKIN LESIONS, 2 TO 4 04/12/19 18 67813-QDHK SKIN LESIONS, 2 TO 4 06/22/19 14 93547-ECZJ SKIN LESIONS, 2 TO 4 09/21/19 14 65630-QKXA SKIN LESIONS, 2 TO 4 12/08/19 14 46191-JRON SKIN LESIONS, 2 TO 4 03/23/19 14 70368-YRZY SKIN LESIONS, 2 TO 4 10/04/19 13 85440-XDAI SKIN LESIONS, 2 TO 4 07/12/19 13 25239-GTWV SKIN LESIONS, 2 TO 4 03/14/19 15 36928-PRXW SKIN LESIONS, 2 TO 4 06/21/19 15 62896-XWAE SKIN LESION 05/21/2016 89816-TPHJ SKIN LESION 10/05/2016 Next Appt Details Provider Name:Matilda Gonzalez , 01/18/2025 02:15:00 PM, [address] [place], [address], Insurance Providers Payer Name Payer Address Payer Phone Subscriber Number Group Number Insured Name Patient Relationship to Insured Coverage Start Date Coverage End Date Medicare National [employer]t Sv[employer] [address] [place] [address] [id number] FranciscaarMatty penn Self - patient is the insured Medical (General) History Medical History History ICD Code anxiety depression diabetic headaches/migraines high blood pressure psychiatric disorder reflux chicken pox Surgical History Surgery Date(Month/Year) Hospitalization History Reason Date(Month/Year) bad [place] [facility] [place] [facility] [place] overnight sleep study 12/2014
[2024-12-28 11:08] LABS: Hematocrit 45.0 % (42.0-52.0); Hemoglobin 15.3 g/dl (14.0-18.0); Mean Corpuscular HGB Conc 34.0 g/dl (31.0-36.0); Mean Corpuscular Hemoglobin 27.7 pg (27.0-33.0); Mean Corpuscular Volume 81.4 fL (80.0-98.0); NRBC Abs Auto 0.000 X10*3/uL (0.0-0.012); NRBC Pct Auto 0.0 /100WBC (0.0-0.2); Platelet Count 199 X10*3/uL (160-400); Red Blood Count 5.53 X10*6/uL (4.60-5.80); White Blood Count 8.1 X10*3/uL (4.8-10.8)
== END 2024-12-28 08:53 | disposition home or self-care (01) ==
LOC: HO.HMGCLR 08:52
PROVIDERS: PCP Internal Medicine; Visit Provider Internal Medicine Hypertension Specialist
DX: N18.30 Chronic kidney disease, stage 3 unspecified (principal); Z79.899 Other long term (current) drug therapy
CPT/HCPCS: 36415; 85027

== ENCOUNTER 2025-01-04 11:43 | Outpatient (AMB) | payer MEDICARE, MEDICAID, SELFPAY ==
[2025-01-04 11:47] VITALS: BP 108/74; PULSE 104; O2SAT 96; BMI 32.8
--- NOTE | 2025-01-04 11:47 | HO.NEPHOV ---
Vital Signs 01/04/25 11:47 Height 5 ft 8 in Weight 216 lb BMI 32.8 BP 108/74 Blood Pressure Location Lt brachial Position Sitting Pulse 104 H Pulse Source Pulse Oximeter Pulse Oximetry (%) 96 Oxygen Delivery Method Room Air Intake Visit Reasons: 4mon follow-up w/labs conf Leaf Conditioner Required: No Allergies No Known Allergies Allergy (Verified 01/04/25 11:49) Medication List - Last Reconciled 01/04/25 by Bruce Ye MD acetaminophen (Tylenol Extra Strength) 500 mg PO Q12H PRN albuterol sulfate 90 mcg/actuation 2 puffs inhalation Q6H PRN clozapine 200 mg PO BEDTIME empagliflozin 25 mg PO DAILY [Extra depth orthopedic shoes (1 pair) with customized heat molded Multi- density Innersoles (3 pairs) As directed] fenofibrate 160 mg PO DAILY flash glucose scanning reader (FreeStyle Maria D 2 [place]) As directed flash glucose sensor (FreeStyle Maria D 2 Sensor kit) As directed fluticasone propionate 50 mcg/actuation (Flonase Allergy Relief) 1 spray intranasal BEDTIME 30 days haloperidol 5 mg PO BID hydroxyzine HCl 25 mg PO DAILY insulin degludec (Tresiba U-100 Insulin) 40 units subcut DAILY insulin lispro-aabc (Lyumjev KwikPen U-100 Insulin) 1 sliding scale dose subcut USEASDIRECTD lorazepam 1 mg PO DAILY PRN omega-3 fatty acids 2,000 mg PO BID omeprazole 20 mg PO BID pen needle, diabetic (Comfort EZ Pen [place]) inject insulin twice daily rosuvastatin 5 mg PO DAILY semaglutide (Ozempic) 1 mg subcut TH@0900 sennosides-docusate sodium 8.6-50 mg (Senna-S) 1 tab-cap PO BEDTIME umeclidinium-vilanterol 62.5-25 mcg/actuation (Anoro Ellipta) 1 ea PO DAILY HPI Comments Details: Matty is a middle-aged man with a history of schizoaffective disorder who was on lithium for many years. [place] was stopped 06/26/2022 He has a longstanding history of diabetes mellitus. History of chronic kidney disease. He was previously seen about a year ago and lost to follow-up. He has been referred again for management of CKD. Recent serum creatinine is 2.0 mg/dL with the EGFR of about 33 mL/minute. The blood pressure has been well controlled. He is currently on angiotensin receptor lesia along with Jardiance. He was on metformin which has been recently discontinued. He Smokes 2PPD 12/28/23 ;Overall doing OK ;Off Metformin now ;Currently on SGLT-2 inhibitors 05/01/24;c/o back pain - on and off; usually when sitting. No urinary symptoms. No GI sypmtoms Takes tylenol or Ibuprofen Still smokes 2 PPD 08/31/24 The patient is a 44-year-old male with CKD; continues to have chronic low back pain ;Recently had mild hyperkalemia. The patient reports experiencing low back pain primarily when sitting, which has been persistent for a long duration, including since his last visit. The pain is described as stiffness that occurs after sitting for 15 to 30 minutes and improves after standing and moving around. He denies taking any pain medications regularly, although Tylenol is listed as an option. The patient's kidney function is stable, but recent blood work indicates hyperkalemia. He admits to consuming foods high in potassium, such as bananas, which may contribute to the elevated levels. He is advised to reduce intake of high-potassium foods. A lung nodule was previously identified on a CT scan, and follow-up imaging shows it remains unchanged in size. The patient is a smoker, consuming two packs per day, which is a significant risk factor for lung issues. 01/04/25 The patient is a 44-year-old male presenting with hypertension and chronic kidney disease. The patient has a history of hypertension and chronic kidney disease, which have been managed over time with medication. The patient continues to smoke cigarettes despite being aware of the associated health risks, including a lung nodule that is being monitored. The patient has expressed difficulty in quitting smoking despite understanding its impact on his health. The patient's blood pressure was recorded at 108/74 mmHg, indicating good control. Recent blood tests showed stable kidney function at 42%, which is an improvement from the previous year. The patient reports occasional leg swelling, which is being monitored. [facility] Medical History Acquired hammer toe deformity of lesser toe of both feet Pre-ulcerative calluses CKD (chronic kidney disease) stage 3, GFR 30-59 ml/min Tinea unguium Type 2 diabetes mellitus with diabetic polyneuropathy CKD (chronic kidney disease) stage 4, GFR 15-29 ml/min Type 2 diabetes mellitus with complication, with long-term current use of insulin Uncontrolled diabetes mellitus with hyperglycemia Hypercalcemia Noncompliance with medication regimen Rash and nonspecific skin eruption Tremor Vitamin D deficiency Mixed dyslipidemia Restrictive airway disease Type 2 diabetes mellitus with other diabetic kidney complication Solitary pulmonary nodule on lung CT Smoker unmotivated to quit Obesity (BMI 30-39.9) Schizoaffective disorder Essential hypertension Surgical History No pertinent past surgical history Family History Father Unknown family medical history Mother Unknown family medical history Brother No problems noted. Sister No problems noted. Social History Housing: Other Housing Other:: retirement Alcohol intake: never Patient Tobacco Use Status: Current everyday Tobacco user Cigarette Packs Per Day: 2 e-Cigarette/Vaping Use: Never Used Substance Use Type: Marijuana Advance Directives Date on File: 12/06/23 service: No Current occupational status: disabled Cognitive needs: No Hearing needs: No Vision needs: Yes Physical Exam Vital Signs: Last Vital Signs Pulse 104 H 01/04/25 11:47 BP 108/74 01/04/25 11:47 Pulse Ox 96 01/04/25 11:47 Oxygen Delivery Method Room Air 01/04/25 11:47 BMI result Body Mass Index 32.8 Results Reviewed Nephrology Results: Hgb, (14.0-18.0) 15.3 g/dl 12/28/24 WBC, (4.8-10.8) 8.1 X10*3/uL 12/28/24 Plt Count, (160-400) 199 X10*3/uL 12/28/24 Sodium, (135-145) 135 mmol/L 12/11/24 Potassium, (3.3-5.1) 4.7 mmol/L 12/11/24 Chloride, (96-108) 106 mmol/L 12/11/24 Carbon Dioxide, (22-29) 22 mmol/L 12/11/24 BUN, (9-16) 17 mg/dL H 12/11/24 Creatinine, (0.5-1.4) 1.76 mg/dL H 12/11/24 Calcium, (8.4-10.2) 9.8 mg/dL 12/11/24 Urine Protein, (Neg-Trace) Negative mg/dL 12/11/24 Urine Creatinine 14.25 mg/dL 10/11/24 Assessment & Plan Assessment & Plan (1) CKD (chronic kidney disease) stage 3, GFR 30-59 ml/min: Code(s): N18.30 - Chronic kidney disease, stage 3 unspecified Category: Medical Plan Matty has stage IIIB chronic kidney disease. CKD is most likely due to underlying diabetic kidney disease. He has been on lithium for a long time therefore lithium nephropathy can not be ruled out. At present he has no evidence of diabetes insipidus. He is no longer on lithium. Goal is to slow the progression of renal disease. Continue to maintain obtain blood pressure less than 130/80. Discussed importance of tight control blood sugar and A1c should be maintained less than 7%. Discussed importance of smoking cessation but he has no intention to quit. He will definitely benefit from weight loss. Encouraged to AVOID NSAIDS/Ibuprofen Given the degree of renal insufficiency I agree with avoiding metformin due to risk of lactic acidosis. Agree with SGLT-2 inhibitors for renal protection We will continue to screen for comorbid conditions including anemia and secondary hyperparathyroidism prior to his next visit. Discussed smoking cessation again; He has no intention to quit Orders: Orders Complete Blood Count no Diff 4 Months N18.4 - Chronic kidney disease, stage 4 (severe) Basic Metabolic Panel 4 Months N18.4 - Chronic kidney disease, stage 4 (severe) Coding Level of Care Code Est Pt Level 4 (93459) Diagnoses CKD (chronic kidney disease) stage 3, GFR 30-59 ml/min N18.30
--- OUTSIDE RECORDS SUMMARY | 2025-01-04 14:41 | XMS_ITS ---
Author Organization [facility] Care Team Providers Care Heavy Equipment Engine Mechanic Name Role Phone Asiya Byers Unavailable Unavailable Yara Paredes Unavailable Unavailable Maeve Garcia Unavailable Unavailable Iva Walker Unavailable Unavailable Mariangel Marx Unavailable Unavailable Meeta Hoff Unavailable Unavailable Deshawn Arredondo Unavailable Unavailable Allergies and adverse reactions No Known Allergies Care Team Name Role Address Phone Organization Dates Yara Paredes PCP [address] [facility] [address], [place], [address], [place] (Office): [facility] 12/07/2023 - 12/14/2023 Asiya T[address], [place], [address], [place] (Office): [facility] 12/07/2023 - 12/14/2023 Maeve Garcia [address], [place], [address], [facility] (Office): : [facility] 12/07/2023 - 12/14/2023 Iva Walker [facility] [address], [place], [address], [facility] (Office): [facility] 12/07/2023 - 12/14/2023 Mariangel Araseli [address] [place], [address], [place] (Office): : [facility] 12/07/2023 - 12/14/2023 Meeta Kavya [address] [place] [address], [address], [facility] (Office): [facility] 12/07/2023 - 12/14/2023 Deshawn Arredondo [address] [place] [address], [address], [facility] (Office): : [facility] 12/07/2023 - 12/14/2023 Immunizations Immunization Status Vaccine Details Vaccine Code CodeSystem Date Notes Influenza completed Influenza, split virus, trivalent, injectable, contains preservative lotNumber: [id number] expiry: 08/28/2024 Mfg: seqinus Given 0.5 ml Right Deltoid intramuscularly 141 CVX created date: 12/08/2023 consent date: 12/08/2023 administer ed date: 12/07/2023 Educated by yannick on 12/07/2023 educated about the risks and benefits of the vaccine Mental Status Section Date Assessment Total Score Description 12/14/2023 CAM 0 No delirium ind icated 12/12/2023 BIMS 15 cognitively int act CAM 0 No delirium ind icated PHQ-9 00 Insurance Providers Problems Problem # Description Date of onset Resolved Date Code CodeSystem Concern Status 1 CHRONIC KIDNEY DISEASE, STAGE 3 UNSPECIFIED [address] active 2 ANXIETY DISORDER, UNSPECIFIED [address] active 3 CHRONIC KIDNEY DISEASE, STAGE 3 (MODERATE) 4 12/06/[address] completed 4 DIFFICULTY IN WALKING, NOT ELSEWHERE CLASSIFIED [address] active 5 ESSENTIAL (PRIMARY) HYPERTENSION [address] active 6 GASTRO-ESOPHAGEAL REFLUX DISEASE WITHOUT ESOPHAGITIS [address] active 7 MUSCLE WEAKNESS (GENERALIZED) [address] active 8 OTHER DISORDERS OF LUNG [address] active 9 OTHER LACK OF COORDINATION [address] active 10 PAIN IN RIGHT HIP [address] active 11 PURE HYPERCHOLESTEROLEMIA , UNSPECIFIED [address] active 12 SCHIZOAFFECTIVE DISORDER, UNSPECIFIED [address] active 13 TYPE 2 DIABETES MELLITUS WITH DIABETIC NEUROPATHY, UNSPECIFIED [address] active 14 TYPE 2 DIABETES MELLITUS WITH HYPEROSMOLARITY WITHOUT NONKETOTIC HYPERGLYCEMIC-HYPERO SMOLAR COMA ([facility]) [address] active Reason for Referral No Reasons for Referral Entered Social History Social History Observation Description Start Date End Date Code Code System Current Smoking Status Tobacco smoking consumption unknown 063115049 SNOMED CT Sex Assigned At Male 1980 11922-1 [facility] Gender Identity Sexual Orientation Vital Signs Code Code System Vitals Name Values and Units Timing Information 2339-0 LOINC Blood Sugar Mqvml=326.0 Units=mg/dL 12/14/2023 01485-1 LOINC Pain Level Value=0.0 12/14/2023 8310-5 LOINC Body Temperature Value=97.7 Units= F 12/14/2023 9279-1 LOINC Respiratory Rate Value=18.0 Units=/m in 12/11/2023 8462-4 LOINC Blood Pressure-Diastolic Value=74 Un its=mmHg 12/11/2023 8480-6 LOINC Blood Pressure-Systolic Azcrj=297 Un its=mmHg 12/11/2023 8867-4 LOINC Heart rate Value=80.0 Units=/min 01/2024 23030-4 LOINC O2 % BldC Oximetry Value=90.0 Units= % 12/11/2023 06581-4 LOINC Weight Viyth=359.6 Units=Lbs 11/2023 8302-2 LOINC Height Value=68.0 Units=Inches 12/07/2023
--- OUTSIDE RECORDS SUMMARY | 2025-01-04 14:42 | XMS_ITS | Clinical Summary ---
Author Organization [facility] Address [address] [facility] [address] [place] [address] Phone Care Team Providers Care Product Ambassador Name Role Phone Rowena Cedeno MD Primary Care Provider Bruce Ye MD Unavailable [phone] Raymundo Adams MD Unavailable [phone] Ishmael Beckwith MD Unavailable [phone] Matilda Gonzalez DPM Unavailable [phone] Paxton Nance DDS Unavailable [phone] Efraín Lopez DPM Unavailable Renee vailable [...] 18u 15 mL 1 10/05/19 25 Active semaglutide (OZEMPIC) 1 mg/dose (4 mg/3 mL) subcutaneous injection penIndications:T ype 2 diabetes mellitus with stage 4 chronic kidney disease, with long-term current use of insulin,Type 2 diabetes mellitus with hyperglycemia, with long-term current use of insulin Inject 1 mg under the skin once a week. 9 mL 12/15/19 25 Active OZEMPIC 1 mg/dose (4 mg/3 mL) subcutaneous injection penIndications:T ype 2 diabetes mellitus with stage 4 chronic kidney disease, with long-term current use of insulin,Type 2 diabetes mellitus with hyperglycemia, with long-term current use of insulin Inject 1 mg under the skin once a week. 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 The patient has current severe hypoglycemia. [...] Encounters Date Type Department Care Team Description 12/14/2024 Refill [facility] [address] [place] [address] [place] [address] Joyce Hutchinson PA-C Medication Refill 11/21/2024 Refill [facility] [address] [place] [address] [place] [address] Efraín Bhatia DO Medication Refill 10/04/2024 1:20 PM EDT Office Visit [facility] [address] [place] [address] [place] [address] Efraín Bhatia DO Type 2 diabetes mellitus with stage 4 chronic kidney disease, with long-term current use of insulin (Primary Dx); Type 2 diabetes mellitus with hyperglycemia, with long-term current use of insulin from Last 3 Months Family History Medical History Relation Comments Diabetes mellitus Father Diabetes mellitus Paternal Grandfather Diabetes mellitus Paternal Grandmother Diabetes mellitus Paternal Great-Grandmother Diabetes mellitus Sister Relation Status Comments Father Alive Mother Paternal Grandfather Paternal Grandmother Paternal Great-Grandmother Sister Alive Social History Tobacco Use Types Packs/Day Years Used Date Smoking Tobacco: Every Day Cigarettes 2 37.8 Started: 03/31/1987 Smokeless Tobacco: Never Tobacco Cessation:Ready [...] 1:20 PM EST Office Visit [facility] [address] [place] [address] Efraín Bhatia DO [address] [place] [address] [email or web address] Health Maintenance Due Date [...] 5.6 % Other 10/04/2024 1:40 PM EDT us Efraín Bhatia DO LAB POCT ENTER/EDIT ORDERABLES F inal Result * (ABNORMAL) Renal panel (06/15/2024 8:46 AM EDT) Pathologist [facility] SODIUM 134 133 - 146 mmol/L [facility] POTASSIUM 4.9 3.3 - 5.1 mmol/L [facility] Comment:Specimen slightly he molyzed, result may be falsely elevated. CHLORIDE 102 96 - 108 mmol/L [facility] CO2 22 21 - 35 mmol/L [facility] GLUCOSE 188(H) 70 - 99 mg/dL [facility] BUN 36(H) 6 - 19 mg/dL [facility] CREATININE 2.10(H) 0.5 - 1.5 mg/dL [facility] CALCIUM 9.9 8.4 - 10.3 mg/dL [facility] PHOSPHORUS 3.7 2.7 - 4.5 mg/dL [facility] ALBUMIN 4.0 3.9 - 4.8 g/dL [facility] EGFR 39(L) >59 mL/min/1.7 3m2 [facility] Comment:Estimated glomerular filtration rate calculated using the CKD-EPI refit equation. ANION GAP 15 10 - 20 mmol/L [facility] Blood 06/15/2024 8:46 AM EDT 06/15/2024 8:48 AM EDT Efraín Bhatia DO LAB BLOOD BKR ORDERABLES Final R esult [facility] [address] [place] [address] from Last 3 Months or Most Recently Relevant to Health Maintenance [facility] [place] [facility] [place] MED[place] A & B [facility] MEDICARE PART A & B Care Teams Product Ambassador Relationship Specialty Start Date End Date Rowena Cedeno MD [address] [facility] [place] [address] PCP - General Internal Medicine 02/24/23 Bruce Ye MD [address] [facility] [address] [place] [address] Nephrology 04/05/23 Raymundo Adams MD [address] [place] [address] Family Medicine 04/05/23 Ishmael Beckwith MD [address] [place] [address] [address] [address] [email or web address] 04/05/23 Matilda Gonzalez DPM [address] [place] [address] Podiatry 04/05/23 Paxton Nance DDS [address] [place] [address] 04/05/23 Efraín Lopez DPM Podiatry 04/05/23 Additional Source Comments The information contained in this document represents components of the legal health record. It is not the complete legal health record.[facility]
== END 2025-01-04 12:01 | disposition home or self-care (01) ==
LOC: HO.HKA 11:44
PROVIDERS: PCP Internal Medicine; Visit Provider Internal Medicine Hypertension Specialist
DX: N18.30 Chronic kidney disease, stage 3 unspecified (principal)
CPT/HCPCS: 99214

== ENCOUNTER → 2025-01-04 11:43 | Outpatient (BNVA) | payer MEDICARE, MEDICAID, SELFPAY | PROVIDERS: PCP Internal Medicine; Visit Provider Internal Medicine Hypertension Specialist | DX: I12.9 Hypertensive chronic kidney disease with stage 1 through stage 4 chronic kidney disease, or unspecified chronic kidney disease (principal); E11.22 Type 2 diabetes mellitus with diabetic chronic kidney disease; N18.32 Chronic kidney disease, stage 3b; Z72.0 Tobacco use; Z79.4 Long term (current) use of insulin; Z79.85 Long-term (current) use of injectable non-insulin antidiabetic drugs; M54.59 Other low back pain; E87.5 Hyperkalemia | CPT/HCPCS: 99212 ==

== ENCOUNTER 2025-01-09 11:39 | Outpatient (AMB) | payer MEDICARE, MEDICAID, SELFPAY ==
--- OUTSIDE RECORDS SUMMARY | 2023-12-16 08:15 | XMS_ITS ---
Author Organization [facility] Address [address] [place] [address] Care Team Providers Care Associate Professor Computer Science Name Role Phone Pao ZHANG, Rowena Garrido Primary Care Provider Un available Matilda Gonzalez Unavailable [phone] Encounters Encounter Location Date Provider Diagnosis [address] [address] 12/16/2023 Matilda Carlos Plan Of Treatment Next Appt Details Provider Name:Matilda Gonzalez , 01/18/2025 02:15:00 PM, [address] [place] [address], [phone], Progress Notes * Matty MCGEEDOB:[birth year] (44 yo M)Acc No.[id number]:12/16/2023 Progress Note Patient: Benjamin PASCALJUSTINSurjitto Provider: Jacky Gonzalez DPM :1980 A ge:43 Y S ex:Male Date:12/16/2023 [facility] [place] Pcp:Antonella Swan Subjective: * Chief Complaints: * [...] Date: 1 Generated for Rukhsana melton/Sylvia/Hans on: 03/11/2024 01:42 PM EST
--- OUTSIDE RECORDS SUMMARY | 2023-12-27 06:15 | XMS_ITS ---
Author Organization [facility] Address [address] [place] [address] Care Team Providers Care Four Corner Former Machine Operator Name Role Phone Pao ZHANG, Rowena Garrido Primary Care Provider Un available Matilda Gonzalez Unavailable [phone] Encounters Encounter Location Date Provider Diagnosis [address] [address] 12/27/2023 Matilda Carlos Plan Of Treatment Next Appt Details Provider Name:Matilda Gonzalez , 01/18/2025 02:15:00 PM, [address] [place] [address], [phone], Progress Notes * Matty MCGEEDOB:[birth year] (44 yo M)Acc No.[id number]:12/27/2023 Progress Note Patient: Benjamin PASCALBRITANYSurjit ANDRADEto Provider: Jacky Gonzalez DPM :1980 A ge:43 Y S ex:Male Date:12/27/2023 [facility] [place] Pcp:Antonella Swan Subjective: * Chief Complaints: * * Medical History: Objective: * Vitals: Assessment: Plan: * Treatment: * Images: * The named appointment provid er may or may not be the originator of this progress note, and it is not deemed complete until electronically signed by the appointment provider. Sign off status: Pending * Provider: Jacky Gonzalez DPM Date: Generated for Rukhsana melton/Sylvia/Hans on: 03/11/2024 01:41 PM EST
--- NOTE | 2025-01-09 12:26 | MHC.PC.OV ---
Vital Signs 01/09/25 12:27 Height 5 ft 8 in Weight 214 lb BMI 32.5 BP 112/80 Blood Pressure Location Rt brachial Position Sitting Respiration 16 Pulse 99 Pulse Source Pulse Oximeter Temp 98.2 F Temp Source Oral Pulse Oximetry (%) 98 Oxygen Delivery Method Room Air Intake Visit Reasons: 3m follow up Intake Note: Pt is here toray for his 3mo. f/u Facepiece Line Supervisor Required: No Mortgage Collector: Present Allergies No Known Allergies Allergy (Verified 01/09/25 12:49) Medication List - Last Reconciled 01/09/25 by [place] Cedeno MD acetaminophen (Tylenol Extra Strength) 500 mg PO Q12H PRN albuterol sulfate 90 mcg/actuation 2 puffs inhalation Q6H PRN clozapine 200 mg PO BEDTIME docusate sodium (Colace) 100 mg PO DAILY empagliflozin 25 mg PO DAILY [Extra depth orthopedic shoes (1 pair) with customized heat molded Multi- density Innersoles (3 pairs) As directed] fenofibrate 160 mg PO DAILY flash glucose scanning reader (AccurICStyle Maria D 2 [place]) As directed flash glucose sensor (FreeStyle Maria D 2 Sensor kit) As directed fluticasone propionate 50 mcg/actuation (Flonase Allergy Relief) 1 spray intranasal BEDTIME 30 days haloperidol 5 mg PO BID hydroxyzine HCl 25 mg PO DAILY insulin degludec (Tresiba U-100 Insulin) 40 units subcut DAILY insulin lispro-aabc (Lyumjev KwikPen U-100 Insulin) 1 sliding scale dose subcut USEASDIRECTD lorazepam 1 mg PO DAILY PRN omega-3 fatty acids 2,000 mg PO BID omeprazole 20 mg PO BID pen needle, diabetic (Comfort EZ Pen [place]) inject insulin twice daily rosuvastatin 5 mg PO DAILY semaglutide (Ozempic) 1 mg subcut TH@0900 sennosides-docusate sodium 8.6-50 mg (Senna-S) 1 tab-cap PO BEDTIME umeclidinium-vilanterol 62.5-25 mcg/actuation (Anoro Ellipta) 1 ea PO DAILY Tobacco use date assessed: 01/09/25 Dental Screening Dental Screen Date: 01/09/25 Did you have a dental visit in the last 12 months?: Yes Did you have a dental problem in the last 6 months where you did not have access to dental care?: No Was dental information given to patient?: Patient has dentist HPI 3m follow up HPI Details 44-year-old male here today for follow-up on his lipids currently taking rosuvastatin 5 mg daily together with [place] 3 fatty acid supplement. States that his appetite has decreased since he was started on Ozempic by his branch customer service representative Dr. Stacy earlier this year. Last fasting lipid check November 2024 showed elevated triglycerides, normal LDL cholesterol and low HDL. He is due now to have his fasting lipid panel repeated. [facility] Medical History Acquired hammer toe deformity of lesser toe of both feet Pre-ulcerative calluses CKD (chronic kidney disease) stage 3, GFR 30-59 ml/min Tinea unguium Type 2 diabetes mellitus with diabetic polyneuropathy CKD (chronic kidney disease) stage 4, GFR 15-29 ml/min Type 2 diabetes mellitus with complication, with long-term current use of insulin Uncontrolled diabetes mellitus with hyperglycemia Hypercalcemia Noncompliance with medication regimen Rash and nonspecific skin eruption Tremor Vitamin D deficiency Mixed dyslipidemia Restrictive airway disease Type 2 diabetes mellitus with other diabetic kidney complication Solitary pulmonary nodule on lung CT Smoker unmotivated to quit Obesity (BMI 30-39.9) Schizoaffective disorder Essential hypertension Surgical History No pertinent past surgical history Family History Father Unknown family medical history Mother Unknown family medical history Brother No problems noted. Sister No problems noted. Social History Housing: Other Housing Other:: usp Alcohol intake: never Patient Tobacco Use Status: Current everyday Tobacco user Cigarette Packs Per Day: 2 e-Cigarette/Vaping Use: Never Used Substance Use Type: Marijuana Advance Directives Date on File: 12/06/23 service: No Current occupational status: disabled Cognitive needs: No Hearing needs: No Vision needs: Yes Questionnaire Thrive Questionnaire Date Thrive assessed: 06/29/24 I am a: Patient What is your living situation today?: I have a steady place to live Within the past 12 months, did the food you bought not last and you didn't have the money to get more?: Never true Within the past 12 months, did you worry whether your food would run out before you got money to buy more?: Never true Do you have trouble paying for medicines?: No Do you have trouble getting transportation to medical appointments?: No Do you have trouble paying your heating and electricity bill?: No Do you have trouble taking care of your child, family member or friend?: No Do you have trouble with day-to-day activities such as bathing, preparing meals, shopping, managing finances, etc.?: No Are you currently unemployed and looking for a job?: No Are you interested in more education?: No Please select the resources that you would like help with: None Currently or been in a relationship where the following occur: I choose not to answer THRIVE Score: 0 WILBERTO-7 AMB Questionnaire WILBERTO-7 Date WILBERTO - 7 assessed: 06/29/24 Source: Developed by Drs. Mauro Lunsford, Kimmie Rizvi, Remy Mora and colleagues, with an educational dale from [employer]. Review of Systems Const Reports no additional complaints Eyes Details: [facility], last diabetes eye exam was July 2024 with no diabetic complications in eye ENT Reports no additional complaints Card Denies chest pain and Denies dyspnea Resp Denies cough, Denies hemoptysis, Denies dyspnea and Denies wheezing GI Denies abdominal pain and Denies heartburn Reports urinary frequency Musc Denies myalgias, Denies arthralgias and Denies joint swelling Skin/Breast Denies rash Neuro Denies Sensory deficit (Neuro) Psych Reports as per HPI Endo Denies heat intolerance Jimmy/Lymph Denies easy bruising Aller/Immun Denies seasonal rhinorrhea and Denies wheezing Physical exam (Primary Care) Vital Signs: Last Vital Signs Temp 98.2 F 01/09/25 12:27 Pulse 99 01/09/25 12:27 Resp 16 01/09/25 12:27 BP 112/80 01/09/25 12:27 Pulse Ox 98 01/09/25 12:27 Oxygen Delivery Method Room Air 01/09/25 12:27 BMI result Body Mass Index 32.5 Tobacco/Smoking Status: Tobacco use Status Tobacco use date assessed 01/09/25 01/09/25 12:37 Patient Tobacco Use Status Current everyday Tobacco 01/09/25 12:29 e-Cigarette/Vaping Use Never Used 01/09/25 12:29 Thrive Assessment: Date of Thrive Assessment Date Thrive assessed 06/29/24 01/09/25 12:29 Currently or been in a relationship where the following occur: I choose not to answer Const Other: Obese, Alert oriented x3, accompanied by caregiver, ambulatory normal gait Orientation/consciousness: patient oriented x3 HENMA Head: Yes normocephalic Face and sinus: Yes face symmetric Mouth: oropharynx normal and moist mucous membranes Eyes General: appearance normal, both eyes and all related structures Neck Neck: Yes normal visual inspection and Yes full ROM Resp Auscultation: clear to auscultation bilaterally Cardio Other: S1-S2 present regular rate and rhythm GI Other: Obese, normal bowel sounds, soft, nontender with no mass palpated Skin General skin exam: no rashes or lesions noted and dry skin Neuro General: patient oriented x3, gait normal, moves all extremities, Normal light touch and pain sensation and no focal motor deficits Cranial nerves: Yes CN's II-XII intact bilaterally Sensory Exam: No Sensory deficit (Neuro) Psych Appearance: grossly normal Mental Status: mental status grossly normal Speech and movement: Normal speech and movement present Affect: normal affect Office Procedures Flu Questionnaire Does the patient have a severe egg allergy?: No Does the patient have severe life threatening allergies?: No Does the patient have a fever or illness today?: No Has the patient ever had Guillain-[place] Syndrome?: No Has the patient ever had any past reaction to a flu shot?: No Immunizations Fluarix 2011-3500 (PF) 45 mcg (15 mcg x 3)/0.5 mL IM syringe Performing Provider: [place] Cedeno MD Performing Location: [facility] Administered by: Francoise Mas CMA on 01/09/25 12:41 Dose Route Admin Location Dispensed Lot Number Expiration Date [facility] Carbon Capture Power Plant Manager 0.5 mL IM Right Deltoid 0.5 mL [id number] 08/24/25 [id number] Just Soles VIS Given Date VIS Provided VIS Publication Date 01/09/25 Single Vaccine 24 Eligibility Eligibility Date Funding Source Not [facility] Eligible 01/09/25 Private Results Reviewed Results Reviewed: Name: Matty Mcgee Age/Sex: 44/M : 1980 Unit#: [id number] Attend Dr: Bruce Ye MD Re12/28/24 Status: DEP REF Location: [facility] Disch: SPEC : [id number] KESHAWN: 12/28/24 STATUS: COMP REQ : [id number] RECD: 12/28/[address]: Bruce Ye MD COMP: 12/28/24 ENTERED: 12/28/24 [facility] DR: [place] Cedeno MD, Genna E. SURFACE WATER MANAGER ORDERED: CBC No Diff COMMENTS: CC; ANSHUL WILLIAMSON SURFACE WATER MANAGER Test Result Flag Reference WBC 8.1 4.8-10.8 X10*3/uL RBC 5.53 4.60-5.80 X10*6/uL HGB 15.3 14.0-18.0 g/dl HCT 45.0 42.0-52.0 % MCV 81.4 80.0-98.0 fL MCH 27.7 27.0-33.0 pg MCHC 34.0 31.0-36.0 g/dl RDW 14.4 11.0-16.0 % PLT 199 160-400 X10*3/uL MPV 10.2 9.4-12.4 fL NRBC Pct Auto 0.0 0.0-0.2 /100WBC NRBC Abs Auto 0.000 0.0-0.012 X10*3/uL Name: Matty Mcgee Age/Sex: 44/M : 1980 Unit#: [id number] Attend Dr: Jayro Castellanos MD Re12/11/24 Status: DEP [facility] Disch: SPEC : [id number] KESHAWN: 12/11/24 STATUS: COMP REQ : [id number] RECD: 12/11/[address]: Zhanna Lowry COMP: 12/11/24 ENTERED: 12/11/24 [facility] DR: Jayro Castellanos MD ORDERED: CMP, MG, CK Total, C Reactive Prot Test Result Flag Reference Sodium 135 135-145 mmol/L Potassium 4.7 3.3-5.1 mmol/L CL 106 96-108 mmol/L CO2 22 22-29 mmol/L Gap 12 12-20 BUN 17 H 9-16 mg/dL Creat 1.76 H 0.5-1.4 mg/dL Estimated CrCl 60.1 eGFR (calculated from the MDRD study equation) and eCrCl (calculated from the Cockcroft-Gault equation) are based on different parameters and may not yield comparable results. If eCrCl result is absurd, please check patient's height/weight. eGFR 42 Chronic Kidney Disease: Estimated GFR < 60 mL/min/1.73m2 Severe Kidney Disease: Estimated GFR < 15 mL/min/1.73m2 Glucose, Random 166 H 60-115 mg/dL CA 9.8 8.4-10.2 mg/dL Magnesium 1.9 1.6-2.6 mg/dL Total Bili 0.2 0.0-1.0 mg/dL AST (GOT) 14 5-37 U/L ALT (GPT) 16 0-40 U/L CK Total 77 38-174 U/L CRP 1.89 H < or = 0.50 mg/dL Protein, Total 7.3 6.5-8.0 g/dL Alb 4.2 3.5-5.0 g/dL Alk Phos 72 39-117 U/L Coding Level of Care Code Est Pt Level 4 (41376) Complex EM visit Add On G2211 Diagnoses Mixed dyslipidemia E78.2 Essential hypertension I10 Type 2 diabetes mellitus with other diabetic kidney complication E11.29 Assessment & Plan Assessment & Plan (1) Mixed dyslipidemia: Code(s): E78.2 - Mixed hyperlipidemia Category: Medical Plan: Fasting lipid panel ordered. Reinforced importance of adhering to healthy eating habits and getting at least 30 minutes of intensity exercise daily. 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 Goal blood pressure less than 130/80. Advised tight control of blood with a hemoglobin A1c to be maintain less than 7%. Continue to avoid NSAIDs, continue with Jardiance 25 mg daily for renal protection. Strongly encouraged to quit smoking but patient with no desire to quit at present time. (3) Type 2 diabetes mellitus with other diabetic kidney complication: Comment: Followed by Dr. Bhatia, with latest hemoglobin A1c at 7.8% on 10/04/2024, with follow-up appointment scheduled in 3 months Code(s): E11.29 - Type 2 diabetes mellitus with other diabetic kidney complication Category: Medical Plan: Currently followed by the clinic calcium, who has him on Jardiance 25 mg daily, 40 units daily and insulin in his lispro sliding scale coverage, as well as Ozempic 1 mg once a week. Flu vaccine given today Orders: Orders Influenza [id number] Immunization Today Z23 - Encounter for immunization Lipid Panel Today E11.29 - Type 2 diabetes mellitus with other diabetic kidney complication, E11.8 - Type 2 diabetes mellitus with unspecified complications, E78.2 - Mixed hyperlipidemia, I10 - Essential (primary) hypertension, Z79.4 - snf (current) use of insulin
[2025-01-09 12:27] VITALS: BP 112/80; PULSE 99; RESP 16; TEMP 36.8; O2SAT 98; BMI 32.5
--- OUTSIDE RECORDS SUMMARY | 2025-01-09 13:42 | XMS_ITS ---
Author Organization [facility] Care Team Providers Care Assistant Professor Of Sociology Name Role Phone Asiya Byers Unavailable Unavailable Yara Paredes Unavailable Unavailable Maeve Garcia Unavailable Unavailable Iva Walker Unavailable Unavailable Mariangel Marx Unavailable Unavailable Meeta Hoff Unavailable Unavailable Deshawn Arredondo Unavailable Unavailable Allergies and adverse reactions No Known Allergies Care Team Name Role Address Phone Organization Dates Yara Paredes PCP [address] [facility] [address], [place], [address], [place] (Office): [facility] 12/07/2023 - 12/14/2023 Asiya Byers [address], [place], [address], [place] (Office): [facility] 12/07/2023 - 12/14/2023 Maeve Garcia [address], [place], [address], [facility] (Office): : [facility] 12/07/2023 - 12/14/2023 Iva Walker [facility] [address], [place], [address], [facility] (Office): [facility] 12/07/2023 - 12/14/2023 Mariangel Araseli [address] [place], [address], [place] (Office): : [facility] 12/07/2023 - 12/14/2023 Meeta Kavya [address] [place] [address], [address], [facility] (Office): [facility] 12/07/2023 - 12/14/2023 Deshawn Arredondo [address] [place] [address], [address], [facility] (Office): : [facility] 12/07/2023 - 12/14/2023 Immunizations Immunization Status Vaccine Details Vaccine Code CodeSystem Date Notes Influenza completed Influenza, split virus, trivalent, injectable, contains preservative lotNumber: [id number] expiry: 08/28/2024 Mfg: seqinus Given 0.5 ml [...] CHRONIC KIDNEY DISEASE, STAGE [address]PECIF[address] active 2 ANXIETY DISORDER, UNSPECIFIED [address] active 3 CHRONIC KIDNEY DISEASE, STAGE 3 (MODERATE) 4 12/06/[address] completed 4 DIFFICULTY IN WALKING, NOT ELSEWHERE CLASSIFIED [address] active 5 ESSENTIAL (PRIMARY) HYPERTENSION [address] active 6 GASTRO-ESOPHAGEAL REFLUX DISEASE WITHOUT ESOPHAGITIS [address] active 7 MUSCLE WEAKNESS (GENERALIZED) [address] active 8 OTHER DISORDERS OF LUNG [address] active 9 OTHER LACK OF COORDINATION [address] active 10 PAIN IN RIGHT HIP [address] active 11 PURE HYPERCHOLESTEROLEMIA , UNSPECIFIED [address] active 12 SCHIZOAFFECTIVE DISORDER, UNSPECIFIED [address] active 13 TYPE 2 DIABETES MELLITUS WITH DIABETIC NEUROPATHY, UNSPECIFIED [address] active 14 TYPE 2 DIABETES MELLITUS WITH HYPEROSMOLARITY WITHOUT NONKETOTIC HYPERGLYCEMIC-HYPERO SMOLAR COMA ([facility]) [address] active Reason for Referral No Reasons for Referral Entered Social History Social History Observation Description Start Date End Date Code Code System Current Smoking Status Tobacco smoking consumption unknown 408328266 SNOMED CT Sex Assigned At Male 1980 [address]-5 [facility] Gender Identity Sexual Orientation Vital Signs Code Code System Vitals Name Values and Units Timing Information 2339-0 LOINC Blood Sugar Snwic=239.0 Units=mg/dL 12/14/2023 91119-2 LOINC Pain Level Value=0.0 12/14/2023 8310-5 LOINC Body Temperature Value=97.7 Units= F 12/14/2023 9279-1 LOINC Respiratory Rate Value=18.0 Units=/m in 12/11/2023 8462-4 LOINC Blood Pressure-Diastolic Value=74 Un its=mmHg 12/11/2023 8480-6 LOINC Blood Pressure-Systolic Lmqsb=740 Un its=mmHg 12/11/2023 8867-4 LOINC Heart rate Value=80.0 Units=/min 01/2024 89003-8 LOINC O2 % BldC Oximetry Value=90.0 Units= % 12/11/2023 51654-3 LOINC Weight Yacyb=276.6 Units=Lbs 11/2023 8302-2 LOINC Height Value=68.0 Units=Inches 12/07/2023
--- OUTSIDE RECORDS SUMMARY | 2025-01-09 13:42 | XMS_ITS | Clinical Summary ---
Author Organization [facility] Address [address] [place] [address] Phone Care Team Providers Care Artillery Or Naval Gunfire Observer Name Role Phone [place] Cedeno MD Primary Care Provider Bruce Ye MD Unavailable + [phone] Raymundo Adams MD Unavailable + [phone] Ishmael Beckwith MD Unavailable [phone] Matilda Gonzalez DPM Unavailable Paxton Nance DDS Unavailable [phone] Efraín Lopez DPM Unavailable Renee vailable [...] feel symptomatic other than lightheadedness in the geological manager hours. The patient has current severe hypoglycemia. [...] Care Team Description 12/14/2024 Refill [facility] [address] [place] [address] Joyce Hutchinson PA-C Medication Refill 11/21/2024 Refill [facility] [address] [place] [address] Efraín Bhatia, Medication Refill from Last 3 Months Family [...] 1:20 PM EST Office Visit [facility] [address] [place] [address] Efraín Bhatia DO [address] [place] [address] [email or web address] Health Maintenance Due Date Last Done Comments [...] on patient's age to complete this topic IPV VACCINES Aged Out No longer eligi ble [...] 10/04/2024 1:40 PM EDT Efraín Bhatia DO LAB POCT ENTER/EDIT ORDERABLES F inal Result * (ABNORMAL) Renal panel (06/15/2024 8:46 AM EDT) SODIUM 134 133 - 146 mmol/L [facility] POTASSIUM 4.9 3.3 - 5.1 mmol/L [facility] Comment:Specimen slightly he molyzed, result may be falsely elevated. CHLORIDE 102 96 - 108 mmol/L [facility] CO2 22 21 - 35 mmol/L [facility] GLUCOSE 188(H) 70 - 99 mg/dL [facility] BUN 36(H) 6 - 19 mg/dL [facility] CREATININE 2.10(H) 0.5 - 1.5 mg/dL [facility] CALCIUM 9.9 8.4 - 10.3 mg/dL [facility] PHOSPHORUS 3.7 2.7 - 4.5 mg/dL [facility] ALBUMIN 4.0 3.9 - 4.8 g/dL [facility] EGFR 39(L) >59 mL/min/1.7 3m2 [facility] Comment:Estimated glomerular filtration rate calculated using the CKD-EPI refit equation. ANION GAP 15 10 - 20 mmol/L [facility] Blood 06/15/2024 8:46 AM EDT 06/15/2024 8:48 AM EDT us Efraín Bhatia DO LAB BLOOD BKR ORDERABLES Final R esult [facility] [address] [place] [address] from Last 3 Months or Most Recently Relevant to Health Maintenance Insurance [facility] MEDICARE PART A & B [place] A [place] [facility] [place] A [place] MEDIC[place] PART A [place] [address] MEDICARE PART A & B Care Teams Artillery Or Naval Gunfire Observer Relationship Specialty Start Date End Date [place] Cedeno MD [address] [place] [address] PCP - General Internal Medicine 02/24/23 Bruce Ye MD [address] [place] [address] Nephrology 04/05/23 Raymundo Adams MD [address] [place] [address] Family Medicine 04/05/23 Ishmael Beckwith MD [address] [place] [address] [address] [address] [email or web address] 04/05/23 Matilda Gonzalez DPM [address] [place] [address] Podiatry 04/05/23 Paxton Nance DDS [address] [place] [address] 04/05/23 Efraín Lopez DPM Podiatry 04/05/23 Additional Source Comments The information contained in this document represents components of the legal health record. It is not the complete legal health record.[facility]
--- OUTSIDE RECORDS SUMMARY | 2025-01-09 13:42 | XMS_ITS | Patient Health Record ---
[facility] Address [address] [place] [address] Care Team Providers Care Handbag Stitcher Name Role Phone Pao ZHANG, Rowena Garrido Primary Care Provider Un available Black, Matilda Unavailable [phone] Allergies No Known Allergies Results Component Value [...] 1 tablet Orally Once a day Not-Taking [place] 3 Active Cleocin-T 1 % 1 application to affected area Externally Twice a day Not-Takin g Trulicity Active PriLOSEC 20 MG 1 capsule Orally Onc e a day; Duration: 30 day(s) Not-Taking Omeprazole 20 MG 1 capsule 30 minutes before morning meal Orally Once a day Active Ogilvie Carbonate 600 MG as directed Ora lly [...] Problem Acquired hammer toe of right foot (6092639098113995 ) Other hammer toe(s) (acquired), right foot (M20.41) Active confirmed Problem Acquired hammer toe of left foot (5820526998535043 ) Other hammer toe(s) (acquired), left foot (M20.42) Active confirmed Problem Polyneuropathy due to diabetes mellitus type I (014142356) Type 1 diabetes mellitus with diabetic polyneuropathy (E10.42) Active confirmed Vital Signs Blood pressure diastolic 80 mm Hg 11/06/2024 Height 5ft8in in 11/06/2024 Blood pressure systolic 139 mm Hg 11/06/2024 Weight 216 lbs 11/06/2024 BMI 32.84 kg/m2 11/06/2024 Procedures Procedure Date Ordered Date Performed Result Body Sit e 87536-RDMLOFS NAIL, 6 OR MORE 01/24/2024 N/A 96023-Ncpeqokv Plate 01/24/2024 N/A 34356-BLOA SKIN LESIONS, OVER 4 01/24/2024 N/A 42354-BQRMGTG NAIL, 6 OR MORE 05/01/2024 N/A 76168-VTOM SKIN LESIONS, OVER 4 05/01/2024 N/A 62282-MMWTLYI NAIL, 6 OR MORE 08/07/2024 N/A 62475-FTHO SKIN LESIONS, OVER 4 08/07/2024 N/A 62524-TNEFIDU NAIL, 6 OR MORE 11/06/2024 N/A 76321-QFLY SKIN LESIONS, OVER 4 11/06/2024 N/A Encounters Encounter Location Date Provider Diagnosis [address] [address] 01/24/2024 Matildajuan Gonzalez Type 1 diabetes mellitus with diabetic polyneuropathy E10.42 ; Tinea unguium B35.1 and Ingrown nail L60.[address] [address] 05/01/2024 Matilda Black Type 1 diabetes mellitus with diabetic polyneuropathy E10.42 ; Other hammer toe(s) (acquired), right foot M20.41 ; Tinea unguium B35.1 and Other hammer toe(s) (acquired), left foot M20.[address] [address] 08/07/2024 Matilda Black Other hammer toe(s) (acquired), right foot M20.41 ; Metatarsalgia, left foot M77.42 ; Type 1 diabetes mellitus with diabetic polyneuropathy E10.42 ; Tinea unguium B35.1 ; Other hammer toe(s) (acquired), left foot M20.42 ; Pain in left foot M79.672 ; Pain in left ankle and joints of left foot M25.572 and Bursitis of intermetatarsal bursa of left foot M77.[address] [address] 11/06/2024 Matilda Black Other hammer toe(s) (acquired), [...] Treatment Pending Test Test Name Order Date 80381-NGPEJBA NAIL, 6 OR MORE 01/07/2012 17432-MDQODQI NAIL, 6 OR MORE 04/11/2012 82847-EQHEXAG NAIL, 6 OR MORE 07/11/2012 17070-ZJCTTIE NAIL, 6 OR MORE 10/03/2012 18327-HFIBKGH NAIL, 6 OR MORE 12/19/2012 97589-ZBZQTXF NAIL, 6 OR MORE 03/23/2013 39889-HFAPKFM NAIL, 6 OR MORE 06/21/2013 93825-LJBSTPV NAIL, 6 OR MORE 09/20/2013 37548-YCTPBRG NAIL, 6 OR MORE 12/07/2013 76642-BXTTKWQ NAIL, 6 OR MORE 03/14/2014 05306-UDZNNQA NAIL, 6 OR MORE 06/20/2014 82424-XASYILX NAIL, 6 OR MORE 08/23/2014 09013-UVWEEDK NAIL, 6 OR MORE 11/22/2014 70960-RURPGVC NAIL, 6 OR MORE 02/13/2015 81941-IDRTSPA NAIL, 6 OR MORE 05/15/2015 11795-FRZUIPH NAIL, 6 OR MORE 08/12/2015 35986-HECILQT NAIL, 6 OR MORE 11/11/2015 89570-UAFMFFL NAIL, 6 OR MORE 02/19/2016 67221-WRKQSXM NAIL, 6 OR MORE 05/21/2016 26569-XSDIZVK NAIL, 6 OR MORE 10/05/2016 10494-XTJFVRU NAIL, 6 OR MORE 01/11/2017 58461-OAHGDWE NAIL, 6 OR MORE 04/12/2017 24280-TJZWZQH NAIL, 6 OR MORE 09/16/2017 32802-YNROTMR NAIL, 6 OR MORE 12/16/2017 34936-WYSZJDW NAIL, 6 OR MORE 03/17/2018 13330-QGOQFSY NAIL, 6 OR MORE 07/14/2018 11525-BYYBXVY NAIL, 6 OR MORE 01/16/2019 66238-JRTRVUX NAIL, 6 OR MORE 08/17/2019 36571-ECLWQNV NAIL, 6 OR MORE 11/20/2019 50309-KFYIUOH NAIL, 6 OR MORE 03/07/2020 85510-ULXKESG NAIL, 6 OR MORE 06/06/2020 15826-RQDIHZQ NAIL, 6 OR MORE 09/12/2020 17613-MUOIDYT NAIL, 6 OR MORE 12/26/2020 29350-UJOSOJI NAIL, 6 OR MORE 04/07/2021 66683-SFZEMVR NAIL, 6 OR MORE 07/07/2021 01877-OQIGNRV NAIL, 6 OR MORE 10/13/2021 92322-LBZRTSD NAIL, 6 OR MORE 01/12/2022 81938-XQEILIP NAIL, 6 OR MORE 06/04/2022 21264-YVPMNDL NAIL, 6 OR MORE 08/24/2022 04686-JCHSANJ NAIL, 6 OR MORE 11/19/2022 04322-MCFJJDJ NAIL, 6 OR MORE 02/08/2023 36899-AHMBGLA NAIL, 6 OR MORE 05/20/2023 55815-DYXEBFH NAIL, 6 OR MORE 09/16/2023 14689-VVSXEWU NAIL, 6 OR MORE 01/24/2024 02540-OHVDIZF NAIL, 6 OR MORE 05/01/2024 51676-CQZRBKQ NAIL, 6 OR MORE 08/07/2024 34884-PFBNDHI NAIL, 6 OR MORE 11/06/2024 24031-Oqmzzwzm Plate 01/24/2024 39920-Gsribjot Plate 08/24/2022 02062-Gzxjwwrb Plate 10/13/2021 06052-Kurlhgzk Plate 07/07/2021 08630-Avmfjgqt Plate 11/22/2014 26458-Qnqiogaq Plate 08/23/2014 44367-Pkzbdqfw Plate 06/20/2014 62406-Oyvcquae Plate 03/14/2014 32832-Dhxanvrl Plate 12/07/2013 94042-Fgmzztaa Plate 09/20/2013 27801-Glxpfhno Plate 06/21/2013 13848-Sltlswgy Plate Each Additional 33649-Dwcnvrmp Plate Each Additional 10/2021 18230, J0702- INJECT or DRAIN, JOINT/BUR SA 06/06/2020 70774-QIZZ SKIN LESIONS, OVER 4 07/08/19 22 48197-TZGM SKIN LESIONS, OVER 4 02/07/20 22 56654-JBRY SKIN LESIONS, OVER 4 12/27/19 94171-BRSB SKIN LESIONS, OVER 4 10/14/19 83398-TGZG SKIN LESIONS, OVER 4 01/13/20 19908-GFAP SKIN LESIONS, OVER 4 08/25/19 72334-OEKC SKIN LESIONS, OVER 4 06/05/19 20870-QZPV SKIN LESIONS, OVER 4 09/16/19 81398-TMKM SKIN LESIONS, OVER 4 05/20/19 99315-TJTN SKIN LESIONS, OVER 4 02/09/20 30695-FSGU SKIN LESIONS, OVER 4 11/20/19 25566-DNRD SKIN LESIONS, OVER 4 01/24/20 64382-GDTP SKIN LESIONS, OVER 4 05/02/19 63473-FJKP SKIN LESIONS, OVER 4 08/08/19 62427-HWQB SKIN LESIONS, OVER 4 11/07/19 49039-FUDR SKIN LESIONS, 2 TO 4 06/07/19 10745-JMUM SKIN LESIONS, 2 TO 4 09/13/19 49111-QJPK SKIN LESIONS, 2 TO 4 03/07/19 21 96547-TZHO SKIN LESIONS, 2 TO 4 11/20/19 20 87481-GDJS SKIN LESIONS, 2 TO 4 08/17/19 64818-TJYY SKIN LESIONS, 2 TO 4 01/17/20 19 86354-PZIP SKIN LESIONS, 2 TO 4 07/15/19 19 73458-GCCF SKIN LESIONS, 2 TO 4 03/17/19 19 60907-ZBHG SKIN LESIONS, 2 TO 4 12/17/19 18 18345-NKFC SKIN LESIONS, 2 TO 4 09/17/19 18 21511-WWFS SKIN LESIONS, 2 TO 4 01/12/20 17 18907-XVRW SKIN LESIONS, 2 TO 4 04/12/19 18 88876-LHIM SKIN LESIONS, 2 TO 4 06/22/19 14 75647-HZDZ SKIN LESIONS, 2 TO 4 09/21/19 14 33562-EZQD SKIN LESIONS, 2 TO 4 12/08/19 14 30978-JCAE SKIN LESIONS, 2 TO 4 03/23/19 14 72948-EWAL SKIN LESIONS, 2 TO 4 10/04/19 13 41068-NQAB SKIN LESIONS, 2 TO 4 07/12/19 13 09910-AWMH SKIN LESIONS, 2 TO 4 03/14/19 15 16125-VXNK SKIN LESIONS, 2 TO 4 06/21/19 15 55397-BNNN SKIN LESION 05/21/2016 61001-EGEN SKIN LESION 10/05/2016 Next Appt Details Provider Name:Matilda Gonzalez , 01/18/2025 02:15:00 PM, [address] [place], [address], Insurance Providers Payer Name Payer Address Payer Phone Subscriber Number Group Number Insured Name Patient Relationship to Insured Coverage Start Date Coverage End Date Medicare National [employer] [address] [place] [address] [id number] FranciscaarMatty penn Self - patient is the insured Medical (General) History Medical History History ICD Code anxiety depression diabetic headaches/migraines high blood pressure psychiatric disorder reflux chicken pox Surgical History Surgery Date(Month/Year) Hospitalization History Reason Date(Month/Year) bad hip [facility] [place]20[place] [facility] cant remember overnight sleep study 12/2014
== END 2025-01-09 13:04 | disposition home or self-care (01) ==
LOC: HO.HMCC 11:40
PROVIDERS: PCP Internal Medicine; Visit Provider Internal Medicine
DX: E78.2 Mixed hyperlipidemia (principal); I10 Essential (primary) hypertension; E11.29 Type 2 diabetes mellitus with other diabetic kidney complication; Z23 Encounter for immunization

== ENCOUNTER → 2025-01-09 11:39 | Outpatient (BNVA) | payer MEDICARE, MEDICAID, SELFPAY | PROVIDERS: PCP Internal Medicine; Visit Provider Internal Medicine | DX: E78.2 Mixed hyperlipidemia (principal); I10 Essential (primary) hypertension; E11.29 Type 2 diabetes mellitus with other diabetic kidney complication; Z13.31 Encounter for screening for depression; Z23 Encounter for immunization | CPT/HCPCS: 90471; 90656; 96127; 99212 ==

== ENCOUNTER 2025-01-29 14:36 | Outpatient (REF) | payer MEDICARE, MEDICAID, SELFPAY ==
--- OUTSIDE RECORDS SUMMARY | 2025-01-29 13:20 | XMS_ITS | Encounter Summary ---
Author Organization [facility] Address [address] [place] [address] Phone Care Team Providers Care Lens Assorter Name Role Phone Rowena Cedeno MD Primary Care Provider Bruce Ye MD Unavailable [phone] Raymundo Adams MD Unavailable [phone] Ishmael eBckwith MD Unavailable [phone] Matilda Gonzalez DPM Unavailable Paxton Nance DDS Unavailable Efraín Lopez DPM Unavailable Renee vailable Reason for Visit * Reason Comments Follow Up Visit Encounter Details Date Type Department Care Team (Late st Contact Info) Description 01/29/2025 1:20 PM EST Office Visit [facility] [address] [place] [address] Efraín Bhatia DO [address] [place] [address] [email or web address] Type 2 diabetes mellitus with stage 4 chronic kidney disease, with long-term current use of insulin (Primary Dx); Type 2 diabetes mellitus with hyperglycemia, with long-term current use of insulin Social History Tobacco Use Types Packs/Day Years Used Date Smoking Tobacco: Every Day Cigarettes 2 37.8 Started: 03/31/1987 Passive Smoke Exposure: Current Smokeless Tobacco: Never Tobacco Cessation:Ready to Q [...] on file Sexual Orientation Not on file documented as of this encounter Last Filed Vital Signs Vital Sign Reading Time Taken Comments Blood Pressure 110/78 01/29/2025 1:18 PM EST Pulse 100 01/29/2025 1:18 PM EST Temperature - - Respiratory Rate 20 01/29/2025 1:18 PM EST Oxygen Saturation 99% 01/29/2025 1:18 PM EST Inhaled Oxygen Concentration - - Weight 97.7 kg (215 lb 6.4 oz) 01/29/2025 1:18 P M EST Height - - Body Mass Index 32.75 06/14/2024 12:02 PM EDT documented in this encounter Patient Instructions * Patient Instructions* Efraín Bhatia DO - 01/29/2025 1:20 PM EST Please schedule the follow-up visit on the way out. Decrease Tresiba to 35 units. Continue Ozempic and Jardiance. Follow the following correction scale for breakfast INJECT ONCE DAILY WITH BREAKFAST BEFORE eating VIA sliding scale 70-100 6u; 101-150 8u; 151-200 10u; 201-250 12u; 251-300 14u; 301-350 16u; 351-400; 18u; >400 20u documented in this encounter Progress Notes * Efraín Bhatia DO - 01/29/2025 1:20 PM EST Images from the original note were not included. Presenting Complaint: 1. Type 2 diabetes mellitus with stage 4 chronic kidney disease, with long-term current use of insulin 2. Type 2 diabetes mellitus with hyperglycemia, with long-term current use of insulin History of Present Illness: 44-year-old man with multiple medical problems including hypertension, hyperlipidemia, obesity, diabetes mellitus type 2. He does not recall exactly when he was diagnosed with diabetes mellitus but Isuspect there was a long time because he is has already developed CKD stage IV. He has not been diagnosed with neuropathy. He has not had stroke or myocardial infarction. No history of microvascular disease. He was last seen on 10/04/2024 and now presents for follow of diabetes mellitus. Currently he is taking Tresiba 40 units, Jardiance 25 mg on the last visit I prescribed Ozempic 1 mg. Humalog correction scale 70-100 = 4 units increasing by 2 units every 50 mg/dL. Repeat hemoglobin A1c on 01/29/2025 shows hemoglobin A1c of 7.6% previously 7.8%. The patient states that he only has breakfast which is around 5:15 AM and he has tunafish and coffee with 6 sugars. Then he has lunch around 11 or 12 noon. Does not eat anything afterwards. He goes to bed at 4 to 5 PM and his glucose levels start going down. He does not eat anything that even a snack at that point. He still having postprandial hyperglycemia but he is administering insulin now before the meal based on the correction scale. So at this point he probably needs less Tresiba so that he does not go low in the early mornings or late at night. But he needs a higher correction scale because he still has postprandial hyperglycemia despite administering insulin before the meal. Tunafish did not increase his glucose so much but is probably the coffee with sugar. He did lab work on 06/15/2024 and the lipid panel showed LDL 57 triglycerides 203 HDL 27, hemoglobinof 14.4 hematocrit 43.5, GFR is 39. Urine microalbumin creatinine ratio was elevated at 400 when last checked on 06/06/2024. Medication: Pre-Procedure Instructions: Medication Instructions acetaminophen (TYLENOL) 500 MG tablet albuterol 90 mcg/actuation inhaler ALCOHOL PREP PADS PadM cloZAPine (CLOZARIL) 200 MG tablet docusate sodium (COLACE) 50 MG capsule empagliflozin (JARDIANCE) 25 mg tablet fenofibrate (LOFIBRA) 160 MG tablet ferrous furamate 324 mg (106 mg elemental) Tab fluticasone propionate (FLONASE) 50 mcg/actuation nasal spray haloperidoL (HALDOL) 5 MG tablet hydrOXYzine (ATARAX) 25 MG tablet insulin degludec U-100 (TRESIBA) injection pen insulin lispro (HUMALOG KWIKPEN INSULIN) 100 unit/mL injection pen LORazepam (ATIVAN) 1 MG tablet losartan (COZAAR) 25 MG tablet omega-3 fatty acids-fish oil 340-1,000 mg Cap omeprazole (PRILOSEC) 20 mg TbEC rosuvastatin (CRESTOR) 5 MG tablet semaglutide (OZEMPIC) 1 mg/dose (4 mg/3 mL) subcutaneous injection pen TRUE COMFORT SAFETY PEN NEEDLE 32 gauge x 5/32 Ndle umeclidinium-vilanteroL (ANORO ELLIPTA) 62.5-25 mcg/actuation diskus inhaler No current facility-administered medications for this visit. Lab Data: Office Visit on 01/29/2025 Component Date Value Ref Range Status Hemoglobin A1c 01/29/2025 7.6 (*) 4.2 - 5.6 % Final Physical Exam: Vital Signs: Vitals: 01/29/25 1318 BP: 110/78 Pulse: 100 Resp: 20 SpO2: 99% body mass index is 32.75 kg/m??. Weight: [97.7 kg (215 lb 6.4 oz)] 97.7 kg (215 lb 6.4 oz) (01/29 1318) Gen. Exam: Impression: 1. Type 2 diabetes mellitus with stage 4 chronic kidney disease, with long-term current use of insulin (Primary) Assessment & Plan: He tends to have low glucose in the evening but he does not eat after 12 PM and goes to bed at 4 to5 PM. 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 So I am going to decrease the Tresiba again down to 35 units. He has postprandial hyperglycemia after breakfast so I am increasing the correction scale by 2 units. The new correction scale is going to start at 70-100 equals6 units. He should continue Jardiance and Ozempic. He is doing much better in terms of insulin administration because he is administering the insulin before the meal. He has very high sugars after breakfast because of the amount of sugar that he puts in his coffee. So I can do is just increased herinsulin to cover it. Orders: - POCT Hemoglobin A1c (Enter/Edit) - insulin degludec U-100 (TRESIBA) injection pen Dispense: 45 mL; Refill: 1 - insulin lispro (HUMALOG KWIKPEN INSULIN) 100 unit/mL injection pen Dispense: 15 mL; Refill: 1 - semaglutide (OZEMPIC) 1 mg/dose (4 mg/3 mL) subcutaneous injection pen Dispense: 9 mL; Refill: 0 - Lipid Panel - Microalbumin/Creatinine Ratio, Random Urine - Hemoglobin A1c - Basic Metabolic Panel (BMP) 2. Type 2 diabetes mellitus with hyperglycemia, with long-term current use of insulin - insulin degludec U-100 (TRESIBA) injection pen Dispense: 45 mL; Refill: 1 - insulin lispro (HUMALOG KWIKPEN INSULIN) 100 unit/mL injection pen Dispense: 15 mL; Refill: 1 - semaglutide (OZEMPIC) 1 mg/dose (4 mg/3 mL) subcutaneous injection pen Dispense: 9 mL; Refill: 0 - Lipid Panel - Microalbumin/Creatinine Ratio, Random Urine - Hemoglobin A1c - Basic Metabolic Panel (BMP) Return in about 3 months (around 04/29/2025) for Diabetes. I have maintained a longitudinal relationship with the patient, overseeing the care of of their diabetes mellitus. This has significantly influence my decision-making and treatment plans during today's encounter. Efraín Bhatia DO documented in this encounter Miscellaneous Notes * Assessment & Plan Note - Efraín Bhatia DO - 01/29/2025 1:54 PM ESTAssociated Problem(s): Type 2 diabetes mellitus with stage 4 chronic kidney disease, with long-termcurrent use of insulin He tends to have low glucose in the evening but he does not eat after 12 PM and goes to bed at 4 to5 PM. 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 So I am going to decrease the Tresiba again down to 35 units. He has postprandial hyperglycemia after breakfast so I am increasing the correction scale by 2 units. The new correction scale is going to start at 70-100 equals6 units. He should continue Jardiance and Ozempic. He is doing much better in terms of insulin administration because he is administering the insulin before the meal. He has very high sugars after breakfast because of the amount of sugar that he puts in his coffee. So I can do is just increased herinsulin to cover it. documented in this encounter Plan of Treatment Upcoming Encounters Date Type Department Care Team (Late st Contact Info) Description 05/23/2025 11:10 AM EDT Office Visit [facility] [address] [place] [address] Efraín Bhatia DO [address] [place] [address] [email or web address] Scheduled Orders Name Type Priority Associated Diagnoses Orde r Schedule Lipid Panel Lab Routine Type 2 diabetes mellitus with stage 4 chronic kidney disease, with long-term current use of insulin Type 2 diabetes mellitus with hyperglycemia, with long-term current use of insulin Expected: 04/29/2025, Expires: 10/30/2025 Microalbumin/Creatinine Ratio, Random Urine Lab Routine Type 2 diabetes mellitus with stage 4 chronic kidney disease, with long-term current use of insulin Type 2 diabetes mellitus with hyperglycemia, with long-term current use of insulin Expected: 04/29/2025, Expires: 10/30/2025 Hemoglobin A1c Lab Routine Type 2 diabetes mellitus with stage 4 chronic kidney disease, with long-term current use of insulin Type 2 diabetes mellitus with hyperglycemia, with long-term current use of insulin Expected: 04/29/2025, Expires: 10/30/2025 Basic Metabolic Panel (BMP) Lab Routine Type 2 diabetes mellitus with stage 4 chronic kidney disease, with long-term current use of insulin Type 2 diabetes mellitus with hyperglycemia, with long-term current use of insulin Expected: 04/29/2025, Expires: 10/30/2025 documented as of this encounter Procedures Procedure Name Priority Date/Time Associated Diagnosis Comments POCT HEMOGLOBIN A1C Routine 01/29/2025 1 :36 PM EST Type 2 diabetes mellitus with stage 4 chronic kidney disease, with long-term current use of insulin documented in this encounter Results * (ABNORMAL) POCT Hemoglobin A1c (Enter/Edit) (01/29/2025 1:36 PM EST) Hemoglobin A1c 7.6(A) 4.2 - 5.6 % 01/29/2025 1:36 PM EST [facility] LAB POCT ENTER/EDIT ORDERABLES F inal Result documented in this encounter Visit Diagnoses Diagnosis Type 2 diabetes mellitus with stage 4 chronic kidney disease, with long-term current use of insulin- Primary Type 2 diabetes mellitus with hyperglycemia, with long-term current use of insulin documented in this encounter Care Teams Lens Assorter Relationship Specialty Start Date End Date Rowena Cedeno MD [address] [place] [address] [place] [address] PCP - General Internal Medicine 02/24/23 Bruce Ye MD [address] [address] Nephrology 04/05/23 Raymundo Adams MD [address] [place] [address] Family Medicine 04/05/23 Ishmael Beckwith MD [address] [place] [address] Dr [address]aley [email or web address] [address] [email or web address] 04/05/23 Matilda Gonzalez DPM [address] [place] [address] Podiatry 04/05/23 Paxton Nance DDS [address] [place] [address] 04/05/23 Efraín Lopez DPM Podiatry 04/05/23 documented as of this encounter Additional Source Comments The information contained in this document represents components of the legal health record. It is not the complete legal health record.[facility]
[2025-01-29 16:10] LABS: MANUAL DIFF FLAG NO
[2025-01-29 16:28] LABS: Hematocrit 44.1 % (42.0-52.0); Hemoglobin 15.6 g/dl (14.0-18.0); Imm Gran Abs Auto 0.04 X10*3/uL (0.00-0.03); Imm Gran Pct Auto 0.5 % (0.0-0.4); Lymphocytes Absolute Auto 2.2 X10*3/uL (1.2-4.9); Mean Corpuscular HGB Conc 35.4 g/dl (31.0-36.0); Mean Corpuscular Hemoglobin 27.8 pg (27.0-33.0); Mean Corpuscular Volume 78.5 fL (80.0-98.0); NRBC Abs Auto 0.000 X10*3/uL (0.0-0.012); NRBC Pct Auto 0.0 /100WBC (0.0-0.2); Platelet Count 215 X10*3/uL (160-400); Red Blood Count 5.62 X10*6/uL (4.60-5.80); White Blood Count 8.1 X10*3/uL (4.8-10.8)
--- OUTSIDE RECORDS SUMMARY | 2025-01-29 17:53 | XMS_ITS | Clinical Summary ---
Author Organization [facility] Address [address] [facility] [address] [place] [address] Phone Care Team Providers Care Crystal Cutter Name Role Phone Rowena Cedeno MD Primary Care Provider Bruce Ye MD Unavailable + [phone] Raymundo Adams MD Unavailable [phone] Ishmael Beckwith MD Unavailable [phone] Matilda Gonzalez DPM Unavailable Paxton Nance DDS Unavailable [phone] Efraín Lopez DPM Unavailable Renee vailable [...] with long-term current use of insulin Inject 35 Units under the skin nightly at bedtime. 45 mL 1 5 Active insulin lispro (HUMALOG KWIKPEN INSULIN) [...] 14u; 301-350 16u; 351-400; 18u; >400 20u 15 mL 1 5 Active semaglutide (OZEMPIC) 1 mg/dose (4 mg/3 mL) subcutaneous injection penIndications:T ype 2 diabetes mellitus with stage 4 chronic kidney disease, with long-term current use of insulin,Type 2 diabetes mellitus with hyperglycemia, with long-term current use of insulin Inject 1 mg under the skin once a week. 9 mL 5 Active insulin degludec U-100 (TRESIBA) injection penIndications:T ype 2 diabetes mellitus with stage 4 chronic kidney disease, with long-term current use of insulin,Type 2 diabetes mellitus with hyperglycemia, with long-term current use of insulin Inject 40 Units under the skin nightly at bedtime. 45 mL 1 5 01/30/20 25 Discontin ued(Reord er) insulin lispro (HUMALOG [...] 16u; >400 18u 15 mL 1 5 01/30/20 25 Discontin ued(Reord er) semaglutide (OZEMPIC) 1 mg/dose (4 mg/3 mL) subcutaneous injection penIndications:T ype 2 diabetes mellitus with stage 4 chronic kidney disease, with long-term current use of insulin,Type 2 diabetes mellitus with hyperglycemia, with long-term current use of insulin Inject 1 mg under the skin once a week. 9 mL 5 01/30/20 25 Discontin ued(Reord er) Active Problems Problem Noted Date Diagnosed Date Type 2 diabetes mellitus wit h stage 4 chronic kidney disease, with long-term current use of insulin 05/03/2023 Assessment & Plan (01/29/2025 1:54 PM EST): He tends to have low glucose in the evening but he does not eat after 12 PM and goes to bed at 4 to 5 PM. 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 So I am going to decrease the Tresiba again down to 35 units. He has postprandial hyperglycemia after breakfast so I am increasing the correction scale by 2 units. The new correction scale is going to start at 70-100 equals 6 units. He should continue Jardiance and Ozempic. He is doing much better in terms of insulin administration because he is administering the insulin before the meal. He has very high sugars after breakfast because of the amount of sugar that he puts in his coffee. So I can do is just increased her insulin to cover it. Assessment & Plan (10/04/2024 1:44 PM EDT): [...] feel symptomatic other than lightheadedness in the programmer operator numerical control hours. The patient has current severe hypoglycemia. [...] Encounters Date Type Department Care Team Description 01/29/2025 1:20 PM EST Office Visit [facility] [address] [place] [address] Efraín Bhatia DO Type 2 diabetes mellitus with stage 4 chronic kidney disease, with long-term current use of insulin (Primary Dx); Type 2 diabetes mellitus with hyperglycemia, with long-term current use of insulin 12/14/2024 Refill [facility] [address] [place] [address] Joyce Hutchinson PA-C Medication Refill 11/21/2024 Refill [facility] [address] [place] [address] Efraín Bhatia DO Medication Refill from Last [...] oz) 01/29/2025 1:18 P M EST Height 172.7 cm (5' 8 ) 06/14/2024 12:02 PM EDT Body Mass Index 32.75 06/14/2024 12:02 PM EDT Plan of Treatment Upcoming Encounters Date Type Department Care Team (Late st Contact Info) Description 05/23/2025 11:10 AM EDT Office Visit [facility] [address] [place] [address] Efraín Bhatia DO [address] [place] [address] [email or web address] Health Maintenance Due Date Last Done Comments [...] - season) 2024 BLOOD PRESSURE 04/06/2025 10/04/2024 SMOKING Hx and SMOKELESS TOBACCO SCREENING 06/14/2025 06/14/2024 CREATININE LEVEL 06/15/2025 06/15/2024 POTASSIUM LEVEL 06/15/2025 06/15/2024 HEMOGLOBIN A1C 07/30/2025 01/29/2025, 08/0 07/2024, 06/15/2024, Additional history exists HEPATITIS A VACCINES Aged Out No long [...] Maintenance Results * (ABNORMAL) POCT Hemoglobin A1c (Enter/Edit) (01/29/2025 1:36 PM EST) Hemoglobin A1c 7.6(A) 4.2 - 5.6 % 01/29/2025 1:36 PM EST Efraín Bhatia LAB POCT ENTER/EDIT ORDERABLES F inal Result * (ABNORMAL) Renal panel (06/15/2024 8:46 AM EDT) SODIUM 134 133 - 146 mmol/L [facility] POTASSIUM 4.9 3.3 - 5.1 mmol/L [facility] Comment:Specimen slightly he molyzed, result may be falsely elevated. CHLORIDE 102 96 - 108 mmol/L [facility] CO2 22 21 - 35 mmol/L [facility] GLUCOSE 188(H) 70 - 99 mg/dL [facility] BUN 36(H) 6 - 19 mg/dL [facility] CREATININE 2.10(H) 0.5 - 1.5 mg/dL [facility] CALCIUM 9.9 8.4 - 10.3 mg/dL [facility] PHOSPHORUS 3.7 2.7 - 4.5 mg/dL [facility] ALBUMIN 4.0 3.9 - 4.8 g/dL [facility] EGFR 39(L) >59 mL/min/1.7 3m2 [facility] Comment:Estimated glomerular filtration rate calculated using the CKD-EPI refit equation. ANION GAP 15 10 - 20 mmol/L [facility] Blood 06/15/2024 8:46 AM EDT 06/15/2024 8:48 AM EDT us Efraín Bhatia DO LAB BLOOD BKR ORDERABLES Final R esult [facility] [address] [place] [address] from Last 3 Months or Most Recently Relevant to Health Maintenance Insurance [facility] MEDICARE PART A & B [place] MEDIC[place] PART A & B [facility] & [place] B [facility] MEDICARE PART A & B Care Teams Crystal Cutter Relationship Specialty Start Date End Date Rowena Cedeno MD [facility] [place] [address] PCP - General Internal Medicine 02/24/23 Bruce Ye MD [address] [place] [address] Nephrology 04/05/23 Raymundo Adams MD [address] [place] [address] [place] [address] Family Medicine 04/05/23 Ishmael Beckwith MD [address] [place] [address] Dr [address] [address] [email or web address] Nephrology 04/05/23 Matilda Gonzalez DPM [address] [place] [address] Podiatry 04/05/23 Paxton Nance DDS [address] [place] [address] 04/05/23 Efraín Lopez DPM Podiatry 04/05/23 Additional Source Comments The information contained in this document represents components of the legal health record. It is not the complete legal health record.[facility]
== END 2025-01-29 14:37 | disposition home or self-care (01) ==
LOC: HO.HMGCLR 14:36
PROVIDERS: PCP Internal Medicine
DX: Z79.899 Other long term (current) drug therapy (principal)
CPT/HCPCS: 36415; 85025

== ENCOUNTER 2025-02-28 09:58 | Outpatient (REF) | payer MEDICARE, MEDICAID, SELFPAY ==
--- OUTSIDE RECORDS SUMMARY | 2023-12-16 08:15 | XMS_ITS ---
Author Organization [facility] Address [address] [place] [address] Care Team Providers Care Drilling Field Operator Name Role Phone Pao ZHANG, Rowena Garrido Primary Care Provider Un available CarlosDamionMatilda Unavailable [phone] Encounters Encounter Location Date Provider Diagnosis [address] [address] 12/16/2023 Matilda Carlos Plan Of Treatment Next Appt Details Provider Name:Matilda Gonzalez , 06/04/2025 02:00:00 PM, [address] [place] [address], [phone], Progress Notes * ARELYMattyDOB:[birth year] (45 yo M)Acc No.[id number]:12/16/2023 Progress Note Patient: Surjit SPARROWto Provider: Jacky Gonzalez DPM :1980 A ge:43 Y S ex:Male Date:12/16/2023 [facility] [place] Pcp:Antonella Swan Subjective: * Chief Complaints: * * Medical History: Objective: * Vitals: Assessment: Plan: * Treatment: * Images: * The named appointment provid er may or may not be the originator of this progress note, and it is not deemed complete until electronically signed by the appointment provider. Sign off status: Pending * Provider: Jacky Gonzalez DPM Date: 1 Generated for Rukhsana melton/Sylvia/Hans on: 1 10:55 AM EST
--- OUTSIDE RECORDS SUMMARY | 2023-12-27 06:15 | XMS_ITS ---
Author Organization [facility] Address [address] [place] [address] Care Team Providers Care Entry Level Software Developer Name Role Phone Pao ZHANG, Rowena Garrido Primary Care Provider Un available Damion Gonzalezmie Unavailable [phone] Encounters Encounter Location Date Provider Diagnosis [address] [address] 12/27/2023 Matilda Carlos Plan Of Treatment Next Appt Details Provider Name:Matilda Gonzalez , 06/04/2025 02:00:00 PM, [address] [place] [address], [address], Progress Notes * ARELYMattyDOB:[birth year] (45 yo M)Acc No.[id number]:12/27/2023 Progress Note Patient: Surjit SPARROWto Provider: Jacky Gonzalez DPM :1980 A ge:43 Y S ex:Male Date:12/27/2023 [facility] [place] Pcp:Antonella Swan Subjective: * Chief Complaints: * [...] 1 Generated for Rukhsana melton/Sylvia/Hans on: 1 10:56 AM EST
--- OUTSIDE RECORDS SUMMARY | 2025-01-18 09:15 | XMS_ITS ---
Author Organization [facility] Address [address] [place] [address] Care Team Providers Care National Sales Executive Name Role Phone Pao ZHANG, Rowena Garrido Primary Care Provider Un available Carlos Matilda Unavailable [phone] Hinds Encounters Encounter Location Date Provider Diagnosis [address] [address] 01/18/2025 Matilda Gonzalez Plan Of Treatment Next Appt Details Provider Name:Matilda Gonzalez , 06/04/2025 02:00:00 PM, [address] [place] [address], [phone], Progress Notes * Matty MCGEEDOB:[birth year] (45 yo M)Acc No.[id number]:01/18/2025 Progress Note Patient: Benjamin PASCALBRITANYSurjit ANDRADEto Provider: Jacky Gonzalez DPM :1980 A ge:44 Y S ex:Male Date:01/18/2025 Address: [place], [place] Pcp:Antonella Swan Subjective: * Chief Complaints: * [address] Hinds. * Medical History: Objective: * Vitals: Assessment: Plan: * Treatment: * Images: * The named appointment provid er may or may not be the originator of this progress note, and it is not deemed complete until electronically signed by the appointment provider. Sign off status: Pending * Provider: Jacky Gonzalez DPM Date: 1 03/20/2024 Generated for Rukhsana Villa/Hans on: 10:55 AM EST
--- OUTSIDE RECORDS SUMMARY | 2025-02-28 10:56 | XMS_ITS | Clinical Summary ---
Author Organization [facility] Address [address] [facility] [address] [place] [address] Phone Care Team Providers Care Marketing Database Consultant Name Role Phone Rowena Cedeno MD Primary Care Provider Bruce Ye MD Unavailable [phone] Raymundo Adams MD Unavailable [phone] Ishmael Beckwith MD Unavailable [phone] Matilda Gonzalez DPM Unavailable Paxton Nance DDS Unavailable [phone] Efraín Lopez DPM Unavailable Renee vailable [...] the skin once a week. 9 mL Active Active Problems Problem Noted Date Diagnosed [...] tends to have low glucose in the technology strategist before waking. So I am going to [...] feel symptomatic other than lightheadedness in the technology strategist hours. The patient has current severe hypoglycemia. [...] Description 01/29/2025 1:20 PM EST Office Visit [facility] [address] [place] [address] [place] [address] Efraín Bhatia DO Type 2 diabetes mellitus with stage 4 chronic kidney disease, with long-term current use of insulin (Primary Dx); Type 2 diabetes mellitus with hyperglycemia, with long-term current use of insulin 12/14/2024 Refill [facility] [address] [place] [address] [place] [address] Joyce Hutchinson PA-C Medication Refill from Last 3 Months Family History Medical History Relation Comments Diabetes mellitus Father Diabetes mellitus Paternal Grandfather Diabetes mellitus Paternal Grandmother Diabetes mellitus Paternal Great-Grandmother Diabetes mellitus Sister Relation Status Comments Father Alive Mother Paternal Grandfather Paternal Grandmother Paternal Great-Grandmother Sister Alive Social History Tobacco Use Types Packs/Day Years Used Date Smoking Tobacco: Every Day Cigarettes 2 37.9 Started: 03/31/1987 Passive Smoke Exposure: Current Smokeless [...] Description 05/23/2025 11:10 AM EDT Office Visit [facility] [address] [place] [address] Efraín Bhatia DO [address] [place] [address] [email or web address] Health Maintenance Due Date Last Done Comments [...] (#1) 2024 COVID-19 VACCINE ( season) 2024 CREATININE LEVEL 06/15/2025 06/15/2024 POTASSIUM LEVEL 06/15/2025 06/15/2024 BLOOD PRESSURE 07/30/2025 01/29/2025 HEMOGLOBIN A1C 07/30/2025 01/29/2025, 08/0 07/2024, 06/15/2024, Additional history exists SMOKING Hx and SMOKELESS TOBACCO SCREENING 01/29/2026 01/29/2025 HEPATITIS A VACCINES Aged Out No long [...] - 5.6 % 01/29/2025 1:36 PM EST us Efraín Bhatia DO LAB POCT ENTER/EDIT ORDERABLES F inal Result * (ABNORMAL) Renal panel (06/15/2024 8:46 AM EDT) SODIUM 134 133 - 146 mmol/L [facility] POTASSIUM 4.9 3.3 - 5.1 mmol/L [facility] Comment:Specimen slightly he molyzed, result may be falsely elevated. CHLORIDE 102 96 - 108 mmol/L [facility] CO2 22 21 - 35 mmol/L [facility] GLUCOSE 188(H) 70 - 99 mg/dL [facility] BUN 36(H) 6 - 19 mg/dL [facility] CREATININE 2.10(H) 0.5 - 1.5 mg/dL [facility] CALCIUM 9.9 8.4 - 10.3 mg/dL [facility] PHOSPHORUS 3.7 2.7 - 4.5 mg/dL [facility] ALBUMIN 4.0 3.9 - 4.8 g/dL [facility] EGFR 39(L) >59 mL/min/1.7 3m2 [facility] Comment:Estimated glomerular filtration rate calculated using the CKD-EPI refit equation. ANION GAP 15 10 - 20 mmol/L [facility] Blood 06/15/2024 8:46 AM EDT 06/15/2024 8:48 AM EDT Efraín Bhatia DO LAB BLOOD BKR ORDERABLES Final R esult [facility] [address] [place] [address] from Last 3 Months or Most Recently Relevant to Health Maintenance Insurance [facility] MEDICARE PART A & B [facility] MEDIC[facility] PART A & B [place] B [facility]IC[facility] PART A & B [facility] MEDICARE PART A & B [facility] MEDICARE PART A & B Care Teams Marketing Database Consultant Relationship Specialty Start Date End Date Rowena Cedeno MD [address] [place] [address] [place] [address] PCP - General Internal Medicine 02/24/23 Bruce Ye MD [address] [address] Nephrology 04/05/23 Raymundo Adams MD [address] [place], [place] [address] [address] Family Medicine 04/05/23 Ishmael Beckwith MD [address] [place] [address] Dr [address] [address] [email or web address] 04/05/23 Matilda Gonzalez DPM [address] [place] [address] Podiatry 04/05/23 Paxton Nance DDS [address] [place] [address] 04/05/23 Efraín Lopez DPM Podiatry 04/05/23 Additional Source Comments The information contained in this document represents components of the legal health record. It is not the complete legal health record.[facility]
--- OUTSIDE RECORDS SUMMARY | 2025-02-28 10:56 | XMS_ITS | Patient Health Record ---
Author Organization [facility] Address [address] [facility] [place] [address] Care Team Providers Care Balcony Worker Name Role Phone Pao ZHANG, Rowena Garrido Primary Care Provider Un available Black, Matilda Unavailable [phone] Allergies No Known Allergies Results Component Value Reference Range Notes HEMOGLOBIN A1C (GLYCOHEMOGLO BIN) Reviewed date:11/06/2024 01:33:18 PM Interpretation: Performing Lab: Notes/Report: HEMOGLOBIN A1C % (HH) 8.2 Reason For Referral No Information Medications Medication SIG (Take, Route, Frequency, Duration) Notes Start Date End Date Status Anoro Ellipta 62.5-25 MCG/ACT 1 puff Inhalation [...] morning meal Orally Once a day Active [place] Carbonate 600 MG as directed Ora lly Twice a day Not-Taking Trulicity Active PriLOSEC 20 MG 1 capsule Orally Onc e a day; Duration: 30 day(s) Not-Taking [place] 3 Active hydrOXYzine HCl 25 MG as directed Orally Active Tylenol Not-Taking Lantus Not-Taking Ozempic Active Vitamin D Not-Taking Albuterol Sulfate Ac tive PriLOSEC Not-Taking Flonase Active Glucophage 1000 MG 1 tablet with meals Orally Twice a day; Duration: 30 day(s) Not-Taking Clozaril 200 MG 1 tablet Orally [...] (M20.41,M20.42), Preulcerative Skin Lesion(s) (L85.1) 03/31/2022 Active Fenofibrate 160 MG as directed Active Extra Depth Orthopedic Shoes (1 Pair) with Customized Heat Molded Multidensity Innersoles (3 Pair) as directed Dx: NIDDM/Polyneuropathy (E11.42), Hammertoe Foot Deformity (M20.41,M20.42), Preulcerative Skin Lesion(s) (L85.1 05/01/2024 Active Cleocin-T 1 % 1 application to affected area Externally Twice a day Not-Takin g Losartan Potassium 25 MG 1 tablet Orally Once a day Not-Taking traZODone HCl Active Benadryl Not-Taking Colace 100 MG 1 capsule as needed Orally Once a day; Duration: 30 day(s) Active Vascepa Not-Taking Haldol Active Hydrocortisone 2.5 % as directed Externa lly to feet Twice a day; Duration: 30 days Not-Taking Ativan 1 MG as directed Active Invokana Not-Taking Immunizations Vaccine Route Administration Date Status [...] Problem Acquired hammer toe of right foot (0375742202730561 ) Other hammer toe(s) (acquired), right foot (M20.41) Active confirmed Problem Acquired hammer toe of left foot (5214745370595077 ) Other hammer toe(s) (acquired), left foot (M20.42) Active confirmed Problem Polyneuropathy due to diabetes mellitus type I (549352883) Type 1 diabetes mellitus with diabetic polyneuropathy (E10.42) Active confirmed Vital Signs Blood pressure diastolic 78 mm Hg 02/19/2025 Height 5ft8in in 02/19/2025 Blood pressure systolic 139 mm Hg 02/19/2025 Weight 216 lbs 02/19/2025 BMI 32.84 kg/m2 02/19/2025 Procedures Procedure Date Ordered Date Performed Result Body Sit e 96503-QLINFRJ NAIL, 6 OR MORE 05/01/2024 N/A 71964-MJOW SKIN LESIONS, OVER 4 05/01/2024 N/A 11772-CDIGRGW NAIL, 6 OR MORE 08/07/2024 N/A 49375-XITC SKIN LESIONS, OVER 4 08/07/2024 N/A 28393-JMOGBLL NAIL, 6 OR MORE 11/06/2024 N/A 81253-LICZ SKIN LESIONS, OVER 4 11/06/2024 N/A 63823-LWHFZJW NAIL, 6 OR MORE 02/19/2025 N/A 41225-PSLX SKIN LESIONS, OVER 4 02/19/2025 N/A Encounters Encounter Location Date Provider Diagnosis [facility] [place] [address] [place] [address] 05/01/2024 Matilda Black Type 1 diabetes mellitus with diabetic polyneuropathy E10.42 ; Other hammer toe(s) (acquired), right foot M20.41 ; Tinea unguium B35.1 and Other hammer toe(s) (acquired), left foot M20.[address] [address] 08/07/2024 Matilda Gonzalez Other hammer toe(s) (acquired), right foot M20.41 ; Metatarsalgia, left foot M77.42 ; Type 1 diabetes mellitus with diabetic polyneuropathy E10.42 ; Tinea unguium B35.1 ; Other hammer toe(s) (acquired), left foot M20.42 ; Pain in left foot M79.672 ; Pain in left ankle and joints of left foot M25.572 and Bursitis of intermetatarsal bursa of left foot M77.[address] [address] 11/06/2024 Matilda Gonzalez Other hammer toe(s) (acquired), right foot M20.41 ; Metatarsalgia, left foot M77.42 ; Type 1 diabetes mellitus with diabetic polyneuropathy E10.42 ; Tinea unguium B35.1 ; Other hammer toe(s) (acquired), left foot M20.42 ; Pain in left foot M79.672 ; Pain in left ankle and joints of left foot M25.572 and Bursitis of intermetatarsal bursa of left foot M77.[address] [address] 02/19/2025 Matilda Gonzalez Type 1 diabetes mellitus with diabetic polyneuropathy E10.42 and Tinea unguium B35.1 Assessments Encounter Date Diagnosis (ICD Code) Assessment Notes Treatment Notes Treatment Clinical Notes Section Notes 05/01/2024 Other hammer toe(s) (acquired), right foot (ICD-10 - M20.41) Patient Educated with: DIABETIC FOOT CARE INSTRUCTIONS. pdf (DIABETIC FOOT CARE INSTRUCTIONS. pdf) 05/01/2024 Type 1 diabetes mellitus with diabetic polyneuropathy (ICD-10 - E10.42) 08/07/2024 Other hammer toe(s) (acquired), right foot (ICD-10 - M20.41) 08/07/2024 Metatarsalgia, left foot (ICD-10 - M77.42) 11/06/2024 Other hammer toe(s) (acquired), right foot (ICD-10 - M20.41) 02/19/2025 Tinea unguium (ICD-10 - B35.1) 02/19/2025 Type 1 diabetes mellitus with diabetic polyneuropathy (ICD-10 - E10.42) 11/06/2024 Metatarsalgia, left foot (ICD-10 - M77.42) 08/07/2024 Type 1 diabetes mellitus with diabetic polyneuropathy (ICD-10 - E10.42) 05/01/2024 Tinea unguium (ICD-10 - B35.1) 05/01/2024 Other hammer toe(s) (acquired), left foot (ICD-10 - M20.42) 08/07/2024 Tinea unguium (ICD-10 - B35.1) 11/06/2024 [...] Treatment Pending Test Test Name Order Date 88977-STBWBLK NAIL, 6 OR MORE 01/07/2012 98548-NMOKKYO NAIL, 6 OR MORE 04/11/2012 45060-OHHVPTA NAIL, 6 OR MORE 07/11/2012 34865-GJAIVRU NAIL, 6 OR MORE 10/03/2012 69950-KFAAICQ NAIL, 6 OR MORE 12/19/2012 98392-UEUPFLV NAIL, 6 OR MORE 03/23/2013 52519-UZYOGNV NAIL, 6 OR MORE 06/21/2013 16807-CHGSXWE NAIL, 6 OR MORE 09/20/2013 00140-UAMXOJD NAIL, 6 OR MORE 12/07/2013 03320-IHAYEGK NAIL, 6 OR MORE 03/14/2014 38843-XOHYGWO NAIL, 6 OR MORE 06/20/2014 82736-NBPKHRQ NAIL, 6 OR MORE 08/23/2014 09542-EYCULOW NAIL, 6 OR MORE 11/22/2014 25183-TYSEDWU NAIL, 6 OR MORE 02/13/2015 20056-KDIAYXC NAIL, 6 OR MORE 05/15/2015 97136-JZSQLTS NAIL, 6 OR MORE 08/12/2015 31216-VWGHCJB NAIL, 6 OR MORE 11/11/2015 03161-DAZBDCB NAIL, 6 OR MORE 02/19/2016 32406-UNZZIXW NAIL, 6 OR MORE 05/21/2016 70798-RUAMQVW NAIL, 6 OR MORE 10/05/2016 40573-SEWULZR NAIL, 6 OR MORE 01/11/2017 56017-UASHXEW NAIL, 6 OR MORE 04/12/2017 56191-WEKPYUN NAIL, 6 OR MORE 09/16/2017 65244-FMSJGKX NAIL, 6 OR MORE 12/16/2017 55293-KXGRSOF NAIL, 6 OR MORE 03/17/2018 72720-GHHOVJR NAIL, 6 OR MORE 07/14/2018 69285-OQKHOVP NAIL, 6 OR MORE 01/16/2019 62302-JKVUGEK NAIL, 6 OR MORE 08/17/2019 89723-ZTHJDEQ NAIL, 6 OR MORE 11/20/2019 24933-EWFDMTU NAIL, 6 OR MORE 03/07/2020 63458-TJBUBYK NAIL, 6 OR MORE 06/06/2020 81112-WAWWERS NAIL, 6 OR MORE 09/12/2020 46525-FHASXDW NAIL, 6 OR MORE 12/26/2020 02949-OSNAMUV NAIL, 6 OR MORE 04/07/2021 70511-GHTLCEE NAIL, 6 OR MORE 07/07/2021 98181-PCVNYSJ NAIL, 6 OR MORE 10/13/2021 65644-SHGUTDT NAIL, 6 OR MORE 01/12/2022 21330-RHCTVWK NAIL, 6 OR MORE 06/04/2022 79490-QVWNASD NAIL, 6 OR MORE 08/24/2022 69831-NRMPZLZ NAIL, 6 OR MORE 11/19/2022 83447-LIULUXR NAIL, 6 OR MORE 02/08/2023 32107-ZDBPUDZ NAIL, 6 OR MORE 05/20/2023 74495-QTCVWBL NAIL, 6 OR MORE 09/16/2023 25692-VBZQANQ NAIL, 6 OR MORE 01/24/2024 95948-GSDIHRT NAIL, 6 OR MORE 05/01/2024 43904-TJZOFTY NAIL, 6 OR MORE 08/07/2024 49169-SAIXFZU NAIL, 6 OR MORE 11/06/2024 12922-KPFJRVA NAIL, 6 OR MORE 02/19/2025 42058-Whobrnvk Plate 01/24/2024 24269-Xfmbhxrp Plate 08/24/2022 58654-Loosinbp Plate 10/13/2021 44532-Dicvowrd Plate 07/07/2021 69318-Rmytesfz Plate 11/22/2014 44444-Vvioilmj Plate 08/23/2014 47073-Fllhdhzv Plate 06/20/2014 27085-Uvxsddpd Plate 03/14/2014 49090-Zklfdiaq Plate 12/07/2013 05056-Cvpbltnm Plate 09/20/2013 99645-Olzbzpxv Plate 06/21/2013 16866-Mbgljdzf Plate Each Additional 52029-Yroqfyws Plate Each Additional 10/2021 19508, J0702- INJECT or DRAIN, JOINT/BUR SA 06/06/2020 47495-WIQQ SKIN LESIONS, OVER 4 07/08/19 22 72411-VXFG SKIN LESIONS, OVER 4 04/07/19 22 53648-GKJM SKIN LESIONS, OVER 4 12/27/19 21 85785-DRSP SKIN LESIONS, OVER 4 10/14/19 22 91862-BUEI SKIN LESIONS, OVER 4 01/13/20 22 19713-EAVM SKIN LESIONS, OVER 4 08/25/19 23 15282-HAIB SKIN LESIONS, OVER 4 06/05/19 85718-XYPY SKIN LESIONS, OVER 4 09/16/19 24 44588-FEWW SKIN LESIONS, OVER 4 05/20/19 24 61680-JIFX SKIN LESIONS, OVER 4 02/09/20 35824-LXAB SKIN LESIONS, OVER 4 11/20/19 55242-AWCD SKIN LESIONS, OVER 4 01/24/20 24 30342-XSXC SKIN LESIONS, OVER 4 05/02/19 27393-BWRU SKIN LESIONS, OVER 4 08/08/19 82454-XJAO SKIN LESIONS, OVER 4 11/07/19 43356-GMCL SKIN LESIONS, OVER 4 02/20/20 90852-QLHR SKIN LESIONS, 2 TO 4 06/07/19 21370-FZON SKIN LESIONS, 2 TO 4 09/13/19 27983-WEUM SKIN LESIONS, 2 TO 4 03/07/19 21 43034-RFPM SKIN LESIONS, 2 TO 4 11/20/19 20 86932-BULO SKIN LESIONS, 2 TO 4 08/17/19 20 68908-SLEU SKIN LESIONS, 2 TO 4 01/17/20 19 32905-HKCH SKIN LESIONS, 2 TO 4 07/15/19 19 37645-BMMO SKIN LESIONS, 2 TO 4 03/17/19 19 02535-NBZT SKIN LESIONS, 2 TO 4 12/17/19 18 07332-MGGW SKIN LESIONS, 2 TO 4 09/17/19 18 41078-KXBJ SKIN LESIONS, 2 TO 4 01/12/20 17 25244-EETL SKIN LESIONS, 2 TO 4 04/12/19 18 80019-NRUY SKIN LESIONS, 2 TO 4 06/22/19 14 71036-QOUB SKIN LESIONS, 2 TO 4 09/21/19 14 77369-YPLV SKIN LESIONS, 2 TO 4 12/08/19 14 09929-SBBM SKIN LESIONS, 2 TO 4 03/23/19 14 52583-KUEG SKIN LESIONS, 2 TO 4 10/04/19 13 35177-ZYKM SKIN LESIONS, 2 TO 4 07/12/19 13 70379-WVEL SKIN LESIONS, 2 TO 4 03/14/19 15 89530-ENHR SKIN LESIONS, 2 TO 4 06/21/19 15 64466-GJHD SKIN LESION 05/21/2016 90745-OHQK SKIN LESION 10/05/2016 Next Appt Details Provider Name:Matilda Gonzalez , 06/04/2025 02:00:00 PM, [address] [facility], [place], [address], Insurance Providers Payer Name Payer Address Payer Phone Subscriber Number Group Number Insured Name Patient Relationship to Insured Coverage Start Date Coverage End Date Medicare [employer] [address] [place] [address] [id number] Matty Mejia Self - patient is the insured Medical (General) History Medical History History ICD Code anxiety depression diabetic headaches/migraines high blood pressure psychiatric disorder reflux chicken pox Surgical History Surgery Date(Month/Year) Hospitalization History Reason Date(Month/Year) bad hip [facility] 10/31/2023 C- pt cant remember overnight sleep study 12/2014
[2025-02-28 14:18] LABS: MANUAL DIFF FLAG NO
[2025-02-28 14:24] LABS: Hematocrit 45.3 % (42.0-52.0); Hemoglobin 15.8 g/dl (14.0-18.0); Imm Gran Abs Auto 0.05 X10*3/uL (0.00-0.03); Imm Gran Pct Auto 0.6 % (0.0-0.4); Lymphocytes Absolute Auto 2.0 X10*3/uL (1.2-4.9); Mean Corpuscular HGB Conc 34.9 g/dl (31.0-36.0); Mean Corpuscular Hemoglobin 28.1 pg (27.0-33.0); Mean Corpuscular Volume 80.5 fL (80.0-98.0); NRBC Abs Auto 0.000 X10*3/uL (0.0-0.012); NRBC Pct Auto 0.0 /100WBC (0.0-0.2); Platelet Count 209 X10*3/uL (160-400); Red Blood Count 5.63 X10*6/uL (4.60-5.80); White Blood Count 8.5 X10*3/uL (4.8-10.8)
== END 2025-02-28 09:59 | disposition home or self-care (01) ==
LOC: HO.HMGCLR 09:58
PROVIDERS: PCP Internal Medicine
DX: Z79.899 Other long term (current) drug therapy (principal)
CPT/HCPCS: 36415; 85025